=== PATIENT | male | born 1935 | race Caucasian/White ===

== ENCOUNTER 2017-02-17 09:50 | Outpatient (CLI) | payer MEDICARE, MEDICAID ==
[~2017-02-17 09:50] MED LIST: ARICEPT5 MG ORAL; CARDIZEM30 MG ORAL; DONEPEZIL HCL5 M2 ORAL; LEVEMIR100 UNIT/1 SUBQ; MULTI VITAMIN1 EACH ORAL; NOVOLOG100 UNIT/3 SUBQ; OMEPRAZOLE20 M2 ORAL; POTASSIUM CHLO20 ME2 ORAL; PROTEIN POWDER454 GM PO; TYLENOL100 MG/11 PO; VIT C BIOFLAVO PO
--- NOTE | 2017-02-17 10:39 | GI Progress Note ---
Assessment/Plan Problems: (1) GERD (gastroesophageal reflux disease) ICD Codes: K21.9 - GERD (gastroesophageal reflux disease) SNOMED: 765842826 (2) diverting colostomy (3) S/P colostomy ICD Codes: Z93.3 - Colostomy status SNOMED: 21418088, 083105176, 428991572 (4) Anemia ICD Codes: D64.9 - Anemia SNOMED: 144895927 (5) Abdominal pain ICD Codes: R10.9 - Unspecified abdominal pain SNOMED: 19715386 Status: stable Status Narrative Seen with Dr. Ochoa. Assessment/Plan DATE OF PROCEDURE: 12/16/2013 SURGEON: Abner Ochoa M.D. SUMMARY OF FINDINGS: 1. Gastritis status post biopsy. 2. Small hiatal hernia. 3. Incomplete colonoscopic examination taken up to food stuff, see above for detail. RECOMMENDATIONS: 1. Follow up biopsies and treat accordingly. 2. The patient will need a repeat colonoscopy, need a better prep if the evaluation is for screening colonoscopy. hx of megacolon with colostomy colostomy takedown not performed will schedule for colonoscopy - CLD & (Nulytely/Suprep/Movi-Prep) prep instructions to be given. - NPO @ [place] day prior procedure. The patient was seen and examined at bedside and all new and available data was reviewed in the patients chart. I agree with the above findings, impression and plan. (Patient seen earlier today. Signature stamp does not reflect patient encounter time.). - Kay Ochoa MD Subjective Subjective no symptoms hx of diverting colostomy Objective T 98.1 Bp 172/89 P 101 94 RA General Appearance: WD/WN, no apparent distress, alert Cardiovascular: normal rate Respiratory/Chest: normal breath sounds, no respiratory distress Abdominal Exam: non tender, soft, other - colostomy Extremities: non-tender - wheelchair bound Modesta Avilez N.PMarlene Feb 17, 2017 10:39 ABNER OCHOA Feb 24, 2017 12:18
[2017-02-17 13:32] VITALS: BP 172/89
== END 2017-02-17 10:22 | disposition home or self-care (01) ==
LOC: PAN 09:50
DX: K21.9 Gastro-esophageal reflux disease without esophagitis (principal); Z93.3 Colostomy status; D64.9 Anemia, unspecified; R10.9 Unspecified abdominal pain; K44.9 Diaphragmatic hernia without obstruction or gangrene; K29.70 Gastritis, unspecified, without bleeding
CPT/HCPCS: 99212

== ENCOUNTER 2017-03-04 07:49 | Day surgery (SDC) | payer MEDICARE, OTHER ==
[~2017-03-04] VITALS: Ht 167.6 cm; Wt 84.8 kg
[2017-03-04] VITALS (8 sets, daily range): BP systolic 159–188; BP diastolic 75–121
[2017-03-04] MEDS ORDERED: Lidocaine 1% MPF 10mg/ml 5ml ONE (07:50)
[2017-03-04] MEDS ORDERED: D5 1/2NS 1000ml IV ONE (07:50)
[2017-03-04] MEDS ORDERED: Propofol 200mg/20ml IV ONE (07:50)
--- NOTE | 2017-03-04 08:47 | Anethesia Preoperative Eval ---
Anesthesia Pre-op PMH/ROS General Date of Evaluation: Mar 04, 2017 Time of Evaluation: 08:43 Anesthesiologist: michael ASA Score: ASA 3 Mallampati Score Class I : Soft palate, uvula, fauces, pillars visible Class II: Soft palate, uvula, fauces visible Class III: Soft palate, base of uvula visible Class IV: Only hard plate visible Mallampati Classification: Class II Surgeon: daniela Diagnosis: colon screening Surgical Procedure: colonoscopy Anesthesia History: none Social History: smoking - nonsmoker Family History: no anesthesia problems Allergies: Coded Allergies: No Known Allergies (Verified Allergy, Unknown, 12/29/06) Medications: see eMAR Past Medical History Cardiovascular: Reports: HTN Gastrointestinal/Genitourinary: Reports: GERD, CRI, other - diverticulosis, diverting colostomy Neurologic/Psychiatric: Reports: CVA, other - right sided weakness Endocrine: Reports: DM Hematology/Immune: Reports: anemia Other: obesity Anesthesia Pre-op Phys. Exam Physician Exam Constitutional: NAD Neurologic: CN 2-12 intact Cardiovascular: RRR Respiratory: CTA Gastrointestinal: S/NT/ND Airway Exam Mallampati Score: Class II MO: full Neck: decreased rom to lateral rotation TMD: 2fb ROM: limited Teeth: missing Dentures: upper, lower Anesthesia Pre-op A/P Labs Labs Test 03/04/17 09:10 White Blood Count 12.7 K/UL (4.8-10.8) Red Blood Count 4.32 M/UL (4.70-6.10) Hemoglobin 12.0 G/DL (14.2-18.0) Hematocrit 39.1 % (42.0-52.0) Mean Corpuscular Volume 90 FL (80-99) Mean Corpuscular Hemoglobin 27.8 PG (27.0-31.0) Mean Corpuscular Hemoglobin Concent 30.8 G/DL (32.0-36.0) Red Cell Distribution Width 14.1 % (11.6-14.8) Platelet Count 384 K/UL (150-450) Mean Platelet Volume 6.8 FL (6.5-10.1) Neutrophils (%) (Auto) 74.7 % (45.0-75.0) Lymphocytes (%) (Auto) 14.4 % (20.0-45.0) Monocytes (%) (Auto) 7.8 % (1.0-10.0) Eosinophils (%) (Auto) 2.5 % (0.0-3.0) Basophils (%) (Auto) 0.6 % (0.0-2.0) Glucose Level 52 MG/DL (74-106) Accucheck unable to read - low 138 following D50 ivp Risk Assessment & Plan Assessment: asa3 Plan: mac Status Change Before Surgery: No Pre-Antibiotics Drug: DENNISE Cruz Mar 04, 2017 08:47
[2017-03-04] MEDS ORDERED: Midazolam 2mg/2ml Inj IVP PRN (09:00)
[2017-03-04] MEDS ORDERED: DiphenhydrAMINE 50mg/ml Inj IVP PRN (09:00)
[2017-03-04] MEDS ORDERED: fentaNYL 100 mcg/2 mL IV PRN (09:00)
[2017-03-04] MEDS ORDERED: Atropine Inj 1mg/10ml Syr IV PRN (09:00)
--- NOTE | 2017-03-04 09:15 | Short Stay Surgery H&P ---
History of Present Illness History of Present Illness Chief Complaint see recent clinic note HPI Rico Ovideo is a 81 year old male who was admitted on for Colon Screening Patient History Allergies: Coded Allergies: No Known Allergies (Verified Allergy, Unknown, 12/29/06) PAST MEDICAL HISTORY: Past Surgeries: Social History: Medication History Scheduled Acetaminophen (Tylenol), 650 MG PO Q4HR, (Reported) Diltiazem HCl (Diltiazem 12Hr ER), 30 MG ORAL Q8HR, (Reported) Donepezil Hcl* (Aricept*), 5 MG ORAL DAILY, (Reported) Insulin Aspart* (Novolog*), 4 SUBQ BID, (Reported) Insulin Detemir (Levemir), 55 SUBQ Q12HR, (Reported) Insulin Detemir (Levemir), 24 SUBQ Q5PM, (Reported) Multivitamin (Multi Vitamin Daily), 1 TAB ORAL DAILY, (Reported) Omeprazole (Omeprazole), 20 MG ORAL DAILY, (Reported) Potassium Chloride (Potassium Chloride), 20 MEQ ORAL DAILY, (Reported) Miscellaneous Medications Insulin Aspart* (Novolog*), 0 SUBQ, (Reported) Plan Attestation Are the patient's medical conditions optimized for surgery? ANDREA COOK Mar 04, 2017 09:15
--- NOTE | 2017-03-04 09:15 | Pre-Procedure Note/Attestation ---
Pre-Procedure Note/Attestation Complete Prior to Procedure Planned Procedure: not applicable Procedure Narrative: colonoscopy Indications for Procedure Pre-Operative Diagnosis: screening colon Attestation I attest that I discussed the nature of the procedure; its benefits; risks and complications; and alternatives (and the risks and benefits of such alternatives ), prior to the procedure, with the patient (or the patient's legal front desk representative). I attest that, if there was a reasonable possibility of needing a blood transfusion, the patient (or the patient's legal front desk representative) was given the [facility] standardized written summary, pursuant to the Bala Bhavani Blood Safety Act ([place] Health and Safety Code # 1645, as amended). I attest that I re-evaluated the patient just prior to the surgery and that there has been no change in the patient's H&P, except as documented below: ANDREA COOK Mar 04, 2017 09:15
[2017-03-04 09:32] LABS: BASOPHILS % (AUTO) 0.6 % (0.0-2.0); EOSINOPHILS % (AUTO) 2.5 % (0.0-3.0); HEMATOCRIT 39.1 % (42.0-52.0); LYMPHOCYTES % (AUTO) 14.4 % (20.0-45.0); MEAN CORPUSCULAR VOLUME 90 FL (80-99); MONOCYTES % (AUTO) 7.8 % (1.0-10.0); NEUTROPHILS % (AUTO) 74.7 % (45.0-75.0); PLATELET COUNT 384 K/UL (150-450); RED BLOOD COUNT 4.32 M/UL (4.70-6.10); RED CELL DISTRIBUTION WIDTH 14.1 % (11.6-14.8); WHITE BLOOD COUNT 12.7 K/UL (4.8-10.8)
--- NOTE | 2017-03-04 09:48 | Endoscopy Procedure Note ---
Endoscopy Procedure Note Indication for Procedure: screening Procedures Performed: colonoscopy Operative Findings/Diagnosis: diverticuli, poor prep Specimen: none Pt Tolerated Procedure Well: Yes Estimated Blood Loss: none Anesthesiologist: arsalan Anesthesia: MAC Implant(s) used?: No 50 yrs or older w/o bx or poly: No 10yrs. F/U not recommended: Yes If not recommended, why?: Above average risk 10 yrs. F/U needed: Yes 18 years or older w/prev. colo: Yes <3yrs. since last colonoscopy: No ANDREA COOK Mar 04, 2017 09:48
--- NOTE | 2017-03-04 11:41 | Immediate Post-Op Evaluation ---
Immediate Post-Op Evalulation Immediate Post-Op Evalulation Procedure: colonoscopy Date of Evaluation: Mar 04, 2017 Time of Evaluation: 10:07 IV Fluids: D5/0.45ns 75ml: 0.9ns 150ml Blood Products: none Estimated Blood Loss: negligible Blood Pressure Systolic: 187 Blood Pressure Diastolic: 75 Pulse Rate: 85 Respiratory Rate: 18 O2 Sat by Pulse Oximetry: 100 Temperature (Fahrenheit): 97.3 Pain Score (1-10): 0 Nausea: No Vomiting: No Complications none Patient Status: awake, reacts, patent Hydration Status: adequate Drug: DENNISE Cruz Mar 04, 2017 11:41
--- NOTE | 2017-03-04 11:43 | 48 Hour Post Anesthesia Eval ---
Post Anesthesia Evaluation Procedure: colonoscopy Date of Evaluation: Mar 04, 2017 Time of Evaluation: 10:09 Blood Pressure Systolic: 188 0: 85 Pulse Rate: 85 Respiratory Rate: 18 Temperature (Fahrenheit): 97.3 O2 Sat by Pulse Oximetry: 99 Airway: patent Nausea: No Vomiting: No Pain Intensity: 0 Hydration Status: adequate Cardiopulmonary Status: stable Mental Status/LOC: patient returned to baseline Post-Anesthesia Complications: none Follow-up care needed: N/A DENNISE COTTRELL Mar 04, 2017 11:43
--- NOTE | 2017-03-04 15:33 | Procedure Note ---
DATE OF PROCEDURE: 03/04/2017 SURGEON: Abner Ochoa M.D. PROCEDURE: Colonoscopy. ANESTHESIA: Per Dr. Jennifer Rao. INSTRUMENT: Olympus adult flexible colonoscope. INDICATION: Screening colonoscopy evaluation. The patient also is going for the colostomy takedown and he wanted the colonoscopy before that. REASON FOR PROCEDURE: The procedure, risks, benefits, and possible consequences, including hemorrhage, aspiration, perforation and infection, and alternative treatments, were explained to the patient/legal guardian by Dr. Abner Ochoa and the patient/legal guardian understood and accepted these risks. DESCRIPTION OF PROCEDURE: After informed consent was obtained and the patient was adequately sedated, the Olympus adult colonoscope was introduced through the colostomy and advanced to mid transverse colon where we encountered solid stool. We could not pass the scope because there was a solid stool in that area. There was only one diverticula seen right at the opening. The rest of the exam was grossly within normal limits. No obvious colitis, infection, nor any other pathology. SUMMARY OF FINDINGS: 1. Incomplete colonoscopy exam secondary to poor prep. 2. One single diverticula seen right at the opening. 3. Otherwise, no evidence of any colitis at this time. RECOMMENDATIONS: Apparently, the patient is to be evaluated for possible colostomy takedown. At this time, based on the amount of the colon that we saw, there was no obvious colitis, so I think the patient is okay to go for the surgery. I want to thank, Dr. Rene Sin, for this kind referral. Abner Ochoa M.D. DR: MONTRELL JOB#: [id number] CC: Rene Sin M.D.; Fax#: [phone]
--- NOTE | 2017-03-07 15:38 | Cardiology Report ---
APPROVED REPORT EKG Measurement Heart [id number] ME [id number] [id number] Sinus rhythm with occasional premature ventricular complexes Right bundle branch block Left anterior fascicular block Bifascicular block Abnormal ECG
== END 2017-03-04 12:10 | disposition home or self-care (01) ==
LOC: GAS 07:49
DX: Z12.11 Encounter for screening for malignant neoplasm of colon (principal); K57.90 Diverticulosis of intestine, part unspecified, without perforation or abscess without bleeding; I10 Essential (primary) hypertension; Z86.73 Personal history of transient ischemic attack (TIA), and cerebral infarction without residual deficits; E11.9 Type 2 diabetes mellitus without complications
CPT/HCPCS: 36415; 82947; 82962; 85025; 93005; 94003; 94150

== ENCOUNTER 2017-03-26 13:06 | Outpatient (CLI) | payer MEDICARE, OTHER ==
[2017-03-26 13:19] VITALS: BP 150/74
--- NOTE | 2017-03-26 14:22 | GI Progress Note ---
Assessment/Plan Problems: (1) diverting colostomy (2) Anemia ICD Codes: D64.9 - Anemia SNOMED: 826415926 (3) GERD (gastroesophageal reflux disease) ICD Codes: K21.9 - GERD (gastroesophageal reflux disease) SNOMED: 320776570 (4) S/P colostomy ICD Codes: Z93.3 - Colostomy status SNOMED: 83655426, 405284236, 534779284 Status: doing well, stable Status Narrative Seen with Dr. Cook. Assessment/Plan referred for surgical consult, Dr. Traylor for colostomy take down. RTC after procedure. The patient was seen and examined at bedside and all new and available data was reviewed in the patients chart. I agree with the above findings, impression and plan. (Patient seen earlier today. Signature stamp does not reflect patient encounter time.). - Kay Cook MD Subjective Gastrointestinal/Abdominal: Reports: no symptoms Objective Last 24 Hour Vital Signs Date Time Temp Pulse Resp B/P (MAP) Pulse Ox O2 Delivery O2 Flow Rate FiO2 03/26/17 13:19 98.1 82 18 150/74 92 General Appearance: WD/WN, no apparent distress, alert Cardiovascular: normal rate Respiratory/Chest: normal breath sounds, no respiratory distress Abdominal Exam: normal bowel sounds, non tender, soft, other - colostomy Extremities: non-tender Modesta Avilez N.P. Mar 26, 2017 14:22 ANDREA COOK Mar 26, 2017 15:20
== END 2017-03-26 13:40 | disposition home or self-care (01) ==
LOC: PAN 13:06
DX: K21.9 Gastro-esophageal reflux disease without esophagitis (principal); Z93.3 Colostomy status; D64.9 Anemia, unspecified
CPT/HCPCS: 99212

== ENCOUNTER 2017-04-09 09:52 | Outpatient (CLI) | payer MEDICARE, OTHER ==
--- NOTE | 2017-04-09 14:42 | Diagnostic Imaging Report ---
Indication: Preoperative assessment before a colostomy takedown Technique: Continuous helical transaxial imaging of the abdomen and pelvis was obtained from the lung bases to the pubic symphysis. No intravenous contrast was administered. Coronal 2-D reformats were also obtained. Automatic Exposure Control was utilized. Total Dose length Product (DLP): 963.[address] Dose Index Volume (CTDIvol): 18.6 mGy Comparison: 05/02/2014 CT abdomen and pelvis Findings: The patient reportedly had a Yuriy procedure. Currently, there is no rectal stump. The distal rectosigmoid region communicates with left lower quadrant colostomy which appears to be a double barrel type colostomy containing both the efferent rectosigmoid colon as well as the afferent proximal colon. This configuration is unchanged from 05/02/2014. The left lower quadrant colostomy is notable for fairly large parastomal hernia. The rectosigmoid colon is severely distended as was the case previously as well. Currently there is a moderate to severe degree of stool in the distended rectosigmoid colon. There is no evidence of small bowel or large bowel obstruction. There is no free air or free fluid. Arterial vascular calcifications are moderate in degree. The kidneys are somewhat atrophic. There is suggestion of bilateral renal cysts. There is a small right pleural effusion and right posterior basal atelectasis present. Trace pericardial fluid noted. Small hiatal hernia is present. Prostate calcification noted. The bladder is unremarkable. IMPRESSION: Double barrel left lower quadrant colostomy with large parastomal hernia containing fat and small bowel demonstrated. Marked distention of the rectosigmoid colon filled with stool. Similar findings noted previously. Atherosclerotic disease. Atrophic kidneys Bilateral renal cysts not well evaluated on this exam. Small right pleural effusion and atelectasis. Trace pericardial fluid. The CT scanner at [facility] is accredited by the [employer] and the scans are performed using dose optimization techniques as appropriate to a performed exam including Automatic Exposure control.
== END 2017-04-09 11:52 | disposition home or self-care (01) ==
LOC: CAT 09:52
DX: Z01.818 Encounter for other preprocedural examination (principal); K43.5 Parastomal hernia without obstruction or gangrene; I70.90 Unspecified atherosclerosis; N26.1 Atrophy of kidney (terminal); N28.1 Cyst of kidney, acquired; J90 Pleural effusion, not elsewhere classified
CPT/HCPCS: 74176

== ENCOUNTER 2017-07-01 08:18 | Inpatient (IN) | payer MEDICARE, OTHER ==
[~2017-07-01] VITALS: Ht 165.1 cm; Wt 97.2 kg
--- NOTE | 2017-07-01 08:10 | Emergency Room Report ---
History of Present Illness General Chief Complaint: Dyspnea/Respdistress Source: Patient Present Illness HPI Patient is an 81-year-old male brought in by EMS after increased difficulty breathing and desaturation. Patient was started on supplemental oxygen. Patient noted to have rhonchi by EMS. The patient had reportedly been drinking some fluid and subsequently a possibly aspirated. Patient had a history of CVA. Allergies: Coded Allergies: No Known Allergies (Verified Allergy, Unknown, 12/29/06) Patient History Past Medical History: old chart reviewed Reviewed Nursing Documentation: PMH: Agreed; PSxH: Agreed Nursing Documentation-PMH Hx Cardiac Problems: Yes Hx Hypertension: Yes Hx Gastrointestinal Problems: Yes - colostomy Hx Neurological Problems: Yes - dementia Hx Cerebrovascular Accident: Yes Review of Systems All Other Systems: limited - by acuity Physical Exam Vital Signs Date Time Temp Pulse Resp B/P (MAP) Pulse Ox O2 Delivery O2 Flow Rate FiO2 07/01/17 07:58 98.2 128 26 243/115 95 Non-Rebreather 15.0 98.2 Sp02 EP Interpretation: reviewed, normal General Appearance: normal inspection, alert, GCS 15, obese, Chronically Ill Head: atraumatic ENT: normal ENT inspection, hearing grossly normal, normal voice Neck: normal inspection, full range of motion, supple, no bony tend Respiratory: no retraction, respiratory distress, rhonchi Cardiovascular #1: regular rate, rhythm, no edema Gastrointestinal: normal inspection, normal bowel sounds, non tender, soft, no guarding, no hernia Genitourinary: no CVA tenderness Musculoskeletal: normal inspection, back normal Neurologic: normal inspection, alert, responsive, motor weakness Psychiatric: normal inspection, judgement/insight normal, mood/affect normal Skin: normal inspection, normal color, no rash Medical Decision Making Diagnostic Impression: Primary Impression: Sinus tachycardia Additional Impressions: Bifascicular bundle branch block Oxygen desaturation ER Course Patient presented for shortness of breath.Differential included but was not limited to anemia, pneumonia, pneumothorax, myocardial infarction, pericardial effusion, congestive heart failure, acidosis. Because of complexity of patient' s case laboratory testing and imaging studies were ordered. I EKG interpreted by me showed sinus tachycardia with a rate of [address] changes. Patient was noted to have a bifascicular block. Chest x-ray read by radiology showed the right-sided patchy infiltrate as well as small right pleural effusion. The patient was given IV antibiotics. The patient's lactic acid level was noted to be initially greater than 2 repeat lactic acid level was improved after BiPAP Labs Test 07/01/17 08:23 07/01/17 09:52 White Blood Count 13.5 K/UL (4.8-10.8) Red Blood Count 4.71 M/UL (4.70-6.10) Hemoglobin 12.6 G/DL (14.2-18.0) Hematocrit 40.8 % (42.0-52.0) Mean Corpuscular Volume 87 FL (80-99) Mean Corpuscular Hemoglobin 26.8 PG (27.0-31.0) Mean Corpuscular Hemoglobin Concent 31.0 G/DL (32.0-36.0) Red Cell Distribution Width 15.6 % (11.6-14.8) Platelet Count 320 K/UL (150-450) Mean Platelet Volume 6.5 FL (6.5-10.1) Neutrophils (%) (Auto) 50.4 % (45.0-75.0) Lymphocytes (%) (Auto) 36.8 % (20.0-45.0) Monocytes (%) (Auto) 5.4 % (1.0-10.0) Eosinophils (%) (Auto) 6.3 % (0.0-3.0) Basophils (%) (Auto) 1.2 % (0.0-2.0) Urine Color Pale yellow Urine Appearance Clear Urine pH 6 (4.5-8.0) Urine Specific Osborne 1.015 (1.005-1.035) Urine Protein 4+ (NEGATIVE) Urine Glucose (UA) 2+ (NEGATIVE) Urine Ketones Negative (NEGATIVE) Urine Occult Blood 2+ (NEGATIVE) Urine Nitrite Negative (NEGATIVE) Urine Bilirubin Negative (NEGATIVE) Urine Urobilinogen Normal MG/DL (0.0-1.0) Urine Leukocyte Esterase Negative (NEGATIVE) Urine RBC 2-4 /HPF (0 - 0) Urine WBC 0-2 /HPF (0 - 0) Urine Squamous Epithelial Cells Occasional /LPF Urine Amorphous Sediment Few /LPF (NONE) Urine Bacteria Occasional /HPF (NONE) Sodium Level 142 MMOL/L (136-145) Potassium Level 3.9 MMOL/L (3.5-5.1) Chloride Level 106 MMOL/L (98-107) Carbon Dioxide Level 28 MMOL/L (21-32) Anion Gap 9 mmol/L (5-15) Blood Urea Nitrogen 37 mg/dL (7-18) Creatinine 2.1 MG/DL (0.55-1.30) Estimat Glomerular Filtration Rate mL/min (>60) Glucose Level 198 MG/DL (74-106) Calcium Level 9.4 MG/DL (8.5-10.1) Total Bilirubin 0.3 MG/DL (0.2-1.0) Aspartate Amino Transf (AST/SGOT) 15 U/L (15-37) Alanine Aminotransferase (ALT/SGPT) 23 U/L (12-78) Alkaline Phosphatase 106 U/L (46-116) Total Creatine Kinase 39 U/L (26-308) Creatine Kinase MB 0.7 NG/ML (0.0-3.6) Creatine Kinase MB Relative Index 1.7 Troponin I 0.000 ng/mL (0.000-0.056) Pro-B-Type Natriuretic Peptide 1646 pg/mL (0-125) Total Protein 9.0 G/DL (6.4-8.2) Albumin 2.9 G/DL (3.4-5.0) Globulin 6.1 g/dL Albumin/Globulin Ratio 0.5 (1.0-2.7) Lipase 597 U/L (73-393) EKG Diagnostic Results Rate: tachycardiac Rhythm: NSR ST Segments: no acute changes Rhythm Strip Diag. Results EP Interpretation: yes Rhythm: NSR, no PVC's, no ectopy Chest X-Ray Diagnostic Results Chest X-Ray Diagnostic Results : Chest X-Ray Ordered: Yes # of Views/Limited/Complete: 1 View Indication: Shortness of Breath EP Interpretation: No Interpretation: no pneumothorax, other - patchy airspace disease, small right effusion Last Vital Signs Date Time Temp Pulse Resp B/P (MAP) Pulse Ox O2 Delivery O2 Flow Rate FiO2 07/01/17 07:58 98.2 128 26 243/115 95 Non-Rebreather 15.0 98.2 Status: unchanged Disposition: ADMITTED INPATIENT Condition: Serious Giancarlo Velasquez July 01, 2017 08:10
[2017-07-01 08:37] VITALS: BP 155/79
[2017-07-01 08:55] LABS: APPEARANCE,URINE CLEAR; BILIRUBIN, URINE NEGATIVE (NEGATIVE); COLOR,URINE PALE YELLOW; GLUCOSE, URINE (UA) 2+ (NEGATIVE); KETONES,URINE NEGATIVE (NEGATIVE); LEUKOCYTE ESTERASE ,URINE NEGATIVE (NEGATIVE); NITRITE,URINE NEGATIVE (NEGATIVE); PH,URINE 6 (4.5-8.0); PROTEIN,URINE 4+ (NEGATIVE); UROBILINOGEN,URINE NORMAL MG/DL (0.0-1.0)
[2017-07-01 09:10] LABS: ANION GAP 9 mmol/L (5-15); BLOOD UREA NITROGEN 37 mg/dL (7-18); CALCIUM 9.4 MG/DL (8.5-10.1); CARBON DIOXIDE 28 MMOL/L (21-32); CHLORIDE 106 MMOL/L (98-107); CREATININE 2.1 MG/DL (0.55-1.30); POTASSIUM 3.9 MMOL/L (3.5-5.1); SODIUM 142 MMOL/L (136-145)
--- NOTE | 2017-07-01 09:13 | Pulmonolgy Critical Care Note ---
Critical Care - Asmt/Plan Problems: (1) Hypertensive urgency (2) BiPAP (biphasic positive airway pressure) dependence (3) Acute hypoxemic respiratory failure (4) Oxygen desaturation (5) Bifascicular bundle branch block (6) HTN (hypertension) (7) CVA (cerebral infarction) (8) CRI (chronic renal insufficiency) (9) DM (diabetes mellitus) (10) GERD (gastroesophageal reflux disease) (11) diverting colostomy (12) Diverticulitis Respiratory: CXR, ABG, other - Continue BiPAP for now, will attempt to wean later, optimize pulmonary hygiene/mobilzie as tolerated, RTC and PRN HHN's, F/U D-dimer Cardiac: continue to monitor HR/BP, cardiac imaging - F/U TTE, other - PRN anti -hypertensive, cards eval Renal: F/U I&O, check electrolytes, other - Renal eval Infectious Disease: check cultures, add antibiotics - Vancomycin and Zosyn Gastrointestinal: hold feedings - until respiratory status stable, then will need a swallow eval Endocrine: monitor blood sugar, check TSH, check HgA1C, continue sliding scale insulin Hematologic: monitor H/H, other - F/U labs all pending Neurologic: keep patient comfortable Prophylaxis: Protonix, Heparin - SQ Disposition: transfer to - ICU Time Spent (Minutes): 60 Notes Reviewed: other - ER Discussed with: nurses Critical Care - Objective Last 24 Hour Vital Signs Date Time Temp Pulse Resp B/P (MAP) Pulse Ox O2 Delivery O2 Flow Rate FiO2 07/01/17 08:57 100 07/01/17 08:39 134 38 Non-Rebreather 15.0 07/01/17 08:37 98.2 134 38 155/79 100 Non-Rebreather 15.0 98.2 07/01/17 07:58 98.2 128 26 243/115 95 Non-Rebreather 15.0 98.2 Status: awake, other - on BiPAP Condition: critical HEENT: atraumatic, normocephalic Neck: full ROM Lungs: rales - BiB rales, rhonchi - scattered Heart: HR/BP unstable Abdomen: soft, non-tender, active bowel sounds, other - colostomy Extremities: no C/C/E Accucheck: 228 Critical Care - Subjective ROS Limited/Unobtainable: Yes ICU Day: 1 Intubation Day: N/A Interval Events: 81 M h/o prior CVA, PNA, colostomy, CKD, HTN, GERD BIB EMS from SNF with acute hypoxemia and SOB, no wheezing, no F/C, BP elevated in ER, initially on 15L NRBFM, then placed on BiPAP, labs pending. Per report may have aspirated while drinking. CXR with mild PVC and small R effusion, R base atx vs infiltrate, ECG with bifasicular block, remainder of labs pending. Condition: critical IV Access: peripheral EKG Rhythm: Sinus Rhythm FI02: 100 Sputum Amount: Scant Subjective: + SOB, + cough, no wheezing, no CP, no F/C, no NVDC, no abdominal pain or urinary complaints CXR: Mild PVC, small R effusion, R base atx/inf Labs: PENDING ASIF MOORE M.D. July 01, 2017 09:13
[2017-07-01 09:14] LABS: BASOPHILS % (AUTO) 1.2 % (0.0-2.0); EOSINOPHILS % (AUTO) 6.3 % (0.0-3.0); HEMATOCRIT 40.8 % (42.0-52.0); HEMOGLOBIN 12.6 G/DL (14.2-18.0); LYMPHOCYTES % (AUTO) 36.8 % (20.0-45.0); MEAN CORPUSCULAR VOLUME 87 FL (80-99); MONOCYTES % (AUTO) 5.4 % (1.0-10.0); NEUTROPHILS % (AUTO) 50.4 % (45.0-75.0); PLATELET COUNT 320 K/UL (150-450); RED BLOOD COUNT 4.71 M/UL (4.70-6.10); RED CELL DISTRIBUTION WIDTH 15.6 % (11.6-14.8); WHITE BLOOD COUNT 13.5 K/UL (4.8-10.8)
[2017-07-01 09:23] LABS: ALANINE AMINOTRANSFERASE 23 U/L (12-78); ALBUMIN 2.9 G/DL (3.4-5.0); ALBUMIN/GLOBULIN RATIO 0.5 (1.0-2.7); ALKALINE PHOSPHATASE 106 U/L (46-116); ASPARTATE AMINO TRANSFERASE 15 U/L (15-37); BILIRUBIN,TOTAL 0.3 MG/DL (0.2-1.0); CKMB 0.7 NG/ML (0.0-3.6); CREATINE KINASE 39 U/L (26-308)
[2017-07-01 09:50] VITALS: BP 136/72
[2017-07-01] MEDS ORDERED: Ampicillin/Sulbactam Sod 3 GM in NS 110 ML IVPB ONE (10:00)
--- NOTE | 2017-07-01 10:32 | Diagnostic Imaging Report ---
Indication: Shortness of breath Technique: XRAY Chest 1v Comparison: 02/19/2009 Findings: Heart size and mediastinal contours are stable compared to the prior exam allowing for differences in patient positioning. Atherosclerotic calcifications noted in the aorta. There patchy airspace opacities in the right lower lung with a small right pleural effusion. The size of most concerning for pneumonia. Clinical correlation and radiographic follow-up to resolution is recommended. There is no pneumothorax. No acute osseous abnormality is seen. IMPRESSION: Hazy right lower lung airspace opacities and a small right pleural effusion. Findings are most concerning for pneumonia. Clinical correlation and radiographic follow-up to resolution recommended.
[2017-07-01 12:00] VITALS: BP 160/94
[2017-07-01] MEDS ORDERED: Acetaminophen 500mg (ES) tab ORAL PRN ×2 (12:00)
--- NOTE | 2017-07-01 12:59 | GI Initial Consult Note ---
History of Present Illness General Date patient seen: July 01, 2017 Time patient seen: 12:57 Reason for Hospitalization: Dyspnea/Respdistress Referring physician: DONNIE PORTER Reason for Consultation: COLOSTOMY Present Illness HPI Patient is an 81-year-old male brought in by EMS after increased difficulty breathing and desaturation. Patient was started on supplemental oxygen. Patient noted to have rhonchi by EMS. The patient had reportedly been drinking some fluid and subsequently a possibly aspirated. H/o prior CVA, PNA, colostomy , CKD, HTN, GERD BIB EMS from SNF with acute hypoxemia and SOB. Patient was recently seen in our clinic, referred to surgery for possible colostomy take down. Pt seen, awake currently with SOB on Bibap. Labs reviewed presents with mild leukocytosis, renal insufficiency and elevated lipase levels. Had recent colonoscopy February 2017, with incomplete exam due to poor prep. Home Meds Reported Medications Insulin Aspart* (NOVOLOG*) 100 Unit/1 Ml Insuln.pen, 6 SUBQ 1200/5 PM , #1 EA 0 Refills 11/22/13 Donepezil Hcl* (ARICEPT*) 5 Mg Tablet, 5 MG ORAL DAILY, TAB 11/22/13 Acetaminophen (TYLENOL) 100 Mg/1 Ml Drops.susp, 650 MG PO Q4HR 10/12/12 Insulin Detemir (LEVEMIR) 100 Unit/1 Ml Vial, 30 UNIT SUBQ 9 PM , VIAL 10/12/12 Insulin Detemir (LEVEMIR) 100 Unit/1 Ml Vial, 75 SUBQ 9AM, VIAL 10/12/12 Potassium Chloride (POTASSIUM CHLORIDE) 20 Meq Packet, 20 MEQ ORAL DAILY, #30 PKT 0 Refills 10/12/12 Diltiazem HCl (Diltiazem 12Hr ER) 30 Mg Tab, 30 MG ORAL Q8HR, TAB 10/12/12 Multivitamin (MULTI VITAMIN DAILY) 1 Each Tablet, 1 TAB ORAL DAILY, #30 TAB 0 Refills 10/12/12 Med list reviewed/reconciled: Yes Allergies: Coded Allergies: No Known Allergies (Verified , 12/29/06) Patient History Limited by: medical condition History Provided By: Medical Record Past Medical History: other - see HPI Past Surgical History: other - colostomy placement Social History: Denies: smoking, alcohol use, drug use, other Review of Systems All Other Systems: negative except mentioned in HPI Physical Exam Vital Signs Date Time Temp Pulse Resp B/P (MAP) Pulse Ox O2 Delivery O2 Flow Rate FiO2 07/01/17 07:58 98.2 128 26 243/115 95 Non-Rebreather 15.0 98.2 07/01/17 08:57 100 Sp02 EP Interpretation: reviewed, normal Labs Laboratory Tests Test 07/01/17 08:23 07/01/17 09:52 07/01/17 10:40 White Blood Count 13.5 K/UL (4.8-10.8) H Red Blood Count 4.71 M/UL (4.70-6.10) Hemoglobin 12.6 G/DL (14.2-18.0) L Hematocrit 40.8 % (42.0-52.0) L Mean Corpuscular Volume 87 FL (80-99) Mean Corpuscular Hemoglobin 26.8 PG (27.0-31.0) L Mean Corpuscular Hemoglobin Concent 31.0 G/DL (32.0-36.0) L Red Cell Distribution Width 15.6 % (11.6-14.8) H Platelet Count 320 K/UL (150-450) Mean Platelet Volume 6.5 FL (6.5-10.1) Neutrophils (%) (Auto) 50.4 % (45.0-75.0) Lymphocytes (%) (Auto) 36.8 % (20.0-45.0) Monocytes (%) (Auto) 5.4 % (1.0-10.0) Eosinophils (%) (Auto) 6.3 % (0.0-3.0) H Basophils (%) (Auto) 1.2 % (0.0-2.0) Urine Color Pale yellow Urine Appearance Clear Urine pH 6 (4.5-8.0) Urine Specific [place] 1.015 (1.005-1.035) Urine Protein 4+ (NEGATIVE) H Urine Glucose (UA) 2+ (NEGATIVE) H Urine Ketones Negative (NEGATIVE) Urine Occult Blood 2+ (NEGATIVE) H Urine Nitrite Negative (NEGATIVE) Urine Bilirubin Negative (NEGATIVE) Urine Urobilinogen Normal MG/DL (0.0-1.0) Urine Leukocyte Esterase Negative (NEGATIVE) Urine RBC 2-4 /HPF (0 - 0) H Urine WBC 0-2 /HPF (0 - 0) Urine Squamous Epithelial Cells Occasional /LPF Urine Amorphous Sediment Few /LPF (NONE) H Urine Bacteria Occasional /HPF (NONE) Sodium Level 142 MMOL/L (136-145) Potassium Level 3.9 MMOL/L (3.5-5.1) Chloride Level 106 MMOL/L (98-107) Carbon Dioxide Level 28 MMOL/L (21-32) Anion Gap 9 mmol/L (5-15) Blood Urea Nitrogen 37 mg/dL (7-18) H Creatinine 2.1 MG/DL (0.55-1.30) H Estimat Glomerular Filtration Rate mL/min (>60) Glucose Level 198 MG/DL (74-106) H Lactic Acid Level 2.40 mmol/L (0.66-2.22) H 1.30 mmol/L (0.66-2.22) Calcium Level 9.4 MG/DL (8.5-10.1) Total Bilirubin 0.3 MG/DL (0.2-1.0) Aspartate Amino Transf (AST/SGOT) 15 U/L (15-37) Alanine Aminotransferase (ALT/SGPT) 23 U/L (12-78) Alkaline Phosphatase 106 U/L (46-116) Total Creatine Kinase 39 U/L (26-308) Creatine Kinase MB 0.7 NG/ML (0.0-3.6) Creatine Kinase MB Relative Index 1.7 Troponin I 0.000 ng/mL (0.000-0.056) Pro-B-Type Natriuretic Peptide 1646 pg/mL (0-125) H Total Protein 9.0 G/DL (6.4-8.2) H Albumin 2.9 G/DL (3.4-5.0) L Globulin 6.1 g/dL Albumin/Globulin Ratio 0.5 (1.0-2.7) L Lipase 597 U/L (73-393) H Arterial Blood pH 7.300 (7.350-7.450) Arterial Blood Partial Pressure CO2 49.9 mmHg (35.0-45.0) H Arterial Blood Partial Pressure O2 506.0 mmHg (75.0-100.0) H Arterial Blood HCO3 24.2 mmol/L (22.0-26.0) Arterial Blood Oxygen Saturation 99.3 % (92.0-98.0) H Arterial Blood Base Excess -2.4 Guero Test Positive General Appearance: well appearing, no apparent distress, alert Head: normocephalic EENT: PERRL/EOMI, normal ENT inspection Neck: supple Respiratory: normal breath sounds, no respiratory distress Cardiovascular: normal rate Gastrointestinal: normal inspection, non tender, soft, normal bowel sounds, non -distended Rectal: deferred Genitourinary: deferred Musculoskeletal: normal inspection, back normal Neurologic: normal inspection, alert, oriented x3, responsive Psychiatric: normal inspection, judgement/insight normal, memory normal Skin: normal inspection, normal color, no rash, warm/dry, palpation normal, well hydrated Lymphatic: normal inspection, no adenopathy Current Medications Current Medications Medications (Trade) Dose Ordered Sig/Jared Route PRN Reason Start Time Stop Time Status Last Admin Dose Admin Acetaminophen (Tylenol) 500 mg Q6HR PRN ORAL moderate pain (4-6) 07/01/17 12:00 07/31/17 11:59 Acetaminophen (Tylenol) 650 mg Q4H PRN ORAL Mild Pain/Temp > 100.5 07/01/17 12:00 07/31/17 11:59 Acetaminophen (Tylenol) 1,000 mg Q6HR PRN ORAL Severe Pain (Pain Scale 7-10) 07/01/17 12:00 07/31/17 11:59 Dextrose (Dextrose 50%) 25 ml STAT PRN IV Hypoglycemia 07/01/17 11:45 07/31/17 11:44 Dextrose (Dextrose 50%) 50 ml STAT PRN IV Hypoglycemia 07/01/17 11:45 07/31/17 11:44 Diltiazem HCl (Cardizem) 30 mg Q8HR ORAL 07/01/17 14:00 07/31/17 13:59 Donepezil HCl (Aricept) 5 mg DAILY ORAL 07/02/17 09:00 08/01/17 08:59 Multivitamins (Multivitamins) 1 tab DAILY ORAL 07/02/17 09:00 08/01/17 08:59 Potassium Chloride (K-Dur) 20 meq DAILY ORAL 07/02/17 09:00 08/01/17 08:59 GI: Plan Problems: (1) Oxygen desaturation (2) diverting colostomy (3) DM (diabetes mellitus) (4) GERD (gastroesophageal reflux disease) (5) Diverticulitis (6) Abdominal pain (7) CVA (cerebral infarction) Plan maintain NPO + IVFs until respiratory status stable will need swallow evaluation after prn transfusions ppi colostomy care abx per ID trend lipase fu labs, lipid panel Discussed with Dr. Ochoa. Thank you for this patient referral, we will follow. The patient was seen and examined at bedside and all new and available data was reviewed in the patients chart. I agree with the above findings, impression and plan. (Patient seen earlier today. Signature stamp does not reflect patient encounter time.). - MD Fatmata BlankenshipDign[facility] Michael Renee July 01, 2017 12:59
[2017-07-01] MEDS: dilTIAZem HCl 30mg tab ORAL SCH ×2 (14:00→21:27)
[2017-07-01 16:00] VITALS: BP 159/91
--- NOTE | 2017-07-01 16:07 | Cardiology Report ---
APPROVED REPORT EXAM: Two-dimensional and M-mode echocardiogram with Doppler and color Doppler. INDICATION Congestive Heart Failure M-Mode DIMENSIONS Left Atrium (MM)2.9 (1.6-4.0cm) Aortic Root3.5 (2.0-3.7cm) Aortic Cusp Exc.1.8 (1.5-2.0cm) Technically difficult study due to poor acoustical windows. M-mode measurements not obtainable due to cardiac structure. Normal left ventricular chamber size, systolic function and wall motion. Left ventricular ejection fraction estimated to be 55-60% to extend visualized. No evidence of left ventricular hypertrophy. No evidence of pericardial or pleural effusion. All other cardiac chamber sizes are within normal limits. Focal aortic valve sclerosis with adequate cusp excursion. Thickened mitral valve leaflets with normal excursion. Mild mitral annulus and aortic root calcification. Pulmonic valve not well visualized. Normal tricuspid valve structure. IVC is normal in size and collapsible with respiration. A color flow and spectral Doppler study was performed and revealed: No aortic regurgitation. Trace mitral regurgitation. Mitral inflow velocities indicates possible pseudo normalization pattern implying significant left ventricular diastolic dysfunction. Mild tricuspid regurgitation. Tricuspid systolic velocities suggests peak right ventricular systolic pressure of 44 mmHg Consistent with mild pulmonary hypertension. Pulmonic regurgitation present.
[2017-07-01] MEDS: Potassium Chloride 10 MEQ in D5 1/2NS 1,000 ML IV SCH (16:13)
[2017-07-01] MEDS ORDERED: NovoLOG Insulin Flexpen SUBQ SCH (16:30)
[2017-07-01] MEDS ORDERED: Albuterol/Ipratropium 3ml neb HHN PRN (18:15)
--- NOTE | 2017-07-01 18:45 | Consultation ---
DATE OF CONSULTATION: 07/01/2017 INFECTIOUS DISEASE CONSULTATION CONSULTING PHYSICIAN: Cheo Bhagat M.D. PRIMARY ATTENDING PHYSICIAN: Rene Sin M.D. REASON FOR CONSULT: Sepsis, pneumonia. HISTORY OF PRESENT ILLNESS: The patient is an 81-year-old white man who is a custodial resident admitted today because of decrease in O2 saturation and shortness of breath. The patient was drinking water and there was a concern of possible aspiration. The patient was tachycardic at the time of admission with a heart rate up to 134, was put on BiPAP, and had mild leukocytosis. PAST MEDICAL HISTORY: Significant for hypertension, diabetes mellitus type 2, dementia, history of CVA, and status post colostomy. MEDICATIONS: Getting Aricept, multivitamin, potassium chloride, insulin, Cardizem, and Tylenol. ALLERGIES: No known drug allergies. SOCIAL HISTORY: [facility] resident. No history of alcohol, drug abuse, or smoking. REVIEW OF SYSTEMS: Unobtainable. PHYSICAL EXAMINATION: VITAL SIGNS: Temperature 98.2 degrees, pulse 90, and blood pressure 130/97. GENERAL APPEARANCE: Seems to be well developed, obese. HEAD AND NECK: He is on BiPAP. [place] conjunctivae. HEART: Normal rate, regular. LUNGS: Clear. ABDOMEN: Soft. There is a scar of midline surgery. There is colostomy in the left lower quadrant. EXTREMITIES: He has no edema. NEUROLOGIC: Awake and alert, but seems to be confused. LABORATORY AND DIAGNOSTIC DATA: WBC 13.5, hemoglobin 12.6, hematocrit 40.8, and platelets 320. Sodium 142, potassium 3.9, chloride 106, bicarbonate 28, BUN 37 and creatinine 2.1. Lactic acid was elevated at 2.4, coming down to 1.3. IMPRESSION: Sepsis with tachycardia and leukocytosis. Chest x-ray showed right-sided infiltrate, likely the source of sepsis is pneumonia. The patient had lactic acidosis, renal failure, respiratory failure, currently on BiPAP, has diabetes mellitus, and advanced dementia. RECOMMENDATION: We will start on IV Zosyn. We will follow up the clinical course and labs. At the end of my exam, I thank Dr. Sin for involving me in the care of this patient. Cheo Bhagat M.D. DR: CHANI JOB#: [id number] CC:
[2017-07-01] MEDS: Albuterol/Ipratropium 3ml neb HHN SCH (19:16)
[2017-07-01 20:00] VITALS: BP 188/93
--- NOTE | 2017-07-01 20:47 | Cardiology Progress Note ---
Assessment/Plan Assessment/Plan The patient is seen and examined, full consult note will be dictated shortly. Objective Last 24 Hour Vital Signs Date Time Temp Pulse Resp B/P (MAP) Pulse Ox O2 Delivery O2 Flow Rate FiO2 07/01/17 19:19 90 18 100 Bi-pap 07/01/17 19:17 88 18 100 Full Face 30 07/01/17 19:16 86 18 99 Bi-pap 07/01/17 17:15 78 16 100 Full Face 30 07/01/17 16:00 96.8 78 19 159/91 100 Bi-pap 30 96.8 07/01/17 16:00 30 07/01/17 16:00 75 07/01/17 15:14 75 15 100 Full Face 30 07/01/17 12:43 80 16 100 Full Face 40 07/01/17 12:00 40 07/01/17 12:00 97.7 90 19 160/94 100 Bi-pap 40 97.7 07/01/17 12:00 88 07/01/17 11:28 90 19 130/97 100 Room Air 07/01/17 10:32 91 22 100 Facial 40 07/01/17 09:50 98.2 100 19 136/72 100 Bi-pap 98.2 07/01/17 08:58 101 28 100 Facial 100 07/01/17 08:57 100 07/01/17 08:39 134 38 Non-Rebreather 15.0 07/01/17 08:37 98.2 134 38 155/79 100 Non-Rebreather 15.0 98.2 07/01/17 07:58 98.2 128 26 243/115 95 Non-Rebreather 15.0 98.2 Laboratory Tests Test 07/01/17 08:23 07/01/17 09:52 07/01/17 10:40 07/01/17 19:10 White Blood Count 13.5 K/UL (4.8-10.8) H Red Blood Count 4.71 M/UL (4.70-6.10) Hemoglobin 12.6 G/DL (14.2-18.0) L Hematocrit 40.8 % (42.0-52.0) L Mean Corpuscular Volume 87 FL (80-99) Mean Corpuscular Hemoglobin 26.8 PG (27.0-31.0) L Mean Corpuscular Hemoglobin Concent 31.0 G/DL (32.0-36.0) L Red Cell Distribution Width 15.6 % (11.6-14.8) H Platelet Count 320 K/UL (150-450) Mean Platelet Volume 6.5 FL (6.5-10.1) Neutrophils (%) (Auto) 50.4 % (45.0-75.0) Lymphocytes (%) (Auto) 36.8 % (20.0-45.0) Monocytes (%) (Auto) 5.4 % (1.0-10.0) Eosinophils (%) (Auto) 6.3 % (0.0-3.0) H Basophils (%) (Auto) 1.2 % (0.0-2.0) Urine Color Pale yellow Urine Appearance Clear Urine pH 6 (4.5-8.0) Urine Specific [place] 1.015 (1.005-1.035) Urine Protein 4+ (NEGATIVE) H Urine Glucose (UA) 2+ (NEGATIVE) H Urine Ketones Negative (NEGATIVE) Urine Occult Blood 2+ (NEGATIVE) H Urine Nitrite Negative (NEGATIVE) Urine Bilirubin Negative (NEGATIVE) Urine Urobilinogen Normal MG/DL (0.0-1.0) Urine Leukocyte Esterase Negative (NEGATIVE) Urine RBC 2-4 /HPF (0 - 0) H Urine WBC 0-2 /HPF (0 - 0) Urine Squamous Epithelial Cells Occasional /LPF Urine Amorphous Sediment Few /LPF (NONE) H Urine Bacteria Occasional /HPF (NONE) Sodium Level 142 MMOL/L (136-145) Potassium Level 3.9 MMOL/L (3.5-5.1) Chloride Level 106 MMOL/L (98-107) Carbon Dioxide Level 28 MMOL/L (21-32) Anion Gap 9 mmol/L (5-15) Blood Urea Nitrogen 37 mg/dL (7-18) H Creatinine 2.1 MG/DL (0.55-1.30) H Estimat Glomerular Filtration Rate mL/min (>60) Glucose Level 198 MG/DL (74-106) H Lactic Acid Level 2.40 mmol/L (0.66-2.22) H 1.30 mmol/L (0.66-2.22) Calcium Level 9.4 MG/DL (8.5-10.1) Total Bilirubin 0.3 MG/DL (0.2-1.0) Aspartate Amino Transf (AST/SGOT) 15 U/L (15-37) Alanine Aminotransferase (ALT/SGPT) 23 U/L (12-78) Alkaline Phosphatase 106 U/L (46-116) Total Creatine Kinase 39 U/L (26-308) Creatine Kinase MB 0.7 NG/ML (0.0-3.6) Creatine Kinase MB Relative Index 1.7 Troponin I 0.000 ng/mL (0.000-0.056) 0.221 ng/mL (0.000-0.056) Pro-B-Type Natriuretic Peptide 1646 pg/mL (0-125) H Total Protein 9.0 G/DL (6.4-8.2) H Albumin 2.9 G/DL (3.4-5.0) L Globulin 6.1 g/dL Albumin/Globulin Ratio 0.5 (1.0-2.7) L Lipase 597 U/L (73-393) H Arterial Blood pH 7.300 (7.350-7.450) Arterial Blood Partial Pressure CO2 49.9 mmHg (35.0-45.0) H Arterial Blood Partial Pressure O2 506.0 mmHg (75.0-100.0) H Arterial Blood HCO3 24.2 mmol/L (22.0-26.0) Arterial Blood Oxygen Saturation 99.3 % (92.0-98.0) H Arterial Blood Base Excess -2.4 Guero Test Positive Microbiology Date/Time Source Procedure Growth Status 07/01/17 10:00 Nasal Nares Influenza Types A,B Antigen (NELA) - Final Complete JUAN F WILKINS July 01, 2017 20:47
[2017-07-01] MEDS: Piperacillin/Tazobactam 3.375 GM in D5W 110 ML IVPB SCH (21:26)
[2017-07-01] MEDS: Heparin 5000 units/ml inj SUBQ SCH (21:31)
[2017-07-02] VITALS: BP 166/88
[2017-07-02] MEDS: Albuterol/Ipratropium 3ml neb HHN SCH ×4 (00:35→20:25)
[2017-07-02 04:00] VITALS: BP 161/89
[2017-07-02 04:27] LABS: BASOPHILS % (AUTO) 1.1 % (0.0-2.0); HEMATOCRIT 39.3 % (42.0-52.0); HEMOGLOBIN 12.2 G/DL (14.2-18.0); LYMPHOCYTES % (AUTO) 15.7 % (20.0-45.0); MEAN CORPUSCULAR VOLUME 86 FL (80-99); MONOCYTES % (AUTO) 7.3 % (1.0-10.0); NEUTROPHILS % (AUTO) 72.9 % (45.0-75.0); PLATELET COUNT 267 K/UL (150-450); RED BLOOD COUNT 4.58 M/UL (4.70-6.10); RED CELL DISTRIBUTION WIDTH 15.4 % (11.6-14.8)
[2017-07-02 04:54] LABS: ANION GAP 9 mmol/L (5-15); BLOOD UREA NITROGEN 32 mg/dL (7-18); CALCIUM 8.9 MG/DL (8.5-10.1); CARBON DIOXIDE 25 MMOL/L (21-32); CHLORIDE 109 MMOL/L (98-107); CHOLESTEROL 148 MG/DL (< 200); CREATININE 1.9 MG/DL (0.55-1.30); HDL CHOLESTEROL 55 MG/DL (40-60); PHOSPHORUS 3.5 MG/DL (2.5-4.9); SODIUM 143 MMOL/L (136-145); TRIGLYCERIDES 84 MG/DL (30-150)
--- NOTE | 2017-07-02 05:45 | History and Physical Report ---
DATE OF ADMISSION: 07/01/2017 HISTORY OF PRESENT ILLNESS: The patient is transferred via 911 because of desaturation and as well as feeling nervous at the [place] [facility]. The patient is on BiPAP. He was initially put on 10 liters at the [place] [facility] and he has been put on BiPAP at [place] and is admitted to [facility]. The patient also was initially tachycardic. The patient has also had colostomy and also history of megacolon. The patient is a poor historian and cannot get a reliable history from him, which is his baseline. The patient is again admitted for sepsis and desaturation. PAST MEDICAL HISTORY: Organic brain syndrome, hypertension, NIDDM, history of megacolon, history of imbalance, history of CVA, history of bifascicular right bundle-branch block, history of diverticulosis, and anemia. PAST SURGICAL HISTORY: Repair of megacolon, diverting colostomy. MEDICATIONS: Diltiazem, benazepril, insulin, multivitamin, . FAMILY HISTORY: Noncontributory. SOCIAL HISTORY: Denies history of alcohol or illicit drugs. Lives in a [place] [facility]. REVIEW OF SYSTEMS: Unable to obtain. The patient is mostly aphasic and had previous strokes. PHYSICAL EXAMINATION: VITAL SIGNS: Temperature is 96.8, pulse is 78, and blood pressure 159/91. HEENT: PERRLA. NECK: Supple. CHEST: Clear to auscultation. CARDIOVASCULAR: Regular rate and rhythm. ABDOMEN: He has a colostomy bag. He has ventral hernia. However, abdomen is soft. Positive bowel sounds. EXTREMITIES: No edema. Bedbound. SKIN: Integrity is fairly poor. Refer to the nursing notes. NEUROLOGIC: Oriented to name. LABORATORY DATA: WBC of 13.5, hemoglobin 12.6, and platelets of 320. Sodium 142, potassium 3.9, BUN of 37, creatinine of 3.1, glucose of 198. Lactic acid 2.4. Troponin of 0.221. Lipase of 597. ASSESSMENT: Elevated troponin. PLAN: I have asked Dr. Sams to see the patient for that reason and also Dr. Mauricio for the hypoxia. Dr. Hoyos is going to see the patient for acute renal failure and Dr. Bhagat is going to see the patient for rule out pneumonia as well as sepsis and Dr. Ochoa for the management of the diet and the patient also has a history of repair of megacolon. At this point, nutrition as per Dr. Ochoa. We will monitor the patient closely. The patient is on BiPAP. Rene Sin M.D. DR: REBEKAH JOB#: [id number] CC:
[2017-07-02] MEDS: dilTIAZem HCl 30mg tab ORAL SCH ×3 (05:53→21:48)
[2017-07-02 08:00] VITALS: BP 165/86
[2017-07-02] MEDS: Pantoprazole Inj IVP SCH (08:25)
[2017-07-02] MEDS: Heparin 5000 units/ml inj SUBQ SCH ×2 (08:27→21:53)
[2017-07-02] MEDS ORDERED: Donepezil 5mg Tab ORAL SCH (09:00)
--- NOTE | 2017-07-02 10:32 | Pulmonolgy Critical Care Note ---
Critical Care - Asmt/Plan Problems: (1) Hypertensive urgency (2) BiPAP (biphasic positive airway pressure) dependence (3) Acute hypoxemic respiratory failure (4) Oxygen desaturation (5) Bifascicular bundle branch block (6) HTN (hypertension) (7) CVA (cerebral infarction) (8) CRI (chronic renal insufficiency) (9) DM (diabetes mellitus) (10) GERD (gastroesophageal reflux disease) (11) diverting colostomy (12) Diverticulitis Respiratory: adjust FIO2 - to keep SaO2 > 90%, other - RTC and PRN HHN's, PRN BiPAP Cardiac: continue to monitor HR/BP Renal: F/U I&O, keep IV fluid, check electrolytes, other - F/U renal recs Infectious Disease: check cultures, continue antibiotics - zosyn per ID Gastrointestinal: other - 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 and advance diet Endocrine: monitor blood sugar, continue sliding scale insulin Hematologic: monitor H/H Prophylaxis: Protonix, Heparin Time Spent (Minutes): 40 Notes 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, 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, renal, GI Discussed with: nurses, consultants Critical Care - Objective Last 24 Hour Vital Signs Date Time Temp Pulse Resp B/P (MAP) Pulse Ox O2 Delivery O2 Flow Rate FiO2 07/02/17 09:13 78 18 99 07/02/17 08:24 17 99 Nasal Cannula 2.0 07/02/17 08:00 97.6 84 17 165/86 100 Bi-pap 30 97.6 07/02/17 08:00 30 07/02/17 07:46 76 16 99 Nasal Cannula 2.0 28 07/02/17 07:46 72 07/02/17 07:37 76 18 98 Facial 30 07/02/17 07:37 76 18 98 Bi-pap 30 07/02/17 05:53 79 161/89 07/02/17 05:17 78 16 99 Facial 30 07/02/17 04:00 97.3 79 17 161/89 100 Bi-pap 30 97.3 07/02/17 04:00 30 07/02/17 03:35 80 07/02/17 03:24 83 21 98 Facial 30 07/02/17 00:42 66 15 100 Bi-pap 07/02/17 00:34 69 16 100 Bi-pap 30 07/02/17 00:33 69 16 100 Facial 30 07/02/17 00:00 97.0 74 17 166/88 100 Bi-pap 30 97.0 07/01/17 23:30 72 18 100 Facial 30 07/01/17 23:25 73 07/01/17 21:27 89 188/93 07/01/17 21:03 87 15 100 Facial 30 07/01/17 20:00 30 07/01/17 20:00 97.6 89 22 188/93 100 Bi-pap 30 97.6 07/01/17 19:25 86 07/01/17 19:19 90 18 100 Bi-pap 07/01/17 19:17 88 18 100 Full Face 30 07/01/17 19:16 86 18 99 Bi-pap 07/01/17 17:15 78 16 100 Full Face 30 07/01/17 16:00 96.8 78 19 159/91 100 Bi-pap 30 96.8 07/01/17 16:00 30 07/01/17 16:00 75 07/01/17 15:14 75 15 100 Full Face 30 07/01/17 12:43 80 16 100 Full Face 40 07/01/17 12:00 40 07/01/17 12:00 97.7 90 19 160/94 100 Bi-pap 40 97.7 07/01/17 12:00 88 07/01/17 11:28 90 19 130/97 100 Room Air 07/01/17 10:32 91 22 100 Facial 40 Status: awake, other - confused Condition: improving HEENT: atraumatic, normocephalic Lungs: rhonchi Heart: HR/BP stable Abdomen: soft, non-tender, active bowel sounds, other - ostomy CDI Extremities: no C/C/E Micro: Microbiology Date/Time Source Procedure Growth Status 07/01/17 10:00 Nasal Nares Influenza Types A,B Antigen (NELA) - Final Complete Accucheck: 125 Blood Sugars: BS controlled Critical Care - Subjective ROS Limited/Unobtainable: Yes ICU Day: 2 Intubation Day: Off BiPAP, now on 2L Condition: improving IV Access: peripheral EKG Rhythm: Sinus Rhythm FI02: 30 Sputum Amount: None I&O: Intake and Output 07/01/17 07/02/17 19:00 07:00 Intake Total 1100 ml 710.0 ml Balance 1100 ml 710.0 ml Intake IV Total 100 ml 710.0 ml Other 1000 ml # Voids 33 1 Subjective: + SOB, + cough, no wheezing, no CP, no F/C, no NVDC, no abdominal pain or urinary complaints CXR: RLL inf Labs: Intake and Output 07/01/17 07/02/17 19:00 07:00 Intake Total 1100 ml 710.0 ml Balance 1100 ml 710.0 ml Intake IV Total 100 ml 710.0 ml Other 1000 ml # Voids 33 1 ASIF MOORE M.D. July 02, 2017 10:32
[2017-07-02] MEDS: Piperacillin/Tazobactam 3.375 GM in D5W 110 ML IVPB SCH ×2 (11:05→21:47)
--- NOTE | 2017-07-02 11:21 | GI Progress Note ---
Assessment/Plan Problems: (1) Abdominal pain ICD Codes: R10.9 - Unspecified abdominal pain SNOMED: 79413789 (2) diverting colostomy (3) CVA (cerebral infarction) ICD Codes: I63.9 - CVA (cerebral infarction) SNOMED: 254650418 (4) GERD (gastroesophageal reflux disease) ICD Codes: K21.9 - GERD (gastroesophageal reflux disease) SNOMED: 818495407 (5) HTN (hypertension) ICD Codes: I10 - HTN (hypertension) SNOMED: 34907701 (6) Anemia ICD Codes: D64.9 - Anemia SNOMED: 655864708 Status: progressing Status Narrative Discussed with Dr. Ochoa. Assessment/Plan elevated lipase >> now normal fu ST evaluation >> adv diet per intelligence consultant prn transfusions OB stool r/o GI bleed ppi colostomy care abx per ID trend lipase fu labs, iron panel The patient was seen and examined at bedside and all new and available data was reviewed in the patients chart. I agree with the above findings, impression and plan. (Patient seen earlier today. Signature stamp does not reflect patient encounter time.). - Abner Ochoa MD Subjective Subjective limited Objective Last 24 Hour Vital Signs Date Time Temp Pulse Resp B/P (MAP) Pulse Ox O2 Delivery O2 Flow Rate FiO2 07/02/17 09:13 78 18 99 07/02/17 08:24 17 99 Nasal Cannula 2.0 07/02/17 08:00 97.6 84 17 165/86 100 Bi-pap 30 97.6 07/02/17 08:00 30 07/02/17 07:46 76 16 99 Nasal Cannula 2.0 28 07/02/17 07:46 72 07/02/17 07:37 76 18 98 Facial 30 07/02/17 07:37 76 18 98 Bi-pap 30 07/02/17 05:53 79 161/89 07/02/17 05:17 78 16 99 Facial 30 07/02/17 04:00 97.3 79 17 161/89 100 Bi-pap 30 97.3 07/02/17 04:00 30 07/02/17 03:35 80 07/02/17 03:24 83 21 98 Facial 30 07/02/17 00:42 66 15 100 Bi-pap 07/02/17 00:34 69 16 100 Bi-pap 30 07/02/17 00:33 69 16 100 Facial 30 07/02/17 00:00 97.0 74 17 166/88 100 Bi-pap 30 97.0 07/01/17 23:30 72 18 100 Facial 30 07/01/17 23:25 73 07/01/17 21:27 89 188/93 07/01/17 21:03 87 15 100 Facial 30 07/01/17 20:00 30 07/01/17 20:00 97.6 89 22 188/93 100 Bi-pap 30 97.6 07/01/17 19:25 86 07/01/17 19:19 90 18 100 Bi-pap 07/01/17 19:17 88 18 100 Full Face 30 07/01/17 19:16 86 18 99 Bi-pap 07/01/17 17:15 78 16 100 Full Face 30 07/01/17 16:00 96.8 78 19 159/91 100 Bi-pap 30 96.8 07/01/17 16:00 30 07/01/17 16:00 75 07/01/17 15:14 75 15 100 Full Face 30 07/01/17 12:43 80 16 100 Full Face 40 07/01/17 12:00 40 07/01/17 12:00 97.7 90 19 160/94 100 Bi-pap 40 97.7 07/01/17 12:00 88 07/01/17 11:28 90 19 130/97 100 Room Air Intake and Output 07/01/17 07/02/17 19:00 07:00 Intake Total 1100 ml 710.0 ml Balance 1100 ml 710.0 ml Intake IV Total 100 ml 710.0 ml Other 1000 ml # Voids 33 1 Laboratory Tests Test 07/01/17 19:10 07/02/17 03:40 Troponin I 0.221 ng/mL (0.000-0.056) White Blood Count 9.0 K/UL (4.8-10.8) Red Blood Count 4.58 M/UL (4.70-6.10) L Hemoglobin 12.2 G/DL (14.2-18.0) L Hematocrit 39.3 % (42.0-52.0) L Mean Corpuscular Volume 86 FL (80-99) Mean Corpuscular Hemoglobin 26.6 PG (27.0-31.0) L Mean Corpuscular Hemoglobin Concent 31.0 G/DL (32.0-36.0) L Red Cell Distribution Width 15.4 % (11.6-14.8) H Platelet Count 267 K/UL (150-450) Mean Platelet Volume 6.9 FL (6.5-10.1) Neutrophils (%) (Auto) 72.9 % (45.0-75.0) Lymphocytes (%) (Auto) 15.7 % (20.0-45.0) L Monocytes (%) (Auto) 7.3 % (1.0-10.0) Eosinophils (%) (Auto) 3.0 % (0.0-3.0) Basophils (%) (Auto) 1.1 % (0.0-2.0) Sodium Level 143 MMOL/L (136-145) Potassium Level 4.0 MMOL/L (3.5-5.1) Chloride Level 109 MMOL/L (98-107) H Carbon Dioxide Level 25 MMOL/L (21-32) Anion Gap 9 mmol/L (5-15) Blood Urea Nitrogen 32 mg/dL (7-18) H Creatinine 1.9 MG/DL (0.55-1.30) H Estimat Glomerular Filtration Rate mL/min (>60) Glucose Level 61 MG/DL (74-106) #L Calcium Level 8.9 MG/DL (8.5-10.1) Phosphorus Level 3.5 MG/DL (2.5-4.9) Magnesium Level 2.2 MG/DL (1.8-2.4) Triglycerides Level 84 MG/DL (30-150) Cholesterol Level 148 MG/DL (< 200) LDL Cholesterol 89 mg/dL (<100) HDL Cholesterol 55 MG/DL (40-60) Cholesterol/HDL Ratio 2.7 (3.3-4.4) L Lipase 119 U/L (73-393) Height (Feet): 5 Height (Inches): 7.00 Weight (Pounds): 180 General Appearance: WD/WN, no apparent distress, alert Cardiovascular: normal rate Respiratory/Chest: normal breath sounds, no respiratory distress Abdominal Exam: normal bowel sounds, non tender, soft, other - colostomy Extremities: normal range of motion, non-tender Meredith Avilez MARINE FITTER July 02, 2017 11:21
[2017-07-02 12:05] VITALS: BP 157/106
--- NOTE | 2017-07-02 12:39 | Infectious Diseases Prog Note ---
Assessment/Plan Assessment/Plan A: Sepsis improving Pneumonia Bacteremia Respiratory failure Renal failure Dementia P; Continue Zosyn, add IV Vancomycin will f/u cultures Subjective ROS Limited/Unobtainable: Yes Constitutional: Reports: no symptoms Respiratory: Reports: no symptoms Gastrointestinal/Abdominal: Reports: no symptoms Genitourinary: Reports: no symptoms Allergies: Coded Allergies: No Known Allergies (Verified , 12/29/06) Objective Vital Signs Last 24 Hour Vital Signs Date Time Temp Pulse Resp B/P (MAP) Pulse Ox O2 Delivery O2 Flow Rate FiO2 07/02/17 12:05 98.2 82 21 157/106 94 Nasal Cannula 2.0 98.2 07/02/17 11:24 76 18 98 07/02/17 09:13 78 18 99 07/02/17 08:24 17 99 Nasal Cannula 2.0 07/02/17 08:00 97.6 84 17 165/86 100 Bi-pap 30 97.6 07/02/17 08:00 30 07/02/17 07:46 76 16 99 Nasal Cannula 2.0 28 07/02/17 07:46 72 07/02/17 07:37 76 18 98 Facial 30 07/02/17 07:37 76 18 98 Bi-pap 30 07/02/17 05:53 79 161/89 07/02/17 05:17 78 16 99 Facial 30 07/02/17 04:00 97.3 79 17 161/89 100 Bi-pap 30 97.3 07/02/17 04:00 30 07/02/17 03:35 80 07/02/17 03:24 83 21 98 Facial 30 07/02/17 00:42 66 15 100 Bi-pap 07/02/17 00:34 69 16 100 Bi-pap 30 07/02/17 00:33 69 16 100 Facial 30 07/02/17 00:00 97.0 74 17 166/88 100 Bi-pap 30 97.0 07/01/17 23:30 72 18 100 Facial 30 07/01/17 23:25 73 07/01/17 21:27 89 188/93 07/01/17 21:03 87 15 100 Facial 30 07/01/17 20:00 30 07/01/17 20:00 97.6 89 22 188/93 100 Bi-pap 30 97.6 07/01/17 19:25 86 07/01/17 19:19 90 18 100 Bi-pap 07/01/17 19:17 88 18 100 Full Face 30 07/01/17 19:16 86 18 99 Bi-pap 07/01/17 17:15 78 16 100 Full Face 30 07/01/17 16:00 96.8 78 19 159/91 100 Bi-pap 30 96.8 07/01/17 16:00 30 07/01/17 16:00 75 07/01/17 15:14 75 15 100 Full Face 30 07/01/17 12:43 80 16 100 Full Face 40 Height (Feet): 5 Height (Inches): 7.00 Weight (Pounds): 180 General Appearance: no acute distress HEENT: mucous membranes moist, other - no teeth Respiratory/Chest: lungs clear, other - off BIPAP, O2 by cannula Cardiovascular: normal rate Abdomen: soft, non tender Extremities: no edema Neurologic/Psychiatric: alert, responsive Microbiology Date/Time Source Procedure Growth Status 07/01/17 08:23 Blood Blood Culture - Preliminary Resulted 07/01/17 10:00 Nasal Nares Influenza Types A,B Antigen (NELA) - Final Complete Laboratory Tests Test 07/01/17 19:10 07/02/17 03:40 Troponin I 0.221 ng/mL (0.000-0.056) White Blood Count 9.0 K/UL (4.8-10.8) Red Blood Count 4.58 M/UL (4.70-6.10) L Hemoglobin 12.2 G/DL (14.2-18.0) L Hematocrit 39.3 % (42.0-52.0) L Mean Corpuscular Volume 86 FL (80-99) Mean Corpuscular Hemoglobin 26.6 PG (27.0-31.0) L Mean Corpuscular Hemoglobin Concent 31.0 G/DL (32.0-36.0) L Red Cell Distribution Width 15.4 % (11.6-14.8) H Platelet Count 267 K/UL (150-450) Mean Platelet Volume 6.9 FL (6.5-10.1) Neutrophils (%) (Auto) 72.9 % (45.0-75.0) Lymphocytes (%) (Auto) 15.7 % (20.0-45.0) L Monocytes (%) (Auto) 7.3 % (1.0-10.0) Eosinophils (%) (Auto) 3.0 % (0.0-3.0) Basophils (%) (Auto) 1.1 % (0.0-2.0) Sodium Level 143 MMOL/L (136-145) Potassium Level 4.0 MMOL/L (3.5-5.1) Chloride Level 109 MMOL/L (98-107) H Carbon Dioxide Level 25 MMOL/L (21-32) Anion Gap 9 mmol/L (5-15) Blood Urea Nitrogen 32 mg/dL (7-18) H Creatinine 1.9 MG/DL (0.55-1.30) H Estimat Glomerular Filtration Rate mL/min (>60) Glucose Level 61 MG/DL (74-106) #L Calcium Level 8.9 MG/DL (8.5-10.1) Phosphorus Level 3.5 MG/DL (2.5-4.9) Magnesium Level 2.2 MG/DL (1.8-2.4) Triglycerides Level 84 MG/DL (30-150) Cholesterol Level 148 MG/DL (< 200) LDL Cholesterol 89 mg/dL (<100) HDL Cholesterol 55 MG/DL (40-60) Cholesterol/HDL Ratio 2.7 (3.3-4.4) L Lipase 119 U/L (73-393) Current Medications Medications (Trade) Dose Ordered Sig/Jared Route PRN Reason Start Time Stop Time Status Last Admin Dose Admin Acetaminophen (Tylenol) 500 mg Q6HR PRN ORAL moderate pain (4-6) 07/01/17 12:00 07/31/17 11:59 Acetaminophen (Tylenol) 650 mg Q4H PRN ORAL Mild Pain/Temp > 100.5 07/01/17 12:00 07/31/17 11:59 07/01/17 21:28 Acetaminophen (Tylenol) 1,000 mg Q6HR PRN ORAL Severe Pain (Pain Scale 7-10) 07/01/17 12:00 07/31/17 11:59 Albuterol/ Ipratropium (Albuterol/ Ipratropium) 3 ml Q4H PRN HHN Shortness of Breath 07/01/17 18:15 07/06/17 18:14 Albuterol/ Ipratropium (Albuterol/ Ipratropium) 3 ml Q6HRT HHN 07/01/17 19:00 07/06/17 18:59 07/02/17 08:06 Dextrose (Dextrose 50%) 25 ml STAT PRN IV Hypoglycemia 07/01/17 11:45 07/31/17 11:44 Dextrose (Dextrose 50%) 50 ml STAT PRN IV Hypoglycemia 07/01/17 11:45 07/31/17 11:44 Diltiazem HCl (Cardizem) 30 mg Q8HR ORAL 07/01/17 14:00 07/31/17 13:59 07/02/17 05:53 Donepezil HCl (Aricept) 5 mg DAILY ORAL 07/02/17 09:00 08/01/17 08:59 07/02/17 08:25 Heparin Sodium (Porcine) (Heparin 5000 units/ml) 5,000 units EVERY 12 HOURS SUBQ 07/01/17 21:00 07/31/17 20:59 07/02/17 08:27 Multivitamins (Multivitamins) 1 tab DAILY ORAL 07/02/17 09:00 08/01/17 08:59 07/02/17 08:25 Pantoprazole (Protonix) 40 mg DAILY IVP 07/02/17 09:00 08/01/17 08:59 07/02/17 08:25 Piperacillin Sod/ Tazobactam Sod 3.375 gm/Dextrose 110 ml @ 27.5 mls/hr EVERY 12 HOURS IVPB 07/01/17 21:00 07/06/17 20:59 07/02/17 11:05 Potassium Chloride 10 meq/ Dextrose/Sodium Chloride 1,005 ml @ 50 mls/hr Q20H6M IV 07/01/17 15:00 07/31/17 14:59 07/01/17 16:13 Potassium Chloride (K-Dur) 20 meq DAILY ORAL 07/02/17 09:00 08/01/17 08:59 07/02/17 08:25 HORTENSIA MALHOTRA July 02, 2017 12:39
[2017-07-02] MEDS ORDERED: Vancomycin 1250mg/D5W 250ml IVPB SCH ×2 (13:30→14:00)
[2017-07-02] MEDS: Potassium Chloride 10 MEQ in D5 1/2NS 1,000 ML IV SCH (13:55)
[2017-07-02] MEDS: D5 1/2NS w/KCL 10meq 1,000 ML IV SCH (14:02)
--- NOTE | 2017-07-02 15:31 | Consultation ---
Consult Note Consult Note asked to eval for renal failure Patient is an 81-year-old male brought in by EMS after increased difficulty breathing and desaturation. Patient was started on supplemental oxygen. Patient noted to have rhonchi by EMS. The patient had reportedly been drinking some fluid and subsequently a possibly aspirated. Patient had a history of CVA. Hx Cardiac Problems: Yes Hx Hypertension: Yes Hx Gastrointestinal Problems: Yes - colostomy Hx Neurological Problems: Yes - dementia Hx Cerebrovascular Accident: Yes not historian- examined- data reviewed admitted for respiratory distress and low Oxygenation . Assessment/Plan - Hypertensive urgency - DM and Nephropathy - CRI (chronic renal insufficiency) Cr 2.1....1.9 - BiPAP (biphasic positive airway pressure) dependence - Acute hypoxemic respiratory failure - Oxygen desaturation - Bifascicular bundle branch block - HTN (hypertension) - CVA (cerebral infarction) - GERD (gastroesophageal reflux disease) - diverting colostomy - Diverticulitis Plan: Antibiotics- monitor renal parameters- adjust bp meds- pulmonary support 2D Echo Avoid nephrotoxics per orders JAVAN RODRIGUEZ July 02, 2017 15:31
[2017-07-02 16:59] VITALS: BP 163/99
[2017-07-02] MEDS: HydrALAZINE 25mg tab ORAL SCH ×2 (17:06→23:58)
--- NOTE | 2017-07-02 18:14 | Cardiology Report ---
APPROVED REPORT EKG Measurement Heart [id number] Normal sinus rhythm Right bundle branch block Left anterior fascicular block Bifascicular block Septal infarct, age undetermined Abnormal ECG
--- NOTE | 2017-07-02 18:16 | Cardiology Report ---
APPROVED REPORT EKG Measurement Heart [id number] Sinus tachycardia Right bundle branch block Left anterior fascicular block Bifascicular block Septal infarct, age undetermined Abnormal ECG
--- NOTE | 2017-07-02 18:18 | Cardiology Report ---
APPROVED REPORT EKG Measurement Heart [id number] [id number] Sinus tachycardia with frequent premature ventricular complexes Right bundle branch block Left anterior fascicular block Bifascicular block Left ventricular hypertrophy with repolarization abnormality Abnormal ECG
[2017-07-02 20:00] VITALS: BP 153/90
--- NOTE | 2017-07-02 21:39 | General Progress Note ---
Assessment/Plan Problem List: (1) HTN (hypertension) ICD Codes: I10 - HTN (hypertension) SNOMED: 19707866 (2) Sinus tachycardia ICD Codes: R00.0 - Tachycardia, unspecified SNOMED: 99034909 (3) Oxygen desaturation ICD Codes: R09.02 - Hypoxemia SNOMED: 267365912 (4) Bifascicular bundle branch block ICD Codes: I45.2 - Bifascicular block SNOMED: 94358541 (5) DM (diabetes mellitus) ICD Codes: E11.9 - DM (diabetes mellitus) SNOMED: 36116697 (6) BiPAP (biphasic positive airway pressure) dependence ICD Codes: Z99.89 - Dependence on other enabling machines and devices SNOMED: 395477478 (7) diverting colostomy (8) Sepsis ICD Codes: A41.9 - Sepsis, unspecified organism SNOMED: 66032581 (9) Oxygen desaturation ICD Codes: R09.02 - Hypoxemia SNOMED: 783170376 Status: progressing Assessment/Plan afebrile vitals stable colostomy hypoxia improving off bipap ordered st for diet h/o peg h/o megacolon reviewed chart and labs Subjective ROS Limited/Unobtainable: Yes Allergies: Coded Allergies: No Known Allergies (Verified , 12/29/06) Objective Last 24 Hour Vital Signs Date Time Temp Pulse Resp B/P (MAP) Pulse Ox O2 Delivery O2 Flow Rate FiO2 07/02/17 20:30 74 18 100 Nasal Cannula 2.0 28 07/02/17 20:24 Nasal Cannula 2.0 28 07/02/17 20:24 98 Nasal Cannula 2.0 28 07/02/17 20:20 68 18 98 Nasal Cannula 2.0 28 07/02/17 20:00 78 07/02/17 20:00 97.0 80 22 153/90 100 Nasal Cannula 2.0 97.0 07/02/17 17:06 163/99 07/02/17 16:59 98.6 80 24 163/99 99 Nasal Cannula 2.0 98.6 07/02/17 16:50 74 18 99 07/02/17 15:50 75 18 99 07/02/17 15:29 73 07/02/17 14:16 64 157/106 07/02/17 12:54 64 18 99 Nasal Cannula 2.0 28 07/02/17 12:46 76 18 98 Nasal Cannula 2.0 28 07/02/17 12:45 76 18 98 07/02/17 12:05 98.2 82 21 157/106 94 Nasal Cannula 2.0 98.2 07/02/17 11:52 61 07/02/17 11:24 76 18 98 07/02/17 09:13 78 18 99 07/02/17 08:24 17 99 Nasal Cannula 2.0 07/02/17 08:00 97.6 84 17 165/86 100 Bi-pap 30 97.6 07/02/17 08:00 30 07/02/17 07:46 76 16 99 Nasal Cannula 2.0 28 07/02/17 07:46 72 07/02/17 07:37 76 18 98 Facial 30 07/02/17 07:37 76 18 98 Bi-pap 30 07/02/17 05:53 79 161/89 07/02/17 05:17 78 16 99 Facial 30 07/02/17 04:00 97.3 79 17 161/89 100 Bi-pap 30 97.3 07/02/17 04:00 30 07/02/17 03:35 80 07/02/17 03:24 83 21 98 Facial 30 07/02/17 00:42 66 15 100 Bi-pap 07/02/17 00:34 69 16 100 Bi-pap 30 07/02/17 00:33 69 16 100 Facial 30 07/02/17 00:00 97.0 74 17 166/88 100 Bi-pap 30 97.0 07/01/17 23:30 72 18 100 Facial 30 07/01/17 23:25 73 Intake and Output 07/01/17 07/02/17 19:00 07:00 Intake Total 1100 ml 710.0 ml Balance 1100 ml 710.0 ml Intake IV Total 100 ml 710.0 ml Other 1000 ml # Voids 33 1 Laboratory Tests 07/02/17 03:40: White Blood Count 9.0, Red Blood Count 4.58L, Hemoglobin 12.2L, Hematocrit 39.3L , Mean Corpuscular Volume 86, Mean Corpuscular Hemoglobin 26.6L, Mean Corpuscular Hemoglobin Concent 31.0L, Red Cell Distribution Width 15.4H, Platelet Count 267, Mean Platelet Volume 6.9, Neutrophils (%) (Auto) 72.9, Lymphocytes (%) (Auto) 15.7L, Monocytes (%) (Auto) 7.3, Eosinophils (%) (Auto) 3.0, Basophils (%) (Auto) 1.1, Sodium Level 143, Potassium Level 4.0, Chloride Level 109H, Carbon Dioxide Level 25, Anion Gap 9, Blood Urea Nitrogen 32H, Creatinine 1.9H, Estimat Glomerular Filtration Rate , Glucose Level 61#L, Calcium Level 8.9, Phosphorus Level 3.5, Magnesium Level 2.2, Triglycerides Level 84, Cholesterol Level 148, LDL Cholesterol 89, HDL Cholesterol 55, Cholesterol/HDL Ratio 2.7L, Lipase 119 Height (Feet): 5 Height (Inches): 7.00 Weight (Pounds): 180 Cardiovascular: normal rate Respiratory/Chest: lungs clear Rene Sin MD July 02, 2017 21:39
[2017-07-03] VITALS (10 sets, daily range): BP systolic 116–170; BP diastolic 67–92
[2017-07-03] MEDS: Albuterol/Ipratropium 3ml neb HHN SCH ×4 (01:45→19:00)
[2017-07-03 04:50] LABS: BASOPHILS % (AUTO) 1.2 % (0.0-2.0); EOSINOPHILS % (AUTO) 2.6 % (0.0-3.0); HEMATOCRIT 35.1 % (42.0-52.0); HEMOGLOBIN 10.8 G/DL (14.2-18.0); MEAN CORPUSCULAR VOLUME 87 FL (80-99); MONOCYTES % (AUTO) 7.8 % (1.0-10.0); NEUTROPHILS % (AUTO) 73.4 % (45.0-75.0); PLATELET COUNT 252 K/UL (150-450); RED BLOOD COUNT 4.03 M/UL (4.70-6.10); RED CELL DISTRIBUTION WIDTH 15.1 % (11.6-14.8); WHITE BLOOD COUNT 8.9 K/UL (4.8-10.8)
[2017-07-03 05:20] LABS: CREATINE KINASE 41 U/L (26-308); GAMMA GLUTAMYL TRANSPEPTIDASE 10 U/L (5-85); PHOSPHORUS 3.5 MG/DL (2.5-4.9)
[2017-07-03 05:29] LABS: ALANINE AMINOTRANSFERASE 18 U/L (12-78); ALBUMIN 2.6 G/DL (3.4-5.0); ALBUMIN/GLOBULIN RATIO 0.6 (1.0-2.7); ALKALINE PHOSPHATASE 85 U/L (46-116); ANION GAP 14 mmol/L (5-15); ASPARTATE AMINO TRANSFERASE 10 U/L (15-37); BILIRUBIN,TOTAL 0.4 MG/DL (0.2-1.0); BLOOD UREA NITROGEN 26 mg/dL (7-18); CALCIUM 8.6 MG/DL (8.5-10.1); CARBON DIOXIDE 23 MMOL/L (21-32); CHLORIDE 104 MMOL/L (98-107); CHOLESTEROL 152 MG/DL (< 200); HDL CHOLESTEROL 45 MG/DL (40-60); POTASSIUM 4.3 MMOL/L (3.5-5.1); SODIUM 141 MMOL/L (136-145); TRIGLYCERIDES 130 MG/DL (30-150)
[2017-07-03 06:03] LABS: % IRON SATURATION 16 % (15-50); IRON 37 ug/dL (50-175); TOTAL IRON BINDING CAPACITY 237 ug/dL (250-450)
[2017-07-03] MEDS: dilTIAZem HCl 30mg tab ORAL SCH ×3 (06:11→21:18)
[2017-07-03] MEDS: HydrALAZINE 25mg tab ORAL SCH ×3 (06:11→17:19)
[2017-07-03 06:25] LABS: FERRITIN 70 NG/ML (8-388)
[2017-07-03] MEDS ORDERED: Vancomycin 1gm/D5W 275ml IVPB ONE ×2 (08:00)
--- NOTE | 2017-07-03 08:46 | Pulmonology Progress Note ---
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 -Monitor volumes and renal function, mIVF per renal -F/U cards recs -DVT Px: Hep SQ -FC Subjective Allergies: Coded Allergies: No Known Allergies (Verified , 12/29/06) Subjective AFVSS, O2 needs stable No cough, no SOB, no F/C VSS noted, will likely need a PEG Objective Last 24 Hour Vital Signs Date Time Temp Pulse Resp B/P (MAP) Pulse Ox O2 Delivery O2 Flow Rate FiO2 07/03/17 07:39 80 18 100 Nasal Cannula 2.0 28 07/03/17 07:30 85 18 98 Nasal Cannula 2.0 28 07/03/17 07:30 Nasal Cannula 2.0 28 07/03/17 07:30 98 Nasal Cannula 2.0 28 07/03/17 06:11 128/88 07/03/17 06:11 94 128/88 07/03/17 04:00 97.7 98 22 128/88 96 Nasal Cannula 2.0 97.7 07/03/17 04:00 94 07/03/17 01:49 75 18 100 Nasal Cannula 2.0 28 07/03/17 01:46 80 18 100 Nasal Cannula 2.0 28 07/03/17 00:00 97.0 91 21 116/67 100 Nasal Cannula 2.0 97.0 07/03/17 00:00 88 07/02/17 23:58 116/67 07/02/17 21:48 74 153/90 07/02/17 20:30 74 18 100 Nasal Cannula 2.0 28 07/02/17 20:24 Nasal Cannula 2.0 28 07/02/17 20:24 98 Nasal Cannula 2.0 28 07/02/17 20:20 68 18 98 Nasal Cannula 2.0 28 07/02/17 20:00 78 07/02/17 20:00 97.0 80 22 153/90 100 Nasal Cannula 2.0 97.0 07/02/17 17:06 163/99 07/02/17 16:59 98.6 80 24 163/99 99 Nasal Cannula 2.0 98.6 07/02/17 16:50 74 18 99 07/02/17 15:50 75 18 99 07/02/17 15:29 73 07/02/17 14:16 64 157/106 07/02/17 12:54 64 18 99 Nasal Cannula 2.0 28 07/02/17 12:46 76 18 98 Nasal Cannula 2.0 28 07/02/17 12:45 76 18 98 07/02/17 12:05 98.2 82 21 157/106 94 Nasal Cannula 2.0 98.2 07/02/17 11:52 61 07/02/17 11:24 76 18 98 07/02/17 09:13 78 18 99 Intake and Output 07/02/17 07/03/17 19:00 07:00 Intake Total 771.70 ml Output Total 460 ml Balance 311.70 ml Intake IV Total 771.70 ml Output Urine Total 400 ml Stool Total 60 ml # Voids 2 2 General Appearance: no acute distress, cachetic HEENT: normocephalic, atraumatic Respiratory/Chest: chest wall non-tender, lungs clear, normal breath sounds, no respiratory distress Cardiovascular: normal peripheral pulses, normal rate, regular rhythm Abdomen: normal bowel sounds, soft, non tender, no organomegaly, non distended , other - colostomy Extremities: no cyanosis, no clubbing, no edema Microbiology Date/Time Source Procedure Growth Status 07/01/17 08:23 Blood Blood Culture - Preliminary Staphylococcus Sp Coag Neg Resulted 07/01/17 08:05 Blood Blood Culture - Preliminary Staphylococcus Sp Coag Neg Resulted 07/01/17 10:00 Nasal Nares Influenza Types A,B Antigen (NELA) - Final Complete 07/01/17 08:23 Rectum VRE Culture - Final NO VANCOMYCIN RESISTANT ENTEROCOCCUS ... Complete Laboratory Tests 07/03/17 04:00: White Blood Count 8.9, Red Blood Count 4.03L, Hemoglobin 10.8L, Hematocrit 35.1L , Mean Corpuscular Volume 87, Mean Corpuscular Hemoglobin 26.8L, Mean Corpuscular Hemoglobin Concent 30.8L, Red Cell Distribution Width 15.1H, Platelet Count 252, Mean Platelet Volume 7.4, Neutrophils (%) (Auto) 73.4, Lymphocytes (%) (Auto) 15.0L, Monocytes (%) (Auto) 7.8, Eosinophils (%) (Auto) 2.6, Basophils (%) (Auto) 1.2, Reticulocyte Count [Pending], Prothrombin Time 10.7, Prothromb Time International Ratio 1.0, Activated Partial Thromboplast Time 34H, Sodium Level 141, Potassium Level 4.3, Chloride Level 104, Carbon Dioxide Level 23, Anion Gap 14, Blood Urea Nitrogen 26H, Creatinine 2.0H, Estimat Glomerular Filtration Rate , Glucose Level 290#H, Hemoglobin A1c 7.5H, Lactic Acid Level 3.20H, Uric Acid 4.4, Calcium Level 8.6, Phosphorus Level 3.5 , Magnesium Level 1.8, Iron Level 37L, Total Iron Binding Capacity 237L, Percent Iron Saturation 16, Unsaturated Iron Binding 200, Ferritin 70, Total Bilirubin 0.4, Gamma Glutamyl Transpeptidase 10, Aspartate Amino Transf (AST/ SGOT) 10L, Alanine Aminotransferase (ALT/SGPT) 18, Alkaline Phosphatase 85, Total Creatine Kinase 41, Troponin I 0.035, C-Reactive Protein, Quantitative 10.9H, Pro-B-Type Natriuretic Peptide 2981H, Total Protein 6.9, Albumin 2.6L, Globulin 4.3, Albumin/Globulin Ratio 0.6L, Triglycerides Level 130, Cholesterol Level 152, LDL Cholesterol 89, HDL Cholesterol 45, Cholesterol/HDL Ratio 3.4, Vitamin B12 Level 1134H, Folate 18.9, Thyroid Stimulating Hormone (TSH) 1.409, Free Thyroxine 0.99, Random Vancomycin Level 13.8 07/03/17 05:00: Stool Occult Blood [Pending] Current Medications Medications (Trade) Dose Ordered Sig/Jared Route PRN Reason Start Time Stop Time Status Last Admin Dose Admin Acetaminophen (Tylenol) 500 mg Q6HR PRN ORAL moderate pain (4-6) 07/01/17 12:00 07/31/17 11:59 Acetaminophen (Tylenol) 650 mg Q4H PRN ORAL Mild Pain/Temp > 100.5 07/01/17 12:00 07/31/17 11:59 07/01/17 21:28 Albuterol/ Ipratropium (Albuterol/ Ipratropium) 3 ml Q4H PRN HHN Shortness of Breath 07/01/17 18:15 07/06/17 18:14 Albuterol/ Ipratropium (Albuterol/ Ipratropium) 3 ml Q6HRT HHN 07/01/17 19:00 07/06/17 18:59 07/03/17 07:32 Dextrose (Dextrose 50%) 25 ml STAT PRN IV Hypoglycemia 07/01/17 11:45 07/31/17 11:44 Dextrose (Dextrose 50%) 50 ml STAT PRN IV Hypoglycemia 07/01/17 11:45 07/31/17 11:44 Dextrose/ Electrolytes 1,000 ml @ 50 mls/hr Q20H IV 07/02/17 13:30 07/31/17 14:59 07/02/17 14:02 Diltiazem HCl (Cardizem) 30 mg Q8HR ORAL 07/01/17 14:00 07/31/17 13:59 07/03/17 06:11 Heparin Sodium (Porcine) (Heparin 5000 units/ml) 5,000 units EVERY 12 HOURS SUBQ 07/01/17 21:00 07/31/17 20:59 07/02/17 21:53 Hydralazine HCl (Apresoline) 25 mg Q6HR ORAL 07/02/17 18:00 08/01/17 17:59 07/03/17 06:11 Multivitamins (Multivitamins) 1 tab DAILY ORAL 07/02/17 09:00 08/01/17 08:59 07/02/17 08:25 Pantoprazole (Protonix) 40 mg DAILY IVP 07/02/17 09:00 08/01/17 08:59 07/02/17 08:25 Piperacillin Sod/ Tazobactam Sod 3.375 gm/Dextrose 110 ml @ 27.5 mls/hr EVERY 12 HOURS IVPB 07/01/17 21:00 07/06/17 20:59 07/02/17 21:47 Vancomycin HCl (Vanco rx to dose) 1 ea DAILY PRN MISC Per rx protocol 07/02/17 12:45 08/01/17 12:44 Vancomycin HCl 1 gm/Dextrose 275 ml @ 183.708 mls/hr NOW ONCE IVPB 07/03/17 08:00 07/03/17 09:29 Vancomycin HCl/ Dextrose 250 ml @ 166.667 mls/hr ONCE IVPB 07/02/17 13:30 07/07/17 13:29 07/02/17 14:16 ASIF MOORE M.D. July 03, 2017 08:46
[2017-07-03] MEDS: Pantoprazole Inj IVP SCH (08:48)
[2017-07-03] MEDS: Heparin 5000 units/ml inj SUBQ SCH ×3 (08:54→21:20)
[2017-07-03] MEDS: D5 1/2NS w/KCL 10meq 1,000 ML IV SCH (09:30)
--- NOTE | 2017-07-03 10:30 | Pre-Procedure Note/Attestation ---
Pre-Procedure Note/Attestation Complete Prior to Procedure Planned Procedure: not applicable Procedure Narrative: egd/peg Indications for Procedure Pre-Operative Diagnosis: dysphagia Attestation I attest that I discussed the nature of the procedure; its benefits; risks and complications; and alternatives (and the risks and benefits of such alternatives ), prior to the procedure, with the patient (or the patient's legal client relations representative). I attest that, if there was a reasonable possibility of needing a blood transfusion, the patient (or the patient's legal client relations representative) was given the [facility] standardized written summary, pursuant to the [employer] Blood Safety Act ([place] Health and Safety Code # 1645, as amended). I attest that I re-evaluated the patient just prior to the surgery and that there has been no change in the patient's H&P, except as documented below: Abner Ochoa MD July 03, 2017 10:30
[2017-07-03] MEDS ORDERED: NS 500ML IVPB ONE (10:42)
--- NOTE | 2017-07-03 10:54 | Endoscopy Procedure Note ---
Endoscopy Procedure Note General Indication for Procedure: dyspahgai Procedures Performed: EGD, PEG Operative Findings/Diagnosis: same Specimen: none Pt Tolerated Procedure Well: Yes Estimated Blood Loss: none Anesthesia Anesthesiologist: leah Anesthesia: MAC Inserted Devices Implant(s) used?: No GI Core Measures 50 yrs or older w/o bx or poly: Not Applicable 10yrs. F/U not recommended: Not Applicable Abner Ochoa MD July 03, 2017 10:54
[2017-07-03] MEDS ORDERED: LR 1000ml ONE (11:00)
--- NOTE | 2017-07-03 11:02 | Immediate Post-Op Evaluation ---
Immediate Post-Op Evalulation Immediate Post-Op Evalulation Procedure: peg Date of Evaluation: July 03, 2017 Nausea: No Vomiting: No Becka Stephen MD July 03, 2017 11:02
--- NOTE | 2017-07-03 11:15 | Anethesia Preoperative Eval ---
Anesthesia Pre-op PMH/ROS General Date of Evaluation: July 03, 2017 Time of Evaluation: 10:00 ASA Score: ASA 2 Mallampati Score Class I : Soft palate, uvula, fauces, pillars visible Class II: Soft palate, uvula, fauces visible Class III: Soft palate, base of uvula visible Class IV: Only hard plate visible Mallampati Classification: Class II Allergies: Coded Allergies: No Known Allergies (Verified , 12/29/06) Anesthesia Pre-op Phys. Exam Physician Exam Last Vital Signs Date Time Temp Pulse Resp B/P (MAP) Pulse Ox O2 Delivery O2 Flow Rate FiO2 07/03/17 08:00 88 07/03/17 08:00 98.2 18 144/70 98 Nasal Cannula 2.0 98.2 07/03/17 07:39 28 Airway Exam Mallampati Score: Class II Anesthesia Pre-op A/P Labs Hematology Test 07/03/17 04:00 White Blood Count 8.9 K/UL (4.8-10.8) Red Blood Count 4.03 M/UL (4.70-6.10) L Hemoglobin 10.8 G/DL (14.2-18.0) L Hematocrit 35.1 % (42.0-52.0) L Mean Corpuscular Volume 87 FL (80-99) Mean Corpuscular Hemoglobin 26.8 PG (27.0-31.0) L Mean Corpuscular Hemoglobin Concent 30.8 G/DL (32.0-36.0) L Red Cell Distribution Width 15.1 % (11.6-14.8) H Platelet Count 252 K/UL (150-450) Mean Platelet Volume 7.4 FL (6.5-10.1) Neutrophils (%) (Auto) 73.4 % (45.0-75.0) Lymphocytes (%) (Auto) 15.0 % (20.0-45.0) L Monocytes (%) (Auto) 7.8 % (1.0-10.0) Eosinophils (%) (Auto) 2.6 % (0.0-3.0) Basophils (%) (Auto) 1.2 % (0.0-2.0) Reticulocyte Count 0.5 % (0.0-2.0) Coagulation Test 07/03/17 04:00 Prothrombin Time 10.7 SEC (9.30-11.50) Prothromb Time International Ratio 1.0 (0.9-1.1) Activated Partial Thromboplast Time 34 SEC (23-33) H Chemistry Test 07/03/17 04:00 Sodium Level 141 MMOL/L (136-145) Potassium Level 4.3 MMOL/L (3.5-5.1) Chloride Level 104 MMOL/L (98-107) Carbon Dioxide Level 23 MMOL/L (21-32) Anion Gap 14 mmol/L (5-15) Blood Urea Nitrogen 26 mg/dL (7-18) H Creatinine 2.0 MG/DL (0.55-1.30) H Estimat Glomerular Filtration Rate mL/min (>60) Glucose Level 290 MG/DL (74-106) #H Hemoglobin A1c 7.5 % (4.3-6.0) H Lactic Acid Level 3.20 mmol/L (0.66-2.22) H Uric Acid 4.4 MG/DL (2.6-7.2) Calcium Level 8.6 MG/DL (8.5-10.1) Phosphorus Level 3.5 MG/DL (2.5-4.9) Magnesium Level 1.8 MG/DL (1.8-2.4) Iron Level 37 ug/dL (50-175) L Total Iron Binding Capacity 237 ug/dL (250-450) L Percent Iron Saturation 16 % (15-50) Unsaturated Iron Binding 200 ug/dL (112-346) Ferritin 70 NG/ML (8-388) Total Bilirubin 0.4 MG/DL (0.2-1.0) Gamma Glutamyl Transpeptidase 10 U/L (5-85) Aspartate Amino Transf (AST/SGOT) 10 U/L (15-37) L Alanine Aminotransferase (ALT/SGPT) 18 U/L (12-78) Alkaline Phosphatase 85 U/L (46-116) Total Creatine Kinase 41 U/L (26-308) Troponin I 0.035 ng/mL (0.000-0.056) C-Reactive Protein, Quantitative 10.9 mg/dL (0.00-0.90) H Pro-B-Type Natriuretic Peptide 2981 pg/mL (0-125) H Total Protein 6.9 G/DL (6.4-8.2) Albumin 2.6 G/DL (3.4-5.0) L Globulin 4.3 g/dL Albumin/Globulin Ratio 0.6 (1.0-2.7) L Triglycerides Level 130 MG/DL (30-150) Cholesterol Level 152 MG/DL (< 200) LDL Cholesterol 89 mg/dL (<100) HDL Cholesterol 45 MG/DL (40-60) Cholesterol/HDL Ratio 3.4 (3.3-4.4) Vitamin B12 Level 1134 PG/ML (193-986) H Folate 18.9 NG/ML (8.6-58.9) Thyroid Stimulating Hormone (TSH) 1.409 uiU/mL (0.358-3.740) Free Thyroxine 0.99 NG/DL (0.76-1.46) Becka Stephen MD July 03, 2017 11:15
--- NOTE | 2017-07-03 11:20 | Nephrology Progress Note ---
Assessment/Plan Problem List: (1) CRI (chronic renal insufficiency) (2) Hypertensive urgency (3) Acute hypoxemic respiratory failure (4) Anemia (5) Hypoalbuminemia Assessment - Hypertensive urgency on presentation - DM and Nephropathy - CRI (chronic renal insufficiency) Cr 2.1....1.9 - BiPAP (biphasic positive airway pressure) as needed - Acute hypoxemic respiratory failure - Oxygen desaturation - Bifascicular bundle branch block - HTN (hypertension) - CVA (cerebral infarction) - GERD (gastroesophageal reflux disease) - diverting colostomy - Diverticulitis Plan Plan: Antibiotics- monitor renal parameters- adjust bp meds- pulmonary support 2D Echo Normal left ventricular chamber size, systolic function and wall motion. Left ventricular ejection fraction estimated to be 55-60% to extend visualized. Avoid nephrotoxics per orders Subjective ROS Limited/Unobtainable: No Constitutional: Reports: malaise, other - more responsive Objective Objective Last 24 Hour Vital Signs Date Time Temp Pulse Resp B/P (MAP) Pulse Ox O2 Delivery O2 Flow Rate FiO2 07/03/17 08:00 88 07/03/17 08:00 98.2 99 18 144/70 98 Nasal Cannula 2.0 98.2 07/03/17 07:39 80 18 100 Nasal Cannula 2.0 28 07/03/17 07:30 85 18 98 Nasal Cannula 2.0 28 07/03/17 07:30 Nasal Cannula 2.0 28 07/03/17 07:30 98 Nasal Cannula 2.0 28 07/03/17 06:11 128/88 07/03/17 06:11 94 128/88 07/03/17 04:00 97.7 98 22 128/88 96 Nasal Cannula 2.0 97.7 07/03/17 04:00 94 07/03/17 01:49 75 18 100 Nasal Cannula 2.0 28 07/03/17 01:46 80 18 100 Nasal Cannula 2.0 28 07/03/17 00:00 97.0 91 21 116/67 100 Nasal Cannula 2.0 97.0 07/03/17 00:00 88 07/02/17 23:58 116/67 07/02/17 21:48 74 153/90 07/02/17 20:30 74 18 100 Nasal Cannula 2.0 28 07/02/17 20:24 Nasal Cannula 2.0 28 07/02/17 20:24 98 Nasal Cannula 2.0 28 07/02/17 20:20 68 18 98 Nasal Cannula 2.0 28 07/02/17 20:00 78 07/02/17 20:00 97.0 80 22 153/90 100 Nasal Cannula 2.0 97.0 07/02/17 17:06 163/99 07/02/17 16:59 98.6 80 24 163/99 99 Nasal Cannula 2.0 98.6 07/02/17 16:50 74 18 99 07/02/17 15:50 75 18 99 07/02/17 15:29 73 07/02/17 14:16 64 157/106 07/02/17 12:54 64 18 99 Nasal Cannula 2.0 28 07/02/17 12:46 76 18 98 Nasal Cannula 2.0 28 07/02/17 12:45 76 18 98 07/02/17 12:05 98.2 82 21 157/106 94 Nasal Cannula 2.0 98.2 07/02/17 11:52 61 07/02/17 11:24 76 18 98 Intake and Output 07/02/17 07/03/17 19:00 07:00 Intake Total 771.70 ml Output Total 460 ml Balance 311.70 ml Intake IV Total 771.70 ml Output Urine Total 400 ml Stool Total 60 ml # Voids 2 2 Laboratory Tests 07/03/17 04:00: White Blood Count 8.9, Red Blood Count 4.03L, Hemoglobin 10.8L, Hematocrit 35.1L , Mean Corpuscular Volume 87, Mean Corpuscular Hemoglobin 26.8L, Mean Corpuscular Hemoglobin Concent 30.8L, Red Cell Distribution Width 15.1H, Platelet Count 252, Mean Platelet Volume 7.4, Neutrophils (%) (Auto) 73.4, Lymphocytes (%) (Auto) 15.0L, Monocytes (%) (Auto) 7.8, Eosinophils (%) (Auto) 2.6, Basophils (%) (Auto) 1.2, Reticulocyte Count 0.5, Prothrombin Time 10.7, Prothromb Time International Ratio 1.0, Activated Partial Thromboplast Time 34H , Sodium Level 141, Potassium Level 4.3, Chloride Level 104, Carbon Dioxide Level 23, Anion Gap 14, Blood Urea Nitrogen 26H, Creatinine 2.0H, Estimat Glomerular Filtration Rate , Glucose Level 290#H, Hemoglobin A1c 7.5H, Lactic Acid Level 3.20H, Uric Acid 4.4, Calcium Level 8.6, Phosphorus Level 3.5, Magnesium Level 1.8, Iron Level 37L, Total Iron Binding Capacity 237L, Percent Iron Saturation 16, Unsaturated Iron Binding 200, Ferritin 70, Total Bilirubin 0.4, Gamma Glutamyl Transpeptidase 10, Aspartate Amino Transf (AST/SGOT) 10L, Alanine Aminotransferase (ALT/SGPT) 18, Alkaline Phosphatase 85, Total Creatine Kinase 41, Troponin I 0.035, C-Reactive Protein, Quantitative 10.9H, Pro-B-Type Natriuretic Peptide 2981H, Total Protein 6.9, Albumin 2.6L, Globulin 4.3, Albumin/Globulin Ratio 0.6L, Triglycerides Level 130, Cholesterol Level 152, LDL Cholesterol 89, HDL Cholesterol 45, Cholesterol/HDL Ratio 3.4, Vitamin B12 Level 1134H, Folate 18.9, Thyroid Stimulating Hormone (TSH) 1.409, Free Thyroxine 0.99, Random Vancomycin Level 13.8 07/03/17 05:00: Stool Occult Blood [Pending] Height (Feet): 5 Height (Inches): 5.00 Weight (Pounds): 187 General Appearance: no apparent distress Cardiovascular: tachycardia Respiratory/Chest: decreased breath sounds Abdomen: soft JAVAN RODRIGUEZ July 03, 2017 11:20
[2017-07-03] MEDS: Piperacillin/Tazobactam 3.375 GM in D5W 110 ML IVPB SCH ×2 (11:52→21:18)
--- NOTE | 2017-07-03 13:13 | Infectious Diseases Prog Note ---
Assessment/Plan Assessment/Plan A: Sepsis improving Pneumonia Bacteremia with CoANS contamination Respiratory failure Renal failure Dementia Dysphagia Gastrostomy status P; Continue Zosyn, IV Vancomycin was discontinued Subjective ROS Limited/Unobtainable: Yes Gastrointestinal/Abdominal: Reports: other - had EGD & PEG placement Allergies: Coded Allergies: No Known Allergies (Verified , 12/29/06) Objective Vital Signs Last 24 Hour Vital Signs Date Time Temp Pulse Resp B/P (MAP) Pulse Ox O2 Delivery O2 Flow Rate FiO2 07/03/17 12:00 90 07/03/17 12:00 97.7 87 18 165/92 100 Nasal Cannula 2.0 97.7 07/03/17 11:52 170/79 07/03/17 11:28 98.4 91 18 170/79 98 Nasal Cannula 2.0 98.4 07/03/17 11:20 90 18 168/88 98 Nasal Cannula 2.0 07/03/17 11:15 89 20 161/85 97 Nasal Cannula 2.0 07/03/17 11:10 98.6 91 16 157/92 97 Nasal Cannula 2.0 98.6 07/03/17 08:00 88 07/03/17 08:00 98.2 99 18 144/70 98 Nasal Cannula 2.0 98.2 07/03/17 07:39 80 18 100 Nasal Cannula 2.0 28 07/03/17 07:30 85 18 98 Nasal Cannula 2.0 28 07/03/17 07:30 Nasal Cannula 2.0 28 07/03/17 07:30 98 Nasal Cannula 2.0 28 07/03/17 06:11 128/88 07/03/17 06:11 94 128/88 07/03/17 04:00 97.7 98 22 128/88 96 Nasal Cannula 2.0 97.7 07/03/17 04:00 94 07/03/17 01:49 75 18 100 Nasal Cannula 2.0 28 07/03/17 01:46 80 18 100 Nasal Cannula 2.0 28 07/03/17 00:00 97.0 91 21 116/67 100 Nasal Cannula 2.0 97.0 07/03/17 00:00 88 07/02/17 23:58 116/67 07/02/17 21:48 74 153/90 07/02/17 20:30 74 18 100 Nasal Cannula 2.0 28 07/02/17 20:24 Nasal Cannula 2.0 28 07/02/17 20:24 98 Nasal Cannula 2.0 28 07/02/17 20:20 68 18 98 Nasal Cannula 2.0 28 07/02/17 20:00 78 07/02/17 20:00 97.0 80 22 153/90 100 Nasal Cannula 2.0 97.0 07/02/17 17:06 163/99 07/02/17 16:59 98.6 80 24 163/99 99 Nasal Cannula 2.0 98.6 07/02/17 16:50 74 18 99 07/02/17 15:50 75 18 99 07/02/17 15:29 73 07/02/17 14:16 64 157/106 Height (Feet): 5 Height (Inches): 5.00 Weight (Pounds): 187 General Appearance: no acute distress HEENT: mucous membranes moist Respiratory/Chest: lungs clear Cardiovascular: normal rate Abdomen: soft, non tender, other - GT in place Extremities: no edema Neurologic/Psychiatric: alert, responsive, disoriented Microbiology Date/Time Source Procedure Growth Status 07/01/17 08:23 Blood Blood Culture - Preliminary Staphylococcus Sp Coag Neg Resulted 07/01/17 08:05 Blood Blood Culture - Preliminary Staphylococcus Sp Coag Neg Resulted 07/01/17 10:00 Nasal Nares Influenza Types A,B Antigen (NELA) - Final Complete 07/01/17 08:23 Nasal Nares MRSA Culture - Final NO METHICILLIN RESISTANT STAPH AUREUS... Complete 07/01/17 08:23 Rectum VRE Culture - Final NO VANCOMYCIN RESISTANT ENTEROCOCCUS ... Complete Laboratory Tests Test 07/03/17 04:00 07/03/17 05:00 White Blood Count 8.9 K/UL (4.8-10.8) Red Blood Count 4.03 M/UL (4.70-6.10) L Hemoglobin 10.8 G/DL (14.2-18.0) L Hematocrit 35.1 % (42.0-52.0) L Mean Corpuscular Volume 87 FL (80-99) Mean Corpuscular Hemoglobin 26.8 PG (27.0-31.0) L Mean Corpuscular Hemoglobin Concent 30.8 G/DL (32.0-36.0) L Red Cell Distribution Width 15.1 % (11.6-14.8) H Platelet Count 252 K/UL (150-450) Mean Platelet Volume 7.4 FL (6.5-10.1) Neutrophils (%) (Auto) 73.4 % (45.0-75.0) Lymphocytes (%) (Auto) 15.0 % (20.0-45.0) L Monocytes (%) (Auto) 7.8 % (1.0-10.0) Eosinophils (%) (Auto) 2.6 % (0.0-3.0) Basophils (%) (Auto) 1.2 % (0.0-2.0) Reticulocyte Count 0.5 % (0.0-2.0) Prothrombin Time 10.7 SEC (9.30-11.50) Prothromb Time International Ratio 1.0 (0.9-1.1) Activated Partial Thromboplast Time 34 SEC (23-33) H Sodium Level 141 MMOL/L (136-145) Potassium Level 4.3 MMOL/L (3.5-5.1) Chloride Level 104 MMOL/L (98-107) Carbon Dioxide Level 23 MMOL/L (21-32) Anion Gap 14 mmol/L (5-15) Blood Urea Nitrogen 26 mg/dL (7-18) H Creatinine 2.0 MG/DL (0.55-1.30) H Estimat Glomerular Filtration Rate mL/min (>60) Glucose Level 290 MG/DL (74-106) #H Hemoglobin A1c 7.5 % (4.3-6.0) H Lactic Acid Level 3.20 mmol/L (0.66-2.22) H Uric Acid 4.4 MG/DL (2.6-7.2) Calcium Level 8.6 MG/DL (8.5-10.1) Phosphorus Level 3.5 MG/DL (2.5-4.9) Magnesium Level 1.8 MG/DL (1.8-2.4) Iron Level 37 ug/dL (50-175) L Total Iron Binding Capacity 237 ug/dL (250-450) L Percent Iron Saturation 16 % (15-50) Unsaturated Iron Binding 200 ug/dL (112-346) Ferritin 70 NG/ML (8-388) Total Bilirubin 0.4 MG/DL (0.2-1.0) Gamma Glutamyl Transpeptidase 10 U/L (5-85) Aspartate Amino Transf (AST/SGOT) 10 U/L (15-37) L Alanine Aminotransferase (ALT/SGPT) 18 U/L (12-78) Alkaline Phosphatase 85 U/L (46-116) Total Creatine Kinase 41 U/L (26-308) Troponin I 0.035 ng/mL (0.000-0.056) C-Reactive Protein, Quantitative 10.9 mg/dL (0.00-0.90) H Pro-B-Type Natriuretic Peptide 2981 pg/mL (0-125) H Total Protein 6.9 G/DL (6.4-8.2) Albumin 2.6 G/DL (3.4-5.0) L Globulin 4.3 g/dL Albumin/Globulin Ratio 0.6 (1.0-2.7) L Triglycerides Level 130 MG/DL (30-150) Cholesterol Level 152 MG/DL (< 200) LDL Cholesterol 89 mg/dL (<100) HDL Cholesterol 45 MG/DL (40-60) Cholesterol/HDL Ratio 3.4 (3.3-4.4) Vitamin B12 Level 1134 PG/ML (193-986) H Folate 18.9 NG/ML (8.6-58.9) Thyroid Stimulating Hormone (TSH) 1.409 uiU/mL (0.358-3.740) Free Thyroxine 0.99 NG/DL (0.76-1.46) Random Vancomycin Level 13.8 ug/mL Stool Occult Blood Negative (NEGATIVE) Current Medications Medications (Trade) Dose Ordered Sig/Jared Route PRN Reason Start Time Stop Time Status Last Admin Dose Admin Acetaminophen (Tylenol) 500 mg Q6HR PRN ORAL moderate pain (4-6) 07/01/17 12:00 07/31/17 11:59 Acetaminophen (Tylenol) 650 mg Q4H PRN ORAL Mild Pain/Temp > 100.5 07/01/17 12:00 07/31/17 11:59 07/01/17 21:28 Albuterol/ Ipratropium (Albuterol/ Ipratropium) 3 ml Q4H PRN HHN Shortness of Breath 07/01/17 18:15 07/06/17 18:14 Albuterol/ Ipratropium (Albuterol/ Ipratropium) 3 ml Q6HRT HHN 5/9/18 19:00 07/06/17 18:59 07/03/17 07:32 Dextrose (Dextrose 50%) 25 ml STAT PRN IV Hypoglycemia 07/01/17 11:45 07/31/17 11:44 Dextrose (Dextrose 50%) 50 ml STAT PRN IV Hypoglycemia 07/01/17 11:45 07/31/17 11:44 Dextrose/ Electrolytes 1,000 ml @ 50 mls/hr Q20H IV 07/02/17 13:30 07/31/17 14:59 07/02/17 14:02 Diltiazem HCl (Cardizem) 30 mg Q8HR ORAL 07/01/17 14:00 07/31/17 13:59 07/03/17 06:11 Heparin Sodium (Porcine) (Heparin 5000 units/ml) 5,000 units EVERY 12 HOURS SUBQ 07/01/17 21:00 07/31/17 20:59 07/02/17 21:53 Hydralazine HCl (Apresoline) 25 mg Q6HR ORAL 07/02/17 18:00 08/01/17 17:59 07/03/17 06:11 Multivitamins (Multivitamins) 1 tab DAILY ORAL 07/02/17 09:00 08/01/17 08:59 07/02/17 08:25 Pantoprazole (Protonix) 40 mg DAILY IVP 07/02/17 09:00 08/01/17 08:59 07/03/17 08:48 Piperacillin Sod/ Tazobactam Sod 3.375 gm/Dextrose 110 ml @ 27.5 mls/hr EVERY 12 HOURS IVPB 07/01/17 21:00 07/06/17 20:59 07/03/17 11:52 Quetiapine Fumarate (SEROquel) 25 mg BEDTIME ORAL 07/03/17 21:00 08/02/17 20:59 UNV Quetiapine Fumarate (SEROquel) 25 mg EVERY 6 HOURS PRN ORAL Agitation 07/03/17 13:15 08/02/17 13:14 UNV HORTENSIA MALHOTRA July 03, 2017 13:13
--- NOTE | 2017-07-03 13:28 | Consultation ---
History of Present Illness General Date patient seen: July 03, 2017 Chief Complaint: Dyspnea/Respdistress Referring physician: DONNIE PORTER Reason for Consultation: COLOSTOMY Present Illness HPI 81 yo male with mmp and hx of psychosis came in of medical stablization. the pt gets agitated easily and is not cooperative with the exam Allergies: Coded Allergies: No Known Allergies (Verified , 12/29/06) Medication History Scheduled Acetaminophen (Tylenol), 650 MG PO Q4HR, (Reported) Diltiazem HCl (Diltiazem 12Hr ER), 30 MG ORAL Q8HR, (Reported) Donepezil Hcl* (Aricept*), 5 MG ORAL DAILY, (Reported) Insulin Aspart* (Novolog*), 6 SUBQ 1200/5 PM , (Reported) Insulin Detemir (Levemir), 75 SUBQ 9AM, (Reported) Insulin Detemir (Levemir), 30 UNIT SUBQ 9 PM , (Reported) Multivitamin (Multi Vitamin Daily), 1 TAB ORAL DAILY, (Reported) Potassium Chloride (Potassium Chloride), 20 MEQ ORAL DAILY, (Reported) Patient History Limited by: medical condition History Provided By: Patient, Medical Record, PMD Healthcare decision maker Resuscitation status Full Code Advanced Directive on File No Past Medical/Surgical History Past Medical/Surgical History: (1) Sinus tachycardia (2) Oxygen desaturation (3) Bifascicular bundle branch block (4) Diverticulitis (5) GERD (gastroesophageal reflux disease) (6) HTN (hypertension) (7) CVA (cerebral infarction) (8) DM (diabetes mellitus) (9) CRI (chronic renal insufficiency) (10) BiPAP (biphasic positive airway pressure) dependence (11) Hypertensive urgency (12) Acute hypoxemic respiratory failure (13) diverting colostomy (14) Abdominal pain (15) Oxygen desaturation (16) Anemia (17) Sepsis (18) Hypoalbuminemia Review of Systems Psychiatric: Reports: prior hx, anxiety, depressed feelings, emotional problems , hallucinations Physical Exam General Appearance: WD/WN, no apparent distress, alert, agitated Last 24 Hour Vital Signs Date Time Temp Pulse Resp B/P (MAP) Pulse Ox O2 Delivery O2 Flow Rate FiO2 07/03/17 12:00 90 07/03/17 12:00 97.7 87 18 165/92 100 Nasal Cannula 2.0 97.7 07/03/17 11:52 170/79 07/03/17 11:28 98.4 91 18 170/79 98 Nasal Cannula 2.0 98.4 07/03/17 11:20 90 18 168/88 98 Nasal Cannula 2.0 07/03/17 11:15 89 20 161/85 97 Nasal Cannula 2.0 07/03/17 11:10 98.6 91 16 157/92 97 Nasal Cannula 2.0 98.6 07/03/17 08:00 88 07/03/17 08:00 98.2 99 18 144/70 98 Nasal Cannula 2.0 98.2 07/03/17 07:39 80 18 100 Nasal Cannula 2.0 28 07/03/17 07:30 85 18 98 Nasal Cannula 2.0 28 07/03/17 07:30 Nasal Cannula 2.0 28 07/03/17 07:30 98 Nasal Cannula 2.0 28 07/03/17 06:11 128/88 07/03/17 06:11 94 128/88 07/03/17 04:00 97.7 98 22 128/88 96 Nasal Cannula 2.0 97.7 07/03/17 04:00 94 07/03/17 01:49 75 18 100 Nasal Cannula 2.0 28 07/03/17 01:46 80 18 100 Nasal Cannula 2.0 28 07/03/17 00:00 97.0 91 21 116/67 100 Nasal Cannula 2.0 97.0 07/03/17 00:00 88 07/02/17 23:58 116/67 07/02/17 21:48 74 153/90 07/02/17 20:30 74 18 100 Nasal Cannula 2.0 28 07/02/17 20:24 Nasal Cannula 2.0 28 07/02/17 20:24 98 Nasal Cannula 2.0 28 07/02/17 20:20 68 18 98 Nasal Cannula 2.0 28 07/02/17 20:00 78 07/02/17 20:00 97.0 80 22 153/90 100 Nasal Cannula 2.0 97.0 07/02/17 17:06 163/99 07/02/17 16:59 98.6 80 24 163/99 99 Nasal Cannula 2.0 98.6 07/02/17 16:50 74 18 99 07/02/17 15:50 75 18 99 07/02/17 15:29 73 07/02/17 14:16 64 157/106 Intake and Output 07/02/17 07/03/17 19:00 07:00 Intake Total 771.70 ml Output Total 460 ml Balance 311.70 ml Intake IV Total 771.70 ml Output Urine Total 400 ml Stool Total 60 ml # Voids 2 2 Laboratory Tests Test 07/03/17 04:00 07/03/17 05:00 White Blood Count 8.9 K/UL (4.8-10.8) Red Blood Count 4.03 M/UL (4.70-6.10) L Hemoglobin 10.8 G/DL (14.2-18.0) L Hematocrit 35.1 % (42.0-52.0) L Mean Corpuscular Volume 87 FL (80-99) Mean Corpuscular Hemoglobin 26.8 PG (27.0-31.0) L Mean Corpuscular Hemoglobin Concent 30.8 G/DL (32.0-36.0) L Red Cell Distribution Width 15.1 % (11.6-14.8) H Platelet Count 252 K/UL (150-450) Mean Platelet Volume 7.4 FL (6.5-10.1) Neutrophils (%) (Auto) 73.4 % (45.0-75.0) Lymphocytes (%) (Auto) 15.0 % (20.0-45.0) L Monocytes (%) (Auto) 7.8 % (1.0-10.0) Eosinophils (%) (Auto) 2.6 % (0.0-3.0) Basophils (%) (Auto) 1.2 % (0.0-2.0) Reticulocyte Count 0.5 % (0.0-2.0) Prothrombin Time 10.7 SEC (9.30-11.50) Prothromb Time International Ratio 1.0 (0.9-1.1) Activated Partial Thromboplast Time 34 SEC (23-33) H Sodium Level 141 MMOL/L (136-145) Potassium Level 4.3 MMOL/L (3.5-5.1) Chloride Level 104 MMOL/L (98-107) Carbon Dioxide Level 23 MMOL/L (21-32) Anion Gap 14 mmol/L (5-15) Blood Urea Nitrogen 26 mg/dL (7-18) H Creatinine 2.0 MG/DL (0.55-1.30) H Estimat Glomerular Filtration Rate mL/min (>60) Glucose Level 290 MG/DL (74-106) #H Hemoglobin A1c 7.5 % (4.3-6.0) H Lactic Acid Level 3.20 mmol/L (0.66-2.22) H Uric Acid 4.4 MG/DL (2.6-7.2) Calcium Level 8.6 MG/DL (8.5-10.1) Phosphorus Level 3.5 MG/DL (2.5-4.9) Magnesium Level 1.8 MG/DL (1.8-2.4) Iron Level 37 ug/dL (50-175) L Total Iron Binding Capacity 237 ug/dL (250-450) L Percent Iron Saturation 16 % (15-50) Unsaturated Iron Binding 200 ug/dL (112-346) Ferritin 70 NG/ML (8-388) Total Bilirubin 0.4 MG/DL (0.2-1.0) Gamma Glutamyl Transpeptidase 10 U/L (5-85) Aspartate Amino Transf (AST/SGOT) 10 U/L (15-37) L Alanine Aminotransferase (ALT/SGPT) 18 U/L (12-78) Alkaline Phosphatase 85 U/L (46-116) Total Creatine Kinase 41 U/L (26-308) Troponin I 0.035 ng/mL (0.000-0.056) C-Reactive Protein, Quantitative 10.9 mg/dL (0.00-0.90) H Pro-B-Type Natriuretic Peptide 2981 pg/mL (0-125) H Total Protein 6.9 G/DL (6.4-8.2) Albumin 2.6 G/DL (3.4-5.0) L Globulin 4.3 g/dL Albumin/Globulin Ratio 0.6 (1.0-2.7) L Triglycerides Level 130 MG/DL (30-150) Cholesterol Level 152 MG/DL (< 200) LDL Cholesterol 89 mg/dL (<100) HDL Cholesterol 45 MG/DL (40-60) Cholesterol/HDL Ratio 3.4 (3.3-4.4) Vitamin B12 Level 1134 PG/ML (193-986) H Folate 18.9 NG/ML (8.6-58.9) Thyroid Stimulating Hormone (TSH) 1.409 uiU/mL (0.358-3.740) Free Thyroxine 0.99 NG/DL (0.76-1.46) Random Vancomycin Level 13.8 ug/mL Stool Occult Blood Negative (NEGATIVE) Height (Feet): 5 Height (Inches): 5.00 Weight (Pounds): 187 Medications Current Medications Medications (Trade) Dose Ordered Sig/Jared Route PRN Reason Start Time Stop Time Status Last Admin Dose Admin Acetaminophen (Tylenol) 500 mg Q6HR PRN ORAL moderate pain (4-6) 07/01/17 12:00 07/31/17 11:59 Acetaminophen (Tylenol) 650 mg Q4H PRN ORAL Mild Pain/Temp > 100.5 07/01/17 12:00 07/31/17 11:59 07/01/17 21:28 Albuterol/ Ipratropium (Albuterol/ Ipratropium) 3 ml Q4H PRN HHN Shortness of Breath 07/01/17 18:15 07/06/17 18:14 Albuterol/ Ipratropium (Albuterol/ Ipratropium) 3 ml Q6HRT HHN 07/01/17 19:00 07/06/17 18:59 07/03/17 07:32 Dextrose (Dextrose 50%) 25 ml STAT PRN IV Hypoglycemia 07/01/17 11:45 07/31/17 11:44 Dextrose (Dextrose 50%) 50 ml STAT PRN IV Hypoglycemia 07/01/17 11:45 07/31/17 11:44 Dextrose/ Electrolytes 1,000 ml @ 50 mls/hr Q20H IV 07/02/17 13:30 07/31/17 14:59 07/02/17 14:02 Diltiazem HCl (Cardizem) 30 mg Q8HR ORAL 07/01/17 14:00 07/31/17 13:59 07/03/17 06:11 Heparin Sodium (Porcine) (Heparin 5000 units/ml) 5,000 units EVERY 12 HOURS SUBQ 07/01/17 21:00 07/31/17 20:59 07/02/17 21:53 Hydralazine HCl (Apresoline) 25 mg Q6HR ORAL 07/02/17 18:00 08/01/17 17:59 07/03/17 06:11 Multivitamins (Multivitamins) 1 tab DAILY ORAL 07/02/17 09:00 08/01/17 08:59 07/02/17 08:25 Pantoprazole (Protonix) 40 mg DAILY IVP 07/02/17 09:00 08/01/17 08:59 07/03/17 08:48 Piperacillin Sod/ Tazobactam Sod 3.375 gm/Dextrose 110 ml @ 27.5 mls/hr EVERY 12 HOURS IVPB 07/01/17 21:00 07/06/17 20:59 07/03/17 11:52 Assessment/Plan Status: stable Assessment/Plan encephalopathy dementia with behavioral issues seroaval Ce Boogie M.D. July 03, 2017 13:28
[2017-07-03] MEDS ORDERED: Tubing IV Secondary IV ONE (14:04)
[2017-07-03] MEDS ORDERED: NS 500ML ONE (14:04)
--- NOTE | 2017-07-03 17:31 | Procedure Note ---
DATE OF PROCEDURE: 07/03/2017 SURGEON: Abner Ochoa M.D. ANESTHESIOLOGIST: Dr. Stephen. REFERRING PHYSICIAN: Rene Sin M.D. PROCEDURE: Upper endoscopy with PEG placement. ANESTHESIA: Per Dr. Stephen. INSTRUMENT: Olympus adult flexible upper endoscope. INDICATION: Dysphagia, failure to thrive. The procedure, risks, benefits, and possible consequences, including hemorrhage, aspiration, perforation and infection, and alternative treatments, were explained to the patient/legal guardian by Dr. Abner Ochoa and the patient/legal guardian understood and accepted these risks. DESCRIPTION OF PROCEDURE: After informed consent was obtained and the patient was adequately sedated, Olympus upper endoscope was advanced from the mouth to the second portion of the duodenum and retroflexion was performed in the stomach. Then, under endoscopic guidance, under sterile condition, a 20-[place] pull type of G-tube was placed in the epigastric area. The distance from the tip of the tube to the skin was about a little over 3 cm in size. The patient tolerated the procedure well without any complication. SUMMARY OF FINDINGS: Status post successful PEG placement. RECOMMENDATIONS: Abdominal binder. Elevate the head of the bed at all times. G-tube flush. G-tube care. Currently, the patient on antibiotics, we will continue. No need for adding any more antibiotics at this time. I want to thank Dr. Rene Sin for this kind referral. Abner Ochoa M.D. DR: Mason JOB#: [id number] CC:
[2017-07-03] MEDS ORDERED: Vancomycin 1250mg/D5W 250ml 250 ML IVPB SCH (20:00)
--- NOTE | 2017-07-03 20:50 | General Progress Note ---
Assessment/Plan Problem List: (1) HTN (hypertension) ICD Codes: I10 - HTN (hypertension) SNOMED: 23540082 (2) Sinus tachycardia ICD Codes: R00.0 - Tachycardia, unspecified SNOMED: 62553177 (3) Oxygen desaturation ICD Codes: R09.02 - Hypoxemia SNOMED: 149167794 (4) Bifascicular bundle branch block ICD Codes: I45.2 - Bifascicular block SNOMED: 70880650 (5) DM (diabetes mellitus) ICD Codes: E11.9 - DM (diabetes mellitus) SNOMED: 61102088 (6) BiPAP (biphasic positive airway pressure) dependence ICD Codes: Z99.89 - Dependence on other enabling machines and devices SNOMED: 171403456 (7) diverting colostomy (8) Sepsis ICD Codes: A41.9 - Sepsis, unspecified organism SNOMED: 18356351 (9) Oxygen desaturation ICD Codes: R09.02 - Hypoxemia SNOMED: 626192209 Status: stable Assessment/Plan sepsis is improving weak sugar improviing colostomy hypoxia improving h/o megacolon reviewed chart and labs Subjective ROS Limited/Unobtainable: Yes Allergies: Coded Allergies: No Known Allergies (Verified , 12/29/06) Objective Last 24 Hour Vital Signs Date Time Temp Pulse Resp B/P (MAP) Pulse Ox O2 Delivery O2 Flow Rate FiO2 07/03/17 19:08 79 18 99 Nasal Cannula 2.0 28 07/03/17 19:08 Nasal Cannula 2.0 28 07/03/17 19:05 Nasal Cannula 2.0 28 07/03/17 19:05 99 Nasal Cannula 2.0 28 07/03/17 17:19 165/87 07/03/17 16:00 92 07/03/17 16:00 97.8 87 20 165/87 95 Nasal Cannula 2.0 97.8 07/03/17 14:00 82 165/92 07/03/17 13:22 82 18 100 Nasal Cannula 2.0 28 07/03/17 13:12 83 18 100 Nasal Cannula 2.0 28 07/03/17 12:00 90 07/03/17 12:00 97.7 87 18 165/92 100 Nasal Cannula 2.0 97.7 07/03/17 11:52 170/79 07/03/17 11:28 98.4 91 18 170/79 98 Nasal Cannula 2.0 98.4 07/03/17 11:20 90 18 168/88 98 Nasal Cannula 2.0 07/03/17 11:15 89 20 161/85 97 Nasal Cannula 2.0 07/03/17 11:10 98.6 91 16 157/92 97 Nasal Cannula 2.0 98.6 07/03/17 08:00 88 07/03/17 08:00 98.2 99 18 144/70 98 Nasal Cannula 2.0 98.2 07/03/17 07:39 80 18 100 Nasal Cannula 2.0 28 07/03/17 07:30 85 18 98 Nasal Cannula 2.0 28 07/03/17 07:30 Nasal Cannula 2.0 28 07/03/17 07:30 98 Nasal Cannula 2.0 28 07/03/17 06:11 128/88 07/03/17 06:11 94 128/88 07/03/17 04:00 97.7 98 22 128/88 96 Nasal Cannula 2.0 97.7 07/03/17 04:00 94 07/03/17 01:49 75 18 100 Nasal Cannula 2.0 28 07/03/17 01:46 80 18 100 Nasal Cannula 2.0 28 07/03/17 00:00 97.0 91 21 116/67 100 Nasal Cannula 2.0 97.0 07/03/17 00:00 88 07/02/17 23:58 116/67 07/02/17 21:48 74 153/90 Intake and Output 07/02/17 07/03/17 19:00 07:00 Intake Total 771.70 ml Output Total 460 ml Balance 311.70 ml IV Total 771.70 ml Output Urine Total 400 ml Stool Total 60 ml # Voids 2 2 Laboratory Tests 07/03/17 04:00: White Blood Count 8.9, Red Blood Count 4.03L, Hemoglobin 10.8L, Hematocrit 35.1L , Mean Corpuscular Volume 87, Mean Corpuscular Hemoglobin 26.8L, Mean Corpuscular Hemoglobin Concent 30.8L, Red Cell Distribution Width 15.1H, Platelet Count 252, Mean Platelet Volume 7.4, Neutrophils (%) (Auto) 73.4, Lymphocytes (%) (Auto) 15.0L, Monocytes (%) (Auto) 7.8, Eosinophils (%) (Auto) 2.6, Basophils (%) (Auto) 1.2, Reticulocyte Count 0.5, Prothrombin Time 10.7, Prothromb Time International Ratio 1.0, Activated Partial Thromboplast Time 34H , Sodium Level 141, Potassium Level 4.3, Chloride Level 104, Carbon Dioxide Level 23, Anion Gap 14, Blood Urea Nitrogen 26H, Creatinine 2.0H, Estimat Glomerular Filtration Rate , Glucose Level 290#H, Hemoglobin A1c 7.5H, Lactic Acid Level 3.20H, Uric Acid 4.4, Calcium Level 8.6, Phosphorus Level 3.5, Magnesium Level 1.8, Iron Level 37L, Total Iron Binding Capacity 237L, Percent Iron Saturation 16, Unsaturated Iron Binding 200, Ferritin 70, Total Bilirubin 0.4, Gamma Glutamyl Transpeptidase 10, Aspartate Amino Transf (AST/SGOT) 10L, Alanine Aminotransferase (ALT/SGPT) 18, Alkaline Phosphatase 85, Total Creatine Kinase 41, Troponin I 0.035, C-Reactive Protein, Quantitative 10.9H, Pro-B-Type Natriuretic Peptide 2981H, Total Protein 6.9, Albumin 2.6L, Globulin 4.3, Albumin/Globulin Ratio 0.6L, Triglycerides Level 130, Cholesterol Level 152, LDL Cholesterol 89, HDL Cholesterol 45, Cholesterol/HDL Ratio 3.4, Vitamin B12 Level 1134H, Folate 18.9, Thyroid Stimulating Hormone (TSH) 1.409, Free Thyroxine 0.99, Random Vancomycin Level 13.8 07/03/17 05:00: Stool Occult Blood Negative Height (Feet): 5 Height (Inches): 5.00 Weight (Pounds): 187 Cardiovascular: normal rate Respiratory/Chest: lungs clear Abdomen: soft Rene Sin MD July 03, 2017 20:50
[2017-07-04] VITALS: BP 139/75
[2017-07-04] MEDS ORDERED: HydrALAZINE 25mg tab ORAL SCH ×2 (00:17→06:00)
[2017-07-04] MEDS: Albuterol/Ipratropium 3ml neb HHN SCH ×4 (00:59→19:00)
[2017-07-04 03:46] LABS: BASOPHILS % (AUTO) 0.8 % (0.0-2.0); HEMATOCRIT 36.7 % (42.0-52.0); HEMOGLOBIN 11.5 G/DL (14.2-18.0); LYMPHOCYTES % (AUTO) 12.4 % (20.0-45.0); MEAN CORPUSCULAR VOLUME 84 FL (80-99); NEUTROPHILS % (AUTO) 74.7 % (45.0-75.0); PLATELET COUNT 253 K/UL (150-450); RED BLOOD COUNT 4.35 M/UL (4.70-6.10); RED CELL DISTRIBUTION WIDTH 14.9 % (11.6-14.8); WHITE BLOOD COUNT 8.9 K/UL (4.8-10.8)
[2017-07-04 04:00] VITALS: BP 142/79
[2017-07-04 04:00] LABS: ANION GAP 9 mmol/L (5-15); BLOOD UREA NITROGEN 20 mg/dL (7-18); CALCIUM 9.4 MG/DL (8.5-10.1); CARBON DIOXIDE 27 MMOL/L (21-32); CHLORIDE 104 MMOL/L (98-107); PHOSPHORUS 2.2 MG/DL (2.5-4.9); POTASSIUM 3.6 MMOL/L (3.5-5.1); SODIUM 140 MMOL/L (136-145)
[2017-07-04] MEDS: D5 1/2NS w/KCL 10meq 1,000 ML IV SCH ×2 (04:47→20:17)
[2017-07-04] MEDS ORDERED: dilTIAZem HCl 30mg tab ORAL SCH (06:00)
[2017-07-04] MEDS: HydrALAZINE 25mg tab ORAL SCH ×3 (06:28→18:39)
[2017-07-04 08:00] VITALS: BP 142/67
[2017-07-04] MEDS: Pantoprazole Inj IVP SCH (08:34)
[2017-07-04] MEDS: Piperacillin/Tazobactam 3.375 GM in D5W 110 ML IVPB SCH ×2 (08:35→20:18)
[2017-07-04] MEDS: Heparin 5000 units/ml inj SUBQ SCH ×2 (10:33→20:19)
--- NOTE | 2017-07-04 10:59 | Nephrology Progress Note ---
Assessment/Plan Problem List: (1) CRI (chronic renal insufficiency) (2) Hypertensive urgency (3) Acute hypoxemic respiratory failure (4) Anemia (5) Hypoalbuminemia Assessment - Hypertensive urgency on presentation - DM and Nephropathy - CRI (chronic renal insufficiency) Cr 2.1....2.0 - BiPAP (biphasic positive airway pressure) as needed - Acute hypoxemic respiratory failure - Oxygen desaturation - Bifascicular bundle branch block - HTN (hypertension) - CVA (cerebral infarction) - GERD (gastroesophageal reflux disease) - diverting colostomy - Diverticulitis Plan Plan: Antibiotics- monitor renal parameters- adjust bp meds- pulmonary support Phos supp 2D Echo Normal left ventricular chamber size, systolic function and wall motion. Left ventricular ejection fraction estimated to be 55-60% to extend visualized. Avoid nephrotoxics per orders Subjective ROS Limited/Unobtainable: No Objective Objective Last 24 Hour Vital Signs Date Time Temp Pulse Resp B/P (MAP) Pulse Ox O2 Delivery O2 Flow Rate FiO2 07/04/17 08:00 93 07/04/17 08:00 97.7 97 17 142/67 97 Nasal Cannula 2.0 97.7 07/04/17 07:37 76 18 100 Nasal Cannula 2.0 28 07/04/17 07:28 73 18 98 Nasal Cannula 2.0 28 07/04/17 07:28 Nasal Cannula 2.0 28 07/04/17 07:28 98 Nasal Cannula 2.0 28 07/04/17 06:28 135/72 07/04/17 05:25 88 139/75 07/04/17 04:00 98.2 81 18 142/79 98 Nasal Cannula 2.0 98.2 07/04/17 04:00 90 07/04/17 01:12 148/88 07/04/17 01:00 83 16 98 Nasal Cannula 2.0 28 07/04/17 01:00 Nasal Cannula 2.0 28 07/04/17 00:00 90 07/04/17 00:00 97.5 89 20 139/75 98 Nasal Cannula 2.0 97.5 07/04/17 00:00 97 07/03/17 21:18 92 150/91 07/03/17 20:00 93 07/03/17 20:00 97.1 84 18 148/82 98 Nasal Cannula 2.0 97.1 07/03/17 19:08 79 18 99 Nasal Cannula 2.0 28 07/03/17 19:08 Nasal Cannula 2.0 28 07/03/17 19:05 Nasal Cannula 2.0 28 07/03/17 19:05 99 Nasal Cannula 2.0 28 07/03/17 17:19 165/87 07/03/17 16:00 92 07/03/17 16:00 97.8 87 20 165/87 95 Nasal Cannula 2.0 97.8 07/03/17 14:00 82 165/92 07/03/17 13:22 82 18 100 Nasal Cannula 2.0 28 07/03/17 13:12 83 18 100 Nasal Cannula 2.0 28 07/03/17 12:00 90 07/03/17 12:00 97.7 87 18 165/92 100 Nasal Cannula 2.0 97.7 07/03/17 11:52 170/79 07/03/17 11:28 98.4 91 18 170/79 98 Nasal Cannula 2.0 98.4 07/03/17 11:20 90 18 168/88 98 Nasal Cannula 2.0 07/03/17 11:15 89 20 161/85 97 Nasal Cannula 2.0 07/03/17 11:10 98.6 91 16 157/92 97 Nasal Cannula 2.0 98.6 Intake and Output 07/03/17 07/04/17 19:00 07:00 Intake Total 400 ml 1130.0 ml Output Total 3 ml 385 ml Balance 397 ml 745.0 ml Intake Free Water 60 ml 100 ml IV Total 300 ml 710.0 ml Tube Feeding 40 ml 320 ml Output Urine Total 2 ml 385 ml Stool Total 1 ml # Bowel Movements 1 Laboratory Tests 07/04/17 03:20: White Blood Count 8.9, Red Blood Count 4.35L, Hemoglobin 11.5L, Hematocrit 36.7L , Mean Corpuscular Volume 84, Mean Corpuscular Hemoglobin 26.3L, Mean Corpuscular Hemoglobin Concent 31.2L, Red Cell Distribution Width 14.9H, Platelet Count 253, Mean Platelet Volume 7.9, Neutrophils (%) (Auto) 74.7, Lymphocytes (%) (Auto) 12.4L, Monocytes (%) (Auto) 9.0, Eosinophils (%) (Auto) 3.0, Basophils (%) (Auto) 0.8, Sodium Level 140, Potassium Level 3.6, Chloride Level 104, Carbon Dioxide Level 27, Anion Gap 9, Blood Urea Nitrogen 20H, Creatinine 2.0H, Estimat Glomerular Filtration Rate , Glucose Level 222H, Calcium Level 9.4, Phosphorus Level 2.2L, Magnesium Level 1.8 Height (Feet): 5 Height (Inches): 5.00 Weight (Pounds): 187 General Appearance: no apparent distress, lethargic Cardiovascular: normal rate Respiratory/Chest: decreased breath sounds Abdomen: soft, other - GT JAVAN RODRIGUEZ July 04, 2017 10:59
--- NOTE | 2017-07-04 11:21 | Pulmonology Progress Note ---
Assessment/Plan Problems: (1) Acute hypoxemic respiratory failure (2) Hypertensive urgency (3) Sepsis (4) Anemia (5) CVA (cerebral infarction) (6) DM (diabetes mellitus) (7) HTN (hypertension) (8) GERD (gastroesophageal reflux disease) (9) diverting colostomy (10) Hypoalbuminemia Assessment/Plan -Optimize pulmonary hygiene/mobilize as tolerated -Titrate down FiO2 to keep SaO2 > 90% -RTC and PRN HHN's -Abx per ID, F/U repeat Cx's -F/U GI recs, monitor H/H, family deciding Re: PEG -Least restrictive diet per [employer], likely will need PEG -Monitor volumes and renal function, mIVF per renal -F/U cards recs -DVT Px: Hep SQ -FC Subjective Allergies: Coded Allergies: No Known Allergies (Verified , 12/29/06) Subjective AFVSS, O2 needs stable No cough, no SOB, no F/C Objective Last 24 Hour Vital Signs Date Time Temp Pulse Resp B/P (MAP) Pulse Ox O2 Delivery O2 Flow Rate FiO2 07/04/17 08:00 93 07/04/17 08:00 97.7 97 17 142/67 97 Nasal Cannula 2.0 97.7 07/04/17 07:37 76 18 100 Nasal Cannula 2.0 28 07/04/17 07:28 73 18 98 Nasal Cannula 2.0 28 07/04/17 07:28 Nasal Cannula 2.0 28 07/04/17 07:28 98 Nasal Cannula 2.0 28 07/04/17 06:28 135/72 07/04/17 05:25 88 139/75 07/04/17 04:00 98.2 81 18 142/79 98 Nasal Cannula 2.0 98.2 07/04/17 04:00 90 07/04/17 01:12 148/88 07/04/17 01:00 83 16 98 Nasal Cannula 2.0 28 07/04/17 01:00 Nasal Cannula 2.0 28 07/04/17 00:00 90 07/04/17 00:00 97.5 89 20 139/75 98 Nasal Cannula 2.0 97.5 07/04/17 00:00 97 07/03/17 21:18 92 150/91 07/03/17 20:00 93 07/03/17 20:00 97.1 84 18 148/82 98 Nasal Cannula 2.0 97.1 07/03/17 19:08 79 18 99 Nasal Cannula 2.0 28 07/03/17 19:08 Nasal Cannula 2.0 28 07/03/17 19:05 Nasal Cannula 2.0 28 07/03/17 19:05 99 Nasal Cannula 2.0 28 07/03/17 17:19 165/87 07/03/17 16:00 92 07/03/17 16:00 97.8 87 20 165/87 95 Nasal Cannula 2.0 97.8 07/03/17 14:00 82 165/92 07/03/17 13:22 82 18 100 Nasal Cannula 2.0 28 07/03/17 13:12 83 18 100 Nasal Cannula 2.0 28 07/03/17 12:00 90 07/03/17 12:00 97.7 87 18 165/92 100 Nasal Cannula 2.0 97.7 07/03/17 11:52 170/79 07/03/17 11:28 98.4 91 18 170/79 98 Nasal Cannula 2.0 98.4 Intake and Output 07/03/17 07/04/17 19:00 07:00 Intake Total 400 ml 1130.0 ml Output Total 3 ml 385 ml Balance 397 ml 745.0 ml Intake Free Water 60 ml 100 ml IV Total 300 ml 710.0 ml Tube Feeding 40 ml 320 ml Output Urine Total 2 ml 385 ml Stool Total 1 ml # Bowel Movements 1 General Appearance: cachetic, other - demented HEENT: normocephalic, atraumatic, anicteric, mucous membranes moist Respiratory/Chest: chest wall non-tender, lungs clear, normal breath sounds, no respiratory distress Cardiovascular: normal peripheral pulses, normal rate, regular rhythm Abdomen: normal bowel sounds, soft, non tender, no organomegaly, non distended , no mass Extremities: no cyanosis, no clubbing, no edema Laboratory Tests 07/04/17 03:20: White Blood Count 8.9, Red Blood Count 4.35L, Hemoglobin 11.5L, Hematocrit 36.7L , Mean Corpuscular Volume 84, Mean Corpuscular Hemoglobin 26.3L, Mean Corpuscular Hemoglobin Concent 31.2L, Red Cell Distribution Width 14.9H, Platelet Count 253, Mean Platelet Volume 7.9, Neutrophils (%) (Auto) 74.7, Lymphocytes (%) (Auto) 12.4L, Monocytes (%) (Auto) 9.0, Eosinophils (%) (Auto) 3.0, Basophils (%) (Auto) 0.8, Sodium Level 140, Potassium Level 3.6, Chloride Level 104, Carbon Dioxide Level 27, Anion Gap 9, Blood Urea Nitrogen 20H, Creatinine 2.0H, Estimat Glomerular Filtration Rate , Glucose Level 222H, Calcium Level 9.4, Phosphorus Level 2.2L, Magnesium Level 1.8 Current Medications Medications (Trade) Dose Ordered Sig/Jared Route PRN Reason Start Time Stop Time Status Last Admin Dose Admin Acetaminophen (Tylenol) 500 mg Q6HR PRN ORAL moderate pain (4-6) 07/01/17 12:00 07/31/17 11:59 Acetaminophen (Tylenol) 650 mg Q4H PRN ORAL Mild Pain/Temp > 100.5 07/01/17 12:00 07/31/17 11:59 07/01/17 21:28 Albuterol/ Ipratropium (Albuterol/ Ipratropium) 3 ml Q4H PRN HHN Shortness of Breath 07/01/17 18:15 07/06/17 18:14 Albuterol/ Ipratropium (Albuterol/ Ipratropium) 3 ml Q6HRT HHN 07/01/17 19:00 07/06/17 18:59 07/04/17 07:37 Dextrose (Dextrose 50%) 25 ml STAT PRN IV Hypoglycemia 07/01/17 11:45 07/31/17 11:44 Dextrose (Dextrose 50%) 50 ml STAT PRN IV Hypoglycemia 07/01/17 11:45 07/31/17 11:44 Dextrose/ Electrolytes 1,000 ml @ 50 mls/hr Q20H IV 07/02/17 13:30 07/31/17 14:59 07/02/17 14:02 Diltiazem HCl (Cardizem) 30 mg Q6HR GT 07/04/17 12:00 08/03/17 05:59 Heparin Sodium (Porcine) (Heparin 5000 units/ml) 5,000 units EVERY 12 HOURS SUBQ 07/01/17 21:00 07/31/17 20:59 07/04/17 10:33 Hydralazine HCl (Apresoline) 25 mg Q6HR ORAL 07/04/17 06:00 08/03/17 05:59 07/04/17 06:28 Multivitamins (Multivitamins) 1 tab DAILY ORAL 07/02/17 09:00 08/01/17 08:59 07/04/17 08:35 Pantoprazole (Protonix) 40 mg DAILY IVP 07/02/17 09:00 08/01/17 08:59 07/04/17 08:34 Piperacillin Sod/ Tazobactam Sod 3.375 gm/Dextrose 110 ml @ 27.5 mls/hr EVERY 12 HOURS IVPB 07/01/17 21:00 07/06/17 20:59 07/04/17 08:35 Potassium Phosphate 20 mm/ Sodium Chloride 281.6667 ml @ 46.944 m... ONCE ONCE IV 07/04/17 12:00 07/04/17 17:59 Quetiapine Fumarate (SEROquel) 25 mg BEDTIME ORAL 07/03/17 21:00 08/02/17 20:59 07/03/17 21:18 Quetiapine Fumarate (SEROquel) 25 mg EVERY 6 HOURS PRN ORAL Agitation 07/03/17 13:15 08/02/17 13:14 ASIF MOORE M.D. July 04, 2017 11:21
[2017-07-04 12:00] VITALS: BP 134/67
[2017-07-04] MEDS ORDERED: Potassium Phosphate 20 MM in NS 275 ML IV ONE (12:00)
[2017-07-04] MEDS: dilTIAZem HCl 30mg tab GT SCH ×3 (12:38→23:10)
[2017-07-04 16:00] VITALS: BP 134/50
--- NOTE | 2017-07-04 17:38 | General Progress Note ---
Assessment/Plan Assessment/Plan (1) Abdominal pain ICD Codes: R10.9 - Unspecified abdominal pain SNOMED: 33047759 (2) diverting colostomy (3) CVA (cerebral infarction) ICD Codes: I63.9 - CVA (cerebral infarction) SNOMED: 516018370 (4) GERD (gastroesophageal reflux disease) ICD Codes: K21.9 - GERD (gastroesophageal reflux disease) SNOMED: 597970098 (5) HTN (hypertension) ICD Codes: I10 - HTN (hypertension) SNOMED: 46692165 (6) Anemia ICD Codes: D64.9 - Anemia SNOMED: 194811347 (7) dysphagia, s/p PEG Assessment/Plan prn transfusions OB stool r/o GI bleed ppi colostomy care abx per ID trend lipase fu labs, iron panel continue TF GT care Subjective Allergies: Coded Allergies: No Known Allergies (Verified , 12/29/06) Subjective Above noted s/p PEG on TF NAD Objective Last 24 Hour Vital Signs Date Time Temp Pulse Resp B/P (MAP) Pulse Ox O2 Delivery O2 Flow Rate FiO2 07/04/17 16:00 98.2 93 18 134/50 99 Nasal Cannula 2.0 98.2 07/04/17 16:00 92 07/04/17 13:54 134/67 07/04/17 13:14 78 18 100 Nasal Cannula 2.0 28 07/04/17 13:03 84 18 97 Nasal Cannula 2.0 28 07/04/17 12:38 88 134/67 07/04/17 12:00 98.5 88 18 134/67 98 Nasal Cannula 2.0 98.5 07/04/17 12:00 81 07/04/17 08:00 93 07/04/17 08:00 97.7 97 17 142/67 97 Nasal Cannula 2.0 97.7 07/04/17 07:37 76 18 100 Nasal Cannula 2.0 28 07/04/17 07:28 73 18 98 Nasal Cannula 2.0 28 07/04/17 07:28 Nasal Cannula 2.0 28 07/04/17 07:28 98 Nasal Cannula 2.0 28 07/04/17 06:28 135/72 07/04/17 05:25 88 139/75 07/04/17 04:00 98.2 81 18 142/79 98 Nasal Cannula 2.0 98.2 07/04/17 04:00 90 07/04/17 01:12 148/88 07/04/17 01:00 83 16 98 Nasal Cannula 2.0 28 07/04/17 01:00 Nasal Cannula 2.0 28 07/04/17 00:00 90 07/04/17 00:00 97.5 89 20 139/75 98 Nasal Cannula 2.0 97.5 07/04/17 00:00 97 07/03/17 21:18 92 150/91 07/03/17 20:00 93 07/03/17 20:00 97.1 84 18 148/82 98 Nasal Cannula 2.0 97.1 07/03/17 19:08 79 18 99 Nasal Cannula 2.0 28 07/03/17 19:08 Nasal Cannula 2.0 28 07/03/17 19:05 Nasal Cannula 2.0 28 07/03/17 19:05 99 Nasal Cannula 2.0 28 Intake and Output 07/03/17 07/04/17 19:00 07:00 Intake Total 400 ml 1130.0 ml Output Total 3 ml 385 ml Balance 397 ml 745.0 ml Intake Free Water 60 ml 100 ml IV Total 300 ml 710.0 ml Tube Feeding 40 ml 320 ml Output Urine Total 2 ml 385 ml Stool Total 1 ml # Bowel Movements 1 Laboratory Tests 07/04/17 03:20: White Blood Count 8.9, Red Blood Count 4.35L, Hemoglobin 11.5L, Hematocrit 36.7L , Mean Corpuscular Volume 84, Mean Corpuscular Hemoglobin 26.3L, Mean Corpuscular Hemoglobin Concent 31.2L, Red Cell Distribution Width 14.9H, Platelet Count 253, Mean Platelet Volume 7.9, Neutrophils (%) (Auto) 74.7, Lymphocytes (%) (Auto) 12.4L, Monocytes (%) (Auto) 9.0, Eosinophils (%) (Auto) 3.0, Basophils (%) (Auto) 0.8, Sodium Level 140, Potassium Level 3.6, Chloride Level 104, Carbon Dioxide Level 27, Anion Gap 9, Blood Urea Nitrogen 20H, Creatinine 2.0H, Estimat Glomerular Filtration Rate , Glucose Level 222H, Calcium Level 9.4, Phosphorus Level 2.2L, Magnesium Level 1.8 Height (Feet): 5 Height (Inches): 5.00 Weight (Pounds): 187 Objective Debilitated WM NCAT supple CTA RRR Soft ND NT, (+) GT , (+) ostomy no edema Keyanna Avelar MD July 04, 2017 17:38
--- NOTE | 2017-07-04 18:15 | General Progress Note ---
Assessment/Plan Problem List: (1) HTN (hypertension) ICD Codes: I10 - HTN (hypertension) SNOMED: 61842381 (2) Sinus tachycardia ICD Codes: R00.0 - Tachycardia, unspecified SNOMED: 07725124 (3) Oxygen desaturation ICD Codes: R09.02 - Hypoxemia SNOMED: 027501665 (4) Bifascicular bundle branch block ICD Codes: I45.2 - Bifascicular block SNOMED: 19568692 (5) DM (diabetes mellitus) ICD Codes: E11.9 - DM (diabetes mellitus) SNOMED: 41971601 (6) BiPAP (biphasic positive airway pressure) dependence ICD Codes: Z99.89 - Dependence on other enabling machines and devices SNOMED: 264239742 (7) diverting colostomy (8) Sepsis ICD Codes: A41.9 - Sepsis, unspecified organism SNOMED: 47523835 (9) Oxygen desaturation ICD Codes: R09.02 - Hypoxemia SNOMED: 791660595 Status: progressing Assessment/Plan pna sepsis hypoxia improving h/o megacolon reviewed chart and labs dm and htn Subjective ROS Limited/Unobtainable: Yes Allergies: Coded Allergies: No Known Allergies (Verified , 12/29/06) Objective Last 24 Hour Vital Signs Date Time Temp Pulse Resp B/P (MAP) Pulse Ox O2 Delivery O2 Flow Rate FiO2 07/04/17 16:00 98.2 93 18 134/50 99 Nasal Cannula 2.0 98.2 07/04/17 16:00 92 07/04/17 13:54 134/67 07/04/17 13:14 78 18 100 Nasal Cannula 2.0 28 07/04/17 13:03 84 18 97 Nasal Cannula 2.0 28 07/04/17 12:38 88 134/67 07/04/17 12:00 98.5 88 18 134/67 98 Nasal Cannula 2.0 98.5 07/04/17 12:00 81 07/04/17 08:00 93 07/04/17 08:00 97.7 97 17 142/67 97 Nasal Cannula 2.0 97.7 07/04/17 07:37 76 18 100 Nasal Cannula 2.0 28 07/04/17 07:28 73 18 98 Nasal Cannula 2.0 28 07/04/17 07:28 Nasal Cannula 2.0 28 07/04/17 07:28 98 Nasal Cannula 2.0 28 07/04/17 06:28 135/72 07/04/17 05:25 88 139/75 07/04/17 04:00 98.2 81 18 142/79 98 Nasal Cannula 2.0 98.2 07/04/17 04:00 90 07/04/17 01:12 148/88 07/04/17 01:00 83 16 98 Nasal Cannula 2.0 28 07/04/17 01:00 Nasal Cannula 2.0 28 07/04/17 00:00 90 07/04/17 00:00 97.5 89 20 139/75 98 Nasal Cannula 2.0 97.5 07/04/17 00:00 97 07/03/17 21:18 92 150/91 07/03/17 20:00 93 07/03/17 20:00 97.1 84 18 148/82 98 Nasal Cannula 2.0 97.1 07/03/17 19:08 79 18 99 Nasal Cannula 2.0 28 07/03/17 19:08 Nasal Cannula 2.0 28 07/03/17 19:05 Nasal Cannula 2.0 28 07/03/17 19:05 99 Nasal Cannula 2.0 28 Intake and Output 07/03/17 07/04/17 19:00 07:00 Intake Total 400 ml 1130.0 ml Output Total 3 ml 385 ml Balance 397 ml 745.0 ml Intake Free Water 60 ml 100 ml IV Total 300 ml 710.0 ml Tube Feeding 40 ml 320 ml Output Urine Total 2 ml 385 ml Stool Total 1 ml # Bowel Movements 1 Laboratory Tests 07/04/17 03:20: White Blood Count 8.9, Red Blood Count 4.35L, Hemoglobin 11.5L, Hematocrit 36.7L , Mean Corpuscular Volume 84, Mean Corpuscular Hemoglobin 26.3L, Mean Corpuscular Hemoglobin Concent 31.2L, Red Cell Distribution Width 14.9H, Platelet Count 253, Mean Platelet Volume 7.9, Neutrophils (%) (Auto) 74.7, Lymphocytes (%) (Auto) 12.4L, Monocytes (%) (Auto) 9.0, Eosinophils (%) (Auto) 3.0, Basophils (%) (Auto) 0.8, Sodium Level 140, Potassium Level 3.6, Chloride Level 104, Carbon Dioxide Level 27, Anion Gap 9, Blood Urea Nitrogen 20H, Creatinine 2.0H, Estimat Glomerular Filtration Rate , Glucose Level 222H, Calcium Level 9.4, Phosphorus Level 2.2L, Magnesium Level 1.8 Height (Feet): 5 Height (Inches): 5.00 Weight (Pounds): 187 Cardiovascular: normal rate Respiratory/Chest: lungs clear Abdomen: soft Rene Sin MD July 04, 2017 18:15
[2017-07-04 20:00] VITALS: BP 138/76
[2017-07-05] VITALS: BP 134/74
[2017-07-05] MEDS: HydrALAZINE 25mg tab ORAL SCH ×4 (00:09→17:39)
[2017-07-05] MEDS: Albuterol/Ipratropium 3ml neb HHN SCH ×4 (01:00→20:41)
[2017-07-05 04:00] VITALS: BP 138/69
[2017-07-05] MEDS: dilTIAZem HCl 30mg tab GT SCH ×3 (05:40→17:39)
[2017-07-05 08:00] VITALS: BP 139/64
[2017-07-05] MEDS ORDERED: Pantoprazole Inj IVP SCH (09:00)
[2017-07-05] MEDS: Heparin 5000 units/ml inj SUBQ SCH ×2 (09:39→20:29)
[2017-07-05] MEDS: Piperacillin/Tazobactam 3.375 GM in D5W 110 ML IVPB SCH ×2 (09:40→20:39)
--- NOTE | 2017-07-05 11:15 | Infectious Diseases Prog Note ---
Assessment/Plan Assessment/Plan A: Sepsis improving Pneumonia Bacteremia with CoANS contamination Respiratory failure Renal failure Dementia Dysphagia Gastrostomy status s/p colostomy P; Continue Zosyn Subjective ROS Limited/Unobtainable: Yes Allergies: Coded Allergies: No Known Allergies (Verified , 12/29/06) Objective Vital Signs Last 24 Hour Vital Signs Date Time Temp Pulse Resp B/P (MAP) Pulse Ox O2 Delivery O2 Flow Rate FiO2 07/05/17 08:16 89 20 99 Nasal Cannula 2.0 28 07/05/17 08:06 Nasal Cannula 2.0 28 07/05/17 08:06 87 16 98 Nasal Cannula 2.0 28 07/05/17 08:06 98 Nasal Cannula 2.0 28 07/05/17 08:00 84 07/05/17 08:00 98.1 87 22 139/64 97 Nasal Cannula 2.0 98.1 07/05/17 06:08 140/72 07/05/17 05:40 87 138/69 07/05/17 04:00 87 07/05/17 04:00 98.2 89 22 138/69 99 Nasal Cannula 2.0 98.2 07/05/17 01:14 82 18 98 Nasal Cannula 2.0 28 07/05/17 01:14 Nasal Cannula 2.0 28 07/05/17 00:09 136/75 07/05/17 00:00 97.9 99 20 134/74 99 Nasal Cannula 2.0 97.9 07/05/17 00:00 79 07/04/17 23:10 84 142/88 07/04/17 20:00 85 07/04/17 20:00 98.4 99 18 138/76 98 Nasal Cannula 2.0 98.4 07/04/17 19:44 Nasal Cannula 2.0 28 07/04/17 19:43 98 Nasal Cannula 2.0 28 07/04/17 19:43 Nasal Cannula 2.0 28 07/04/17 19:43 77 18 98 Nasal Cannula 2.0 28 07/04/17 18:39 134/50 07/04/17 18:39 92 134/50 07/04/17 16:00 98.2 93 18 134/50 99 Nasal Cannula 2.0 98.2 07/04/17 16:00 92 07/04/17 13:54 134/67 5/12/18 13:14 78 18 100 Nasal Cannula 2.0 28 07/04/17 13:03 84 18 97 Nasal Cannula 2.0 28 07/04/17 12:38 88 134/67 07/04/17 12:00 98.5 88 18 134/67 98 Nasal Cannula 2.0 98.5 07/04/17 12:00 81 Height (Feet): 5 Height (Inches): 5.00 Weight (Pounds): 187 General Appearance: no acute distress HEENT: mucous membranes moist Respiratory/Chest: lungs clear Cardiovascular: normal rate Abdomen: soft, non tender, other - GT feding, s/p colostomy Extremities: no edema Neurologic/Psychiatric: alert, responsive, disoriented Current Medications Medications (Trade) Dose Ordered Sig/Jared Route PRN Reason Start Time Stop Time Status Last Admin Dose Admin Acetaminophen (Tylenol) 500 mg Q6HR PRN ORAL moderate pain (4-6) 07/01/17 12:00 07/31/17 11:59 Acetaminophen (Tylenol) 650 mg Q4H PRN ORAL Mild Pain/Temp > 100.5 07/01/17 12:00 07/31/17 11:59 07/01/17 21:28 Albuterol/ Ipratropium (Albuterol/ Ipratropium) 3 ml Q4H PRN HHN Shortness of Breath 07/01/17 18:15 07/06/17 18:14 Albuterol/ Ipratropium (Albuterol/ Ipratropium) 3 ml Q6HRT HHN 07/04/17 19:00 07/06/17 18:59 07/05/17 08:06 Dextrose (Dextrose 50%) 25 ml STAT PRN IV Hypoglycemia 07/01/17 11:45 07/31/17 11:44 Dextrose (Dextrose 50%) 50 ml STAT PRN IV Hypoglycemia 07/01/17 11:45 07/31/17 11:44 Dextrose/ Electrolytes 1,000 ml @ 50 mls/hr Q20H IV 07/02/17 13:30 07/31/17 14:59 07/04/17 20:17 Diltiazem HCl (Cardizem) 30 mg Q6HR GT 07/04/17 12:00 08/03/17 05:59 07/05/17 05:40 Heparin Sodium (Porcine) (Heparin 5000 units/ml) 5,000 units EVERY 12 HOURS SUBQ 07/04/17 21:00 07/31/17 20:59 07/05/17 09:39 Hydralazine HCl (Apresoline) 25 mg Q6HR ORAL 07/04/17 18:00 08/03/17 17:59 07/05/17 06:08 Multivitamins (Multivitamins) 1 tab DAILY ORAL 07/05/17 09:00 08/04/17 08:59 07/05/17 09:40 Pantoprazole (Protonix) 40 mg DAILY IVP 07/05/17 09:00 08/04/17 08:59 07/05/17 09:39 Piperacillin Sod/ Tazobactam Sod 3.375 gm/Dextrose 110 ml @ 27.5 mls/hr EVERY 12 HOURS IVPB 07/01/17 21:00 07/06/17 23:59 07/05/17 09:40 Quetiapine Fumarate (SEROquel) 25 mg BEDTIME ORAL 07/04/17 21:00 08/02/17 20:59 07/04/17 20:17 Quetiapine Fumarate (SEROquel) 25 mg EVERY 6 HOURS PRN ORAL Agitation 07/03/17 13:15 08/02/17 13:14 HORTENSIA MALHOTRA July 05, 2017 11:15
[2017-07-05 12:04] VITALS: BP 130/76
--- NOTE | 2017-07-05 12:27 | Pulmonology Progress Note ---
Assessment/Plan Problems: (1) Acute hypoxemic respiratory failure (2) Hypertensive urgency (3) Sepsis (4) Anemia (5) CVA (cerebral infarction) (6) DM (diabetes mellitus) (7) HTN (hypertension) (8) GERD (gastroesophageal reflux disease) (9) diverting colostomy (10) Hypoalbuminemia Assessment/Plan -Optimize pulmonary hygiene/mobilize as tolerated -Titrate down FiO2 to keep SaO2 > 90% -RTC and PRN HHN's -Abx per ID -F/U GI recs, monitor H/H, family deciding Re: PEG -Least restrictive diet per [facility], likely will need PEG -Monitor volumes and renal function, mIVF per renal -F/U cards recs -DVT Px: Hep SQ -FC Subjective Allergies: Coded Allergies: No Known Allergies (Verified , 12/29/06) Subjective AFVSS, O2 needs stable No cough, no SOB, no F/C Objective Last 24 Hour Vital Signs Date Time Temp Pulse Resp B/P (MAP) Pulse Ox O2 Delivery O2 Flow Rate FiO2 07/05/17 12:04 98.9 99 21 130/76 94 Nasal Cannula 2.0 98.9 07/05/17 12:00 97 07/05/17 08:16 89 20 99 Nasal Cannula 2.0 28 07/05/17 08:06 Nasal Cannula 2.0 28 07/05/17 08:06 87 16 98 Nasal Cannula 2.0 28 07/05/17 08:06 98 Nasal Cannula 2.0 28 07/05/17 08:00 84 07/05/17 08:00 98.1 87 22 139/64 97 Nasal Cannula 2.0 98.1 07/05/17 06:08 140/72 07/05/17 05:40 87 138/69 07/05/17 04:00 87 07/05/17 04:00 98.2 89 22 138/69 99 Nasal Cannula 2.0 98.2 07/05/17 01:14 82 18 98 Nasal Cannula 2.0 28 07/05/17 01:14 Nasal Cannula 2.0 28 07/05/17 00:09 136/75 07/05/17 00:00 97.9 99 20 134/74 99 Nasal Cannula 2.0 97.9 07/05/17 00:00 79 07/04/17 23:10 84 142/88 07/04/17 20:00 85 07/04/17 20:00 98.4 99 18 138/76 98 Nasal Cannula 2.0 98.4 07/04/17 19:44 Nasal Cannula 2.0 28 07/04/17 19:43 98 Nasal Cannula 2.0 28 07/04/17 19:43 Nasal Cannula 2.0 28 07/04/17 19:43 77 18 98 Nasal Cannula 2.0 28 07/04/17 18:39 134/50 07/04/17 18:39 92 134/50 07/04/17 16:00 98.2 93 18 134/50 99 Nasal Cannula 2.0 98.2 07/04/17 16:00 92 07/04/17 13:54 134/67 07/04/17 13:14 78 18 100 Nasal Cannula 2.0 28 07/04/17 13:03 84 18 97 Nasal Cannula 2.0 28 07/04/17 12:38 88 134/67 Intake and Output 07/04/17 07/05/17 19:00 07:00 Intake Total 1097.776 ml 1473.0 ml Output Total 150 ml 165 ml Balance 947.776 ml 1308.0 ml Intake Free Water 100 ml 100 ml IV Total 497.776 ml 593.0 ml Tube Feeding 500 ml 780 ml Output Urine Total 150 ml 165 ml # Bowel Movements 1 1 General Appearance: no acute distress, cachetic HEENT: normocephalic, atraumatic, anicteric Respiratory/Chest: chest wall non-tender, lungs clear, normal breath sounds, no respiratory distress Cardiovascular: normal peripheral pulses, normal rate, regular rhythm Abdomen: normal bowel sounds, soft, non tender, no organomegaly, non distended , other Extremities: no cyanosis, no clubbing, no edema Current Medications Medications (Trade) Dose Ordered Sig/Jared Route PRN Reason Start Time Stop Time Status Last Admin Dose Admin Acetaminophen (Tylenol) 500 mg Q6HR PRN ORAL moderate pain (4-6) 07/01/17 12:00 07/31/17 11:59 Acetaminophen (Tylenol) 650 mg Q4H PRN ORAL Mild Pain/Temp > 100.5 07/01/17 12:00 07/31/17 11:59 07/01/17 21:28 Albuterol/ Ipratropium (Albuterol/ Ipratropium) 3 ml Q4H PRN HHN Shortness of Breath 07/01/17 18:15 07/06/17 18:14 Albuterol/ Ipratropium (Albuterol/ Ipratropium) 3 ml Q6HRT HHN 07/04/17 19:00 07/06/17 18:59 07/05/17 08:06 Dextrose (Dextrose 50%) 25 ml STAT PRN IV Hypoglycemia 07/01/17 11:45 07/31/17 11:44 Dextrose (Dextrose 50%) 50 ml STAT PRN IV Hypoglycemia 07/01/17 11:45 07/31/17 11:44 Dextrose/ Electrolytes 1,000 ml @ 50 mls/hr Q20H IV 07/02/17 13:30 07/31/17 14:59 07/04/17 20:17 Diltiazem HCl (Cardizem) 30 mg Q6HR GT 07/04/17 12:00 08/03/17 05:59 07/05/17 05:40 Heparin Sodium (Porcine) (Heparin 5000 units/ml) 5,000 units EVERY 12 HOURS SUBQ 07/04/17 21:00 07/31/17 20:59 07/05/17 09:39 Hydralazine HCl (Apresoline) 25 mg Q6HR ORAL 07/04/17 18:00 08/03/17 17:59 07/05/17 06:08 Multivitamins (Multivitamins) 1 tab DAILY ORAL 07/05/17 09:00 08/04/17 08:59 07/05/17 09:40 Pantoprazole (Protonix) 40 mg DAILY IVP 07/05/17 09:00 08/04/17 08:59 07/05/17 09:39 Piperacillin Sod/ Tazobactam Sod 3.375 gm/Dextrose 110 ml @ 27.5 mls/hr EVERY 12 HOURS IVPB 07/01/17 21:00 07/06/17 23:59 07/05/17 09:40 Quetiapine Fumarate (SEROquel) 25 mg BEDTIME ORAL 07/04/17 21:00 08/02/17 20:59 07/04/17 20:17 Quetiapine Fumarate (SEROquel) 25 mg EVERY 6 HOURS PRN ORAL Agitation 07/03/17 13:15 08/02/17 13:14 ASIF MOORE M.D. July 05, 2017 12:27
--- NOTE | 2017-07-05 12:30 | Pulmonology Progress Note ---
Assessment/Plan Problems: (1) Acute hypoxemic respiratory failure (2) Hypertensive urgency (3) Sepsis (4) Anemia (5) CVA (cerebral infarction) (6) DM (diabetes mellitus) (7) HTN (hypertension) (8) GERD (gastroesophageal reflux disease) (9) diverting colostomy (10) Hypoalbuminemia (11) PEG (percutaneous endoscopic gastrostomy) status Assessment/Plan -Optimize pulmonary hygiene/mobilize as tolerated -Titrate down FiO2 to keep SaO2 > 90% -RTC and PRN HHN's -Abx per ID -F/U GI recs, monitor H/H -GTF's as tolerated -Monitor volumes and renal function, mIVF per renal -F/U cards recs -DVT Px: Hep SQ -FC Subjective Allergies: Coded Allergies: No Known Allergies (Verified , 12/29/06) Subjective AFVSS, O2 needs stable No cough, no SOB, no F/C S/p PEG Objective Last 24 Hour Vital Signs Date Time Temp Pulse Resp B/P (MAP) Pulse Ox O2 Delivery O2 Flow Rate FiO2 07/05/17 12:04 98.9 99 21 130/76 94 Nasal Cannula 2.0 98.9 07/05/17 12:00 97 07/05/17 08:16 89 20 99 Nasal Cannula 2.0 28 07/05/17 08:06 Nasal Cannula 2.0 28 07/05/17 08:06 87 16 98 Nasal Cannula 2.0 28 07/05/17 08:06 98 Nasal Cannula 2.0 28 07/05/17 08:00 84 07/05/17 08:00 98.1 87 22 139/64 97 Nasal Cannula 2.0 98.1 07/05/17 06:08 140/72 07/05/17 05:40 87 138/69 07/05/17 04:00 87 07/05/17 04:00 98.2 89 22 138/69 99 Nasal Cannula 2.0 98.2 07/05/17 01:14 82 18 98 Nasal Cannula 2.0 28 07/05/17 01:14 Nasal Cannula 2.0 28 07/05/17 00:09 136/75 07/05/17 00:00 97.9 99 20 134/74 99 Nasal Cannula 2.0 97.9 07/05/17 00:00 79 07/04/17 23:10 84 142/88 07/04/17 20:00 85 07/04/17 20:00 98.4 99 18 138/76 98 Nasal Cannula 2.0 98.4 07/04/17 19:44 Nasal Cannula 2.0 28 07/04/17 19:43 98 Nasal Cannula 2.0 28 07/04/17 19:43 Nasal Cannula 2.0 28 07/04/17 19:43 77 18 98 Nasal Cannula 2.0 28 07/04/17 18:39 134/50 07/04/17 18:39 92 134/50 07/04/17 16:00 98.2 93 18 134/50 99 Nasal Cannula 2.0 98.2 07/04/17 16:00 92 07/04/17 13:54 134/67 07/04/17 13:14 78 18 100 Nasal Cannula 2.0 28 07/04/17 13:03 84 18 97 Nasal Cannula 2.0 28 07/04/17 12:38 88 134/67 Intake and Output 07/04/17 07/05/17 19:00 07:00 Intake Total 1097.776 ml 1473.0 ml Output Total 150 ml 165 ml Balance 947.776 ml 1308.0 ml Intake Free Water 100 ml 100 ml IV Total 497.776 ml 593.0 ml Tube Feeding 500 ml 780 ml Output Urine Total 150 ml 165 ml # Bowel Movements 1 1 General Appearance: no acute distress, cachetic HEENT: normocephalic, atraumatic, anicteric Respiratory/Chest: chest wall non-tender, lungs clear, normal breath sounds, no respiratory distress Cardiovascular: normal peripheral pulses, normal rate, regular rhythm Abdomen: normal bowel sounds, soft, non tender, no organomegaly, non distended , other - GT Extremities: no cyanosis, no clubbing, no edema Current Medications Medications (Trade) Dose Ordered Sig/Jared Route PRN Reason Start Time Stop Time Status Last Admin Dose Admin Acetaminophen (Tylenol) 500 mg Q6HR PRN ORAL moderate pain (4-6) 07/01/17 12:00 07/31/17 11:59 Acetaminophen (Tylenol) 650 mg Q4H PRN ORAL Mild Pain/Temp > 100.5 07/01/17 12:00 07/31/17 11:59 07/01/17 21:28 Albuterol/ Ipratropium (Albuterol/ Ipratropium) 3 ml Q4H PRN HHN Shortness of Breath 07/01/17 18:15 07/06/17 18:14 Albuterol/ Ipratropium (Albuterol/ Ipratropium) 3 ml Q6HRT HHN 07/04/17 19:00 07/06/17 18:59 07/05/17 08:06 Dextrose (Dextrose 50%) 25 ml STAT PRN IV Hypoglycemia 07/01/17 11:45 07/31/17 11:44 Dextrose (Dextrose 50%) 50 ml STAT PRN IV Hypoglycemia 07/01/17 11:45 07/31/17 11:44 Dextrose/ Electrolytes 1,000 ml @ 50 mls/hr Q20H IV 07/02/17 13:30 07/31/17 14:59 07/04/17 20:17 Diltiazem HCl (Cardizem) 30 mg Q6HR GT 07/04/17 12:00 08/03/17 05:59 07/05/17 05:40 Heparin Sodium (Porcine) (Heparin 5000 units/ml) 5,000 units EVERY 12 HOURS SUBQ 07/04/17 21:00 07/31/17 20:59 07/05/17 09:39 Hydralazine HCl (Apresoline) 25 mg Q6HR ORAL 07/04/17 18:00 08/03/17 17:59 07/05/17 06:08 Multivitamins (Multivitamins) 1 tab DAILY ORAL 07/05/17 09:00 08/04/17 08:59 07/05/17 09:40 Pantoprazole (Protonix) 40 mg DAILY IVP 07/05/17 09:00 08/04/17 08:59 07/05/17 09:39 Piperacillin Sod/ Tazobactam Sod 3.375 gm/Dextrose 110 ml @ 27.5 mls/hr EVERY 12 HOURS IVPB 07/01/17 21:00 07/06/17 23:59 07/05/17 09:40 Quetiapine Fumarate (SEROquel) 25 mg BEDTIME ORAL 07/04/17 21:00 08/02/17 20:59 07/04/17 20:17 Quetiapine Fumarate (SEROquel) 25 mg EVERY 6 HOURS PRN ORAL Agitation 07/03/17 13:15 08/02/17 13:14 ASIF MOORE M.D. July 05, 2017 12:30
--- NOTE | 2017-07-05 13:38 | Nephrology Progress Note ---
Assessment/Plan Problem List: (1) CRI (chronic renal insufficiency) (2) Hypertensive urgency (3) Acute hypoxemic respiratory failure (4) Anemia (5) Hypoalbuminemia Assessment - Hypertensive urgency on presentation - DM and Nephropathy - CRI (chronic renal insufficiency) Cr 2.1....2.0 - BiPAP (biphasic positive airway pressure) as needed - Acute hypoxemic respiratory failure - Oxygen desaturation - Bifascicular bundle branch block - HTN (hypertension) - CVA (cerebral infarction) - GERD (gastroesophageal reflux disease) - diverting colostomy - Diverticulitis Plan Plan: no labs today Antibiotics- monitor renal parameters- adjust bp meds- pulmonary support Phos supp 2D Echo Normal left ventricular chamber size, systolic function and wall motion. Left ventricular ejection fraction estimated to be 55-60% to extend visualized. Avoid nephrotoxics per orders Subjective ROS Limited/Unobtainable: No Constitutional: Reports: malaise Objective Objective Last 24 Hour Vital Signs Date Time Temp Pulse Resp B/P (MAP) Pulse Ox O2 Delivery O2 Flow Rate FiO2 07/05/17 12:54 101 18 99 Nasal Cannula 2.0 28 07/05/17 12:44 99 18 96 Nasal Cannula 2.0 28 07/05/17 12:04 98.9 99 21 130/76 94 Nasal Cannula 2.0 98.9 07/05/17 12:00 97 07/05/17 08:16 89 20 99 Nasal Cannula 2.0 28 07/05/17 08:06 Nasal Cannula 2.0 28 07/05/17 08:06 87 16 98 Nasal Cannula 2.0 28 07/05/17 08:06 98 Nasal Cannula 2.0 28 07/05/17 08:00 84 07/05/17 08:00 98.1 87 22 139/64 97 Nasal Cannula 2.0 98.1 07/05/17 06:08 140/72 07/05/17 05:40 87 138/69 07/05/17 04:00 87 07/05/17 04:00 98.2 89 22 138/69 99 Nasal Cannula 2.0 98.2 07/05/17 01:14 82 18 98 Nasal Cannula 2.0 28 07/05/17 01:14 Nasal Cannula 2.0 28 07/05/17 00:09 136/75 07/05/17 00:00 97.9 99 20 134/74 99 Nasal Cannula 2.0 97.9 07/05/17 00:00 79 07/04/17 23:10 84 142/88 07/04/17 20:00 85 07/04/17 20:00 98.4 99 18 138/76 98 Nasal Cannula 2.0 98.4 07/04/17 19:44 Nasal Cannula 2.0 28 07/04/17 19:43 98 Nasal Cannula 2.0 28 07/04/17 19:43 Nasal Cannula 2.0 28 07/04/17 19:43 77 18 98 Nasal Cannula 2.0 28 07/04/17 18:39 134/50 07/04/17 18:39 92 134/50 07/04/17 16:00 98.2 93 18 134/50 99 Nasal Cannula 2.0 98.2 07/04/17 16:00 92 07/04/17 13:54 134/67 Intake and Output 07/04/17 07/05/17 19:00 07:00 Intake Total 1097.776 ml 1473.0 ml Output Total 150 ml 165 ml Balance 947.776 ml 1308.0 ml Intake Free Water 100 ml 100 ml IV Total 497.776 ml 593.0 ml Tube Feeding 500 ml 780 ml Output Urine Total 150 ml 165 ml # Bowel Movements 1 1 Height (Feet): 5 Height (Inches): 5.00 Weight (Pounds): 187 General Appearance: no apparent distress Cardiovascular: tachycardia Respiratory/Chest: decreased breath sounds Abdomen: soft JAVAN RODRIGUEZ July 05, 2017 13:38
--- NOTE | 2017-07-05 14:27 | General Progress Note ---
Assessment/Plan Assessment/Plan (1) Abdominal pain ICD Codes: R10.9 - Unspecified abdominal pain SNOMED: 81260428 (2) diverting colostomy (3) CVA (cerebral infarction) ICD Codes: I63.9 - CVA (cerebral infarction) SNOMED: 647740702 (4) GERD (gastroesophageal reflux disease) ICD Codes: K21.9 - GERD (gastroesophageal reflux disease) SNOMED: 331826053 (5) HTN (hypertension) ICD Codes: I10 - HTN (hypertension) SNOMED: 10535388 (6) Anemia ICD Codes: D64.9 - Anemia SNOMED: 393451856 (7) dysphagia, s/p PEG Assessment/Plan prn transfusions OB stool r/o GI bleed ppi colostomy care abx per ID trend lipase fu labs, iron panel continue TF GT care Subjective Allergies: Coded Allergies: No Known Allergies (Verified , 12/29/06) Subjective Above noted s/p PEG on TF No events Objective Last 24 Hour Vital Signs Date Time Temp Pulse Resp B/P (MAP) Pulse Ox O2 Delivery O2 Flow Rate FiO2 07/05/17 13:51 130/76 07/05/17 13:50 101 130/76 07/05/17 12:54 101 18 99 Nasal Cannula 2.0 28 07/05/17 12:44 99 18 96 Nasal Cannula 2.0 28 07/05/17 12:04 98.9 99 21 130/76 94 Nasal Cannula 2.0 98.9 07/05/17 12:00 97 07/05/17 08:16 89 20 99 Nasal Cannula 2.0 28 07/05/17 08:06 Nasal Cannula 2.0 28 07/05/17 08:06 87 16 98 Nasal Cannula 2.0 28 07/05/17 08:06 98 Nasal Cannula 2.0 28 07/05/17 08:00 84 07/05/17 08:00 98.1 87 22 139/64 97 Nasal Cannula 2.0 98.1 07/05/17 06:08 140/72 07/05/17 05:40 87 138/69 07/05/17 04:00 87 07/05/17 04:00 98.2 89 22 138/69 99 Nasal Cannula 2.0 98.2 07/05/17 01:14 82 18 98 Nasal Cannula 2.0 28 07/05/17 01:14 Nasal Cannula 2.0 28 07/05/17 00:09 136/75 07/05/17 00:00 97.9 99 20 134/74 99 Nasal Cannula 2.0 97.9 07/05/17 00:00 79 07/04/17 23:10 84 142/88 07/04/17 20:00 85 07/04/17 20:00 98.4 99 18 138/76 98 Nasal Cannula 2.0 98.4 07/04/17 19:44 Nasal Cannula 2.0 28 07/04/17 19:43 98 Nasal Cannula 2.0 28 07/04/17 19:43 Nasal Cannula 2.0 28 07/04/17 19:43 77 18 98 Nasal Cannula 2.0 28 07/04/17 18:39 134/50 07/04/17 18:39 92 134/50 07/04/17 16:00 98.2 93 18 134/50 99 Nasal Cannula 2.0 98.2 07/04/17 16:00 92 Intake and Output 07/04/17 07/05/17 19:00 07:00 Intake Total 1097.776 ml 1473.0 ml Output Total 150 ml 165 ml Balance 947.776 ml 1308.0 ml Intake Free Water 100 ml 100 ml IV Total 497.776 ml 593.0 ml Tube Feeding 500 ml 780 ml Output Urine Total 150 ml 165 ml # Bowel Movements 1 1 Laboratory Tests 07/05/17 03:20: C-Reactive Protein, Quantitative [Pending] Height (Feet): 5 Height (Inches): 5.00 Weight (Pounds): 187 Objective Debilitated WM NCAT supple CTA RRR Soft ND NT, (+) GT , (+) ostomy no edema Keyanna Avelar MD July 05, 2017 14:27
[2017-07-05 16:00] VITALS: BP 149/70
[2017-07-05] MEDS: D5 1/2NS w/KCL 10meq 1,000 ML IV SCH (16:07)
[2017-07-05] MEDS ORDERED: NS 275ml ONE (16:26)
[2017-07-05] MEDS ORDERED: Acetaminophen 500mg (ES) tab ORAL PRN (18:00)
[2017-07-05] MEDS ORDERED: Albuterol/Ipratropium 3ml neb HHN PRN (18:15)
[2017-07-05 20:00] VITALS: BP 127/78
--- NOTE | 2017-07-05 21:12 | General Progress Note ---
Assessment/Plan Problem List: (1) HTN (hypertension) ICD Codes: I10 - HTN (hypertension) SNOMED: 59106722 (2) Sinus tachycardia ICD Codes: R00.0 - Tachycardia, unspecified SNOMED: 77759445 (3) Oxygen desaturation ICD Codes: R09.02 - Hypoxemia SNOMED: 987374261 (4) Bifascicular bundle branch block ICD Codes: I45.2 - Bifascicular block SNOMED: 48459572 (5) DM (diabetes mellitus) ICD Codes: E11.9 - DM (diabetes mellitus) SNOMED: 43219945 (6) BiPAP (biphasic positive airway pressure) dependence ICD Codes: Z99.89 - Dependence on other enabling machines and devices SNOMED: 453595769 (7) diverting colostomy (8) Sepsis ICD Codes: A41.9 - Sepsis, unspecified organism SNOMED: 71676494 (9) Oxygen desaturation ICD Codes: R09.02 - Hypoxemia SNOMED: 831106231 Status: progressing Assessment/Plan off bipap hypoxia resolved clinically improving reviewed chart and labs dm and htn Subjective ROS Limited/Unobtainable: Yes Allergies: Coded Allergies: No Known Allergies (Verified , 12/29/06) Objective Last 24 Hour Vital Signs Date Time Temp Pulse Resp B/P (MAP) Pulse Ox O2 Delivery O2 Flow Rate FiO2 07/05/17 19:29 99 20 99 Nasal Cannula 2.0 28 07/05/17 19:24 99 Nasal Cannula 2.0 28 07/05/17 19:24 Nasal Cannula 2.0 28 07/05/17 19:24 96 18 97 Nasal Cannula 2.0 07/05/17 17:39 149/70 07/05/17 17:39 98 149/70 07/05/17 16:00 98 07/05/17 16:00 98.1 99 20 149/70 96 Nasal Cannula 2.0 98.1 07/05/17 13:51 130/76 07/05/17 13:50 101 130/76 07/05/17 12:54 101 18 99 Nasal Cannula 2.0 28 07/05/17 12:44 99 18 96 Nasal Cannula 2.0 28 07/05/17 12:04 98.9 99 21 130/76 94 Nasal Cannula 2.0 98.9 07/05/17 12:00 97 07/05/17 08:16 89 20 99 Nasal Cannula 2.0 28 07/05/17 08:06 Nasal Cannula 2.0 28 07/05/17 08:06 87 16 98 Nasal Cannula 2.0 28 07/05/17 08:06 98 Nasal Cannula 2.0 28 07/05/17 08:00 84 07/05/17 08:00 98.1 87 22 139/64 97 Nasal Cannula 2.0 98.1 07/05/17 06:08 140/72 07/05/17 05:40 87 138/69 07/05/17 04:00 87 07/05/17 04:00 98.2 89 22 138/69 99 Nasal Cannula 2.0 98.2 07/05/17 01:14 82 18 98 Nasal Cannula 2.0 28 07/05/17 01:14 Nasal Cannula 2.0 28 07/05/17 00:09 136/75 07/05/17 00:00 97.9 99 20 134/74 99 Nasal Cannula 2.0 97.9 07/05/17 00:00 79 07/04/17 23:10 84 142/88 Intake and Output 07/04/17 07/05/17 19:00 07:00 Intake Total 1097.776 ml 1473.0 ml Output Total 150 ml 165 ml Balance 947.776 ml 1308.0 ml Intake Free Water 100 ml 100 ml IV Total 497.776 ml 593.0 ml Tube Feeding 500 ml 780 ml Output Urine Total 150 ml 165 ml # Bowel Movements 1 1 Laboratory Tests 07/05/17 15:45: Lactic Acid Level 1.30, C-Reactive Protein, Quantitative 34.5H Height (Feet): 5 Height (Inches): 5.00 Weight (Pounds): 187 Cardiovascular: normal rate Abdomen: non tender Rene Sin MD July 05, 2017 21:12
[2017-07-06] VITALS: BP 117/71
[2017-07-06] MEDS: dilTIAZem HCl 30mg tab GT SCH ×3 (00:32→12:04)
[2017-07-06] MEDS: Albuterol/Ipratropium 3ml neb HHN SCH ×3 (01:26→12:48)
[2017-07-06 04:00] VITALS: BP 140/71
[2017-07-06] MEDS: HydrALAZINE 25mg tab ORAL SCH ×3 (05:22→12:05)
[2017-07-06 08:00] VITALS: BP 167/72
[2017-07-06] MEDS: Piperacillin/Tazobactam 3.375 GM in D5W 110 ML IVPB SCH (08:33)
[2017-07-06] MEDS: Heparin 5000 units/ml inj SUBQ SCH (08:34)
--- NOTE | 2017-07-06 08:44 | Pulmonology Progress Note ---
Assessment/Plan Problems: (1) Acute hypoxemic respiratory failure (2) Hypertensive urgency (3) Sepsis (4) Anemia (5) CVA (cerebral infarction) (6) DM (diabetes mellitus) (7) HTN (hypertension) (8) GERD (gastroesophageal reflux disease) (9) diverting colostomy (10) Hypoalbuminemia (11) PEG (percutaneous endoscopic gastrostomy) status Assessment/Plan -Optimize pulmonary hygiene/mobilize as tolerated -Titrate down FiO2 to keep SaO2 > 90% -RTC and PRN HHN's -Abx per ID -F/U GI recs, monitor H/H -GTF's as tolerated -Monitor volumes and renal function, mIVF per renal -F/U cards recs -DVT Px: Hep SQ -FC Subjective Allergies: Coded Allergies: No Known Allergies (Verified , 12/29/06) Subjective AFVSS, O2 needs stable No cough, no SOB, no F/C Darius TF's Objective Last 24 Hour Vital Signs Date Time Temp Pulse Resp B/P (MAP) Pulse Ox O2 Delivery O2 Flow Rate FiO2 07/06/17 07:58 78 18 100 Nasal Cannula 2.0 28 07/06/17 07:47 74 18 100 Nasal Cannula 2.0 28 07/06/17 07:46 100 Nasal Cannula 2.0 28 07/06/17 07:46 Nasal Cannula 2.0 28 07/06/17 05:22 140/71 07/06/17 05:21 90 140/71 07/06/17 04:00 97.7 90 20 140/71 96 Nasal Cannula 2.0 97.7 07/06/17 04:00 82 07/06/17 01:26 85 18 99 Nasal Cannula 2.0 28 07/06/17 01:14 98 18 96 Nasal Cannula 2.0 28 07/06/17 00:32 89 117/71 07/06/17 00:00 117/71 07/06/17 00:00 96.2 89 19 117/71 95 Nasal Cannula 2.0 96.2 07/06/17 00:00 87 07/05/17 20:00 90 07/05/17 20:00 96.9 94 20 127/78 96 Nasal Cannula 2.0 96.9 07/05/17 19:29 99 20 99 Nasal Cannula 2.0 28 07/05/17 19:24 99 Nasal Cannula 2.0 28 07/05/17 19:24 Nasal Cannula 2.0 28 07/05/17 19:24 96 18 97 Nasal Cannula 2.0 28 07/05/17 17:39 149/70 07/05/17 17:39 98 149/70 07/05/17 16:00 98 07/05/17 16:00 98.1 99 20 149/70 96 Nasal Cannula 2.0 98.1 07/05/17 13:51 130/76 07/05/17 13:50 101 130/76 07/05/17 12:54 101 18 99 Nasal Cannula 2.0 28 07/05/17 12:44 99 18 96 Nasal Cannula 2.0 28 07/05/17 12:04 98.9 99 21 130/76 94 Nasal Cannula 2.0 98.9 07/05/17 12:00 97 Intake and Output 07/05/17 07/06/17 19:00 07:00 Intake Total 510.0 ml 1110 ml Output Total 100 ml Balance 510.0 ml 1010 ml Intake Free Water 1000 ml IV Total 210.0 ml 50 ml Tube Feeding 300 ml 60 ml Stool Total 100 ml # Voids 4 # Bowel Movements 1 General Appearance: cachetic HEENT: normocephalic, atraumatic, anicteric, mucous membranes moist Respiratory/Chest: chest wall non-tender, lungs clear, normal breath sounds, no respiratory distress Cardiovascular: normal peripheral pulses, normal rate, regular rhythm Abdomen: normal bowel sounds, soft, non tender, no organomegaly, other - GT + colostomy Extremities: no cyanosis, no clubbing, no edema Laboratory Tests 07/05/17 15:45: Lactic Acid Level 1.30, C-Reactive Protein, Quantitative 34.5H Current Medications Medications (Trade) Dose Ordered Sig/Jared Route PRN Reason Start Time Stop Time Status Last Admin Dose Admin Acetaminophen (Tylenol) 500 mg Q6HR PRN ORAL moderate pain (4-6) 07/05/17 18:00 07/31/17 11:59 Acetaminophen (Tylenol) 650 mg Q4H PRN ORAL Mild Pain/Temp > 100.5 07/05/17 16:00 07/31/17 11:59 Albuterol/ Ipratropium (Albuterol/ Ipratropium) 3 ml Q4H PRN HHN Shortness of Breath 07/05/17 18:15 07/06/17 18:14 Albuterol/ Ipratropium (Albuterol/ Ipratropium) 3 ml Q6HRT HHN 07/05/17 19:00 07/06/17 18:59 07/06/17 08:12 Dextrose (Dextrose 50%) 25 ml STAT PRN IV Hypoglycemia 07/06/17 11:45 07/31/17 11:44 Dextrose (Dextrose 50%) 50 ml STAT PRN IV Hypoglycemia 07/06/17 11:45 07/31/17 11:44 Dextrose/ Electrolytes 1,000 ml @ 50 mls/hr Q20H IV 07/05/17 15:00 07/31/17 14:59 07/05/17 16:07 Diltiazem HCl (Cardizem) 30 mg Q6HR GT 07/05/17 18:00 08/03/17 05:59 07/06/17 05:21 Heparin Sodium (Porcine) (Heparin 5000 units/ml) 5,000 units EVERY 12 HOURS SUBQ 07/05/17 21:00 07/31/17 20:59 07/06/17 08:34 Hydralazine HCl (Apresoline) 25 mg Q6HR ORAL 07/05/17 18:00 08/03/17 17:59 07/06/17 05:22 Multivitamins (Multivitamins) 1 tab DAILY ORAL 07/06/17 09:00 08/04/17 08:59 07/06/17 08:33 Pantoprazole (Protonix) 40 mg DAILY IVP 07/06/17 09:00 08/04/17 08:59 07/06/17 08:32 Piperacillin Sod/ Tazobactam Sod 3.375 gm/Dextrose 110 ml @ 27.5 mls/hr EVERY 12 HOURS IVPB 07/05/17 21:00 07/06/17 23:59 07/06/17 08:33 Quetiapine Fumarate (SEROquel) 25 mg BEDTIME ORAL 07/05/17 21:00 08/02/17 20:59 07/05/17 20:28 Quetiapine Fumarate (SEROquel) 25 mg EVERY 6 HOURS PRN ORAL Agitation 07/05/17 18:00 08/02/17 13:14 ASIF MOORE M.D. July 06, 2017 08:44
[2017-07-06] MEDS ORDERED: Pantoprazole Inj IVP SCH (09:00)
[2017-07-06] MEDS ORDERED: LEVOFLOXAC250 MG/10 GT (09:22)
[2017-07-06 09:38] LABS: BASOPHILS % (AUTO) 0.8 % (0.0-2.0); EOSINOPHILS % (AUTO) 5.3 % (0.0-3.0); HEMATOCRIT 34.2 % (42.0-52.0); HEMOGLOBIN 10.4 G/DL (14.2-18.0); LYMPHOCYTES % (AUTO) 9.4 % (20.0-45.0); MEAN CORPUSCULAR VOLUME 86 FL (80-99); MONOCYTES % (AUTO) 7.4 % (1.0-10.0); NEUTROPHILS % (AUTO) 77.2 % (45.0-75.0); PLATELET COUNT 248 K/UL (150-450); RED BLOOD COUNT 3.96 M/UL (4.70-6.10); RED CELL DISTRIBUTION WIDTH 15.6 % (11.6-14.8); WHITE BLOOD COUNT 10.7 K/UL (4.8-10.8)
--- NOTE | 2017-07-06 10:17 | Nephrology Progress Note ---
Assessment/Plan Problem List: (1) CRI (chronic renal insufficiency) (2) Hypertensive urgency (3) Acute hypoxemic respiratory failure (4) Anemia (5) Hypoalbuminemia Assessment - Hypertensive urgency on presentation - DM and Nephropathy - CRI (chronic renal insufficiency) Cr 2.1....2.0 - BiPAP (biphasic positive airway pressure) as needed - Acute hypoxemic respiratory failure - Oxygen desaturation - Bifascicular bundle branch block - HTN (hypertension) - CVA (cerebral infarction) - GERD (gastroesophageal reflux disease) - diverting colostomy - Diverticulitis Plan Plan: no labs today yet Antibiotics- monitor renal parameters- adjust bp meds- pulmonary support Phos supp 2D Echo Normal left ventricular chamber size, systolic function and wall motion. Left ventricular ejection fraction estimated to be 55-60% to extend visualized. Avoid nephrotoxics per orders Subjective ROS Limited/Unobtainable: No Constitutional: Reports: malaise Objective Objective Last 24 Hour Vital Signs Date Time Temp Pulse Resp B/P (MAP) Pulse Ox O2 Delivery O2 Flow Rate FiO2 07/06/17 08:00 85 07/06/17 08:00 97.6 88 20 167/72 99 Nasal Cannula 2.0 97.6 07/06/17 07:58 78 18 100 Nasal Cannula 2.0 28 07/06/17 07:47 74 18 100 Nasal Cannula 2.0 28 07/06/17 07:46 100 Nasal Cannula 2.0 28 07/06/17 07:46 Nasal Cannula 2.0 28 07/06/17 05:22 140/71 07/06/17 05:21 90 140/71 07/06/17 04:00 97.7 90 20 140/71 96 Nasal Cannula 2.0 97.7 07/06/17 04:00 82 07/06/17 01:26 85 18 99 Nasal Cannula 2.0 28 07/06/17 01:14 98 18 96 Nasal Cannula 2.0 28 07/06/17 00:32 89 117/71 07/06/17 00:00 117/71 07/06/17 00:00 96.2 89 19 117/71 95 Nasal Cannula 2.0 96.2 07/06/17 00:00 87 07/05/17 20:00 90 07/05/17 20:00 96.9 94 20 127/78 96 Nasal Cannula 2.0 96.9 07/05/17 19:29 99 20 99 Nasal Cannula 2.0 28 07/05/17 19:24 99 Nasal Cannula 2.0 28 07/05/17 19:24 Nasal Cannula 2.0 28 07/05/17 19:24 96 18 97 Nasal Cannula 2.0 28 07/05/17 17:39 149/70 07/05/17 17:39 98 149/70 07/05/17 16:00 98 07/05/17 16:00 98.1 99 20 149/70 96 Nasal Cannula 2.0 98.1 07/05/17 13:51 130/76 07/05/17 13:50 101 130/76 07/05/17 12:54 101 18 99 Nasal Cannula 2.0 28 07/05/17 12:44 99 18 96 Nasal Cannula 2.0 28 07/05/17 12:04 98.9 99 21 130/76 94 Nasal Cannula 2.0 98.9 07/05/17 12:00 97 Intake and Output 07/05/17 07/06/17 19:00 07:00 Intake Total 510.0 ml 1160 ml Output Total 100 ml Balance 510.0 ml 1060 ml Intake Free Water 1000 ml IV Total 210.0 ml 100 ml Tube Feeding 300 ml 60 ml Stool Total 100 ml # Voids 4 # Bowel Movements 1 Laboratory Tests 07/05/17 15:45: Lactic Acid Level 1.30, C-Reactive Protein, Quantitative 34.5H 07/06/17 06:55: White Blood Count 10.7, Red Blood Count 3.96L, Hemoglobin 10.4L, Hematocrit 34.2L, Mean Corpuscular Volume 86, Mean Corpuscular Hemoglobin 26.2L, Mean Corpuscular Hemoglobin Concent 30.3L, Red Cell Distribution Width 15.6H, Platelet Count 248, Mean Platelet Volume 8.0, Neutrophils (%) (Auto) 77.2H, Lymphocytes (%) (Auto) 9.4L, Monocytes (%) (Auto) 7.4, Eosinophils (%) (Auto) 5.3H, Basophils (%) (Auto) 0.8, Sodium Level [Pending], Potassium Level [Pending ], Chloride Level [Pending], Carbon Dioxide Level [Pending], Blood Urea Nitrogen [Pending], Creatinine [Pending], Estimat Glomerular Filtration Rate [ Pending], Glucose Level [Pending], Uric Acid [Pending], Calcium Level [Pending] , Phosphorus Level [Pending], Magnesium Level [Pending], Total Bilirubin [ Pending], Aspartate Amino Transf (AST/SGOT) [Pending], Alanine Aminotransferase (ALT/SGPT) [Pending], Alkaline Phosphatase [Pending], Pro-B-Type Natriuretic Peptide [Pending], Total Protein [Pending], Albumin [Pending], Globulin [Pending ] Height (Feet): 5 Height (Inches): 5.00 Weight (Pounds): 214 General Appearance: no apparent distress, other - more responsive Respiratory/Chest: decreased breath sounds Objective no change JAVAN RODRIGUEZ July 06, 2017 10:17
[2017-07-06 10:19] LABS: ALANINE AMINOTRANSFERASE 22 U/L (12-78); ALBUMIN 2.5 G/DL (3.4-5.0); ALBUMIN/GLOBULIN RATIO 0.4 (1.0-2.7); ALKALINE PHOSPHATASE 129 U/L (46-116); ANION GAP 8 mmol/L (5-15); ASPARTATE AMINO TRANSFERASE 12 U/L (15-37); BILIRUBIN,TOTAL 0.3 MG/DL (0.2-1.0); BLOOD UREA NITROGEN 27 mg/dL (7-18); CALCIUM 9.3 MG/DL (8.5-10.1); CARBON DIOXIDE 28 MMOL/L (21-32); CHLORIDE 101 MMOL/L (98-107); CREATININE 2.2 MG/DL (0.55-1.30); PHOSPHORUS 2.6 MG/DL (2.5-4.9); SODIUM 137 MMOL/L (136-145)
--- NOTE | 2017-07-06 10:45 | GI Progress Note ---
Assessment/Plan Problems: (1) Abdominal pain ICD Codes: R10.9 - Unspecified abdominal pain SNOMED: 23128320 (2) diverting colostomy (3) CVA (cerebral infarction) ICD Codes: I63.9 - CVA (cerebral infarction) SNOMED: 607945236 (4) GERD (gastroesophageal reflux disease) ICD Codes: K21.9 - GERD (gastroesophageal reflux disease) SNOMED: 127594335 (5) HTN (hypertension) ICD Codes: I10 - HTN (hypertension) SNOMED: 65325611 (6) Anemia ICD Codes: D64.9 - Anemia SNOMED: 939510392 Status: stable Status Narrative Discussed with Dr. Ochoa. Assessment/Plan okay for DC per GI standpoint OB negative prn transfusions ppi colostomy care abx per ID trend lipase fu labs, iron panel continue TF GT care The patient was seen and examined at bedside and all new and available data was reviewed in the patients chart. I agree with the above findings, impression and plan. (Patient seen earlier today. Signature stamp does not reflect patient encounter time.). - Abner Ochoa MD Subjective Subjective limited Objective Last 24 Hour Vital Signs Date Time Temp Pulse Resp B/P (MAP) Pulse Ox O2 Delivery O2 Flow Rate FiO2 07/06/17 08:00 85 07/06/17 08:00 97.6 88 20 167/72 99 Nasal Cannula 2.0 97.6 07/06/17 07:58 78 18 100 Nasal Cannula 2.0 28 07/06/17 07:47 74 18 100 Nasal Cannula 2.0 28 07/06/17 07:46 100 Nasal Cannula 2.0 28 07/06/17 07:46 Nasal Cannula 2.0 28 07/06/17 05:22 140/71 07/06/17 05:21 90 140/71 07/06/17 04:00 97.7 90 20 140/71 96 Nasal Cannula 2.0 97.7 07/06/17 04:00 82 07/06/17 01:26 85 18 99 Nasal Cannula 2.0 28 07/06/17 01:14 98 18 96 Nasal Cannula 2.0 28 07/06/17 00:32 89 117/71 07/06/17 00:00 117/71 07/06/17 00:00 96.2 89 19 117/71 95 Nasal Cannula 2.0 96.2 07/06/17 00:00 87 07/05/17 20:00 90 07/05/17 20:00 96.9 94 20 127/78 96 Nasal Cannula 2.0 96.9 07/05/17 19:29 99 20 99 Nasal Cannula 2.0 28 07/05/17 19:24 99 Nasal Cannula 2.0 28 07/05/17 19:24 Nasal Cannula 2.0 28 07/05/17 19:24 96 18 97 Nasal Cannula 2.0 28 07/05/17 17:39 149/70 07/05/17 17:39 98 149/70 07/05/17 16:00 98 07/05/17 16:00 98.1 99 20 149/70 96 Nasal Cannula 2.0 98.1 07/05/17 13:51 130/76 07/05/17 13:50 101 130/76 07/05/17 12:54 101 18 99 Nasal Cannula 2.0 28 07/05/17 12:44 99 18 96 Nasal Cannula 2.0 28 07/05/17 12:04 98.9 99 21 130/76 94 Nasal Cannula 2.0 98.9 07/05/17 12:00 97 Intake and Output 07/05/17 07/06/17 19:00 07:00 Intake Total 510.0 ml 1160 ml Output Total 100 ml Balance 510.0 ml 1060 ml Intake Free Water 1000 ml IV Total 210.0 ml 100 ml Tube Feeding 300 ml 60 ml Stool Total 100 ml # Voids 4 # Bowel Movements 1 Laboratory Tests Test 07/05/17 15:45 07/06/17 06:55 Lactic Acid Level 1.30 mmol/L (0.66-2.22) C-Reactive Protein, Quantitative 34.5 mg/dL (0.00-0.90) H White Blood Count 10.7 K/UL (4.8-10.8) Red Blood Count 3.96 M/UL (4.70-6.10) L Hemoglobin 10.4 G/DL (14.2-18.0) L Hematocrit 34.2 % (42.0-52.0) L Mean Corpuscular Volume 86 FL (80-99) Mean Corpuscular Hemoglobin 26.2 PG (27.0-31.0) L Mean Corpuscular Hemoglobin Concent 30.3 G/DL (32.0-36.0) L Red Cell Distribution Width 15.6 % (11.6-14.8) H Platelet Count 248 K/UL (150-450) Mean Platelet Volume 8.0 FL (6.5-10.1) Neutrophils (%) (Auto) 77.2 % (45.0-75.0) H Lymphocytes (%) (Auto) 9.4 % (20.0-45.0) L Monocytes (%) (Auto) 7.4 % (1.0-10.0) Eosinophils (%) (Auto) 5.3 % (0.0-3.0) H Basophils (%) (Auto) 0.8 % (0.0-2.0) Sodium Level 137 MMOL/L (136-145) Potassium Level 4.0 MMOL/L (3.5-5.1) Chloride Level 101 MMOL/L (98-107) Carbon Dioxide Level 28 MMOL/L (21-32) Anion Gap 8 mmol/L (5-15) Blood Urea Nitrogen 27 mg/dL (7-18) H Creatinine 2.2 MG/DL (0.55-1.30) H Estimat Glomerular Filtration Rate mL/min (>60) Glucose Level 302 MG/DL (74-106) H Uric Acid 2.6 MG/DL (2.6-7.2) Calcium Level 9.3 MG/DL (8.5-10.1) Phosphorus Level 2.6 MG/DL (2.5-4.9) Magnesium Level 2.0 MG/DL (1.8-2.4) Total Bilirubin 0.3 MG/DL (0.2-1.0) Aspartate Amino Transf (AST/SGOT) 12 U/L (15-37) L Alanine Aminotransferase (ALT/SGPT) 22 U/L (12-78) Alkaline Phosphatase 129 U/L (46-116) H Pro-B-Type Natriuretic Peptide 3251 pg/mL (0-125) H Total Protein 8.1 G/DL (6.4-8.2) Albumin 2.5 G/DL (3.4-5.0) L Globulin 5.6 g/dL Albumin/Globulin Ratio 0.4 (1.0-2.7) L Height (Feet): 5 Height (Inches): 5.00 Weight (Pounds): 214 General Appearance: WD/WN, no apparent distress, alert Cardiovascular: normal rate Respiratory/Chest: normal breath sounds, no respiratory distress Abdominal Exam: normal bowel sounds, non tender, soft, GT site - c/d/i Extremities: non-tender Meredith Avilez NP July 06, 2017 10:45
[2017-07-06] MEDS: D5 1/2NS w/KCL 10meq 1,000 ML IV SCH (10:54)
--- NOTE | 2017-07-06 11:42 | General Progress Note ---
Assessment/Plan Status: stable, progressing Assessment/Plan encephalopathy dementia with behavioral issues seroquel prn Subjective Date patient seen: July 06, 2017 Neurologic/Psychiatric: Reports: anxiety, emotional problems Allergies: Coded Allergies: No Known Allergies (Verified , 12/29/06) Subjective the pt still confused and not able to participate Objective Last 24 Hour Vital Signs Date Time Temp Pulse Resp B/P (MAP) Pulse Ox O2 Delivery O2 Flow Rate FiO2 07/06/17 08:00 85 07/06/17 08:00 97.6 88 20 167/72 99 Nasal Cannula 2.0 97.6 07/06/17 07:58 78 18 100 Nasal Cannula 2.0 28 07/06/17 07:47 74 18 100 Nasal Cannula 2.0 28 07/06/17 07:46 100 Nasal Cannula 2.0 28 07/06/17 07:46 Nasal Cannula 2.0 28 07/06/17 05:22 140/71 07/06/17 05:21 90 140/71 07/06/17 04:00 97.7 90 20 140/71 96 Nasal Cannula 2.0 97.7 07/06/17 04:00 82 07/06/17 01:26 85 18 99 Nasal Cannula 2.0 28 07/06/17 01:14 98 18 96 Nasal Cannula 2.0 28 07/06/17 00:32 89 117/71 07/06/17 00:00 117/71 07/06/17 00:00 96.2 89 19 117/71 95 Nasal Cannula 2.0 96.2 07/06/17 00:00 87 07/05/17 20:00 90 07/05/17 20:00 96.9 94 20 127/78 96 Nasal Cannula 2.0 96.9 07/05/17 19:29 99 20 99 Nasal Cannula 2.0 28 07/05/17 19:24 99 Nasal Cannula 2.0 28 07/05/17 19:24 Nasal Cannula 2.0 28 07/05/17 19:24 96 18 97 Nasal Cannula 2.0 28 07/05/17 17:39 149/70 07/05/17 17:39 98 149/70 07/05/17 16:00 98 07/05/17 16:00 98.1 99 20 149/70 96 Nasal Cannula 2.0 98.1 07/05/17 13:51 130/76 07/05/17 13:50 101 130/76 07/05/17 12:54 101 18 99 Nasal Cannula 2.0 28 07/05/17 12:44 99 18 96 Nasal Cannula 2.0 28 07/05/17 12:04 98.9 99 21 130/76 94 Nasal Cannula 2.0 98.9 07/05/17 12:00 97 Intake and Output 07/05/17 07/06/17 19:00 07:00 Intake Total 510.0 ml 1160 ml Output Total 100 ml Balance 510.0 ml 1060 ml Intake Free Water 1000 ml IV Total 210.0 ml 100 ml Tube Feeding 300 ml 60 ml Stool Total 100 ml # Voids 4 # Bowel Movements 1 Laboratory Tests 07/05/17 15:45: Lactic Acid Level 1.30, C-Reactive Protein, Quantitative 34.5H 07/06/17 06:55: White Blood Count 10.7, Red Blood Count 3.96L, Hemoglobin 10.4L, Hematocrit 34.2L, Mean Corpuscular Volume 86, Mean Corpuscular Hemoglobin 26.2L, Mean Corpuscular Hemoglobin Concent 30.3L, Red Cell Distribution Width 15.6H, Platelet Count 248, Mean Platelet Volume 8.0, Neutrophils (%) (Auto) 77.2H, Lymphocytes (%) (Auto) 9.4L, Monocytes (%) (Auto) 7.4, Eosinophils (%) (Auto) 5.3H, Basophils (%) (Auto) 0.8, Sodium Level 137, Potassium Level 4.0, Chloride Level 101, Carbon Dioxide Level 28, Anion Gap 8, Blood Urea Nitrogen 27H, Creatinine 2.2H, Estimat Glomerular Filtration Rate , Glucose Level 302H, Uric Acid 2.6, Calcium Level 9.3, Phosphorus Level 2.6, Magnesium Level 2.0, Total Bilirubin 0.3, Aspartate Amino Transf (AST/SGOT) 12L, Alanine Aminotransferase ( ALT/SGPT) 22, Alkaline Phosphatase 129H, Pro-B-Type Natriuretic Peptide 3251H, Total Protein 8.1, Albumin 2.5L, Globulin 5.6, Albumin/Globulin Ratio 0.4L Height (Feet): 5 Height (Inches): 5.00 Weight (Pounds): 214 General Appearance: WD/WN, no apparent distress Ce Reid M.D. July 06, 2017 11:42
[2017-07-06 12:00] VITALS: BP 156/75
[2017-07-06 12:05] VITALS: BP 156/75
--- NOTE | 2017-07-06 14:11 | Infectious Diseases Prog Note ---
Assessment/Plan Assessment/Plan A: Sepsis improving Pneumonia Bacteremia with CoANS contamination Respiratory failure Renal failure Dementia Dysphagia Gastrostomy status s/p colostomy P; discontinue Zosyn Levaquin X 3 days Agree with discharge Subjective ROS Limited/Unobtainable: Yes Neurologic: Reports: confusion Musculoskeletal: Reports: no symptoms Allergies: Coded Allergies: No Known Allergies (Verified , 12/29/06) Objective Vital Signs Last 24 Hour Vital Signs Date Time Temp Pulse Resp B/P (MAP) Pulse Ox O2 Delivery O2 Flow Rate FiO2 07/06/17 12:49 84 18 100 Nasal Cannula 2.0 28 07/06/17 12:40 78 20 100 Nasal Cannula 2.0 28 07/06/17 12:05 156/75 07/06/17 12:04 87 156/75 07/06/17 12:00 97.2 87 20 156/75 100 Nasal Cannula 2.0 97.2 07/06/17 12:00 87 07/06/17 08:00 85 07/06/17 08:00 97.6 88 20 167/72 99 Nasal Cannula 2.0 97.6 07/06/17 07:58 78 18 100 Nasal Cannula 2.0 28 07/06/17 07:47 74 18 100 Nasal Cannula 2.0 28 07/06/17 07:46 100 Nasal Cannula 2.0 28 07/06/17 07:46 Nasal Cannula 2.0 28 07/06/17 05:22 140/71 07/06/17 05:21 90 140/71 07/06/17 04:00 97.7 90 20 140/71 96 Nasal Cannula 2.0 97.7 07/06/17 04:00 82 07/06/17 01:26 85 18 99 Nasal Cannula 2.0 28 07/06/17 01:14 98 18 96 Nasal Cannula 2.0 28 07/06/17 00:32 89 117/71 07/06/17 00:00 117/71 07/06/17 00:00 96.2 89 19 117/71 95 Nasal Cannula 2.0 96.2 07/06/17 00:00 87 07/05/17 20:00 90 07/05/17 20:00 96.9 94 20 127/78 96 Nasal Cannula 2.0 96.9 07/05/17 19:29 99 20 99 Nasal Cannula 2.0 28 07/05/17 19:24 99 Nasal Cannula 2.0 28 07/05/17 19:24 Nasal Cannula 2.0 28 07/05/17 19:24 96 18 97 Nasal Cannula 2.0 28 07/05/17 17:39 149/70 07/05/17 17:39 98 149/70 07/05/17 16:00 98 07/05/17 16:00 98.1 99 20 149/70 96 Nasal Cannula 2.0 98.1 Height (Feet): 5 Height (Inches): 5.00 Weight (Pounds): 214 General Appearance: no acute distress HEENT: mucous membranes moist Respiratory/Chest: lungs clear Cardiovascular: normal rate Abdomen: soft, non tender, other - GT feeding Extremities: no edema Neurologic/Psychiatric: disoriented, other - obeys simple commands Laboratory Tests Test 07/05/17 15:45 07/06/17 06:55 Lactic Acid Level 1.30 mmol/L (0.66-2.22) C-Reactive Protein, Quantitative 34.5 mg/dL (0.00-0.90) H White Blood Count 10.7 K/UL (4.8-10.8) Red Blood Count 3.96 M/UL (4.70-6.10) L Hemoglobin 10.4 G/DL (14.2-18.0) L Hematocrit 34.2 % (42.0-52.0) L Mean Corpuscular Volume 86 FL (80-99) Mean Corpuscular Hemoglobin 26.2 PG (27.0-31.0) L Mean Corpuscular Hemoglobin Concent 30.3 G/DL (32.0-36.0) L Red Cell Distribution Width 15.6 % (11.6-14.8) H Platelet Count 248 K/UL (150-450) Mean Platelet Volume 8.0 FL (6.5-10.1) Neutrophils (%) (Auto) 77.2 % (45.0-75.0) H Lymphocytes (%) (Auto) 9.4 % (20.0-45.0) L Monocytes (%) (Auto) 7.4 % (1.0-10.0) Eosinophils (%) (Auto) 5.3 % (0.0-3.0) H Basophils (%) (Auto) 0.8 % (0.0-2.0) Sodium Level 137 MMOL/L (136-145) Potassium Level 4.0 MMOL/L (3.5-5.1) Chloride Level 101 MMOL/L (98-107) Carbon Dioxide Level 28 MMOL/L (21-32) Anion Gap 8 mmol/L (5-15) Blood Urea Nitrogen 27 mg/dL (7-18) H Creatinine 2.2 MG/DL (0.55-1.30) H Estimat Glomerular Filtration Rate mL/min (>60) Glucose Level 302 MG/DL (74-106) H Uric Acid 2.6 MG/DL (2.6-7.2) Calcium Level 9.3 MG/DL (8.5-10.1) Phosphorus Level 2.6 MG/DL (2.5-4.9) Magnesium Level 2.0 MG/DL (1.8-2.4) Total Bilirubin 0.3 MG/DL (0.2-1.0) Aspartate Amino Transf (AST/SGOT) 12 U/L (15-37) L Alanine Aminotransferase (ALT/SGPT) 22 U/L (12-78) Alkaline Phosphatase 129 U/L (46-116) H Pro-B-Type Natriuretic Peptide 3251 pg/mL (0-125) H Total Protein 8.1 G/DL (6.4-8.2) Albumin 2.5 G/DL (3.4-5.0) L Globulin 5.6 g/dL Albumin/Globulin Ratio 0.4 (1.0-2.7) L Current Medications Medications (Trade) Dose Ordered Sig/Jared Route PRN Reason Start Time Stop Time Status Last Admin Dose Admin Acetaminophen (Tylenol) 500 mg Q6HR PRN ORAL moderate pain (4-6) 07/05/17 18:00 07/31/17 11:59 Acetaminophen (Tylenol) 650 mg Q4H PRN ORAL Mild Pain/Temp > 100.5 07/05/17 16:00 07/31/17 11:59 Albuterol/ Ipratropium (Albuterol/ Ipratropium) 3 ml Q4H PRN HHN Shortness of Breath 07/05/17 18:15 07/06/17 18:14 Albuterol/ Ipratropium (Albuterol/ Ipratropium) 3 ml Q6HRT HHN 07/05/17 19:00 07/06/17 18:59 07/06/17 12:48 Dextrose (Dextrose 50%) 25 ml STAT PRN IV Hypoglycemia 07/06/17 11:45 07/31/17 11:44 Dextrose (Dextrose 50%) 50 ml STAT PRN IV Hypoglycemia 07/06/17 11:45 07/31/17 11:44 Dextrose/ Electrolytes 1,000 ml @ 50 mls/hr Q20H IV 07/05/17 15:00 07/31/17 14:59 07/05/17 16:07 Diltiazem HCl (Cardizem) 30 mg Q6HR GT 07/05/17 18:00 08/03/17 05:59 07/06/17 12:04 Heparin Sodium (Porcine) (Heparin 5000 units/ml) 5,000 units EVERY 12 HOURS SUBQ 07/05/17 21:00 07/31/17 20:59 07/06/17 08:34 Hydralazine HCl (Apresoline) 25 mg Q6HR ORAL 07/05/17 18:00 08/03/17 17:59 07/06/17 12:05 Multivitamins (Multivitamins) 1 tab DAILY ORAL 07/06/17 09:00 08/04/17 08:59 07/06/17 08:33 Pantoprazole (Protonix) 40 mg DAILY IVP 07/06/17 09:00 08/04/17 08:59 07/06/17 08:32 Piperacillin Sod/ Tazobactam Sod 3.375 gm/Dextrose 110 ml @ 27.5 mls/hr EVERY 12 HOURS IVPB 07/05/17 21:00 07/11/17 20:59 07/06/17 08:33 Quetiapine Fumarate (SEROquel) 25 mg BEDTIME ORAL 07/05/17 21:00 08/02/17 20:59 07/05/17 20:28 Quetiapine Fumarate (SEROquel) 25 mg EVERY 6 HOURS PRN ORAL Agitation 07/05/17 18:00 08/02/17 13:14 HORTENSIA MALHOTRA July 06, 2017 14:11
--- NOTE | 2017-07-07 13:56 | Psych Consult Progress Note ---
Psych Consult Progress Note Consult 07/04/17 encephalopathy dementia with behavioral issues seroquel prn Problems: (1) Diverticulitis Status: Acute (2) GERD (gastroesophageal reflux disease) Status: Acute (3) HTN (hypertension) Status: Acute (4) CVA (cerebral infarction) Status: Chronic (5) DM (diabetes mellitus) Status: Acute (6) CRI (chronic renal insufficiency) Status: Acute (7) BiPAP (biphasic positive airway pressure) dependence (8) Hypertensive urgency (9) Acute hypoxemic respiratory failure (10) diverting colostomy Status: Acute (11) Abdominal pain Status: Acute (12) Oxygen desaturation (13) Anemia Status: Acute (14) Sepsis (15) Hypoalbuminemia Status: Acute Ce Reid M.D. July 07, 2017 13:56
--- NOTE | 2017-07-07 13:57 | Geriatric Progress Note ---
Assessment/Plan Assessment/Plan encephalopathy dementia with behavioral issues seroquel prn Subjective Interval Events 07/05/17 Mood/Memory: Reports: anxiety, depressed feelings, emotional problems Geriatric Geriatric Intake and Output 07/06/17 07/07/17 19:00 07:00 Intake Total 662.5 ml Balance 662.5 ml Intake Free Water 30 ml IV Total 332.5 ml Tube Feeding 300 ml Height (Feet): 5 Height (Inches): 5.00 Weight (Pounds): 214 General Appearance: well groomed, well nourished, no apparent distress Psychiatric Behavior: cooperative Orientation: person, place Affect: appropriate Insight: Ce Amato M.D. July 07, 2017 13:57
--- NOTE | 2017-07-08 11:11 | Discharge Summary ---
Discharge Summary Discharge Summary Discharge Summary DATE OF ADMISSION: 07/02/2017 DATE OF DISCHARGE: REASON FOR ADMISSION: 81years old male with past medical history significant for hypertension diabetes , CVA, dysphagia , diverging colostomy, was brought to emergency room from the [facility] for evaluation. Patient was found to be tachycardic ,hypoxemic, lactic acid was elevated. Chest x-ray revealed off right sided infiltrate. Blood pressure was severely elevated 243/115. WBC 13.5. Patient required placement on BiPAP. EKG revealed bifascicular bundle branch block with underlying sinus tachycardia. Troponin was negative. Patient was pancultured and started on empiric antibiotics. Patient was transferred to telemetry floor for further management with diagnosis of sepsis,, acute hypoxemic respiratory failure, hypertensive urgency, renal failure, pneumonia, dysphagia. CONSULTANTS: filtration plant mechanic Dr. Sams pulmonary Dr. Mauricio ID specialist Dr. Cheo Bhagat GI specialist , Don technology advisor Dr. Hoyos psychiatrist Dr. Reid [facility]: Patient admitted to telemetry floor. Patient initially was on the BiPAP . Dish Up Person closely followed. Pulmonary toilet was provided around the clock and on as needed basis. Supplemental oxygen titrated to keep pulse oximetry above 92%. As he clinically improved, patient subsequently was able to be weaned from BiPAP. Patient was on antibiotics as per ID recommendations. Strict aspiration precautions were maintained. G-tube feeding was continued. DVT prophylaxis provided. Pulse oximetry was stable on oxygen 2 L via nasal cannula prior to discharge Influenza screen test was negative. Blood culture showed Staphylococcus coagulase negative, likely contaminant as per ID. ID specialist directed antibiotic regimen. Sputum culture was unable to be collected since patient was dry. Prior to discharge, antibiotic changed to G tube route to complete the course of treatment as recommended by ID specialist. Senior Research Scientist closely followed. Renal parameters and electrolytes were closely monitored. Electrolytes were corrected as needed. Nephrotoxins were avoided. Patient had a history of chronic renal insufficiency likely due to diabetic nephropathy. Hemoglobin A1c- 7.5. Blood sugar was managed with a sliding scale of insulin. Initial troponin was negative, second troponin minimally elevated 0.221, and the last troponin was negative again. Echocardiogram revealed preserved ejection fraction of 55-60% and right ventricular systolic pressure of 44 consistent with mild pulmonary hypertension. No evidence of left ventricular hypertrophy. No evidence of pericardial effusion. Minimally elevated single episode of troponin likely related to chronic renal insufficiency , no cardiac complaints. Blood pressure was managed with the hydralazine and Cardizem and remained stable. DVT prophylaxis provided. Venous duplex bilateral lower extremities was negative. Considering multiply comorbidities, conservative treatment was recommended by filtration plant mechanic. GI specialist closely followed. Bedside swallow evaluation revealed severe dysphagia. Due to moderate to severe dysphagia and current pneumonia, patient was at high risk for silent aspiration. Speech therapist recommended video swallow evaluation along with keeping patient nothing by mouth until the evaluation completed.. Subsequently video swallow evaluation was done which revealed high risk for silent aspiration. Speech therapist recommended senior living non- oral feeding to meet nutritional and hydration needs. Due to dysphagia, high aspiration risk and failure to thrive, patient undergone under endoscopy with PEG placement on 07/03/2017 . Strict aspiration /reflux precautions were maintained. Abdominal binder applied. G-tube site care provided. Patient was able to tolerate tube feeding. Lipase was trending down, prior to discharge 119 from initial 597. Colostomy care provided. Stool for occult blood was negative. Hemoglobin and hematocrit remained at baseline, no need for transfusion. Patient was on PPI. Anemia workup was consistent with anemia of chronic disease. Psychiatrist closely followed Psychiatrist diagnosed patient with dementia with behavioral issues and encephalopathy. Patient started on Seroquel on as needed basis. Patient clinically improved and was cleared for discharge by all consultants. Patient subsequently was transferred to [facility] facility for continuation of care FINAL DIAGNOSES: Acute hypoxemic respiratory failure requiring BiPAP, resolved Hypertensive urgency, resolved Sepsis secondary to pneumonia Pneumonia Anemia Diabetes mellitus with the diabetic nephropathy Chronic renal insufficiency Bifascicular bundle branch block History of CVA GERD Dysphagia Status post PEG placement 07/03/2017 G-tube Encephalopathy Diverging colostomy Dementia with behavioral issues DISCHARGE MEDICATIONS: See Medication Reconciliation list. DISCHARGE INSTRUCTIONS: [Patient was discharged to [facility] facility. Follow up with medical doctor at the facility. I have been assigned to dictate discharge summary for this account. I was not involved in the patient's management. Aggie Spear NP July 08, 2017 11:11
--- NOTE | 2017-07-08 16:20 | Diagnostic Imaging Report ---
Indications: Dysphagia Technique: Patient ingested multiple substances under the supervision of speech pathology. Video fluoroscopic recording performed. Total fluoroscopy time 240 seconds. Total dose area product 0.71452 mGycm2 Comparison: none Findings: Multiple episodes of penetration of thin liquid barium are demonstrated, as well as audible aspiration of thin liquid barium with second swallow. There is delay in initiation of deglutition and early pooling of nectar thick liquid barium. There is some penetration any thick liquid barium and barium puree demonstrates residual pooling, no definite aspiration or penetration. Impression: Positive for penetration and possible aspiration of thin and nectar thick liquid barium. Please refer to speech pathology report for more detailed analysis
== END 2017-07-06 15:02 | DRG 871 ==
LOC: EDBD 08:18 → EMR 08:39 → EDBEDREQ 08:46 → INTOOBSV 09:05 → 2W 09:05 → EDBEDREQ 09:12 → 2W 10:50 → OBSVTOIN 07-02 09:42 → 2E 07-05 15:42
PROC: 0DH63UZ Insertion of Feeding Device into Stomach, Percutaneous Approach (ICD-10-PCS; principal; 2017-07-03 10:48)
DX: A41.9 Sepsis, unspecified organism (principal); J18.9 Pneumonia, unspecified organism; J96.01 Acute respiratory failure with hypoxia; G93.40 Encephalopathy, unspecified; E87.2 Acidosis; F09 Unspecified mental disorder due to known physiological condition; I12.9 Hypertensive chronic kidney disease with stage 1 through stage 4 chronic kidney disease, or unspecified chronic kidney disease; E11.22 Type 2 diabetes mellitus with diabetic chronic kidney disease; N18.9 Chronic kidney disease, unspecified; I16.0 Hypertensive urgency; Z86.73 Personal history of transient ischemic attack (TIA), and cerebral infarction without residual deficits; K43.9 Ventral hernia without obstruction or gangrene; Z93.3 Colostomy status; F03.90 Unspecified dementia, unspecified severity, without behavioral disturbance, psychotic disturbance, mood disturbance, and anxiety; K21.9 Gastro-esophageal reflux disease without esophagitis; R13.10 Dysphagia, unspecified; R62.7 Adult failure to thrive; E88.09 Other disorders of plasma-protein metabolism, not elsewhere classified
CPT/HCPCS: 36415; 36600; 71045; 74230; 80048; 80053; 80061; 80202; 81003; 82270; 82550; 82553; 82607; 82728; 82746; 82803; 82962; 82977; 83036; 83540; 83550; 83605; 83690; 83735; 83880; 84100; 84439; 84443; 84484; 84550; 85025; 85044; 85610; 85730; 86140; 86710; 87040; 87081; 87181; 93005; 93306; 93970; 94003; 94150; 94640; 94660; 94760; 99285; J1815; J7620; J8499

== ENCOUNTER 2018-07-17 12:54 | Inpatient (IN) | payer MEDICARE, OTHER ==
[~2018-07-17] VITALS: Ht 177.8 cm; Wt 87.1 kg
[~2018-07-17 12:54] MED LIST changes: +LEVOFLOXAC250 MG/10 GT
[2018-07-17 13:06] VITALS: BP 107/60
--- NOTE | 2018-07-17 13:06 | NUR ---
ED Nurse Note: Pt brought in by ambulance from [facility] due black tarry stool since this morning. Referrd by Dr gramajo. AAO x1, non ambulatory w/ no respiratory distress. Noted with G tube and colostomy bag.
[2018-07-17] MEDS ORDERED: Pantoprazole Inj IV ONE (13:15)
[2018-07-17] MEDS ORDERED: IPRATROPIU0.2 MG/1 M HHN (13:19)
--- NOTE | 2018-07-17 13:29 | NUR ---
HAND-OFF: Report given to Tabitha CARLSON.
--- NOTE | 2018-07-17 13:34 | Emergency Room Report ---
History of Present Illness General Chief Complaint: Gastrointestinal Bleed Source: Patient, EMS, PMD Present Illness HPI Patient is sent in for alleged black and tarry bowel movements. He denies vomiting at this time. He does have a cough. He denies chest pain or shortness of breath. He does feel dehydrated at this time. The patient is a poor historian. He is extremely hard of hearing. No further history is available. The patient has a colostomy. This is where the black stools appearing. He was admitted a year ago with these discharge diagnoses: Acute hypoxemic respiratory failure requiring BiPAP, resolved Hypertensive urgency, resolved Sepsis secondary to pneumonia Pneumonia Anemia Diabetes mellitus with the diabetic nephropathy Chronic renal insufficiency Bifascicular bundle branch block History of CVA GERD Dysphagia Status post PEG placement 07/03/2017 G-tube Encephalopathy Diverging colostomy Dementia with behavioral issues Allergies: Coded Allergies: No Known Allergies (Verified , 12/29/06) Patient History Limited by: medical condition Past Medical History: see triage record, old chart reviewed Past Surgical History: other - colostomy, G tube Social History: Denies: alcohol use Social History Narrative residential facility Reviewed Nursing Documentation: PMH: Agreed; PSxH: Agreed Nursing Documentation-PMH Hx Cardiac Problems: Yes Hx Hypertension: Yes Hx Diabetes: Yes Hx Cancer: No Hx Gastrointestinal Problems: Yes - colostomy Hx Neurological Problems: Yes - dementia Hx Cerebrovascular Accident: Yes Hx Dementia: Yes Review of Systems All Other Systems: limited Physical Exam Vital Signs Date Time Temp Pulse Resp B/P (MAP) Pulse Ox O2 Delivery O2 Flow Rate FiO2 07/17/18 12:55 97.3 104 24 96/67 (77) 94 07/17/18 13:06 Room Air Sp02 EP Interpretation: reviewed, normal General Appearance: no apparent distress, alert, thin, Chronically Ill Head: normocephalic Eyes: bilateral eye conjunctivae pale ENT: dry mucus membranes Neck: supple Respiratory: rhonchi Cardiovascular #1: regular rate, rhythm, no edema Cardiovascular #2: 2+ radial (R) Gastrointestinal: soft, no mass, non-distended, other - g tube, cholostomy with black stool Rectal: heme positive stool Genitourinary: normal inspection Musculoskeletal: back normal, normal range of motion Neurologic: alert, other - atrophy, oriented - X2 Psychiatric: mood/affect normal Skin: normal inspection, warm/dry Medical Decision Making Diagnostic Impression: Primary Impression: GI bleed Qualified Codes: K92.1 - Melena Additional Impressions: Renal failure Qualified Codes: N17.9 - Acute kidney failure, unspecified Right lower lobe consolidation ER Course Patient presents with alleged melena. Differential includes GI bleed, iron ingestion, is on exam pneumonia, exacerbation of COPD amongst others. Evaluation will be with EKG, chest x-ray, abdominal film and labs including blood cultures and lactate. The patient will be treated with IV hydration and Protonix. Consideration for antibiotics if there is evidence of lung infiltrates. Clinically the patient is dehydrated. EKG LAD and RBBB. CXR R lateral nodule and possible chronic effusion. NSBGP, no obstruction. Low H/H. Elevated BUN and creatinine. Initial lactic acid elevated. Active bleeding and low H/H. Ordered blood to start. Discussed risk and benefits with patient -unknown how much understanding but patient agreed to transfusion. RLL process (less than in February) leukocytosis - start antibiotics. Discussed with Dr. Sin. Blood infusing and tolerated well. Laboratory Tests Test 07/17/18 13:50 07/17/18 13:52 White Blood Count 13.1 K/UL (4.8-10.8) H Red Blood Count 3.16 M/UL (4.70-6.10) L Hemoglobin 8.4 G/DL (14.2-18.0) L Hematocrit 27.2 % (42.0-52.0) L Mean Corpuscular Volume 86 FL (80-99) Mean Corpuscular Hemoglobin 26.6 PG (27.0-31.0) L Mean Corpuscular Hemoglobin Concent 30.9 G/DL (32.0-36.0) L Red Cell Distribution Width 17.7 % (11.6-14.8) H Platelet Count 369 K/UL (150-450) Mean Platelet Volume 7.4 FL (6.5-10.1) Neutrophils (%) (Auto) 73.0 % (45.0-75.0) Lymphocytes (%) (Auto) 19.1 % (20.0-45.0) L Monocytes (%) (Auto) 5.6 % (1.0-10.0) Eosinophils (%) (Auto) 1.4 % (0.0-3.0) Basophils (%) (Auto) 0.8 % (0.0-2.0) Prothrombin Time 10.8 SEC (9.30-11.50) Prothrombin Time INR 1.0 (0.9-1.1) PTT 30 SEC (23-33) Sodium Level 146 MMOL/L (136-145) H Potassium Level 3.8 MMOL/L (3.5-5.1) Chloride Level 109 MMOL/L (98-107) H Carbon Dioxide Level 27 MMOL/L (21-32) Anion Gap 10 mmol/L (5-15) Blood Urea Nitrogen 61 mg/dL (7-18) H Creatinine 2.2 MG/DL (0.55-1.30) H Estimate Glomerular Filtration Rate mL/min (>60) Glucose Level 107 MG/DL (74-106) H Lactic Acid Level 2.30 mmol/L (0.4-2.0) H Calcium Level 8.9 MG/DL (8.5-10.1) Total Bilirubin 0.1 MG/DL (0.2-1.0) L Aspartate Amino Transferase (AST) 17 U/L (15-37) Alanine Aminotransferase (ALT) 21 U/L (12-78) Alkaline Phosphatase 81 U/L (46-116) Total Creatine Kinase 34 U/L (26-308) Troponin I 0.000 ng/mL (0.000-0.056) Total Protein 7.1 G/DL (6.4-8.2) Albumin 2.5 G/DL (3.4-5.0) L Globulin 4.6 g/dL Albumin/Globulin Ratio 0.5 (1.0-2.7) L Lipase 72 U/L (73-393) L Urine Color Pale yellow Urine Appearance Clear Urine pH 5 (4.5-8.0) Urine Specific [place] 1.015 (1.005-1.035) Urine Protein 2+ (NEGATIVE) H Urine Glucose (UA) Negative (NEGATIVE) Urine Ketones Negative (NEGATIVE) Urine Blood Negative (NEGATIVE) Urine Nitrite Negative (NEGATIVE) Urine Bilirubin Negative (NEGATIVE) Urine Urobilinogen Normal MG/DL (0.0-1.0) Urine Leukocyte Esterase 1+ (NEGATIVE) H Urine RBC 0 /HPF (0 - 0) Urine WBC 0-2 /HPF (0 - 0) Urine Squamous Epithelial Cells Occasional /LPF Urine Bacteria Occasional /HPF (NONE) EKG Diagnostic Results Rate: normal Rhythm: NSR ST Segments: no acute changes - bifascicular block Rhythm Strip Diag. Results EP Interpretation: yes Rhythm: NSR, no PVC's, no ectopy Chest X-Ray Diagnostic Results Chest X-Ray Diagnostic Results : Chest X-Ray Ordered: Yes EP Interpretation: Yes Interpretation: no pneumothorax, other - RLL nodule and possible infiltrate with small effusion Impression: Other Electronically Signed by: Electronically signed by Pranay York MD Other X-Ray Diagnostic Results Other X-Ray Diagnostic Results : X-Ray ordered: abd # of Views/Limited Vs Complete: 2 View Indication: Other EP Interpretation: Yes Interpretation: nonspecific bowel gas, no sbo, other - inc stool Impression: Other Electronically Signed by: Electronically signed by Pranay York MD Last Vital Signs Date Time Temp Pulse Resp B/P (MAP) Pulse Ox O2 Delivery O2 Flow Rate FiO2 07/17/18 18:25 97.4 89 19 106/67 100 Room Air Status: improved Disposition: ADMITTED INPATIENT Condition: Serious Pranay York MD July 17, 2018 13:34
--- NOTE | 2018-07-17 14:05 | Diagnostic Imaging Report ---
EXAM: XR Chest, 1 View CLINICAL HISTORY: ABD PAIN TECHNIQUE: Frontal view of the chest. COMPARISON: Chest x-ray dated 07/01/17 FINDINGS: Lungs: Interval improvement in right lower lung aeration, with mild residual reticular interstitial opacities the right lung base. Remainder of the lungs appear clear. Pleural space: Unremarkable. The costophrenic angles are sharp. No visible pneumothorax. Heart: Unremarkable. No cardiomegaly. Mediastinum: Unremarkable. Bones/joints: Unremarkable. Vasculature: Atherosclerotic calcifications are noted within the aortic arch. Tubes, lines and devices: EKG leads overlie the thorax. IMPRESSION: Interval improvement in right lower lung aeration, with mild residual reticular interstitial opacities the right lung base.
[2018-07-17 14:09] LABS: BASOPHILS % (AUTO) 0.8 % (0.0-2.0); EOSINOPHILS % (AUTO) 1.4 % (0.0-3.0); HEMATOCRIT 27.2 % (42.0-52.0); HEMOGLOBIN 8.4 G/DL (14.2-18.0); LYMPHOCYTES % (AUTO) 19.1 % (20.0-45.0); MEAN CORPUSCULAR VOLUME 86 FL (80-99); MONOCYTES % (AUTO) 5.6 % (1.0-10.0); PLATELET COUNT 369 K/UL (150-450); RED BLOOD COUNT 3.16 M/UL (4.70-6.10); RED CELL DISTRIBUTION WIDTH 17.7 % (11.6-14.8); WHITE BLOOD COUNT 13.1 K/UL (4.8-10.8)
[2018-07-17 14:13] LABS: APPEARANCE,URINE CLEAR; BILIRUBIN, URINE NEGATIVE (NEGATIVE); COLOR,URINE PALE YELLOW; GLUCOSE, URINE (UA) NEGATIVE (NEGATIVE); KETONES,URINE NEGATIVE (NEGATIVE); LEUKOCYTE ESTERASE ,URINE 1+ (NEGATIVE); NITRITE,URINE NEGATIVE (NEGATIVE); PH,URINE 5 (4.5-8.0); PROTEIN,URINE 2+ (NEGATIVE); UROBILINOGEN,URINE NORMAL MG/DL (0.0-1.0)
[2018-07-17 14:20] LABS: ANION GAP 10 mmol/L (5-15); BLOOD UREA NITROGEN 61 mg/dL (7-18); CALCIUM 8.9 MG/DL (8.5-10.1); CARBON DIOXIDE 27 MMOL/L (21-32); CHLORIDE 109 MMOL/L (98-107); CREATININE 2.2 MG/DL (0.55-1.30); POTASSIUM 3.8 MMOL/L (3.5-5.1); SODIUM 146 MMOL/L (136-145)
[2018-07-17 14:24] LABS: ALANINE AMINOTRANSFERASE 21 U/L (12-78); ALBUMIN 2.5 G/DL (3.4-5.0); ALBUMIN/GLOBULIN RATIO 0.5 (1.0-2.7); ALKALINE PHOSPHATASE 81 U/L (46-116); ASPARTATE AMINO TRANSFERASE 17 U/L (15-37); BILIRUBIN,TOTAL 0.1 MG/DL (0.2-1.0); CREATINE KINASE 34 U/L (26-308)
[2018-07-17 15:21] VITALS: BP 103/43
--- NOTE | 2018-07-17 15:21 | NUR ---
ED Nurse Note: No wound was found on patient. Vital signs stable, pt non-verbal, reacts to pain, opens eyes spontaneously. Will cont to monitor.
[2018-07-17] MEDS ORDERED: Piperacillin/Tazobactam 3.375 GM in NS 110 ML IVPB ONE (15:45)
[2018-07-17 15:55] VITALS: BP 105/58
--- NOTE | 2018-07-17 15:55 | NUR ---
ED Nurse Note: Red packed cell blood transfusion initiated at this time at 20G L forearm IV. Temp 97.3F HR 87 BP 105/58.
[2018-07-17 16:10] VITALS: BP 129/62
--- NOTE | 2018-07-17 16:10 | NUR ---
ED Nurse Note: 15 mins after the start of transfusion. No adverse reaction noted. Vital signs at this time: Temp 97.4F HR 88 BP 129/62.
--- NOTE | 2018-07-17 16:34 | Consultation ---
Consult Note Consult Note asked to eval for renal failure Patient is sent in for alleged black and tarry bowel movements. He denies vomiting at this time. He does have a cough. He denies chest pain or shortness of breath. He does feel dehydrated at this time. No Known Allergies (Verified , 12/29/06) Limited by: medical condition Past Medical History: see triage record Past Surgical History: other - colostomy, G tube Social History Narrative intermediate facility Reviewed Nursing Documentation: PMH: Agreed; PSxH: Agreed Hx Cardiac Problems: Yes Hx Hypertension: Yes Hx Diabetes: Yes Hx Cancer: No Hx Gastrointestinal Problems: Yes - colostomy Hx Neurological Problems: Yes - dementia Hx Cerebrovascular Accident: Yes Hx Dementia: Yes Assessment/Plan Renal failure- Appears pre renal ? underlying Renal Anemia DM Dementia Pneumonia Hydrate Anemia GI maricruzal Gregorio Hoyos MD July 17, 2018 16:34
[2018-07-17 17:50] VITALS: BP 106/67
--- NOTE | 2018-07-17 17:55 | NUR ---
ED Nurse Note: Report given to Daniel RN at ext [phone]. Pt to be transfered to room 206-1 on [facility] per protocol. Second bag of RPC endorsed to 2 Jonathan RN.
--- NOTE | 2018-07-17 18:19 | NUR ---
ED Nurse Note: patrick michaels at the bedside
--- NOTE | 2018-07-17 18:30 | NUR ---
NURSE NOTES: Received report from Heraclio. Patient arrived with blood tranfusion running @ 150ml/hr on right FA 20g. V/s - 138/67, 88, 97F and 95% on RA. RR- 18. Patient was put on monitoring manager. Patient is on room air breathing even and unlabored. patient is able to follow commands and is nonverbal.
--- NOTE | 2018-07-17 19:10 | NUR ---
HAND-OFF: Report given to ALDO Taveras.
--- NOTE | 2018-07-17 19:20 | NUR ---
NURSE NOTES: Received report from ALDO Sanchez. Patient is awake lying semi-reyez's; resting comfortably. No signs of acute distress noted; denies pain at this time. AOx1-2; able to make needs known to a degree. Able to follow commands. Checked IV sites, lines, and IV rate; patent and running. Patient receiving 1st unit of PRBCs. No erythema, bleeding, or infiltration noted. Skin assessment performed; no open wounds noted. Skin is intact except for hyperpigmentation on sacral/buttocks area and mild redness on left heel. Bed at lowest position, brakes on, siderails up x3. Call light within reach. Will continue to monitor. Addendum: 07/18/18 at 0557 by DASHAWN MOON RN RN Wound photos taken of stage I resurfaced old wound on sacral/buttocks area.
--- NOTE | 2018-07-17 19:30 | NUR ---
NURSE NOTES: 1st unit of PRBCs successfully transfused. No adverse reaction noted. Patient tolerated well.
[2018-07-17 20:00] VITALS: BP 136/70
[2018-07-17] MEDS ORDERED: TYLENOL325 M1 GT (20:00)
[2018-07-17] MEDS ORDERED: LEVEMIR FL100 UNIT/1 SUBQ (20:00)
[2018-07-17] MEDS ORDERED: COSOPT EYE DROP10 M1 BOTH EYES (20:00)
[2018-07-17] MEDS ORDERED: CARDIZEM30 M1 GT (20:00)
[2018-07-17] MEDS ORDERED: ROBITUSSIN NIG237 ML PO (20:00)
--- NOTE | 2018-07-17 20:04 | NUR ---
NURSE NOTES: Called Dr. Sin regarding admission orders and to clarify with him if he wants to continue the 2nd unit of PRBCs ordered by ER . Awaiting callback.
--- NOTE | 2018-07-17 20:14 | NUR ---
NURSE NOTES: Received admission orders from Dr. Sin including discontinuing home medications. Noted and carried out.
--- NOTE | 2018-07-17 20:18 | NUR ---
NURSE NOTES: Per Dr. Sin's request, called Dr. Reese to clarify with him if another unit of PRBCs will be ordered. Received order for 2nd unit of PRBCs. Noted and carried out.
--- NOTE | 2018-07-17 20:23 | NUR ---
NURSE NOTES: Called Dr. Avelar for diet orders per Dr. Sin's request. Received order from Dr. Avelar to keep patient NPO except for medications. Noted and carried out.
--- NOTE | 2018-07-17 20:52 | NUR ---
NURSE NOTES: Unable to administer 1901 scheduled order for D5 1/2 NS @ 75 mls/hr at this time since 2nd unit of PRBCs is ready to be transfused.
[2018-07-17] MEDS ORDERED: Morphine Sulfate 2mg/ml Inj(IV/IM USE ONLY) IVP PRN (21:00)
[2018-07-17] MEDS ORDERED: Pantoprazole Inj IVP SCH (21:00)
[2018-07-17] MEDS ORDERED: Mylanta II UD 30ml ORAL PRN (21:00)
[2018-07-17] MEDS ORDERED: LORazepam Inj 2mg/ml 1ml IV PRN (21:00)
--- NOTE | 2018-07-17 21:21 | General Progress Note ---
Assessment/Plan Assessment/Plan: GI CONSULT Dictated ATSP for GI Bleed Message left for next of kin to call back to discuss EGD Thank you Keyanna Avelar MD Subjective Allergies: Coded Allergies: No Known Allergies (Verified , 12/29/06) Objective Last 24 Hour Vital Signs Date Time Temp Pulse Resp B/P (MAP) Pulse Ox O2 Delivery O2 Flow Rate FiO2 07/17/18 18:25 97.4 89 19 106/67 100 Room Air 07/17/18 17:50 97.4 89 19 106/67 100 Room Air 07/17/18 16:10 97.4 88 20 129/62 100 Room Air 07/17/18 15:55 97.3 87 19 105/58 100 Room Air 07/17/18 15:21 97.3 91 20 103/43 100 Room Air 07/17/18 13:06 97.3 104 24 107/60 100 Room Air 07/17/18 13:06 104 24 Room Air 07/17/18 12:55 97.3 104 24 96/67 (77) 94 Laboratory Tests 07/17/18 13:50: White Blood Count 13.1H, Red Blood Count 3.16L, Hemoglobin 8.4L, Hematocrit 27.2L, Mean Corpuscular Volume 86, Mean Corpuscular Hemoglobin 26.6L, Mean Corpuscular Hemoglobin Concent 30.9L, Red Cell Distribution Width 17.7H, Platelet Count 369, Mean Platelet Volume 7.4, Neutrophils (%) (Auto) 73.0, Lymphocytes (%) (Auto) 19.1L, Monocytes (%) (Auto) 5.6, Eosinophils (%) (Auto) 1.4, Basophils (%) (Auto) 0.8, Prothrombin Time 10.8, Prothromb Time International Ratio 1.0, Activated Partial Thromboplast Time 30, Sodium Level 146H, Potassium Level 3.8, Chloride Level 109H, Carbon Dioxide Level 27, Anion Gap 10, Blood Urea Nitrogen 61H, Creatinine 2.2H, Estimat Glomerular Filtration Rate , Glucose Level 107H, Lactic Acid Level 2.30H, Calcium Level 8.9, Total Bilirubin 0.1L, Aspartate Amino Transf (AST/SGOT) 17, Alanine Aminotransferase ( ALT/SGPT) 21, Alkaline Phosphatase 81, Total Creatine Kinase 34, Troponin I 0.000, Total Protein 7.1, Albumin 2.5L, Globulin 4.6, Albumin/Globulin Ratio 0.5L, Lipase 72L 07/17/18 13:52: Urine Color Pale yellow, Urine Appearance Clear, Urine pH 5, Urine Specific [place] 1.015, Urine Protein 2+H, Urine Glucose (UA) Negative, Urine Ketones Negative, Urine Blood Negative, Urine Nitrite Negative, Urine Bilirubin Negative , Urine Urobilinogen Normal, Urine Leukocyte Esterase 1+H, Urine RBC 0, Urine WBC 0-2, Urine Squamous Epithelial Cells Occasional, Urine Bacteria Occasional 07/17/18 15:30: Lactic Acid Level 1.60 Height (Feet): 5 Height (Inches): 10.00 Weight (Pounds): 180 Keyanna Avelar MD July 17, 2018 21:21
[2018-07-17] MEDS: Pantoprazole Inj IVP SCH (21:59)
--- NOTE | 2018-07-17 22:50 | NUR ---
NURSE NOTES: Initiated transfusion of 2nd unit of PRBCs.
--- NOTE | 2018-07-17 23:45 | Consultation ---
DATE OF CONSULTATION: 07/17/2018 GASTROENTEROLOGY CONSULTATION CONSULTING PHYSICIAN: Keyanna Avelar M.D. CHIEF COMPLAINT: I was asked to see this patient by Dr. Rene Sin for evaluation of gastrointestinal bleeding. HISTORY OF PRESENT ILLNESS: The patient is an 82-year-old white man from a [place], who is minimally verbal, who comes into the hospital due to dark stools from his colostomy. The patient himself is unable to provide much history and most information is only available from the chart. Message was left to the family to discuss that there is no call back yet. The patient has a diverting colostomy and also the gastrostomy tube for long-term enteral access. The other medical problems as outlined below. There is a drop in his hematocrit from his previous measurement and he has received blood transfusion. PAST MEDICAL HISTORY: History of diverticulosis and diverticulitis, gastroesophageal reflux disease, hypertension, diabetes, chronic renal insufficiency with a creatinine of about 2.0, history of BiPAP use, anemia, sepsis, history of stroke, and history of gastrointestinal bleeding. FAMILY HISTORY: Noncontributory. SOCIAL HISTORY: The patient is from a [place] and he has had no recent history of smoking or drinking. He is fed by gastrostomy tube around the clock. REVIEW OF SYSTEMS: Unobtainable. PHYSICAL EXAMINATION: GENERAL: Debilitated elderly white man, seen in the emergency room, who is awake, but not very communicative. HEENT: Normocephalic and atraumatic. Dentition is poor. NECK: Supple. CHEST: Clear to auscultation. CARDIOVASCULAR: Revealed a regular rate. ABDOMEN: Soft. Good bowel sounds. There is left upper quadrant gastrostomy and the left lower quadrant diverting colostomy. EXTREMITIES: No edema. LABORATORY DATA: Noted. ASSESSMENT: This patient presents with melena. He has colostomy bag although at this time it appears to be no further melena in the bag, and therefore the bleeding may have stopped. The patient will be transfused and observed closely. I have left a message to the patient's family to call me to discuss an endoscopy. In the meantime, he is to be kept NPO and on proton pump inhibitors. RECOMMENDATIONS: Per above discussion and per orders written in the chart. Thank you for asking me to participate in the care of this patient. Keyanna Avelar M.D. DR: JANA JOB#: [id number] CC:
[2018-07-18] VITALS: BP 131/59
--- NOTE | 2018-07-18 02:05 | NUR ---
NURSE NOTES: 2nd unit of PRBCs successfully transfused. No adverse reaction noted. Patient tolerated well.
[2018-07-18] MEDS: D5 1/2NS 1,000 ML IV SCH ×3 (02:28→21:12)
--- NOTE | 2018-07-18 03:06 | NUR ---
NURSE NOTES: Patient is asleep lying semi-reyez's; resting comfortably. No signs of acute distress or pain noted at this time. G-tube flushed and patent.
[2018-07-18 04:00] VITALS: BP 129/57
[2018-07-18] MEDS: NovoLOG Insulin Flexpen SUBQ SCH ×4 (05:41→21:17)
[2018-07-18 07:19] LABS: BASOPHILS % (AUTO) 0.5 % (0.0-2.0); EOSINOPHILS % (AUTO) 1.9 % (0.0-3.0); HEMATOCRIT 31.3 % (42.0-52.0); HEMOGLOBIN 10.1 G/DL (14.2-18.0); LYMPHOCYTES % (AUTO) 17.4 % (20.0-45.0); MEAN CORPUSCULAR VOLUME 88 FL (80-99); MONOCYTES % (AUTO) 6.7 % (1.0-10.0); NEUTROPHILS % (AUTO) 73.5 % (45.0-75.0); PLATELET COUNT 263 K/UL (150-450); RED BLOOD COUNT 3.57 M/UL (4.70-6.10); RED CELL DISTRIBUTION WIDTH 16.2 % (11.6-14.8); WHITE BLOOD COUNT 10.1 K/UL (4.8-10.8)
--- NOTE | 2018-07-18 07:24 | NUR ---
HAND-OFF: Report given to ALDO Carmichael. Patient is asleep lying semi-reyez's; resting comfortably. In stable condition. Colostomy bag intact.
[2018-07-18 07:36] LABS: INR 1.1 (0.9-1.1)
[2018-07-18 07:43] LABS: ALANINE AMINOTRANSFERASE 16 U/L (12-78); ALBUMIN 2.2 G/DL (3.4-5.0); ALBUMIN/GLOBULIN RATIO 0.5 (1.0-2.7); ALKALINE PHOSPHATASE 71 U/L (46-116); ANION GAP 9 mmol/L (5-15); ASPARTATE AMINO TRANSFERASE 17 U/L (15-37); BILIRUBIN,TOTAL 0.3 MG/DL (0.2-1.0); BLOOD UREA NITROGEN 56 mg/dL (7-18); CALCIUM 8.5 MG/DL (8.5-10.1); CARBON DIOXIDE 24 MMOL/L (21-32); CHLORIDE 114 MMOL/L (98-107); CREATININE 2.1 MG/DL (0.55-1.30); POTASSIUM 3.9 MMOL/L (3.5-5.1); SODIUM 147 MMOL/L (136-145)
[2018-07-18 07:53] LABS: CHOLESTEROL 108 MG/DL (< 200); CREATINE KINASE 33 U/L (26-308); FERRITIN 42 NG/ML (8-388); GAMMA GLUTAMYL TRANSPEPTIDASE 9 U/L (5-85); HDL CHOLESTEROL 38 MG/DL (40-60); PHOSPHORUS 3.4 MG/DL (2.5-4.9); TRIGLYCERIDES 77 MG/DL (30-150)
[2018-07-18 08:00] VITALS: BP 138/84
[2018-07-18 08:03] LABS: % IRON SATURATION 51 % (15-50); IRON 108 ug/dL (50-175); TOTAL IRON BINDING CAPACITY 213 ug/dL (250-450)
[2018-07-18] MEDS ORDERED: Tubing Blood Filter IV ONE (08:06)
[2018-07-18] MEDS ORDERED: D5 1/2NS 1000ml IV ONE (08:06)
[2018-07-18] MEDS ORDERED: NS 275ml ONE (08:06)
--- NOTE | 2018-07-18 08:38 | NUR ---
NURSE NOTES: Pt in low position, bed alarm on, HOB in fowlers, call light at bedside, Pt Ox1 slightly verbal, denies pain, Pt NPO for EGD possibility ok to give meds, LABs WNL, pt needs to be turned Q2hrs, no s/s of distress or sob noted.
[2018-07-18] MEDS: Pantoprazole Inj IVP SCH ×2 (09:37→21:14)
--- NOTE | 2018-07-18 10:00 | General Progress Note ---
Assessment/Plan Assessment/Plan: Assessment - Reported GIB,but no melena in ostomy since admit - anemia - GT dependent Recommendations - keep NPO - IVF - PPI - follow CBC - await family callback re EGD Subjective Allergies: Coded Allergies: No Known Allergies (Verified , 12/29/06) Subjective patient awake non communicative no BM in ostomy bag since admit s/p transfusion H&H higher no call from family yet advised RN to try contacting family Objective Last 24 Hour Vital Signs Date Time Temp Pulse Resp B/P (MAP) Pulse Ox O2 Delivery O2 Flow Rate FiO2 07/18/18 09:13 Room Air 07/18/18 08:00 97.5 94 20 138/84 (102) 93 07/18/18 04:00 83 07/18/18 04:00 97.7 86 18 129/57 (81) 95 07/18/18 00:00 98.1 85 16 131/59 (83) 93 07/18/18 00:00 84 07/17/18 23:40 Room Air 07/17/18 20:00 88 07/17/18 20:00 97.3 89 16 136/70 (92) 94 07/17/18 18:25 97.4 89 19 106/67 100 Room Air 07/17/18 17:50 97.4 89 19 106/67 100 Room Air 07/17/18 16:10 97.4 88 20 129/62 100 Room Air 07/17/18 15:55 97.3 87 19 105/58 100 Room Air 07/17/18 15:21 97.3 91 20 103/43 100 Room Air 07/17/18 13:06 97.3 104 24 107/60 100 Room Air 07/17/18 13:06 104 24 Room Air 07/17/18 12:55 97.3 104 24 96/67 (77) 94 Intake and Output 07/17/18 07/18/18 19:00 07:00 Intake Total 560 ml 650 ml Balance 560 ml 650 ml Intake Free Water 60 ml IV Total 560 ml 340 ml Blood Product 250 ml # Voids 1 2 Laboratory Tests 07/17/18 13:50: White Blood Count 13.1H, Red Blood Count 3.16L, Hemoglobin 8.4L, Hematocrit 27.2L, Mean Corpuscular Volume 86, Mean Corpuscular Hemoglobin 26.6L, Mean Corpuscular Hemoglobin Concent 30.9L, Red Cell Distribution Width 17.7H, Platelet Count 369, Mean Platelet Volume 7.4, Neutrophils (%) (Auto) 73.0, Lymphocytes (%) (Auto) 19.1L, Monocytes (%) (Auto) 5.6, Eosinophils (%) (Auto) 1.4, Basophils (%) (Auto) 0.8, Prothrombin Time 10.8, Prothromb Time International Ratio 1.0, Activated Partial Thromboplast Time 30, Sodium Level 146H, Potassium Level 3.8, Chloride Level 109H, Carbon Dioxide Level 27, Anion Gap 10, Blood Urea Nitrogen 61H, Creatinine 2.2H, Estimat Glomerular Filtration Rate , Glucose Level 107H, Lactic Acid Level 2.30H, Calcium Level 8.9, Total Bilirubin 0.1L, Aspartate Amino Transf (AST/SGOT) 17, Alanine Aminotransferase ( ALT/SGPT) 21, Alkaline Phosphatase 81, Total Creatine Kinase 34, Troponin I 0.000, Total Protein 7.1, Albumin 2.5L, Globulin 4.6, Albumin/Globulin Ratio 0.5L, Lipase 72L 07/17/18 13:52: Urine Color Pale yellow, Urine Appearance Clear, Urine pH 5, Urine Specific [place] 1.015, Urine Protein 2+H, Urine Glucose (UA) Negative, Urine Ketones Negative, Urine Blood Negative, Urine Nitrite Negative, Urine Bilirubin Negative , Urine Urobilinogen Normal, Urine Leukocyte Esterase 1+H, Urine RBC 0, Urine WBC 0-2, Urine Squamous Epithelial Cells Occasional, Urine Bacteria Occasional 07/17/18 15:30: Lactic Acid Level 1.60 07/18/18 06:00: White Blood Count 10.1, Red Blood Count 3.57L, Hemoglobin 10.1L, Hematocrit 31.3L, Mean Corpuscular Volume 88, Mean Corpuscular Hemoglobin 28.3, Mean Corpuscular Hemoglobin Concent 32.2, Red Cell Distribution Width 16.2H, Platelet Count 263, Mean Platelet Volume 6.8, Neutrophils (%) (Auto) 73.5, Lymphocytes (%) (Auto) 17.4L, Monocytes (%) (Auto) 6.7, Eosinophils (%) (Auto) 1.9, Basophils (%) (Auto) 0.5, Prothrombin Time 11.6H, Prothromb Time International Ratio 1.1, Activated Partial Thromboplast Time 32, Sodium Level 147H, Potassium Level 3.9, Chloride Level 114H, Carbon Dioxide Level 24, Anion Gap 9, Blood Urea Nitrogen 56H, Creatinine 2.1H, Estimat Glomerular Filtration Rate , Glucose Level 89, Calcium Level 8.5, Total Bilirubin 0.3, Aspartate Amino Transf (AST/SGOT) 17, Alanine Aminotransferase (ALT/SGPT) 16, Alkaline Phosphatase 71, Total Creatine Kinase 33, Total Protein 6.5, Albumin 2.2L, Globulin 4.3, Albumin/Globulin Ratio 0.5L, Hemoglobin A1c 6.4H, Uric Acid 6.4, Phosphorus Level 3.4, Magnesium Level 2.0, Iron Level 108, Total Iron Binding Capacity 213L, Percent Iron Saturation 51H, Unsaturated Iron Binding 105L, Ferritin 42, Gamma Glutamyl Transpeptidase 9, C-Reactive Protein, Quantitative 3.3H, Pro-B-Type Natriuretic Peptide 1134H, Triglycerides Level 77, Cholesterol Level 108, LDL Cholesterol 59, HDL Cholesterol 38L, Cholesterol/HDL Ratio 2.8L, Vitamin B12 Level 681, Folate 9.9, Thyroid Stimulating Hormone (TSH) 3.208 Height (Feet): 5 Height (Inches): 10.00 Weight (Pounds): 180 Objective Elderly WM NCAT supple CTA RR abd soft, GT in good position, ostomy empty no edema Keyanna Avelar MD July 18, 2018 10:00
[2018-07-18 12:00] VITALS: BP 150/78
--- NOTE | 2018-07-18 13:33 | NUR ---
CASE MANAGEMENT: INITIAL REVIEW 82 YO M LUCIANA FROM [facility] CC: GI BLEED PMHx: HTN. DM. DEMENTIA. CVA. COLOSTOMY. SI:GI BLEED T 97.3 HR 104 RR 24 B/P 96/67 SATS 94% ON RA WBC 13.1 NA 146 CL 109 BUN 61 CR 2.2 GLU 107 TBILI 0.1 LIPASE 72 IS: ZOFRAN IV X1 PROTONIX IV X1 LEVAQUIN IV X1 NS BOLUS X1 PATIENT ADMITTED TO TELE 07/17/2018 @ 1325 DCP: PATIENT TO BE DISCHARGED TO SNF ONCE MEDICALLY CLEARED. PLAN OF CARE: - keep NPO - IVF - PPI - follow CBC - await family callback re EGD
--- NOTE | 2018-07-18 13:36 | NUR ---
CASE MANAGEMENT: [facility] 82Y[facility]: BLACK TARRY STOOL SI: GI BLEED . ANEMIA . PNA . RENAL FAILURE T 97.3 HR 104 RR 24 BP 96/67 SAT 94% ROOM AIR H/H 8.4/27.2 LACTIC ACID 2.30 NA 146 BUN 61 CR 2.2 IS: PROTONIX IV X1 ZOFRAN IV X1 NS IVF BOLUS X1 LEVOFLOXACIN IV X1 ZOSYN IV X1 NPO FOR EGD PRBC 1UNIT X1 PATIENT ADMITTED TO TELEMETRY UNIT 07/17/2018 DCP: PATIENT IS FROM [facility]
--- NOTE | 2018-07-18 14:20 | NUR ---
RD ASSESSMENT & RECOMMENDATIONS SEE CARE ACTIVITY FOR COMPLETE ASSESSMENT DAILY ESTIMATED NEEDS: Needs based on DM, cardiac, wound/ 78.8k 25-30 kcals/kg 3071-5713 total kcals 1.25-1.5 g protein/kg 99-118 g total protein 25-30 mL/kg 2236-9673 total fluid mLs NUTRITION DIAGNOSIS: *Swallowing difficulty R/T dysphagia, decreased cognitive fxn as evidenced by pt is GT dependent ENTERAL NUTRITION RECOMMENDATIONS: Glucerna 1.5 @ 55ml/hr x 24 hrs to provide 1320ml, 1980kcal, 109g prot, 1002ml free water * As medically able, Start Glucerna 1.5 @ 25ml/hr x 6 hrs, advance 10ml q 4-6 hrs as tolerated to goal rate. * HOB over 30 degrees/ water flush per MD. ----- ADDITIONAL RECOMMENDATIONS: * Re-calibrated bedscale wt for accurate CBW * Monitor lytes daily w/ TF, replete as needed * Wound care: add via GT Mahendra BID + Vit C 250mg daily * Suspected water deficits (elev na, elev BUN); rec to increased water flushes
--- NOTE | 2018-07-18 14:22 | Nephrology Progress Note ---
Assessment/Plan Problem List: (1) Renal failure (2) Anemia (3) HTN (hypertension) (4) Right lower lobe consolidation Assessment Renal failure- Appears pre renal ? underlying Renal Anemia DM Dementia Pneumonia Plan Hydrate Anemia kenyon GI eval antibiotics per orders Subjective ROS Limited/Unobtainable: No Constitutional: Reports: malaise Objective Objective Last 24 Hour Vital Signs Date Time Temp Pulse Resp B/P (MAP) Pulse Ox O2 Delivery O2 Flow Rate FiO2 07/18/18 12:00 97.0 90 22 150/78 (102) 92 07/18/18 11:52 90 07/18/18 09:13 Room Air 07/18/18 08:00 97.5 94 20 138/84 (102) 93 07/18/18 07:44 86 07/18/18 04:00 83 07/18/18 04:00 97.7 86 18 129/57 (81) 95 07/18/18 00:00 98.1 85 16 131/59 (83) 93 07/18/18 00:00 84 07/17/18 23:40 Room Air 07/17/18 20:00 88 07/17/18 20:00 97.3 89 16 136/70 (92) 94 07/17/18 18:25 97.4 89 19 106/67 100 Room Air 07/17/18 17:50 97.4 89 19 106/67 100 Room Air 07/17/18 16:10 97.4 88 20 129/62 100 Room Air 07/17/18 15:55 97.3 87 19 105/58 100 Room Air 07/17/18 15:21 97.3 91 20 103/43 100 Room Air Intake and Output 07/17/18 07/18/18 18:59 06:59 Intake Total 560 ml 575 ml Balance 560 ml 575 ml Intake Free Water 60 ml IV Total 560 ml 265 ml Blood Product 250 ml # Voids 1 2 Laboratory Tests 07/17/18 15:30: Lactic Acid Level 1.60 07/18/18 06:00: White Blood Count 10.1, Red Blood Count 3.57L, Hemoglobin 10.1L, Hematocrit 31.3L, Mean Corpuscular Volume 88, Mean Corpuscular Hemoglobin 28.3, Mean Corpuscular Hemoglobin Concent 32.2, Red Cell Distribution Width 16.2H, Platelet Count 263, Mean Platelet Volume 6.8, Neutrophils (%) (Auto) 73.5, Lymphocytes (%) (Auto) 17.4L, Monocytes (%) (Auto) 6.7, Eosinophils (%) (Auto) 1.9, Basophils (%) (Auto) 0.5, Prothrombin Time 11.6H, Prothromb Time International Ratio 1.1, Activated Partial Thromboplast Time 32, Sodium Level 147H, Potassium Level 3.9, Chloride Level 114H, Carbon Dioxide Level 24, Anion Gap 9, Blood Urea Nitrogen 56H, Creatinine 2.1H, Estimat Glomerular Filtration Rate , Glucose Level 89, Hemoglobin A1c 6.4H, Uric Acid 6.4, Calcium Level 8.5, Phosphorus Level 3.4, Magnesium Level 2.0, Iron Level 108, Total Iron Binding Capacity 213L, Percent Iron Saturation 51H, Unsaturated Iron Binding 105L, Ferritin 42, Total Bilirubin 0.3, Gamma Glutamyl Transpeptidase 9, Aspartate Amino Transf (AST/SGOT) 17, Alanine Aminotransferase (ALT/SGPT) 16, Alkaline Phosphatase 71, Total Creatine Kinase 33, C-Reactive Protein, Quantitative 3.3H , Pro-B-Type Natriuretic Peptide 1134H, Total Protein 6.5, Albumin 2.2L, Globulin 4.3, Albumin/Globulin Ratio 0.5L, Triglycerides Level 77, Cholesterol Level 108, LDL Cholesterol 59, HDL Cholesterol 38L, Cholesterol/HDL Ratio 2.8L, Vitamin B12 Level 681, Folate 9.9, Thyroid Stimulating Hormone (TSH) 3.208 Height (Feet): 5 Height (Inches): 10.00 Weight (Pounds): 180 General Appearance: no apparent distress Cardiovascular: tachycardia Respiratory/Chest: decreased breath sounds Abdomen: distended Gregorio Hoyos MD July 18, 2018 14:22
--- NOTE | 2018-07-18 15:10 | NUR ---
CONSENT FOR EDG NOTES: contacted daughter for patient and she agreed with performing and EDG, Charge nurse Mervin confirmed via telephone consent, Md Avelar notified of procedure.
--- NOTE | 2018-07-18 15:15 | NUR ---
NURSE NOTES: P200 mattress on
--- NOTE | 2018-07-18 15:37 | Consultation ---
History of Present Illness General Date patient seen: July 18, 2018 Chief Complaint: Gastrointestinal Bleed Reason for Consultation: gi bleed Present Illness HPI 82 year old male known to me from prior who was admitted for melena in colostomy bag. I initially evaluated patient for possible colostomy takedown last year where he was not verbal but communicative. Now he seems to have declined a fair amount and is mainly bedbound and minimally responsive. He was not a candidate for takedown at that time. Now presents with melena in ostomy. Labs noted. Surgery called to evaluate and assist with care. patient seen, chart reviewed, patient examined. Allergies: Coded Allergies: No Known Allergies (Verified , 12/29/06) Medication History Scheduled Diltiazem Hcl* (Cardizem*), 30 MG PO Q8HR, (Reported) Donepezil Hcl* (Aricept*), 5 MG ORAL DAILY, (Reported) Dorzolamide Hcl/Timolol Maleat (Cosopt Eye Drops), 10 ML OP BID, (Reported) Insulin Detemir (Levemir), 30 UNIT SUBQ 9 PM , (Reported) Insulin Detemir (Levemir Flexpen), 75 SUBQ DAILY, (Reported) Multivitamin (Multi Vitamin Daily), 1 TAB ORAL DAILY, (Reported) Potassium Chloride (Potassium Chloride), 20 MEQ ORAL DAILY, (Reported) Scheduled PRN Acetaminophen (Tylenol), 650 MG PO Q6HR PRN for Mild Pain/Temp > 100.5, ( Reported) Dextromethorphan Hb/Doxylamine (Robitussin Nighttime Cough Dm), 10 ML PO Q8HR PRN for For Cough, (Reported) Ipratropium [place] 0.5MG/2.5ML (Ipratropium [place] 0.5MG/2.5ML), 0.5 MG HHN Q6H PRN for Shortness of Breath, (Reported) Discontinued Medications Levofloxacin (Levofloxacin), 250 MG GT DAILY, (Reported) Discontinued Reason: Pt stopped taking med Patient History Limited by: medical condition History Provided By: Medical Record, PMD Healthcare decision maker Resuscitation status Full Code Advanced Directive on File Past Medical/Surgical History Past Medical/Surgical History: (1) Diverticulitis (2) GERD (gastroesophageal reflux disease) (3) DM (diabetes mellitus) (4) CRI (chronic renal insufficiency) (5) BiPAP (biphasic positive airway pressure) dependence (6) Hypertensive urgency (7) Acute hypoxemic respiratory failure (8) diverting colostomy (9) Abdominal pain (10) Oxygen desaturation (11) Sepsis (12) Hypoalbuminemia (13) CVA (cerebral infarction) (14) Right lower lobe consolidation (15) Renal failure (16) GI bleed (17) Anemia (18) HTN (hypertension) Review of Systems ROS Narrative cannot obtain given medical condition Physical Exam General Appearance: no apparent distress Lines, tubes and drains: peripheral HEENT: mucous membranes moist Neck: normal inspection Respiratory/Chest: no respiratory distress, no accessory muscle use Cardiovascular/Chest: normal rate Abdomen: soft, no organomegaly, no mass, other Extremities: normal inspection Skin Exam: warm/dry Last 24 Hour Vital Signs Date Time Temp Pulse Resp B/P (MAP) Pulse Ox O2 Delivery O2 Flow Rate FiO2 07/18/18 12:00 97.0 90 22 150/78 (102) 92 07/18/18 11:52 90 07/18/18 09:13 Room Air 07/18/18 08:00 97.5 94 20 138/84 (102) 93 07/18/18 07:44 86 07/18/18 04:00 83 07/18/18 04:00 97.7 86 18 129/57 (81) 95 07/18/18 00:00 98.1 85 16 131/59 (83) 93 07/18/18 00:00 84 07/17/18 23:40 Room Air 07/17/18 20:00 88 07/17/18 20:00 97.3 89 16 136/70 (92) 94 07/17/18 18:25 97.4 89 19 106/67 100 Room Air 07/17/18 17:50 97.4 89 19 106/67 100 Room Air 07/17/18 16:10 97.4 88 20 129/62 100 Room Air 07/17/18 15:55 97.3 87 19 105/58 100 Room Air Intake and Output 07/17/18 07/18/18 18:59 06:59 Intake Total 560 ml 575 ml Balance 560 ml 575 ml Intake Free Water 60 ml IV Total 560 ml 265 ml Blood Product 250 ml # Voids 1 2 Laboratory Tests Test 07/18/18 06:00 White Blood Count 10.1 K/UL (4.8-10.8) Red Blood Count 3.57 M/UL (4.70-6.10) L Hemoglobin 10.1 G/DL (14.2-18.0) L Hematocrit 31.3 % (42.0-52.0) L Mean Corpuscular Volume 88 FL (80-99) Mean Corpuscular Hemoglobin 28.3 PG (27.0-31.0) Mean Corpuscular Hemoglobin Concent 32.2 G/DL (32.0-36.0) Red Cell Distribution Width 16.2 % (11.6-14.8) H Platelet Count 263 K/UL (150-450) Mean Platelet Volume 6.8 FL (6.5-10.1) Neutrophils (%) (Auto) 73.5 % (45.0-75.0) Lymphocytes (%) (Auto) 17.4 % (20.0-45.0) L Monocytes (%) (Auto) 6.7 % (1.0-10.0) Eosinophils (%) (Auto) 1.9 % (0.0-3.0) Basophils (%) (Auto) 0.5 % (0.0-2.0) Prothrombin Time 11.6 SEC (9.30-11.50) H Prothromb Time International Ratio 1.1 (0.9-1.1) Activated Partial Thromboplast Time 32 SEC (23-33) Sodium Level 147 MMOL/L (136-145) H Potassium Level 3.9 MMOL/L (3.5-5.1) Chloride Level 114 MMOL/L (98-107) H Carbon Dioxide Level 24 MMOL/L (21-32) Anion Gap 9 mmol/L (5-15) Blood Urea Nitrogen 56 mg/dL (7-18) H Creatinine 2.1 MG/DL (0.55-1.30) H Estimat Glomerular Filtration Rate mL/min (>60) Glucose Level 89 MG/DL (74-106) Hemoglobin A1c 6.4 % (4.3-6.0) H Uric Acid 6.4 MG/DL (2.6-7.2) Calcium Level 8.5 MG/DL (8.5-10.1) Phosphorus Level 3.4 MG/DL (2.5-4.9) Magnesium Level 2.0 MG/DL (1.8-2.4) Iron Level 108 ug/dL (50-175) Total Iron Binding Capacity 213 ug/dL (250-450) L Percent Iron Saturation 51 % (15-50) H Unsaturated Iron Binding 105 ug/dL (112-346) L Ferritin 42 NG/ML (8-388) Total Bilirubin 0.3 MG/DL (0.2-1.0) Gamma Glutamyl Transpeptidase 9 U/L (5-85) Aspartate Amino Transf (AST/SGOT) 17 U/L (15-37) Alanine Aminotransferase (ALT/SGPT) 16 U/L (12-78) Alkaline Phosphatase 71 U/L (46-116) Total Creatine Kinase 33 U/L (26-308) C-Reactive Protein, Quantitative 3.3 mg/dL (0.00-0.90) H Pro-B-Type Natriuretic Peptide 1134 pg/mL (0-125) H Total Protein 6.5 G/DL (6.4-8.2) Albumin 2.2 G/DL (3.4-5.0) L Globulin 4.3 g/dL Albumin/Globulin Ratio 0.5 (1.0-2.7) L Triglycerides Level 77 MG/DL (30-150) Cholesterol Level 108 MG/DL (< 200) LDL Cholesterol 59 mg/dL (<100) HDL Cholesterol 38 MG/DL (40-60) L Cholesterol/HDL Ratio 2.8 (3.3-4.4) L Vitamin B12 Level 681 PG/ML (193-986) Folate 9.9 NG/ML (8.6-58.9) Thyroid Stimulating Hormone (TSH) 3.208 uiU/mL (0.358-3.740) Height (Feet): 5 Height (Inches): 10.00 Weight (Pounds): 180 Medications Current Medications Medications (Trade) Dose Ordered Sig/Jared Route PRN Reason Start Time Stop Time Status Last Admin Dose Admin Acetaminophen (Tylenol) 650 mg Q4H PRN ORAL T>100.5 07/17/18 21:00 08/16/18 20:59 Al Hydroxide/Mg Hydroxide (Mylanta II) 30 ml Q6H PRN ORAL dyspepsia 07/17/18 21:00 08/16/18 20:59 Dextrose (Dextrose 50%) 25 ml Q30M PRN IV Hypoglycemia 07/17/18 21:00 08/16/18 20:59 Dextrose (Dextrose 50%) 50 ml Q30M PRN IV Hypoglycemia 07/17/18 21:00 08/16/18 20:59 Dextrose/Sodium Chloride 1,000 ml @ 75 mls/hr [id number] IV 07/17/18 19:01 08/16/18 19:00 07/18/18 08:21 Diphenhydramine HCl (Benadryl) 25 mg Q6H PRN ORAL Itching/Pruritis 07/17/18 21:00 08/16/18 20:59 Insulin Aspart (NovoLOG) BEFORE MEALS AND HS SUBQ 07/18/18 06:30 08/17/18 06:29 Lorazepam (Ativan 2mg/ml 1ml) 0.5 mg Q4H PRN IV For Anxiety 07/17/18 21:00 07/24/18 20:59 Morphine Sulfate (Morphine Sulfate) 2 mg Q4H PRN IVP PAIN 4-10 07/17/18 21:00 07/24/18 20:59 Ondansetron HCl (Zofran) 4 mg Q6H PRN IVP Nausea & Vomiting 07/17/18 21:00 08/16/18 20:59 Pantoprazole (Protonix) 40 mg Q12HR IVP 07/17/18 22:00 08/16/18 21:59 07/18/18 09:37 Assessment/Plan Problem List: (1) GI bleed Assessment & Plan: 82 year old male with acute GI bleed. Initially with melena in ostomy bag which seems to have resolved. no n/v/f/c. labs noted. anemia. ostomy viable and with output. abd soft, nt/nd, bs+ NPO IV fluids PPI appreciate GI input trend labs no acute surgical intervention planned thank you ICD Codes: K92.2 - Gastrointestinal hemorrhage, unspecified SNOMED: [id number] Qualifiers: Qualified Codes: K92.1 - Melena (2) diverting colostomy Praveen Traylor July 18, 2018 15:37
[2018-07-18 16:00] VITALS: BP 148/90
--- NOTE | 2018-07-18 16:38 | Consultation ---
History of Present Illness General Chief Complaint: Gastrointestinal Bleed Reason for Consultation: gi bleed Present Illness Allergies: Coded Allergies: No Known Allergies (Verified , 12/29/06) Medication History Scheduled Diltiazem Hcl* (Cardizem*), 30 MG PO Q8HR, (Reported) Donepezil Hcl* (Aricept*), 5 MG ORAL DAILY, (Reported) Dorzolamide Hcl/Timolol Maleat (Cosopt Eye Drops), 10 ML OP BID, (Reported) Insulin Detemir (Levemir), 30 UNIT SUBQ 9 PM , (Reported) Insulin Detemir (Levemir Flexpen), 75 SUBQ DAILY, (Reported) Multivitamin (Multi Vitamin Daily), 1 TAB ORAL DAILY, (Reported) Potassium Chloride (Potassium Chloride), 20 MEQ ORAL DAILY, (Reported) Scheduled PRN Acetaminophen (Tylenol), 650 MG PO Q6HR PRN for Mild Pain/Temp > 100.5, ( Reported) Dextromethorphan Hb/Doxylamine (Robitussin Nighttime Cough Dm), 10 ML PO Q8HR PRN for For Cough, (Reported) Ipratropium [place] 0.5MG/2.5ML (Ipratropium [place] 0.5MG/2.5ML), 0.5 MG HHN Q6H PRN for Shortness of Breath, (Reported) Discontinued Medications Levofloxacin (Levofloxacin), 250 MG GT DAILY, (Reported) Discontinued Reason: Pt stopped taking med Patient History Healthcare decision maker Resuscitation status Full Code Advanced Directive on File Physical Exam Last 24 Hour Vital Signs Date Time Temp Pulse Resp B/P (MAP) Pulse Ox O2 Delivery O2 Flow Rate FiO2 07/18/18 12:00 97.0 90 22 150/78 (102) 92 07/18/18 11:52 90 07/18/18 09:13 Room Air 07/18/18 08:00 97.5 94 20 138/84 (102) 93 07/18/18 07:44 86 07/18/18 04:00 83 07/18/18 04:00 97.7 86 18 129/57 (81) 95 07/18/18 00:00 98.1 85 16 131/59 (83) 93 07/18/18 00:00 84 07/17/18 23:40 Room Air 5/25/19 20:00 88 07/17/18 20:00 97.3 89 16 136/70 (92) 94 07/17/18 18:25 97.4 89 19 106/67 100 Room Air 07/17/18 17:50 97.4 89 19 106/67 100 Room Air Intake and Output 07/17/18 07/18/18 18:59 06:59 Intake Total 560 ml 575 ml Balance 560 ml 575 ml Intake Free Water 60 ml IV Total 560 ml 265 ml Blood Product 250 ml # Voids 1 2 Laboratory Tests Test 07/18/18 06:00 White Blood Count 10.1 K/UL (4.8-10.8) Red Blood Count 3.57 M/UL (4.70-6.10) L Hemoglobin 10.1 G/DL (14.2-18.0) L Hematocrit 31.3 % (42.0-52.0) L Mean Corpuscular Volume 88 FL (80-99) Mean Corpuscular Hemoglobin 28.3 PG (27.0-31.0) Mean Corpuscular Hemoglobin Concent 32.2 G/DL (32.0-36.0) Red Cell Distribution Width 16.2 % (11.6-14.8) H Platelet Count 263 K/UL (150-450) Mean Platelet Volume 6.8 FL (6.5-10.1) Neutrophils (%) (Auto) 73.5 % (45.0-75.0) Lymphocytes (%) (Auto) 17.4 % (20.0-45.0) L Monocytes (%) (Auto) 6.7 % (1.0-10.0) Eosinophils (%) (Auto) 1.9 % (0.0-3.0) Basophils (%) (Auto) 0.5 % (0.0-2.0) Prothrombin Time 11.6 SEC (9.30-11.50) H Prothromb Time International Ratio 1.1 (0.9-1.1) Activated Partial Thromboplast Time 32 SEC (23-33) Sodium Level 147 MMOL/L (136-145) H Potassium Level 3.9 MMOL/L (3.5-5.1) Chloride Level 114 MMOL/L (98-107) H Carbon Dioxide Level 24 MMOL/L (21-32) Anion Gap 9 mmol/L (5-15) Blood Urea Nitrogen 56 mg/dL (7-18) H Creatinine 2.1 MG/DL (0.55-1.30) H Estimat Glomerular Filtration Rate mL/min (>60) Glucose Level 89 MG/DL (74-106) Hemoglobin A1c 6.4 % (4.3-6.0) H Uric Acid 6.4 MG/DL (2.6-7.2) Calcium Level 8.5 MG/DL (8.5-10.1) Phosphorus Level 3.4 MG/DL (2.5-4.9) Magnesium Level 2.0 MG/DL (1.8-2.4) Iron Level 108 ug/dL (50-175) Total Iron Binding Capacity 213 ug/dL (250-450) L Percent Iron Saturation 51 % (15-50) H Unsaturated Iron Binding 105 ug/dL (112-346) L Ferritin 42 NG/ML (8-388) Total Bilirubin 0.3 MG/DL (0.2-1.0) Gamma Glutamyl Transpeptidase 9 U/L (5-85) Aspartate Amino Transf (AST/SGOT) 17 U/L (15-37) Alanine Aminotransferase (ALT/SGPT) 16 U/L (12-78) Alkaline Phosphatase 71 U/L (46-116) Total Creatine Kinase 33 U/L (26-308) C-Reactive Protein, Quantitative 3.3 mg/dL (0.00-0.90) H Pro-B-Type Natriuretic Peptide 1134 pg/mL (0-125) H Total Protein 6.5 G/DL (6.4-8.2) Albumin 2.2 G/DL (3.4-5.0) L Globulin 4.3 g/dL Albumin/Globulin Ratio 0.5 (1.0-2.7) L Triglycerides Level 77 MG/DL (30-150) Cholesterol Level 108 MG/DL (< 200) LDL Cholesterol 59 mg/dL (<100) HDL Cholesterol 38 MG/DL (40-60) L Cholesterol/HDL Ratio 2.8 (3.3-4.4) L Vitamin B12 Level 681 PG/ML (193-986) Folate 9.9 NG/ML (8.6-58.9) Thyroid Stimulating Hormone (TSH) 3.208 uiU/mL (0.358-3.740) Height (Feet): 5 Height (Inches): 10.00 Weight (Pounds): 180 Medications Current Medications Medications (Trade) Dose Ordered Sig/Jared Route PRN Reason Start Time Stop Time Status Last Admin Dose Admin Acetaminophen (Tylenol) 650 mg Q4H PRN ORAL T>100.5 07/17/18 21:00 08/16/18 20:59 Al Hydroxide/Mg Hydroxide (Mylanta II) 30 ml Q6H PRN ORAL dyspepsia 07/17/18 21:00 08/16/18 20:59 Dextrose (Dextrose 50%) 25 ml Q30M PRN IV Hypoglycemia 07/17/18 21:00 08/16/18 20:59 Dextrose (Dextrose 50%) 50 ml Q30M PRN IV Hypoglycemia 07/17/18 21:00 08/16/18 20:59 Dextrose/Sodium Chloride 1,000 ml @ 75 mls/hr [id number] IV 07/17/18 19:01 08/16/18 19:00 07/18/18 08:21 Diphenhydramine HCl (Benadryl) 25 mg Q6H PRN ORAL Itching/Pruritis 07/17/18 21:00 08/16/18 20:59 Insulin Aspart (NovoLOG) BEFORE MEALS AND HS SUBQ 07/18/18 06:30 08/17/18 06:29 Iron Sucrose 100 mg/Sodium Chloride 60 ml @ 240 mls/hr BEDTIME IV 07/18/18 21:00 07/22/18 21:14 Lorazepam (Ativan 2mg/ml 1ml) 0.5 mg Q4H PRN IV For Anxiety 07/17/18 21:00 07/24/18 20:59 Morphine Sulfate (Morphine Sulfate) 2 mg Q4H PRN IVP PAIN 4-10 07/17/18 21:00 07/24/18 20:59 Ondansetron HCl (Zofran) 4 mg Q6H PRN IVP Nausea & Vomiting 07/17/18 21:00 08/16/18 20:59 Pantoprazole (Protonix) 40 mg Q12HR IVP 07/17/18 22:00 08/16/18 21:59 07/18/18 09:37 Assessment/Plan Assessment/Plan: Hematology Consultation Chief Complaint: Gastrointestinal Bleed DOS: 07/18/18 RFC: Anemia evaluation ID Patient is sent in for alleged black and tarry bowel movements. He denies vomiting at this time. He does have a cough. He denies chest pain or shortness of breath. He does feel dehydrated at this time. The patient is a poor historian. He is extremely hard of hearing. No further history is available. The patient has a colostomy. This is where the black stools appearing. He was admitted a year ago with these discharge diagnoses: Acute hypoxemic respiratory failure requiring BiPAP, resolved Hypertensive urgency, resolved Sepsis secondary to pneumonia Pneumonia Anemia Diabetes mellitus with the diabetic nephropathy Chronic renal insufficiency Bifascicular bundle branch block History of CVA GERD Dysphagia Status post PEG placement 07/03/2017 G-tube Encephalopathy Diverging colostomy Dementia with behavioral issues Allergies: No Known Allergies (Verified , 12/29/06) Limited by: medical condition Past Medical History: see triage record, old chart reviewed Past Surgical History: other - colostomy, G tube Social History: Denies: alcohol use Social History Narrative shelter facility Reviewed Nursing Documentation: PMH: Agreed; PSxH: Agreed Hx Cardiac Problems: Yes Hx Hypertension: Yes Hx Diabetes: Yes Hx Cancer: No Hx Gastrointestinal Problems: Yes - colostomy Hx Neurological Problems: Yes - dementia Hx Cerebrovascular Accident: Yes Hx Dementia: Yes Review of Systems: limited PE Vital Signs Date Time Temp Pulse Resp B/P (MAP) Pulse Ox O2 Delivery O2 Flow Rate FiO2 07/18/18 12:55 97.3 104 24 96/67 (77) 94 07/18/18 13:06 Room Air Vitals: reviewed, normal Gen: no apparent distress, alert, thin, Chronically Ill Head: normocephalic Eyes: bilateral eye conjunctivae pale ENT: dry mucus membranes Neck: supple Respiratory: rhonchi CV: regular rate, rhythm, no edema GI: soft, no mass, non-distended, other - g tube, cholostomy with black stool Gu: normal inspection Psychiatric: mood/affect normal Skin: normal inspection, warm/dry Laboratory Tests Test 07/17/18 13:50 07/17/18 13:52 White Blood Count 13.1 K/UL (4.8-10.8) H Red Blood Count 3.16 M/UL (4.70-6.10) L Hemoglobin 8.4 G/DL (14.2-18.0) L Hematocrit 27.2 % (42.0-52.0) L Mean Corpuscular Volume 86 FL (80-99) Mean Corpuscular Hemoglobin 26.6 PG (27.0-31.0) L Mean Corpuscular Hemoglobin Concent 30.9 G/DL (32.0-36.0) L Red Cell Distribution Width 17.7 % (11.6-14.8) H Platelet Count 369 K/UL (150-450) Mean Platelet Volume 7.4 FL (6.5-10.1) Neutrophils (%) (Auto) 73.0 % (45.0-75.0) Lymphocytes (%) (Auto) 19.1 % (20.0-45.0) L Monocytes (%) (Auto) 5.6 % (1.0-10.0) Eosinophils (%) (Auto) 1.4 % (0.0-3.0) Basophils (%) (Auto) 0.8 % (0.0-2.0) Prothrombin Time 10.8 SEC (9.30-11.50) Prothrombin Time INR 1.0 (0.9-1.1) PTT 30 SEC (23-33) Sodium Level 146 MMOL/L (136-145) H Potassium Level 3.8 MMOL/L (3.5-5.1) Chloride Level 109 MMOL/L (98-107) H Carbon Dioxide Level 27 MMOL/L (21-32) Anion Gap 10 mmol/L (5-15) Blood Urea Nitrogen 61 mg/dL (7-18) H Creatinine 2.2 MG/DL (0.55-1.30) H Estimate Glomerular Filtration Rate mL/min (>60) Glucose Level 107 MG/DL (74-106) H Lactic Acid Level 2.30 mmol/L (0.4-2.0) H Calcium Level 8.9 MG/DL (8.5-10.1) Total Bilirubin 0.1 MG/DL (0.2-1.0) L Aspartate Amino Transferase (AST) 17 U/L (15-37) Alanine Aminotransferase (ALT) 21 U/L (12-78) Alkaline Phosphatase 81 U/L (46-116) Total Creatine Kinase 34 U/L (26-308) Troponin I 0.000 ng/mL (0.000-0.056) Total Protein 7.1 G/DL (6.4-8.2) Albumin 2.5 G/DL (3.4-5.0) L Globulin 4.6 g/dL Albumin/Globulin Ratio 0.5 (1.0-2.7) L Lipase 72 U/L (73-393) L Urine Color Pale yellow Urine Appearance Clear Urine pH 5 (4.5-8.0) Urine Specific [place] 1.015 (1.005-1.035) Urine Protein 2+ (NEGATIVE) H Urine Glucose (UA) Negative (NEGATIVE) Urine Ketones Negative (NEGATIVE) Urine Blood Negative (NEGATIVE) Urine Nitrite Negative (NEGATIVE) Urine Bilirubin Negative (NEGATIVE) Urine Urobilinogen Normal MG/DL (0.0-1.0) Urine Leukocyte Esterase 1+ (NEGATIVE) H Urine RBC 0 /HPF (0 - 0) Urine WBC 0-2 /HPF (0 - 0) Urine Squamous Epithelial Cells Occasional /LPF Urine Bacteria Occasional /HPF (NONE) Assessment and Recs: # Anemia of iron deficiency due to gi bleed, in colostomy bag, to be seenby gi --> Anemia workup has been ordered, ferritin is low at 42 --> No evidence of hemolysis is noted, peripheral smear has been reviewed. --> Hgb goal >7. Transfuse prn. --> Iron x 5 days has been started --> Medications have been reviewed --> gi recs appreciated # Leukocytosis/elevated white blood cell count, unspecified likely related to underlying stress reaction versus underlying infection/pna/sepsis --> have reviewed peripheral smear and bandemia/neutrophilia noted --> continue antibiotics if they have been started by ID team --> monitor for resolution # R lateral nodule and possible chronic effusion. NSBGP, no obstruction. likely pna --> as er pulm eval # Elevated BUN and creatinine. Initial lactic acid elevated. --> nephro was consulted # Noncommunicative The timing of this note does not necessarily reflect the time of the patient was seen. Greatly appreciate consultation! Sohail Reese MD July 18, 2018 16:38
[2018-07-18] MEDS ORDERED: DUONEB 0.5-3(2.53 ML HHN (18:14)
[2018-07-18] MEDS ORDERED: DONEPEZIL HCL5 M2 GT (18:14)
[2018-07-18] MEDS ORDERED: MULTI-DELYN237 ML GT (18:14)
[2018-07-18] MEDS ORDERED: NOVOLOG100 UNITS1 SQ (18:14)
[2018-07-18] MEDS ORDERED: ROBITUSSIN COU237 M2 GT (18:14)
[2018-07-18] MEDS ORDERED: POTASSIUM20 MEQ/15 GT (18:14)
--- NOTE | 2018-07-18 19:12 | NUR ---
HAND-OFF: Report given to Darcy Neff.
--- NOTE | 2018-07-18 19:18 | NUR ---
NURSE NOTES: Received report from ALDO Carmichael. Patient is awake lying semi-reyez's watching TV; resting comfortably. No signs of acute distress noted; denies pain at this time. AOx1-2; able to make needs known to a degree. Able to follow commands. Checked IV sites, lines, and IV rate; patent and running. No erythema, bleeding, or infiltration noted. Condom catheter draining well to gravity. Patient on P200 mattress for appropriate wound management. Bed at lowest position, brakes on, siderails up x3. Call light within reach. Will continue to monitor.
[2018-07-18 20:00] VITALS: BP 133/93
[2018-07-18] MEDS: Iron Sucrose 100 MG in NS 55 ML IV SCH (21:12)
[2018-07-19] VITALS (11 sets, daily range): BP systolic 82–156; BP diastolic 43–98
--- NOTE | 2018-07-19 04:30 | History and Physical Report ---
DATE OF ADMISSION: 07/17/2018 HISTORY: The patient comes with melanotic stool according to the intermediate staff. The patient has a history of megacolon and status post , also admitted for azotemia and hemoglobin of 8.2 and the patient is also diabetic. The patient is a poor historian and has aphasia from previous stroke. The patient does also complain of cough and black and tarry stools. Denies shortness of breath. Denies nausea, vomiting, or diarrhea. Denies orthopnea. The patient also has hearing deficit. Could not get further history. PAST MEDICAL HISTORY: GERD, dementia, aphasia, multiple strokes, dysphagia, bifascicular bundle-branch block, chronic renal insufficiency, [id number] diabetes mellitus, anemia, hypertension, and history of electrolyte imbalance. PAST SURGICAL HISTORY: Colostomy, history of megacolon repair, history of laparotomy, history of PEG. MEDICATIONS: Diltiazem, benazepril, insulin Detemir, multivitamin, and potassium. ALLERGIES: No known allergies. SOCIAL HISTORY: Denies history of alcohol or illicit drugs. Comes from a intermediate. FAMILY HISTORY: Noncontributory. REVIEW OF SYSTEMS: Unable to obtain. However, denies pain in lower extremities. Denies shortness of breath. Denies cough. Denies fever or chills. Does have some mild abdominal pain. PHYSICAL EXAMINATION: VITAL SIGNS: Temperature 97.5, pulse is 94, and blood pressure 138/84. HEENT: PERRLA. NECK: Supple. No evidence of lymphadenopathy. CHEST: Clear to auscultation. CARDIOVASCULAR: Regular rate and rhythm. ABDOMEN: Distended. Colostomy and NG tube intact. Positive bowel sounds. Not in acute distress. EXTREMITY: A 1+ edema. Reflexes in both sides. The patient has an expressive aphasia, which is chronic. LABORATORY DATA: WBC of 13.1, hemoglobin 8.4, and platelets of 369,000. Sodium 147, potassium 3.9, BUN of 56, creatinine 2.1, and glucose of 89. ASSESSMENT AND PLAN: 1. Renal failure. 2. Melanotic stools. 3. Anemia. 4. History of megacolon. PLAN: I have asked Dr. Traylor, Dr. Hoyos, Dr. Ochoa, and Dr. Sohail Reese to see the patient to help with the management of the above-mentioned diagnoses as well as treatment. Rene Sin M.D. DR: REBEKAH JOB#: [id number] CC:
[2018-07-19] MEDS: NovoLOG Insulin Flexpen SUBQ SCH ×4 (05:38→20:50)
--- NOTE | 2018-07-19 07:30 | NUR ---
NURSE NOTES: Received report from Darcy/RN, Patient awake and alert x2, No acute distress/SOB noted at this time. Bed in low position and locked. Call light within reach. Will continue plan of care.
--- NOTE | 2018-07-19 07:37 | NUR ---
HAND-OFF: Report given to ALDO Zaragoza. Patient is awake lying semi-reyez's; resting comfortably. In stable condition.
[2018-07-19 08:04] LABS: BASOPHILS % (AUTO) 0.7 % (0.0-2.0); EOSINOPHILS % (AUTO) 4.1 % (0.0-3.0); HEMATOCRIT 34.7 % (42.0-52.0); HEMOGLOBIN 11.1 G/DL (14.2-18.0); LYMPHOCYTES % (AUTO) 12.7 % (20.0-45.0); MEAN CORPUSCULAR VOLUME 89 FL (80-99); MONOCYTES % (AUTO) 6.7 % (1.0-10.0); NEUTROPHILS % (AUTO) 75.8 % (45.0-75.0); PLATELET COUNT 251 K/UL (150-450); RED BLOOD COUNT 3.89 M/UL (4.70-6.10); RED CELL DISTRIBUTION WIDTH 16.3 % (11.6-14.8); WHITE BLOOD COUNT 9.1 K/UL (4.8-10.8)
[2018-07-19] MEDS ORDERED: Midazolam 2mg/2ml Inj ONE (08:56)
[2018-07-19] MEDS ORDERED: Lidocaine 1% MPF 10mg/ml 5ml ONE (09:00)
[2018-07-19] MEDS ORDERED: LR 1000ml ONE (09:00)
[2018-07-19] MEDS ORDERED: Propofol 200mg/20ml IV ONE (09:00)
--- NOTE | 2018-07-19 09:23 | Anethesia Preoperative Eval ---
Anesthesia Pre-op PMH/ROS General Date of Evaluation: July 19, 2018 Time of Evaluation: 09:01 Anesthesiologist: Natty ASA Score: ASA 4 - Emergency Mallampati Score Class I : Soft palate, uvula, fauces, pillars visible Class II: Soft palate, uvula, fauces visible Class III: Soft palate, base of uvula visible Class IV: Only hard plate visible Mallampati Classification: Class II Surgeon: Rosio Diagnosis: GI Bleed Surgical Procedure: EGD, G tube Placement Anesthesia History: none Family History: no anesthesia problems Allergies: Coded Allergies: No Known Allergies (Verified , 12/29/06) Medications: see eMAR Patient NPO?: Yes Past Medical History Cardiovascular: Reports: HTN, CAD, other - HL, CHF Gastrointestinal/Genitourinary: Reports: GERD, CRI, other - Gastric Ulcer Neurologic/Psychiatric: Reports: dementia, CVA, other - Schizophrenia Endocrine: Reports: DM Hematology/Immune: Reports: anemia PSxH Narrative: Colostomy Anesthesia Pre-op Phys. Exam Physician Exam Last Vital Signs Date Time Temp Pulse Resp B/P (MAP) Pulse Ox O2 Delivery O2 Flow Rate FiO2 07/19/18 08:00 98.1 80 20 146/76 (99) 94 07/18/18 21:00 Room Air Constitutional: NAD Neurologic: CN 2-12 intact Cardiovascular: RRR Respiratory: CTA Gastrointestinal: S/NT/ND Airway Exam Mallampati Score: Class II MO: limited ROM: limited Teeth: missing Anesthesia Pre-op A/P Labs Hematology Test 07/19/18 06:35 White Blood Count 9.1 K/UL (4.8-10.8) Red Blood Count 3.89 M/UL (4.70-6.10) L Hemoglobin 11.1 G/DL (14.2-18.0) L Hematocrit 34.7 % (42.0-52.0) L Mean Corpuscular Volume 89 FL (80-99) Mean Corpuscular Hemoglobin 28.4 PG (27.0-31.0) Mean Corpuscular Hemoglobin Concent 31.9 G/DL (32.0-36.0) L Red Cell Distribution Width 16.3 % (11.6-14.8) H Platelet Count 251 K/UL (150-450) Mean Platelet Volume 7.6 FL (6.5-10.1) Neutrophils (%) (Auto) 75.8 % (45.0-75.0) H Lymphocytes (%) (Auto) 12.7 % (20.0-45.0) L Monocytes (%) (Auto) 6.7 % (1.0-10.0) Eosinophils (%) (Auto) 4.1 % (0.0-3.0) H Basophils (%) (Auto) 0.7 % (0.0-2.0) Risk Assessment & Plan Assessment: ASA 4E Plan: GA Status Change Before Surgery: No Carlos Luz MD July 19, 2018 09:23
[2018-07-19] MEDS: Pantoprazole Inj IVP SCH ×2 (09:26→20:43)
[2018-07-19] MEDS ORDERED: NS 500ML IVPB ONE (09:30)
--- NOTE | 2018-07-19 09:32 | Pre-Procedure Note/Attestation ---
Pre-Procedure Note/Attestation Complete Prior to Procedure Planned Procedure: not applicable Procedure Narrative: egd Indications for Procedure Pre-Operative Diagnosis: gib Attestation I attest that I discussed the nature of the procedure; its benefits; risks and complications; and alternatives (and the risks and benefits of such alternatives ), prior to the procedure, with the patient (or the patient's legal sales donor recruitment representative). I attest that, if there was a reasonable possibility of needing a blood transfusion, the patient (or the patient's legal sales donor recruitment representative) was given the [facility] standardized written summary, pursuant to the Bala Bhavani Blood Safety Act ([place] Health and Safety Code # 1645, as amended). I attest that I re-evaluated the patient just prior to the surgery and that there has been no change in the patient's H&P, except as documented below: Keyanna Avelar MD July 19, 2018 09:32
--- NOTE | 2018-07-19 09:32 | General Progress Note ---
Assessment/Plan Assessment/Plan: Assessment - Reported GIB,but no melena in ostomy since admit - anemia - Dysphagia, GT dependent - lactic acidosis, resolved Recommendations - keep NPO - IVF - PPI - follow labs - EGD today Subjective Allergies: Coded Allergies: No Known Allergies (Verified , 12/29/06) Subjective patient awake non communicative NPO for EGD today Objective Last 24 Hour Vital Signs Date Time Temp Pulse Resp B/P (MAP) Pulse Ox O2 Delivery O2 Flow Rate FiO2 07/19/18 08:00 98.1 80 20 146/76 (99) 94 07/19/18 04:00 77 07/19/18 04:00 98.0 80 18 131/69 (89) 91 07/19/18 00:00 82 07/19/18 00:00 97.8 88 18 135/87 (103) 94 07/18/18 21:00 Room Air 07/18/18 20:00 97.6 93 16 133/93 (106) 93 07/18/18 20:00 88 07/18/18 16:00 97.2 88 21 148/90 (109) 92 07/18/18 15:52 85 07/18/18 12:00 97.0 90 22 150/78 (102) 92 07/18/18 11:52 90 Intake and Output 07/18/18 07/19/18 19:00 07:00 Intake Total 375 ml 1041 ml Output Total 800 ml Balance 375 ml 241 ml Intake Free Water 300 ml 100 ml IV Total 75 ml 941 ml Output Urine Total 800 ml # Voids 4 Laboratory Tests 07/19/18 06:35: White Blood Count 9.1, Red Blood Count 3.89L, Hemoglobin 11.1L, Hematocrit 34.7L , Mean Corpuscular Volume 89, Mean Corpuscular Hemoglobin 28.4, Mean Corpuscular Hemoglobin Concent 31.9L, Red Cell Distribution Width 16.3H, Platelet Count 251, Mean Platelet Volume 7.6, Neutrophils (%) (Auto) 75.8H, Lymphocytes (%) (Auto) 12.7L, Monocytes (%) (Auto) 6.7, Eosinophils (%) (Auto) 4.1H, Basophils (%) (Auto) 0.7 Height (Feet): 5 Height (Inches): 10.00 Weight (Pounds): 180 Objective Elderly WM NCAT supple CTA RR abd soft, GT in good position, ostomy empty no edema Keyanna Avelar MD July 19, 2018 09:32
--- NOTE | 2018-07-19 10:09 | Immediate Post-Op Evaluation ---
Immediate Post-Op Evalulation Immediate Post-Op Evalulation Procedure: EGD, G tube Placement Date of Evaluation: July 19, 2018 Time of Evaluation: 10:32 IV Fluids: 200 NS Blood Products: 0 Estimated Blood Loss: 10 Urinary Output: 0 Blood Pressure Systolic: 89 Blood Pressure Diastolic: 47 Pulse Rate: 62 Respiratory Rate: 18 O2 Sat by Pulse Oximetry: 100 Temperature (Fahrenheit): 97.6 Pain Score (1-10): 0 Nausea: No Vomiting: No Complications 0 Patient Status: awake, reacts, patent, none Hydration Status: adequate Carlos Luz MD July 19, 2018 10:09
--- NOTE | 2018-07-19 10:10 | 48 Hour Post Anesthesia Eval ---
Post Anesthesia Evaluation Procedure: EGD, G tube Placement Date of Evaluation: July 19, 2018 Time of Evaluation: 12:32 Blood Pressure Systolic: 157 0: 81 Pulse Rate: 78 Respiratory Rate: 18 Temperature (Fahrenheit): 97.6 O2 Sat by Pulse Oximetry: 96 Airway: patent Nausea: No Vomiting: No Pain Intensity: 0 Hydration Status: adequate Cardiopulmonary Status: Stable Mental Status/LOC: patient returned to baseline Follow-up Care/Observations: 0 Post-Anesthesia Complications: 0 Follow-up care needed: N/A Carlos Luz MD July 19, 2018 10:10
--- NOTE | 2018-07-19 11:26 | Endoscopy Procedure Note ---
Endoscopy Procedure Note General Indication for Procedure: GIB Procedures Performed: EGD Operative Findings/Diagnosis: GT FB, removed, Ulcer, bicap Specimen: none Pt Tolerated Procedure Well: Yes Estimated Blood Loss: none Anesthesia Anesthesiologist: Natty Anesthesia: MAC Medications Medication Given: see anesthesia record Inserted Devices Implant(s) used?: No GI Core Measures 50 yrs or older w/o bx or poly: Not Applicable 10yrs. F/U recommended: Not Applicable If not recommended, why?: Keyanna Avelar MD July 19, 2018 11:26
--- NOTE | 2018-07-19 11:27 | Brief Operative Note ---
Immediate Post Operative Note Operative Note Chief Complaint: GIB Pre-op Diagnosis: gib Procedure: EGD, FB removal , Bicap Post-op Diagnosis: , GT FB Surgeon: brando Anesthesiologist: Natty Anesthesia: MAC Specimen: none Complications: none Condition: stable Fluids: recorded Estimated Blood Loss: none Drains: none Implant(s) used?: No Keyanna Avelar MD July 19, 2018 11:27
[2018-07-19] MEDS: D5 1/2NS 1,000 ML IV SCH (11:46)
--- NOTE | 2018-07-19 12:10 | Nephrology Progress Note ---
Assessment/Plan Problem List: (1) Renal failure (2) Anemia (3) HTN (hypertension) (4) Right lower lobe consolidation Assessment Renal failure- Appears pre renal ? underlying Renal Anemia DM Dementia Pneumonia Plan no labs today Hydrate Anemia k[facility] GI eval antibiotics per orders Subjective ROS Limited/Unobtainable: No Constitutional: Reports: malaise Objective Objective Last 24 Hour Vital Signs Date Time Temp Pulse Resp B/P (MAP) Pulse Ox O2 Delivery O2 Flow Rate FiO2 07/19/18 10:30 64 16 119/61 97 Room Air 07/19/18 10:25 61 16 116/60 100 Simple Mask 2 07/19/18 10:10 63 16 92/52 100 Simple Mask 4 07/19/18 10:10 78 18 96 07/19/18 10:08 62 18 100 07/19/18 10:05 58 16 85/44 100 Simple Mask 8 07/19/18 10:00 97.0 60 16 82/43 100 Simple Mask 8 07/19/18 08:00 98.1 80 20 146/76 (99) 94 07/19/18 04:00 77 07/19/18 04:00 98.0 80 18 131/69 (89) 91 07/19/18 00:00 82 07/19/18 00:00 97.8 88 18 135/87 (103) 94 07/18/18 21:00 Room Air 07/18/18 20:00 97.6 93 16 133/93 (106) 93 07/18/18 20:00 88 07/18/18 16:00 97.2 88 21 148/90 (109) 92 07/18/18 15:52 85 Intake and Output 07/18/18 07/19/18 18:59 06:59 Intake Total 375 ml 1041 ml Output Total 800 ml Balance 375 ml 241 ml Intake Free Water 300 ml 100 ml IV Total 75 ml 941 ml Output Urine Total 800 ml # Voids 4 Current Medications Medications (Trade) Dose Ordered Sig/Jared Route PRN Reason Start Time Stop Time Status Last Admin Dose Admin Acetaminophen (Tylenol) 650 mg Q4H PRN ORAL T>100.5 07/17/18 21:00 08/16/18 20:59 Al Hydroxide/Mg Hydroxide (Mylanta II) 30 ml Q6H PRN ORAL dyspepsia 07/17/18 21:00 08/16/18 20:59 Dextrose (Dextrose 50%) 25 ml Q30M PRN IV Hypoglycemia 07/17/18 21:00 08/16/18 20:59 Dextrose (Dextrose 50%) 50 ml Q30M PRN IV Hypoglycemia 07/17/18 21:00 08/16/18 20:59 Dextrose/Sodium Chloride 1,000 ml @ 75 mls/hr [id number] IV 07/17/18 19:01 08/16/18 19:00 07/19/18 11:46 Diphenhydramine HCl (Benadryl) 25 mg Q6H PRN ORAL Itching/Pruritis 07/17/18 21:00 08/16/18 20:59 Insulin Aspart (NovoLOG) BEFORE MEALS AND HS SUBQ 07/18/18 06:30 08/17/18 06:29 07/19/18 11:50 Iron Sucrose 100 mg/Sodium Chloride 60 ml @ 240 mls/hr BEDTIME IV 07/18/18 21:00 07/22/18 21:14 07/18/18 21:12 Lorazepam (Ativan 2mg/ml 1ml) 0.5 mg Q4H PRN IV For Anxiety 07/17/18 21:00 07/24/18 20:59 Morphine Sulfate (Morphine Sulfate) 2 mg Q4H PRN IVP PAIN 4-10 07/17/18 21:00 07/24/18 20:59 Ondansetron HCl (Zofran) 4 mg Q6H PRN IVP Nausea & Vomiting 07/17/18 21:00 08/16/18 20:59 Pantoprazole (Protonix) 40 mg Q12HR IVP 07/17/18 22:00 08/16/18 21:59 07/19/18 09:26 Laboratory Tests 07/19/18 06:35: White Blood Count 9.1, Red Blood Count 3.89L, Hemoglobin 11.1L, Hematocrit 34.7L , Mean Corpuscular Volume 89, Mean Corpuscular Hemoglobin 28.4, Mean Corpuscular Hemoglobin Concent 31.9L, Red Cell Distribution Width 16.3H, Platelet Count 251, Mean Platelet Volume 7.6, Neutrophils (%) (Auto) 75.8H, Lymphocytes (%) (Auto) 12.7L, Monocytes (%) (Auto) 6.7, Eosinophils (%) (Auto) 4.1H, Basophils (%) (Auto) 0.7 Height (Feet): 5 Height (Inches): 10.00 Weight (Pounds): 180 General Appearance: no apparent distress Cardiovascular: normal rate, bradycardia Respiratory/Chest: decreased breath sounds Abdomen: distended Gregorio Hoyos MD July 19, 2018 12:10
--- NOTE | 2018-07-19 12:29 | Hematology/Onc Progress Note ---
Assessment/Plan Assessment/Plan Assessment and Recs: # Anemia of iron deficiency due to gi bleed, in colostomy bag, to be seenby gi --> Anemia workup has been ordered, ferritin is low at 42 --> No evidence of hemolysis is noted, peripheral smear has been reviewed. --> Hgb goal >7. Transfuse prn. --> Iron x 5 days has been started --> Medications have been reviewed --> gi recs appreciated, egd for 07/19 # Leukocytosis/elevated white blood cell count, unspecified likely related to underlying stress reaction versus underlying infection/pna/sepsis --> have reviewed peripheral smear and bandemia/neutrophilia noted --> continue antibiotics if they have been started by ID team --> monitor for resolution # R lateral nodule and possible chronic effusion. NSBGP, no obstruction. likely pna --> as er pulm eval # Elevated BUN and creatinine. Initial lactic acid elevated. --> nephro was consulted # Noncommunicative The timing of this note does not necessarily reflect the time of the patient was seen. Greatly appreciate consultation! Subjective Constitutional: Denies: no symptoms, chills, fever, malaise, weakness, other Cardiovascular: Denies: no symptoms, chest pain, edema, irregular heart rate, lightheadedness, palpitations, syncope, other Respiratory: Denies: no symptoms, cough, shortness of breath, SOB with excertion, SOB at rest, sputum, wheezing, other Gastrointestinal/Abdominal: Denies: no symptoms, abdomen distended, abdominal pain, black stools, tarry stools, blood in stool, constipated, diarrhea, difficulty swallowing, nausea, poor appetite, poor fluid intake, rectal bleeding , vomiting, other Genitourinary: Denies: no symptoms, burning, discharge, frequency, flank pain, hematuria, incontinence, pain, urgency, other Endocrine: Denies: no symptoms, excessive sweating, flushing, intolerance to cold, intolerance to heat, increased hunger, increased thirst, increased urine, unexplained weight gain, unexplained weight loss, other Hematologic/Lymphatic: Denies: no symptoms, anemia, easy bleeding, easy bruising, adenopathy, other Allergies: Coded Allergies: No Known Allergies (Verified , 12/29/06) Subjective 07/19: no events, to get egd today, no fevers, no chills, ulcer was noted Objective Objective Current Medications Medications (Trade) Dose Ordered Sig/Jared Route PRN Reason Start Time Stop Time Status Last Admin Dose Admin Acetaminophen (Tylenol) 650 mg Q4H PRN ORAL T>100.5 07/17/18 21:00 08/16/18 20:59 Dextrose (Dextrose 50%) 25 ml Q30M PRN IV Hypoglycemia 07/17/18 21:00 08/16/18 20:59 Dextrose (Dextrose 50%) 50 ml Q30M PRN IV Hypoglycemia 07/17/18 21:00 08/16/18 20:59 Dextrose/Sodium Chloride 1,000 ml @ 75 mls/hr [id number] IV 07/17/18 19:01 08/16/18 19:00 07/19/18 11:46 Diphenhydramine HCl (Benadryl) 25 mg Q6H PRN ORAL Itching/Pruritis 07/17/18 21:00 08/16/18 20:59 Insulin Aspart (NovoLOG) BEFORE MEALS AND HS SUBQ 07/18/18 06:30 08/17/18 06:29 07/19/18 11:50 Iron Sucrose 100 mg/Sodium Chloride 60 ml @ 240 mls/hr BEDTIME IV 07/18/18 21:00 07/22/18 21:14 07/18/18 21:12 Lorazepam (Ativan 2mg/ml 1ml) 0.5 mg Q4H PRN IV For Anxiety 07/17/18 21:00 07/24/18 20:59 Morphine Sulfate (Morphine Sulfate) 2 mg Q4H PRN IVP PAIN 4-10 07/17/18 21:00 07/24/18 20:59 Ondansetron HCl (Zofran) 4 mg Q6H PRN IVP Nausea & Vomiting 07/17/18 21:00 08/16/18 20:59 Pantoprazole (Protonix) 40 mg Q12HR IVP 07/17/18 22:00 08/16/18 21:59 07/19/18 09:26 Last 24 Hour Vital Signs Date Time Temp Pulse Resp B/P (MAP) Pulse Ox O2 Delivery O2 Flow Rate FiO2 07/19/18 10:30 64 16 119/61 97 Room Air 07/19/18 10:25 61 16 116/60 100 Simple Mask 2 07/19/18 10:10 63 16 92/52 100 Simple Mask 4 07/19/18 10:10 78 18 96 07/19/18 10:08 62 18 100 07/19/18 10:05 58 16 85/44 100 Simple Mask 8 07/19/18 10:00 97.0 60 16 82/43 100 Simple Mask 8 07/19/18 08:00 98.1 80 20 146/76 (99) 94 07/19/18 04:00 77 07/19/18 04:00 98.0 80 18 131/69 (89) 91 07/19/18 00:00 82 07/19/18 00:00 97.8 88 18 135/87 (103) 94 07/18/18 21:00 Room Air 07/18/18 20:00 97.6 93 16 133/93 (106) 93 07/18/18 20:00 88 07/18/18 16:00 97.2 88 21 148/90 (109) 92 07/18/18 15:52 85 07/18/18 12:00 97.0 90 22 150/78 (102) 92 07/18/18 11:52 90 07/18/18 09:13 Room Air 07/18/18 08:00 97.5 94 20 138/84 (102) 93 07/18/18 07:44 86 07/18/18 04:00 83 07/18/18 04:00 97.7 86 18 129/57 (81) 95 07/18/18 00:00 98.1 85 16 131/59 (83) 93 07/18/18 00:00 84 07/17/18 23:40 Room Air 07/17/18 20:00 88 07/17/18 20:00 97.3 89 16 136/70 (92) 94 07/17/18 18:25 97.4 89 19 106/67 100 Room Air 07/17/18 17:50 97.4 89 19 106/67 100 Room Air 07/17/18 16:10 97.4 88 20 129/62 100 Room Air 07/17/18 15:55 97.3 87 19 105/58 100 Room Air 07/17/18 15:21 97.3 91 20 103/43 100 Room Air 07/17/18 13:06 97.3 104 24 107/60 100 Room Air 07/17/18 13:06 104 24 Room Air 07/17/18 12:55 97.3 104 24 96/67 (77) 94 Intake and Output 07/18/18 07/19/18 19:00 07:00 Intake Total 375 ml 1041 ml Output Total 800 ml Balance 375 ml 241 ml Intake Free Water 300 ml 100 ml IV Total 75 ml 941 ml Output Urine Total 800 ml # Voids 4 Labs Test 07/17/18 13:50 07/17/18 13:52 07/17/18 15:30 07/18/18 06:00 White Blood Count 13.1 K/UL (4.8-10.8) 10.1 K/UL (4.8-10.8) Red Blood Count 3.16 M/UL (4.70-6.10) 3.57 M/UL (4.70-6.10) Hemoglobin 8.4 G/DL (14.2-18.0) 10.1 G/DL (14.2-18.0) Hematocrit 27.2 % (42.0-52.0) 31.3 % (42.0-52.0) Mean Corpuscular Volume 86 FL (80-99) 88 FL (80-99) Mean Corpuscular Hemoglobin 26.6 PG (27.0-31.0) 28.3 PG (27.0-31.0) Mean Corpuscular Hemoglobin Concent 30.9 G/DL (32.0-36.0) 32.2 G/DL (32.0-36.0) Red Cell Distribution Width 17.7 % (11.6-14.8) 16.2 % (11.6-14.8) Platelet Count 369 K/UL (150-450) 263 K/UL (150-450) Mean Platelet Volume 7.4 FL (6.5-10.1) 6.8 FL (6.5-10.1) Neutrophils (%) (Auto) 73.0 % (45.0-75.0) 73.5 % (45.0-75.0) Lymphocytes (%) (Auto) 19.1 % (20.0-45.0) 17.4 % (20.0-45.0) Monocytes (%) (Auto) 5.6 % (1.0-10.0) 6.7 % (1.0-10.0) Eosinophils (%) (Auto) 1.4 % (0.0-3.0) 1.9 % (0.0-3.0) Basophils (%) (Auto) 0.8 % (0.0-2.0) 0.5 % (0.0-2.0) Prothrombin Time 10.8 SEC (9.30-11.50) 11.6 SEC (9.30-11.50) Prothromb Time International Ratio 1.0 (0.9-1.1) 1.1 (0.9-1.1) Activated Partial Thromboplast Time 30 SEC (23-33) 32 SEC (23-33) Sodium Level 146 MMOL/L (136-145) 147 MMOL/L (136-145) Potassium Level 3.8 MMOL/L (3.5-5.1) 3.9 MMOL/L (3.5-5.1) Chloride Level 109 MMOL/L (98-107) 114 MMOL/L (98-107) Carbon Dioxide Level 27 MMOL/L (21-32) 24 MMOL/L (21-32) Anion Gap 10 mmol/L (5-15) 9 mmol/L (5-15) Blood Urea Nitrogen 61 mg/dL (7-18) 56 mg/dL (7-18) Creatinine 2.2 MG/DL (0.55-1.30) 2.1 MG/DL (0.55-1.30) Estimat Glomerular Filtration Rate mL/min (>60) mL/min (>60) Glucose Level 107 MG/DL (74-106) 89 MG/DL (74-106) Lactic Acid Level 2.30 mmol/L (0.4-2.0) 1.60 mmol/L (0.66-2.22) Calcium Level 8.9 MG/DL (8.5-10.1) 8.5 MG/DL (8.5-10.1) Total Bilirubin 0.1 MG/DL (0.2-1.0) 0.3 MG/DL (0.2-1.0) Aspartate Amino Transf (AST/SGOT) 17 U/L (15-37) 17 U/L (15-37) Alanine Aminotransferase (ALT/SGPT) 21 U/L (12-78) 16 U/L (12-78) Alkaline Phosphatase 81 U/L (46-116) 71 U/L (46-116) Total Creatine Kinase 34 U/L (26-308) 33 U/L (26-308) Troponin I 0.000 ng/mL (0.000-0.056) Total Protein 7.1 G/DL (6.4-8.2) 6.5 G/DL (6.4-8.2) Albumin 2.5 G/DL (3.4-5.0) 2.2 G/DL (3.4-5.0) Globulin 4.6 g/dL 4.3 g/dL Albumin/Globulin Ratio 0.5 (1.0-2.7) 0.5 (1.0-2.7) Lipase 72 U/L (73-393) Urine Color Pale yellow Urine Appearance Clear Urine pH 5 (4.5-8.0) Urine Specific [place] 1.015 (1.005-1.035) Urine Protein 2+ (NEGATIVE) Urine Glucose (UA) Negative (NEGATIVE) Urine Ketones Negative (NEGATIVE) Urine Blood Negative (NEGATIVE) Urine Nitrite Negative (NEGATIVE) Urine Bilirubin Negative (NEGATIVE) Urine Urobilinogen Normal MG/DL (0.0-1.0) Urine Leukocyte Esterase 1+ (NEGATIVE) Urine RBC 0 /HPF (0 - 0) Urine WBC 0-2 /HPF (0 - 0) Urine Squamous Epithelial Cells Occasional /LPF Urine Bacteria Occasional /HPF (NONE) Hemoglobin A1c 6.4 % (4.3-6.0) Uric Acid 6.4 MG/DL (2.6-7.2) Phosphorus Level 3.4 MG/DL (2.5-4.9) Magnesium Level 2.0 MG/DL (1.8-2.4) Iron Level 108 ug/dL (50-175) Total Iron Binding Capacity 213 ug/dL (250-450) Percent Iron Saturation 51 % (15-50) Unsaturated Iron Binding 105 ug/dL (112-346) Ferritin 42 NG/ML (8-388) Gamma Glutamyl Transpeptidase 9 U/L (5-85) C-Reactive Protein, Quantitative 3.3 mg/dL (0.00-0.90) Pro-B-Type Natriuretic Peptide 1134 pg/mL (0-125) Triglycerides Level 77 MG/DL (30-150) Cholesterol Level 108 MG/DL (< 200) LDL Cholesterol 59 mg/dL (<100) HDL Cholesterol 38 MG/DL (40-60) Cholesterol/HDL Ratio 2.8 (3.3-4.4) Vitamin B12 Level 681 PG/ML (193-986) Folate 9.9 NG/ML (8.6-58.9) Thyroid Stimulating Hormone (TSH) 3.208 uiU/mL (0.358-3.740) Test 07/19/18 06:35 White Blood Count 9.1 K/UL (4.8-10.8) Red Blood Count 3.89 M/UL (4.70-6.10) Hemoglobin 11.1 G/DL (14.2-18.0) Hematocrit 34.7 % (42.0-52.0) Mean Corpuscular Volume 89 FL (80-99) Mean Corpuscular Hemoglobin 28.4 PG (27.0-31.0) Mean Corpuscular Hemoglobin Concent 31.9 G/DL (32.0-36.0) Red Cell Distribution Width 16.3 % (11.6-14.8) Platelet Count 251 K/UL (150-450) Mean Platelet Volume 7.6 FL (6.5-10.1) Neutrophils (%) (Auto) 75.8 % (45.0-75.0) Lymphocytes (%) (Auto) 12.7 % (20.0-45.0) Monocytes (%) (Auto) 6.7 % (1.0-10.0) Eosinophils (%) (Auto) 4.1 % (0.0-3.0) Basophils (%) (Auto) 0.7 % (0.0-2.0) Height (Feet): 5 Height (Inches): 10.00 Weight (Pounds): 180 Lymphatic: normal posterior cervical (R) Objective Vitals: reviewed, normal Gen: no apparent distress, alert, thin, Chronically Ill Head: normocephalic Eyes: bilateral eye conjunctivae pale ENT: dry mucus membranes Neck: supple Respiratory: rhonchi CV: regular rate, rhythm, no edema GI: soft, no mass, non-distended, other - g tube, cholostomy with black stool Gu: normal inspection Psychiatric: mood/affect normal Skin: normal inspection, warm/dry Sohail Reese MD July 19, 2018 12:29
--- NOTE | 2018-07-19 14:52 | Cardiology Report ---
APPROVED REPORT EKG Measurement Heart [id number] 192P [id number] Sinus rhythm with occasional premature ventricular complexes Right bundle branch block Left anterior fascicular block Bifascicular block Abnormal ECG
--- NOTE | 2018-07-19 19:20 | NUR ---
HAND-OFF: Report given to Liu/RN, Patient in stable condition. Endorsed plan of care.
--- NOTE | 2018-07-19 19:25 | NUR ---
NURSE NOTES: Pt received from ALDO Zaragoza alert and oriented x1 to name only. IV site asymptomatic and patent on R fa 20g running to D51/2 NS at 75. Gtube feed tolerating - 5ml gastric residual currently running at 35 ml/hr. Advanced to 45 ml/hr will continue to monitor for increased gastric residual. Aspiration precautions implemented - HOB elevated, suction at bedside. Left abdominal stoma pink. Bed in lowest position, bed alarm on, call light and belongings within reach.
--- NOTE | 2018-07-19 19:29 | Surgery Progress Note ---
Surgery Progress Note Subjective Additional Comments no blood noted in ostomy bag since admission. EGD today with ulcer and GI FB which was removed. exam unchanged. Objective Last 24 Hour Vital Signs Date Time Temp Pulse Resp B/P (MAP) Pulse Ox O2 Delivery O2 Flow Rate FiO2 07/19/18 16:00 85 07/19/18 16:00 97.7 72 20 140/98 (112) 94 07/19/18 12:00 60 07/19/18 12:00 97.4 69 20 151/78 (102) 95 07/19/18 10:30 64 16 119/61 97 Room Air 07/19/18 10:25 61 16 116/60 100 Simple Mask 2 07/19/18 10:10 63 16 92/52 100 Simple Mask 4 07/19/18 10:10 78 18 96 07/19/18 10:08 62 18 100 07/19/18 10:05 58 16 85/44 100 Simple Mask 8 07/19/18 10:00 97.0 60 16 82/43 100 Simple Mask 8 07/19/18 09:00 Room Air 07/19/18 08:00 98.1 80 20 146/76 (99) 94 07/19/18 08:00 76 07/19/18 04:00 77 07/19/18 04:00 98.0 80 18 131/69 (89) 91 07/19/18 00:00 82 07/19/18 00:00 97.8 88 18 135/87 (103) 94 07/18/18 21:00 Room Air 07/18/18 20:00 97.6 93 16 133/93 (106) 93 07/18/18 20:00 88 I&O Intake and Output 07/18/18 07/19/18 18:59 06:59 Intake Total 375 ml 1041 ml Output Total 800 ml Balance 375 ml 241 ml Intake Free Water 300 ml 100 ml IV Total 75 ml 941 ml Output Urine Total 800 ml # Voids 4 Dressing: saturated Wound: other Drains: other Cardiovascular: RSR Respiratory: clear Abdomen: soft, distended, non-tender, other - ostomy viable Extremities: no tenderness, no cyanosis Laboratory Tests Test 07/19/18 06:35 White Blood Count 9.1 K/UL (4.8-10.8) Red Blood Count 3.89 M/UL (4.70-6.10) L Hemoglobin 11.1 G/DL (14.2-18.0) L Hematocrit 34.7 % (42.0-52.0) L Mean Corpuscular Volume 89 FL (80-99) Mean Corpuscular Hemoglobin 28.4 PG (27.0-31.0) Mean Corpuscular Hemoglobin Concent 31.9 G/DL (32.0-36.0) L Red Cell Distribution Width 16.3 % (11.6-14.8) H Platelet Count 251 K/UL (150-450) Mean Platelet Volume 7.6 FL (6.5-10.1) Neutrophils (%) (Auto) 75.8 % (45.0-75.0) H Lymphocytes (%) (Auto) 12.7 % (20.0-45.0) L Monocytes (%) (Auto) 6.7 % (1.0-10.0) Eosinophils (%) (Auto) 4.1 % (0.0-3.0) H Basophils (%) (Auto) 0.7 % (0.0-2.0) Plan Problems: (1) GI bleed Assessment & Plan: 82 year old male with acute GI bleed. Initially with melena in ostomy bag which seems to have resolved. no n/v/f/c. labs noted. anemia. ostomy viable and with output. abd soft, nt/nd, bs+ s/p EGD with FB removal and Ulcer NPO IV fluids PPI trend labs no acute surgical intervention planned thank you (2) diverting colostomy Praveen Traylor July 19, 2018 19:29
--- NOTE | 2018-07-19 19:45 | Operative Note - Dictated ---
DATE OF OPERATION: 07/19/2018 GASTROENTEROLOGY PROCEDURE REPORT PROCEDURE: Upper gastrointestinal endoscopy with foreign body removal, BICAP cautery, hemostasis. SURGEON: Kyeanna Avelar M.D. ANESTHESIA: Please see the separate anesthesiologist notes for details. PREOPERATIVE DIAGNOSIS: Gastrointestinal bleeding. POSTOPERATIVE DIAGNOSIS: Gastrostomy tube. COMPLICATIONS: 1. Status post gastrostomy tube exchange and foreign body removal. 2. A 1.5 cm gastric ulcer with a visible vessel at its base, status post BICAP cautery. DESCRIPTION OF PROCEDURE: The procedure, its risks, indications, alternatives, and possible complications were explained to the patient's daughter and informed consent was obtained. The patient was then sedated in the supine position. A diagnostic upper endoscope was introduced through the oropharynx and advanced to the duodenum. The endoscope was then gradually withdrawn. The mucosa examined carefully. Examination of the upper gastrointestinal mucosa revealed a gastrostomy tube replacement catheter, which apparently had been passed through the funnel tip of the previous gastrostomy tube, which was somewhat of an unusual finding. Across from this gastrostomy tube, a 1.5 cm ulcer was seen with a central visible vessel. There was no active bleeding. The gastrostomy tube was removed under direct vision, at which point, the funnel tip became loose. This funnel tip was grabbed with a snare and brought out through the mouth. Thereafter, a Gold probe was used to cauterize the vessel at the base of the ulcer. There were no complications. The patient was left to recovery in good condition. COMPLICATIONS: None. RECOMMENDATIONS: 1. Resume tube feeding. 2. Check and treat Helicobacter pylori if positive. 3. Repeat colonoscopy in one to two months to document healing of ulcer. Keyanna Avelar M.D. DR: DAKOTAH JOB#: [id number] CC: [id number]
--- NOTE | 2018-07-19 20:40 | General Progress Note ---
Assessment/Plan Problem List: (1) HTN (hypertension) ICD Codes: I10 - HTN (hypertension) SNOMED: 30309044 (2) Anemia ICD Codes: D64.9 - Anemia SNOMED: 772730167 (3) GI bleed ICD Codes: K92.2 - Gastrointestinal hemorrhage, unspecified SNOMED: 84851787 Qualifiers: Qualified Codes: K92.1 - Melena (4) DM (diabetes mellitus) ICD Codes: E11.9 - DM (diabetes mellitus) SNOMED: 30191250 Status: progressing Assessment/Plan: s/p endoscopy found bleeding pud and dr michaels cauthorized the bleeding vessel needs to be on ppi niddm htn colostomy s/p exchange of peg Subjective ROS Limited/Unobtainable: Yes Allergies: Coded Allergies: No Known Allergies (Verified , 12/29/06) Objective Last 24 Hour Vital Signs Date Time Temp Pulse Resp B/P (MAP) Pulse Ox O2 Delivery O2 Flow Rate FiO2 07/19/18 16:00 85 07/19/18 16:00 97.7 72 20 140/98 (112) 94 07/19/18 12:00 60 07/19/18 12:00 97.4 69 20 151/78 (102) 95 07/19/18 10:30 64 16 119/61 97 Room Air 07/19/18 10:25 61 16 116/60 100 Simple Mask 2 07/19/18 10:10 63 16 92/52 100 Simple Mask 4 07/19/18 10:10 78 18 96 07/19/18 10:08 62 18 100 07/19/18 10:05 58 16 85/44 100 Simple Mask 8 07/19/18 10:00 97.0 60 16 82/43 100 Simple Mask 8 07/19/18 09:00 Room Air 07/19/18 08:00 98.1 80 20 146/76 (99) 94 07/19/18 08:00 76 07/19/18 04:00 77 07/19/18 04:00 98.0 80 18 131/69 (89) 91 07/19/18 00:00 82 07/19/18 00:00 97.8 88 18 135/87 (103) 94 07/18/18 21:00 Room Air Intake and Output 07/18/18 07/19/18 18:59 06:59 Intake Total 375 ml 1041 ml Output Total 800 ml Balance 375 ml 241 ml Intake Free Water 300 ml 100 ml IV Total 75 ml 941 ml Output Urine Total 800 ml # Voids 4 Laboratory Tests 07/19/18 06:35: White Blood Count 9.1, Red Blood Count 3.89L, Hemoglobin 11.1L, Hematocrit 34.7L , Mean Corpuscular Volume 89, Mean Corpuscular Hemoglobin 28.4, Mean Corpuscular Hemoglobin Concent 31.9L, Red Cell Distribution Width 16.3H, Platelet Count 251, Mean Platelet Volume 7.6, Neutrophils (%) (Auto) 75.8H, Lymphocytes (%) (Auto) 12.7L, Monocytes (%) (Auto) 6.7, Eosinophils (%) (Auto) 4.1H, Basophils (%) (Auto) 0.7 Height (Feet): 5 Height (Inches): 10.00 Weight (Pounds): 180 Respiratory/Chest: lungs clear Abdomen: soft Rene Sin MD July 19, 2018 20:40
[2018-07-19] MEDS: Iron Sucrose 100 MG in NS 55 ML IV SCH (20:43)
[2018-07-20] VITALS (7 sets, daily range): BP systolic 117–189; BP diastolic 62–110
[2018-07-20] MEDS: D5 1/2NS 1,000 ML IV SCH ×2 (00:26→14:58)
--- NOTE | 2018-07-20 03:18 | NUR ---
NURSE NOTES: Pt currently resting in bed, asleep with no acute s/s of distress noted. Linens changed and bed bath provided. Changed colostomy bag - moderate amount of soft black, tarry stool noted
[2018-07-20] MEDS: NovoLOG Insulin Flexpen SUBQ SCH ×4 (05:26→21:53)
--- NOTE | 2018-07-20 06:20 | NUR ---
HAND-OFF: Report given to ALDO Cabral. No acute s/s of distress.
--- NOTE | 2018-07-20 07:16 | NUR ---
HAND-OFF: Report given to ALDO Atkins.
--- NOTE | 2018-07-20 07:19 | NUR ---
NURSE NOTES: Received report from ALDO Cabral. Patient resting in bed, non verbal. Respiration even and non labored on room air. No SOB noted. IV patent and intact, running at RX dose. Side rails up x2. Safety precaution observed. Colostomy bag intact.Bed in lowest position, alarm on and break engaged. Bed side table and bed alarm within reach. Will continue plan of care.
[2018-07-20 08:04] LABS: BASOPHILS % (AUTO) 0.6 % (0.0-2.0); EOSINOPHILS % (AUTO) 4.1 % (0.0-3.0); HEMATOCRIT 35.3 % (42.0-52.0); HEMOGLOBIN 11.4 G/DL (14.2-18.0); LYMPHOCYTES % (AUTO) 11.4 % (20.0-45.0); MEAN CORPUSCULAR VOLUME 88 FL (80-99); MONOCYTES % (AUTO) 6.4 % (1.0-10.0); NEUTROPHILS % (AUTO) 77.4 % (45.0-75.0); PLATELET COUNT 256 K/UL (150-450); RED CELL DISTRIBUTION WIDTH 16.5 % (11.6-14.8); WHITE BLOOD COUNT 11.1 K/UL (4.8-10.8)
[2018-07-20] MEDS: Pantoprazole Inj IVP SCH ×2 (08:27→21:51)
[2018-07-20 08:56] LABS: ALANINE AMINOTRANSFERASE 28 U/L (12-78); ALBUMIN 2.3 G/DL (3.4-5.0); ALBUMIN/GLOBULIN RATIO 0.5 (1.0-2.7); ALKALINE PHOSPHATASE 113 U/L (46-116); ANION GAP 10 mmol/L (5-15); ASPARTATE AMINO TRANSFERASE 20 U/L (15-37); BILIRUBIN,TOTAL 0.2 MG/DL (0.2-1.0); BLOOD UREA NITROGEN 34 mg/dL (7-18); CALCIUM 8.9 MG/DL (8.5-10.1); CARBON DIOXIDE 23 MMOL/L (21-32); CHLORIDE 111 MMOL/L (98-107); PHOSPHORUS 1.9 MG/DL (2.5-4.9); POTASSIUM 3.9 MMOL/L (3.5-5.1); SODIUM 144 MMOL/L (136-145)
[2018-07-20] MEDS ORDERED: Potassium Phosphate 20 MM in NS 275 ML IV ONE (10:30)
--- NOTE | 2018-07-20 10:37 | NUR ---
NURSE NOTES: Patient pulled out his IV and also he pulled out hos colostomy bag. Per Dr. Sin's order we put the patient on Bilateral soft wrist restraint.
--- NOTE | 2018-07-20 11:03 | GI Progress Note ---
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 Ochoa. Assessment/Plan s/p EGD summary of findings >> ulcer, GT placement follow up biopsies and treat accordingly monitor H&H, prn transfusions ppi + carafate GTFs per RD electrolyte correction venofer follow labs The patient was seen and examined at bedside and all new and available data was reviewed in the patients chart. I agree with the above findings, impression and plan. (Patient seen earlier today. Signature stamp does not reflect patient encounter time.). - Abner Ochoa MD Subjective Subjective limited Objective Last 24 Hour Vital Signs Date Time Temp Pulse Resp B/P (MAP) Pulse Ox O2 Delivery O2 Flow Rate FiO2 07/20/18 04:00 82 07/20/18 04:00 97.4 92 19 150/75 (100) 94 07/20/18 00:00 97.9 86 18 117/70 (86) 95 07/20/18 00:00 78 07/19/18 21:00 Room Air 07/19/18 20:00 97.5 82 18 156/78 (104) 95 07/19/18 20:00 78 07/19/18 16:00 85 07/19/18 16:00 97.7 72 20 140/98 (112) 94 07/19/18 12:00 60 07/19/18 12:00 97.4 69 20 151/78 (102) 95 Intake and Output 07/19/18 07/20/18 19:00 07:00 Intake Total 445 ml 1395 ml Output Total 210 ml Balance 235 ml 1395 ml Intake Free Water 100 ml 100 ml IV Total 300 ml 765 ml Tube Feeding 45 ml 530 ml Output Urine Total 200 ml Estimated Blood Loss 10 ml # Voids 2 4 Laboratory Tests Test 07/20/18 06:50 White Blood Count 11.1 K/UL (4.8-10.8) H Red Blood Count 4.00 M/UL (4.70-6.10) L Hemoglobin 11.4 G/DL (14.2-18.0) L Hematocrit 35.3 % (42.0-52.0) L Mean Corpuscular Volume 88 FL (80-99) Mean Corpuscular Hemoglobin 28.6 PG (27.0-31.0) Mean Corpuscular Hemoglobin Concent 32.3 G/DL (32.0-36.0) Red Cell Distribution Width 16.5 % (11.6-14.8) H Platelet Count 256 K/UL (150-450) Mean Platelet Volume 7.0 FL (6.5-10.1) Neutrophils (%) (Auto) 77.4 % (45.0-75.0) H Lymphocytes (%) (Auto) 11.4 % (20.0-45.0) L Monocytes (%) (Auto) 6.4 % (1.0-10.0) Eosinophils (%) (Auto) 4.1 % (0.0-3.0) H Basophils (%) (Auto) 0.6 % (0.0-2.0) Sodium Level 144 MMOL/L (136-145) Potassium Level 3.9 MMOL/L (3.5-5.1) Chloride Level 111 MMOL/L (98-107) H Carbon Dioxide Level 23 MMOL/L (21-32) Anion Gap 10 mmol/L (5-15) Blood Urea Nitrogen 34 mg/dL (7-18) H Creatinine 2.0 MG/DL (0.55-1.30) H Estimat Glomerular Filtration Rate mL/min (>60) Glucose Level 166 MG/DL (74-106) H Lactic Acid Level 1.90 mmol/L (0.4-2.0) Uric Acid 5.5 MG/DL (2.6-7.2) Calcium Level 8.9 MG/DL (8.5-10.1) Phosphorus Level 1.9 MG/DL (2.5-4.9) L Magnesium Level 1.9 MG/DL (1.8-2.4) Total Bilirubin 0.2 MG/DL (0.2-1.0) Aspartate Amino Transf (AST/SGOT) 20 U/L (15-37) Alanine Aminotransferase (ALT/SGPT) 28 U/L (12-78) Alkaline Phosphatase 113 U/L (46-116) C-Reactive Protein, Quantitative 6.1 mg/dL (0.00-0.90) H Pro-B-Type Natriuretic Peptide 27535 pg/mL (0-125) H Total Protein 6.8 G/DL (6.4-8.2) Albumin 2.3 G/DL (3.4-5.0) L Globulin 4.5 g/dL Albumin/Globulin Ratio 0.5 (1.0-2.7) L Height (Feet): 5 Height (Inches): 10.00 Weight (Pounds): 180 General Appearance: no apparent distress Cardiovascular: normal rate Respiratory/Chest: normal breath sounds, no respiratory distress Abdominal Exam: normal bowel sounds, non tender, soft Extremities: non-tender Meredith Avilez NP July 20, 2018 11:03
--- NOTE | 2018-07-20 12:16 | NUR ---
NURSE NOTES: Called Dr. Hoyos office and asked for BP medication.
[2018-07-20] MEDS: Sucralfate 1gm tab GT SCH ×3 (12:29→21:50)
--- NOTE | 2018-07-20 12:45 | Hematology/Onc Progress Note ---
Assessment/Plan Assessment/Plan Assessment and Recs: # Anemia of iron deficiency due to gi bleed, in colostomy bag, to be seenby gi --> Anemia workup has been ordered, ferritin is low at 42 --> No evidence of hemolysis is noted, peripheral smear has been reviewed. --> Hgb goal >7. Transfuse prn. --> Iron x 5 days has been started --> Medications have been reviewed --> gi recs appreciated, egd for 07/19 showed ulceration # Leukocytosis/elevated white blood cell count, unspecified likely related to underlying stress reaction versus underlying infection/pna/sepsis --> have reviewed peripheral smear and bandemia/neutrophilia noted --> continue antibiotics if they have been started by ID team --> monitor for resolution # R lateral nodule and possible chronic effusion. NSBGP, no obstruction. likely pna --> as er pulm eval # Elevated BUN and creatinine. Initial lactic acid elevated. --> nephro was consulted # Noncommunicative # Dysphagia s/p gtube # Colsotomy bag The timing of this note does not necessarily reflect the time of the patient was seen. Greatly appreciate consultation! Subjective Constitutional: Denies: no symptoms, chills, fever, malaise, weakness, other HEENT: Denies: no symptoms, eye pain, blurred vision, tearing, double vision, ear pain, ear discharge, nose pain, nose congestion, throat pain, throat swelling, mouth pain, mouth swelling, other Cardiovascular: Denies: no symptoms, chest pain, edema, irregular heart rate, lightheadedness, palpitations, syncope, other Respiratory: Denies: no symptoms, cough, shortness of breath, SOB with excertion, SOB at rest, sputum, wheezing, other Gastrointestinal/Abdominal: Denies: no symptoms, abdomen distended, abdominal pain, black stools, tarry stools, blood in stool, constipated, diarrhea, difficulty swallowing, nausea, poor appetite, poor fluid intake, rectal bleeding , vomiting, other Genitourinary: Denies: no symptoms, burning, discharge, frequency, flank pain, hematuria, incontinence, pain, urgency, other Neurologic/Psychiatric: Denies: no symptoms, anxiety, depressed, emotional problems, headache, numbness, paresthesia, pre-existing deficit, seizure, tingling, tremors, weakness, other Endocrine: Denies: no symptoms, excessive sweating, flushing, intolerance to cold, intolerance to heat, increased hunger, increased thirst, increased urine, unexplained weight gain, unexplained weight loss, other Allergies: Coded Allergies: No Known Allergies (Verified , 12/29/06) Subjective 07/19: no events, to get egd today, no fevers, no chills, ulcer was noted 07/20: ulcer was noted on egd, gi seen, on iv iron Objective Objective Current Medications Medications (Trade) Dose Ordered Sig/Jared Route PRN Reason Start Time Stop Time Status Last Admin Dose Admin Acetaminophen (Tylenol) 650 mg Q4H PRN ORAL T>100.5 07/17/18 21:00 08/16/18 20:59 Clonidine HCl (Catapres Tab) 0.1 mg ONCE ORAL 07/20/18 12:30 07/20/18 13:30 07/20/18 12:31 Dextrose (Dextrose 50%) 25 ml Q30M PRN IV Hypoglycemia 07/17/18 21:00 08/16/18 20:59 Dextrose (Dextrose 50%) 50 ml Q30M PRN IV Hypoglycemia 07/17/18 21:00 08/16/18 20:59 Dextrose/Sodium Chloride 1,000 ml @ 75 mls/hr [id number] IV 07/17/18 19:01 08/16/18 19:00 07/20/18 00:26 Diphenhydramine HCl (Benadryl) 25 mg Q6H PRN ORAL Itching/Pruritis 07/17/18 21:00 08/16/18 20:59 Insulin Aspart (NovoLOG) BEFORE MEALS AND HS SUBQ 07/18/18 06:30 08/17/18 06:29 07/20/18 12:25 Iron Sucrose 100 mg/Sodium Chloride 60 ml @ 240 mls/hr BEDTIME IV 07/18/18 21:00 07/22/18 21:14 07/19/18 20:43 Lorazepam (Ativan 2mg/ml 1ml) 0.5 mg Q4H PRN IV For Anxiety 07/17/18 21:00 07/24/18 20:59 Morphine Sulfate (Morphine Sulfate) 2 mg Q4H PRN IVP PAIN 4-10 07/17/18 21:00 6/1/19 20:59 Ondansetron HCl (Zofran) 4 mg Q6H PRN IVP Nausea & Vomiting 07/17/18 21:00 08/16/18 20:59 Pantoprazole (Protonix) 40 mg Q12HR IVP 07/17/18 22:00 08/16/18 21:59 07/20/18 08:27 Potassium Phosphate 20 mm/ Sodium Chloride 281.6667 ml @ 46.944 m... ONCE ONCE IV 07/20/18 10:30 07/20/18 16:29 07/20/18 11:07 Sucralfate (Carafate) 1 gm FOUR TIMES A DAY GT 07/20/18 13:00 08/19/18 12:59 07/20/18 12:29 Last 24 Hour Vital Signs Date Time Temp Pulse Resp B/P (MAP) Pulse Ox O2 Delivery O2 Flow Rate FiO2 07/20/18 12:31 189/79 07/20/18 12:00 97.7 88 20 189/79 (115) 94 07/20/18 08:00 97.2 88 20 157/64 (95) 94 07/20/18 04:00 82 07/20/18 04:00 97.4 92 19 150/75 (100) 94 07/20/18 00:00 97.9 86 18 117/70 (86) 95 07/20/18 00:00 78 07/19/18 21:00 Room Air 07/19/18 20:00 97.5 82 18 156/78 (104) 95 07/19/18 20:00 78 07/19/18 16:00 85 07/19/18 16:00 97.7 72 20 140/98 (112) 94 07/19/18 12:00 60 07/19/18 12:00 97.4 69 20 151/78 (102) 95 07/19/18 10:30 64 16 119/61 97 Room Air 07/19/18 10:25 61 16 116/60 100 Simple Mask 2 07/19/18 10:10 63 16 92/52 100 Simple Mask 4 07/19/18 10:10 78 18 96 07/19/18 10:08 62 18 100 07/19/18 10:05 58 16 85/44 100 Simple Mask 8 07/19/18 10:00 97.0 60 16 82/43 100 Simple Mask 8 07/19/18 09:00 Room Air 07/19/18 08:00 98.1 80 20 146/76 (99) 94 07/19/18 08:00 76 07/19/18 04:00 77 07/19/18 04:00 98.0 80 18 131/69 (89) 91 07/19/18 00:00 82 07/19/18 00:00 97.8 88 18 135/87 (103) 94 07/18/18 21:00 Room Air 07/18/18 20:00 97.6 93 16 133/93 (106) 93 07/18/18 20:00 88 07/18/18 16:00 97.2 88 21 148/90 (109) 92 07/18/18 15:52 85 Intake and Output 07/19/18 07/20/18 19:00 07:00 Intake Total 445 ml 1395 ml Output Total 210 ml Balance 235 ml 1395 ml Intake Free Water 100 ml 100 ml IV Total 300 ml 765 ml Tube Feeding 45 ml 530 ml Output Urine Total 200 ml Estimated Blood Loss 10 ml # Voids 2 4 Labs Test 07/17/18 13:50 07/17/18 13:52 07/17/18 15:30 07/18/18 06:00 White Blood Count 13.1 K/UL (4.8-10.8) 10.1 K/UL (4.8-10.8) Red Blood Count 3.16 M/UL (4.70-6.10) 3.57 M/UL (4.70-6.10) Hemoglobin 8.4 G/DL (14.2-18.0) 10.1 G/DL (14.2-18.0) Hematocrit 27.2 % (42.0-52.0) 31.3 % (42.0-52.0) Mean Corpuscular Volume 86 FL (80-99) 88 FL (80-99) Mean Corpuscular Hemoglobin 26.6 PG (27.0-31.0) 28.3 PG (27.0-31.0) Mean Corpuscular Hemoglobin Concent 30.9 G/DL (32.0-36.0) 32.2 G/DL (32.0-36.0) Red Cell Distribution Width 17.7 % (11.6-14.8) 16.2 % (11.6-14.8) Platelet Count 369 K/UL (150-450) 263 K/UL (150-450) Mean Platelet Volume 7.4 FL (6.5-10.1) 6.8 FL (6.5-10.1) Neutrophils (%) (Auto) 73.0 % (45.0-75.0) 73.5 % (45.0-75.0) Lymphocytes (%) (Auto) 19.1 % (20.0-45.0) 17.4 % (20.0-45.0) Monocytes (%) (Auto) 5.6 % (1.0-10.0) 6.7 % (1.0-10.0) Eosinophils (%) (Auto) 1.4 % (0.0-3.0) 1.9 % (0.0-3.0) Basophils (%) (Auto) 0.8 % (0.0-2.0) 0.5 % (0.0-2.0) Prothrombin Time 10.8 SEC (9.30-11.50) 11.6 SEC (9.30-11.50) Prothromb Time International Ratio 1.0 (0.9-1.1) 1.1 (0.9-1.1) Activated Partial Thromboplast Time 30 SEC (23-33) 32 SEC (23-33) Sodium Level 146 MMOL/L (136-145) 147 MMOL/L (136-145) Potassium Level 3.8 MMOL/L (3.5-5.1) 3.9 MMOL/L (3.5-5.1) Chloride Level 109 MMOL/L (98-107) 114 MMOL/L (98-107) Carbon Dioxide Level 27 MMOL/L (21-32) 24 MMOL/L (21-32) Anion Gap 10 mmol/L (5-15) 9 mmol/L (5-15) Blood Urea Nitrogen 61 mg/dL (7-18) 56 mg/dL (7-18) Creatinine 2.2 MG/DL (0.55-1.30) 2.1 MG/DL (0.55-1.30) Estimat Glomerular Filtration Rate mL/min (>60) mL/min (>60) Glucose Level 107 MG/DL (74-106) 89 MG/DL (74-106) Lactic Acid Level 2.30 mmol/L (0.4-2.0) 1.60 mmol/L (0.66-2.22) Calcium Level 8.9 MG/DL (8.5-10.1) 8.5 MG/DL (8.5-10.1) Total Bilirubin 0.1 MG/DL (0.2-1.0) 0.3 MG/DL (0.2-1.0) Aspartate Amino Transf (AST/SGOT) 17 U/L (15-37) 17 U/L (15-37) Alanine Aminotransferase (ALT/SGPT) 21 U/L (12-78) 16 U/L (12-78) Alkaline Phosphatase 81 U/L (46-116) 71 U/L (46-116) Total Creatine Kinase 34 U/L (26-308) 33 U/L (26-308) Troponin I 0.000 ng/mL (0.000-0.056) Total Protein 7.1 G/DL (6.4-8.2) 6.5 G/DL (6.4-8.2) Albumin 2.5 G/DL (3.4-5.0) 2.2 G/DL (3.4-5.0) Globulin 4.6 g/dL 4.3 g/dL Albumin/Globulin Ratio 0.5 (1.0-2.7) 0.5 (1.0-2.7) Lipase 72 U/L (73-393) Urine Color Pale yellow Urine Appearance Clear Urine pH 5 (4.5-8.0) Urine Specific [place] 1.015 (1.005-1.035) Urine Protein 2+ (NEGATIVE) Urine Glucose (UA) Negative (NEGATIVE) Urine Ketones Negative (NEGATIVE) Urine Blood Negative (NEGATIVE) Urine Nitrite Negative (NEGATIVE) Urine Bilirubin Negative (NEGATIVE) Urine Urobilinogen Normal MG/DL (0.0-1.0) Urine Leukocyte Esterase 1+ (NEGATIVE) Urine RBC 0 /HPF (0 - 0) Urine WBC 0-2 /HPF (0 - 0) Urine Squamous Epithelial Cells Occasional /LPF Urine Bacteria Occasional /HPF (NONE) Hemoglobin A1c 6.4 % (4.3-6.0) Uric Acid 6.4 MG/DL (2.6-7.2) Phosphorus Level 3.4 MG/DL (2.5-4.9) Magnesium Level 2.0 MG/DL (1.8-2.4) Iron Level 108 ug/dL (50-175) Total Iron Binding Capacity 213 ug/dL (250-450) Percent Iron Saturation 51 % (15-50) Unsaturated Iron Binding 105 ug/dL (112-346) Ferritin 42 NG/ML (8-388) Gamma Glutamyl Transpeptidase 9 U/L (5-85) C-Reactive Protein, Quantitative 3.3 mg/dL (0.00-0.90) Pro-B-Type Natriuretic Peptide 1134 pg/mL (0-125) Triglycerides Level 77 MG/DL (30-150) Cholesterol Level 108 MG/DL (< 200) LDL Cholesterol 59 mg/dL (<100) HDL Cholesterol 38 MG/DL (40-60) Cholesterol/HDL Ratio 2.8 (3.3-4.4) Vitamin B12 Level 681 PG/ML (193-986) Folate 9.9 NG/ML (8.6-58.9) Thyroid Stimulating Hormone (TSH) 3.208 uiU/mL (0.358-3.740) Test 07/19/18 06:35 07/20/18 06:50 White Blood Count 9.1 K/UL (4.8-10.8) 11.1 K/UL (4.8-10.8) Red Blood Count 3.89 M/UL (4.70-6.10) 4.00 M/UL (4.70-6.10) Hemoglobin 11.1 G/DL (14.2-18.0) 11.4 G/DL (14.2-18.0) Hematocrit 34.7 % (42.0-52.0) 35.3 % (42.0-52.0) Mean Corpuscular Volume 89 FL (80-99) 88 FL (80-99) Mean Corpuscular Hemoglobin 28.4 PG (27.0-31.0) 28.6 PG (27.0-31.0) Mean Corpuscular Hemoglobin Concent 31.9 G/DL (32.0-36.0) 32.3 G/DL (32.0-36.0) Red Cell Distribution Width 16.3 % (11.6-14.8) 16.5 % (11.6-14.8) Platelet Count 251 K/UL (150-450) 256 K/UL (150-450) Mean Platelet Volume 7.6 FL (6.5-10.1) 7.0 FL (6.5-10.1) Neutrophils (%) (Auto) 75.8 % (45.0-75.0) 77.4 % (45.0-75.0) Lymphocytes (%) (Auto) 12.7 % (20.0-45.0) 11.4 % (20.0-45.0) Monocytes (%) (Auto) 6.7 % (1.0-10.0) 6.4 % (1.0-10.0) Eosinophils (%) (Auto) 4.1 % (0.0-3.0) 4.1 % (0.0-3.0) Basophils (%) (Auto) 0.7 % (0.0-2.0) 0.6 % (0.0-2.0) Sodium Level 144 MMOL/L (136-145) Potassium Level 3.9 MMOL/L (3.5-5.1) Chloride Level 111 MMOL/L (98-107) Carbon Dioxide Level 23 MMOL/L (21-32) Anion Gap 10 mmol/L (5-15) Blood Urea Nitrogen 34 mg/dL (7-18) Creatinine 2.0 MG/DL (0.55-1.30) Estimat Glomerular Filtration Rate mL/min (>60) Glucose Level 166 MG/DL (74-106) Lactic Acid Level 1.90 mmol/L (0.4-2.0) Uric Acid 5.5 MG/DL (2.6-7.2) Calcium Level 8.9 MG/DL (8.5-10.1) Phosphorus Level 1.9 MG/DL (2.5-4.9) Magnesium Level 1.9 MG/DL (1.8-2.4) Total Bilirubin 0.2 MG/DL (0.2-1.0) Aspartate Amino Transf (AST/SGOT) 20 U/L (15-37) Alanine Aminotransferase (ALT/SGPT) 28 U/L (12-78) Alkaline Phosphatase 113 U/L (46-116) C-Reactive Protein, Quantitative 6.1 mg/dL (0.00-0.90) Pro-B-Type Natriuretic Peptide 63338 pg/mL (0-125) Total Protein 6.8 G/DL (6.4-8.2) Albumin 2.3 G/DL (3.4-5.0) Globulin 4.5 g/dL Albumin/Globulin Ratio 0.5 (1.0-2.7) Height (Feet): 5 Height (Inches): 10.00 Weight (Pounds): 180 Objective Vitals: reviewed, normal Gen: no apparent distress, alert, thin, Chronically Ill Head: normocephalic Eyes: bilateral eye conjunctivae pale ENT: dry mucus membranes Neck: supple Respiratory: rhonchi CV: regular rate, rhythm, no edema GI: soft, no mass, non-distended, other - g tube, colostomy with black stool Gu: normal inspection Psychiatric: mood/affect normal Skin: normal inspection, warm/dry Sohail Reese MD July 20, 2018 12:45
--- NOTE | 2018-07-20 13:13 | Diagnostic Imaging Report ---
EXAM: XR Abdomen, 2 Views CLINICAL HISTORY: ABD PAIN TECHNIQUE: Frontal view of the abdomen/pelvis with upright view of the abdomen. COMPARISON: Abdominal radiographs on 02/22/2009 FINDINGS: Hardware: G-tube projected over the left upper quadrant. Abdomen: Nonspecific but nonobstructive bowel gas pattern. No free air. Large amount of stool in the rectum may represent fecal impaction. Moderate to large amount of stool in the colon. Bones: Degenerative changes of the spine. Mild degenerative changes of the hips. Soft tissues: Presumed phleboliths in the pelvis. Vascular calcifications. Lower chest: Atelectasis versus scarring at the right lung base. IMPRESSION: 1. Nonspecific but nonobstructive bowel gas pattern. No free air. 2. Large amount of stool in the rectum may represent fecal impaction. Moderate to large amount of stool in the colon.
--- NOTE | 2018-07-20 13:30 | Nephrology Progress Note ---
Assessment/Plan Problem List: (1) Renal failure (2) Anemia (3) HTN (hypertension) (4) Right lower lobe consolidation Assessment Renal failure- Appears pre renal ? underlying Renal Anemia DM Dementia Pneumonia Plan add seroquel add prn clonidin add norvasc gor high BP Hydrate Anemia [facility] eval antibiotics per orders Subjective ROS Limited/Unobtainable: No Constitutional: Reports: malaise, weakness Objective Objective Last 24 Hour Vital Signs Date Time Temp Pulse Resp B/P (MAP) Pulse Ox O2 Delivery O2 Flow Rate FiO2 07/20/18 12:31 189/79 07/20/18 12:00 97.7 88 20 189/79 (115) 94 07/20/18 08:00 97.2 88 20 157/64 (95) 94 07/20/18 04:00 82 07/20/18 04:00 97.4 92 19 150/75 (100) 94 07/20/18 00:00 97.9 86 18 117/70 (86) 95 07/20/18 00:00 78 07/19/18 21:00 Room Air 07/19/18 20:00 97.5 82 18 156/78 (104) 95 07/19/18 20:00 78 07/19/18 16:00 85 07/19/18 16:00 97.7 72 20 140/98 (112) 94 Intake and Output 07/19/18 07/20/18 19:00 07:00 Intake Total 445 ml 1395 ml Output Total 210 ml Balance 235 ml 1395 ml Intake Free Water 100 ml 100 ml IV Total 300 ml 765 ml Tube Feeding 45 ml 530 ml Output Urine Total 200 ml Estimated Blood Loss 10 ml # Voids 2 4 Laboratory Tests 07/20/18 06:50: White Blood Count 11.1H, Red Blood Count 4.00L, Hemoglobin 11.4L, Hematocrit 35.3L, Mean Corpuscular Volume 88, Mean Corpuscular Hemoglobin 28.6, Mean Corpuscular Hemoglobin Concent 32.3, Red Cell Distribution Width 16.5H, Platelet Count 256, Mean Platelet Volume 7.0, Neutrophils (%) (Auto) 77.4H, Lymphocytes (%) (Auto) 11.4L, Monocytes (%) (Auto) 6.4, Eosinophils (%) (Auto) 4.1H, Basophils (%) (Auto) 0.6, Sodium Level 144, Potassium Level 3.9, Chloride Level 111H, Carbon Dioxide Level 23, Anion Gap 10, Blood Urea Nitrogen 34H, Creatinine 2.0H, Estimat Glomerular Filtration Rate , Glucose Level 166H, Lactic Acid Level 1.90, Uric Acid 5.5, Calcium Level 8.9, Phosphorus Level 1.9L , Magnesium Level 1.9, Total Bilirubin 0.2, Aspartate Amino Transf (AST/SGOT) 20 , Alanine Aminotransferase (ALT/SGPT) 28, Alkaline Phosphatase 113, C-Reactive Protein, Quantitative 6.1H, Pro-B-Type Natriuretic Peptide 23070C, Total Protein 6.8, Albumin 2.3L, Globulin 4.5, Albumin/Globulin Ratio 0.5L Height (Feet): 5 Height (Inches): 10.00 Weight (Pounds): 180 General Appearance: agitated - at times Cardiovascular: tachycardia Respiratory/Chest: decreased breath sounds Abdomen: distended, other - ostomy Gregorio Hoyos MD July 20, 2018 13:30
--- NOTE | 2018-07-20 14:28 | Surgery Progress Note ---
Surgery Progress Note Subjective Additional Comments no acute events. resting comfortable. labs noted. exam unchanged and stable. kub noted with fecal Objective Last 24 Hour Vital Signs Date Time Temp Pulse Resp B/P (MAP) Pulse Ox O2 Delivery O2 Flow Rate FiO2 07/20/18 13:40 138/110 (119) 07/20/18 12:31 189/79 07/20/18 12:00 97.7 88 20 189/79 (115) 94 07/20/18 08:00 97.2 88 20 157/64 (95) 94 07/20/18 04:00 82 07/20/18 04:00 97.4 92 19 150/75 (100) 94 07/20/18 00:00 97.9 86 18 117/70 (86) 95 07/20/18 00:00 78 07/19/18 21:00 Room Air 07/19/18 20:00 97.5 82 18 156/78 (104) 95 07/19/18 20:00 78 07/19/18 16:00 85 07/19/18 16:00 97.7 72 20 140/98 (112) 94 I&O Intake and Output 07/19/18 07/20/18 19:00 07:00 Intake Total 445 ml 1395 ml Output Total 210 ml Balance 235 ml 1395 ml Intake Free Water 100 ml 100 ml IV Total 300 ml 765 ml Tube Feeding 45 ml 530 ml Output Urine Total 200 ml Estimated Blood Loss 10 ml # Voids 2 4 Dressing: other Wound: other Drains: other Cardiovascular: RSR Respiratory: decreased breath sounds Abdomen: soft, distended, non-tender, present bowel sounds, other - ostomy viable Extremities: no tenderness, no cyanosis Laboratory Tests Test 07/20/18 06:50 White Blood Count 11.1 K/UL (4.8-10.8) H Red Blood Count 4.00 M/UL (4.70-6.10) L Hemoglobin 11.4 G/DL (14.2-18.0) L Hematocrit 35.3 % (42.0-52.0) L Mean Corpuscular Volume 88 FL (80-99) Mean Corpuscular Hemoglobin 28.6 PG (27.0-31.0) Mean Corpuscular Hemoglobin Concent 32.3 G/DL (32.0-36.0) Red Cell Distribution Width 16.5 % (11.6-14.8) H Platelet Count 256 K/UL (150-450) Mean Platelet Volume 7.0 FL (6.5-10.1) Neutrophils (%) (Auto) 77.4 % (45.0-75.0) H Lymphocytes (%) (Auto) 11.4 % (20.0-45.0) L Monocytes (%) (Auto) 6.4 % (1.0-10.0) Eosinophils (%) (Auto) 4.1 % (0.0-3.0) H Basophils (%) (Auto) 0.6 % (0.0-2.0) Sodium Level 144 MMOL/L (136-145) Potassium Level 3.9 MMOL/L (3.5-5.1) Chloride Level 111 MMOL/L (98-107) H Carbon Dioxide Level 23 MMOL/L (21-32) Anion Gap 10 mmol/L (5-15) Blood Urea Nitrogen 34 mg/dL (7-18) H Creatinine 2.0 MG/DL (0.55-1.30) H Estimat Glomerular Filtration Rate mL/min (>60) Glucose Level 166 MG/DL (74-106) H Lactic Acid Level 1.90 mmol/L (0.4-2.0) Uric Acid 5.5 MG/DL (2.6-7.2) Calcium Level 8.9 MG/DL (8.5-10.1) Phosphorus Level 1.9 MG/DL (2.5-4.9) L Magnesium Level 1.9 MG/DL (1.8-2.4) Total Bilirubin 0.2 MG/DL (0.2-1.0) Aspartate Amino Transf (AST/SGOT) 20 U/L (15-37) Alanine Aminotransferase (ALT/SGPT) 28 U/L (12-78) Alkaline Phosphatase 113 U/L (46-116) C-Reactive Protein, Quantitative 6.1 mg/dL (0.00-0.90) H Pro-B-Type Natriuretic Peptide 79084 pg/mL (0-125) H Total Protein 6.8 G/DL (6.4-8.2) Albumin 2.3 G/DL (3.4-5.0) L Globulin 4.5 g/dL Albumin/Globulin Ratio 0.5 (1.0-2.7) L Plan Problems: (1) GI bleed Assessment & Plan: 82 year old male with acute GI bleed. Initially with melena in ostomy bag which seems to have resolved. no n/v/f/c. labs noted. anemia. ostomy viable and with output. abd soft, nt/nd, bs+ s/p EGD with FB removal and Ulcer okay for diet as tolerated IV fluids PPI trend labs no acute surgical intervention planned thank you (2) diverting colostomy Praveen Traylor July 20, 2018 14:28
[2018-07-20] MEDS ORDERED: Tubing IV Secondary IV ONE (16:52)
[2018-07-20] MEDS ORDERED: NS 275ml ONE (16:52)
--- NOTE | 2018-07-20 16:59 | NUR ---
NURSE NOTES:WOUND CARE NOTES:Pt presented on admission with scarring with hyperpigmention from previous wound to sacrum. Both heels are boggy with non-blanchable erythema .Non-tender when palpated. No other skin concerns noted. Recommendations: Apply Moisture Barrier paste to sacrum,groin and scrotum. Cover sacrum with Optifoam drsg. Change every 3 days and prn. Apply Cavilon Skin Barrier to both heels. Cover each heel with Optifoam drsg. Change every 7 days and prn. Reposition at least every 2hours or as tolerated. Off-load heels with pillow.
--- NOTE | 2018-07-20 19:20 | NUR ---
NURSE NOTES: Received pt and report from ALDO Atkins. Observed pt resting in bed with both eyes open. property assessment monitor is in placed, IV site intact, asymptomatic, and patent. Pt is on bilateral soft wrist restraints; pulses and sensations are present. No swelling noted and skin color is normal. Pt is on G-tube feeding of Glucerna 1.5 @ 55cc/hr. Aspiration precaution noted; HOB is at 30 degrees. Bed is in the lowest position, locked, and alarmed. Call light within reach. No signs/symptoms of acute distress noted at this time. Will continue plan of care.
--- NOTE | 2018-07-20 19:29 | NUR ---
HAND-OFF: Report given to ALDO Rhoades.
[2018-07-20] MEDS: Iron Sucrose 100 MG in NS 55 ML IV SCH (21:50)
--- NOTE | 2018-07-20 22:08 | General Progress Note ---
Assessment/Plan Problem List: (1) HTN (hypertension) ICD Codes: I10 - HTN (hypertension) SNOMED: 44614225 (2) Anemia ICD Codes: D64.9 - Anemia SNOMED: 546922476 (3) GI bleed ICD Codes: K92.2 - Gastrointestinal hemorrhage, unspecified SNOMED: 05199644 Qualifiers: Qualified Codes: K92.1 - Melena (4) DM (diabetes mellitus) ICD Codes: E11.9 - DM (diabetes mellitus) SNOMED: 69827548 Status: stable Assessment/Plan: s/p endoscopy found bleeding pud and dr michaels cauthorized the bleeding vessel needs to be on ppi niddm moniter for further gi bleeding dc in am check h/h Subjective ROS Limited/Unobtainable: Yes Allergies: Coded Allergies: No Known Allergies (Verified , 12/29/06) Objective Last 24 Hour Vital Signs Date Time Temp Pulse Resp B/P (MAP) Pulse Ox O2 Delivery O2 Flow Rate FiO2 07/20/18 16:00 97.9 73 20 158/62 (94) 94 07/20/18 16:00 87 07/20/18 14:55 88 138/110 07/20/18 13:40 138/110 (119) 07/20/18 12:31 189/79 07/20/18 12:00 91 07/20/18 12:00 97.7 88 20 189/79 (115) 94 07/20/18 09:00 Room Air 07/20/18 08:00 87 07/20/18 08:00 97.2 88 20 157/64 (95) 94 07/20/18 04:00 82 07/20/18 04:00 97.4 92 19 150/75 (100) 94 07/20/18 00:00 97.9 86 18 117/70 (86) 95 07/20/18 00:00 78 Intake and Output 07/19/18 07/20/18 18:59 06:59 Intake Total 375 ml 1540 ml Output Total 210 ml Balance 165 ml 1540 ml Intake Free Water 200 ml IV Total 375 ml 765 ml Tube Feeding 575 ml Output Urine Total 200 ml Estimated Blood Loss 10 ml # Voids 2 4 Laboratory Tests 07/20/18 06:50: White Blood Count 11.1H, Red Blood Count 4.00L, Hemoglobin 11.4L, Hematocrit 35.3L, Mean Corpuscular Volume 88, Mean Corpuscular Hemoglobin 28.6, Mean Corpuscular Hemoglobin Concent 32.3, Red Cell Distribution Width 16.5H, Platelet Count 256, Mean Platelet Volume 7.0, Neutrophils (%) (Auto) 77.4H, Lymphocytes (%) (Auto) 11.4L, Monocytes (%) (Auto) 6.4, Eosinophils (%) (Auto) 4.1H, Basophils (%) (Auto) 0.6, Sodium Level 144, Potassium Level 3.9, Chloride Level 111H, Carbon Dioxide Level 23, Anion Gap 10, Blood Urea Nitrogen 34H, Creatinine 2.0H, Estimat Glomerular Filtration Rate , Glucose Level 166H, Lactic Acid Level 1.90, Uric Acid 5.5, Calcium Level 8.9, Phosphorus Level 1.9L , Magnesium Level 1.9, Total Bilirubin 0.2, Aspartate Amino Transf (AST/SGOT) 20 , Alanine Aminotransferase (ALT/SGPT) 28, Alkaline Phosphatase 113, C-Reactive Protein, Quantitative 6.1H, Pro-B-Type Natriuretic Peptide 19638Z, Total Protein 6.8, Albumin 2.3L, Globulin 4.5, Albumin/Globulin Ratio 0.5L Height (Feet): 5 Height (Inches): 10.00 Weight (Pounds): 180 Cardiovascular: normal rate Respiratory/Chest: lungs clear Abdomen: soft Rene Sin MD July 20, 2018 22:08
[2018-07-21] VITALS: BP 148/53
[2018-07-21] MEDS: D5 1/2NS 1,000 ML IV SCH (03:09)
[2018-07-21 04:00] VITALS: BP 139/68
[2018-07-21] MEDS: NovoLOG Insulin Flexpen SUBQ SCH ×2 (05:59→11:32)
--- NOTE | 2018-07-21 07:29 | NUR ---
NURSE NOTES: Received report from ALDO Rhoades. Patient asleep. No acute distress/SOB noted. Still on bilateral soft restraints. Skin intact and clean. Both hands are warm and capillary refill < 3sec. Will continue plan of care.
[2018-07-21 08:00] VITALS: BP 175/66
--- NOTE | 2018-07-21 08:08 | NUR ---
HAND-OFF: Report given to ALDO Gupta.
[2018-07-21 09:04] LABS: BASOPHILS % (AUTO) 1.4 % (0.0-2.0); EOSINOPHILS % (AUTO) 5.4 % (0.0-3.0); HEMATOCRIT 30.3 % (42.0-52.0); HEMOGLOBIN 9.8 G/DL (14.2-18.0); LYMPHOCYTES % (AUTO) 12.2 % (20.0-45.0); MEAN CORPUSCULAR VOLUME 87 FL (80-99); MONOCYTES % (AUTO) 11.5 % (1.0-10.0); NEUTROPHILS % (AUTO) 69.5 % (45.0-75.0); PLATELET COUNT 249 K/UL (150-450); RED BLOOD COUNT 3.47 M/UL (4.70-6.10); RED CELL DISTRIBUTION WIDTH 16.5 % (11.6-14.8); WHITE BLOOD COUNT 9.1 K/UL (4.8-10.8)
[2018-07-21 09:23] LABS: ANION GAP 6 mmol/L (5-15); BLOOD UREA NITROGEN 26 mg/dL (7-18); CALCIUM 8.4 MG/DL (8.5-10.1); CARBON DIOXIDE 24 MMOL/L (21-32); CHLORIDE 112 MMOL/L (98-107); CREATININE 1.9 MG/DL (0.55-1.30); SODIUM 142 MMOL/L (136-145)
[2018-07-21] MEDS: Sucralfate 1gm tab GT SCH ×2 (09:25→12:16)
[2018-07-21] MEDS: Pantoprazole Inj IVP SCH (09:26)
--- NOTE | 2018-07-21 10:28 | GI Progress Note ---
Assessment/Plan Problems: (1) GI bleed ICD Codes: K92.2 - Gastrointestinal hemorrhage, unspecified SNOMED: 25089094 Qualifiers: Qualified Codes: K92.1 - Melena (2) Abdominal pain ICD Codes: R10.9 - Unspecified abdominal pain SNOMED: 72483791 (3) BiPAP (biphasic positive airway pressure) dependence ICD Codes: Z99.89 - Dependence on other enabling machines and devices SNOMED: 514093346 (4) CRI (chronic renal insufficiency) ICD Codes: N18.9 - CRI (chronic renal insufficiency) SNOMED: 035833502 (5) GERD (gastroesophageal reflux disease) ICD Codes: K21.9 - GERD (gastroesophageal reflux disease) SNOMED: 134116703 (6) Diverticulitis ICD Codes: K57.92 - Diverticulitis SNOMED: 796662378 (7) Anemia ICD Codes: D64.9 - Anemia SNOMED: 327972492 (8) diverting colostomy Status: stable, unchanged Status Narrative Discussed with Dr. Ochoa Assessment/Plan s/p EGD summary of findings >> ulcer, GT placement Diverting colostomy Stable H&H KUB reviewed, fecal impaction follow up biopsies and treat accordingly monitor H&H, prn transfusions ppi + carafate GTFs per RD electrolyte correction venofer Bowel regimen follow labs The patient was seen and examined at bedside and all new and available data was reviewed in the patients chart. I agree with the above findings, impression and plan. (Patient seen earlier today. Signature stamp does not reflect patient encounter time.). - Abner Ochoa MD Subjective Subjective limited Objective Last 24 Hour Vital Signs Date Time Temp Pulse Resp B/P (MAP) Pulse Ox O2 Delivery O2 Flow Rate FiO2 07/21/18 09:26 78 175/66 07/21/18 09:00 Room Air 07/21/18 08:00 97.6 78 18 175/66 (102) 95 07/21/18 04:00 98.4 73 18 139/68 (91) 97 07/21/18 04:00 73 07/21/18 00:00 90 07/21/18 00:00 98.6 90 18 148/53 (84) 95 07/20/18 21:00 Room Air 07/20/18 20:00 97.5 92 18 144/84 (104) 95 07/20/18 20:00 90 07/20/18 16:00 97.9 73 20 158/62 (94) 94 07/20/18 16:00 87 07/20/18 14:55 88 138/110 07/20/18 13:40 138/110 (119) 07/20/18 12:31 189/79 07/20/18 12:00 91 07/20/18 12:00 97.7 88 20 189/79 (115) 94 Intake and Output 07/20/18 07/21/18 19:00 07:00 Intake Total 75 ml 825 ml Output Total 400 ml 300 ml Balance -325 ml 525 ml IV Total 75 ml 825 ml Output Urine Total 400 ml 300 ml Laboratory Tests Test 07/21/18 08:50 White Blood Count 9.1 K/UL (4.8-10.8) Red Blood Count 3.47 M/UL (4.70-6.10) L Hemoglobin 9.8 G/DL (14.2-18.0) L Hematocrit 30.3 % (42.0-52.0) L Mean Corpuscular Volume 87 FL (80-99) Mean Corpuscular Hemoglobin 28.3 PG (27.0-31.0) Mean Corpuscular Hemoglobin Concent 32.4 G/DL (32.0-36.0) Red Cell Distribution Width 16.5 % (11.6-14.8) H Platelet Count 249 K/UL (150-450) Mean Platelet Volume 7.9 FL (6.5-10.1) Neutrophils (%) (Auto) 69.5 % (45.0-75.0) Lymphocytes (%) (Auto) 12.2 % (20.0-45.0) L Monocytes (%) (Auto) 11.5 % (1.0-10.0) H Eosinophils (%) (Auto) 5.4 % (0.0-3.0) H Basophils (%) (Auto) 1.4 % (0.0-2.0) Sodium Level 142 MMOL/L (136-145) Potassium Level 4.0 MMOL/L (3.5-5.1) Chloride Level 112 MMOL/L (98-107) H Carbon Dioxide Level 24 MMOL/L (21-32) Anion Gap 6 mmol/L (5-15) Blood Urea Nitrogen 26 mg/dL (7-18) H Creatinine 1.9 MG/DL (0.55-1.30) H Estimat Glomerular Filtration Rate mL/min (>60) Glucose Level 146 MG/DL (74-106) H Calcium Level 8.4 MG/DL (8.5-10.1) L Height (Feet): 5 Height (Inches): 10.00 Weight (Pounds): 192 General Appearance: alert Cardiovascular: normal rate Abdominal Exam: other - Colostomy Meredith Avilez NP July 21, 2018 10:28
[2018-07-21] MEDS ORDERED: Mineral Oil 30ml ud GT SCH (10:32)
[2018-07-21 12:00] VITALS: BP 166/70
--- NOTE | 2018-07-21 12:08 | Hematology/Onc Progress Note ---
Assessment/Plan Assessment/Plan Assessment and Recs: # Anemia of iron deficiency due to gi bleed, in colostomy bag, to be seenby gi --> Anemia workup ordered, ferritin is low at 42 --> No evidence of hemolysis is noted, peripheral smear has been reviewed. --> Hgb goal >7. Transfuse prn. --> Iron x 5 days has been started --> Medications have been reviewed --> gi recs appreciated, egd for 07/19 showed ulceration # Leukocytosis/elevated white blood cell count, unspecified likely related to underlying stress reaction versus underlying infection/pna/sepsis --> have reviewed peripheral smear and bandemia/neutrophilia noted --> continue antibiotics if they have been started by ID team --> monitor for resolution # R lateral nodule and possible chronic effusion. NSBGP, no obstruction. likely pna --> as er pulm eval # Elevated BUN and creatinine. Initial lactic acid elevated --> nephro was consulted # Noncommunicative # Dysphagia s/p gtube # Colsotomy bag The timing of this note does not necessarily reflect the time of the patient was seen. Greatly appreciate consultation! Subjective HEENT: Denies: no symptoms, eye pain, blurred vision, tearing, double vision, ear pain, ear discharge, nose pain, nose congestion, throat pain, throat swelling, mouth pain, mouth swelling, other Cardiovascular: Denies: no symptoms, chest pain, edema, irregular heart rate, lightheadedness, palpitations, syncope, other Respiratory: Denies: no symptoms, cough, shortness of breath, SOB with excertion, SOB at rest, sputum, wheezing, other Endocrine: Denies: no symptoms, excessive sweating, flushing, intolerance to cold, intolerance to heat, increased hunger, increased thirst, increased urine, unexplained weight gain, unexplained weight loss, other Allergies: Coded Allergies: No Known Allergies (Verified , 12/29/06) Subjective 07/19: no events, to get egd today, no fevers, no chills, ulcer was noted 07/20: ulcer was noted on egd, gi seen, on iv iron 07/21: no events, s/p gtube feeds, no fevers or chills, tolerating ftube feeds Objective Objective Current Medications Medications (Trade) Dose Ordered Sig/Jared Route PRN Reason Start Time Stop Time Status Last Admin Dose Admin Acetaminophen (Tylenol) 650 mg Q4H PRN ORAL T>100.5 07/17/18 21:00 08/16/18 20:59 Amlodipine Besylate (Norvasc) 5 mg DAILY GT 07/20/18 13:30 08/19/18 13:29 07/21/18 09:26 Clonidine HCl (Catapres Tab) 0.1 mg Q4H PRN GT bp over 160 syst 07/20/18 13:30 08/19/18 13:29 Dextrose (Dextrose 50%) 25 ml Q30M PRN IV Hypoglycemia 07/17/18 21:00 08/16/18 20:59 Dextrose (Dextrose 50%) 50 ml Q30M PRN IV Hypoglycemia 07/17/18 21:00 08/16/18 20:59 Dextrose/Sodium Chloride 1,000 ml @ 75 mls/hr [id number] IV 07/17/18 19:01 08/16/18 19:00 07/21/18 03:09 Diphenhydramine HCl (Benadryl) 25 mg Q6H PRN ORAL Itching/Pruritis 07/17/18 21:00 08/16/18 20:59 Docusate Sodium (Colace) 100 mg THREE TIMES A DAY ORAL 07/21/18 13:00 08/20/18 12:59 Insulin Aspart (NovoLOG) BEFORE MEALS AND HS SUBQ 07/18/18 06:30 08/17/18 06:29 07/21/18 11:32 Iron Sucrose 100 mg/Sodium Chloride 60 ml @ 240 mls/hr BEDTIME IV 07/18/18 21:00 07/22/18 21:14 07/20/18 21:50 Lorazepam (Ativan 2mg/ml 1ml) 0.5 mg Q4H PRN IV For Anxiety 07/17/18 21:00 07/24/18 20:59 07/21/18 02:05 Morphine Sulfate (Morphine Sulfate) 2 mg Q4H PRN IVP PAIN 4-10 07/17/18 21:00 07/24/18 20:59 Ondansetron HCl (Zofran) 4 mg Q6H PRN IVP Nausea & Vomiting 07/17/18 21:00 08/16/18 20:59 Pantoprazole (Protonix) 40 mg Q12HR IVP 07/17/18 22:00 08/16/18 21:59 07/21/18 09:26 Polyethylene Glycol (Miralax) 17 gm BEDTIME GT 07/21/18 21:00 08/20/18 20:59 Quetiapine Fumarate (SEROquel) 25 mg Q12HR GT 07/20/18 13:30 08/19/18 13:29 07/21/18 09:26 Sucralfate (Carafate) 1 gm FOUR TIMES A DAY GT 07/20/18 13:00 08/19/18 12:59 07/21/18 09:25 Last 24 Hour Vital Signs Date Time Temp Pulse Resp B/P (MAP) Pulse Ox O2 Delivery O2 Flow Rate FiO2 07/21/18 12:00 98.0 81 18 166/70 (102) 97 07/21/18 09:26 78 175/66 07/21/18 09:00 Room Air 07/21/18 08:00 97.6 78 18 175/66 (102) 95 07/21/18 08:00 63 07/21/18 04:00 98.4 73 18 139/68 (91) 97 07/21/18 04:00 73 07/21/18 00:00 90 07/21/18 00:00 98.6 90 18 148/53 (84) 95 07/20/18 21:00 Room Air 07/20/18 20:00 97.5 92 18 144/84 (104) 95 07/20/18 20:00 90 07/20/18 16:00 97.9 73 20 158/62 (94) 94 07/20/18 16:00 87 07/20/18 14:55 88 138/110 07/20/18 13:40 138/110 (119) 07/20/18 12:31 189/79 07/20/18 12:00 91 07/20/18 12:00 97.7 88 20 189/79 (115) 94 07/20/18 09:00 Room Air 07/20/18 08:00 87 07/20/18 08:00 97.2 88 20 157/64 (95) 94 07/20/18 04:00 82 07/20/18 04:00 97.4 92 19 150/75 (100) 94 07/20/18 00:00 97.9 86 18 117/70 (86) 95 07/20/18 00:00 78 07/19/18 21:00 Room Air 07/19/18 20:00 97.5 82 18 156/78 (104) 95 07/19/18 20:00 78 07/19/18 16:00 85 07/19/18 16:00 97.7 72 20 140/98 (112) 94 Intake and Output 07/20/18 07/21/18 19:00 07:00 Intake Total 75 ml 825 ml Output Total 400 ml 300 ml Balance -325 ml 525 ml IV Total 75 ml 825 ml Output Urine Total 400 ml 300 ml Labs Test 07/19/18 06:35 07/20/18 06:50 07/21/18 08:50 White Blood Count 9.1 K/UL (4.8-10.8) 11.1 K/UL (4.8-10.8) 9.1 K/UL (4.8-10.8) Red Blood Count 3.89 M/UL (4.70-6.10) 4.00 M/UL (4.70-6.10) 3.47 M/UL (4.70-6.10) Hemoglobin 11.1 G/DL (14.2-18.0) 11.4 G/DL (14.2-18.0) 9.8 G/DL (14.2-18.0) Hematocrit 34.7 % (42.0-52.0) 35.3 % (42.0-52.0) 30.3 % (42.0-52.0) Mean Corpuscular Volume 89 FL (80-99) 88 FL (80-99) 87 FL (80-99) Mean Corpuscular Hemoglobin 28.4 PG (27.0-31.0) 28.6 PG (27.0-31.0) 28.3 PG (27.0-31.0) Mean Corpuscular Hemoglobin Concent 31.9 G/DL (32.0-36.0) 32.3 G/DL (32.0-36.0) 32.4 G/DL (32.0-36.0) Red Cell Distribution Width 16.3 % (11.6-14.8) 16.5 % (11.6-14.8) 16.5 % (11.6-14.8) Platelet Count 251 K/UL (150-450) 256 K/UL (150-450) 249 K/UL (150-450) Mean Platelet Volume 7.6 FL (6.5-10.1) 7.0 FL (6.5-10.1) 7.9 FL (6.5-10.1) Neutrophils (%) (Auto) 75.8 % (45.0-75.0) 77.4 % (45.0-75.0) 69.5 % (45.0-75.0) Lymphocytes (%) (Auto) 12.7 % (20.0-45.0) 11.4 % (20.0-45.0) 12.2 % (20.0-45.0) Monocytes (%) (Auto) 6.7 % (1.0-10.0) 6.4 % (1.0-10.0) 11.5 % (1.0-10.0) Eosinophils (%) (Auto) 4.1 % (0.0-3.0) 4.1 % (0.0-3.0) 5.4 % (0.0-3.0) Basophils (%) (Auto) 0.7 % (0.0-2.0) 0.6 % (0.0-2.0) 1.4 % (0.0-2.0) Sodium Level 144 MMOL/L (136-145) 142 MMOL/L (136-145) Potassium Level 3.9 MMOL/L (3.5-5.1) 4.0 MMOL/L (3.5-5.1) Chloride Level 111 MMOL/L (98-107) 112 MMOL/L (98-107) Carbon Dioxide Level 23 MMOL/L (21-32) 24 MMOL/L (21-32) Anion Gap 10 mmol/L (5-15) 6 mmol/L (5-15) Blood Urea Nitrogen 34 mg/dL (7-18) 26 mg/dL (7-18) Creatinine 2.0 MG/DL (0.55-1.30) 1.9 MG/DL (0.55-1.30) Estimat Glomerular Filtration Rate mL/min (>60) mL/min (>60) Glucose Level 166 MG/DL (74-106) 146 MG/DL (74-106) Lactic Acid Level 1.90 mmol/L (0.4-2.0) Uric Acid 5.5 MG/DL (2.6-7.2) Calcium Level 8.9 MG/DL (8.5-10.1) 8.4 MG/DL (8.5-10.1) Phosphorus Level 1.9 MG/DL (2.5-4.9) Magnesium Level 1.9 MG/DL (1.8-2.4) Total Bilirubin 0.2 MG/DL (0.2-1.0) Aspartate Amino Transf (AST/SGOT) 20 U/L (15-37) Alanine Aminotransferase (ALT/SGPT) 28 U/L (12-78) Alkaline Phosphatase 113 U/L (46-116) C-Reactive Protein, Quantitative 6.1 mg/dL (0.00-0.90) Pro-B-Type Natriuretic Peptide 89258 pg/mL (0-125) Total Protein 6.8 G/DL (6.4-8.2) Albumin 2.3 G/DL (3.4-5.0) Globulin 4.5 g/dL Albumin/Globulin Ratio 0.5 (1.0-2.7) Height (Feet): 5 Height (Inches): 10.00 Weight (Pounds): 192 Objective Vitals: reviewed, normal Gen: no apparent distress, alert, thin, Chronically Ill Head: normocephalic Eyes: bilateral eye conjunctivae pale ENT: dry mucus membranes Neck: supple Respiratory: rhonchi CV: regular rate, rhythm, no edema GI: soft, no mass, non-distended, other - g tube, colostomy with black stool Gu: normal inspection Psychiatric: mood/affect normal Skin: normal inspection, warm/dry Sohail Reese MD July 21, 2018 12:08
--- NOTE | 2018-07-21 12:38 | NUR ---
DISCHARGE PLANNED PATIENT WILL BE RETURNING TO [facility] RO[facility] [address] SKILLED T: [phone] FOR NURSE TO NURSE REPORT [facility] HAS BEEN ARRANGED FOR 1430 [employer] FORM SETTER CALLED PATIENT'S DAUGHTER, ISAC, LEFT [facility]
[2018-07-21] MEDS ORDERED: Docusate 100mg cap ORAL SCH (13:00)
--- NOTE | 2018-07-21 13:10 | NUR ---
NURSE NOTES: Discharge report given to ALDO Blackman @ [facility]. .
[2018-07-21 13:55] VITALS: BP 114/54
--- NOTE | 2018-07-21 14:49 | NUR ---
NURSE NOTES: Emptied colostomy bag. Removed environmental monitoring technician and IV line. IV site skin clean, no bleeding noted. Removed condom catheter. Denture and glasses given to voting machine repairer.
--- NOTE | 2018-07-21 15:03 | NUR ---
NURSE NOTES: Patient is discharged with stable condition via gurney by [facility].
--- NOTE | 2018-07-21 15:15 | Nephrology Progress Note ---
Assessment/Plan Problem List: (1) Renal failure (2) Anemia (3) HTN (hypertension) (4) Right lower lobe consolidation Assessment Renal failure- Appears pre renal ? underlying Renal Anemia DM Dementia Pneumonia Plan add seroquel add prn clonidin add norvasc gor high BP Hydrate Anemia kenyon GI eval antibiotics per orders Ok to DC ? Subjective ROS Limited/Unobtainable: No Interval Events/Complaints seen at 10.45 am- late note entery Objective Objective Last 24 Hour Vital Signs Date Time Temp Pulse Resp B/P (MAP) Pulse Ox O2 Delivery O2 Flow Rate FiO2 07/21/18 13:55 98.0 61 18 114/54 (74) 97 07/21/18 12:17 166/70 07/21/18 12:00 67 07/21/18 12:00 98.0 81 18 166/70 (102) 97 07/21/18 09:26 78 175/66 07/21/18 09:00 Room Air 07/21/18 08:00 97.6 78 18 175/66 (102) 95 07/21/18 08:00 63 07/21/18 04:00 98.4 73 18 139/68 (91) 97 07/21/18 04:00 73 07/21/18 00:00 90 07/21/18 00:00 98.6 90 18 148/53 (84) 95 07/20/18 21:00 Room Air 07/20/18 20:00 97.5 92 18 144/84 (104) 95 07/20/18 20:00 90 07/20/18 16:00 97.9 73 20 158/62 (94) 94 07/20/18 16:00 87 Intake and Output 07/20/18 07/21/18 19:00 07:00 Intake Total 75 ml 825 ml Output Total 400 ml 300 ml Balance -325 ml 525 ml IV Total 75 ml 825 ml Output Urine Total 400 ml 300 ml Laboratory Tests 07/21/18 08:50: White Blood Count 9.1, Red Blood Count 3.47L, Hemoglobin 9.8L, Hematocrit 30.3L , Mean Corpuscular Volume 87, Mean Corpuscular Hemoglobin 28.3, Mean Corpuscular Hemoglobin Concent 32.4, Red Cell Distribution Width 16.5H, Platelet Count 249, Mean Platelet Volume 7.9, Neutrophils (%) (Auto) 69.5, Lymphocytes (%) (Auto) 12.2L, Monocytes (%) (Auto) 11.5H, Eosinophils (%) (Auto ) 5.4H, Basophils (%) (Auto) 1.4, Sodium Level 142, Potassium Level 4.0, Chloride Level 112H, Carbon Dioxide Level 24, Anion Gap 6, Blood Urea Nitrogen 26H, Creatinine 1.9H, Estimat Glomerular Filtration Rate , Glucose Level 146H, Calcium Level 8.4L Height (Feet): 5 Height (Inches): 10.00 Weight (Pounds): 192 General Appearance: no apparent distress Abdomen: soft, other - ostomy + Objective no change Gregorio Hoyos MD July 21, 2018 15:15
--- NOTE | 2018-07-21 15:49 | Surgery Progress Note ---
Surgery Progress Note Subjective Additional Comments no acute events. comfortable. labs stable. ready for d/c today. ostomy viable and stable. no blood noted Objective Last 24 Hour Vital Signs Date Time Temp Pulse Resp B/P (MAP) Pulse Ox O2 Delivery O2 Flow Rate FiO2 07/21/18 13:55 98.0 61 18 114/54 (74) 97 07/21/18 12:17 166/70 07/21/18 12:00 67 07/21/18 12:00 98.0 81 18 166/70 (102) 97 07/21/18 09:26 78 175/66 07/21/18 09:00 Room Air 07/21/18 08:00 97.6 78 18 175/66 (102) 95 07/21/18 08:00 63 07/21/18 04:00 98.4 73 18 139/68 (91) 97 07/21/18 04:00 73 07/21/18 00:00 90 07/21/18 00:00 98.6 90 18 148/53 (84) 95 07/20/18 21:00 Room Air 07/20/18 20:00 97.5 92 18 144/84 (104) 95 07/20/18 20:00 90 07/20/18 16:00 97.9 73 20 158/62 (94) 94 07/20/18 16:00 87 I&O Intake and Output 07/20/18 07/21/18 19:00 07:00 Intake Total 75 ml 825 ml Output Total 400 ml 300 ml Balance -325 ml 525 ml IV Total 75 ml 825 ml Output Urine Total 400 ml 300 ml Dressing: other Wound: other Drains: other Cardiovascular: RSR Respiratory: clear Abdomen: soft, non-tender, present bowel sounds, non-distended Extremities: no tenderness, no cyanosis Laboratory Tests Test 07/21/18 08:50 White Blood Count 9.1 K/UL (4.8-10.8) Red Blood Count 3.47 M/UL (4.70-6.10) L Hemoglobin 9.8 G/DL (14.2-18.0) L Hematocrit 30.3 % (42.0-52.0) L Mean Corpuscular Volume 87 FL (80-99) Mean Corpuscular Hemoglobin 28.3 PG (27.0-31.0) Mean Corpuscular Hemoglobin Concent 32.4 G/DL (32.0-36.0) Red Cell Distribution Width 16.5 % (11.6-14.8) H Platelet Count 249 K/UL (150-450) Mean Platelet Volume 7.9 FL (6.5-10.1) Neutrophils (%) (Auto) 69.5 % (45.0-75.0) Lymphocytes (%) (Auto) 12.2 % (20.0-45.0) L Monocytes (%) (Auto) 11.5 % (1.0-10.0) H Eosinophils (%) (Auto) 5.4 % (0.0-3.0) H Basophils (%) (Auto) 1.4 % (0.0-2.0) Sodium Level 142 MMOL/L (136-145) Potassium Level 4.0 MMOL/L (3.5-5.1) Chloride Level 112 MMOL/L (98-107) H Carbon Dioxide Level 24 MMOL/L (21-32) Anion Gap 6 mmol/L (5-15) Blood Urea Nitrogen 26 mg/dL (7-18) H Creatinine 1.9 MG/DL (0.55-1.30) H Estimat Glomerular Filtration Rate mL/min (>60) Glucose Level 146 MG/DL (74-106) H Calcium Level 8.4 MG/DL (8.5-10.1) L Plan Problems: (1) GI bleed Assessment & Plan: 82 year old male with acute GI bleed. Initially with melena in ostomy bag which seems to have resolved. no n/v/f/c. labs noted. anemia. ostomy viable and with output. abd soft, nt/nd, bs+ s/p EGD with FB removal and Ulcer okay for diet as tolerated IV fluids PPI trend labs no acute surgical intervention planned okay to d/c from surgical standpoint time seen was approximately 200pm thank you (2) diverting colostomy Praveen Traylor July 21, 2018 15:49
[2018-07-21] MEDS ORDERED: Miralax 17gm pkt GT SCH (21:00)
--- NOTE | 2018-07-22 08:24 | Discharge Summary ---
Discharge Summary Discharge Summary _ DATE OF ADMISSION: 07/17/2018 DATE OF DISCHARGE: 07/21/2018 DISCHARGED BY: Dr Sin REASON FOR ADMISSION: 82 years old male with past medical history of CVA, dementia, dysphagia, G tube , hypertension, diabetes mellitus, schizophrenia, anemia, congestive heart failure, colostomy, presented from the intermediate facility for reported black and tarry bowel movements. No vomiting. No chest pain or shortness of breath. Patient by himself was a poor historian and extremely hard of hearing. Upon evaluation vital signs revealed mild tachycardia, tachypnea , and low blood pressure. Laboratory work-up revealed leukocytosis WBC 13.1, hemoglobin 8.4 , hematocrit 27.2. INR 1.0. Sodium 146. BUN 61, creatinine 2.2. Lactic acid 2.3. Glucose 107. Troponin negative. Stable LFT. Albumin 2.5. Urinalysis revealed +1 leukocyte esterase, no pyuria and occasional bacteria. EKG revealed bifascicular block with underlying normal sinus rhythm. Chest x-ray demonstrated mild residual reticular interstitial opacity at the right lung base . Patient subsequently was admitted for further management. CONSULTANTS: GI specialist Dr. Avelar consumer affairs manager Dr. Hoyos casting supervisor/oncologist Dr. Reese [facility] COURSE: Patient admitted to telemetry floor . Manager Group followed. Patient started on IV hydration. Renal parameters and electrolytes were closely monitored. Electrolytes corrected as needed , and nephrotoxins were avoided. Prior to discharge BUN from 61 down to 26 and creatinine from 2.2 down to 1.9. Per consumer affairs manager , acute renal failure appeared to be prerenal with underlying chronic renal disease. Blood pressure was closely monitored and managed as per consumer affairs manager recommendation. Calcium channel blanca was added to improve blood pressure control along with clonidine on as-needed basis. GI specialist followed. Abdominal x-ray revealed no free air , nonobstructive bowel gas pattern. Large amount of stool in the rectum , possibly representing fecal impaction. Moderate to large amount of stool in the colon. Patient subsequently undergone on EGD with gastrostomy tube exchange. During the procedure found 1.5 cm gastric ulcer , which was cauterized. GI doctor recommended to repeat GI procedure in 1 to 2 months to document healing of the ulcer. Biopsy at the time of this dictation still pending. Follow-up with the biopsy results and treat accordingly if needed. Bowel regimen instituted. Patient was on PPI and Carafate. Tube feeding started as per channel business manager recommendations in terms of tube formula and recommended goal rate. Colostomy care provided. General surgeon seen and evaluated patient due to GI bleeding. Patient initially presented with melena in ostomy bag , which resolved. No nausea, no vomiting, no fever, no chills. Ostomy appeared to be viable with good output. Abdominal soft, nontender, nondistended with positive bowel sounds. Patient was able to tolerate tube feeding. No acute surgical intervention was required at this time as per surgery. Belly Dancer followed. Hemoglobin and hematocrit were closely monitored with goal to keep hemoglobin above 7. Patient undergone transfusion of 2 units of packed red blood cells while in the hospital. According to casting supervisor, anemia was of iron deficiency due to GI bleeding. Ferritin 42. No evidence of hemolysis. Peripheral had smear had been reviewed. Patient started on IV iron supplement while in the hospital. Prior to discharge hemoglobin 9.8, hematocrit 20.3. B12 and folate levels were within normal limits. Blood sugar was managed with sliding scale of insulin. Initial leukocytosis resolved. Per casting supervisor, was nonspecific, likely related to underlying stress reaction. No fevers, no evidence of infection. Supportive care provided. Patient clinically stabilized and was ready for transfer back to intermediate facility for continuation of care. FINAL DIAGNOSES: Acute renal failure on chronic renal insufficiency Dehydration GI bleeding Status post EGD with G-tube replacement Gastric ulcer, status post cauterization Diverting colostomy GERD Anemia of iron deficiency Diabetes mellitus Dementia Hypertension DISCHARGE MEDICATIONS: See Medication Reconciliation list. DISCHARGE INSTRUCTIONS: Patient was discharged to the intermediate facility. Follow up with medical doctor at the facility. I have been assigned to dictate discharge summary for this account. I was not involved in the patient's management. Aggie Spear NP July 22, 2018 08:24
== END 2018-07-21 15:04 | DRG 378 ==
LOC: EDBD 12:54 → EDUNIT# 12:54 → EMR 16:21 → 2E 17:49 → EDBEDREQ 18:03 → EMR 18:25 → 2E 07-18 03:36
DX: K25.4 Chronic or unspecified gastric ulcer with hemorrhage (principal); E87.2 Acidosis; I45.2 Bifascicular block; Z43.1 Encounter for attention to gastrostomy; N17.9 Acute kidney failure, unspecified; K21.9 Gastro-esophageal reflux disease without esophagitis; F03.90 Unspecified dementia, unspecified severity, without behavioral disturbance, psychotic disturbance, mood disturbance, and anxiety; I69.320 Aphasia following cerebral infarction; Z79.4 Long term (current) use of insulin; R13.10 Dysphagia, unspecified; E11.22 Type 2 diabetes mellitus with diabetic chronic kidney disease; I12.9 Hypertensive chronic kidney disease with stage 1 through stage 4 chronic kidney disease, or unspecified chronic kidney disease; N18.9 Chronic kidney disease, unspecified; D50.0 Iron deficiency anemia secondary to blood loss (chronic); E86.0 Dehydration; K57.90 Diverticulosis of intestine, part unspecified, without perforation or abscess without bleeding; Z43.3 Encounter for attention to colostomy
CPT/HCPCS: 36415; 71045; 74018; 80048; 80053; 80061; 81003; 82550; 82607; 82728; 82746; 82962; 82977; 83036; 83540; 83550; 83605; 83690; 83735; 83880; 84100; 84443; 84484; 84550; 85025; 85610; 85730; 86140; 86850; 86900; 86901; 86920; 87040; 87081; 93005; 94003; 94150; 96365; 96368; 96375; 99285; J1815; J2250; J2405

== ENCOUNTER 2018-09-05 18:28 | Inpatient (IN) | payer MEDICARE, OTHER ==
[~2018-09-05] VITALS: Ht 182.9 cm; Wt 71.7 kg
[~2018-09-05 18:28] MED LIST changes: +CARDIZEM30 M1 GT; +COSOPT EYE DROP10 M1 BOTH EYES; +DONEPEZIL HCL5 M2 GT; +DUONEB 0.5-3(2.53 ML HHN; +IPRATROPIU0.2 MG/1 M HHN; +LEVEMIR FL100 UNIT/1 SUBQ; +MULTI-DELYN237 ML GT; +NOVOLOG100 UNITS1 SQ; +POTASSIUM20 MEQ/15 GT; +ROBITUSSIN COU237 M2 GT; +ROBITUSSIN NIG237 ML PO; +TYLENOL325 M1 GT
[2018-09-05] MEDS ORDERED: Albuterol ud Inhalation HHN ONE (18:45)
[2018-09-05] MEDS ORDERED: Ipratropium 0.02% Inh Soln 2.5ml UD HHN ONE (18:45)
--- NOTE | 2018-09-05 18:47 | Emergency Room Report ---
History of Present Illness General Chief Complaint: Dyspnea/Respdistress Source: Medical Record, EMS Present Illness HPI Patient presents with respiratory distress. His oxygen saturation was low. Is transported by EMS and they started him on oxygen. His oxygen is improved. The patient denies any pain at this time. He is unable to answer whether he has diarrhea or dysuria. The patient was admitted earlier in the month for pneumonia. Discharge dx: Acute renal failure on chronic renal insufficiency Dehydration GI bleeding Status post EGD with G-tube replacement Gastric ulcer, status post cauterization Diverting colostomy GERD Anemia of iron deficiency Diabetes mellitus Dementia Hypertension Allergies: Coded Allergies: No Known Allergies (Verified , 12/29/06) Patient History Limited by: medical condition Past Medical History: see triage record, old chart reviewed Past Surgical History: other - G tube Social History: Denies: smoking Social History Narrative SNF Reviewed Nursing Documentation: PMH: Agreed; PSxH: Agreed Nursing Documentation-PM Past Medical History: No History, Except For Hx Cardiac Problems: Yes - Tachycardia Hx Hypertension: Yes Hx Diabetes: Yes Hx Cancer: No Hx Gastrointestinal Problems: Yes - colostomy Hx Neurological Problems: Yes Hx Cerebrovascular Accident: Yes Hx Dementia: Yes Hx Dysphasia: Yes Review of Systems All Other Systems: limited Physical Exam Vital Signs Date Time Temp Pulse Resp B/P (MAP) Pulse Ox O2 Delivery O2 Flow Rate FiO2 09/05/18 18:28 98.8 103 23 128/94 (105) 99 Non-Rebreather 15.0 Sp02 EP Interpretation: reviewed, abnormal - Interpreted as low by me General Appearance: alert, mild distress, Chronically Ill Head: normocephalic Eyes: bilateral eye normal inspection ENT: dry mucus membranes Neck: supple, no meningismus Respiratory: decreased breath sounds, rhonchi Cardiovascular #1: tachycardia Cardiovascular #2: 2+ radial (R) Gastrointestinal: no guarding, no rebound, other - Gastrostomy tube Genitourinary: no CVA tenderness Musculoskeletal: other - Contractures Neurologic: responsive, other - Expressive aphasia Psychiatric: mood/affect normal Skin: warm/dry Medical Decision Making Diagnostic Impression: Primary Impression: Pneumonia Qualified Codes: J18.9 - Pneumonia, unspecified organism Additional Impressions: Renal failure Qualified Codes: N17.9 - Acute kidney failure, unspecified; N18.3 - Chronic kidney disease, stage 3 (moderate) Hypernatremia Elevated lactic acid level Sepsis Qualified Codes: A41.9 - Sepsis, unspecified organism ER Course Antibiotics begun for right-sided pneumonia. Patient presents with respiratory distress. Differential includes pneumonia, aspiration, bronchitis, COPD, acute myocardial infarction amongst others. Also consideration for possible sepsis. Evaluation will be with EKG, chest x-ray and labs. The patient will be treated with IV hydration and breathing treatments. There will be a low threshold for starting antibiotics. EKG without injury. Chest x-ray with right infiltrate. Minimally elevated white count. Initial lactic acid elevated. Elevated sodium. Renal failure. No pyuria. Elevated BNP. Antibiotics begun for right-sided pneumonia. Continue IV hydration. Repeat lactic acid improved. Mentation unchanged. Capillary refill unchanged. Antibiotics infusing. Sepsis reevaluation. Poor pulse oximetry tracing however majority of time on 3 L the patient is satting at 93% and in no distress. BiPAP and intubation not indicated at this time. Admitted to telemetry Dr. Sin. Laboratory Tests Test 09/05/18 18:45 09/05/18 18:57 09/05/18 20:15 White Blood Count 11.7 K/UL (4.8-10.8) H Red Blood Count 3.64 M/UL (4.70-6.10) L Hemoglobin 9.9 G/DL (14.2-18.0) L Hematocrit 32.9 % (42.0-52.0) L Mean Corpuscular Volume 90 FL (80-99) Mean Corpuscular Hemoglobin 27.3 PG (27.0-31.0) Mean Corpuscular Hemoglobin Concent 30.2 G/DL (32.0-36.0) L Red Cell Distribution Width 16.1 % (11.6-14.8) H Platelet Count 319 K/UL (150-450) Mean Platelet Volume 6.9 FL (6.5-10.1) Neutrophils (%) (Auto) 78.2 % (45.0-75.0) H Lymphocytes (%) (Auto) 15.0 % (20.0-45.0) L Monocytes (%) (Auto) 4.2 % (1.0-10.0) Eosinophils (%) (Auto) 1.8 % (0.0-3.0) Basophils (%) (Auto) 0.7 % (0.0-2.0) Prothrombin Time 10.3 SEC (9.30-11.50) Prothrombin Time INR 1.0 (0.9-1.1) PTT 28 SEC (23-33) Sodium Level 151 MMOL/L (136-145) H Potassium Level 4.4 MMOL/L (3.5-5.1) Chloride Level 114 MMOL/L (98-107) H Carbon Dioxide Level 24 MMOL/L (21-32) Anion Gap 13 mmol/L (5-15) Blood Urea Nitrogen 61 mg/dL (7-18) H Creatinine 2.5 MG/DL (0.55-1.30) H Estimate Glomerular Filtration Rate mL/min (>60) Glucose Level 154 MG/DL (74-106) H Lactic Acid Level 2.90 mmol/L (0.4-2.0) H 1.50 mmol/L (0.66-2.22) Calcium Level 9.4 MG/DL (8.5-10.1) Total Bilirubin 0.1 MG/DL (0.2-1.0) L Aspartate Amino Transferase (AST) 23 U/L (15-37) Alanine Aminotransferase (ALT) 20 U/L (12-78) Alkaline Phosphatase 113 U/L (46-116) Total Creatine Kinase 41 U/L (26-308) Troponin I 0.000 ng/mL (0.000-0.056) Pro-B-Type Natriuretic Peptide 2457 pg/mL (0-125) H Total Protein 7.8 G/DL (6.4-8.2) Albumin 2.6 G/DL (3.4-5.0) L Globulin 5.2 g/dL Albumin/Globulin Ratio 0.5 (1.0-2.7) L Lipase 113 U/L (73-393) Urine Color Pale yellow Urine Appearance Slightly cloudy Urine pH 5 (4.5-8.0) Urine Specific [place] 1.015 (1.005-1.035) Urine Protein 3+ (NEGATIVE) H Urine Glucose (UA) Negative (NEGATIVE) Urine Ketones Negative (NEGATIVE) Urine Blood 3+ (NEGATIVE) H Urine Nitrite Negative (NEGATIVE) Urine Bilirubin Negative (NEGATIVE) Urine Urobilinogen Normal MG/DL (0.0-1.0) Urine Leukocyte Esterase Negative (NEGATIVE) Urine RBC 10-15 /HPF (0 - 0) H Urine WBC 0-2 /HPF (0 - 0) Urine Squamous Epithelial Cells Occasional /LPF Urine Amorphous Sediment Many /LPF (NONE) H Urine Bacteria Moderate /HPF (NONE) H EKG Diagnostic Results Rate: tachycardiac Rhythm: NSR ST Segments: no acute changes - RBBB LAD Rhythm Strip Diag. Results EP Interpretation: yes Rhythm: no PVC's, no ectopy, other - st Chest X-Ray Diagnostic Results Chest X-Ray Diagnostic Results : Chest X-Ray Ordered: Yes # of Views/Limited/Complete: 1 View Indication: Shortness of Breath EP Interpretation: Yes Interpretation: no effusion, no pneumothorax, other - Right infiltrate Impression: Other Last Vital Signs Date Time Temp Pulse Resp B/P (MAP) Pulse Ox O2 Delivery O2 Flow Rate FiO2 09/06/18 00:37 4.0 09/06/18 00:36 Nasal Cannula 09/06/18 00:00 98.1 130 30 140/81 (100) 95 09/05/18 23:47 100 Status: improved Disposition: ADMITTED INPATIENT Condition: Serious Pranay York MD Sep 05, 2018 18:47
[2018-09-05 18:58] VITALS: BP 123/76
--- NOTE | 2018-09-05 19:02 | NUR ---
ED Nurse Note: Pt BIBA from [facility] due to Respiratory Distress, pt desatted to 60s% at facility, suspected by staffs to be aspirated. Pt on NRB 15L upon arrival, SAT >95%. Pt AOx2 (name/purpose), could not assess accurately based on mask application. Pt came in with G-tube and Colostomy bag. HR >100, ERMD aware. Will cont to monitor.
[2018-09-05 19:05] LABS: BASOPHILS % (AUTO) 0.7 % (0.0-2.0); EOSINOPHILS % (AUTO) 1.8 % (0.0-3.0); HEMATOCRIT 32.9 % (42.0-52.0); HEMOGLOBIN 9.9 G/DL (14.2-18.0); MEAN CORPUSCULAR VOLUME 90 FL (80-99); MONOCYTES % (AUTO) 4.2 % (1.0-10.0); NEUTROPHILS % (AUTO) 78.2 % (45.0-75.0); PLATELET COUNT 319 K/UL (150-450); RED BLOOD COUNT 3.64 M/UL (4.70-6.10); RED CELL DISTRIBUTION WIDTH 16.1 % (11.6-14.8); WHITE BLOOD COUNT 11.7 K/UL (4.8-10.8)
--- NOTE | 2018-09-05 19:17 | NUR ---
HAND-OFF: Report given to ALDO Torres.
[2018-09-05 19:18] LABS: APPEARANCE,URINE SLIGHTLY CLOUDY; BILIRUBIN, URINE NEGATIVE (NEGATIVE); COLOR,URINE PALE YELLOW; GLUCOSE, URINE (UA) NEGATIVE (NEGATIVE); KETONES,URINE NEGATIVE (NEGATIVE); LEUKOCYTE ESTERASE ,URINE NEGATIVE (NEGATIVE); NITRITE,URINE NEGATIVE (NEGATIVE); PH,URINE 5 (4.5-8.0); PROTEIN,URINE 3+ (NEGATIVE); UROBILINOGEN,URINE NORMAL MG/DL (0.0-1.0)
[2018-09-05 19:20] LABS: ANION GAP 13 mmol/L (5-15); BLOOD UREA NITROGEN 61 mg/dL (7-18); CALCIUM 9.4 MG/DL (8.5-10.1); CARBON DIOXIDE 24 MMOL/L (21-32); CHLORIDE 114 MMOL/L (98-107); CREATININE 2.5 MG/DL (0.55-1.30); POTASSIUM 4.4 MMOL/L (3.5-5.1); SODIUM 151 MMOL/L (136-145)
[2018-09-05 19:29] LABS: ALANINE AMINOTRANSFERASE 20 U/L (12-78); ALBUMIN 2.6 G/DL (3.4-5.0); ALBUMIN/GLOBULIN RATIO 0.5 (1.0-2.7); ALKALINE PHOSPHATASE 113 U/L (46-116); ASPARTATE AMINO TRANSFERASE 23 U/L (15-37); BILIRUBIN,TOTAL 0.1 MG/DL (0.2-1.0); CREATINE KINASE 41 U/L (26-308)
--- NOTE | 2018-09-05 20:15 | NUR ---
ED Nurse Note: LACTIC REFLEX DRAWN; SENT DOWN TO LAB.
--- NOTE | 2018-09-05 22:56 | NUR ---
ED Nurse Note: Called to give report to Irena CARLSON. Nurse refused to receive patient due to o2 sat. Dr. York informed and communcated to receiving nurse that he did not trust the waive form. However the charge nurse insisted that something be done before.
--- NOTE | 2018-09-05 23:27 | NUR ---
ED Nurse Note: RT called to assess the patient, patient is satting at 94% on 4L NC when site for connection was changed.
--- NOTE | 2018-09-05 23:35 | NUR ---
ED Nurse Note: Patient was taken to floor by manufacturing test technician and RN without incident.
--- NOTE | 2018-09-05 23:40 | NUR ---
NURSE NOTES: Patient arrived via gurney accompanied by RN and gastrointestinal technician. Report received from LADO Torres. Belonging list signed ( no belongings) Routine admission care provided. patient is on oxygen via NC 4L/min with sp02 at 95%. patient is alert, responsive, able to make easy needs known. patient mumbles. IV site is to left FA 20 g and is intact. Patient is GT and colostomy to left lower ABD area. Both site is intact. bed is put to lowest position. Call light is within easy reach while in bed. will continue to monitor. Addendum: 09/06/18 at 0037 by Cortney Nieto RN NURSE NOTES: Patient arrived via gurney accompanied by RN and gastrointestinal technician. Report received from ALDO Torres. Belonging list signed ( no belongings) Routine admission care provided. patient is on oxygen via NC 4L/min with sp02 at 95%. patient is alert, responsive, able to make easy needs known. patient mumbles. IV site is to left FA 18 g and is intact. Patient is GT and colostomy to left lower ABD area. Both site is intact. bed is put to lowest position. Call light is within easy reach while in bed. will continue to monitor.
[2018-09-06] VITALS: BP 140/81
--- NOTE | 2018-09-06 | NUR ---
NURSE NOTES: Received call from Dr Sin with admission orders. orders noted and carried out. Currently patient is in bed in high reyez position resting. Will continue to monitor.
[2018-09-06 04:00] VITALS: BP 136/77
[2018-09-06] MEDS: NovoLOG Insulin Flexpen SUBQ SCH ×4 (05:57→20:56)
[2018-09-06 07:19] LABS: HEMATOCRIT 33.7 % (42.0-52.0); MEAN CORPUSCULAR VOLUME 91 FL (80-99); PLATELET COUNT 289 K/UL (150-450); RED CELL DISTRIBUTION WIDTH 16.7 % (11.6-14.8)
[2018-09-06 07:24] LABS: ALANINE AMINOTRANSFERASE 15 U/L (12-78); ALBUMIN 2.2 G/DL (3.4-5.0); ALBUMIN/GLOBULIN RATIO 0.4 (1.0-2.7); ALKALINE PHOSPHATASE 100 U/L (46-116); ANION GAP 14 mmol/L (5-15); ASPARTATE AMINO TRANSFERASE 17 U/L (15-37); BILIRUBIN,TOTAL 0.2 MG/DL (0.2-1.0); BLOOD UREA NITROGEN 55 mg/dL (7-18); CALCIUM 9.6 MG/DL (8.5-10.1); CARBON DIOXIDE 21 MMOL/L (21-32); CHLORIDE 122 MMOL/L (98-107); CREATININE 2.6 MG/DL (0.55-1.30); POTASSIUM 5.4 MMOL/L (3.5-5.1); SODIUM 157 MMOL/L (136-145)
[2018-09-06 07:25] LABS: WHITE BLOOD COUNT 26.6 K/UL (4.8-10.8)
--- NOTE | 2018-09-06 07:25 | NUR ---
NURSE NOTES: Received report form ALDO Osborn. Patient is alert x 1, patient is confused. Patient words are garbled. Patient is on oxygen via NC 4L/min and noted breathing through his mouth. Patient is on cardiac nurse practitioner. IV site is to left FA 18 g and is intact. Patient is on GT running Glucerna 1.2 @ 30ml/hr. Noted colostomy to left lower ABD area. Both sites are intact. Patient is on fall precaution: bed in lowest position, patient semi-fowlers >30degree, bed locked, side rails x3 up, call light within easy reach, and bed alarm on. Will continue to monitor.
--- NOTE | 2018-09-06 07:30 | NUR ---
NURSE NOTES: 07:28- Received call from lab for 26.6 WBC elevated. 07:30- Called Dr. Freitas . Left message about elevated WBC. Awaiting callback.
--- NOTE | 2018-09-06 07:32 | NUR ---
NURSE NOTES: Noted a Ms. Santana, daughter of patient, stating she is the POA called for Luis A Young. Will follow up with home health care social worker.
--- NOTE | 2018-09-06 07:37 | NUR ---
NURSE NOTES: Report given to ALDO Lugo
[2018-09-06 08:00] VITALS: BP 137/70
--- NOTE | 2018-09-06 08:58 | Consultation ---
Consult Note Consult Note asked to eval for renal failure- known to me from his previous admission HPI Patient presents with respiratory distress. His oxygen saturation was low. Is transported by EMS and they start him on oxygen. His oxygen is improved on 2. The patient denies any pain at this time. He is unable to answer whether he has diarrhea or dysuria. Limited by: medical condition Past Surgical History: other - colostomy, G tube Social History Narrative nursing home facility Hx Cardiac Problems: Yes Hx Hypertension: Yes Hx Diabetes: Yes Hx Gastrointestinal Problems: Yes - colostomy Hx Neurological Problems: Yes - dementia Hx Cerebrovascular Accident: Yes Hx Dementia: Yes examined data reviewed . Assessment/Plan (1) Renal failure- acute on chronic- (2) Anemia (3) HTN (hypertension) (4) Pneumoia / Sepsis (5) DM / Proteinuria (6) Dementia (7) HyperNatremia: Dehydration, free water deficit Hydrate- D5w Anemia kenyon Kayexelate as needed monitor renal parameters avoid nephrotoxics Gregorio Hoyos MD Sep 06, 2018 08:58
--- NOTE | 2018-09-06 10:43 | GI Initial Consult Note ---
History of Present Illness General Date patient seen: Sep 06, 2018 Time patient seen: 10:38 Reason for Hospitalization: Dyspnea/Respdistress Referring physician: GERMAN Reason for Consultation: ANEMIA Present Illness HPI Patient presents with respiratory distress. His oxygen saturation was low. Is transported by EMS and they start him on oxygen. His oxygen is improved on 2. The patient denies any pain at this time. He is unable to answer whether he has diarrhea or dysuria. GI consulted for anemia, G-tube management. ROS limited, patient unable to provide any significant history. All information obtained from medical record. Patient seen, awake alert no apparent distress with no active signs symptoms of nausea or vomiting. Noted the patient has diverting colostomy. The patient is status post EGD with G-tube placement back in June 2018 in which an ulcer was also noted. Home Meds Reported Medications Insulin Aspart (Novolog Flexpen) 100 Unit/1 Ml Insuln.pen, 6 UNITS SQ BIDAC 07/18/18 Guaifenesin/Dextromethorphan (Robitussin Cough-Chest Dm Liq) 237 Ml Liquid, 10 ML GT Q8HR PRN for For Cough, ML 07/18/18 Ipratropium/Albuterol Sulfate (DuoNeb 0.5-3(2.5)mg/3ml) 3 Ml Ampul.neb, 3 ML HHN Q6HR PRN for Shortness of Breath, EA 07/18/18 Donepezil Hcl* (DONEPEZIL HCL*) 5 Mg Tab.rapdis, 5 MG GT DAILY, TAB 07/18/18 Potassium Chloride (Potassium Chloride) 20 Meq/15 Ml Liquid, 20 MEQ GT DAILY, ML 07/18/18 Multivitamin Liquid* (MULTI-DELYN*) 237 Ml Liquid, 5 ML GT DAILY, ML 07/18/18 Acetaminophen (Tylenol) 325 Mg Capsule, 650 MG GT Q6HR PRN for Mild Pain/Temp > 100.5 MDD 3000 MG, CAP 07/17/18 Insulin Detemir (LEVEMIR FLEXPEN) 100 Unit/1 Ml Insuln.pen, 75 UNITS SUBQ DAILY , UNITS 07/17/18 Diltiazem Hcl* (CARDIZEM*) 30 Mg Tablet, 30 MG GT Q8HR, TAB 07/17/18 Dorzolamide Hcl/Timolol Maleat (COSOPT EYE DROPS) 10 Ml Drops, 1 DROP BOTH EYES BID for GLAUCOMA, ML 07/17/18 Insulin Detemir (LEVEMIR) 100 Unit/1 Ml Vial, 30 UNITS SUBQ QHS, VIAL 10/12/12 Med list reviewed/reconciled: Yes Allergies: Coded Allergies: No Known Allergies (Verified , 12/29/06) Patient History Limited by: medical condition History Provided By: Medical Record PMH Narrative Constipation Acute renal failure on chronic renal insufficiency Dehydration GI bleeding Status post EGD with G-tube replacement Gastric ulcer, status post cauterization Diverting colostomy GERD Anemia of iron deficiency Diabetes mellitus Dementia Hypertension Limited by: medical condition Past Medical History: see triage record, old chart reviewed Past Surgical History: other - G tube Social History Narrative SNF Reviewed Nursing Documentation: PMH: Agreed; PSxH: Agreed Nursing Documentation-PMH Past Medical History: No History, Except For Hx Cardiac Problems: Yes - Tachycardia Hx Hypertension: Yes Hx Diabetes: Yes Hx Cancer: No Hx Gastrointestinal Problems: Yes - colostomy Hx Neurological Problems: Yes Hx Cerebrovascular Accident: Yes Social History: Denies: smoking, alcohol use, drug use, other Review of Systems All Other Systems: negative except mentioned in HPI Physical Exam Vital Signs Date Time Temp Pulse Resp B/P (MAP) Pulse Ox O2 Delivery O2 Flow Rate FiO2 09/05/18 18:28 98.8 103 23 128/94 (105) 99 Non-Rebreather 15.0 09/05/18 18:58 100 Sp02 EP Interpretation: reviewed, normal Labs Laboratory Tests Test 09/05/18 18:45 09/05/18 18:57 09/05/18 20:15 09/06/18 06:20 White Blood Count 11.7 K/UL (4.8-10.8) H 26.6 K/UL (4.8-10.8) #*H Red Blood Count 3.64 M/UL (4.70-6.10) L 3.70 M/UL (4.70-6.10) L Hemoglobin 9.9 G/DL (14.2-18.0) L 10.0 G/DL (14.2-18.0) L Hematocrit 32.9 % (42.0-52.0) L 33.7 % (42.0-52.0) L Mean Corpuscular Volume 90 FL (80-99) 91 FL (80-99) Mean Corpuscular Hemoglobin 27.3 PG (27.0-31.0) 27.1 PG (27.0-31.0) Mean Corpuscular Hemoglobin Concent 30.2 G/DL (32.0-36.0) L 29.8 G/DL (32.0-36.0) L Red Cell Distribution Width 16.1 % (11.6-14.8) H 16.7 % (11.6-14.8) H Platelet Count 319 K/UL (150-450) 289 K/UL (150-450) Mean Platelet Volume 6.9 FL (6.5-10.1) 7.2 FL (6.5-10.1) Neutrophils (%) (Auto) 78.2 % (45.0-75.0) H % (45.0-75.0) Lymphocytes (%) (Auto) 15.0 % (20.0-45.0) L % (20.0-45.0) Monocytes (%) (Auto) 4.2 % (1.0-10.0) % (1.0-10.0) Eosinophils (%) (Auto) 1.8 % (0.0-3.0) % (0.0-3.0) Basophils (%) (Auto) 0.7 % (0.0-2.0) % (0.0-2.0) Prothrombin Time 10.3 SEC (9.30-11.50) Prothromb Time International Ratio 1.0 (0.9-1.1) Activated Partial Thromboplast Time 28 SEC (23-33) Sodium Level 151 MMOL/L (136-145) H 157 MMOL/L (136-145) H Potassium Level 4.4 MMOL/L (3.5-5.1) 5.4 MMOL/L (3.5-5.1) H Chloride Level 114 MMOL/L (98-107) H 122 MMOL/L (98-107) H Carbon Dioxide Level 24 MMOL/L (21-32) 21 MMOL/L (21-32) Anion Gap 13 mmol/L (5-15) 14 mmol/L (5-15) Blood Urea Nitrogen 61 mg/dL (7-18) H 55 mg/dL (7-18) H Creatinine 2.5 MG/DL (0.55-1.30) H 2.6 MG/DL (0.55-1.30) H Estimat Glomerular Filtration Rate mL/min (>60) mL/min (>60) Glucose Level 154 MG/DL (74-106) H 133 MG/DL (74-106) H Lactic Acid Level 2.90 mmol/L (0.4-2.0) H 1.50 mmol/L (0.66-2.22) Calcium Level 9.4 MG/DL (8.5-10.1) 9.6 MG/DL (8.5-10.1) Total Bilirubin 0.1 MG/DL (0.2-1.0) L 0.2 MG/DL (0.2-1.0) Aspartate Amino Transf (AST/SGOT) 23 U/L (15-37) 17 U/L (15-37) Alanine Aminotransferase (ALT/SGPT) 20 U/L (12-78) 15 U/L (12-78) Alkaline Phosphatase 113 U/L (46-116) 100 U/L (46-116) Total Creatine Kinase 41 U/L (26-308) Troponin I 0.000 ng/mL (0.000-0.056) Pro-B-Type Natriuretic Peptide 2457 pg/mL (0-125) H Total Protein 7.8 G/DL (6.4-8.2) 7.5 G/DL (6.4-8.2) Albumin 2.6 G/DL (3.4-5.0) L 2.2 G/DL (3.4-5.0) L Globulin 5.2 g/dL 5.3 g/dL Albumin/Globulin Ratio 0.5 (1.0-2.7) L 0.4 (1.0-2.7) L Lipase 113 U/L (73-393) Urine Color Pale yellow Urine Appearance Slightly cloudy Urine pH 5 (4.5-8.0) Urine Specific [place] 1.015 (1.005-1.035) Urine Protein 3+ (NEGATIVE) H Urine Glucose (UA) Negative (NEGATIVE) Urine Ketones Negative (NEGATIVE) Urine Blood 3+ (NEGATIVE) H Urine Nitrite Negative (NEGATIVE) Urine Bilirubin Negative (NEGATIVE) Urine Urobilinogen Normal MG/DL (0.0-1.0) Urine Leukocyte Esterase Negative (NEGATIVE) Urine RBC 10-15 /HPF (0 - 0) H Urine WBC 0-2 /HPF (0 - 0) Urine Squamous Epithelial Cells Occasional /LPF Urine Amorphous Sediment Many /LPF (NONE) H Urine Bacteria Moderate /HPF (NONE) H Neutrophils % (Manual) Pending Lymphocytes % (Manual) Pending Platelet Estimate Pending Platelet Morphology Pending General Appearance: well appearing, no apparent distress, alert Head: normocephalic EENT: PERRL/EOMI, normal ENT inspection Neck: supple Respiratory: normal breath sounds, no respiratory distress Cardiovascular: normal rate Gastrointestinal: normal inspection, non tender, soft, normal bowel sounds, non -distended, other - Diverting colostomy, G-tube Rectal: deferred Genitourinary: deferred Neurologic: alert, responsive Skin: normal inspection, normal color, no rash, warm/dry, palpation normal, well hydrated Lymphatic: normal inspection, no adenopathy Current Medications Current Medications Medications (Trade) Dose Ordered Sig/Jared Route PRN Reason Start Time Stop Time Status Last Admin Dose Admin Dextrose 1,000 ml @ 100 mls/hr Q10H IV 09/06/18 09:00 10/06/18 08:59 09/06/18 09:20 Dextrose (Dextrose 50%) 25 ml Q30M PRN IV Hypoglycemia 09/06/18 00:00 10/06/18 00:00 Dextrose (Dextrose 50%) 50 ml Q30M PRN IV Hypoglycemia 09/06/18 00:00 10/06/18 00:00 Diltiazem HCl (Cardizem) 30 mg Q8HR GT 09/06/18 14:00 10/06/18 13:59 Insulin Aspart (NovoLOG) BEFORE MEALS AND HS SUBQ 09/06/18 06:30 10/06/18 06:29 09/06/18 05:57 GI: Plan Problems: (1) S/P colostomy (2) PEG (percutaneous endoscopic gastrostomy) status (3) diverting colostomy (4) GERD (gastroesophageal reflux disease) (5) Diverticulitis (6) Anemia Plan Supportive care at this time, GI procedures only if emergent Follow-up video swallow for oral gratification anemia work up OB stool r/o GI bleed monitor H&H, prn transfusions bowel regimen ppi fu labs Discussed with Dr. Ochoa. Thank you for this patient referral, we will follow. The patient was seen and examined at bedside and all new and available data was reviewed in the patients chart. I agree with the above findings, impression and plan. (Patient seen earlier today. Signature stamp does not reflect patient encounter time.). - MD Fatmata BlankenshipSoutheast Arizona Medical CenterHeavenly VIRK Sep 06, 2018 10:43
--- NOTE | 2018-09-06 11:59 | NUR ---
SWALLOW/SPEECH THERAPY NOTE: REFERRED BY DR. PORTER FOR SWALLOW EVAL, SEE FULL REPORT TO FOLLOW IN ST CARE ACTIVITY SECTION. 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 AT THAT TIME HE HAD A HIGH RISK FOR ASPIRATION AND PENETRATION WITH ALL CONSISTENCIES DUE TO SENSORIMOTOR DEFICITS AND NONORAL FEEDINGS WERE RECOMMENDED AND GT PLACED. FOR QUALITY OF LIFE, LIQUIFIED PUREED LIKE NECTAR THICK SOUP TSP ONLY RECOMMENDED BUT NOT INITIATED AT [facility]. AT [facility] ON A FORTIFIED PUREED DIET AND NECTAR THICK LIQUIDS AND [facility] FOR SKILLED SWALLOW TX AND MANAGEMENT. PATIENT ALSO STILL HAS GT. NO PO NOW AND ONLY RECEIVING CONTINUOUS FEEDS OF NEPRO PER RN. ALERT BUT VERY DYSARTHRIC, ABLE TO COMPREHEND SOME SIMPLE SENTENCES AND AGREES THAT HE WANTS TO EAT. PATIENT HAS UPPER DENTURES IN NO LOWER TEETH. ON ROOM AIR. RR 22 - 26 AT TIMES ON 4 LITERS 02 NC. INITIAL IMPRESSIONS HIGH RISK FOR PERSISTENT OR WORSENED ORAL PREP AND OROPHARYNGEAL DYSPHAGIA AND SILENT ASPIRATION (DUE TO NEURO DEFICITS MULTIPLE CVAS AND DEMENTIA DIAGNOSES) POOR ABILITY TO FOLLOW ORAL COMMANDS LIMITED TONGUE SPEED AND ROM (DID NOT COMPLETE ELEVATION/DEPRESSION AND LATERALIZATION EVEN WITH VISUAL CUES ? ORAL APRAXIA) VOICE IS SOFT AND SO IS VOLITIONAL COUGH NO NEED FOR ORAL SUCTION RECOMMENDATIONS: COMPLETE MOD BARIUM SWALLOW STUDY (LAST ONE 2 MONTHS AGO) TO FURTHER ASSESS SWALLOW, DETERMINE SILENT ASPIRATION RISK/ETIOLOGY WILL HOLD PO TRIALS FOR MOD BARIUM SWALLOW STUDY DUE TO HIGH SILENT ASPIRATION RISK CONTINUE WITH PEG FEEDINGS AND ORAL CARE SUCTION PRN RN REMOVED UPPER DENTURES (LOWERS NOT PRESENT BUT HAD LAST ADMIT) D/W JOHNIE GARG AND ALDO GARCÍA LEFT MESSAGE WITH PHYSICIAN WHO APPROVED MBSS
[2018-09-06 12:00] VITALS: BP 143/70
--- NOTE | 2018-09-06 12:07 | NUR ---
RD ASSESSMENT & RECOMMENDATIONS SEE CARE ACTIVITY FOR COMPLETE ASSESSMENT DAILY ESTIMATED NEEDS: Needs based on DM, renal, cardiac 78.8kg 25-30 kcals/kg 7105-1445 total kcals 1-1.5 g protein/kg 79-118 g total protein 25-30 mL/kg 4763-6236 total fluid mLs NUTRITION DIAGNOSIS: *Swallowing difficulty R/T dysphagia, decreased cognitive fxn as evidenced by spt is GT dependent (CURRENT TF: Nepro @30 ml) ENTERAL NUTRITION RECOMMENDATIONS--->>> Nepro @46ml/hr x 24 hrs to provide 1104ml, 1987 kcal, 89g pro, 803ml free H2O * As medically able, increase Nepro by 5ml q4-6 hrs to goal of 46ml/hr x24 hrs to better meet est needs. * HOB over 30 degrees/ water flush per MD. ADDITIONAL RECOMMENDATIONS: * RECALIBRATE bedscale wt for accurate CBW * Monitor lytes daily w/ TF, replete as needed * F/up post VSS for possible oral grat -> as able, rec liberalized regular diet for oral grat -
[2018-09-06] MEDS: Piperacillin/Tazobactam 3.375 GM in NS 110 ML IVPB SCH ×2 (12:21→20:57)
--- NOTE | 2018-09-06 12:35 | NUR ---
SWALLOW/SPEECH THERAPY NOTE: MODIFIED BARIUM SWALLOW STUDY COMPLETED (LIMITED PT REFUSED AFTER 3 BOLUS TRIALS BY MAKING A FIST EVEN THOUGH HE INITIALLY WANTED TO EAT/DRINK). SEE FULL REPORT IN [facility] CARE ACTIVITY SECTION OR CALL [phone]. ALERT AND UPPER DENTURES OUT NEEDED SOME DENTURE GEL REMOVED FROM RIGHT SIDE OF MOUTH AND SALIVA VERY STICKY. GOOD VITALS ON 4 LITERS OF 02 NC. INITIAL IMPRESSIONS MODERATE TO MODERATELY SEVERE ORAL PREP AND OROPHARYNGEAL DYSPHAGIA (ON THE DYSPHAGIA OUTCOME SEVERITY SCALE OR KRYSTAL) WITH SIGNIFICANT INCREASE IN ORAL PREP AND OROPHARYNGEAL TRANSIT TIMES DUE TO SENSORIMOTOR DEFICITS AND COMPOUNDED BY PSYCH AND BEHAVIORAL ISSUES. VERY INEFFICIENT SWALLOW. APPEARED TO HAVE TRACE PENETRATION (W/O COUGH) AFTER THE SWALLOW AND ABOVE VOCAL FOLDS DUE TO REDUCED HYOLARYNGEAL EXCURSION (PYRIFORM SINUS RESIDUE) REQUIRED MIN OROPHARYNGEAL RESIDUE AFTER THE STUDY (AND LAST CUP THIN LIQUID TRIAL) DUE TO OROPHARYNGEAL DYSMOTILITY AND RESULTANT RESIDUE BACK OF THROAT AND ORAL CAVITY (BOTH LATERAL AND ANTERIOR SULCI). RISK FOR CHRONIC TRACE ASPIRATION/PENETRATION NO ASPIRATION BUT HAS SIGNIFICANT RISK OF ASPIRATION AND PENETRATION WITH ALL CONSISTENCIES DUE TO THE FOLLOWING DEFICITS: ORAL PREP IMPAIRMENT ORAL APRAXIA LIPS/TONGUE ORAL SENSORY AWARENESS Oral Impairment Lip Closure Tongue Control Bolus prep/mastication Bolus french/lingual motion Oral residue Init. pharyngeal swallow Pharyngeal Impairment Laryngeal elevation (LE) Ant. hyoid excursion Late mostly Laryngeal vestibule closure Pharyngeal stripping wave Pharyngoesophageal segment Opening Tongue base retraction Pharyngeal residue Decreased pharyngeal sensation GROSSLY FUNCTIONAL ESOPHAGEAL PHASE (LIMITED LATERAL VIEW AND DUE TO SHOULDER OBSTRUCTION REFUSED AFTER THIN LIQ CUP SIP DIFFICULTY FOLLOWING COMMANDS SO LIMITED USE OF STRATEGIES DIFFICULTY SWALLOWING EXTRA TIME EVEN WITH MAX CUES (OR VERY DELAYED) SPONTANEOUS WILL LIP CHIN TO MOVE BOLUS ANTERIOR-POSTERIOR POOR ABILITY TO CLOSE LIPS TO COMMAND FOR LIP CLOSURE WITH TSP/CUP (POURED IN BOLUS) RECOMMENDATIONS: CONTINUE WITH NONORAL FEEDINGS AND ORAL CARE/SUCTION NO PO FOR NOW EXCEPT WITH [facility] AT [facility] FOR TRIAL THERAPY (HE MAY NOT COOPERATE OR BE ABLE TO PARTICIPATE) SKILLED DYSPHAGIA MANAGEMENT AND TX AT [facility] WITH [facility] EDUCATED/TRAINED RN (RAQUEL) AND FINAL FINISHER FORGING DIES (BRITANY) IN ORAL CARE/SUCTION NEEDS D/W DR PORTER WHO AGREES WITH RECOMMENDATIONS
[2018-09-06] MEDS: dilTIAZem HCl 30mg tab GT SCH ×2 (12:36→18:56)
[2018-09-06] MEDS ORDERED: Sodium Polystyrene Sulfonate 15gm Powder GT SCH (12:45)
--- NOTE | 2018-09-06 12:55 | Diagnostic Imaging Report ---
Indication: Shortness of breath Technique: One view of the chest Comparison: 07/17/2018 Findings: Patient is rotated to the right. Interstitial opacities are seen throughout the right lung. Interstitial opacities are also seen in the left lung base. This is much more extensive than on the prior study. The heart is borderline enlarged. The pleural spaces are grossly clear Impression: Diffuse right lung and left basilar interstitial disease. This may represent infiltrates versus edema. Correlate with clinical findings
[2018-09-06] MEDS ORDERED: Sodium Polystyrene Sulfon/Sorb 15gm/60ml Susp GT SCH (13:00)
--- NOTE | 2018-09-06 13:17 | NUR ---
CASE MANAGEMENT: INITIAL REVIEW 82 YO M LUCIANA FROM [facility] CC: DYSPNEA PMHx: ARF. PEG. DM. DEMENTIA. HTN. SI:PNA. T 98.8 HR 103 RR 23 B/P 128/94 SATS 99% ON 15L/NRB WBC 11.7 NA 151 CL 114 BUN 61 CR 2.5 GLU 154 TBILI 0.1 LACTIC ACID 2.9 BNP 2457 IS: DUO NEB HHN X1 NS BOLUS X2 PATIENT ADMITTED TO TELE 09/05/2018 @ 1924 DCP: PATIENT TO BE DISCHARGED TO SNF ONCE MEDICALLY CLEARED. PLAN OF CARE: PULMO CONSULT Addendum: 09/06/18 at 1326 by Doreen Mata CM INTERQUAL MET
[2018-09-06] MEDS ORDERED: dilTIAZem HCl 30mg tab GT SCH (14:00)
[2018-09-06 16:00] VITALS: BP 144/74
--- NOTE | 2018-09-06 16:45 | Consultation ---
DATE OF CONSULTATION: 09/06/2018 INFECTIOUS DISEASES CONSULTATION CONSULTING PHYSICIAN: Eric Marina M.D. REFERRING PHYSICIAN: Rene Sin M.D. REASON FOR CONSULTATION: Leukocytosis. HISTORY OF PRESENTING ILLNESS: This is an 82-year-old gentleman with history of renal failure, gastrointestinal bleeding, status post G-tube placement, gastric ulcer, diabetes, hypertension, and dementia, who comes in with respiratory distress. He was found to have a leukocytosis and an Infectious Diseases consultation has been obtained for antibiotics. PAST MEDICAL HISTORY: 1. History of renal failure. 2. GI bleeding. 3. Status post G-tube placement. 4. Gastric ulcer. 5. History of colostomy. 6. History of GERD. 7. History of anemia. 8. Diabetes. 9. Hypertension. 10. Dementia. 11. CVA. SOCIAL HISTORY: Unknown. FAMILY HISTORY: Unknown. REVIEW OF SYSTEMS: Unable to obtain currently. MEDICATIONS: As an inpatient, the patient is on diltiazem and insulin. ALLERGIES: No known drug allergies. PHYSICAL EXAMINATION: VITAL SIGNS: Temperature of 99.7, T-max of 99.7, pulse of 108, respiratory of 22, blood pressure 133/70, and O2 saturation of 96%. HEENT: Pupils equally reactive to light and accommodation. Mouth appears clean without thrush. NECK: Supple. No adenopathy. No JVD. CARDIOVASCULAR: Regular rate and rhythm. No murmurs. LUNGS: Clear to auscultation bilaterally. No crackles. No wheezes. ABDOMEN: Soft and nontender. G-tube site appears clean. Ostomy noted. EXTREMITIES: No cyanosis, no clubbing, no edema. LABORATORY AND DIAGNOSTIC DATA: White count 26.6, hemoglobin 10, hematocrit 33.7, MCV 91, and platelet count of 289,000. Sodium 157, potassium 5.4, chloride 122, bicarb 21, BUN 55, creatinine 2.6, and glucose 133. Calcium 9.6. Total bilirubin 0.2. AST 17, ALT 15, and alkaline phosphatase 100. Total protein 7.5. Albumin 2.2. Lipase of 113. UA is showing 0 to 2 white cells. Urine cultures are negative. Chest x-ray is showing a right-sided infiltrate. ASSESSMENT: This an 82-year-old gentleman with history of dementia, hypertension, and renal failure, who comes in with shortness of breath and is found to have: 1. Right-sided pneumonia, would be concerned regarding aspiration pneumonia. 2. Leukocytosis. 3. He does not have any sign of a urinary tract infection currently. 4. Renal failure. 5. Diabetes. PLAN: 1. We will start the patient on Zosyn. 2. We will order a sputum for Gram stain and culture. 3. We will follow up cultures and adjust antibiotics accordingly. I would like to thank, Dr. Sin, for this consultation. Eric Marina M.D. DR: GLENDA JOB#: [id number] CC: Rene Sin M.D.; Fax#: [phone]
--- NOTE | 2018-09-06 19:40 | NUR ---
HAND-OFF: Report given to ALDO Mejia. patient is resting in bed.
--- NOTE | 2018-09-06 19:45 | NUR ---
NURSE NOTES: patient received. patient in no acute distress at this time. patient complains of no pain at this time. patient sleeping at this time. patient alert x1-2. confused. patient IV intact patient and asymptomatic. bed alarm on. Gtube patient and running. patient has no residual. condom cath is secure and draining. Patient colostomy bag intact and stoma is pink. patient skin intact. nasal canula intact and Patient currently has it on. patient bed bound. bed alarm on. patient aspiration precaution. bed sitting up position. patient NPO. will continue to monitor.
[2018-09-06 20:00] VITALS: BP 128/78
[2018-09-06] MEDS: Pantoprazole Inj IVP SCH (20:57)
[2018-09-07] VITALS: BP 143/74
[2018-09-07] MEDS: dilTIAZem HCl 30mg tab GT SCH ×4 (00:35→17:38)
--- NOTE | 2018-09-07 03:45 | History and Physical Report ---
DATE OF ADMISSION: 09/05/2018 HISTORY OF PRESENT ILLNESS: The patient is admitted for pneumonia. The patient had shortness of breath, respiratory insufficiency at the facility. This happened while he was eating, apparently choked as well and aspirated pneumonia. The patient is a poor historian. He has aphasia and cannot get reliable history from the patient. Admitted for pneumonia. The patient is also diabetic. PAST MEDICAL HISTORY: History of aphasia, hypertension, chronic renal insufficiency, NIDDM, history of diverticulitis, history of GERD, history of electrolyte imbalance, and history of megacolon. PAST SURGICAL HISTORY: Colostomy, repair of megacolon, PEG. ALLERGIES: No known allergies. MEDICATIONS: Cosopt eye drops, diltiazem, insulin, multivitamin, potassium, and Levemir. FAMILY HISTORY: Unable to obtain. SOCIAL HISTORY: Unable to obtain. He comes from a [facility]. REVIEW OF SYSTEMS: Unable to obtain; however, the patient does complain of shortness of breath and coughing. Denies chest pain.GASTROINTESTINAL: Denies nausea, vomiting, or diarrhea. No fever or chills. RESPIRATORY: shortness of breath. Denies cough. EXTREMITIES: Denies pain in the lower extremities. NEUROLOGIC: The patient is a poor historian, aphasic. PHYSICAL EXAMINATION: VITAL SIGNS: Temperature 98.4, pulse is 101, blood pressure 143/70. HEENT: PERRLA. NECK: Supple. CHEST: Bibasilar rales. CARDIOVASCULAR: Regular rate and rhythm. GASTROINTESTINAL: Soft, distended. G-tube site and colostomy intact. EXTREMITIES: +1 edema and lower extremity weakness, which is chronic for him. LABORATORY DATA: WBC of 11.7, hemoglobin of 9.9, and platelets 319,000. Sodium 151, potassium 4.4, glucose of 154, BUN of 61, and creatinine 2.5. ASSESSMENT AND PLAN: Acute renal failure on top of chronic renal failure, leukocytosis, pneumonia. insufficiency. I have asked Dr. Hoyos, Dr. Ochoa, and Dr. Marina to see the patient for the above-mentioned diagnoses and treatment. We need to monitor the patient very closely. Rene Sin M.D. DR: EYAL JOB#: [id number] CC:
[2018-09-07 04:00] VITALS: BP 135/66
[2018-09-07] MEDS: NovoLOG Insulin Flexpen SUBQ SCH ×4 (06:01→21:46)
[2018-09-07 06:42] LABS: INR 1.1 (0.9-1.1)
[2018-09-07 07:03] LABS: HEMATOCRIT 27.6 % (42.0-52.0); HEMOGLOBIN 8.5 G/DL (14.2-18.0); MEAN CORPUSCULAR VOLUME 90 FL (80-99); PLATELET COUNT 242 K/UL (150-450); RED BLOOD COUNT 3.07 M/UL (4.70-6.10); RED CELL DISTRIBUTION WIDTH 16.4 % (11.6-14.8); WHITE BLOOD COUNT 18.4 K/UL (4.8-10.8)
--- NOTE | 2018-09-07 07:25 | NUR ---
HAND-OFF: Report given to scarlett barrientos.
[2018-09-07 07:34] LABS: % IRON SATURATION 7 % (15-50); IRON 9 ug/dL (50-175); TOTAL IRON BINDING CAPACITY 132 ug/dL (250-450)
[2018-09-07 07:36] LABS: ALANINE AMINOTRANSFERASE 13 U/L (12-78); ALBUMIN 1.9 G/DL (3.4-5.0); ALBUMIN/GLOBULIN RATIO 0.4 (1.0-2.7); ALKALINE PHOSPHATASE 100 U/L (46-116); ANION GAP 11 mmol/L (5-15); ASPARTATE AMINO TRANSFERASE 15 U/L (15-37); BILIRUBIN,TOTAL 0.2 MG/DL (0.2-1.0); BLOOD UREA NITROGEN 47 mg/dL (7-18); CARBON DIOXIDE 25 MMOL/L (21-32); CHLORIDE 110 MMOL/L (98-107); CHOLESTEROL 70 MG/DL (< 200); FERRITIN 156 NG/ML (8-388); GAMMA GLUTAMYL TRANSPEPTIDASE 9 U/L (5-85); HDL CHOLESTEROL 26 MG/DL (40-60); POTASSIUM 3.9 MMOL/L (3.5-5.1); SODIUM 146 MMOL/L (136-145); TRIGLYCERIDES 81 MG/DL (30-150)
--- NOTE | 2018-09-07 07:41 | NUR ---
NURSE NOTES: Patient is asleep. HOB is elevated. Tube feeding is running at desired goal 30ml/hr. No s/s of distress. Side rails are upx3, bed is locked and in lowest position. Will continue to monitor.
[2018-09-07 08:00] VITALS: BP 140/74
[2018-09-07 08:00] LABS: CREATININE 2.5 MG/DL (0.55-1.30)
--- NOTE | 2018-09-07 08:31 | Consultation ---
History of Present Illness General Chief Complaint: Dyspnea/Respdistress Referring physician: GERMAN Reason for Consultation: ANEMIA Present Illness Allergies: Coded Allergies: No Known Allergies (Verified , 12/29/06) Medication History Scheduled Diltiazem Hcl* (Cardizem*), 30 MG GT Q8HR, (Reported) Donepezil Hcl* (Donepezil Hcl*), 5 MG GT DAILY, (Reported) Dorzolamide Hcl/Timolol Maleat (Cosopt Eye Drops), 1 DROP BOTH EYES BID, ( Reported) Insulin Aspart (Novolog Flexpen), 6 UNITS SQ BIDAC, (Reported) Insulin Detemir (Levemir), 30 UNITS SUBQ QHS, (Reported) Insulin Detemir (Levemir Flexpen), 75 UNITS SUBQ DAILY, (Reported) Multivitamin Liquid* (Multi-Delyn*), 5 ML GT DAILY, (Reported) Potassium Chloride (Potassium Chloride), 20 MEQ GT DAILY, (Reported) Scheduled PRN Acetaminophen (Tylenol), 650 MG GT Q6HR PRN for Mild Pain/Temp > 100.5, ( Reported) Guaifenesin/Dextromethorphan (Robitussin Cough-Chest Dm Liq), 10 ML GT Q8HR PRN for For Cough, (Reported) Ipratropium/Albuterol Sulfate (DuoNeb 0.5-3(2.5)mg/3ml), 3 ML HHN Q6HR PRN for Shortness of Breath, (Reported) Patient History Healthcare decision maker Resuscitation status Full Code Advanced Directive on File Yes Physical Exam Last 24 Hour Vital Signs Date Time Temp Pulse Resp B/P (MAP) Pulse Ox O2 Delivery O2 Flow Rate FiO2 09/07/18 05:59 96 135/66 09/07/18 04:00 98.6 100 18 135/66 (89) 95 09/07/18 04:00 96 09/07/18 00:37 4.0 09/07/18 00:35 100 143/74 09/07/18 00:00 87 09/07/18 00:00 98.6 100 18 143/74 (97) 96 09/06/18 21:00 Nasal Cannula 4.0 09/06/18 20:00 96 09/06/18 20:00 98.7 100 16 128/78 (95) 96 09/06/18 18:56 82 144/74 09/06/18 16:00 98.6 100 20 144/74 (97) 96 09/06/18 15:40 98 09/06/18 12:36 105 135/70 09/06/18 12:00 98.4 101 18 143/70 (94) 96 09/06/18 11:48 96 09/06/18 09:00 Nasal Cannula 4.0 Intake and Output 09/06/18 09/07/18 19:00 07:00 Intake Total 30 ml Output Total 400 ml Balance -400 ml 30 ml Tube Feeding 30 ml Output Urine Total 400 ml # Voids 4 2 # Bowel Movements 1 1 Laboratory Tests Test 09/07/18 05:50 White Blood Count 18.4 K/UL (4.8-10.8) H Red Blood Count 3.07 M/UL (4.70-6.10) L Hemoglobin 8.5 G/DL (14.2-18.0) L Hematocrit 27.6 % (42.0-52.0) L Mean Corpuscular Volume 90 FL (80-99) Mean Corpuscular Hemoglobin 27.7 PG (27.0-31.0) Mean Corpuscular Hemoglobin Concent 30.9 G/DL (32.0-36.0) L Red Cell Distribution Width 16.4 % (11.6-14.8) H Platelet Count 242 K/UL (150-450) Mean Platelet Volume 7.2 FL (6.5-10.1) Neutrophils (%) (Auto) % (45.0-75.0) Lymphocytes (%) (Auto) % (20.0-45.0) Monocytes (%) (Auto) % (1.0-10.0) Eosinophils (%) (Auto) % (0.0-3.0) Basophils (%) (Auto) % (0.0-2.0) Differential Total Cells Counted 100 Neutrophils % (Manual) 86 % (45-75) H Lymphocytes % (Manual) 10 % (20-45) L Monocytes % (Manual) 4 % (1-10) Eosinophils % (Manual) 0 % (0-3) Basophils % (Manual) 0 % (0-2) Band Neutrophils 0 % (0-8) Platelet Estimate Adequate Platelet Morphology Normal Anisocytosis 1+ Reticulocyte Count Pending Prothrombin Time 11.6 SEC (9.30-11.50) H Prothromb Time International Ratio 1.1 (0.9-1.1) Activated Partial Thromboplast Time 32 SEC (23-33) Sodium Level 146 MMOL/L (136-145) #H Potassium Level 3.9 MMOL/L (3.5-5.1) Chloride Level 110 MMOL/L (98-107) H Carbon Dioxide Level 25 MMOL/L (21-32) Anion Gap 11 mmol/L (5-15) Blood Urea Nitrogen 47 mg/dL (7-18) H Creatinine 2.5 MG/DL (0.55-1.30) H Estimat Glomerular Filtration Rate mL/min (>60) Glucose Level 319 MG/DL (74-106) #H Hemoglobin A1c 6.0 % (4.3-6.0) Uric Acid 4.9 MG/DL (2.6-7.2) Calcium Level 9.0 MG/DL (8.5-10.1) Phosphorus Level 3.0 MG/DL (2.5-4.9) Magnesium Level 2.1 MG/DL (1.8-2.4) Iron Level 9 ug/dL (50-175) L Total Iron Binding Capacity 132 ug/dL (250-450) L Percent Iron Saturation 7 % (15-50) L Unsaturated Iron Binding 123 ug/dL (112-346) Ferritin 156 NG/ML (8-388) Total Bilirubin 0.2 MG/DL (0.2-1.0) Gamma Glutamyl Transpeptidase 9 U/L (5-85) Aspartate Amino Transf (AST/SGOT) 15 U/L (15-37) Alanine Aminotransferase (ALT/SGPT) 13 U/L (12-78) Alkaline Phosphatase 100 U/L (46-116) Troponin I 0.326 ng/mL (0.000-0.056) C-Reactive Protein, Quantitative 40.4 mg/dL (0.00-0.90) H Pro-B-Type Natriuretic Peptide 6996 pg/mL (0-125) H Total Protein 6.7 G/DL (6.4-8.2) Albumin 1.9 G/DL (3.4-5.0) L Globulin 4.8 g/dL Albumin/Globulin Ratio 0.4 (1.0-2.7) L Triglycerides Level 81 MG/DL (30-150) Cholesterol Level 70 MG/DL (< 200) LDL Cholesterol 33 mg/dL (<100) HDL Cholesterol 26 MG/DL (40-60) L Cholesterol/HDL Ratio 2.7 (3.3-4.4) L Vitamin B12 Level 617 PG/ML (193-986) Folate 13.8 NG/ML (8.6-58.9) Thyroid Stimulating Hormone (TSH) 0.585 uiU/mL (0.358-3.740) Free Thyroxine 1.10 NG/DL (0.76-1.46) Height (Feet): 6 Height (Inches): 0.00 Weight (Pounds): 190 Medications Current Medications Medications (Trade) Dose Ordered Sig/Jared Route PRN Reason Start Time Stop Time Status Last Admin Dose Admin Clonidine HCl (Catapres Tab) 0.1 mg Q4H PRN GT bp over 165 syst 09/06/18 12:00 10/06/18 11:59 Dextrose 1,000 ml @ 100 mls/hr Q10H IV 09/06/18 09:00 10/06/18 08:59 09/07/18 04:52 Dextrose (Dextrose 50%) 25 ml Q30M PRN IV Hypoglycemia 09/06/18 00:00 10/06/18 00:00 Dextrose (Dextrose 50%) 50 ml Q30M PRN IV Hypoglycemia 09/06/18 00:00 10/06/18 00:00 Diltiazem HCl (Cardizem) 30 mg Q6HR GT 09/06/18 12:00 10/06/18 13:59 09/07/18 05:59 Insulin Aspart (NovoLOG) BEFORE MEALS AND HS SUBQ 09/06/18 06:30 10/06/18 06:29 09/07/18 06:01 Pantoprazole (Protonix) 40 mg EVERY 12 HOURS IVP 09/06/18 21:00 10/06/18 20:59 09/06/18 20:57 Piperacillin Sod/ Tazobactam Sod 3.375 gm/Sodium Chloride 110 ml @ 27.5 mls/hr EVERY 12 HOURS IVPB 09/06/18 11:30 09/11/18 11:29 09/06/18 20:57 Assessment/Plan Assessment/Plan: Hematology Consultation Chief Complaint: Gastrointestinal Bleed DOS: 09/07/18 RFC: Anemia evaluation, recurrent, likely iron deficiency REQ : Rene Sin ID 82y old male, well known to me, sent in for pna, has been started on abx as per id, has evaluated the patient, also now with anemia that is worse. He denies vomiting at this time. He does have a cough. He denies chest pain or shortness of breath. He does feel dehydrated at this time. The patient is a poor historian. He is extremely hard of hearing. No further history is available. The patient has a colostomy, hx of peg. Seen by gi. Past medical history Acute hypoxemic respiratory failure requiring BiPAP, resolved Hypertensive urgency, resolved Sepsis secondary to pneumonia Pneumonia Anemia DM2 with the diabetic nephropathy Chronic renal insufficiency Bifascicular bundle branch block History of CVA GERD Dysphagia Status post PEG placement 07/03/2017 G-tube Encephalopathy Diverging colostomy Dementia with behavioral issues Allergies: No Known Allergies (Verified , 12/29/06) Limited by: medical condition Past Medical History: see triage record, old chart reviewed Past Surgical History: other - colostomy, G tube Social History: Denies: alcohol use Social History Narrative halfway facility Reviewed Nursing Documentation: PMH: Agreed; PSxH: Agreed Hx Cardiac Problems: Yes Hx Hypertension: Yes Hx Diabetes: Yes Hx Cancer: No Hx Gastrointestinal Problems: Yes - colostomy Hx Neurological Problems: Yes - dementia Hx Cerebrovascular Accident: Yes Hx Dementia: Yes Review of Systems: limited PE Vital Signs reviewed Vitals: reviewed, normal Gen: no apparent distress, alert, thin, Chronically Ill Neck: supple Respiratory: rhonchi CV: regular rate, rhythm, no edema GI: soft, no mass, non-distended, other - g tube/colostomy Gu: normal inspection Skin: normal inspection, warm/dry Labs: reviewed Imaging:noted Assessment and Recs: # Anemia of iron deficiency due to gi bleed, in the past ferritin was low 42, has required iron therapy, iv on prior admission --> Anemia workup has been ordered, ferritin is low at 42-->132, appears at this time to be repleted with iron --> No evidence of hemolysis is noted, peripheral smear has been reviewed. --> Hgb goal >7. Transfuse prn. --> Medications have been reviewed --> gi recs appreciated --> trend hgb 10-->8.5 # Leukocytosis/elevated white blood cell count, unspecified likely related to underlying stress reaction versus underlying infection/pna/sepsis --> have reviewed peripheral smear and bandemia/neutrophilia noted --> continue antibiotics if they have been started by ID team --> monitor for resolution --> trend 26k--.18k # R lateral nodule and possible chronic effusion. NSBGP, no obstruction. likely pna --> as er pulm eval # Elevated BUN and creatinine. --> nephro recs # Noncommunicative # Colostomy bag The timing of this note does not necessarily reflect the time of the patient was seen. Greatly appreciate consultation! Sohail Reese MD Sep 07, 2018 08:31
[2018-09-07] MEDS: Pantoprazole Inj IVP SCH ×2 (08:44→21:44)
--- NOTE | 2018-09-07 08:56 | GI Progress Note ---
Assessment/Plan Problems: (1) PEG (percutaneous endoscopic gastrostomy) status ICD Codes: Z93.1 - Gastrostomy status SNOMED: 554864466, 414646423 (2) S/P colostomy ICD Codes: Z93.3 - Colostomy status SNOMED: 13971475, 004593489, 656018730 (3) Sepsis ICD Codes: A41.9 - Sepsis, unspecified organism SNOMED: 95426859 Qualifiers: Qualified Codes: A41.9 - Sepsis, unspecified organism (4) GERD (gastroesophageal reflux disease) ICD Codes: K21.9 - GERD (gastroesophageal reflux disease) SNOMED: 422528686 (5) Anemia ICD Codes: D64.9 - Anemia SNOMED: 883255895 (6) Hypoalbuminemia ICD Codes: E88.09 - Other disorders of plasma-protein metabolism, not elsewhere classified SNOMED: 628362428 Status: unchanged Status Narrative Discussed with Dr. Ochoa Assessment/Plan Supportive care at this time, GI procedures only if emergent Follow-up video swallow for oral gratification >> recommendation to maintain patient n.p.o. with nonoral feedings anemia work up OB stool r/o GI bleed monitor H&H, prn transfusions bowel regimen ppi fu labs The patient was seen and examined at bedside and all new and available data was reviewed in the patients chart. I agree with the above findings, impression and plan. (Patient seen earlier today. Signature stamp does not reflect patient encounter time.). - Abner Ochoa MD Subjective Subjective Limited Objective Last 24 Hour Vital Signs Date Time Temp Pulse Resp B/P (MAP) Pulse Ox O2 Delivery O2 Flow Rate FiO2 09/07/18 05:59 96 135/66 09/07/18 04:00 98.6 100 18 135/66 (89) 95 09/07/18 04:00 96 09/07/18 00:37 4.0 09/07/18 00:35 100 143/74 09/07/18 00:00 87 09/07/18 00:00 98.6 100 18 143/74 (97) 96 09/06/18 21:00 Nasal Cannula 4.0 09/06/18 20:00 96 09/06/18 20:00 98.7 100 16 128/78 (95) 96 7/15/19 18:56 82 144/74 09/06/18 16:00 98.6 100 20 144/74 (97) 96 09/06/18 15:40 98 09/06/18 12:36 105 135/70 09/06/18 12:00 98.4 101 18 143/70 (94) 96 09/06/18 11:48 96 09/06/18 09:00 Nasal Cannula 4.0 Intake and Output 09/06/18 09/07/18 19:00 07:00 Intake Total 30 ml Output Total 400 ml Balance -400 ml 30 ml Tube Feeding 30 ml Output Urine Total 400 ml # Voids 4 2 # Bowel Movements 1 1 Laboratory Tests Test 09/07/18 05:50 White Blood Count 18.4 K/UL (4.8-10.8) H Red Blood Count 3.07 M/UL (4.70-6.10) L Hemoglobin 8.5 G/DL (14.2-18.0) L Hematocrit 27.6 % (42.0-52.0) L Mean Corpuscular Volume 90 FL (80-99) Mean Corpuscular Hemoglobin 27.7 PG (27.0-31.0) Mean Corpuscular Hemoglobin Concent 30.9 G/DL (32.0-36.0) L Red Cell Distribution Width 16.4 % (11.6-14.8) H Platelet Count 242 K/UL (150-450) Mean Platelet Volume 7.2 FL (6.5-10.1) Neutrophils (%) (Auto) % (45.0-75.0) Lymphocytes (%) (Auto) % (20.0-45.0) Monocytes (%) (Auto) % (1.0-10.0) Eosinophils (%) (Auto) % (0.0-3.0) Basophils (%) (Auto) % (0.0-2.0) Differential Total Cells Counted 100 Neutrophils % (Manual) 86 % (45-75) H Lymphocytes % (Manual) 10 % (20-45) L Monocytes % (Manual) 4 % (1-10) Eosinophils % (Manual) 0 % (0-3) Basophils % (Manual) 0 % (0-2) Band Neutrophils 0 % (0-8) Platelet Estimate Adequate Platelet Morphology Normal Anisocytosis 1+ Reticulocyte Count Pending Prothrombin Time 11.6 SEC (9.30-11.50) H Prothromb Time International Ratio 1.1 (0.9-1.1) Activated Partial Thromboplast Time 32 SEC (23-33) Sodium Level 146 MMOL/L (136-145) #H Potassium Level 3.9 MMOL/L (3.5-5.1) Chloride Level 110 MMOL/L (98-107) H Carbon Dioxide Level 25 MMOL/L (21-32) Anion Gap 11 mmol/L (5-15) Blood Urea Nitrogen 47 mg/dL (7-18) H Creatinine 2.5 MG/DL (0.55-1.30) H Estimat Glomerular Filtration Rate mL/min (>60) Glucose Level 319 MG/DL (74-106) #H Hemoglobin A1c 6.0 % (4.3-6.0) Uric Acid 4.9 MG/DL (2.6-7.2) Calcium Level 9.0 MG/DL (8.5-10.1) Phosphorus Level 3.0 MG/DL (2.5-4.9) Magnesium Level 2.1 MG/DL (1.8-2.4) Iron Level 9 ug/dL (50-175) L Total Iron Binding Capacity 132 ug/dL (250-450) L Percent Iron Saturation 7 % (15-50) L Unsaturated Iron Binding 123 ug/dL (112-346) Ferritin 156 NG/ML (8-388) Total Bilirubin 0.2 MG/DL (0.2-1.0) Gamma Glutamyl Transpeptidase 9 U/L (5-85) Aspartate Amino Transf (AST/SGOT) 15 U/L (15-37) Alanine Aminotransferase (ALT/SGPT) 13 U/L (12-78) Alkaline Phosphatase 100 U/L (46-116) Troponin I 0.326 ng/mL (0.000-0.056) C-Reactive Protein, Quantitative 40.4 mg/dL (0.00-0.90) H Pro-B-Type Natriuretic Peptide 6996 pg/mL (0-125) H Total Protein 6.7 G/DL (6.4-8.2) Albumin 1.9 G/DL (3.4-5.0) L Globulin 4.8 g/dL Albumin/Globulin Ratio 0.4 (1.0-2.7) L Triglycerides Level 81 MG/DL (30-150) Cholesterol Level 70 MG/DL (< 200) LDL Cholesterol 33 mg/dL (<100) HDL Cholesterol 26 MG/DL (40-60) L Cholesterol/HDL Ratio 2.7 (3.3-4.4) L Vitamin B12 Level 617 PG/ML (193-986) Folate 13.8 NG/ML (8.6-58.9) Thyroid Stimulating Hormone (TSH) 0.585 uiU/mL (0.358-3.740) Free Thyroxine 1.10 NG/DL (0.76-1.46) Height (Feet): 6 Height (Inches): 0.00 Weight (Pounds): 190 General Appearance: WD/WN, no apparent distress, alert Cardiovascular: normal rate Respiratory/Chest: normal breath sounds, no respiratory distress Abdominal Exam: normal bowel sounds, non tender, soft, GT site - Clean dry and intact Extremities: non-tender Meredith Avilez NP Sep 07, 2018 08:55
[2018-09-07] MEDS: Piperacillin/Tazobactam 3.375 GM in NS 110 ML IVPB SCH ×2 (09:50→21:44)
--- NOTE | 2018-09-07 10:36 | Nephrology Progress Note ---
Assessment/Plan Problem List: (1) Renal failure (ARF), acute on chronic (2) HTN (hypertension) (3) DM (diabetes mellitus) (4) Pneumonia (5) Hypoalbuminemia (6) Hypernatremia (7) S/P colostomy (8) PEG (percutaneous endoscopic gastrostomy) status Assessment (1) Renal failure- acute on chronic- (2) Anemia (3) HTN (hypertension) (4) Pneumoia / Sepsis (5) DM / Proteinuria (6) Dementia (7) HyperNatremia: Dehydration, free water deficit (8) Colostomy and PEG status Plan Hydrate- D5w Anemia kenyon Kayexelate as needed monitor renal parameters avoid nephrotoxics Subjective ROS Limited/Unobtainable: No Constitutional: Reports: malaise Objective Objective Last 24 Hour Vital Signs Date Time Temp Pulse Resp B/P (MAP) Pulse Ox O2 Delivery O2 Flow Rate FiO2 09/07/18 08:30 Nasal Cannula 4.0 09/07/18 08:00 75 09/07/18 08:00 98.9 84 18 140/74 (96) 98 09/07/18 05:59 96 135/66 09/07/18 04:00 98.6 100 18 135/66 (89) 95 09/07/18 04:00 96 09/07/18 00:37 4.0 09/07/18 00:35 100 143/74 09/07/18 00:00 87 09/07/18 00:00 98.6 100 18 143/74 (97) 96 09/06/18 21:00 Nasal Cannula 4.0 09/06/18 20:00 96 09/06/18 20:00 98.7 100 16 128/78 (95) 96 09/06/18 18:56 82 144/74 09/06/18 16:00 98.6 100 20 144/74 (97) 96 09/06/18 15:40 98 09/06/18 12:36 105 135/70 09/06/18 12:00 98.4 101 18 143/70 (94) 96 09/06/18 11:48 96 Intake and Output 09/06/18 09/07/18 19:00 07:00 Intake Total 30 ml Output Total 400 ml Balance -400 ml 30 ml Tube Feeding 30 ml Output Urine Total 400 ml # Voids 4 2 # Bowel Movements 1 1 Laboratory Tests 09/07/18 05:50: White Blood Count 18.4H, Red Blood Count 3.07L, Hemoglobin 8.5L, Hematocrit 27.6L, Mean Corpuscular Volume 90, Mean Corpuscular Hemoglobin 27.7, Mean Corpuscular Hemoglobin Concent 30.9L, Red Cell Distribution Width 16.4H, Platelet Count 242, Mean Platelet Volume 7.2, Neutrophils (%) (Auto) , Lymphocytes (%) (Auto) , Monocytes (%) (Auto) , Eosinophils (%) (Auto) , Basophils (%) (Auto) , Differential Total Cells Counted 100, Neutrophils % ( Manual) 86H, Lymphocytes % (Manual) 10L, Monocytes % (Manual) 4, Eosinophils % ( Manual) 0, Basophils % (Manual) 0, Band Neutrophils 0, Platelet Estimate Adequate, Platelet Morphology Normal, Anisocytosis 1+, Reticulocyte Count 0.4L, Prothrombin Time 11.6H, Prothromb Time International Ratio 1.1, Activated Partial Thromboplast Time 32, Sodium Level 146#H, Potassium Level 3.9, Chloride Level 110H, Carbon Dioxide Level 25, Anion Gap 11, Blood Urea Nitrogen 47H, Creatinine 2.5H, Estimat Glomerular Filtration Rate , Glucose Level 319#H, Hemoglobin A1c 6.0, Uric Acid 4.9, Calcium Level 9.0, Phosphorus Level 3.0, Magnesium Level 2.1, Iron Level 9L, Total Iron Binding Capacity 132L, Percent Iron Saturation 7L, Unsaturated Iron Binding 123, Ferritin 156, Total Bilirubin 0.2, Gamma Glutamyl Transpeptidase 9, Aspartate Amino Transf (AST/SGOT) 15, Alanine Aminotransferase (ALT/SGPT) 13, Alkaline Phosphatase 100, Troponin I 0.326H, C-Reactive Protein, Quantitative 40.4H, Pro-B-Type Natriuretic Peptide 6996H, Total Protein 6.7, Albumin 1.9L, Globulin 4.8, Albumin/Globulin Ratio 0.4L, Triglycerides Level 81, Cholesterol Level 70, LDL Cholesterol 33, HDL Cholesterol 26L, Cholesterol/HDL Ratio 2.7L, Vitamin B12 Level 617, Folate 13.8 , Thyroid Stimulating Hormone (TSH) 0.585, Free Thyroxine 1.10 Height (Feet): 6 Height (Inches): 0.00 Weight (Pounds): 190 General Appearance: no apparent distress, lethargic Cardiovascular: tachycardia Respiratory/Chest: decreased breath sounds Abdomen: distended, other - PEG and COLOSTOMY Gregorio Hoyos MD Sep 07, 2018 10:36
[2018-09-07] MEDS: Tamsulosin 0.4mg cap ORAL SCH ×2 (10:58→17:33)
[2018-09-07 12:00] VITALS: BP 118/64
--- NOTE | 2018-09-07 14:54 | Diagnostic Imaging Report ---
Indication: Acute renal failure Technique: Grayscale and duplex images of the kidneys, retroperitoneum, and bladder were obtained. Comparison: none Findings: Right kidney measures 10.7 cm in length. Left kidney measures 9.2 cm in length. Both kidneys demonstrate slightly increased echogenicity. No hydronephrosis. There are cysts demonstrated bilaterally. Normal inferior vena cava. Bladder is normal. Calcifications are seen in the prostate Impression: Mildly increased renal echogenicity, could indicate medical renal disease Negative for hydronephrosis.
--- NOTE | 2018-09-07 15:14 | Diagnostic Imaging Report ---
Indications: Dysphagia Technique: Patient ingested multiple substances under the supervision of speech pathology. Video fluoroscopic recording performed under the supervision of the radiologist. Total fluoroscopy time 135.5 seconds. Total dose area product 0.67778 mGycm2 Total number of images-5 Comparison: none Findings: Ingestion of thin liquid barium results in early pooling in the posterior oropharynx/upper hypopharynx. There is delayed initiation of deglutition. Trace penetration of thin liquid barium is noted. Impression: Positive for trace penetration of thin liquid barium Please refer to speech pathology report for more detailed analysis
[2018-09-07 16:00] VITALS: BP 147/68
--- NOTE | 2018-09-07 19:52 | NUR ---
NURSE NOTES: Lab called this AM to report elevated troponin. Dr. Sams contacted. Physician spoke to supervisor of guidance and testing and reported that he would come in to see patient. No new orders received.
--- NOTE | 2018-09-07 19:55 | NUR ---
HAND-OFF: Report given to ALDO Mejia.
[2018-09-07 20:00] VITALS: BP 154/69
--- NOTE | 2018-09-07 20:00 | NUR ---
NURSE NOTES: patient received. patient in no acute distress at this time. patient complains of no pain at this time. patient awake and oriented x2. patient IV intact patent and asymptomatic. patient condom cath intact. Gtube intact and running Nephro at 30ml. no residual. Patient colostomy bag intact and draining. stoma is pink. patient NPO and sign above bed. aspiration precaution. head of bed is elevated. bed in lowest position and locked. call light within reach. will continue to monitor.
[2018-09-07] MEDS: Iron Sucrose 100 MG in NS 55 ML IV SCH (21:45)
--- NOTE | 2018-09-07 22:25 | General Progress Note ---
Assessment/Plan Problem List: (1) CRI (chronic renal insufficiency) ICD Codes: N18.9 - CRI (chronic renal insufficiency) SNOMED: 731846528 (2) diverting colostomy (3) Anemia ICD Codes: D64.9 - Anemia SNOMED: 525249419 (4) Renal failure ICD Codes: N19 - Unspecified kidney failure SNOMED: 83204826 Qualifiers: Qualified Codes: N17.9 - Acute kidney failure, unspecified; N18.3 - Chronic kidney disease, stage 3 (moderate) (5) Sepsis ICD Codes: A41.9 - Sepsis, unspecified organism SNOMED: 92622446 Qualifiers: Qualified Codes: A41.9 - Sepsis, unspecified organism (6) Pneumonia ICD Codes: J18.9 - Pneumonia, unspecified organism SNOMED: 735047948 Qualifiers: Qualified Codes: J18.9 - Pneumonia, unspecified organism (7) Hypoalbuminemia ICD Codes: E88.09 - Other disorders of plasma-protein metabolism, not elsewhere classified SNOMED: 906832934 (8) HTN (hypertension) ICD Codes: I10 - HTN (hypertension) SNOMED: 90787360 (9) Renal failure (ARF), acute on chronic ICD Codes: N17.9 - Acute kidney failure, unspecified; N18.9 - Chronic kidney disease, unspecified SNOMED: 816260854 Status: progressing, unchanged Assessment/Plan: npo pna is improving abx per id afebrile reviewd chrart and labs and meds Subjective ROS Limited/Unobtainable: Yes Allergies: Coded Allergies: No Known Allergies (Verified , 12/29/06) Objective Last 24 Hour Vital Signs Date Time Temp Pulse Resp B/P (MAP) Pulse Ox O2 Delivery O2 Flow Rate FiO2 09/07/18 17:38 90 130/62 09/07/18 16:00 98.9 85 19 147/68 (94) 95 09/07/18 16:00 86 09/07/18 12:08 83 118/64 09/07/18 12:00 82 09/07/18 12:00 97.5 83 17 118/64 (82) 95 09/07/18 08:30 Nasal Cannula 4.0 09/07/18 08:00 75 09/07/18 08:00 98.9 84 18 140/74 (96) 98 09/07/18 05:59 96 135/66 09/07/18 04:00 98.6 100 18 135/66 (89) 95 09/07/18 04:00 96 09/07/18 00:37 4.0 09/07/18 00:35 100 143/74 09/07/18 00:00 87 09/07/18 00:00 98.6 100 18 143/74 (97) 96 Intake and Output 09/06/18 09/07/18 18:59 06:59 Intake Total 30 ml Output Total 400 ml Balance -400 ml 30 ml Tube Feeding 30 ml Output Urine Total 400 ml # Voids 4 2 # Bowel Movements 1 1 Laboratory Tests 09/07/18 05:50: White Blood Count 18.4H, Red Blood Count 3.07L, Hemoglobin 8.5L, Hematocrit 27.6L, Mean Corpuscular Volume 90, Mean Corpuscular Hemoglobin 27.7, Mean Corpuscular Hemoglobin Concent 30.9L, Red Cell Distribution Width 16.4H, Platelet Count 242, Mean Platelet Volume 7.2, Neutrophils (%) (Auto) , Lymphocytes (%) (Auto) , Monocytes (%) (Auto) , Eosinophils (%) (Auto) , Basophils (%) (Auto) , Differential Total Cells Counted 100, Neutrophils % ( Manual) 86H, Lymphocytes % (Manual) 10L, Monocytes % (Manual) 4, Eosinophils % ( Manual) 0, Basophils % (Manual) 0, Band Neutrophils 0, Platelet Estimate Adequate, Platelet Morphology Normal, Anisocytosis 1+, Reticulocyte Count 0.4L, Prothrombin Time 11.6H, Prothromb Time International Ratio 1.1, Activated Partial Thromboplast Time 32, Sodium Level 146#H, Potassium Level 3.9, Chloride Level 110H, Carbon Dioxide Level 25, Anion Gap 11, Blood Urea Nitrogen 47H, Creatinine 2.5H, Estimat Glomerular Filtration Rate , Glucose Level 319#H, Hemoglobin A1c 6.0, Uric Acid 4.9, Calcium Level 9.0, Phosphorus Level 3.0, Magnesium Level 2.1, Iron Level 9L, Total Iron Binding Capacity 132L, Percent Iron Saturation 7L, Unsaturated Iron Binding 123, Ferritin 156, Total Bilirubin 0.2, Gamma Glutamyl Transpeptidase 9, Aspartate Amino Transf (AST/SGOT) 15, Alanine Aminotransferase (ALT/SGPT) 13, Alkaline Phosphatase 100, Troponin I 0.326H, C-Reactive Protein, Quantitative 40.4H, Pro-B-Type Natriuretic Peptide 6996H, Total Protein 6.7, Albumin 1.9L, Globulin 4.8, Albumin/Globulin Ratio 0.4L, Triglycerides Level 81, Cholesterol Level 70, LDL Cholesterol 33, HDL Cholesterol 26L, Cholesterol/HDL Ratio 2.7L, Vitamin B12 Level 617, Folate 13.8 , Thyroid Stimulating Hormone (TSH) 0.585, Free Thyroxine 1.10 Height (Feet): 6 Height (Inches): 0.00 Weight (Pounds): 190 Neck: supple Cardiovascular: normal rate Respiratory/Chest: lungs clear Rene Sin MD Sep 07, 2018 22:25
[2018-09-08] VITALS: BP 128/58
[2018-09-08] MEDS: dilTIAZem HCl 30mg tab GT SCH ×4 (00:25→17:32)
[2018-09-08 04:00] VITALS: BP 128/58
[2018-09-08] MEDS: NovoLOG Insulin Flexpen SUBQ SCH ×4 (06:20→23:34)
--- NOTE | 2018-09-08 07:15 | NUR ---
NURSE NOTES: patient received from ALDO Mejia. Patient denies pain at this time. patient awake and oriented x2. patient IV intact patent and asymptomatic. patient condom cath intact. Gtube intact and running Nephro at 30ml. no residual. Patient colostomy bag intact and draining. stoma is pink. patient NPO and sign above bed. aspiration precaution. head of bed is elevated. bed in lowest position and locked. call light within reach. will continue to monitor.
[2018-09-08 07:19] LABS: HEMATOCRIT 27.8 % (42.0-52.0); HEMOGLOBIN 8.3 G/DL (14.2-18.0); MEAN CORPUSCULAR VOLUME 89 FL (80-99); PLATELET COUNT 212 K/UL (150-450); RED BLOOD COUNT 3.12 M/UL (4.70-6.10); RED CELL DISTRIBUTION WIDTH 16.7 % (11.6-14.8); WHITE BLOOD COUNT 14.1 K/UL (4.8-10.8)
[2018-09-08 07:47] LABS: ALANINE AMINOTRANSFERASE 16 U/L (12-78); ALBUMIN 1.7 G/DL (3.4-5.0); ALBUMIN/GLOBULIN RATIO 0.3 (1.0-2.7); ALKALINE PHOSPHATASE 100 U/L (46-116); ANION GAP 9 mmol/L (5-15); ASPARTATE AMINO TRANSFERASE 16 U/L (15-37); BILIRUBIN,TOTAL 0.2 MG/DL (0.2-1.0); BLOOD UREA NITROGEN 37 mg/dL (7-18); CALCIUM 9.1 MG/DL (8.5-10.1); CARBON DIOXIDE 26 MMOL/L (21-32); CHLORIDE 109 MMOL/L (98-107); CREATININE 2.4 MG/DL (0.55-1.30); PHOSPHORUS 2.9 MG/DL (2.5-4.9); POTASSIUM 3.4 MMOL/L (3.5-5.1); SODIUM 144 MMOL/L (136-145)
[2018-09-08 08:00] VITALS: BP 128/49
[2018-09-08] MEDS: Piperacillin/Tazobactam 3.375 GM in NS 110 ML IVPB SCH ×2 (09:54→23:35)
[2018-09-08] MEDS: Tamsulosin 0.4mg cap ORAL SCH ×2 (09:55→17:32)
[2018-09-08] MEDS: Pantoprazole Inj IVP SCH ×2 (09:55→23:34)
--- NOTE | 2018-09-08 10:36 | GI Progress Note ---
Assessment/Plan Problems: (1) PEG (percutaneous endoscopic gastrostomy) status ICD Codes: Z93.1 - Gastrostomy status SNOMED: 200009987, 346125636 (2) S/P colostomy ICD Codes: Z93.3 - Colostomy status SNOMED: 34106413, 341145047, 033846326 (3) Sepsis ICD Codes: A41.9 - Sepsis, unspecified organism SNOMED: 30758475 Qualifiers: Qualified Codes: A41.9 - Sepsis, unspecified organism (4) GERD (gastroesophageal reflux disease) ICD Codes: K21.9 - GERD (gastroesophageal reflux disease) SNOMED: 621567878 (5) Anemia ICD Codes: D64.9 - Anemia SNOMED: 068878278 (6) Hypoalbuminemia ICD Codes: E88.09 - Other disorders of plasma-protein metabolism, not elsewhere classified SNOMED: 641263824 Status: stable Status Narrative Discussed with Dr. Ochoa Assessment/Plan Failed video swallow Supportive care at this time, GI procedures only if emergent GTFs per RD OB stool r/o GI bleed monitor H&H, prn transfusions bowel regimen ppi fu labs The patient was seen and examined at bedside and all new and available data was reviewed in the patients chart. I agree with the above findings, impression and plan. (Patient seen earlier today. Signature stamp does not reflect patient encounter time.). - Abner Ochoa MD Subjective Subjective Limited Objective Last 24 Hour Vital Signs Date Time Temp Pulse Resp B/P (MAP) Pulse Ox O2 Delivery O2 Flow Rate FiO2 09/08/18 08:00 100.0 76 20 128/49 (75) 95 09/08/18 07:30 69 09/08/18 06:19 81 128/58 09/08/18 04:00 79 09/08/18 04:00 98.1 81 18 128/58 (81) 96 09/08/18 00:25 84 154/69 09/08/18 00:00 98.3 88 18 128/58 (81) 96 09/08/18 00:00 78 09/07/18 21:00 4.0 09/07/18 21:00 Nasal Cannula 4.0 09/07/18 20:00 98.5 84 18 154/69 (97) 96 09/07/18 20:00 91 09/07/18 17:38 90 130/62 09/07/18 16:00 98.9 85 19 147/68 (94) 95 09/07/18 16:00 86 09/07/18 12:08 83 118/64 09/07/18 12:00 82 09/07/18 12:00 97.5 83 17 118/64 (82) 95 Intake and Output 09/07/18 09/08/18 19:00 07:00 Intake Total 440 ml Balance 440 ml Intake Free Water 200 ml Tube Feeding 240 ml # Voids 4 # Bowel Movements 1 1 Laboratory Tests Test 09/08/18 07:03 White Blood Count 14.1 K/UL (4.8-10.8) H Red Blood Count 3.12 M/UL (4.70-6.10) L Hemoglobin 8.3 G/DL (14.2-18.0) L Hematocrit 27.8 % (42.0-52.0) L Mean Corpuscular Volume 89 FL (80-99) Mean Corpuscular Hemoglobin 26.6 PG (27.0-31.0) L Mean Corpuscular Hemoglobin Concent 29.9 G/DL (32.0-36.0) L Red Cell Distribution Width 16.7 % (11.6-14.8) H Platelet Count 212 K/UL (150-450) Mean Platelet Volume 6.9 FL (6.5-10.1) Neutrophils (%) (Auto) % (45.0-75.0) Lymphocytes (%) (Auto) % (20.0-45.0) Monocytes (%) (Auto) % (1.0-10.0) Eosinophils (%) (Auto) % (0.0-3.0) Basophils (%) (Auto) % (0.0-2.0) Differential Total Cells Counted 100 Neutrophils % (Manual) 82 % (45-75) H Lymphocytes % (Manual) 10 % (20-45) L Monocytes % (Manual) 6 % (1-10) Eosinophils % (Manual) 2 % (0-3) Basophils % (Manual) 0 % (0-2) Band Neutrophils 0 % (0-8) Platelet Estimate Adequate Platelet Morphology Normal Hypochromasia 1+ Anisocytosis 1+ Sodium Level 144 MMOL/L (136-145) Potassium Level 3.4 MMOL/L (3.5-5.1) L Chloride Level 109 MMOL/L (98-107) H Carbon Dioxide Level 26 MMOL/L (21-32) Anion Gap 9 mmol/L (5-15) Blood Urea Nitrogen 37 mg/dL (7-18) H Creatinine 2.4 MG/DL (0.55-1.30) H Estimat Glomerular Filtration Rate mL/min (>60) Glucose Level 297 MG/DL (74-106) H Calcium Level 9.1 MG/DL (8.5-10.1) Phosphorus Level 2.9 MG/DL (2.5-4.9) Magnesium Level 2.0 MG/DL (1.8-2.4) Total Bilirubin 0.2 MG/DL (0.2-1.0) Aspartate Amino Transf (AST/SGOT) 16 U/L (15-37) Alanine Aminotransferase (ALT/SGPT) 16 U/L (12-78) Alkaline Phosphatase 100 U/L (46-116) Total Protein 6.7 G/DL (6.4-8.2) Albumin 1.7 G/DL (3.4-5.0) L Globulin 5.0 g/dL Albumin/Globulin Ratio 0.3 (1.0-2.7) L Height (Feet): 6 Height (Inches): 0.00 Weight (Pounds): 158 General Appearance: WD/WN, no apparent distress, alert Cardiovascular: normal rate Respiratory/Chest: normal breath sounds, no respiratory distress Abdominal Exam: normal bowel sounds, non tender, soft, GT site - Clean dry and intact Extremities: non-tender Meredith Avilez NP Sep 08, 2018 10:36
--- NOTE | 2018-09-08 11:17 | Infectious Diseases Prog Note ---
Assessment/Plan Assessment/Plan antibiotics : zosyn A 1. pneumonia 2. leucocytosis improving 3. renal failure improving 4. hypertension 5. dementia P 1. continue zosyn 2. will follow up cultures Subjective ROS Limited/Unobtainable: Yes Allergies: Coded Allergies: No Known Allergies (Verified , 12/29/06) Objective Vital Signs Last 24 Hour Vital Signs Date Time Temp Pulse Resp B/P (MAP) Pulse Ox O2 Delivery O2 Flow Rate FiO2 09/08/18 09:00 Nasal Cannula 4.0 09/08/18 08:00 100.0 76 20 128/49 (75) 95 09/08/18 07:30 69 09/08/18 06:19 81 128/58 09/08/18 04:00 79 09/08/18 04:00 98.1 81 18 128/58 (81) 96 09/08/18 00:25 84 154/69 09/08/18 00:00 98.3 88 18 128/58 (81) 96 09/08/18 00:00 78 09/07/18 21:00 4.0 09/07/18 21:00 Nasal Cannula 4.0 09/07/18 20:00 98.5 84 18 154/69 (97) 96 09/07/18 20:00 91 09/07/18 17:38 90 130/62 09/07/18 16:00 98.9 85 19 147/68 (94) 95 09/07/18 16:00 86 09/07/18 12:08 83 118/64 09/07/18 12:00 82 09/07/18 12:00 97.5 83 17 118/64 (82) 95 Height (Feet): 6 Height (Inches): 0.00 Weight (Pounds): 158 Respiratory/Chest: lungs clear Cardiovascular: normal rate, regular rhythm, no gallop/murmur Abdomen: soft, non tender, other - GT Extremities: no edema Microbiology Date/Time Source Procedure Growth Status 09/05/18 19:00 Blood Blood Culture - Preliminary NO GROWTH AFTER 48 HOURS Resulted 09/05/18 18:45 Blood Blood Culture - Preliminary NO GROWTH AFTER 48 HOURS Resulted 09/05/18 22:34 Nasal Nares MRSA Culture - Final NO METHICILLIN RESISTANT STAPH AUREUS... Complete 09/05/18 18:57 Urine,Clean Catch Urine Culture - Final NO GROWTH AFTER 48 HOURS Complete 09/05/18 23:34 Rectum - Final NO CARBAPENEM-RESISTANT ENTEROBACTERI... Complete 09/05/18 22:34 Rectum VRE Culture - Final Enterococcus Faecalis - Vre Complete Laboratory Tests Test 09/08/18 07:03 White Blood Count 14.1 K/UL (4.8-10.8) H Red Blood Count 3.12 M/UL (4.70-6.10) L Hemoglobin 8.3 G/DL (14.2-18.0) L Hematocrit 27.8 % (42.0-52.0) L Mean Corpuscular Volume 89 FL (80-99) Mean Corpuscular Hemoglobin 26.6 PG (27.0-31.0) L Mean Corpuscular Hemoglobin Concent 29.9 G/DL (32.0-36.0) L Red Cell Distribution Width 16.7 % (11.6-14.8) H Platelet Count 212 K/UL (150-450) Mean Platelet Volume 6.9 FL (6.5-10.1) Neutrophils (%) (Auto) % (45.0-75.0) Lymphocytes (%) (Auto) % (20.0-45.0) Monocytes (%) (Auto) % (1.0-10.0) Eosinophils (%) (Auto) % (0.0-3.0) Basophils (%) (Auto) % (0.0-2.0) Differential Total Cells Counted 100 Neutrophils % (Manual) 82 % (45-75) H Lymphocytes % (Manual) 10 % (20-45) L Monocytes % (Manual) 6 % (1-10) Eosinophils % (Manual) 2 % (0-3) Basophils % (Manual) 0 % (0-2) Band Neutrophils 0 % (0-8) Platelet Estimate Adequate Platelet Morphology Normal Hypochromasia 1+ Anisocytosis 1+ Sodium Level 144 MMOL/L (136-145) Potassium Level 3.4 MMOL/L (3.5-5.1) L Chloride Level 109 MMOL/L (98-107) H Carbon Dioxide Level 26 MMOL/L (21-32) Anion Gap 9 mmol/L (5-15) Blood Urea Nitrogen 37 mg/dL (7-18) H Creatinine 2.4 MG/DL (0.55-1.30) H Estimat Glomerular Filtration Rate mL/min (>60) Glucose Level 297 MG/DL (74-106) H Calcium Level 9.1 MG/DL (8.5-10.1) Phosphorus Level 2.9 MG/DL (2.5-4.9) Magnesium Level 2.0 MG/DL (1.8-2.4) Total Bilirubin 0.2 MG/DL (0.2-1.0) Aspartate Amino Transf (AST/SGOT) 16 U/L (15-37) Alanine Aminotransferase (ALT/SGPT) 16 U/L (12-78) Alkaline Phosphatase 100 U/L (46-116) Total Protein 6.7 G/DL (6.4-8.2) Albumin 1.7 G/DL (3.4-5.0) L Globulin 5.0 g/dL Albumin/Globulin Ratio 0.3 (1.0-2.7) L Current Medications Medications (Trade) Dose Ordered Sig/Jared Route PRN Reason Start Time Stop Time Status Last Admin Dose Admin Clonidine HCl (Catapres Tab) 0.1 mg Q4H PRN GT bp over 165 syst 09/06/18 12:00 10/06/18 11:59 Dextrose (Dextrose 50%) 25 ml Q30M PRN IV Hypoglycemia 09/06/18 00:00 10/06/18 00:00 Dextrose (Dextrose 50%) 50 ml Q30M PRN IV Hypoglycemia 09/06/18 00:00 10/06/18 00:00 Diltiazem HCl (Cardizem) 30 mg Q6HR GT 09/06/18 12:00 10/06/18 13:59 09/08/18 06:19 Insulin Aspart (NovoLOG) BEFORE MEALS AND HS SUBQ 09/06/18 06:30 10/06/18 06:29 09/08/18 06:20 Iron Sucrose 100 mg/Sodium Chloride 60 ml @ 240 mls/hr BEDTIME IV 09/07/18 21:00 09/09/18 21:14 09/07/18 21:45 Pantoprazole (Protonix) 40 mg EVERY 12 HOURS IVP 09/06/18 21:00 10/06/18 20:59 09/08/18 09:55 Piperacillin Sod/ Tazobactam Sod 3.375 gm/Sodium Chloride 110 ml @ 27.5 mls/hr EVERY 12 HOURS IVPB 09/06/18 11:30 09/11/18 11:29 09/08/18 09:54 Potassium Chloride 100 ml @ 100 mls/hr Q1HR IVPB 09/08/18 11:00 09/08/18 12:59 09/08/18 10:58 Sodium Chloride 1,000 ml @ 75 mls/hr [id number] IV 09/08/18 10:22 10/08/18 10:21 09/08/18 10:57 Tamsulosin HCl (Flomax) 0.4 mg BID ORAL 09/07/18 10:45 10/07/18 10:44 09/08/18 09:55 Eric Marina MD Sep 08, 2018 11:17
[2018-09-08 12:00] VITALS: BP 129/57
--- NOTE | 2018-09-08 12:55 | Hematology/Onc Progress Note ---
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 --> Hgb goal >7. Transfuse prn. --> Medications have been reviewed --> gi recs appreciated --> trend hgb 10-->8.5->8.3 # Leukocytosis/elevated white blood cell count, unspecified likely related to underlying stress reaction versus underlying infection/pna/sepsis --> have reviewed peripheral smear and bandemia/neutrophilia noted --> continue antibiotics if they have been started by ID team --> monitor for resolution --> trend 26k-->18k-->14.1 # R lateral nodule and possible chronic effusion. NSBGP, no obstruction. likely pna --> as er pulm eval # Elevated BUN and creatinine. --> nephro recs # Noncommunicative # Colostomy bag, gtube The timing of this note does not necessarily reflect the time of the patient was seen. Greatly appreciate consultation! Subjective Constitutional: Denies: no symptoms, chills, fever, malaise, weakness, other HEENT: Denies: no symptoms, eye pain, blurred vision, tearing, double vision, ear pain, ear discharge, nose pain, nose congestion, throat pain, throat swelling, mouth pain, mouth swelling, other Cardiovascular: Denies: no symptoms, chest pain, edema, irregular heart rate, lightheadedness, palpitations, syncope, other Respiratory: Denies: no symptoms, cough, shortness of breath, SOB with excertion, SOB at rest, sputum, wheezing, other Gastrointestinal/Abdominal: Denies: no symptoms, abdomen distended, abdominal pain, black stools, tarry stools, blood in stool, constipated, diarrhea, difficulty swallowing, nausea, poor appetite, poor fluid intake, rectal bleeding , vomiting, other Genitourinary: Denies: no symptoms, burning, discharge, frequency, flank pain, hematuria, incontinence, pain, urgency, other Neurologic/Psychiatric: Denies: no symptoms, anxiety, depressed, emotional problems, headache, numbness, paresthesia, pre-existing deficit, seizure, tingling, tremors, weakness, other Endocrine: Denies: no symptoms, excessive sweating, flushing, intolerance to cold, intolerance to heat, increased hunger, increased thirst, increased urine, unexplained weight gain, unexplained weight loss, other Hematologic/Lymphatic: Denies: no symptoms, anemia, easy bleeding, easy bruising, adenopathy, other Allergies: Coded Allergies: No Known Allergies (Verified , 12/29/06) Subjective 09/08: no events, no bleeding reported, no fevers, no chills Objective Objective Current Medications Medications (Trade) Dose Ordered Sig/Jared Route PRN Reason Start Time Stop Time Status Last Admin Dose Admin Clonidine HCl (Catapres Tab) 0.1 mg Q4H PRN GT bp over 165 syst 09/06/18 12:00 10/06/18 11:59 Dextrose (Dextrose 50%) 25 ml Q30M PRN IV Hypoglycemia 09/06/18 00:00 10/06/18 00:00 Dextrose (Dextrose 50%) 50 ml Q30M PRN IV Hypoglycemia 09/06/18 00:00 10/06/18 00:00 Diltiazem HCl (Cardizem) 30 mg Q6HR GT 09/06/18 12:00 10/06/18 13:59 09/08/18 11:59 Insulin Aspart (NovoLOG) BEFORE MEALS AND HS SUBQ 09/06/18 06:30 10/06/18 06:29 09/08/18 11:44 Iron Sucrose 100 mg/Sodium Chloride 60 ml @ 240 mls/hr BEDTIME IV 09/07/18 21:00 09/09/18 21:14 09/07/18 21:45 Pantoprazole (Protonix) 40 mg EVERY 12 HOURS IVP 09/06/18 21:00 10/06/18 20:59 09/08/18 09:55 Piperacillin Sod/ Tazobactam Sod 3.375 gm/Sodium Chloride 110 ml @ 27.5 mls/hr EVERY 12 HOURS IVPB 09/06/18 11:30 09/11/18 11:29 09/08/18 09:54 Potassium Chloride 100 ml @ 100 mls/hr Q1HR IVPB 09/08/18 11:00 09/08/18 12:59 09/08/18 11:59 Sodium Chloride 1,000 ml @ 75 mls/hr [id number] IV 09/08/18 10:22 10/08/18 10:21 09/08/18 10:57 Tamsulosin HCl (Flomax) 0.4 mg BID ORAL 09/07/18 10:45 10/07/18 10:44 09/08/18 09:55 Last 24 Hour Vital Signs Date Time Temp Pulse Resp B/P (MAP) Pulse Ox O2 Delivery O2 Flow Rate FiO2 09/08/18 12:00 98.5 79 18 129/57 (81) 96 09/08/18 11:59 76 128/49 09/08/18 09:00 Nasal Cannula 4.0 09/08/18 08:00 100.0 76 20 128/49 (75) 95 09/08/18 07:30 69 09/08/18 06:19 81 128/58 09/08/18 04:00 79 09/08/18 04:00 98.1 81 18 128/58 (81) 96 09/08/18 00:25 84 154/69 09/08/18 00:00 98.3 88 18 128/58 (81) 96 09/08/18 00:00 78 09/07/18 21:00 4.0 09/07/18 21:00 Nasal Cannula 4.0 09/07/18 20:00 98.5 84 18 154/69 (97) 96 09/07/18 20:00 91 09/07/18 17:38 90 130/62 09/07/18 16:00 98.9 85 19 147/68 (94) 95 09/07/18 16:00 86 09/07/18 12:08 83 118/64 09/07/18 12:00 82 09/07/18 12:00 97.5 83 17 118/64 (82) 95 09/07/18 08:30 Nasal Cannula 4.0 09/07/18 08:00 75 09/07/18 08:00 98.9 84 18 140/74 (96) 98 09/07/18 05:59 96 135/66 09/07/18 04:00 98.6 100 18 135/66 (89) 95 09/07/18 04:00 96 09/07/18 00:37 4.0 09/07/18 00:35 100 143/74 09/07/18 00:00 87 09/07/18 00:00 98.6 100 18 143/74 (97) 96 09/06/18 21:00 Nasal Cannula 4.0 09/06/18 20:00 96 09/06/18 20:00 98.7 100 16 128/78 (95) 96 09/06/18 18:56 82 144/74 09/06/18 16:00 98.6 100 20 144/74 (97) 96 09/06/18 15:40 98 Intake and Output 09/07/18 09/08/18 19:00 07:00 Intake Total 440 ml Balance 440 ml Intake Free Water 200 ml Tube Feeding 240 ml # Voids 4 # Bowel Movements 1 1 Labs Test 09/05/18 18:45 09/05/18 18:57 09/05/18 20:15 09/06/18 06:20 White Blood Count 11.7 K/UL (4.8-10.8) 26.6 K/UL (4.8-10.8) Red Blood Count 3.64 M/UL (4.70-6.10) 3.70 M/UL (4.70-6.10) Hemoglobin 9.9 G/DL (14.2-18.0) 10.0 G/DL (14.2-18.0) Hematocrit 32.9 % (42.0-52.0) 33.7 % (42.0-52.0) Mean Corpuscular Volume 90 FL (80-99) 91 FL (80-99) Mean Corpuscular Hemoglobin 27.3 PG (27.0-31.0) 27.1 PG (27.0-31.0) Mean Corpuscular Hemoglobin Concent 30.2 G/DL (32.0-36.0) 29.8 G/DL (32.0-36.0) Red Cell Distribution Width 16.1 % (11.6-14.8) 16.7 % (11.6-14.8) Platelet Count 319 K/UL (150-450) 289 K/UL (150-450) Mean Platelet Volume 6.9 FL (6.5-10.1) 7.2 FL (6.5-10.1) Neutrophils (%) (Auto) 78.2 % (45.0-75.0) % (45.0-75.0) Lymphocytes (%) (Auto) 15.0 % (20.0-45.0) % (20.0-45.0) Monocytes (%) (Auto) 4.2 % (1.0-10.0) % (1.0-10.0) Eosinophils (%) (Auto) 1.8 % (0.0-3.0) % (0.0-3.0) Basophils (%) (Auto) 0.7 % (0.0-2.0) % (0.0-2.0) Prothrombin Time 10.3 SEC (9.30-11.50) Prothromb Time International Ratio 1.0 (0.9-1.1) Activated Partial Thromboplast Time 28 SEC (23-33) Sodium Level 151 MMOL/L (136-145) 157 MMOL/L (136-145) Potassium Level 4.4 MMOL/L (3.5-5.1) 5.4 MMOL/L (3.5-5.1) Chloride Level 114 MMOL/L (98-107) 122 MMOL/L (98-107) Carbon Dioxide Level 24 MMOL/L (21-32) 21 MMOL/L (21-32) Anion Gap 13 mmol/L (5-15) 14 mmol/L (5-15) Blood Urea Nitrogen 61 mg/dL (7-18) 55 mg/dL (7-18) Creatinine 2.5 MG/DL (0.55-1.30) 2.6 MG/DL (0.55-1.30) Estimat Glomerular Filtration Rate mL/min (>60) mL/min (>60) Glucose Level 154 MG/DL (74-106) 133 MG/DL (74-106) Lactic Acid Level 2.90 mmol/L (0.4-2.0) 1.50 mmol/L (0.66-2.22) Calcium Level 9.4 MG/DL (8.5-10.1) 9.6 MG/DL (8.5-10.1) Total Bilirubin 0.1 MG/DL (0.2-1.0) 0.2 MG/DL (0.2-1.0) Aspartate Amino Transf (AST/SGOT) 23 U/L (15-37) 17 U/L (15-37) Alanine Aminotransferase (ALT/SGPT) 20 U/L (12-78) 15 U/L (12-78) Alkaline Phosphatase 113 U/L (46-116) 100 U/L (46-116) Total Creatine Kinase 41 U/L (26-308) Troponin I 0.000 ng/mL (0.000-0.056) Pro-B-Type Natriuretic Peptide 2457 pg/mL (0-125) Total Protein 7.8 G/DL (6.4-8.2) 7.5 G/DL (6.4-8.2) Albumin 2.6 G/DL (3.4-5.0) 2.2 G/DL (3.4-5.0) Globulin 5.2 g/dL 5.3 g/dL Albumin/Globulin Ratio 0.5 (1.0-2.7) 0.4 (1.0-2.7) Lipase 113 U/L (73-393) Urine Color Pale yellow Urine Appearance Slightly cloudy Urine pH 5 (4.5-8.0) Urine Specific [place] 1.015 (1.005-1.035) Urine Protein 3+ (NEGATIVE) Urine Glucose (UA) Negative (NEGATIVE) Urine Ketones Negative (NEGATIVE) Urine Blood 3+ (NEGATIVE) Urine Nitrite Negative (NEGATIVE) Urine Bilirubin Negative (NEGATIVE) Urine Urobilinogen Normal MG/DL (0.0-1.0) Urine Leukocyte Esterase Negative (NEGATIVE) Urine RBC 10-15 /HPF (0 - 0) Urine WBC 0-2 /HPF (0 - 0) Urine Squamous Epithelial Cells Occasional /LPF Urine Amorphous Sediment Many /LPF (NONE) Urine Bacteria Moderate /HPF (NONE) Differential Total Cells Counted 100 Neutrophils % (Manual) 95 % (45-75) Lymphocytes % (Manual) 3 % (20-45) Monocytes % (Manual) 2 % (1-10) Eosinophils % (Manual) 0 % (0-3) Basophils % (Manual) 0 % (0-2) Band Neutrophils 0 % (0-8) Other Cell Type Pathologist review Platelet Estimate Adequate Platelet Morphology Normal Hypochromasia 1+ Anisocytosis 1+ Test 09/07/18 05:50 09/08/18 07:03 White Blood Count 18.4 K/UL (4.8-10.8) 14.1 K/UL (4.8-10.8) Red Blood Count 3.07 M/UL (4.70-6.10) 3.12 M/UL (4.70-6.10) Hemoglobin 8.5 G/DL (14.2-18.0) 8.3 G/DL (14.2-18.0) Hematocrit 27.6 % (42.0-52.0) 27.8 % (42.0-52.0) Mean Corpuscular Volume 90 FL (80-99) 89 FL (80-99) Mean Corpuscular Hemoglobin 27.7 PG (27.0-31.0) 26.6 PG (27.0-31.0) Mean Corpuscular Hemoglobin Concent 30.9 G/DL (32.0-36.0) 29.9 G/DL (32.0-36.0) Red Cell Distribution Width 16.4 % (11.6-14.8) 16.7 % (11.6-14.8) Platelet Count 242 K/UL (150-450) 212 K/UL (150-450) Mean Platelet Volume 7.2 FL (6.5-10.1) 6.9 FL (6.5-10.1) Neutrophils (%) (Auto) % (45.0-75.0) % (45.0-75.0) Lymphocytes (%) (Auto) % (20.0-45.0) % (20.0-45.0) Monocytes (%) (Auto) % (1.0-10.0) % (1.0-10.0) Eosinophils (%) (Auto) % (0.0-3.0) % (0.0-3.0) Basophils (%) (Auto) % (0.0-2.0) % (0.0-2.0) Differential Total Cells Counted 100 100 Neutrophils % (Manual) 86 % (45-75) 82 % (45-75) Lymphocytes % (Manual) 10 % (20-45) 10 % (20-45) Monocytes % (Manual) 4 % (1-10) 6 % (1-10) Eosinophils % (Manual) 0 % (0-3) 2 % (0-3) Basophils % (Manual) 0 % (0-2) 0 % (0-2) Band Neutrophils 0 % (0-8) 0 % (0-8) Platelet Estimate Adequate Adequate Platelet Morphology Normal Normal Anisocytosis 1+ 1+ Reticulocyte Count 0.4 % (0.5-2.0) Prothrombin Time 11.6 SEC (9.30-11.50) Prothromb Time International Ratio 1.1 (0.9-1.1) Activated Partial Thromboplast Time 32 SEC (23-33) Sodium Level 146 MMOL/L (136-145) 144 MMOL/L (136-145) Potassium Level 3.9 MMOL/L (3.5-5.1) 3.4 MMOL/L (3.5-5.1) Chloride Level 110 MMOL/L (98-107) 109 MMOL/L (98-107) Carbon Dioxide Level 25 MMOL/L (21-32) 26 MMOL/L (21-32) Anion Gap 11 mmol/L (5-15) 9 mmol/L (5-15) Blood Urea Nitrogen 47 mg/dL (7-18) 37 mg/dL (7-18) Creatinine 2.5 MG/DL (0.55-1.30) 2.4 MG/DL (0.55-1.30) Estimat Glomerular Filtration Rate mL/min (>60) mL/min (>60) Glucose Level 319 MG/DL (74-106) 297 MG/DL (74-106) Hemoglobin A1c 6.0 % (4.3-6.0) Uric Acid 4.9 MG/DL (2.6-7.2) Calcium Level 9.0 MG/DL (8.5-10.1) 9.1 MG/DL (8.5-10.1) Phosphorus Level 3.0 MG/DL (2.5-4.9) 2.9 MG/DL (2.5-4.9) Magnesium Level 2.1 MG/DL (1.8-2.4) 2.0 MG/DL (1.8-2.4) Iron Level 9 ug/dL (50-175) Total Iron Binding Capacity 132 ug/dL (250-450) Percent Iron Saturation 7 % (15-50) Unsaturated Iron Binding 123 ug/dL (112-346) Ferritin 156 NG/ML (8-388) Total Bilirubin 0.2 MG/DL (0.2-1.0) 0.2 MG/DL (0.2-1.0) Gamma Glutamyl Transpeptidase 9 U/L (5-85) Aspartate Amino Transf (AST/SGOT) 15 U/L (15-37) 16 U/L (15-37) Alanine Aminotransferase (ALT/SGPT) 13 U/L (12-78) 16 U/L (12-78) Alkaline Phosphatase 100 U/L (46-116) 100 U/L (46-116) Troponin I 0.326 ng/mL (0.000-0.056) C-Reactive Protein, Quantitative 40.4 mg/dL (0.00-0.90) Pro-B-Type Natriuretic Peptide 6996 pg/mL (0-125) Total Protein 6.7 G/DL (6.4-8.2) 6.7 G/DL (6.4-8.2) Albumin 1.9 G/DL (3.4-5.0) 1.7 G/DL (3.4-5.0) Globulin 4.8 g/dL 5.0 g/dL Albumin/Globulin Ratio 0.4 (1.0-2.7) 0.3 (1.0-2.7) Triglycerides Level 81 MG/DL (30-150) Cholesterol Level 70 MG/DL (< 200) LDL Cholesterol 33 mg/dL (<100) HDL Cholesterol 26 MG/DL (40-60) Cholesterol/HDL Ratio 2.7 (3.3-4.4) Vitamin B12 Level 617 PG/ML (193-986) Folate 13.8 NG/ML (8.6-58.9) Thyroid Stimulating Hormone (TSH) 0.585 uiU/mL (0.358-3.740) Free Thyroxine 1.10 NG/DL (0.76-1.46) Hypochromasia 1+ Height (Feet): 6 Height (Inches): 0.00 Weight (Pounds): 158 Objective PE Vitals: reviewed, normal Gen: no apparent distress, alert, thin, Chronically Ill Neck: supple Respiratory: rhonchi CV: regular rate, rhythm, no edema GI: soft, no mass, non-distended, other - g tube/colostomy Gu: normal inspection Skin: normal inspection, warm/dry KleynbergSohail Lavonne MD Sep 08, 2018 12:55
--- NOTE | 2018-09-08 15:26 | Nephrology Progress Note ---
Assessment/Plan Problem List: (1) Renal failure (ARF), acute on chronic (2) HTN (hypertension) (3) DM (diabetes mellitus) (4) Pneumonia (5) Hypoalbuminemia (6) Hypernatremia (7) S/P colostomy (8) PEG (percutaneous endoscopic gastrostomy) status Assessment (1) Renal failure- acute on chronic- (2) Anemia (3) HTN (hypertension) (4) Pneumoia / Sepsis (5) DM / Proteinuria (6) Dementia (7) HyperNatremia: Dehydration, free water deficit (8) Colostomy and PEG status Plan Hydrate- D5w Anemia kenyon Kayexelate as needed monitor renal parameters avoid nephrotoxics Subjective ROS Limited/Unobtainable: Yes Objective Objective Last 24 Hour Vital Signs Date Time Temp Pulse Resp B/P (MAP) Pulse Ox O2 Delivery O2 Flow Rate FiO2 09/08/18 12:00 98.5 79 18 129/57 (81) 96 09/08/18 11:59 76 128/49 09/08/18 11:38 72 09/08/18 09:00 Nasal Cannula 4.0 09/08/18 08:00 100.0 76 20 128/49 (75) 95 09/08/18 07:30 69 09/08/18 06:19 81 128/58 09/08/18 04:00 79 09/08/18 04:00 98.1 81 18 128/58 (81) 96 09/08/18 00:25 84 154/69 09/08/18 00:00 98.3 88 18 128/58 (81) 96 09/08/18 00:00 78 09/07/18 21:00 4.0 09/07/18 21:00 Nasal Cannula 4.0 09/07/18 20:00 98.5 84 18 154/69 (97) 96 09/07/18 20:00 91 09/07/18 17:38 90 130/62 09/07/18 16:00 98.9 85 19 147/68 (94) 95 09/07/18 16:00 86 Intake and Output 09/07/18 09/08/18 19:00 07:00 Intake Total 440 ml Balance 440 ml Intake Free Water 200 ml Tube Feeding 240 ml # Voids 4 # Bowel Movements 1 1 Laboratory Tests 09/08/18 07:03: White Blood Count 14.1H, Red Blood Count 3.12L, Hemoglobin 8.3L, Hematocrit 27.8L, Mean Corpuscular Volume 89, Mean Corpuscular Hemoglobin 26.6L, Mean Corpuscular Hemoglobin Concent 29.9L, Red Cell Distribution Width 16.7H, Platelet Count 212, Mean Platelet Volume 6.9, Neutrophils (%) (Auto) , Lymphocytes (%) (Auto) , Monocytes (%) (Auto) , Eosinophils (%) (Auto) , Basophils (%) (Auto) , Differential Total Cells Counted 100, Neutrophils % ( Manual) 82H, Lymphocytes % (Manual) 10L, Monocytes % (Manual) 6, Eosinophils % ( Manual) 2, Basophils % (Manual) 0, Band Neutrophils 0, Platelet Estimate Adequate, Platelet Morphology Normal, Hypochromasia 1+, Anisocytosis 1+, Sodium Level 144, Potassium Level 3.4L, Chloride Level 109H, Carbon Dioxide Level 26, Anion Gap 9, Blood Urea Nitrogen 37H, Creatinine 2.4H, Estimat Glomerular Filtration Rate , Glucose Level 297H, Calcium Level 9.1, Phosphorus Level 2.9, Magnesium Level 2.0, Total Bilirubin 0.2, Aspartate Amino Transf (AST/SGOT) 16, Alanine Aminotransferase (ALT/SGPT) 16, Alkaline Phosphatase 100, Total Protein 6.7, Albumin 1.7L, Globulin 5.0, Albumin/Globulin Ratio 0.3L Height (Feet): 6 Height (Inches): 0.00 Weight (Pounds): 158 General Appearance: no apparent distress Neck: limited range of motion Cardiovascular: normal rate Respiratory/Chest: decreased breath sounds Abdomen: soft Gregorio Hoyos MD Sep 08, 2018 15:26
[2018-09-08] MEDS ORDERED: 1/2 NS 1000ml IV ONE (15:29)
[2018-09-08] MEDS ORDERED: Tubing IV Secondary IV ONE (15:29)
--- NOTE | 2018-09-08 15:45 | NUR ---
NURSE NOTES: At hourly round, found patient with both hands on gtube. The made attempt to remove it. Reorientate the patient. In two minutes patient removed his gown, monitor, and had both hands on the gtube for removal. Contacted Dr. Roe and orders were entered.
[2018-09-08 16:00] VITALS: BP 134/57
--- NOTE | 2018-09-08 17:15 | NUR ---
NURSE NOTES: @1645: Contacted SULLY Avilez about patient attempts to remove g-tube. Noted bleeding around g-tube site, redness around g-tube site, and LLQ swelling. Received order to stop feeding and order for abd x-ray for placement of g-tube. @17:15: unable to completed xray-abd. G-tube is unable to flush or aspirate. Awaiting call back from SULLY Rodriguez.
--- NOTE | 2018-09-08 18:15 | NUR ---
NURSE NOTES: Unclogged G-tube. Had test KUB XRAY for peg placement completed. Awaiting results from radiology. SULLY Avilez was made aware.
--- NOTE | 2018-09-08 18:41 | Diagnostic Imaging Report ---
APPROVED REPORT CPT Code: 90506 Present Symptoms Comments: BILATERAL LEGS PAIN. BILATERAL: Imaging reveals a patent deep venous system bilaterally. There is no evidence of thrombus within the femoral, popliteal or tibial segments. The greater saphenous veins are also within normal limits. Doppler indicates normal spontaneous flow within these segments.
--- NOTE | 2018-09-08 19:45 | NUR ---
HAND-OFF: Report given to ALDO Perdomo. Patient is on bilateral restraints. REmoved condom catheter and NC. Repositioned patient. Feeding on hold til KUB results. IV on right arm intact and patent. Still noted bleeding around g-tube. Endorsed to follow up with KUB results for peg placement and to notify SULLY Avilez of the results.
[2018-09-08 20:00] VITALS: BP 134/79
--- NOTE | 2018-09-08 20:00 | NUR ---
NURSE NOTES: Received report from ALDO Sanchez. Patient in bed restrained, but still managed to remove condom cath. Verbal response is incomprehensible, but pt able to follow simple commands. No signs of pain or distress at this time. Noted on NC at 4l. Heart rate 103 on monitor. Will continue to monitor.
--- NOTE | 2018-09-08 21:00 | NUR ---
NURSE NOTES: Awaiting for x-ray to confirm tube placement, so feeding can resume. Will continue to monitor.
--- NOTE | 2018-09-08 22:14 | General Progress Note ---
Assessment/Plan Problem List: (1) CRI (chronic renal insufficiency) ICD Codes: N18.9 - CRI (chronic renal insufficiency) SNOMED: 981410995 (2) diverting colostomy (3) Anemia ICD Codes: D64.9 - Anemia SNOMED: 977093699 (4) Renal failure ICD Codes: N19 - Unspecified kidney failure SNOMED: 85122741 Qualifiers: Qualified Codes: N17.9 - Acute kidney failure, unspecified; N18.3 - Chronic kidney disease, stage 3 (moderate) (5) Sepsis ICD Codes: A41.9 - Sepsis, unspecified organism SNOMED: 80477967 Qualifiers: Qualified Codes: A41.9 - Sepsis, unspecified organism (6) Pneumonia ICD Codes: J18.9 - Pneumonia, unspecified organism SNOMED: 907100604 Qualifiers: Qualified Codes: J18.9 - Pneumonia, unspecified organism (7) Hypoalbuminemia ICD Codes: E88.09 - Other disorders of plasma-protein metabolism, not elsewhere classified SNOMED: 621091414 (8) HTN (hypertension) ICD Codes: I10 - HTN (hypertension) SNOMED: 10010155 (9) Renal failure (ARF), acute on chronic ICD Codes: N17.9 - Acute kidney failure, unspecified; N18.9 - Chronic kidney disease, unspecified SNOMED: 854981391 Status: stable Assessment/Plan: pna improving dc planning afebrile peg no wheezing cri niddm elevated sugar Subjective ROS Limited/Unobtainable: Yes Allergies: Coded Allergies: No Known Allergies (Verified , 12/29/06) Objective Last 24 Hour Vital Signs Date Time Temp Pulse Resp B/P (MAP) Pulse Ox O2 Delivery O2 Flow Rate FiO2 09/08/18 16:00 98.9 83 20 134/57 (82) 95 09/08/18 15:10 97 09/08/18 12:00 98.5 79 18 129/57 (81) 96 09/08/18 11:59 76 128/49 09/08/18 11:38 72 09/08/18 09:00 Nasal Cannula 4.0 09/08/18 08:00 100.0 76 20 128/49 (75) 95 09/08/18 07:30 69 09/08/18 06:19 81 128/58 09/08/18 04:00 79 09/08/18 04:00 98.1 81 18 128/58 (81) 96 09/08/18 00:25 84 154/69 09/08/18 00:00 98.3 88 18 128/58 (81) 96 09/08/18 00:00 78 Intake and Output 09/07/18 09/08/18 18:59 06:59 Intake Total 470 ml Balance 470 ml Intake Free Water 200 ml Tube Feeding 270 ml # Voids 4 # Bowel Movements 1 1 Laboratory Tests 09/08/18 07:03: White Blood Count 14.1H, Red Blood Count 3.12L, Hemoglobin 8.3L, Hematocrit 27.8L, Mean Corpuscular Volume 89, Mean Corpuscular Hemoglobin 26.6L, Mean Corpuscular Hemoglobin Concent 29.9L, Red Cell Distribution Width 16.7H, Platelet Count 212, Mean Platelet Volume 6.9, Neutrophils (%) (Auto) , Lymphocytes (%) (Auto) , Monocytes (%) (Auto) , Eosinophils (%) (Auto) , Basophils (%) (Auto) , Differential Total Cells Counted 100, Neutrophils % ( Manual) 82H, Lymphocytes % (Manual) 10L, Monocytes % (Manual) 6, Eosinophils % ( Manual) 2, Basophils % (Manual) 0, Band Neutrophils 0, Platelet Estimate Adequate, Platelet Morphology Normal, Hypochromasia 1+, Anisocytosis 1+, Sodium Level 144, Potassium Level 3.4L, Chloride Level 109H, Carbon Dioxide Level 26, Anion Gap 9, Blood Urea Nitrogen 37H, Creatinine 2.4H, Estimat Glomerular Filtration Rate , Glucose Level 297H, Calcium Level 9.1, Phosphorus Level 2.9, Magnesium Level 2.0, Total Bilirubin 0.2, Aspartate Amino Transf (AST/SGOT) 16, Alanine Aminotransferase (ALT/SGPT) 16, Alkaline Phosphatase 100, Total Protein 6.7, Albumin 1.7L, Globulin 5.0, Albumin/Globulin Ratio 0.3L Height (Feet): 6 Height (Inches): 0.00 Weight (Pounds): 158 Cardiovascular: normal rate Respiratory/Chest: lungs clear Abdomen: soft Rene Sin MD Sep 08, 2018 22:14
[2018-09-08] MEDS: Iron Sucrose 100 MG in NS 55 ML IV SCH (23:35)
[2018-09-09] VITALS: BP 121/76
--- NOTE | 2018-09-09 01:15 | Consultation ---
DATE OF CONSULTATION: 09/08/2018 CONSULTING PHYSICIAN: Ce Reid M.D. HISTORY OF PRESENT ILLNESS: The patient is an 82-year-old male with a history of gastric ulcer, colostomy, GERD, anemia, diabetes, renal failure who has been admitted to the hospital for leukocytosis. The patient became severely agitated and attempted to pull out his G-tube. The patient is not redirectable, confused, and is a poor historian. Presents with disorganized speech and behavior. PAST PSYCHIATRIC HISTORY: Significant for dementia. PAST MEDICAL HISTORY: 1. Renal failure. 2. CVA. 3. Hypertension. 4. Diabetes. 5. Anemia. 6. GERD. 7. Colostomy. 8. Gastric ulcer. 9. Failure to thrive, status post G-tube placement. 10. GI bleeding. ALLERGIES: No known drug allergies. SUBSTANCE ABUSE HISTORY: No history of illicit drug use or alcohol. MENTAL STATUS EXAMINATION: The patient is alert, confused, disoriented. Mood is agitated. Affect is flat. Thought process, there is a paucity of thought content. Thought content, no suicidal or homicidal ideation. Memory, concentration, and attention is impaired. Insight and judgment non-existent. ASSESSMENT: [place] I Dementia with behavior disturbance. [place] II Deferred. [place] III As above. [place] IV Low. [place] V 10. PLAN: 1. The patient was placed on bilateral soft restraints. 2. The patient was started on Seroquel p.r.n. 3. We will continue to readjust the medications. The patient was seen with ALDO Sanchez present in the room. Ce Reid M.D. DR: ANETTE JOB#: [id number] CC:
[2018-09-09 04:00] VITALS: BP 129/56
[2018-09-09] MEDS: NovoLOG Insulin Flexpen SUBQ SCH ×2 (06:01→11:35)
[2018-09-09] MEDS: dilTIAZem HCl 30mg tab GT SCH ×3 (06:01→11:37)
[2018-09-09 07:18] LABS: BASOPHILS % (AUTO) 0.8 % (0.0-2.0); EOSINOPHILS % (AUTO) 2.6 % (0.0-3.0); HEMATOCRIT 29.2 % (42.0-52.0); HEMOGLOBIN 8.9 G/DL (14.2-18.0); LYMPHOCYTES % (AUTO) 7.4 % (20.0-45.0); MEAN CORPUSCULAR VOLUME 88 FL (80-99); NEUTROPHILS % (AUTO) 82.2 % (45.0-75.0); PLATELET COUNT 234 K/UL (150-450); RED BLOOD COUNT 3.31 M/UL (4.70-6.10); RED CELL DISTRIBUTION WIDTH 16.5 % (11.6-14.8); WHITE BLOOD COUNT 11.9 K/UL (4.8-10.8)
--- NOTE | 2018-09-09 07:23 | NUR ---
HAND-OFF: Report given to ALDO Mukherjee. Patient in bed sleeping, GT tube feeding restarted. Patient stable at hand-off.
[2018-09-09 07:46] LABS: ANION GAP 12 mmol/L (5-15); BLOOD UREA NITROGEN 33 mg/dL (7-18); CALCIUM 9.3 MG/DL (8.5-10.1); CARBON DIOXIDE 24 MMOL/L (21-32); CHLORIDE 108 MMOL/L (98-107); CREATININE 2.4 MG/DL (0.55-1.30); POTASSIUM 3.4 MMOL/L (3.5-5.1); SODIUM 144 MMOL/L (136-145)
--- NOTE | 2018-09-09 07:54 | NUR ---
NURSE NOTES: Received report from ALDO Perdomo. pt in bed asleep, no apparent distress noted, bed in lowest position, call light within reach, G-tube feeds restarted by ALDO Perdomo according to order. Bilateral soft wrist restraints checked, pulses 2+ bilaterally, skin warm to touch, cap refill <3 sec.
[2018-09-09 07:58] LABS: ALANINE AMINOTRANSFERASE 24 U/L (12-78); ALBUMIN 1.9 G/DL (3.4-5.0); ALKALINE PHOSPHATASE 113 U/L (46-116); ASPARTATE AMINO TRANSFERASE 29 U/L (15-37); BILIRUBIN,DIRECT 0.1 MG/DL (0.0-0.3); BILIRUBIN,TOTAL 0.3 MG/DL (0.2-1.0); PHOSPHORUS 2.6 MG/DL (2.5-4.9)
[2018-09-09 08:00] VITALS: BP 116/61
[2018-09-09] MEDS: Pantoprazole Inj IVP SCH (09:13)
[2018-09-09] MEDS: Piperacillin/Tazobactam 3.375 GM in NS 110 ML IVPB SCH (09:13)
[2018-09-09] MEDS: Tamsulosin 0.4mg cap ORAL SCH (09:13)
--- NOTE | 2018-09-09 09:31 | Hematology/Onc Progress Note ---
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 Transfuse prn. --> Medications have been reviewed --> gi recs appreciated --> trend hgb 10-->8.5->8.3 # Leukocytosis/elevated white blood cell count, unspecified likely related to underlying stress reaction versus underlying infection/pna/sepsis --> have reviewed peripheral smear and bandemia/neutrophilia noted --> continue antibiotics if they have been started by ID team --> monitor for resolution --> trend 26k-->18k-->14.1 # R lateral nodule and possible chronic effusion. NSBGP, no obstruction. likely pna --> as er pulm eval # Elevated BUN and creatinine --> nephro recs --> cr better # Noncommunicative # Colostomy bag, gtube # Agitation on soft wrist restraints The timing of this note does not necessarily reflect the time of the patient was seen. Greatly appreciate consultation! Subjective Constitutional: Denies: no symptoms, chills, fever, malaise, weakness, other HEENT: Denies: no symptoms, eye pain, blurred vision, tearing, double vision, ear pain, ear discharge, nose pain, nose congestion, throat pain, throat swelling, mouth pain, mouth swelling, other Cardiovascular: Denies: no symptoms, chest pain, edema, irregular heart rate, lightheadedness, palpitations, syncope, other Respiratory: Denies: no symptoms, cough, shortness of breath, SOB with excertion, SOB at rest, sputum, wheezing, other Gastrointestinal/Abdominal: Denies: no symptoms, abdomen distended, abdominal pain, black stools, tarry stools, blood in stool, constipated, diarrhea, difficulty swallowing, nausea, poor appetite, poor fluid intake, rectal bleeding , vomiting, other Genitourinary: Denies: no symptoms, burning, discharge, frequency, flank pain, hematuria, incontinence, pain, urgency, other Neurologic/Psychiatric: Denies: no symptoms, anxiety, depressed, emotional problems, headache, numbness, paresthesia, pre-existing deficit, seizure, tingling, tremors, weakness, other Endocrine: Denies: no symptoms, excessive sweating, flushing, intolerance to cold, intolerance to heat, increased hunger, increased thirst, increased urine, unexplained weight gain, unexplained weight loss, other Hematologic/Lymphatic: Denies: no symptoms, anemia, easy bleeding, easy bruising, adenopathy, other Allergies: Coded Allergies: No Known Allergies (Verified , 12/29/06) Subjective 09/08: no events, no bleeding reported, no fevers, no chills 09/09: no events, no f/c, no bleeding, soft wrist restraints Objective Objective Current Medications Medications (Trade) Dose Ordered Sig/Jared Route PRN Reason Start Time Stop Time Status Last Admin Dose Admin Clonidine HCl (Catapres Tab) 0.1 mg Q4H PRN GT bp over 165 syst 09/06/18 12:00 10/06/18 11:59 Dextrose (Dextrose 50%) 25 ml Q30M PRN IV Hypoglycemia 09/06/18 00:00 10/06/18 00:00 Dextrose (Dextrose 50%) 50 ml Q30M PRN IV Hypoglycemia 09/06/18 00:00 10/06/18 00:00 Diltiazem HCl (Cardizem) 30 mg Q6HR GT 09/06/18 12:00 10/06/18 13:59 09/09/18 06:01 Insulin Aspart (NovoLOG) BEFORE MEALS AND HS SUBQ 09/06/18 06:30 10/06/18 06:29 09/09/18 06:01 Iron Sucrose 100 mg/Sodium Chloride 60 ml @ 240 mls/hr BEDTIME IV 09/07/18 21:00 09/09/18 21:14 09/08/18 23:35 Pantoprazole (Protonix) 40 mg EVERY 12 HOURS IVP 09/06/18 21:00 10/06/18 20:59 09/09/18 09:13 Piperacillin Sod/ Tazobactam Sod 3.375 gm/Sodium Chloride 110 ml @ 27.5 mls/hr EVERY 12 HOURS IVPB 09/06/18 11:30 09/11/18 11:29 09/09/18 09:13 Potassium Chloride 100 ml @ 100 mls/hr Q1HR IVPB 09/09/18 09:00 09/09/18 10:59 09/09/18 09:13 Quetiapine Fumarate (SEROquel) 25 mg TID ORAL 09/08/18 16:00 10/08/18 15:59 09/09/18 09:13 Quetiapine Fumarate (SEROquel) 50 mg Q12H PRN ORAL agitation 09/08/18 16:00 10/08/18 15:59 Sodium Chloride 1,000 ml @ 75 mls/hr [id number] IV 09/08/18 10:22 10/08/18 10:21 09/08/18 23:42 Tamsulosin HCl (Flomax) 0.4 mg BID ORAL 09/07/18 10:45 10/07/18 10:44 09/09/18 09:13 Last 24 Hour Vital Signs Date Time Temp Pulse Resp B/P (MAP) Pulse Ox O2 Delivery O2 Flow Rate FiO2 09/09/18 08:00 97.3 76 20 116/61 (79) 95 09/09/18 06:01 91 129/56 09/09/18 04:00 97.6 87 24 129/56 (80) 93 09/09/18 04:00 91 09/09/18 00:00 98.6 103 24 121/76 (91) 94 09/09/18 00:00 96 09/09/18 00:00 96 121/76 09/08/18 21:54 95 18 96 Nasal Cannula 4.0 36 09/08/18 21:54 96 Nasal Cannula 4.0 36 09/08/18 21:00 Nasal Cannula 4.0 09/08/18 20:00 99.1 96 24 134/79 (97) 96 09/08/18 20:00 94 09/08/18 16:00 98.9 83 20 134/57 (82) 95 09/08/18 15:10 97 09/08/18 12:00 98.5 79 18 129/57 (81) 96 09/08/18 11:59 76 128/49 09/08/18 11:38 72 09/08/18 09:00 Nasal Cannula 4.0 09/08/18 08:00 100.0 76 20 128/49 (75) 95 09/08/18 07:30 69 09/08/18 06:19 81 128/58 09/08/18 04:00 79 09/08/18 04:00 98.1 81 18 128/58 (81) 96 09/08/18 00:25 84 154/69 09/08/18 00:00 98.3 88 18 128/58 (81) 96 09/08/18 00:00 78 09/07/18 21:00 4.0 09/07/18 21:00 Nasal Cannula 4.0 09/07/18 20:00 98.5 84 18 154/69 (97) 96 09/07/18 20:00 91 09/07/18 17:38 90 130/62 09/07/18 16:00 98.9 85 19 147/68 (94) 95 09/07/18 16:00 86 09/07/18 12:08 83 118/64 09/07/18 12:00 82 09/07/18 12:00 97.5 83 17 118/64 (82) 95 Intake and Output 09/08/18 09/09/18 19:00 07:00 Intake Total 725.0 ml Output Total 500 ml Balance 225.0 ml IV Total 695.0 ml Tube Feeding 30 ml Output Urine Total 500 ml # Voids 3 # Bowel Movements 1 1 Labs Test 09/07/18 05:50 09/08/18 07:03 09/09/18 06:52 White Blood Count 18.4 K/UL (4.8-10.8) 14.1 K/UL (4.8-10.8) 11.9 K/UL (4.8-10.8) Red Blood Count 3.07 M/UL (4.70-6.10) 3.12 M/UL (4.70-6.10) 3.31 M/UL (4.70-6.10) Hemoglobin 8.5 G/DL (14.2-18.0) 8.3 G/DL (14.2-18.0) 8.9 G/DL (14.2-18.0) Hematocrit 27.6 % (42.0-52.0) 27.8 % (42.0-52.0) 29.2 % (42.0-52.0) Mean Corpuscular Volume 90 FL (80-99) 89 FL (80-99) 88 FL (80-99) Mean Corpuscular Hemoglobin 27.7 PG (27.0-31.0) 26.6 PG (27.0-31.0) 26.8 PG (27.0-31.0) Mean Corpuscular Hemoglobin Concent 30.9 G/DL (32.0-36.0) 29.9 G/DL (32.0-36.0) 30.3 G/DL (32.0-36.0) Red Cell Distribution Width 16.4 % (11.6-14.8) 16.7 % (11.6-14.8) 16.5 % (11.6-14.8) Platelet Count 242 K/UL (150-450) 212 K/UL (150-450) 234 K/UL (150-450) Mean Platelet Volume 7.2 FL (6.5-10.1) 6.9 FL (6.5-10.1) 6.9 FL (6.5-10.1) Neutrophils (%) (Auto) % (45.0-75.0) % (45.0-75.0) 82.2 % (45.0-75.0) Lymphocytes (%) (Auto) % (20.0-45.0) % (20.0-45.0) 7.4 % (20.0-45.0) Monocytes (%) (Auto) % (1.0-10.0) % (1.0-10.0) 7.0 % (1.0-10.0) Eosinophils (%) (Auto) % (0.0-3.0) % (0.0-3.0) 2.6 % (0.0-3.0) Basophils (%) (Auto) % (0.0-2.0) % (0.0-2.0) 0.8 % (0.0-2.0) Differential Total Cells Counted 100 100 Neutrophils % (Manual) 86 % (45-75) 82 % (45-75) Lymphocytes % (Manual) 10 % (20-45) 10 % (20-45) Monocytes % (Manual) 4 % (1-10) 6 % (1-10) Eosinophils % (Manual) 0 % (0-3) 2 % (0-3) Basophils % (Manual) 0 % (0-2) 0 % (0-2) Band Neutrophils 0 % (0-8) 0 % (0-8) Platelet Estimate Adequate Adequate Platelet Morphology Normal Normal Anisocytosis 1+ 1+ Reticulocyte Count 0.4 % (0.5-2.0) Prothrombin Time 11.6 SEC (9.30-11.50) Prothromb Time International Ratio 1.1 (0.9-1.1) Activated Partial Thromboplast Time 32 SEC (23-33) Sodium Level 146 MMOL/L (136-145) 144 MMOL/L (136-145) 144 MMOL/L (136-145) Potassium Level 3.9 MMOL/L (3.5-5.1) 3.4 MMOL/L (3.5-5.1) 3.4 MMOL/L (3.5-5.1) Chloride Level 110 MMOL/L (98-107) 109 MMOL/L (98-107) 108 MMOL/L (98-107) Carbon Dioxide Level 25 MMOL/L (21-32) 26 MMOL/L (21-32) 24 MMOL/L (21-32) Anion Gap 11 mmol/L (5-15) 9 mmol/L (5-15) 12 mmol/L (5-15) Blood Urea Nitrogen 47 mg/dL (7-18) 37 mg/dL (7-18) 33 mg/dL (7-18) Creatinine 2.5 MG/DL (0.55-1.30) 2.4 MG/DL (0.55-1.30) 2.4 MG/DL (0.55-1.30) Estimat Glomerular Filtration Rate mL/min (>60) mL/min (>60) mL/min (>60) Glucose Level 319 MG/DL (74-106) 297 MG/DL (74-106) 154 MG/DL (74-106) Hemoglobin A1c 6.0 % (4.3-6.0) Uric Acid 4.9 MG/DL (2.6-7.2) Calcium Level 9.0 MG/DL (8.5-10.1) 9.1 MG/DL (8.5-10.1) 9.3 MG/DL (8.5-10.1) Phosphorus Level 3.0 MG/DL (2.5-4.9) 2.9 MG/DL (2.5-4.9) 2.6 MG/DL (2.5-4.9) Magnesium Level 2.1 MG/DL (1.8-2.4) 2.0 MG/DL (1.8-2.4) 1.9 MG/DL (1.8-2.4) Iron Level 9 ug/dL (50-175) Total Iron Binding Capacity 132 ug/dL (250-450) Percent Iron Saturation 7 % (15-50) Unsaturated Iron Binding 123 ug/dL (112-346) Ferritin 156 NG/ML (8-388) Total Bilirubin 0.2 MG/DL (0.2-1.0) 0.2 MG/DL (0.2-1.0) 0.3 MG/DL (0.2-1.0) Gamma Glutamyl Transpeptidase 9 U/L (5-85) Aspartate Amino Transf (AST/SGOT) 15 U/L (15-37) 16 U/L (15-37) 29 U/L (15-37) Alanine Aminotransferase (ALT/SGPT) 13 U/L (12-78) 16 U/L (12-78) 24 U/L (12-78) Alkaline Phosphatase 100 U/L (46-116) 100 U/L (46-116) 113 U/L (46-116) Troponin I 0.326 ng/mL (0.000-0.056) C-Reactive Protein, Quantitative 40.4 mg/dL (0.00-0.90) Pro-B-Type Natriuretic Peptide 6996 pg/mL (0-125) Total Protein 6.7 G/DL (6.4-8.2) 6.7 G/DL (6.4-8.2) 6.1 G/DL (6.4-8.2) Albumin 1.9 G/DL (3.4-5.0) 1.7 G/DL (3.4-5.0) 1.9 G/DL (3.4-5.0) Globulin 4.8 g/dL 5.0 g/dL Albumin/Globulin Ratio 0.4 (1.0-2.7) 0.3 (1.0-2.7) Triglycerides Level 81 MG/DL (30-150) Cholesterol Level 70 MG/DL (< 200) LDL Cholesterol 33 mg/dL (<100) HDL Cholesterol 26 MG/DL (40-60) Cholesterol/HDL Ratio 2.7 (3.3-4.4) Vitamin B12 Level 617 PG/ML (193-986) Folate 13.8 NG/ML (8.6-58.9) Thyroid Stimulating Hormone (TSH) 0.585 uiU/mL (0.358-3.740) Free Thyroxine 1.10 NG/DL (0.76-1.46) Hypochromasia 1+ Direct Bilirubin 0.1 MG/DL (0.0-0.3) Height (Feet): 6 Height (Inches): 0.00 Weight (Pounds): 158 Objective PE Vitals: reviewed, normal Gen: no apparent distress, alert, thin, Chronically Ill Neck: supple Respiratory: rhonchi CV: regular rate, rhythm, no edema GI: soft, no mass, non-distended, other - g tube/colostomy Gu: normal inspection Skin: normal inspection, warm/dry Sohail Reese MD Sep 09, 2018 09:31
--- NOTE | 2018-09-09 09:49 | NUR ---
DISCHARGE PLANNING DISCHARGE ORDER NOTED FAXED CLINICALS TO [facility] RO[facility] NUMBER
--- NOTE | 2018-09-09 10:25 | Infectious Diseases Prog Note ---
Assessment/Plan Assessment/Plan A 1. pneumonia 2. leucocytosis improving 3. renal failure improving 4. hypertension 5. 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 Anemia P 1. discontinue Zosyn 2. Levaquin 250 mg by GT daily X 3 dose Subjective ROS Limited/Unobtainable: Yes Neurologic: Reports: confusion, other - on restraint Allergies: Coded Allergies: No Known Allergies (Verified , 12/29/06) Objective Vital Signs Last 24 Hour Vital Signs Date Time Temp Pulse Resp B/P (MAP) Pulse Ox O2 Delivery O2 Flow Rate FiO2 09/09/18 08:00 97.3 76 20 116/61 (79) 95 09/09/18 06:01 91 129/56 09/09/18 04:00 97.6 87 24 129/56 (80) 93 09/09/18 04:00 91 09/09/18 00:00 98.6 103 24 121/76 (91) 94 09/09/18 00:00 96 09/09/18 00:00 96 121/76 09/08/18 21:54 95 18 96 Nasal Cannula 4.0 36 09/08/18 21:54 96 Nasal Cannula 4.0 36 09/08/18 21:00 Nasal Cannula 4.0 09/08/18 20:00 99.1 96 24 134/79 (97) 96 09/08/18 20:00 94 09/08/18 16:00 98.9 83 20 134/57 (82) 95 09/08/18 15:10 97 09/08/18 12:00 98.5 79 18 129/57 (81) 96 09/08/18 11:59 76 128/49 09/08/18 11:38 72 Height (Feet): 6 Height (Inches): 0.00 Weight (Pounds): 158 HEENT: mucous membranes moist Respiratory/Chest: lungs clear Cardiovascular: normal rate Abdomen: soft, non tender, other - GT feeding, left side colostomy Genitourinary: other - condom catheter Extremities: no edema Neurologic/Psychiatric: aphasia Laboratory Tests Test 09/09/18 06:52 White Blood Count 11.9 K/UL (4.8-10.8) H Red Blood Count 3.31 M/UL (4.70-6.10) L Hemoglobin 8.9 G/DL (14.2-18.0) L Hematocrit 29.2 % (42.0-52.0) L Mean Corpuscular Volume 88 FL (80-99) Mean Corpuscular Hemoglobin 26.8 PG (27.0-31.0) L Mean Corpuscular Hemoglobin Concent 30.3 G/DL (32.0-36.0) L Red Cell Distribution Width 16.5 % (11.6-14.8) H Platelet Count 234 K/UL (150-450) Mean Platelet Volume 6.9 FL (6.5-10.1) Neutrophils (%) (Auto) 82.2 % (45.0-75.0) H Lymphocytes (%) (Auto) 7.4 % (20.0-45.0) L Monocytes (%) (Auto) 7.0 % (1.0-10.0) Eosinophils (%) (Auto) 2.6 % (0.0-3.0) Basophils (%) (Auto) 0.8 % (0.0-2.0) Sodium Level 144 MMOL/L (136-145) Potassium Level 3.4 MMOL/L (3.5-5.1) L Chloride Level 108 MMOL/L (98-107) H Carbon Dioxide Level 24 MMOL/L (21-32) Anion Gap 12 mmol/L (5-15) Blood Urea Nitrogen 33 mg/dL (7-18) H Creatinine 2.4 MG/DL (0.55-1.30) H Estimat Glomerular Filtration Rate mL/min (>60) Glucose Level 154 MG/DL (74-106) #H Calcium Level 9.3 MG/DL (8.5-10.1) Phosphorus Level 2.6 MG/DL (2.5-4.9) Magnesium Level 1.9 MG/DL (1.8-2.4) Total Bilirubin 0.3 MG/DL (0.2-1.0) Direct Bilirubin 0.1 MG/DL (0.0-0.3) Aspartate Amino Transf (AST/SGOT) 29 U/L (15-37) Alanine Aminotransferase (ALT/SGPT) 24 U/L (12-78) Alkaline Phosphatase 113 U/L (46-116) Total Protein 6.1 G/DL (6.4-8.2) L Albumin 1.9 G/DL (3.4-5.0) L Current Medications Medications (Trade) Dose Ordered Sig/Jared Route PRN Reason Start Time Stop Time Status Last Admin Dose Admin Clonidine HCl (Catapres Tab) 0.1 mg Q4H PRN GT bp over 165 syst 09/06/18 12:00 10/06/18 11:59 Dextrose (Dextrose 50%) 25 ml Q30M PRN IV Hypoglycemia 09/06/18 00:00 10/06/18 00:00 Dextrose (Dextrose 50%) 50 ml Q30M PRN IV Hypoglycemia 09/06/18 00:00 10/06/18 00:00 Diltiazem HCl (Cardizem) 30 mg Q6HR GT 09/06/18 12:00 10/06/18 13:59 09/09/18 06:01 Insulin Aspart (NovoLOG) BEFORE MEALS AND HS SUBQ 09/06/18 06:30 10/06/18 06:29 09/09/18 06:01 Iron Sucrose 100 mg/Sodium Chloride 60 ml @ 240 mls/hr BEDTIME IV 09/07/18 21:00 09/09/18 21:14 09/08/18 23:35 Pantoprazole (Protonix) 40 mg EVERY 12 HOURS IVP 09/06/18 21:00 10/06/18 20:59 09/09/18 09:13 Piperacillin Sod/ Tazobactam Sod 3.375 gm/Sodium Chloride 110 ml @ 27.5 mls/hr EVERY 12 HOURS IVPB 09/06/18 11:30 09/11/18 11:29 09/09/18 09:13 Potassium Chloride 100 ml @ 100 mls/hr Q1HR IVPB 09/09/18 09:00 09/09/18 10:59 09/09/18 09:13 Quetiapine Fumarate (SEROquel) 25 mg TID ORAL 09/08/18 16:00 10/08/18 15:59 09/09/18 09:13 Quetiapine Fumarate (SEROquel) 50 mg Q12H PRN ORAL agitation 09/08/18 16:00 10/08/18 15:59 Sodium Chloride 1,000 ml @ 75 mls/hr [id number] IV 09/08/18 10:22 10/08/18 10:21 09/08/18 23:42 Tamsulosin HCl (Flomax) 0.4 mg BID ORAL 09/07/18 10:45 10/07/18 10:44 09/09/18 09:13 Cheo Bhagat MD Sep 09, 2018 10:25
--- NOTE | 2018-09-09 10:32 | NUR ---
DISCHARGE PLANNED PATIENT IS RETURNING TO [facility] ROOM [address] SKILLED T: [phone] FOR NURSE TO NURSE REPORT [facility] HAS BEEN ARRANGED FOR 1230 [employer] TRANSFER FORM COMPLETED
[2018-09-09] MEDS ORDERED: LEVAQUIN500 MG GT (10:49)
--- NOTE | 2018-09-09 11:07 | NUR ---
NURSE NOTES: Called report to ALDO Soto at [facility]. Notified of G-tube Abx to be continued at SNF. Notified Dr. Sin as well
--- NOTE | 2018-09-09 11:46 | GI Progress Note ---
Assessment/Plan Problems: (1) PEG (percutaneous endoscopic gastrostomy) status ICD Codes: Z93.1 - Gastrostomy status SNOMED: 812376298, 768579298 (2) S/P colostomy ICD Codes: Z93.3 - Colostomy status SNOMED: 70326724, 274365530, 490552751 (3) Sepsis ICD Codes: A41.9 - Sepsis, unspecified organism SNOMED: 47752071 Qualifiers: Qualified Codes: A41.9 - Sepsis, unspecified organism (4) GERD (gastroesophageal reflux disease) ICD Codes: K21.9 - GERD (gastroesophageal reflux disease) SNOMED: 298136498 (5) Anemia ICD Codes: D64.9 - Anemia SNOMED: 395338793 (6) Hypoalbuminemia ICD Codes: E88.09 - Other disorders of plasma-protein metabolism, not elsewhere classified SNOMED: 188871860 Status: stable Status Narrative Discussed with Dr. Ochoa Assessment/Plan Failed video swallow Supportive care at this time, GI procedures only if emergent GTFs per RD OB stool r/o GI bleed monitor H&H, prn transfusions bowel regimen ppi fu labs DC planning The patient was seen and examined at bedside and all new and available data was reviewed in the patients chart. I agree with the above findings, impression and plan. (Patient seen earlier today. Signature stamp does not reflect patient encounter time.). - Abner Ochoa MD Subjective Subjective Limited Objective Last 24 Hour Vital Signs Date Time Temp Pulse Resp B/P (MAP) Pulse Ox O2 Delivery O2 Flow Rate FiO2 09/09/18 11:37 78 126/80 09/09/18 09:00 Nasal Cannula 4.0 09/09/18 08:00 80 09/09/18 08:00 97.3 76 20 116/61 (79) 95 09/09/18 06:01 91 129/56 09/09/18 04:00 97.6 87 24 129/56 (80) 93 09/09/18 04:00 91 09/09/18 00:00 98.6 103 24 121/76 (91) 94 09/09/18 00:00 96 09/09/18 00:00 96 121/76 09/08/18 21:54 95 18 96 Nasal Cannula 4.0 36 09/08/18 21:54 96 Nasal Cannula 4.0 36 09/08/18 21:00 Nasal Cannula 4.0 09/08/18 20:00 99.1 96 24 134/79 (97) 96 09/08/18 20:00 94 09/08/18 16:00 98.9 83 20 134/57 (82) 95 09/08/18 15:10 97 09/08/18 12:00 98.5 79 18 129/57 (81) 96 09/08/18 11:59 76 128/49 Intake and Output 09/08/18 09/09/18 19:00 07:00 Intake Total 725.0 ml Output Total 500 ml Balance 225.0 ml IV Total 695.0 ml Tube Feeding 30 ml Output Urine Total 500 ml # Voids 3 # Bowel Movements 1 1 Laboratory Tests Test 09/09/18 06:52 White Blood Count 11.9 K/UL (4.8-10.8) H Red Blood Count 3.31 M/UL (4.70-6.10) L Hemoglobin 8.9 G/DL (14.2-18.0) L Hematocrit 29.2 % (42.0-52.0) L Mean Corpuscular Volume 88 FL (80-99) Mean Corpuscular Hemoglobin 26.8 PG (27.0-31.0) L Mean Corpuscular Hemoglobin Concent 30.3 G/DL (32.0-36.0) L Red Cell Distribution Width 16.5 % (11.6-14.8) H Platelet Count 234 K/UL (150-450) Mean Platelet Volume 6.9 FL (6.5-10.1) Neutrophils (%) (Auto) 82.2 % (45.0-75.0) H Lymphocytes (%) (Auto) 7.4 % (20.0-45.0) L Monocytes (%) (Auto) 7.0 % (1.0-10.0) Eosinophils (%) (Auto) 2.6 % (0.0-3.0) Basophils (%) (Auto) 0.8 % (0.0-2.0) Sodium Level 144 MMOL/L (136-145) Potassium Level 3.4 MMOL/L (3.5-5.1) L Chloride Level 108 MMOL/L (98-107) H Carbon Dioxide Level 24 MMOL/L (21-32) Anion Gap 12 mmol/L (5-15) Blood Urea Nitrogen 33 mg/dL (7-18) H Creatinine 2.4 MG/DL (0.55-1.30) H Estimat Glomerular Filtration Rate mL/min (>60) Glucose Level 154 MG/DL (74-106) #H Calcium Level 9.3 MG/DL (8.5-10.1) Phosphorus Level 2.6 MG/DL (2.5-4.9) Magnesium Level 1.9 MG/DL (1.8-2.4) Total Bilirubin 0.3 MG/DL (0.2-1.0) Direct Bilirubin 0.1 MG/DL (0.0-0.3) Aspartate Amino Transf (AST/SGOT) 29 U/L (15-37) Alanine Aminotransferase (ALT/SGPT) 24 U/L (12-78) Alkaline Phosphatase 113 U/L (46-116) Total Protein 6.1 G/DL (6.4-8.2) L Albumin 1.9 G/DL (3.4-5.0) L Height (Feet): 6 Height (Inches): 0.00 Weight (Pounds): 158 General Appearance: WD/WN, no apparent distress, alert Cardiovascular: normal rate Respiratory/Chest: normal breath sounds, no respiratory distress Abdominal Exam: normal bowel sounds, non tender, soft, GT site - G-tube placement confirmed by x-ray Extremities: normal range of motion, non-tender Meredith Avilez NP Sep 09, 2018 11:46
[2018-09-09 11:56] VITALS: BP 126/80
--- NOTE | 2018-09-09 12:36 | NUR ---
NURSE NOTES: Photo of sacral area uploaded to system
--- NOTE | 2018-09-09 13:07 | NUR ---
NURSE NOTES: Pt discharged back to [facility]. Dentures were only belonging brought to hospital and were given to EMS personnel for transport back to SNF. Pt stable for discharge. IV removed, ID band removed, Tele box returned to Melissa, cafeteria monitor.
--- NOTE | 2018-09-09 13:14 | Diagnostic Imaging Report ---
Indication: Gastrostomy check Comparison: 07/17/2018 Single view of the abdomen obtained Findings: Contrast instilled into indwelling gastrostomy showing the balloon in the body of the stomach. There is contrast in the stomach and duodenal bulb. There is no leak identified. Moderate degree of fecal retention noted within the rectum which is distended. IMPRESSION: Unremarkable gastrostomy check. Rectal fecal impaction incidentally noted
--- NOTE | 2018-09-09 17:30 | Progress Note ---
DATE: 09/09/2018 SUBJECTIVE: The patient is confused and disoriented. Presents with waxing and waning consciousness. The patient is having episodes of agitation and is confused. Attempted to pull out his G-tube yesterday. MENTAL STATUS EXAMINATION: The patient is alert, confused. Mood is agitated. Affect is flat. Thought process, there is a paucity of thought content. Thought content, no suicidal or homicidal ideation. ASSESSMENT: Dementia with behavior disturbance. PLAN: 1. We will continue the low-dose of antipsychotics. 2. Continue the restraints. 3. The patient lacks capacity to make decision. Ce Reid M.D. DR: ANETTE JOB#: [id number] CC:
--- NOTE | 2018-09-10 12:59 | Discharge Summary ---
Discharge Summary Discharge Summary _ DATE OF ADMISSION: 09/05/2018 DATE OF DISCHARGE: 09/09/2018 DISCHARGED BY: Dr. Rene Potter CONSULTANTS: Dr. Ce Hoyos BRIEF HOSPITAL COURSE: Patient is an 82-year-old male who presented to ED via EMS due to respiratory distress. His oxygenation was noted to be low at the nursing facility. He was started on O2 by EMS. He has medical history significant for CVA, dementia, dysphagia on G-tube, hypertension, diabetes mellitus, schizophrenia, anemia, congestive heart failure, status post colostomy. On evaluation at the ED, blood work showed WBC 11 7. Hemoglobin 9.9, hematocrit sodium was elevated to 151. Potassium 4.4. BUN was 61 and creatinine was elevated to 2.5. Lactic acid was elevated to 2.9. Troponin was negative. proBNP was 2457. Urinalysis with 10-15 urine RBC, 0-2 urine WBC, negative leukocyte esterase, +3 protein. EKG did not show any acute changes. Chest x-ray showed diffuse right lung and left basilar interstitial disease. He was given IV hydration, he was started on antibiotics. He was then admitted for evaluation of pneumonia and renal failure. He was continued on IV hydration. Patient was noted to have hypernatremia. Internal Combustion Engine Assembler was consulted. He was given D5 water. ID was consulted for leukocytosis. WBC went up to 26.6. Patient was afebrile. There was consideration for aspiration pneumonia. Patient was started on Zosyn. Anemia work-up from prior admission showed ferritin was low at 42. Anemia work- up showed repleted iron. There was no evidence of hemolysis. He was given proton pump inhibitors. Video swallow showed trace penetration of thin liquid barium. He was continued on tube feeding with non-oral feeding. Venous duplex was negative for acute DVT. Kidney ultrasound showed increased renal echogenicity. Negative for hydronephrosis. Patient was confused, not redirectable and had disorganized speech and behavior. Psychiatrist was consulted. He was placed on bilateral soft wrist restraints. He was started on Seroquel. Blood culture did not isolate any growth. Urine culture with no growth. Zosyn was discontinued and was changed to Levaquin 250 via GT. KUB done for gastrostomy check was unremarkable. Leukocytosis was resolving. Patient was afebrile. He was eventually discharged [facility]. . FINAL DIAGNOSES: Pneumonia Acute on chronic renal failure Hypernatremia Hypertension Dementia with behavioral disturbance Dysphagia with PEG Colostomy Anemia GERD Hypoalbuminemia Agitation DISPOSITION: DC to [facility]. DISCHARGE MEDICATIONS: Refer to Discharge Medication List. I have been assigned to complete a discharge summary on this account, I was not involved with the patient's management.--SULLY Crabtree Jacqueline Robles NP Sep 10, 2018 12:59
--- NOTE | 2018-09-13 20:53 | Cardiology Report ---
APPROVED REPORT EKG Measurement Heart [id number] Sinus tachycardia Right bundle branch block Left anterior fascicular block Bifascicular block Septal infarct, age undetermined Abnormal ECG
== END 2018-09-09 13:07 | DRG 194 ==
LOC: EDBD 18:28 → EDBEDREQ 19:00 → EMR 19:19 → 2E 19:24 → EDBEDREQ 19:33
DX: J18.9 Pneumonia, unspecified organism (principal); N17.9 Acute kidney failure, unspecified; E87.0 Hyperosmolality and hypernatremia; F03.91 Unspecified dementia, unspecified severity, with behavioral disturbance; Z43.1 Encounter for attention to gastrostomy; R47.01 Aphasia; I12.9 Hypertensive chronic kidney disease with stage 1 through stage 4 chronic kidney disease, or unspecified chronic kidney disease; N18.9 Chronic kidney disease, unspecified; R13.10 Dysphagia, unspecified; Z43.3 Encounter for attention to colostomy; K21.9 Gastro-esophageal reflux disease without esophagitis; E88.09 Other disorders of plasma-protein metabolism, not elsewhere classified; R45.1 Restlessness and agitation; E11.22 Type 2 diabetes mellitus with diabetic chronic kidney disease; F20.9 Schizophrenia, unspecified; D50.9 Iron deficiency anemia, unspecified
CPT/HCPCS: 36415; 71045; 74018; 74230; 76770; 80048; 80053; 80061; 80076; 81003; 82550; 82607; 82728; 82746; 82962; 82977; 83036; 83540; 83550; 83605; 83690; 83735; 83880; 84100; 84439; 84443; 84484; 84550; 85007; 85025; 85044; 85060; 85610; 85730; 86140; 87040; 87081; 87086; 93005; 93970; 94640; 94664; 96360; 99285; J1815

== ENCOUNTER 2018-10-20 11:26 | Inpatient (IN) | payer MEDICARE, OTHER ==
[~2018-10-20] VITALS: Ht 167.6 cm; Wt 69.3 kg
[~2018-10-20 11:26] MED LIST changes: +LEVAQUIN500 MG GT
--- NOTE | 2018-10-20 11:58 | Emergency Room Report ---
History of Present Illness General Chief Complaint: Malfunctioning Gastric Tube Source: Medical Record, EMS Present Illness HPI Disclaimer: Please note that this report is being documented using DRAGON technology. This can lead to erroneous entry secondary to incorrect interpretation by the dictating instrument. HPI: 82-year-old male with history of chronic renal failure, hypertension, dementia, dysphagia status post PEG tube, diverting ostomy, anemia, GERD presents for evaluation of dislodged G-tube, inability to feed for several days and possibly worsening renal function as well as hypoglycemia. Unclear when the patient's PEG tube was dislodged however the nursing facility was able to place a 16 [place] Noble to maintain a patent ostomy. They have been unable to feed him and concerned about his renal function given his limited intake. He also was found to be hypoglycemic with blood sugar of 60 this morning on rounds. He was given glucagon and EMS had a blood sugar reading in the 160s approximately 10 AM. The patient is nonverbal though can nod and appears to understand. He is denying any pain at this time. There is no mention of infection, fevers or abnormal vital signs otherwise. PMH: Chronic kidney disease, hypertension, dementia, dysphasia, anemia, GERD PSH: Colostomy, PEG tube Allergies: None listed Social Hx: Unable to obtain Allergies: Coded Allergies: No Known Allergies (Verified , 12/29/06) Nursing Documentation-PMH Hx Cardiac Problems: Yes Hx Hypertension: Yes Hx Diabetes: Yes Hx Cancer: No Hx Gastrointestinal Problems: Yes - G TUBE/ COLOSTOMY Hx Neurological Problems: Yes Hx Cerebrovascular Accident: Yes Hx Dementia: Yes Hx Dysphasia: Yes Review of Systems All Other Systems: limited - Unable to obtain as the patient is nonverbal Physical Exam Vital Signs Date Time Temp Pulse Resp B/P (MAP) Pulse Ox O2 Delivery O2 Flow Rate FiO2 10/20/18 11:30 97.0 90 18 110/64 (79) 96 Room Air General: Awake, nonverbal HEENT: NC/AT. EOMI. edentulous Cardiovascular: RRR. S1 and S2 normal. No murmur appreciated Resp: Normal work of breathing. No cough, wheezing or crackles appreciated Abdomen: Abdomen is soft, nondistended. Nontender. There is a Noble catheter, 16 [place], placed in the ostomy of his PEG tube. No surrounding erythema, edema , skin breakdown or discharge. Colostomy appears in place without leakage. Skin: Intact. No abrasions, laceration or rash over the exposed skin MSK: Normal tone and bulk. Moving all extremities. No obvious deformity. Neuro: Awake. Responds to questions by nodding yes and no. Appears to understand. Medical Decision Making Diagnostic Impression: Primary Impression: Malfunction of percutaneous endoscopic gastrostomy (PEG) tube Additional Impressions: Anemia CKD (chronic kidney disease) ER Course 82-year-old male presents for evaluation of hypoglycemia, displaced PEG tube. Can attempt to replace the PEG have ordered a metabolic and infectious work-up for the patient. Will attempt to replace PEG and discuss with PMD regarding disposition based on workup. Laboratory Tests Test 10/20/18 12:00 White Blood Count 18.8 K/UL (4.8-10.8) H Red Blood Count 4.28 M/UL (4.70-6.10) L Hemoglobin 11.4 G/DL (14.2-18.0) L Hematocrit 38.0 % (42.0-52.0) L Mean Corpuscular Volume 89 FL (80-99) Mean Corpuscular Hemoglobin 26.6 PG (27.0-31.0) L Mean Corpuscular Hemoglobin Concent 29.9 G/DL (32.0-36.0) L Red Cell Distribution Width 19.3 % (11.6-14.8) H Platelet Count 225 K/UL (150-450) Mean Platelet Volume 7.8 FL (6.5-10.1) Neutrophils (%) (Auto) % (45.0-75.0) Lymphocytes (%) (Auto) % (20.0-45.0) Monocytes (%) (Auto) % (1.0-10.0) Eosinophils (%) (Auto) % (0.0-3.0) Basophils (%) (Auto) % (0.0-2.0) Differential Total Cells Counted 100 Neutrophils % (Manual) 86 % (45-75) H Lymphocytes % (Manual) 10 % (20-45) L Monocytes % (Manual) 4 % (1-10) Eosinophils % (Manual) 0 % (0-3) Basophils % (Manual) 0 % (0-2) Band Neutrophils 0 % (0-8) Platelet Estimate Adequate Platelet Morphology Normal Anisocytosis 1+ Urine Color Pale yellow Urine Appearance Clear Urine pH 5 (4.5-8.0) Urine Specific [place] 1.015 (1.005-1.035) Urine Protein 3+ (NEGATIVE) H Urine Glucose (UA) Negative (NEGATIVE) Urine Ketones Negative (NEGATIVE) Urine Blood 3+ (NEGATIVE) H Urine Nitrite Negative (NEGATIVE) Urine Bilirubin Negative (NEGATIVE) Urine Urobilinogen Normal MG/DL (0.0-1.0) Urine Leukocyte Esterase Negative (NEGATIVE) Urine RBC 2-4 /HPF (0 - 0) H Urine WBC 0-2 /HPF (0 - 0) Urine Squamous Epithelial Cells Occasional /LPF Urine Amorphous Sediment Few /LPF (NONE) H Urine Bacteria Few /HPF (NONE) Urine Mucus Few /LPF (NONE/OCC) H Sodium Level 154 MMOL/L (136-145) H Potassium Level 4.4 MMOL/L (3.5-5.1) Chloride Level 117 MMOL/L (98-107) H Carbon Dioxide Level 27 MMOL/L (21-32) Anion Gap 10 mmol/L (5-15) Blood Urea Nitrogen 71 mg/dL (7-18) H Creatinine 2.2 MG/DL (0.55-1.30) H Estimate Glomerular Filtration Rate mL/min (>60) Glucose Level 102 MG/DL (74-106) Lactic Acid Level 1.10 mmol/L (0.4-2.0) Calcium Level 9.6 MG/DL (8.5-10.1) Phosphorus Level 4.1 MG/DL (2.5-4.9) Magnesium Level 2.5 MG/DL (1.8-2.4) H Total Bilirubin 0.4 MG/DL (0.2-1.0) Aspartate Amino Transferase (AST) 63 U/L (15-37) H Alanine Aminotransferase (ALT) 102 U/L (12-78) H Alkaline Phosphatase 164 U/L (46-116) H Total Creatine Kinase 978 U/L (26-308) H Troponin I 0.000 ng/mL (0.000-0.056) Total Protein 8.6 G/DL (6.4-8.2) H Albumin 2.5 G/DL (3.4-5.0) L Globulin 6.1 g/dL Albumin/Globulin Ratio 0.4 (1.0-2.7) L Reevaluation Time: 14:03 Last Vital Signs Date Time Temp Pulse Resp B/P (MAP) Pulse Ox O2 Delivery O2 Flow Rate FiO2 10/20/18 11:30 97.0 90 18 110/64 (79) 96 Room Air Status: unchanged Reevaluation Impression Lab work shows a stable creatinine at 2.2 which is the patient's baseline. Baseline anemia, no obvious evidence of acute urinary tract infection. Patient has some hypernatremia, elevated liver enzymes and will require inpatient admission for PEG replacement. He will be admitted to the floor. Disposition: ADMITTED INPATIENT Condition: Serious Sam Randle MD Oct 20, 2018 11:58
[2018-10-20 12:16] VITALS: BP 121/79
[2018-10-20 12:16] LABS: APPEARANCE,URINE CLEAR; BILIRUBIN, URINE NEGATIVE (NEGATIVE); COLOR,URINE PALE YELLOW; GLUCOSE, URINE (UA) NEGATIVE (NEGATIVE); HEMOGLOBIN 11.4 G/DL (14.2-18.0); KETONES,URINE NEGATIVE (NEGATIVE); LEUKOCYTE ESTERASE ,URINE NEGATIVE (NEGATIVE); MEAN CORPUSCULAR VOLUME 89 FL (80-99); NITRITE,URINE NEGATIVE (NEGATIVE); PH,URINE 5 (4.5-8.0); PLATELET COUNT 225 K/UL (150-450); PROTEIN,URINE 3+ (NEGATIVE); RED BLOOD COUNT 4.28 M/UL (4.70-6.10); RED CELL DISTRIBUTION WIDTH 19.3 % (11.6-14.8); UROBILINOGEN,URINE NORMAL MG/DL (0.0-1.0); WHITE BLOOD COUNT 18.8 K/UL (4.8-10.8)
[2018-10-20 12:31] LABS: ANION GAP 10 mmol/L (5-15); BLOOD UREA NITROGEN 71 mg/dL (7-18); CALCIUM 9.6 MG/DL (8.5-10.1); CARBON DIOXIDE 27 MMOL/L (21-32); CHLORIDE 117 MMOL/L (98-107); CREATININE 2.2 MG/DL (0.55-1.30); POTASSIUM 4.4 MMOL/L (3.5-5.1); SODIUM 154 MMOL/L (136-145)
[2018-10-20 12:37] LABS: ALANINE AMINOTRANSFERASE 102 U/L (12-78); ALBUMIN 2.5 G/DL (3.4-5.0); ALBUMIN/GLOBULIN RATIO 0.4 (1.0-2.7); ALKALINE PHOSPHATASE 164 U/L (46-116); ASPARTATE AMINO TRANSFERASE 63 U/L (15-37); BILIRUBIN,TOTAL 0.4 MG/DL (0.2-1.0); CREATINE KINASE 978 U/L (26-308); PHOSPHORUS 4.1 MG/DL (2.5-4.9)
--- NOTE | 2018-10-20 14:33 | Consultation ---
Consult Note Consult Note Asked to eval for high BUN and Na HPI: 82-year-old male with history of chronic renal failure, hypertension, dementia, dysphagia status post PEG tube, diverting ostomy, anemia, GERD presents for evaluation of dislodged G-tube, inability to feed for several days and possibly worsening renal function as well as hypoglycemia. Unclear when the patient's PEG tube was dislodged however the nursing facility was able to place a 16 [place] Noble to maintain a patent ostomy. They have been unable to feed him and concerned about his renal function given his limited intake. He also was found to be hypoglycemic with blood sugar of 60 this morning on rounds. He was given glucagon and EMS had a blood sugar reading in the 160s approximately 10 AM. The patient is nonverbal though can nod and appears to understand. He is denying any pain at this time. There is no mention of infection, fevers or abnormal vital signs otherwise. PMH: Chronic kidney disease, hypertension, dementia, dysphasia, anemia, GERD PSH: Colostomy, PEG tube Allergies: None listed Social Hx: Unable to obtain Hx Cardiac Problems: Yes Hx Hypertension: Yes Hx Diabetes: Yes Hx Gastrointestinal Problems: Yes - G TUBE/ COLOSTOMY Hx Neurological Problems: Yes Hx Cerebrovascular Accident: Yes Hx Dementia: Yes Hx Dysphasia: Yes Assessment/Plan (1) Renal failure (ARF), acute on chronic (2) h/o HTN (hypertension) (3) h/o DM (diabetes mellitus) (4) h/o Pneumonia (5) Hypoalbuminemia (6) Hypernatremia (7) S/P colostomy (8) PEG (percutaneous endoscopic gastrostomy) status Free water in form of D5W Cultures monitor renal parameters per orders per consultants Gregorio Hoyos MD Oct 20, 2018 14:33
[2018-10-20 16:00] VITALS: BP 152/88
--- NOTE | 2018-10-20 17:14 | GI Initial Consult Note ---
History of Present Illness General Date patient seen: Oct 20, 2018 Time patient seen: 17:09 Reason for Hospitalization: Malfunctioning Gastric Tube Referring physician: DONNIE PORTER Reason for Consultation: GT REPLACEMENT Present Illness HPI 82-year-old male with history of chronic renal failure, hypertension, dementia, dysphagia status post PEG tube, diverting ostomy, anemia, GERD presents for evaluation of dislodged G-tube, inability to feed for several days and possibly worsening renal function as well as hypoglycemia. Unclear when the patient's PEG tube was dislodged however the nursing facility was able to place a 16 [place] Noble to maintain a patent ostomy. They have been unable to feed him and concerned about his renal function given his limited intake. He also was found to be hypoglycemic with blood sugar of 60 this morning on rounds. He was given glucagon and EMS had a blood sugar reading in the 160s approximately 10 AM. The patient is nonverbal though can nod and appears to understand. He is denying any pain at this time. There is no mention of infection, fevers or abnormal vital signs otherwise. GI consulted for G-tube replacement. ROS limited, patient is nonverbal unable to provide any medical history. Patient seen, awake alert no apparent distress with no active signs of nausea vomiting. No reported diarrhea. GT site assessed; no erythema no drainage around the site. GT site stoma is currently opened by a Noble catheter. All labs reviewed. Home Meds Reported Medications Levofloxacin* (LEVAQUIN*) 500 Mg Tablet, 250 MG GT DAILY for 3 Days, TAB 09/09/18 Insulin Aspart (Novolog Flexpen) 100 Unit/1 Ml Insuln.pen, 6 UNITS SQ BIDAC 07/18/18 Guaifenesin/Dextromethorphan (Robitussin Cough-Chest Dm Liq) 237 Ml Liquid, 10 ML GT Q8HR PRN for For Cough, ML 07/18/18 Ipratropium/Albuterol Sulfate (DuoNeb 0.5-3(2.5)mg/3ml) 3 Ml Ampul.neb, 3 ML HHN Q6HR PRN for Shortness of Breath, EA 07/18/18 Donepezil Hcl* (DONEPEZIL HCL*) 5 Mg Tab.rapdis, 5 MG GT DAILY, TAB 07/18/18 Potassium Chloride (Potassium Chloride) 20 Meq/15 Ml Liquid, 20 MEQ GT DAILY, ML 07/18/18 Multivitamin Liquid* (MULTI-DELYN*) 237 Ml Liquid, 5 ML GT DAILY, ML 07/18/18 Acetaminophen (Tylenol) 325 Mg Capsule, 650 MG GT Q6HR PRN for Mild Pain/Temp > 100.5 MDD 3000 MG, CAP 07/17/18 Insulin Detemir (LEVEMIR FLEXPEN) 100 Unit/1 Ml Insuln.pen, 75 UNITS SUBQ DAILY , UNITS 07/17/18 Diltiazem Hcl* (CARDIZEM*) 30 Mg Tablet, 30 MG GT Q8HR, TAB 07/17/18 Dorzolamide Hcl/Timolol Maleat (COSOPT EYE DROPS) 10 Ml Drops, 1 DROP BOTH EYES BID for GLAUCOMA, ML 07/17/18 Insulin Detemir (LEVEMIR) 100 Unit/1 Ml Vial, 30 UNITS SUBQ QHS, VIAL 10/12/12 Med list reviewed/reconciled: Yes Allergies: Coded Allergies: No Known Allergies (Verified , 12/29/06) Patient History Limited by: medical condition History Provided By: Medical Record PMH Narrative PMH: Chronic kidney disease, hypertension, dementia, dysphasia, anemia, GERD PSH: Colostomy, PEG tube Allergies: None listed Social Hx: Unable to obtain Allergies: Coded Allergies: No Known Allergies (Verified , 12/29/06) Nursing Documentation-PMH Hx Cardiac Problems: Yes Hx Hypertension: Yes Hx Diabetes: Yes Hx Cancer: No Hx Gastrointestinal Problems: Yes - G TUBE/ COLOSTOMY Hx Neurological Problems: Yes Hx Cerebrovascular Accident: Yes Hx Dementia: Yes Hx Dysphasia: Yes Review of Systems All Other Systems: limited Physical Exam Vital Signs Date Time Temp Pulse Resp B/P (MAP) Pulse Ox O2 Delivery O2 Flow Rate FiO2 10/20/18 11:30 97.0 90 18 110/64 (79) 96 Room Air Labs Laboratory Tests Test 10/20/18 12:00 White Blood Count 18.8 K/UL (4.8-10.8) H Red Blood Count 4.28 M/UL (4.70-6.10) L Hemoglobin 11.4 G/DL (14.2-18.0) L Hematocrit 38.0 % (42.0-52.0) L Mean Corpuscular Volume 89 FL (80-99) Mean Corpuscular Hemoglobin 26.6 PG (27.0-31.0) L Mean Corpuscular Hemoglobin Concent 29.9 G/DL (32.0-36.0) L Red Cell Distribution Width 19.3 % (11.6-14.8) H Platelet Count 225 K/UL (150-450) Mean Platelet Volume 7.8 FL (6.5-10.1) Neutrophils (%) (Auto) % (45.0-75.0) Lymphocytes (%) (Auto) % (20.0-45.0) Monocytes (%) (Auto) % (1.0-10.0) Eosinophils (%) (Auto) % (0.0-3.0) Basophils (%) (Auto) % (0.0-2.0) Differential Total Cells Counted 100 Neutrophils % (Manual) 86 % (45-75) H Lymphocytes % (Manual) 10 % (20-45) L Monocytes % (Manual) 4 % (1-10) Eosinophils % (Manual) 0 % (0-3) Basophils % (Manual) 0 % (0-2) Band Neutrophils 0 % (0-8) Platelet Estimate Adequate Platelet Morphology Normal Anisocytosis 1+ Urine Color Pale yellow Urine Appearance Clear Urine pH 5 (4.5-8.0) Urine Specific [place] 1.015 (1.005-1.035) Urine Protein 3+ (NEGATIVE) H Urine Glucose (UA) Negative (NEGATIVE) Urine Ketones Negative (NEGATIVE) Urine Blood 3+ (NEGATIVE) H Urine Nitrite Negative (NEGATIVE) Urine Bilirubin Negative (NEGATIVE) Urine Urobilinogen Normal MG/DL (0.0-1.0) Urine Leukocyte Esterase Negative (NEGATIVE) Urine RBC 2-4 /HPF (0 - 0) H Urine WBC 0-2 /HPF (0 - 0) Urine Squamous Epithelial Cells Occasional /LPF Urine Amorphous Sediment Few /LPF (NONE) H Urine Bacteria Few /HPF (NONE) Urine Mucus Few /LPF (NONE/OCC) H Sodium Level 154 MMOL/L (136-145) H Potassium Level 4.4 MMOL/L (3.5-5.1) Chloride Level 117 MMOL/L (98-107) H Carbon Dioxide Level 27 MMOL/L (21-32) Anion Gap 10 mmol/L (5-15) Blood Urea Nitrogen 71 mg/dL (7-18) H Creatinine 2.2 MG/DL (0.55-1.30) H Estimat Glomerular Filtration Rate mL/min (>60) Glucose Level 102 MG/DL (74-106) Hemoglobin A1c 7.6 % (4.3-6.0) H Lactic Acid Level 1.10 mmol/L (0.4-2.0) Calcium Level 9.6 MG/DL (8.5-10.1) Phosphorus Level 4.1 MG/DL (2.5-4.9) Magnesium Level 2.5 MG/DL (1.8-2.4) H Total Bilirubin 0.4 MG/DL (0.2-1.0) Aspartate Amino Transf (AST/SGOT) 63 U/L (15-37) H Alanine Aminotransferase (ALT/SGPT) 102 U/L (12-78) H Alkaline Phosphatase 164 U/L (46-116) H Total Creatine Kinase 978 U/L (26-308) H Troponin I 0.000 ng/mL (0.000-0.056) Total Protein 8.6 G/DL (6.4-8.2) H Albumin 2.5 G/DL (3.4-5.0) L Globulin 6.1 g/dL Albumin/Globulin Ratio 0.4 (1.0-2.7) L General Appearance: no apparent distress Head: normocephalic Neck: supple Respiratory: normal breath sounds Cardiovascular: normal rate, regular rhythm Gastrointestinal: soft Rectal: deferred Current Medications Current Medications Medications (Trade) Dose Ordered Sig/Jared Route PRN Reason Start Time Stop Time Status Last Admin Dose Admin Dextrose 1,000 ml @ 100 mls/hr Q10H IV 10/20/18 16:00 11/19/18 15:59 10/20/18 16:32 Dextrose (Dextrose 50%) 25 ml Q30M PRN IV Hypoglycemia 10/20/18 16:30 11/19/18 16:29 Dextrose (Dextrose 50%) 50 ml Q30M PRN IV Hypoglycemia 10/20/18 16:30 11/19/18 16:29 GI: Plan Problems: (1) Malfunction of percutaneous endoscopic gastrostomy (PEG) tube (2) GERD (gastroesophageal reflux disease) (3) diverting colostomy Plan Plan to replace NGT by bedside, central supply to deliver GT. We will order imaging confirmation for placement Okay to start feedings after imaging confirmation per registered dietitian PRN transfusions PPI We will follow with additional recommendations Discussed with Dr. Ochoa. Thank you for this patient referral, we will follow. The patient was seen and examined at bedside and all new and available data was reviewed in the patients chart. I agree with the above findings, impression and plan. (Patient seen earlier today. Signature stamp does not reflect patient encounter time.). - MD Fatmata Blankenship,[facility] HospitalMichael [employer] Oct 20, 2018 17:14
[2018-10-20 20:00] VITALS: BP 136/71
--- NOTE | 2018-10-20 23:45 | History and Physical Report ---
DATE OF ADMISSION: 10/20/2018 HISTORY OF PRESENT ILLNESS: The patient is aphasic, which is from previous strokes. Cannot get reliable history from the patient. The patient is admitted for multiple reasons namely electrolyte imbalance, hypernatremia, dehydration, acute renal failure on top of chronic renal failure, elevated LFTs. The patient has G-tube, also has a temporary Noble for time being. The patient cannot be fixed due to previous aspirations. Admitted also to rule out sepsis. 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 PAST SURGICAL HISTORY: Megacolon surgery, history of colostomy, history of PEG. ALLERGIES: No known allergies. MEDICATIONS: Diltiazem, benazepril, , insulin, multivitamin, potassium. ALLERGIES: No known allergies. FAMILY HISTORY: No history of alcohol or illicit drugs. Comes from a correction. REVIEW OF SYSTEMS: The patient is a poor historian. Possible expressive aphasia. Very hard to get any history from the patient. PHYSICAL EXAMINATION: VITAL SIGNS: Temperature 97, pulse is 90, blood pressure is 110/64. HEENT: PERRLA. NECK: Supple. No lymphadenopathy. CHEST: Clear to auscultation. CARDIOVASCULAR: Regular rate and rhythm. ABDOMEN: Does have temporary Noble and G-tube. Noble intact. Has colostomy intact. Abdomen is distended. EXTREMITIES: 1+ edema. Reflexes equal on both sides. Has lower extremity weakness, which is chronic. NEUROLOGIC: Oriented to name. LABORATORY DATA: WBC of 18.8, hemoglobin 11.4, platelets 325. Sodium 154, potassium 4.4, BUN of 27, creatinine 3.2, glucose 191. AST of 62, ALT of 102. ASSESSMENT AND PLAN: Elevated LFTs, acute renal failure on top of chronic renal failure, sepsis, electrolyte imbalance, dehydration. I have asked basically Dr. Hoyos, Dr. Ochoa, Dr. Cheo Bhagat to help with management of the above-mentioned diagnoses. Rene Sin M.D. DR: EMILE JOB#: [id number] CC:
[2018-10-21] VITALS: BP 147/89
[2018-10-21 05:10] VITALS: BP 147/86
[2018-10-21 07:11] LABS: EOSINOPHILS % (AUTO) 2.9 % (0.0-3.0); HEMATOCRIT 37.6 % (42.0-52.0); HEMOGLOBIN 11.4 G/DL (14.2-18.0); MEAN CORPUSCULAR VOLUME 89 FL (80-99); MONOCYTES % (AUTO) 5.8 % (1.0-10.0); NEUTROPHILS % (AUTO) 74.3 % (45.0-75.0); PLATELET COUNT 207 K/UL (150-450); RED BLOOD COUNT 4.24 M/UL (4.70-6.10); RED CELL DISTRIBUTION WIDTH 19.8 % (11.6-14.8); WHITE BLOOD COUNT 9.8 K/UL (4.8-10.8)
[2018-10-21 07:27] LABS: ALANINE AMINOTRANSFERASE 80 U/L (12-78); ALBUMIN 2.5 G/DL (3.4-5.0); ALBUMIN/GLOBULIN RATIO 0.4 (1.0-2.7); ALKALINE PHOSPHATASE 147 U/L (46-116); ANION GAP 8 mmol/L (5-15); ASPARTATE AMINO TRANSFERASE 48 U/L (15-37); BILIRUBIN,TOTAL 0.5 MG/DL (0.2-1.0); BLOOD UREA NITROGEN 64 mg/dL (7-18); CALCIUM 8.9 MG/DL (8.5-10.1); CARBON DIOXIDE 25 MMOL/L (21-32); CHLORIDE 115 MMOL/L (98-107); CREATININE 2.1 MG/DL (0.55-1.30); PHOSPHORUS 2.8 MG/DL (2.5-4.9); POTASSIUM 3.9 MMOL/L (3.5-5.1); SODIUM 148 MMOL/L (136-145)
[2018-10-21] MEDS: cefTRIAXone 1 GM in D5W 55 ML IVPB SCH (08:13)
[2018-10-21 12:00] VITALS: BP 121/68
--- NOTE | 2018-10-21 12:37 | GI Progress Note ---
Assessment/Plan Problems: (1) PEG (percutaneous endoscopic gastrostomy) status ICD Codes: Z93.1 - Gastrostomy status SNOMED: 972825841, 467187707 (2) GERD (gastroesophageal reflux disease) ICD Codes: K21.9 - GERD (gastroesophageal reflux disease) SNOMED: 841808164 (3) Anemia ICD Codes: D64.9 - Anemia SNOMED: 052566340 (4) diverting colostomy (5) Malfunction of percutaneous endoscopic gastrostomy (PEG) tube ICD Codes: K94.23 - Gastrostomy malfunction SNOMED: 354004534 Status: progressing Status Narrative Discussed with Dr. Ochoa. Assessment/Plan GT 18french replaced at bedside, cxr for placement confirmation okay for TF once imaging confirmation noted TF's per RD prn transfusions ppi electrolyte correction follow labs The patient was seen and examined at bedside and all new and available data was reviewed in the patients chart. I agree with the above findings, impression and plan. (Patient seen earlier today. Signature stamp does not reflect patient encounter time.). - Abner Ochoa MD Subjective Subjective limited Objective Last 24 Hour Vital Signs Date Time Temp Pulse Resp B/P (MAP) Pulse Ox O2 Delivery O2 Flow Rate FiO2 10/21/18 12:00 98.0 90 20 121/68 (85) 94 10/21/18 09:00 Room Air 10/21/18 05:10 96.9 89 20 147/86 (106) 95 10/21/18 00:00 98.1 92 19 147/89 (108) 95 10/20/18 21:00 Room Air 10/20/18 20:00 97.3 78 20 136/71 (92) 97 10/20/18 18:28 Room Air 10/20/18 16:00 97.4 90 18 152/88 (109) 98 10/20/18 14:55 97.0 93 14 121/79 99 Room Air Intake and Output 10/20/18 10/21/18 19:00 07:00 Intake Total 700 ml 1200 ml Output Total 100 ml Balance 700 ml 1100 ml Intake IV Total 700 ml 1200 ml Output Stool Total 100 ml Laboratory Tests Test 10/21/18 06:34 White Blood Count 9.8 K/UL (4.8-10.8) Red Blood Count 4.24 M/UL (4.70-6.10) L Hemoglobin 11.4 G/DL (14.2-18.0) L Hematocrit 37.6 % (42.0-52.0) L Mean Corpuscular Volume 89 FL (80-99) Mean Corpuscular Hemoglobin 26.8 PG (27.0-31.0) L Mean Corpuscular Hemoglobin Concent 30.2 G/DL (32.0-36.0) L Red Cell Distribution Width 19.8 % (11.6-14.8) H Platelet Count 207 K/UL (150-450) Mean Platelet Volume 7.4 FL (6.5-10.1) Neutrophils (%) (Auto) 74.3 % (45.0-75.0) Lymphocytes (%) (Auto) 16.0 % (20.0-45.0) L Monocytes (%) (Auto) 5.8 % (1.0-10.0) Eosinophils (%) (Auto) 2.9 % (0.0-3.0) Basophils (%) (Auto) 1.0 % (0.0-2.0) Sodium Level 148 MMOL/L (136-145) H Potassium Level 3.9 MMOL/L (3.5-5.1) Chloride Level 115 MMOL/L (98-107) H Carbon Dioxide Level 25 MMOL/L (21-32) Anion Gap 8 mmol/L (5-15) Blood Urea Nitrogen 64 mg/dL (7-18) H Creatinine 2.1 MG/DL (0.55-1.30) H Estimat Glomerular Filtration Rate mL/min (>60) Glucose Level 200 MG/DL (74-106) H Uric Acid 7.5 MG/DL (2.6-7.2) H Calcium Level 8.9 MG/DL (8.5-10.1) Phosphorus Level 2.8 MG/DL (2.5-4.9) Magnesium Level 2.4 MG/DL (1.8-2.4) Total Bilirubin 0.5 MG/DL (0.2-1.0) Aspartate Amino Transf (AST/SGOT) 48 U/L (15-37) H Alanine Aminotransferase (ALT/SGPT) 80 U/L (12-78) H Alkaline Phosphatase 147 U/L (46-116) H C-Reactive Protein, Quantitative 10.5 mg/dL (0.00-0.90) H Pro-B-Type Natriuretic Peptide 1614 pg/mL (0-125) H Total Protein 8.2 G/DL (6.4-8.2) Albumin 2.5 G/DL (3.4-5.0) L Globulin 5.7 g/dL Albumin/Globulin Ratio 0.4 (1.0-2.7) L Thyroid Stimulating Hormone (TSH) 2.319 uiU/mL (0.358-3.740) Height (Feet): 5 Height (Inches): 6.00 Weight (Pounds): 152 Ligia Avilezh-Michael VIRK Oct 21, 2018 12:37
[2018-10-21] MEDS ORDERED: Gastrograffin 30ml ORAL ONE (12:45)
--- NOTE | 2018-10-21 12:48 | Nephrology Progress Note ---
Assessment/Plan Problem List: (1) CRI (chronic renal insufficiency) (2) Hypernatremia (3) Hypoalbuminemia (4) S/P colostomy (5) PEG (percutaneous endoscopic gastrostomy) status Assessment WBC lower, now WNL Na lowering on D5w LFTs lowering Cr 2.1 stable (1) Renal failure (ARF), acute on chronic (2) h/o HTN (hypertension) (3) h/o DM (diabetes mellitus) (4) h/o Pneumonia (5) Hypoalbuminemia (6) Hypernatremia (7) S/P colostomy (8) PEG (percutaneous endoscopic gastrostomy) status Plan continue D5w cont per GI monitor lytes and renal parameters Subjective ROS Limited/Unobtainable: No Objective Objective Last 24 Hour Vital Signs Date Time Temp Pulse Resp B/P (MAP) Pulse Ox O2 Delivery O2 Flow Rate FiO2 10/21/18 12:00 98.0 90 20 121/68 (85) 94 10/21/18 09:00 Room Air 10/21/18 05:10 96.9 89 20 147/86 (106) 95 10/21/18 00:00 98.1 92 19 147/89 (108) 95 10/20/18 21:00 Room Air 10/20/18 20:00 97.3 78 20 136/71 (92) 97 10/20/18 18:28 Room Air 10/20/18 16:00 97.4 90 18 152/88 (109) 98 10/20/18 14:55 97.0 93 14 121/79 99 Room Air Intake and Output 10/20/18 10/21/18 19:00 07:00 Intake Total 700 ml 1200 ml Output Total 100 ml Balance 700 ml 1100 ml Intake IV Total 700 ml 1200 ml Output Stool Total 100 ml Laboratory Tests 10/21/18 06:34: White Blood Count 9.8, Red Blood Count 4.24L, Hemoglobin 11.4L, Hematocrit 37.6L , Mean Corpuscular Volume 89, Mean Corpuscular Hemoglobin 26.8L, Mean Corpuscular Hemoglobin Concent 30.2L, Red Cell Distribution Width 19.8H, Platelet Count 207, Mean Platelet Volume 7.4, Neutrophils (%) (Auto) 74.3, Lymphocytes (%) (Auto) 16.0L, Monocytes (%) (Auto) 5.8, Eosinophils (%) (Auto) 2.9, Basophils (%) (Auto) 1.0, Sodium Level 148H, Potassium Level 3.9, Chloride Level 115H, Carbon Dioxide Level 25, Anion Gap 8, Blood Urea Nitrogen 64H, Creatinine 2.1H, Estimat Glomerular Filtration Rate , Glucose Level 200H, Uric Acid 7.5H, Calcium Level 8.9, Phosphorus Level 2.8, Magnesium Level 2.4, Total Bilirubin 0.5, Aspartate Amino Transf (AST/SGOT) 48H, Alanine Aminotransferase ( ALT/SGPT) 80H, Alkaline Phosphatase 147H, C-Reactive Protein, Quantitative 10.5H , Pro-B-Type Natriuretic Peptide 1614H, Total Protein 8.2, Albumin 2.5L, Globulin 5.7, Albumin/Globulin Ratio 0.4L, Thyroid Stimulating Hormone (TSH) 2.319 Height (Feet): 5 Height (Inches): 6.00 Weight (Pounds): 152 General Appearance: no apparent distress, confused Cardiovascular: normal rate Respiratory/Chest: decreased breath sounds Abdomen: soft, other - colostomy Gregorio Hoyos MD Oct 21, 2018 12:47
--- NOTE | 2018-10-21 12:56 | Consultation ---
History of Present Illness General Date patient seen: Oct 21, 2018 Reason for Hospitalization: Malfunctioning Gastric Tube Present Illness HPI 82-year-old male with history of chronic renal failure, hypertension, dementia, dysphagia status post PEG tube, diverting ostomy, anemia, GERD presents for evaluation of dislodged G-tube, inability to feed for several days and possibly worsening renal function as well as hypoglycemia. Unclear when the patient's PEG tube was dislodged however the nursing facility was able to place a 16 Swazi Noble to maintain a patent ostomy. They have been unable to feed him and concerned about his renal function given his limited intake. The patient is nonverbal though can nod and appears to understand. Patient is well known to me from prior admissions and residential visits where I have cared for his colostomy. Prior we have considered takedown but his condition has deteriorated over time and have not been able to proceed. He now also has decubitus wounds on admission currently requiring further care and management. Surgery called to evaluate and assist with care. PMH: Chronic kidney disease, hypertension, dementia, dysphasia, anemia, GERD PSH: Colostomy, PEG tube Allergies: None listed Social Hx: Unable to obtain Allergies: Coded Allergies: No Known Allergies (Verified , 12/29/06) Medication History Scheduled Diltiazem Hcl* (Cardizem*), 30 MG GT Q8HR, (Reported) Donepezil Hcl* (Donepezil Hcl*), 5 MG GT DAILY, (Reported) Dorzolamide Hcl/Timolol Maleat (Cosopt Eye Drops), 1 DROP BOTH EYES BID, ( Reported) Insulin Aspart (Novolog Flexpen), 6 UNITS SQ BIDAC, (Reported) Insulin Detemir (Levemir), 30 UNITS SUBQ QHS, (Reported) Insulin Detemir (Levemir Flexpen), 75 UNITS SUBQ DAILY, (Reported) Multivitamin Liquid* (Multi-Delyn*), 5 ML GT DAILY, (Reported) Potassium Chloride (Potassium Chloride), 20 MEQ GT DAILY, (Reported) Discontinued Medications Acetaminophen (Tylenol), 650 MG GT Q6HR PRN for Mild Pain/Temp > 100.5, ( Reported) Discontinued Reason: Pt stopped taking med Guaifenesin/Dextromethorphan (Robitussin Cough-Chest Dm Liq), 10 ML GT Q8HR PRN for For Cough, (Reported) Discontinued Reason: Pt stopped taking med Ipratropium/Albuterol Sulfate (DuoNeb 0.5-3(2.5)mg/3ml), 3 ML HHN Q6HR PRN for Shortness of Breath, (Reported) Discontinued Reason: Pt stopped taking med Levofloxacin* (Levaquin*), 250 MG GT DAILY, (Reported) Discontinued Reason: Pt stopped taking med Patient History Limited by: medical condition History Provided By: Patient, Medical Record, PMD Healthcare decision maker Resuscitation status Full Code Advanced Directive on File Past Medical/Surgical History Past Medical/Surgical History: (1) BiPAP (biphasic positive airway pressure) dependence (2) Abdominal pain (3) CVA (cerebral infarction) (4) Oxygen desaturation (5) Hypertensive urgency (6) Acute hypoxemic respiratory failure (7) Diverticulitis (8) Sepsis (9) Hypoalbuminemia (10) Renal failure (ARF), acute on chronic (11) HTN (hypertension) (12) DM (diabetes mellitus) (13) Hypernatremia (14) CRI (chronic renal insufficiency) (15) CKD (chronic kidney disease) (16) Malfunction of percutaneous endoscopic gastrostomy (PEG) tube (17) Anemia (18) GERD (gastroesophageal reflux disease) (19) diverting colostomy Review of Systems Review of Symptoms General ROS: no weight loss or fever Psychological ROS: no depression or mood changes, no memory loss Ophthalmic ROS: no visual changes or eye irritation ENT ROS: no nasal congestion, hearing loss, dizziness Allergy and Immunology ROS: no allergic symptoms or urticaria Hematological and Lymphatic ROS: no swollen glands, unusual bleeding or bruising Endocrine ROS: no polyuria, polydipsia, weight changes, temperature intolerance Respiratory ROS: no cough, shortness of breath, or wheezing Cardiovascular ROS: no chest pain or dyspnea on exertion Gastrointestinal ROS: denies abdominal pain, no bright red blood in stool. Musculoskeletal ROS: no myalgias or arthralgias Neurological ROS: no TIA or stroke symptoms Dermatological ROS: no new or changing skin lesions, rashes or pruritis Physical Exam Physical Exam General appearance: alert, cooperative, no distress, appears stated age Head: Normocephalic, without obvious abnormality, atraumatic Eyes: conjunctivae/corneas clear. PERRL, EOM's intact. Fundi benign Throat: Lips, mucosa, and tongue normal. Teeth and gums normal Neck: supple, symmetrical, trachea midline, no adenopathy, thyroid: not enlarged, symmetric, no tenderness/mass/nodules, no carotid bruit and no JVD Lungs: clear to auscultation bilaterally Heart: regular rate and rhythm, S1, S2 normal, no murmur, click, rub or gallop Abdomen: soft, non-tender. Bowel sounds normal. No masses, no organomegaly, colostomy, peg tube Extremities: extremities normal, atraumatic, no cyanosis or edema Pulses: 2+ and symmetric Skin: Skin color, texture, turgor normal. No rashes or lesions Neurologic: Grossly normal Last 24 Hour Vital Signs Date Time Temp Pulse Resp B/P (MAP) Pulse Ox O2 Delivery O2 Flow Rate FiO2 10/21/18 12:00 98.0 90 20 121/68 (85) 94 10/21/18 09:00 Room Air 10/21/18 05:10 96.9 89 20 147/86 (106) 95 10/21/18 00:00 98.1 92 19 147/89 (108) 95 10/20/18 21:00 Room Air 10/20/18 20:00 97.3 78 20 136/71 (92) 97 10/20/18 18:28 Room Air 10/20/18 16:00 97.4 90 18 152/88 (109) 98 10/20/18 14:55 97.0 93 14 121/79 99 Room Air Intake and Output 10/20/18 10/21/18 19:00 07:00 Intake Total 700 ml 1200 ml Output Total 100 ml Balance 700 ml 1100 ml Intake IV Total 700 ml 1200 ml Output Stool Total 100 ml Laboratory Tests Test 10/21/18 06:34 White Blood Count 9.8 K/UL (4.8-10.8) Red Blood Count 4.24 M/UL (4.70-6.10) L Hemoglobin 11.4 G/DL (14.2-18.0) L Hematocrit 37.6 % (42.0-52.0) L Mean Corpuscular Volume 89 FL (80-99) Mean Corpuscular Hemoglobin 26.8 PG (27.0-31.0) L Mean Corpuscular Hemoglobin Concent 30.2 G/DL (32.0-36.0) L Red Cell Distribution Width 19.8 % (11.6-14.8) H Platelet Count 207 K/UL (150-450) Mean Platelet Volume 7.4 FL (6.5-10.1) Neutrophils (%) (Auto) 74.3 % (45.0-75.0) Lymphocytes (%) (Auto) 16.0 % (20.0-45.0) L Monocytes (%) (Auto) 5.8 % (1.0-10.0) Eosinophils (%) (Auto) 2.9 % (0.0-3.0) Basophils (%) (Auto) 1.0 % (0.0-2.0) Sodium Level 148 MMOL/L (136-145) H Potassium Level 3.9 MMOL/L (3.5-5.1) Chloride Level 115 MMOL/L (98-107) H Carbon Dioxide Level 25 MMOL/L (21-32) Anion Gap 8 mmol/L (5-15) Blood Urea Nitrogen 64 mg/dL (7-18) H Creatinine 2.1 MG/DL (0.55-1.30) H Estimat Glomerular Filtration Rate mL/min (>60) Glucose Level 200 MG/DL (74-106) H Uric Acid 7.5 MG/DL (2.6-7.2) H Calcium Level 8.9 MG/DL (8.5-10.1) Phosphorus Level 2.8 MG/DL (2.5-4.9) Magnesium Level 2.4 MG/DL (1.8-2.4) Total Bilirubin 0.5 MG/DL (0.2-1.0) Aspartate Amino Transf (AST/SGOT) 48 U/L (15-37) H Alanine Aminotransferase (ALT/SGPT) 80 U/L (12-78) H Alkaline Phosphatase 147 U/L (46-116) H C-Reactive Protein, Quantitative 10.5 mg/dL (0.00-0.90) H Pro-B-Type Natriuretic Peptide 1614 pg/mL (0-125) H Total Protein 8.2 G/DL (6.4-8.2) Albumin 2.5 G/DL (3.4-5.0) L Globulin 5.7 g/dL Albumin/Globulin Ratio 0.4 (1.0-2.7) L Thyroid Stimulating Hormone (TSH) 2.319 uiU/mL (0.358-3.740) Height (Feet): 5 Height (Inches): 6.00 Weight (Pounds): 152 Medications Current Medications Medications (Trade) Dose Ordered Sig/Jared Route PRN Reason Start Time Stop Time Status Last Admin Dose Admin Ceftriaxone Sodium 1 gm/ Dextrose 55 ml @ 110 mls/hr Q24H IVPB 10/21/18 08:00 10/28/18 07:59 10/21/18 08:13 Dextrose 1,000 ml @ 100 mls/hr Q10H IV 10/20/18 16:00 11/19/18 15:59 10/21/18 02:34 Dextrose (Dextrose 50%) 25 ml Q30M PRN IV Hypoglycemia 10/20/18 16:30 11/19/18 16:29 Dextrose (Dextrose 50%) 50 ml Q30M PRN IV Hypoglycemia 10/20/18 16:30 11/19/18 16:29 Diatrizoate Meglum/ Diatrizoate Sod (Gastrografin) 30 ml ONCE ONCE ORAL 10/21/18 12:45 10/21/18 12:46 Assessment/Plan Problem List: (1) diverting colostomy Assessment & Plan: Hx of diverting colostomy. has considered takedown int he past but unfortunately patient has deteriorated and unable to proceed ostomy with hernia but stable ostomy viable with output will cont to monitor (2) Abdominal pain Assessment & Plan: okay for diet via feeding tube as per GI nutritional support as needs it DAILY ESTIMATED NEEDS: Needs based on DM, renal dysfunction, wound/ 64kg abw 25-30 kcals/kg 2328-9924 total kcals 1-1.5 g protein/kg 64-96 g total protein 25-30 mL/kg 3042-8929 total fluid mLs NUTRITION DIAGNOSIS: * Swallowing difficulty R/T dysphagia, decreased cognitive fxn as evidenced by pt is GT dependent * Altered nutrition related lab values R/T renal dysfunction, diabetes, dehydration as evidenced by elev creat (2.1), elev BGs (200, 102), A1C of 7.6, elev Na (148). * Increased kcal/prot/micronutrients needs R/T wound healing as evidenced by pt admitted w/ sacral wound, stage 1 per RN. 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 * HOB over 30 degrees/ water flush per MD. ADDITIONAL RECOMMENDATIONS: * Per SNF, ht=5'5" [id number] (09/23/18) -> bedscale wt on 10/21=69.3kg (152.4 lbs) * Monitor lytes dailly, replete as needed * Rec to continue SINGLE WIRE SAW OPERATOR TF of Nepro to maintain electrolytes wnl. * Monitor BGs, need for long acting insulin (pt on Levemir SINGLE WIRE SAW OPERATOR) * Wound healing: add MVI x1, Vit C 250mg QD : add Mahendra 1pkt BID ICD Codes: R10.9 - Unspecified abdominal pain SNOMED: 61700972 (3) Malfunction of percutaneous endoscopic gastrostomy (PEG) tube ICD Codes: K94.23 - Gastrostomy malfunction SNOMED: 046194061 (4) Parastomal hernia Assessment & Plan: has been present for some time and stable unfortunately cannot repair or takedown now will monitor ICD Codes: K43.5 - Parastomal hernia without obstruction or gangrene SNOMED: 726086287 Praveen Traylor Oct 21, 2018 12:56
--- NOTE | 2018-10-21 13:46 | CDS Physician Query ---
Clarification is required for compliance, coding accuracy, and to reflect severity of illness for this patient Dear Gregorio Crowley MD Date: 10/21/2018 Master Glazier/CDS Name: Vincent Dukes Please select the most appropriate option: Progress Notes documented: Hypoalbuminemia Labs: Alb: 2.5 [] Protein/Calorie Malnutrition [] Mild [] Moderate [] Severe [] Hypoalbuminemia [] Cachexia [] Underweight [] Intestinal malabsorption [] Other [] Unable to determine [] Not Applicable Present on Admission: [] Yes [] No [] Clinically Undetermined Physician signature Date Please also document in your Progress Notes and/or Discharge Summary and indicate if the condition was present on admission. MTDD
--- NOTE | 2018-10-21 14:16 | Diagnostic Imaging Report ---
Indication: Reason For Exam: TUBE PLCMT Technique: One view of the chest Comparison: 09/05/2018 Findings: Reticulonodular interstitial opacities are again demonstrated in the right mid and upper lung. There is suggestion of increased atelectasis and possibly patchy airspace opacities at the right lung base. Interim development of patchy airspace opacities in the left perihilar region as well. The pleural spaces are clear. The heart is upper limits normal in size Impression: Left perihilar patchy infiltrates, right basilar infiltrates and/or atelectasis, new since prior study 09/05/2018 Right upper lobe interstitial opacities, suspect chronic given similarity to the previous exam.
[2018-10-21 16:00] VITALS: BP 122/69
--- NOTE | 2018-10-21 16:49 | Diagnostic Imaging Report ---
Indication: Status post gastrostomy replacement Technique: Supine view of the abdomen after injection of water-soluble contrast into gastrostomy Comparison: 09/08/2018 Findings: Contrast opacifies the stomach. No contrast extravasation is demonstrated. The bowel gas pattern is unremarkable. Again demonstrated is evidence of possible rectal fecal impaction, possibly somewhat improved Impression: Satisfactory position of gastrostomy tube
--- NOTE | 2018-10-21 17:00 | Consultation ---
DATE OF CONSULTATION: 10/21/2018 INFECTIOUS DISEASE CONSULTATION CONSULTING PHYSICIAN: Cheo Bhagat M.D. PRIMARY ATTENDING PHYSICIAN: Rene Sin M.D. REASON FOR CONSULT: Leukocytosis. HISTORY OF PRESENT ILLNESS: The patient is an 82-year-old white male admitted yesterday from a nursing facility because of G-tube malfunctioning. The patient's G-tube was dislodged and nursing facility put a 16-Divehi Noble catheter to maintain the patient's osteotomy. They were unable to feed him and concerned about decreased intake. At the time of admission, he had leukocytosis of 18,000. Prior to admission, he had a hypoglycemic episode. Today, the patient's G-tube was changed at the bedside. The patient is not a source of history. PAST MEDICAL HISTORY: Significant for diabetes mellitus, hypertension, anemia, dementia, CHF, status post G-tube placement, and status post colostomy. The patient also has chronic kidney disease. ALLERGIES: No known drug allergies. MEDICATIONS: He is getting ceftriaxone. SOCIAL HISTORY: detention resident. No history of alcohol, drug abuse, or smoking. REVIEW OF SYSTEMS: Unobtainable. PHYSICAL EXAMINATION: VITAL SIGNS: Temperature 98, pulse 90, and blood pressure 121/68. GENERAL APPEARANCE: No acute distress. HEAD AND NECK: Dry mouth. HEART: Normal rate. LUNGS: Clear. ABDOMEN: G-tube in place. Has a colostomy and scar of midline surgery. EXTREMITIES: He has no edema. LABORATORY AND DIAGNOSTIC DATA: WBC today is 9.8 coming down from 18.8, hemoglobin 11.4, hematocrit 37.6, and platelets 207,000. Sodium 148 and at the time of admission was 154, potassium 3.9, BUN 64, and creatinine 3.1. Glucose 200. Hemoglobin A1c 7.6. Elevated transaminase, AST 48, ALT 80, and alkaline phosphatase 147. CK at the time of admission was 978. Albumin is 2.5. IMPRESSION: Leukocytosis, resolved. The patient had malfunctioning G-tube that was changed, diabetes mellitus, hypertension, dementia, hypernatremia, and rhabdomyolysis. RECOMMENDATION: Continue Rocephin. If the patient remained stable and has good functional G-tube, may stop antibiotic soon. At the end of my exam, I thank Dr. Sin for involving me in the care of this patient. Cheo Bhagat M.D. DR: KATJA JOB#: [id number] CC:
--- NOTE | 2018-10-21 20:22 | General Progress Note ---
Assessment/Plan Problem List: (1) CVA (cerebral infarction) ICD Codes: I63.9 - CVA (cerebral infarction) SNOMED: 472481927 (2) HTN (hypertension) ICD Codes: I10 - HTN (hypertension) SNOMED: 24460557 (3) Hypernatremia ICD Codes: E87.0 - Hyperosmolality and hypernatremia SNOMED: 213442161 (4) diverting colostomy (5) Malfunction of percutaneous endoscopic gastrostomy (PEG) tube ICD Codes: K94.23 - Gastrostomy malfunction SNOMED: 656177801 (6) CKD (chronic kidney disease) ICD Codes: N18.9 - Chronic kidney disease, unspecified SNOMED: 370995850 (7) DM (diabetes mellitus) ICD Codes: E11.9 - DM (diabetes mellitus) SNOMED: 92766338 (8) Renal failure (ARF), acute on chronic ICD Codes: N17.9 - Acute kidney failure, unspecified; N18.9 - Chronic kidney disease, unspecified SNOMED: 418826923 Status: progressing Assessment/Plan: s/p exchange of peg sepsis leukocytosis afebrile niddm arf on top of cri Subjective ROS Limited/Unobtainable: Yes Allergies: Coded Allergies: No Known Allergies (Verified , 12/29/06) Objective Last 24 Hour Vital Signs Date Time Temp Pulse Resp B/P (MAP) Pulse Ox O2 Delivery O2 Flow Rate FiO2 10/21/18 16:00 97.7 84 20 122/69 (86) 95 10/21/18 12:00 98.0 90 20 121/68 (85) 94 10/21/18 09:00 Room Air 10/21/18 05:10 96.9 89 20 147/86 (106) 95 10/21/18 00:00 98.1 92 19 147/89 (108) 95 10/20/18 21:00 Room Air Intake and Output 10/20/18 10/21/18 19:00 07:00 Intake Total 700 ml 1200 ml Output Total 100 ml Balance 700 ml 1100 ml IV Total 700 ml 1200 ml Stool Total 100 ml Laboratory Tests 10/21/18 06:34: White Blood Count 9.8, Red Blood Count 4.24L, Hemoglobin 11.4L, Hematocrit 37.6L , Mean Corpuscular Volume 89, Mean Corpuscular Hemoglobin 26.8L, Mean Corpuscular Hemoglobin Concent 30.2L, Red Cell Distribution Width 19.8H, Platelet Count 207, Mean Platelet Volume 7.4, Neutrophils (%) (Auto) 74.3, Lymphocytes (%) (Auto) 16.0L, Monocytes (%) (Auto) 5.8, Eosinophils (%) (Auto) 2.9, Basophils (%) (Auto) 1.0, Sodium Level 148H, Potassium Level 3.9, Chloride Level 115H, Carbon Dioxide Level 25, Anion Gap 8, Blood Urea Nitrogen 64H, Creatinine 2.1H, Estimat Glomerular Filtration Rate , Glucose Level 200H, Uric Acid 7.5H, Calcium Level 8.9, Phosphorus Level 2.8, Magnesium Level 2.4, Total Bilirubin 0.5, Aspartate Amino Transf (AST/SGOT) 48H, Alanine Aminotransferase ( ALT/SGPT) 80H, Alkaline Phosphatase 147H, C-Reactive Protein, Quantitative 10.5H , Pro-B-Type Natriuretic Peptide 1614H, Total Protein 8.2, Albumin 2.5L, Globulin 5.7, Albumin/Globulin Ratio 0.4L, Thyroid Stimulating Hormone (TSH) 2.319 10/21/18 13:00: Urine Random Sodium 34 Height (Feet): 5 Height (Inches): 6.00 Weight (Pounds): 152 Cardiovascular: normal rate Respiratory/Chest: lungs clear Rene Sin MD Oct 21, 2018 20:22
[2018-10-21 20:36] VITALS: BP 124/69
[2018-10-21] MEDS: Pantoprazole Inj IVP SCH (20:57)
[2018-10-21] MEDS: NovoLOG Insulin Flexpen SUBQ SCH (21:05)
[2018-10-22] VITALS: BP 126/78
[2018-10-22 06:09] LABS: BASOPHILS % (AUTO) 0.9 % (0.0-2.0); EOSINOPHILS % (AUTO) 4.5 % (0.0-3.0); HEMATOCRIT 32.9 % (42.0-52.0); HEMOGLOBIN 9.8 G/DL (14.2-18.0); LYMPHOCYTES % (AUTO) 15.7 % (20.0-45.0); MEAN CORPUSCULAR VOLUME 89 FL (80-99); MONOCYTES % (AUTO) 8.4 % (1.0-10.0); NEUTROPHILS % (AUTO) 70.5 % (45.0-75.0); PLATELET COUNT 199 K/UL (150-450); RED BLOOD COUNT 3.71 M/UL (4.70-6.10); RED CELL DISTRIBUTION WIDTH 18.9 % (11.6-14.8); WHITE BLOOD COUNT 10.7 K/UL (4.8-10.8)
[2018-10-22 06:28] LABS: ALANINE AMINOTRANSFERASE 60 U/L (12-78); ALBUMIN 2.3 G/DL (3.4-5.0); ALBUMIN/GLOBULIN RATIO 0.5 (1.0-2.7); ALKALINE PHOSPHATASE 132 U/L (46-116); ANION GAP 10 mmol/L (5-15); ASPARTATE AMINO TRANSFERASE 41 U/L (15-37); BILIRUBIN,TOTAL 0.3 MG/DL (0.2-1.0); BLOOD UREA NITROGEN 56 mg/dL (7-18); CALCIUM 8.1 MG/DL (8.5-10.1); CARBON DIOXIDE 23 MMOL/L (21-32); CHLORIDE 114 MMOL/L (98-107); CREATININE 2.1 MG/DL (0.55-1.30); PHOSPHORUS 2.1 MG/DL (2.5-4.9); POTASSIUM 3.4 MMOL/L (3.5-5.1); SODIUM 147 MMOL/L (136-145)
[2018-10-22] MEDS: NovoLOG Insulin Flexpen SUBQ SCH ×4 (06:30→22:35)
[2018-10-22 08:00] VITALS: BP 120/79
[2018-10-22] MEDS: cefTRIAXone 1 GM in D5W 55 ML IVPB SCH (08:08)
[2018-10-22] MEDS: Pantoprazole Inj IVP SCH (08:39)
--- NOTE | 2018-10-22 10:03 | Surgery Progress Note ---
Surgery Progress Note Subjective Additional Comments no acute events resting comfortable no n/v/f/c labs noted exam unchanged. Objective Last 24 Hour Vital Signs Date Time Temp Pulse Resp B/P (MAP) Pulse Ox O2 Delivery O2 Flow Rate FiO2 10/22/18 08:00 97.2 93 19 120/79 (93) 96 10/22/18 00:00 97.2 94 18 126/78 (94) 95 10/21/18 21:00 Room Air 10/21/18 20:36 97.3 91 18 124/69 (87) 100 10/21/18 16:00 97.7 84 20 122/69 (86) 95 10/21/18 12:00 98.0 90 20 121/68 (85) 94 I&O Intake and Output 10/21/18 10/22/18 18:59 06:59 Intake Total 1095 ml 600 ml Output Total 550 ml 350 ml Balance 545 ml 250 ml Intake Free Water 100 ml 200 ml IV Total 955 ml Tube Feeding 40 ml 400 ml Output Urine Total 400 ml Stool Total 150 ml 350 ml # Voids 2 Dressing: dry Wound: clean Abdomen: soft, non-tender, present bowel sounds, other Extremities: no cyanosis, other Laboratory Tests Test 10/21/18 13:00 10/22/18 05:15 Urine Random Sodium 34 mmol/L (20-110) White Blood Count 10.7 K/UL (4.8-10.8) Red Blood Count 3.71 M/UL (4.70-6.10) L Hemoglobin 9.8 G/DL (14.2-18.0) L Hematocrit 32.9 % (42.0-52.0) L Mean Corpuscular Volume 89 FL (80-99) Mean Corpuscular Hemoglobin 26.5 PG (27.0-31.0) L Mean Corpuscular Hemoglobin Concent 29.9 G/DL (32.0-36.0) L Red Cell Distribution Width 18.9 % (11.6-14.8) H Platelet Count 199 K/UL (150-450) Mean Platelet Volume 7.4 FL (6.5-10.1) Neutrophils (%) (Auto) 70.5 % (45.0-75.0) Lymphocytes (%) (Auto) 15.7 % (20.0-45.0) L Monocytes (%) (Auto) 8.4 % (1.0-10.0) Eosinophils (%) (Auto) 4.5 % (0.0-3.0) H Basophils (%) (Auto) 0.9 % (0.0-2.0) Sodium Level 147 MMOL/L (136-145) H Potassium Level 3.4 MMOL/L (3.5-5.1) L Chloride Level 114 MMOL/L (98-107) H Carbon Dioxide Level 23 MMOL/L (21-32) Anion Gap 10 mmol/L (5-15) Blood Urea Nitrogen 56 mg/dL (7-18) H Creatinine 2.1 MG/DL (0.55-1.30) H Estimat Glomerular Filtration Rate mL/min (>60) Glucose Level 189 MG/DL (74-106) H Uric Acid 6.8 MG/DL (2.6-7.2) Calcium Level 8.1 MG/DL (8.5-10.1) L Phosphorus Level 2.1 MG/DL (2.5-4.9) L Magnesium Level 2.1 MG/DL (1.8-2.4) Total Bilirubin 0.3 MG/DL (0.2-1.0) Aspartate Amino Transf (AST/SGOT) 41 U/L (15-37) H Alanine Aminotransferase (ALT/SGPT) 60 U/L (12-78) Alkaline Phosphatase 132 U/L (46-116) H Total Protein 7.3 G/DL (6.4-8.2) Albumin 2.3 G/DL (3.4-5.0) L Globulin 5.0 g/dL Albumin/Globulin Ratio 0.5 (1.0-2.7) L Plan Problems: (1) diverting colostomy Assessment & Plan: Hx of diverting colostomy. has considered takedown int he past but unfortunately patient has deteriorated and unable to proceed ostomy with hernia but stable ostomy viable with output will cont to monitor (2) Abdominal pain Assessment & Plan: okay for diet via feeding tube as per GI nutritional support as needs it DAILY ESTIMATED NEEDS: Needs based on DM, renal dysfunction, wound/ 64kg abw 25-30 kcals/kg 0174-5308 total kcals 1-1.5 g protein/kg 64-96 g total protein 25-30 mL/kg 4250-8919 total fluid mLs NUTRITION DIAGNOSIS: * Swallowing difficulty R/T dysphagia, decreased cognitive fxn as evidenced by pt is GT dependent * Altered nutrition related lab values R/T renal dysfunction, diabetes, dehydration as evidenced by elev creat (2.1), elev BGs (200, 102), A1C of 7.6, elev Na (148). * Increased kcal/prot/micronutrients needs R/T wound healing as evidenced by pt admitted w/ sacral wound, stage 1 per RN. 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 * HOB over 30 degrees/ water flush per MD. ADDITIONAL RECOMMENDATIONS: * Per SNF, ht=5'5" ai=933rij (09/23/18) -> bedscale wt on 10/21=69.3kg (152.4 lbs) * Monitor lytes dailly, replete as needed * Rec to continue PAYROLL ACCOUNTING CLERK TF of Nepro to maintain electrolytes wnl. 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
--- NOTE | 2018-10-22 10:03 | General Progress Note ---
Assessment/Plan Status: progressing Assessment/Plan: (1) PEG (percutaneous endoscopic gastrostomy) status ICD Codes: Z93.1 - Gastrostomy status SNOMED: 606066428, 943107529 (2) GERD (gastroesophageal reflux disease) ICD Codes: K21.9 - GERD (gastroesophageal reflux disease) SNOMED: 395889860 (3) Anemia ICD Codes: D64.9 - Anemia SNOMED: 685864594 (4) diverting colostomy (5) Malfunction of percutaneous endoscopic gastrostomy (PEG) tube ICD Codes: K94.23 - Gastrostomy malfunction SNOMED: 868644817 Status: progressing Status Narrative Assessment/Plan GT 18french replaced at bedside, cxr for placement confirmation okay for TF once imaging confirmation noted TF's per RD prn transfusions ppi electrolyte correction follow labs Subjective ROS Limited/Unobtainable: No Allergies: Coded Allergies: No Known Allergies (Verified , 12/29/06) Objective Last 24 Hour Vital Signs Date Time Temp Pulse Resp B/P (MAP) Pulse Ox O2 Delivery O2 Flow Rate FiO2 10/22/18 08:00 97.2 93 19 120/79 (93) 96 10/22/18 00:00 97.2 94 18 126/78 (94) 95 10/21/18 21:00 Room Air 10/21/18 20:36 97.3 91 18 124/69 (87) 100 10/21/18 16:00 97.7 84 20 122/69 (86) 95 10/21/18 12:00 98.0 90 20 121/68 (85) 94 Intake and Output 10/21/18 10/22/18 18:59 06:59 Intake Total 1095 ml 600 ml Output Total 550 ml 350 ml Balance 545 ml 250 ml Intake Free Water 100 ml 200 ml IV Total 955 ml Tube Feeding 40 ml 400 ml Output Urine Total 400 ml Stool Total 150 ml 350 ml # Voids 2 Laboratory Tests 10/21/18 13:00: Urine Random Sodium 34 10/22/18 05:15: White Blood Count 10.7, Red Blood Count 3.71L, Hemoglobin 9.8L, Hematocrit 32.9L , Mean Corpuscular Volume 89, Mean Corpuscular Hemoglobin 26.5L, Mean Corpuscular Hemoglobin Concent 29.9L, Red Cell Distribution Width 18.9H, Platelet Count 199, Mean Platelet Volume 7.4, Neutrophils (%) (Auto) 70.5, Lymphocytes (%) (Auto) 15.7L, Monocytes (%) (Auto) 8.4, Eosinophils (%) (Auto) 4.5H, Basophils (%) (Auto) 0.9, Sodium Level 147H, Potassium Level 3.4L, Chloride Level 114H, Carbon Dioxide Level 23, Anion Gap 10, Blood Urea Nitrogen 56H, Creatinine 2.1H, Estimat Glomerular Filtration Rate , Glucose Level 189H, Uric Acid 6.8, Calcium Level 8.1L, Phosphorus Level 2.1L, Magnesium Level 2.1, Total Bilirubin 0.3, Aspartate Amino Transf (AST/SGOT) 41H, Alanine Aminotransferase (ALT/SGPT) 60, Alkaline Phosphatase 132H, Total Protein 7.3, Albumin 2.3L, Globulin 5.0, Albumin/Globulin Ratio 0.5L Height (Feet): 5 Height (Inches): 6.00 Weight (Pounds): 152 General Appearance: no apparent distress EENT: normal ENT inspection Neck: supple Cardiovascular: normal rate Respiratory/Chest: decreased breath sounds Abdomen: normal bowel sounds, non tender, soft Extremities: non-tender Abner Ochoa MD Oct 22, 2018 10:03
[2018-10-22] MEDS ORDERED: Sodium Chloride for KCL Premix x 2hrs IV SCH (10:15)
--- NOTE | 2018-10-22 11:13 | Diagnostic Imaging Report ---
APPROVED REPORT CPT Code: 86952 Present Symptoms Comments: EDEMA BILATERAL: Imaging reveals a patent deep venous system bilaterally. There is no evidence of thrombus within the femoral, popliteal or tibial segments. The greater saphenous veins are also within normal limits. Doppler indicates normal spontaneous flow within these segments.
--- NOTE | 2018-10-22 11:35 | Infectious Diseases Prog Note ---
Assessment/Plan Assessment/Plan IMPRESSION: New pneumonia Leukocytosis, resolved. Malfunctioning G-tube was changed, diabetes mellitus, hypertension, dementia, hypernatremia, rhabdomyolysis. RECOMMENDATION: Continue Rocephin. repeat CXR in am Subjective ROS Limited/Unobtainable: Yes Gastrointestinal/Abdominal: Reports: other - restarted on tube feeding Allergies: Coded Allergies: No Known Allergies (Verified , 12/29/06) Objective Vital Signs Last 24 Hour Vital Signs Date Time Temp Pulse Resp B/P (MAP) Pulse Ox O2 Delivery O2 Flow Rate FiO2 10/22/18 09:00 Room Air 10/22/18 08:00 97.2 93 19 120/79 (93) 96 10/22/18 00:00 97.2 94 18 126/78 (94) 95 10/21/18 21:00 Room Air 10/21/18 20:36 97.3 91 18 124/69 (87) 100 10/21/18 16:00 97.7 84 20 122/69 (86) 95 10/21/18 12:00 98.0 90 20 121/68 (85) 94 Height (Feet): 5 Height (Inches): 6.00 Weight (Pounds): 152 General Appearance: no acute distress HEENT: mucous membranes moist Respiratory/Chest: lungs clear Cardiovascular: normal rate Abdomen: soft, non tender, other - GT feeding Extremities: no edema Neurologic/Psychiatric: alert, aphasia Microbiology Date/Time Source Procedure Growth Status 10/20/18 12:00 Nasal Nares MRSA Culture - Final Staphylococcus Aureus - Mrsa Complete 10/20/18 12:00 Rectum VRE Culture - Final Enterococcus Faecalis - Vre Complete 10/20/18 12:00 Rectum - Final NO CARBAPENEM-RESISTANT ENTEROBACTERI... Complete Laboratory Tests Test 10/21/18 13:00 10/22/18 05:15 10/22/18 11:15 Urine Random Sodium 34 mmol/L (20-110) White Blood Count 10.7 K/UL (4.8-10.8) Red Blood Count 3.71 M/UL (4.70-6.10) L Hemoglobin 9.8 G/DL (14.2-18.0) L Hematocrit 32.9 % (42.0-52.0) L Mean Corpuscular Volume 89 FL (80-99) Mean Corpuscular Hemoglobin 26.5 PG (27.0-31.0) L Mean Corpuscular Hemoglobin Concent 29.9 G/DL (32.0-36.0) L Red Cell Distribution Width 18.9 % (11.6-14.8) H Platelet Count 199 K/UL (150-450) Mean Platelet Volume 7.4 FL (6.5-10.1) Neutrophils (%) (Auto) 70.5 % (45.0-75.0) Lymphocytes (%) (Auto) 15.7 % (20.0-45.0) L Monocytes (%) (Auto) 8.4 % (1.0-10.0) Eosinophils (%) (Auto) 4.5 % (0.0-3.0) H Basophils (%) (Auto) 0.9 % (0.0-2.0) Sodium Level 147 MMOL/L (136-145) H Potassium Level 3.4 MMOL/L (3.5-5.1) L Chloride Level 114 MMOL/L (98-107) H Carbon Dioxide Level 23 MMOL/L (21-32) Anion Gap 10 mmol/L (5-15) Blood Urea Nitrogen 56 mg/dL (7-18) H Creatinine 2.1 MG/DL (0.55-1.30) H Estimat Glomerular Filtration Rate mL/min (>60) Glucose Level 189 MG/DL (74-106) H Uric Acid 6.8 MG/DL (2.6-7.2) Calcium Level 8.1 MG/DL (8.5-10.1) L Phosphorus Level 2.1 MG/DL (2.5-4.9) L Magnesium Level 2.1 MG/DL (1.8-2.4) Total Bilirubin 0.3 MG/DL (0.2-1.0) Aspartate Amino Transf (AST/SGOT) 41 U/L (15-37) H Alanine Aminotransferase (ALT/SGPT) 60 U/L (12-78) Alkaline Phosphatase 132 U/L (46-116) H Total Protein 7.3 G/DL (6.4-8.2) Albumin 2.3 G/DL (3.4-5.0) L Globulin 5.0 g/dL Albumin/Globulin Ratio 0.5 (1.0-2.7) L Stool Occult Blood Pending Current Medications Medications (Trade) Dose Ordered Sig/Jared Route PRN Reason Start Time Stop Time Status Last Admin Dose Admin Ceftriaxone Sodium 1 gm/ Dextrose 55 ml @ 110 mls/hr Q24H IVPB 10/21/18 08:00 10/28/18 07:59 10/22/18 08:08 Dextrose (Dextrose 50%) 25 ml Q30M PRN IV Hypoglycemia 10/21/18 18:00 11/20/18 17:59 Dextrose (Dextrose 50%) 50 ml Q30M PRN IV Hypoglycemia 10/21/18 18:00 11/20/18 17:59 Insulin Aspart (NovoLOG) BEFORE MEALS AND HS SUBQ 10/21/18 21:00 11/20/18 20:59 10/22/18 06:30 Pantoprazole (Protonix) 40 mg EVERY 12 HOURS IVP 10/21/18 21:00 11/20/18 20:59 10/22/18 08:39 Potassium Chloride 100 ml @ 100 mls/hr Q1HR IVPB 10/22/18 11:00 10/22/18 12:59 10/22/18 10:27 Sodium Chloride 200 ml @ 100 mls/hr Q2H IV 10/22/18 10:15 10/22/18 12:14 Cheo Bhagat MD Oct 22, 2018 11:35
[2018-10-22 12:00] VITALS: BP 127/84
--- NOTE | 2018-10-22 12:17 | Nephrology Progress Note ---
Assessment/Plan Problem List: (1) CRI (chronic renal insufficiency) Assessment: Cr stable (2) Hypernatremia (3) Hypoalbuminemia (4) S/P colostomy (5) PEG (percutaneous endoscopic gastrostomy) status Assessment WBC lower, now WNL Na lowering on D5w LFTs lowering Cr 2.1 stable (1) Renal failure (ARF), acute on chronic (2) h/o HTN (hypertension) (3) h/o DM (diabetes mellitus) (4) h/o Pneumonia (5) Hypoalbuminemia (6) Hypernatremia (7) S/P colostomy (8) PEG (percutaneous endoscopic gastrostomy) status Plan now on feeding Cr stable cont per GI monitor lytes and renal parameters Subjective ROS Limited/Unobtainable: No Constitutional: Reports: malaise, weakness Objective Objective Last 24 Hour Vital Signs Date Time Temp Pulse Resp B/P (MAP) Pulse Ox O2 Delivery O2 Flow Rate FiO2 10/22/18 09:00 Room Air 10/22/18 08:00 97.2 93 19 120/79 (93) 96 10/22/18 00:00 97.2 94 18 126/78 (94) 95 10/21/18 21:00 Room Air 10/21/18 20:36 97.3 91 18 124/69 (87) 100 10/21/18 16:00 97.7 84 20 122/69 (86) 95 Intake and Output 10/21/18 10/22/18 19:00 07:00 Intake Total 1095 ml 600 ml Output Total 550 ml 350 ml Balance 545 ml 250 ml Intake Free Water 100 ml 200 ml IV Total 955 ml Tube Feeding 40 ml 400 ml Output Urine Total 400 ml Stool Total 150 ml 350 ml # Voids 2 Laboratory Tests 10/21/18 13:00: Urine Random Sodium 34 10/22/18 05:15: White Blood Count 10.7, Red Blood Count 3.71L, Hemoglobin 9.8L, Hematocrit 32.9L , Mean Corpuscular Volume 89, Mean Corpuscular Hemoglobin 26.5L, Mean Corpuscular Hemoglobin Concent 29.9L, Red Cell Distribution Width 18.9H, Platelet Count 199, Mean Platelet Volume 7.4, Neutrophils (%) (Auto) 70.5, Lymphocytes (%) (Auto) 15.7L, Monocytes (%) (Auto) 8.4, Eosinophils (%) (Auto) 4.5H, Basophils (%) (Auto) 0.9, Sodium Level 147H, Potassium Level 3.4L, Chloride Level 114H, Carbon Dioxide Level 23, Anion Gap 10, Blood Urea Nitrogen 56H, Creatinine 2.1H, Estimat Glomerular Filtration Rate , Glucose Level 189H, Uric Acid 6.8, Calcium Level 8.1L, Phosphorus Level 2.1L, Magnesium Level 2.1, Total Bilirubin 0.3, Aspartate Amino Transf (AST/SGOT) 41H, Alanine Aminotransferase (ALT/SGPT) 60, Alkaline Phosphatase 132H, Total Protein 7.3, Albumin 2.3L, Globulin 5.0, Albumin/Globulin Ratio 0.5L 10/22/18 11:15: Stool Occult Blood [Pending] Height (Feet): 5 Height (Inches): 6.00 Weight (Pounds): 152 General Appearance: no apparent distress, confused Respiratory/Chest: decreased breath sounds Abdomen: distended, other - GT now functional Gregorio Hoyos MD Oct 22, 2018 12:17
[2018-10-22 16:00] VITALS: BP 130/81
--- NOTE | 2018-10-22 18:30 | Consultation ---
DATE OF CONSULTATION: 10/22/2018 ENDOCRINOLOGY CONSULTATION CONSULTING PHYSICIAN: Juan Carlos Lu M.D. REFERRING PHYSICIAN: Rene Sin M.D. REASON FOR CONSULTATION: Diabetes management. HISTORY OF PRESENT ILLNESS: Reported to note that history is obtained from review of the chart and medical records since the patient is aphasic. The patient has a history of stroke, made him aphasic. Admitted due to multiple reasons, electrolyte imbalance, hypernatremia, dehydration, acute renal failure, and elevated LFTs. The patient has a G-tube, nonverbal, and glucose is elevated. Endocrinology was consulted in order to assist in the management of diabetes. PAST MEDICAL HISTORY: 1. CVA with residual expressive aphasia. 2. Hypertension. 3. Diverticulosis of megacolon. 4. Chronic kidney disease. 5. Hypertension. 6. GERD. 7. Anemia. 8. Diabetes. 9. Organic brain syndrome. 10. Glaucoma. PAST SURGICAL HISTORY: 1. G-tube placement. 2. Megacolon surgery. 3. Colostomy. ALLERGIES TO MEDICATIONS: None. MEDICATIONS: Reviewed and reconciled. FAMILY HISTORY: Noncontributory. SOCIAL HISTORY: From long term. REVIEW OF SYSTEMS: Unobtainable. PHYSICAL EXAMINATION: GENERAL: The patient is aphasic. VITAL SIGNS: Blood pressure is 110/64, heart rate 60, pulse rate of 80, temperature of 98. HEENT: Pupils reactive to light. Sclerae anicteric. NECK: No JVD. HEART: Regular. LUNGS: Decreased breath sounds. ABDOMEN: G-tube noted. LABORATORY DATA: WBC 10.7, hemoglobin 9.8, hematocrit 32.9, platelets of 199. Sodium 147, potassium 3.4, chloride 114, bicarb 23, BUN 56, creatinine 2.1. DIAGNOSES: 1. Electrolyte disturbances. 2. Sepsis. 3. Dysphagia. 4. Diabetes out of control. PLAN: 1. Start blood glucose monitoring every 6 hours. 2. NovoLog sliding scale for coverage. 3. Basal insulin will be added according to the blood glucose values. I will follow the patient closely during hospital stay. Thank you, Dr. Sin, for the courtesy of this consultation. Juan Carlos Lu M.D. DR: JANNA JOB#: [id number] CC:
[2018-10-22 20:00] VITALS: BP 125/60
--- NOTE | 2018-10-22 21:09 | General Progress Note ---
Assessment/Plan Problem List: (1) CVA (cerebral infarction) ICD Codes: I63.9 - CVA (cerebral infarction) SNOMED: 399191936 (2) HTN (hypertension) ICD Codes: I10 - HTN (hypertension) SNOMED: 63795150 (3) Hypernatremia ICD Codes: E87.0 - Hyperosmolality and hypernatremia SNOMED: 179904424 (4) diverting colostomy (5) Malfunction of percutaneous endoscopic gastrostomy (PEG) tube ICD Codes: K94.23 - Gastrostomy malfunction SNOMED: 857188113 (6) CKD (chronic kidney disease) ICD Codes: N18.9 - Chronic kidney disease, unspecified SNOMED: 615696829 (7) DM (diabetes mellitus) ICD Codes: E11.9 - DM (diabetes mellitus) SNOMED: 69601751 (8) Renal failure (ARF), acute on chronic ICD Codes: N17.9 - Acute kidney failure, unspecified; N18.9 - Chronic kidney disease, unspecified SNOMED: 237206199 Status: progressing Assessment/Plan: s/p exchange of peg sepsis leukocytosis afebrile niddm arf on top of cri colostomy labs are normalized aphasic Subjective ROS Limited/Unobtainable: Yes Allergies: Coded Allergies: No Known Allergies (Verified , 12/29/06) Objective Last 24 Hour Vital Signs Date Time Temp Pulse Resp B/P (MAP) Pulse Ox O2 Delivery O2 Flow Rate FiO2 10/22/18 16:00 98.0 99 19 130/81 (97) 98 10/22/18 12:00 98.0 95 20 127/84 (98) 97 10/22/18 09:00 Room Air 10/22/18 08:00 97.2 93 19 120/79 (93) 96 10/22/18 00:00 97.2 94 18 126/78 (94) 95 Intake and Output 10/21/18 10/22/18 19:00 07:00 Intake Total 1095 ml 600 ml Output Total 550 ml 350 ml Balance 545 ml 250 ml Intake Free Water 100 ml 200 ml IV Total 955 ml Tube Feeding 40 ml 400 ml Output Urine Total 400 ml Stool Total 150 ml 350 ml # Voids 2 Laboratory Tests 10/22/18 05:15: White Blood Count 10.7, Red Blood Count 3.71L, Hemoglobin 9.8L, Hematocrit 32.9L , Mean Corpuscular Volume 89, Mean Corpuscular Hemoglobin 26.5L, Mean Corpuscular Hemoglobin Concent 29.9L, Red Cell Distribution Width 18.9H, Platelet Count 199, Mean Platelet Volume 7.4, Neutrophils (%) (Auto) 70.5, Lymphocytes (%) (Auto) 15.7L, Monocytes (%) (Auto) 8.4, Eosinophils (%) (Auto) 4.5H, Basophils (%) (Auto) 0.9, Sodium Level 147H, Potassium Level 3.4L, Chloride Level 114H, Carbon Dioxide Level 23, Anion Gap 10, Blood Urea Nitrogen 56H, Creatinine 2.1H, Estimat Glomerular Filtration Rate , Glucose Level 189H, Uric Acid 6.8, Calcium Level 8.1L, Phosphorus Level 2.1L, Magnesium Level 2.1, Total Bilirubin 0.3, Aspartate Amino Transf (AST/SGOT) 41H, Alanine Aminotransferase (ALT/SGPT) 60, Alkaline Phosphatase 132H, Total Protein 7.3, Albumin 2.3L, Globulin 5.0, Albumin/Globulin Ratio 0.5L 10/22/18 11:15: Stool Occult Blood [Pending] Height (Feet): 5 Height (Inches): 6.00 Weight (Pounds): 152 Cardiovascular: regular rhythm Respiratory/Chest: lungs clear Abdomen: soft Rene Sin MD Oct 22, 2018 21:09
[2018-10-23] VITALS: BP 130/85
[2018-10-23] MEDS: NovoLOG Insulin Flexpen SUBQ SCH ×4 (06:42→21:08)
--- NOTE | 2018-10-23 07:02 | General Progress Note ---
Assessment/Plan Status: progressing Assessment/Plan: (1) PEG (percutaneous endoscopic gastrostomy) status ICD Codes: Z93.1 - Gastrostomy status SNOMED: 568459745, 640796841 (2) GERD (gastroesophageal reflux disease) ICD Codes: K21.9 - GERD (gastroesophageal reflux disease) SNOMED: 684803351 (3) Anemia ICD Codes: D64.9 - Anemia SNOMED: 356894952 (4) diverting colostomy (5) Malfunction of percutaneous endoscopic gastrostomy (PEG) tube ICD Codes: K94.23 - Gastrostomy malfunction SNOMED: 120897700 Status: progressing Status Narrative Assessment/Plan GT 18french replaced at bedside TF's per RD prn transfusions ppi electrolyte correction follow labs fu stool ob Subjective ROS Limited/Unobtainable: Yes Allergies: Coded Allergies: No Known Allergies (Verified , 12/29/06) Objective Last 24 Hour Vital Signs Date Time Temp Pulse Resp B/P (MAP) Pulse Ox O2 Delivery O2 Flow Rate FiO2 10/23/18 00:00 97.6 81 20 130/85 (100) 96 10/23/18 00:00 97.6 81 20 130/85 (100) 96 10/22/18 21:00 Room Air 10/22/18 20:00 97.7 77 18 125/60 (81) 98 10/22/18 16:00 98.0 99 19 130/81 (97) 98 10/22/18 12:00 98.0 95 20 127/84 (98) 97 10/22/18 09:00 Room Air 10/22/18 08:00 97.2 93 19 120/79 (93) 96 Intake and Output 10/22/18 10/23/18 18:59 06:59 Intake Total 140 ml Output Total 350 ml Balance -210 ml Intake Free Water 100 ml Tube Feeding 40 ml Stool Total 350 ml # Voids 4 Laboratory Tests 10/22/18 11:15: Stool Occult Blood [Pending] 10/23/18 05:50: White Blood Count [Pending], Red Blood Count [Pending], Hemoglobin [Pending], Hematocrit [Pending], Mean Corpuscular Volume [Pending], Mean Corpuscular Hemoglobin [Pending], Mean Corpuscular Hemoglobin Concent [Pending], Red Cell Distribution Width [Pending], Platelet Count [Pending], Mean Platelet Volume [ Pending], Neutrophils (%) (Auto) [Pending], Lymphocytes (%) (Auto) [Pending], Monocytes (%) (Auto) [Pending], Eosinophils (%) (Auto) [Pending], Basophils (%) (Auto) [Pending], Sodium Level [Pending], Potassium Level [Pending], Chloride Level [Pending], Carbon Dioxide Level [Pending], Blood Urea Nitrogen [Pending], Creatinine [Pending], Estimat Glomerular Filtration Rate [Pending], Glucose Level [Pending], Calcium Level [Pending], Total Bilirubin [Pending], Aspartate Amino Transf (AST/SGOT) [Pending], Alanine Aminotransferase (ALT/SGPT) [Pending] , Alkaline Phosphatase [Pending], Total Protein [Pending], Albumin [Pending], Globulin [Pending] Height (Feet): 5 Height (Inches): 6.00 Weight (Pounds): 152 General Appearance: alert EENT: normal ENT inspection Neck: supple Cardiovascular: normal rate Respiratory/Chest: decreased breath sounds Abdomen: normal bowel sounds, non tender, soft Extremities: non-tender Abner Ochoa MD Oct 23, 2018 07:02
[2018-10-23 07:31] LABS: ALANINE AMINOTRANSFERASE 52 U/L (12-78); ALBUMIN 2.2 G/DL (3.4-5.0); ALBUMIN/GLOBULIN RATIO 0.4 (1.0-2.7); ALKALINE PHOSPHATASE 152 U/L (46-116); ANION GAP 9 mmol/L (5-15); ASPARTATE AMINO TRANSFERASE 30 U/L (15-37); BILIRUBIN,TOTAL 0.2 MG/DL (0.2-1.0); BLOOD UREA NITROGEN 51 mg/dL (7-18); CALCIUM 8.5 MG/DL (8.5-10.1); CARBON DIOXIDE 24 MMOL/L (21-32); CHLORIDE 115 MMOL/L (98-107); CREATININE 2.1 MG/DL (0.55-1.30); POTASSIUM 3.6 MMOL/L (3.5-5.1); SODIUM 148 MMOL/L (136-145)
[2018-10-23 07:32] LABS: BASOPHILS % (AUTO) 0.9 % (0.0-2.0); EOSINOPHILS % (AUTO) 9.1 % (0.0-3.0); HEMATOCRIT 28.7 % (42.0-52.0); HEMOGLOBIN 8.8 G/DL (14.2-18.0); LYMPHOCYTES % (AUTO) 16.5 % (20.0-45.0); MEAN CORPUSCULAR VOLUME 88 FL (80-99); MONOCYTES % (AUTO) 7.1 % (1.0-10.0); NEUTROPHILS % (AUTO) 66.4 % (45.0-75.0); PLATELET COUNT 203 K/UL (150-450); RED BLOOD COUNT 3.27 M/UL (4.70-6.10); RED CELL DISTRIBUTION WIDTH 18.8 % (11.6-14.8); WHITE BLOOD COUNT 9.9 K/UL (4.8-10.8)
[2018-10-23 08:00] VITALS: BP 148/73
--- NOTE | 2018-10-23 08:21 | Diagnostic Imaging Report ---
EXAM: XR Chest, 1 View CLINICAL HISTORY: INFECT TECHNIQUE: Frontal view of the chest. COMPARISON: Chest x-ray dated 10/21/18 FINDINGS: Lungs: No significant change in the reticular interstitial opacities in bilateral lungs and subsegmental atelectasis in the right lung base. Pleural space: Unremarkable. The costophrenic angles are sharp. No visible pneumothorax. Heart: Unremarkable. No cardiomegaly. Mediastinum: Unremarkable. Bones/joints: Unremarkable. Vasculature: Atherosclerotic calcifications are noted within the aortic arch. IMPRESSION: No significant interval change compared to the prior chest x-ray. Persistent reticular interstitial opacities in bilateral lungs and subsegmental atelectasis in the right lung base.
[2018-10-23] MEDS: cefTRIAXone 1 GM in D5W 55 ML IVPB SCH (08:44)
--- NOTE | 2018-10-23 09:34 | Nephrology Progress Note ---
Assessment/Plan Problem List: (1) CRI (chronic renal insufficiency) Assessment: Cr stable (2) Hypernatremia (3) Hypoalbuminemia (4) S/P colostomy (5) PEG (percutaneous endoscopic gastrostomy) status Assessment WBC lower, now WNL Na lowering on D5w LFTs lowering Cr 2.1 stable (1) Renal failure (ARF), acute on chronic (2) h/o HTN (hypertension) (3) h/o DM (diabetes mellitus) (4) h/o Pneumonia (5) Hypoalbuminemia (6) Hypernatremia (7) S/P colostomy (8) PEG (percutaneous endoscopic gastrostomy) status Plan now on feeding Cr stable cont per GI monitor lytes and renal parameters Subjective ROS Limited/Unobtainable: No Constitutional: Reports: malaise Objective Objective Last 24 Hour Vital Signs Date Time Temp Pulse Resp B/P (MAP) Pulse Ox O2 Delivery O2 Flow Rate FiO2 10/23/18 08:00 98.2 88 20 148/73 (98) 98 10/23/18 00:00 97.6 81 20 130/85 (100) 96 10/23/18 00:00 97.6 81 20 130/85 (100) 96 10/22/18 21:00 Room Air 10/22/18 20:00 97.7 77 18 125/60 (81) 98 10/22/18 16:00 98.0 99 19 130/81 (97) 98 10/22/18 12:00 98.0 95 20 127/84 (98) 97 Intake and Output 10/22/18 10/23/18 18:59 06:59 Intake Total 140 ml Output Total 350 ml Balance -210 ml Intake Free Water 100 ml Tube Feeding 40 ml Stool Total 350 ml # Voids 4 Laboratory Tests 10/22/18 11:15: Stool Occult Blood [Pending] 10/23/18 05:50: White Blood Count 9.9, Red Blood Count 3.27L, Hemoglobin 8.8L, Hematocrit 28.7L , Mean Corpuscular Volume 88, Mean Corpuscular Hemoglobin 26.9L, Mean Corpuscular Hemoglobin Concent 30.7L, Red Cell Distribution Width 18.8H, Platelet Count 203, Mean Platelet Volume 7.0, Neutrophils (%) (Auto) 66.4, Lymphocytes (%) (Auto) 16.5L, Monocytes (%) (Auto) 7.1, Eosinophils (%) (Auto) 9.1H, Basophils (%) (Auto) 0.9, Sodium Level 148H, Potassium Level 3.6, Chloride Level 115H, Carbon Dioxide Level 24, Anion Gap 9, Blood Urea Nitrogen 51H, Creatinine 2.1H, Estimat Glomerular Filtration Rate , Glucose Level 195H, Calcium Level 8.5, Total Bilirubin 0.2, Aspartate Amino Transf (AST/SGOT) 30, Alanine Aminotransferase (ALT/SGPT) 52, Alkaline Phosphatase 152H, Total Protein 7.6, Albumin 2.2L, Globulin 5.4, Albumin/Globulin Ratio 0.4L Height (Feet): 5 Height (Inches): 6.00 Weight (Pounds): 152 General Appearance: no apparent distress Objective no change Gregorio Hoyos MD Oct 23, 2018 09:34
--- NOTE | 2018-10-23 10:42 | General Progress Note ---
Assessment/Plan Problem List: (1) CKD (chronic kidney disease) ICD Codes: N18.9 - Chronic kidney disease, unspecified SNOMED: 292865073 (2) HTN (hypertension) ICD Codes: I10 - HTN (hypertension) SNOMED: 75990988 (3) CVA (cerebral infarction) ICD Codes: I63.9 - CVA (cerebral infarction) SNOMED: 753611926 (4) DM (diabetes mellitus) ICD Codes: E11.9 - DM (diabetes mellitus) SNOMED: 35989347 (5) CRI (chronic renal insufficiency) ICD Codes: N18.9 - CRI (chronic renal insufficiency) SNOMED: 477157496 Status: progressing Assessment/Plan: no need for basal insulin for now continue NISS Subjective Allergies: Coded Allergies: No Known Allergies (Verified , 12/29/06) Subjective events noted fair glucose value Item Value Date Time Bedside Blood Glucose 198 mg/dl H 10/23/18 0642 Bedside Blood Glucose 168 mg/dl H 10/22/18 2235 Bedside Blood Glucose 195 mg/dl H 10/22/18 1626 Bedside Blood Glucose 103 mg/dl 10/22/18 1130 Bedside Blood Glucose 182 mg/dl H 10/22/18 0630 Objective Last 24 Hour Vital Signs Date Time Temp Pulse Resp B/P (MAP) Pulse Ox O2 Delivery O2 Flow Rate FiO2 10/23/18 08:00 98.2 88 20 148/73 (98) 98 10/23/18 00:00 97.6 81 20 130/85 (100) 96 10/23/18 00:00 97.6 81 20 130/85 (100) 96 10/22/18 21:00 Room Air 10/22/18 20:00 97.7 77 18 125/60 (81) 98 10/22/18 16:00 98.0 99 19 130/81 (97) 98 10/22/18 12:00 98.0 95 20 127/84 (98) 97 Intake and Output 10/22/18 10/23/18 18:59 06:59 Intake Total 140 ml Output Total 350 ml Balance -210 ml Intake Free Water 100 ml Tube Feeding 40 ml Stool Total 350 ml # Voids 4 Laboratory Tests 10/22/18 11:15: Stool Occult Blood [Pending] 10/23/18 05:50: White Blood Count 9.9, Red Blood Count 3.27L, Hemoglobin 8.8L, Hematocrit 28.7L , Mean Corpuscular Volume 88, Mean Corpuscular Hemoglobin 26.9L, Mean Corpuscular Hemoglobin Concent 30.7L, Red Cell Distribution Width 18.8H, Platelet Count 203, Mean Platelet Volume 7.0, Neutrophils (%) (Auto) 66.4, Lymphocytes (%) (Auto) 16.5L, Monocytes (%) (Auto) 7.1, Eosinophils (%) (Auto) 9.1H, Basophils (%) (Auto) 0.9, Sodium Level 148H, Potassium Level 3.6, Chloride Level 115H, Carbon Dioxide Level 24, Anion Gap 9, Blood Urea Nitrogen 51H, Creatinine 2.1H, Estimat Glomerular Filtration Rate , Glucose Level 195H, Calcium Level 8.5, Total Bilirubin 0.2, Aspartate Amino Transf (AST/SGOT) 30, Alanine Aminotransferase (ALT/SGPT) 52, Alkaline Phosphatase 152H, Total Protein 7.6, Albumin 2.2L, Globulin 5.4, Albumin/Globulin Ratio 0.4L Height (Feet): 5 Height (Inches): 6.00 Weight (Pounds): 152 General Appearance: no apparent distress Neck: normal alignment Cardiovascular: normal rate Respiratory/Chest: decreased breath sounds Abdomen: normal bowel sounds Objective Current Medications Medications (Trade) Dose Ordered Sig/Jared Route PRN Reason Start Time Stop Time Status Last Admin Dose Admin Ceftriaxone Sodium 1 gm/ Dextrose 55 ml @ 110 mls/hr Q24H IVPB 10/21/18 08:00 10/28/18 07:59 10/23/18 08:44 Dextrose (Dextrose 50%) 25 ml Q30M PRN IV Hypoglycemia 10/21/18 18:00 11/20/18 17:59 Dextrose (Dextrose 50%) 50 ml Q30M PRN IV Hypoglycemia 10/21/18 18:00 11/20/18 17:59 Insulin Aspart (NovoLOG) BEFORE MEALS AND HS SUBQ 10/21/18 21:00 11/20/18 20:59 10/23/18 06:42 Lansoprazole (Prevacid) 30 mg BID GT 10/22/18 18:00 11/21/18 17:59 10/23/18 08:44 Juan Carlos Lu MD Oct 23, 2018 10:41
--- NOTE | 2018-10-23 18:29 | Surgery Progress Note ---
Surgery Progress Note Subjective Additional Comments no acute events exam unchanged comfortable in bed bryson in place urine clear labs improved Objective Last 24 Hour Vital Signs Date Time Temp Pulse Resp B/P (MAP) Pulse Ox O2 Delivery O2 Flow Rate FiO2 10/23/18 09:00 Room Air 10/23/18 08:00 98.2 88 20 148/73 (98) 98 10/23/18 00:00 97.6 81 20 130/85 (100) 96 10/23/18 00:00 97.6 81 20 130/85 (100) 96 10/22/18 21:00 Room Air 10/22/18 20:00 97.7 77 18 125/60 (81) 98 I&O Intake and Output 10/22/18 10/23/18 19:00 07:00 Intake Total 140 ml Output Total 350 ml Balance -210 ml Intake Free Water 100 ml Tube Feeding 40 ml Stool Total 350 ml # Voids 4 Dressing: saturated Wound: other Drains: other Cardiovascular: RSR, other Respiratory: clear Abdomen: soft, present bowel sounds, other Extremities: no cyanosis Laboratory Tests Test 10/23/18 05:50 White Blood Count 9.9 K/UL (4.8-10.8) Red Blood Count 3.27 M/UL (4.70-6.10) L Hemoglobin 8.8 G/DL (14.2-18.0) L Hematocrit 28.7 % (42.0-52.0) L Mean Corpuscular Volume 88 FL (80-99) Mean Corpuscular Hemoglobin 26.9 PG (27.0-31.0) L Mean Corpuscular Hemoglobin Concent 30.7 G/DL (32.0-36.0) L Red Cell Distribution Width 18.8 % (11.6-14.8) H Platelet Count 203 K/UL (150-450) Mean Platelet Volume 7.0 FL (6.5-10.1) Neutrophils (%) (Auto) 66.4 % (45.0-75.0) Lymphocytes (%) (Auto) 16.5 % (20.0-45.0) L Monocytes (%) (Auto) 7.1 % (1.0-10.0) Eosinophils (%) (Auto) 9.1 % (0.0-3.0) H Basophils (%) (Auto) 0.9 % (0.0-2.0) Sodium Level 148 MMOL/L (136-145) H Potassium Level 3.6 MMOL/L (3.5-5.1) Chloride Level 115 MMOL/L (98-107) H Carbon Dioxide Level 24 MMOL/L (21-32) Anion Gap 9 mmol/L (5-15) Blood Urea Nitrogen 51 mg/dL (7-18) H Creatinine 2.1 MG/DL (0.55-1.30) H Estimat Glomerular Filtration Rate mL/min (>60) Glucose Level 195 MG/DL (74-106) H Calcium Level 8.5 MG/DL (8.5-10.1) Total Bilirubin 0.2 MG/DL (0.2-1.0) Aspartate Amino Transf (AST/SGOT) 30 U/L (15-37) Alanine Aminotransferase (ALT/SGPT) 52 U/L (12-78) Alkaline Phosphatase 152 U/L (46-116) H Total Protein 7.6 G/DL (6.4-8.2) Albumin 2.2 G/DL (3.4-5.0) L Globulin 5.4 g/dL Albumin/Globulin Ratio 0.4 (1.0-2.7) L Plan Problems: (1) diverting colostomy Assessment & Plan: Hx of diverting colostomy. has considered takedown int he past but unfortunately patient has deteriorated and unable to proceed ostomy with hernia but stable ostomy viable with output will cont to monitor (2) Abdominal pain Assessment & Plan: okay for diet via feeding tube as per GI nutritional support as needs it DAILY ESTIMATED NEEDS: Needs based on DM, renal dysfunction, wound/ 64kg abw 25-30 kcals/kg 0334-2922 total kcals 1-1.5 g protein/kg 64-96 g total protein 25-30 mL/kg 3409-2992 total fluid mLs NUTRITION DIAGNOSIS: * Swallowing difficulty R/T dysphagia, decreased cognitive fxn as evidenced by pt is GT dependent * Altered nutrition related lab values R/T renal dysfunction, diabetes, dehydration as evidenced by elev creat (2.1), elev BGs (200, 102), A1C of 7.6, elev Na (148). * Increased kcal/prot/micronutrients needs R/T wound healing as evidenced by pt admitted w/ sacral wound, stage 1 per RN. CURRENT TF:NPO ENTERAL NUTRITION RECOMMENDATIONS: Nepro @ 40ml/hr x 24 hrs to provide 960ml, 1728kcal, 77g prot, 698ml free water * Pt on Nepro [employer], rec to maintain Nepro to keep electrolytes wnl * S/p GT replacement, initiate Nepro @ 20ml/hr x 6 hrs, advance 10ml q 4-6 hrs as tolerated to goal rate. * HOB over 30 degrees/ water flush per MD. ADDITIONAL RECOMMENDATIONS: * Per SNF, ht=5'5" zp=961scs (09/23/18) -> bedscale wt on 10/21=69.3kg (152.4 lbs) * Monitor lytes dailly, replete as needed * Rec to continue [employer] TF of Nepro to maintain electrolytes wnl. * Monitor BGs, need for long acting insulin (pt on Levemir [employer]) * Wound healing: add MVI x1, Vit C 250mg QD : add Mahendra 1pkt BID (3) Malfunction of percutaneous endoscopic gastrostomy (PEG) tube (4) Parastomal hernia Assessment & Plan: has been present for some time and stable unfortunately cannot repair or takedown now will monitor Praveen Traylor Oct 23, 2018 18:29
[2018-10-23 20:00] VITALS: BP 147/75
--- NOTE | 2018-10-23 22:08 | General Progress Note ---
Assessment/Plan Problem List: (1) CVA (cerebral infarction) ICD Codes: I63.9 - CVA (cerebral infarction) SNOMED: 294679902 (2) HTN (hypertension) ICD Codes: I10 - HTN (hypertension) SNOMED: 00081499 (3) Hypernatremia ICD Codes: E87.0 - Hyperosmolality and hypernatremia SNOMED: 591470482 (4) diverting colostomy (5) Malfunction of percutaneous endoscopic gastrostomy (PEG) tube ICD Codes: K94.23 - Gastrostomy malfunction SNOMED: 586065212 (6) CKD (chronic kidney disease) ICD Codes: N18.9 - Chronic kidney disease, unspecified SNOMED: 847379082 (7) DM (diabetes mellitus) ICD Codes: E11.9 - DM (diabetes mellitus) SNOMED: 30663009 (8) Renal failure (ARF), acute on chronic ICD Codes: N17.9 - Acute kidney failure, unspecified; N18.9 - Chronic kidney disease, unspecified SNOMED: 931388607 Status: progressing Assessment/Plan: sepsis is improving s/p exchange of peg afebrile niddm arf on top of cri is improving colostomy labs are normalized aphasic Subjective ROS Limited/Unobtainable: Yes Allergies: Coded Allergies: No Known Allergies (Verified , 12/29/06) Objective Last 24 Hour Vital Signs Date Time Temp Pulse Resp B/P (MAP) Pulse Ox O2 Delivery O2 Flow Rate FiO2 10/23/18 09:00 Room Air 10/23/18 08:00 98.2 88 20 148/73 (98) 98 10/23/18 00:00 97.6 81 20 130/85 (100) 96 10/23/18 00:00 97.6 81 20 130/85 (100) 96 Intake and Output 10/22/18 10/23/18 19:00 07:00 Intake Total 140 ml 40 ml Output Total 350 ml Balance -210 ml 40 ml Intake Free Water 100 ml Tube Feeding 40 ml 40 ml Stool Total 350 ml # Voids 4 Laboratory Tests 10/23/18 05:50: White Blood Count 9.9, Red Blood Count 3.27L, Hemoglobin 8.8L, Hematocrit 28.7L , Mean Corpuscular Volume 88, Mean Corpuscular Hemoglobin 26.9L, Mean Corpuscular Hemoglobin Concent 30.7L, Red Cell Distribution Width 18.8H, Platelet Count 203, Mean Platelet Volume 7.0, Neutrophils (%) (Auto) 66.4, Lymphocytes (%) (Auto) 16.5L, Monocytes (%) (Auto) 7.1, Eosinophils (%) (Auto) 9.1H, Basophils (%) (Auto) 0.9, Sodium Level 148H, Potassium Level 3.6, Chloride Level 115H, Carbon Dioxide Level 24, Anion Gap 9, Blood Urea Nitrogen 51H, Creatinine 2.1H, Estimat Glomerular Filtration Rate , Glucose Level 195H, Calcium Level 8.5, Total Bilirubin 0.2, Aspartate Amino Transf (AST/SGOT) 30, Alanine Aminotransferase (ALT/SGPT) 52, Alkaline Phosphatase 152H, Total Protein 7.6, Albumin 2.2L, Globulin 5.4, Albumin/Globulin Ratio 0.4L Height (Feet): 5 Height (Inches): 6.00 Weight (Pounds): 152 Cardiovascular: regular rhythm Respiratory/Chest: lungs clear Abdomen: soft Rene Sin MD Oct 23, 2018 22:08
[2018-10-24 04:17] VITALS: BP 122/62
[2018-10-24] MEDS: NovoLOG Insulin Flexpen SUBQ SCH ×4 (06:41→21:39)
--- NOTE | 2018-10-24 06:48 | General Progress Note ---
Assessment/Plan Status: progressing Assessment/Plan: (1) PEG (percutaneous endoscopic gastrostomy) status ICD Codes: Z93.1 - Gastrostomy status SNOMED: 497986079, 300352689 (2) GERD (gastroesophageal reflux disease) ICD Codes: K21.9 - GERD (gastroesophageal reflux disease) SNOMED: 233880065 (3) Anemia ICD Codes: D64.9 - Anemia SNOMED: 690615028 (4) diverting colostomy (5) Malfunction of percutaneous endoscopic gastrostomy (PEG) tube ICD Codes: K94.23 - Gastrostomy malfunction SNOMED: 381543120 Status: progressing Status Narrative Assessment/Plan GT 18french replaced at bedside TF's per RD prn transfusions ppi electrolyte correction follow labs fu stool ob Subjective ROS Limited/Unobtainable: Yes Allergies: Coded Allergies: No Known Allergies (Verified , 12/29/06) Objective Last 24 Hour Vital Signs Date Time Temp Pulse Resp B/P (MAP) Pulse Ox O2 Delivery O2 Flow Rate FiO2 10/24/18 04:17 96.8 84 18 122/62 (82) 96 10/23/18 21:00 Room Air 10/23/18 20:00 98.8 83 17 147/75 (99) 94 10/23/18 09:00 Room Air 10/23/18 08:00 98.2 88 20 148/73 (98) 98 Intake and Output 10/23/18 10/24/18 19:00 07:00 Intake Total 680 ml Output Total 550 ml Balance 130 ml Intake Free Water 200 ml Tube Feeding 480 ml Output Urine Total 550 ml # Voids 2 Height (Feet): 5 Height (Inches): 6.00 Weight (Pounds): 152 General Appearance: no apparent distress EENT: normal ENT inspection Neck: supple Cardiovascular: normal rate Respiratory/Chest: decreased breath sounds Abdomen: normal bowel sounds, non tender, soft Extremities: non-tender Abner Ochoa MD Oct 24, 2018 06:48
[2018-10-24 08:00] VITALS: BP 121/66
[2018-10-24] MEDS: cefTRIAXone 1 GM in D5W 55 ML IVPB SCH (08:41)
[2018-10-24 09:07] LABS: BASOPHILS % (AUTO) 0.6 % (0.0-2.0); EOSINOPHILS % (AUTO) 9.3 % (0.0-3.0); HEMATOCRIT 34.2 % (42.0-52.0); HEMOGLOBIN 10.2 G/DL (14.2-18.0); LYMPHOCYTES % (AUTO) 16.7 % (20.0-45.0); MEAN CORPUSCULAR VOLUME 90 FL (80-99); MONOCYTES % (AUTO) 6.3 % (1.0-10.0); NEUTROPHILS % (AUTO) 67.1 % (45.0-75.0); PLATELET COUNT 222 K/UL (150-450); RED BLOOD COUNT 3.81 M/UL (4.70-6.10); RED CELL DISTRIBUTION WIDTH 19.8 % (11.6-14.8); WHITE BLOOD COUNT 10.5 K/UL (4.8-10.8)
--- NOTE | 2018-10-24 09:20 | Nephrology Progress Note ---
Assessment/Plan Problem List: (1) CRI (chronic renal insufficiency) Assessment: Cr stable (2) Hypernatremia (3) Hypoalbuminemia (4) S/P colostomy (5) PEG (percutaneous endoscopic gastrostomy) status Assessment WBC lower, now WNL Na lowering on D5w LFTs lowering Cr 2.1 stable (1) Renal failure (ARF), acute on chronic (2) h/o HTN (hypertension) (3) h/o DM (diabetes mellitus) (4) h/o Pneumonia (5) Hypoalbuminemia (6) Hypernatremia (7) S/P colostomy (8) PEG (percutaneous endoscopic gastrostomy) status Plan todays labs pending now on feeding Cr stable cont per GI monitor lytes and renal parameters Subjective ROS Limited/Unobtainable: No Constitutional: Reports: malaise Objective Objective Last 24 Hour Vital Signs Date Time Temp Pulse Resp B/P (MAP) Pulse Ox O2 Delivery O2 Flow Rate FiO2 10/24/18 08:00 97.5 79 17 121/66 (84) 97 10/24/18 04:17 96.8 84 18 122/62 (82) 96 10/23/18 21:00 Room Air 10/23/18 20:00 98.8 83 17 147/75 (99) 94 Intake and Output 10/23/18 10/24/18 19:00 07:00 Intake Total 680 ml 640 ml Output Total 550 ml 600 ml Balance 130 ml 40 ml Intake Free Water 200 ml 200 ml Tube Feeding 480 ml 440 ml Output Urine Total 550 ml 350 ml Stool Total 250 ml # Voids 2 2 Laboratory Tests 10/24/18 05:16: White Blood Count 10.5, Red Blood Count 3.81L, Hemoglobin 10.2L, Hematocrit 34.2L, Mean Corpuscular Volume 90, Mean Corpuscular Hemoglobin 26.7L, Mean Corpuscular Hemoglobin Concent 29.7L, Red Cell Distribution Width 19.8H, Platelet Count 222, Mean Platelet Volume 7.0, Neutrophils (%) (Auto) 67.1, Lymphocytes (%) (Auto) 16.7L, Monocytes (%) (Auto) 6.3, Eosinophils (%) (Auto) 9.3H, Basophils (%) (Auto) 0.6, Sodium Level [Pending], Potassium Level [Pending ], Chloride Level [Pending], Carbon Dioxide Level [Pending], Blood Urea Nitrogen [Pending], Creatinine [Pending], Estimat Glomerular Filtration Rate [ Pending], Glucose Level [Pending], Calcium Level [Pending] Height (Feet): 5 Height (Inches): 6.00 Weight (Pounds): 152 General Appearance: no apparent distress Respiratory/Chest: decreased breath sounds Abdomen: soft Objective no change Gregorio Hoyos MD Oct 24, 2018 09:20
--- NOTE | 2018-10-24 10:03 | General Progress Note ---
Assessment/Plan Problem List: (1) CKD (chronic kidney disease) ICD Codes: N18.9 - Chronic kidney disease, unspecified SNOMED: 425574417 (2) HTN (hypertension) ICD Codes: I10 - HTN (hypertension) SNOMED: 91480951 (3) CVA (cerebral infarction) ICD Codes: I63.9 - CVA (cerebral infarction) SNOMED: 245286249 (4) DM (diabetes mellitus) ICD Codes: E11.9 - DM (diabetes mellitus) SNOMED: 44205851 (5) CRI (chronic renal insufficiency) ICD Codes: N18.9 - CRI (chronic renal insufficiency) SNOMED: 326997796 Status: progressing Assessment/Plan: add Levemir 8 units daily continue NISS Subjective ROS Limited/Unobtainable: Yes Allergies: Coded Allergies: No Known Allergies (Verified , 12/29/06) Subjective events noted glucose values on higher side Item Value Date Time Bedside Blood Glucose 221 mg/dl H 10/24/18 0641 Bedside Blood Glucose 190 mg/dl H 10/23/18 2108 Bedside Blood Glucose 117 mg/dl 10/23/18 1630 Bedside Blood Glucose 203 mg/dl H 10/23/18 1204 Bedside Blood Glucose 198 mg/dl H 10/23/18 0642 Objective Last 24 Hour Vital Signs Date Time Temp Pulse Resp B/P (MAP) Pulse Ox O2 Delivery O2 Flow Rate FiO2 10/24/18 08:00 97.5 79 17 121/66 (84) 97 10/24/18 04:17 96.8 84 18 122/62 (82) 96 10/23/18 21:00 Room Air 10/23/18 20:00 98.8 83 17 147/75 (99) 94 Intake and Output 10/23/18 10/24/18 19:00 07:00 Intake Total 680 ml 640 ml Output Total 550 ml 600 ml Balance 130 ml 40 ml Intake Free Water 200 ml 200 ml Tube Feeding 480 ml 440 ml Output Urine Total 550 ml 350 ml Stool Total 250 ml # Voids 2 2 Laboratory Tests 10/24/18 05:16: White Blood Count 10.5, Red Blood Count 3.81L, Hemoglobin 10.2L, Hematocrit 34.2L, Mean Corpuscular Volume 90, Mean Corpuscular Hemoglobin 26.7L, Mean Corpuscular Hemoglobin Concent 29.7L, Red Cell Distribution Width 19.8H, Platelet Count 222, Mean Platelet Volume 7.0, Neutrophils (%) (Auto) 67.1, Lymphocytes (%) (Auto) 16.7L, Monocytes (%) (Auto) 6.3, Eosinophils (%) (Auto) 9.3H, Basophils (%) (Auto) 0.6, Sodium Level [Pending], Potassium Level [Pending ], Chloride Level [Pending], Carbon Dioxide Level [Pending], Blood Urea Nitrogen [Pending], Creatinine [Pending], Estimat Glomerular Filtration Rate [ Pending], Glucose Level [Pending], Calcium Level [Pending] Height (Feet): 5 Height (Inches): 6.00 Weight (Pounds): 152 General Appearance: no apparent distress Neck: normal alignment Cardiovascular: normal rate Respiratory/Chest: decreased breath sounds Abdomen: normal bowel sounds Pelvis: normal external exam Objective Current Medications Medications (Trade) Dose Ordered Sig/Jared Route PRN Reason Start Time Stop Time Status Last Admin Dose Admin Ceftriaxone Sodium 1 gm/ Dextrose 55 ml @ 110 mls/hr Q24H IVPB 10/21/18 08:00 10/28/18 07:59 10/24/18 08:41 Dextrose (Dextrose 50%) 25 ml Q30M PRN IV Hypoglycemia 10/21/18 18:00 11/20/18 17:59 Dextrose (Dextrose 50%) 50 ml Q30M PRN IV Hypoglycemia 10/21/18 18:00 11/20/18 17:59 Insulin Aspart (NovoLOG) BEFORE MEALS AND HS SUBQ 10/21/18 21:00 11/20/18 20:59 10/24/18 06:41 Lansoprazole (Prevacid) 30 mg BID GT 10/22/18 18:00 11/21/18 17:59 10/24/18 08:40 Juan Carlos Lu MD Oct 24, 2018 10:03
[2018-10-24 10:16] LABS: ANION GAP 13 mmol/L (5-15); BLOOD UREA NITROGEN 50 mg/dL (7-18); CALCIUM 8.9 MG/DL (8.5-10.1); CARBON DIOXIDE 22 MMOL/L (21-32); CHLORIDE 117 MMOL/L (98-107); CREATININE 2.2 MG/DL (0.55-1.30); POTASSIUM 3.4 MMOL/L (3.5-5.1); SODIUM 152 MMOL/L (136-145)
--- NOTE | 2018-10-24 11:26 | Surgery Progress Note ---
Surgery Progress Note Subjective Additional Comments Patient seen and examined at bedside. More awake and alert. Responsive. Puts thumbs up when asked how he is doing. Labs noted. Exam stable. Objective Last 24 Hour Vital Signs Date Time Temp Pulse Resp B/P (MAP) Pulse Ox O2 Delivery O2 Flow Rate FiO2 10/24/18 09:00 Room Air 10/24/18 08:00 97.5 79 17 121/66 (84) 97 10/24/18 04:17 96.8 84 18 122/62 (82) 96 10/23/18 21:00 Room Air 10/23/18 20:00 98.8 83 17 147/75 (99) 94 I&O Intake and Output 10/23/18 10/24/18 18:59 06:59 Intake Total 680 ml 680 ml Output Total 550 ml 600 ml Balance 130 ml 80 ml Intake Free Water 200 ml 200 ml Tube Feeding 480 ml 480 ml Output Urine Total 550 ml 350 ml Stool Total 250 ml # Voids 2 2 Dressing: saturated Wound: other Drains: other Cardiovascular: RSR Respiratory: decreased breath sounds Abdomen: soft, non-tender, present bowel sounds, other Extremities: no cyanosis Laboratory Tests Test 10/24/18 05:16 White Blood Count 10.5 K/UL (4.8-10.8) Red Blood Count 3.81 M/UL (4.70-6.10) L Hemoglobin 10.2 G/DL (14.2-18.0) L Hematocrit 34.2 % (42.0-52.0) L Mean Corpuscular Volume 90 FL (80-99) Mean Corpuscular Hemoglobin 26.7 PG (27.0-31.0) L Mean Corpuscular Hemoglobin Concent 29.7 G/DL (32.0-36.0) L Red Cell Distribution Width 19.8 % (11.6-14.8) H Platelet Count 222 K/UL (150-450) Mean Platelet Volume 7.0 FL (6.5-10.1) Neutrophils (%) (Auto) 67.1 % (45.0-75.0) Lymphocytes (%) (Auto) 16.7 % (20.0-45.0) L Monocytes (%) (Auto) 6.3 % (1.0-10.0) Eosinophils (%) (Auto) 9.3 % (0.0-3.0) H Basophils (%) (Auto) 0.6 % (0.0-2.0) Sodium Level 152 MMOL/L (136-145) H Potassium Level 3.4 MMOL/L (3.5-5.1) L Chloride Level 117 MMOL/L (98-107) H Carbon Dioxide Level 22 MMOL/L (21-32) Anion Gap 13 mmol/L (5-15) Blood Urea Nitrogen 50 mg/dL (7-18) H Creatinine 2.2 MG/DL (0.55-1.30) H Estimat Glomerular Filtration Rate mL/min (>60) Glucose Level 195 MG/DL (74-106) H Calcium Level 8.9 MG/DL (8.5-10.1) Plan Problems: (1) diverting colostomy Assessment & Plan: Hx of diverting colostomy. has considered takedown int he past but unfortunately patient has deteriorated and unable to proceed ostomy with hernia but stable ostomy viable with output will cont to monitor (2) Abdominal pain Assessment & Plan: okay for diet via feeding tube as per GI nutritional support as needs it DAILY ESTIMATED NEEDS: Needs based on DM, renal dysfunction, wound/ 64kg abw 25-30 kcals/kg 6441-0032 total kcals 1-1.5 g protein/kg 64-96 g total protein 25-30 mL/kg 8014-3517 total fluid mLs NUTRITION DIAGNOSIS: * Swallowing difficulty R/T dysphagia, decreased cognitive fxn as evidenced by pt is GT dependent * Altered nutrition related lab values R/T renal dysfunction, diabetes, dehydration as evidenced by elev creat (2.1), elev BGs (200, 102), A1C of 7.6, elev Na (148). * Increased kcal/prot/micronutrients needs R/T wound healing as evidenced by pt admitted w/ sacral wound, stage 1 per RN. CURRENT TF:NPO ENTERAL NUTRITION RECOMMENDATIONS: Nepro @ 40ml/hr x 24 hrs to provide 960ml, 1728kcal, 77g prot, 698ml free water * Pt on Nepro [employer], rec to maintain Nepro to keep electrolytes wnl * S/p GT replacement, initiate Nepro @ 20ml/hr x 6 hrs, advance 10ml q 4-6 hrs as tolerated to goal rate. * HOB over 30 degrees/ water flush per MD. ADDITIONAL RECOMMENDATIONS: * Per SNF, ht=5'5" vr=073nui (09/23/18) -> bedscale wt on 10/21=69.3kg (152.4 lbs) * Monitor lytes dailly, replete as needed * Rec to continue ENTER[employer] TF of Nepro to maintain electrolytes wnl. * Monitor BGs, need for long acting insulin (pt on Levemir [employer]) * Wound healing: add MVI x1, Vit C 250mg QD : add Mahendra 1pkt BID (3) Malfunction of percutaneous endoscopic gastrostomy (PEG) tube (4) Parastomal hernia Assessment & Plan: has been present for some time and stable unfortunately cannot repair or takedown now will monitor Praveen Traylor Oct 24, 2018 11:26
[2018-10-24] MEDS: Levemir Flexpen SUBQ SCH (11:37)
[2018-10-24 12:00] VITALS: BP 142/72
--- NOTE | 2018-10-24 13:50 | Infectious Diseases Prog Note ---
Assessment/Plan Assessment/Plan IMPRESSION: Chronic lung infiltrates Leukocytosis, resolved. Malfunctioning G-tube was changed, diabetes mellitus, hypertension, dementia, hypernatremia, rhabdomyolysis. RECOMMENDATION: Discontinue Rocephin. Subjective ROS Limited/Unobtainable: Yes Constitutional: Denies: fever Allergies: Coded Allergies: No Known Allergies (Verified , 12/29/06) Objective Vital Signs Last 24 Hour Vital Signs Date Time Temp Pulse Resp B/P (MAP) Pulse Ox O2 Delivery O2 Flow Rate FiO2 10/24/18 12:00 96.8 78 20 142/72 (95) 96 10/24/18 09:00 Room Air 10/24/18 08:00 97.5 79 17 121/66 (84) 97 10/24/18 04:17 96.8 84 18 122/62 (82) 96 10/23/18 21:00 Room Air 10/23/18 20:00 98.8 83 17 147/75 (99) 94 Height (Feet): 5 Height (Inches): 6.00 Weight (Pounds): 152 General Appearance: no acute distress HEENT: mucous membranes moist Respiratory/Chest: lungs clear Cardiovascular: normal rate Abdomen: soft, non tender, other - GT feeding Extremities: no edema Neurologic/Psychiatric: other - opens eyes Laboratory Tests Test 10/24/18 05:16 White Blood Count 10.5 K/UL (4.8-10.8) Red Blood Count 3.81 M/UL (4.70-6.10) L Hemoglobin 10.2 G/DL (14.2-18.0) L Hematocrit 34.2 % (42.0-52.0) L Mean Corpuscular Volume 90 FL (80-99) Mean Corpuscular Hemoglobin 26.7 PG (27.0-31.0) L Mean Corpuscular Hemoglobin Concent 29.7 G/DL (32.0-36.0) L Red Cell Distribution Width 19.8 % (11.6-14.8) H Platelet Count 222 K/UL (150-450) Mean Platelet Volume 7.0 FL (6.5-10.1) Neutrophils (%) (Auto) 67.1 % (45.0-75.0) Lymphocytes (%) (Auto) 16.7 % (20.0-45.0) L Monocytes (%) (Auto) 6.3 % (1.0-10.0) Eosinophils (%) (Auto) 9.3 % (0.0-3.0) H Basophils (%) (Auto) 0.6 % (0.0-2.0) Sodium Level 152 MMOL/L (136-145) H Potassium Level 3.4 MMOL/L (3.5-5.1) L Chloride Level 117 MMOL/L (98-107) H Carbon Dioxide Level 22 MMOL/L (21-32) Anion Gap 13 mmol/L (5-15) Blood Urea Nitrogen 50 mg/dL (7-18) H Creatinine 2.2 MG/DL (0.55-1.30) H Estimat Glomerular Filtration Rate mL/min (>60) Glucose Level 195 MG/DL (74-106) H Calcium Level 8.9 MG/DL (8.5-10.1) Current Medications Medications (Trade) Dose Ordered Sig/Jared Route PRN Reason Start Time Stop Time Status Last Admin Dose Admin Ceftriaxone Sodium 1 gm/ Dextrose 55 ml @ 110 mls/hr Q24H IVPB 10/21/18 08:00 10/28/18 07:59 10/24/18 08:41 Dextrose (Dextrose 50%) 25 ml Q30M PRN IV Hypoglycemia 10/21/18 18:00 11/20/18 17:59 Dextrose (Dextrose 50%) 50 ml Q30M PRN IV Hypoglycemia 10/21/18 18:00 11/20/18 17:59 Insulin Aspart (NovoLOG) BEFORE MEALS AND HS SUBQ 10/21/18 21:00 11/20/18 20:59 10/24/18 11:36 Insulin Detemir (Levemir) 8 units DAILY SUBQ 10/24/18 10:15 11/23/18 10:14 10/24/18 11:37 Lansoprazole (Prevacid) 30 mg BID GT 10/22/18 18:00 11/21/18 17:59 10/24/18 08:40 Cheo Bhagat MD Oct 24, 2018 13:50
[2018-10-24] MEDS ORDERED: NS 275ml ONE (15:08)
[2018-10-24 16:00] VITALS: BP 122/63
[2018-10-24 20:00] VITALS: BP 128/65
--- NOTE | 2018-10-24 20:23 | General Progress Note ---
Assessment/Plan Problem List: (1) CVA (cerebral infarction) ICD Codes: I63.9 - CVA (cerebral infarction) SNOMED: 742399435 (2) HTN (hypertension) ICD Codes: I10 - HTN (hypertension) SNOMED: 43057389 (3) Hypernatremia ICD Codes: E87.0 - Hyperosmolality and hypernatremia SNOMED: 168528050 (4) diverting colostomy (5) Malfunction of percutaneous endoscopic gastrostomy (PEG) tube ICD Codes: K94.23 - Gastrostomy malfunction SNOMED: 054623451 (6) CKD (chronic kidney disease) ICD Codes: N18.9 - Chronic kidney disease, unspecified SNOMED: 490051791 (7) DM (diabetes mellitus) ICD Codes: E11.9 - DM (diabetes mellitus) SNOMED: 41031892 (8) Renal failure (ARF), acute on chronic ICD Codes: N17.9 - Acute kidney failure, unspecified; N18.9 - Chronic kidney disease, unspecified SNOMED: 786841007 Status: progressing Assessment/Plan: sepsis is improving s/p exchange of peg afebrile niddm arf on top of cri is improving leukocytosis is improving dc planning Subjective ROS Limited/Unobtainable: Yes Allergies: Coded Allergies: No Known Allergies (Verified , 12/29/06) Objective Last 24 Hour Vital Signs Date Time Temp Pulse Resp B/P (MAP) Pulse Ox O2 Delivery O2 Flow Rate FiO2 10/24/18 16:00 97.0 78 18 122/63 (82) 96 10/24/18 12:00 96.8 78 20 142/72 (95) 96 10/24/18 09:00 Room Air 10/24/18 08:00 97.5 79 17 121/66 (84) 97 10/24/18 04:17 96.8 84 18 122/62 (82) 96 10/23/18 21:00 Room Air Intake and Output 10/23/18 10/24/18 19:00 07:00 Intake Total 680 ml 680 ml Output Total 550 ml 600 ml Balance 130 ml 80 ml Intake Free Water 200 ml 200 ml Tube Feeding 480 ml 480 ml Output Urine Total 550 ml 350 ml Stool Total 250 ml # Voids 2 2 Laboratory Tests 10/24/18 05:16: White Blood Count 10.5, Red Blood Count 3.81L, Hemoglobin 10.2L, Hematocrit 34.2L, Mean Corpuscular Volume 90, Mean Corpuscular Hemoglobin 26.7L, Mean Corpuscular Hemoglobin Concent 29.7L, Red Cell Distribution Width 19.8H, Platelet Count 222, Mean Platelet Volume 7.0, Neutrophils (%) (Auto) 67.1, Lymphocytes (%) (Auto) 16.7L, Monocytes (%) (Auto) 6.3, Eosinophils (%) (Auto) 9.3H, Basophils (%) (Auto) 0.6, Sodium Level 152H, Potassium Level 3.4L, Chloride Level 117H, Carbon Dioxide Level 22, Anion Gap 13, Blood Urea Nitrogen 50H, Creatinine 2.2H, Estimat Glomerular Filtration Rate , Glucose Level 195H, Calcium Level 8.9 Height (Feet): 5 Height (Inches): 6.00 Weight (Pounds): 152 Cardiovascular: normal rate Respiratory/Chest: lungs clear Abdomen: soft Rene Sin MD Oct 24, 2018 20:23
[2018-10-25 04:00] VITALS: BP 147/84
[2018-10-25] MEDS: NovoLOG Insulin Flexpen SUBQ SCH ×4 (05:43→21:02)
[2018-10-25 07:47] LABS: BASOPHILS % (AUTO) 0.6 % (0.0-2.0); EOSINOPHILS % (AUTO) 7.2 % (0.0-3.0); HEMATOCRIT 32.4 % (42.0-52.0); HEMOGLOBIN 10.4 G/DL (14.2-18.0); LYMPHOCYTES % (AUTO) 14.7 % (20.0-45.0); MEAN CORPUSCULAR VOLUME 86 FL (80-99); MONOCYTES % (AUTO) 5.3 % (1.0-10.0); NEUTROPHILS % (AUTO) 72.2 % (45.0-75.0); PLATELET COUNT 219 K/UL (150-450); RED BLOOD COUNT 3.79 M/UL (4.70-6.10); RED CELL DISTRIBUTION WIDTH 18.6 % (11.6-14.8); WHITE BLOOD COUNT 11.6 K/UL (4.8-10.8)
[2018-10-25 08:00] VITALS: BP 168/85
[2018-10-25 08:19] LABS: ANION GAP 12 mmol/L (5-15); BLOOD UREA NITROGEN 49 mg/dL (7-18); CALCIUM 9.3 MG/DL (8.5-10.1); CARBON DIOXIDE 25 MMOL/L (21-32); CHLORIDE 117 MMOL/L (98-107); CREATININE 2.2 MG/DL (0.55-1.30); POTASSIUM 3.6 MMOL/L (3.5-5.1); SODIUM 154 MMOL/L (136-145)
[2018-10-25] MEDS: Levemir Flexpen SUBQ SCH (08:45)
--- NOTE | 2018-10-25 10:03 | Nephrology Progress Note ---
Assessment/Plan Problem List: (1) CRI (chronic renal insufficiency) Assessment: Cr stable (2) Hypernatremia (3) Hypoalbuminemia (4) S/P colostomy (5) PEG (percutaneous endoscopic gastrostomy) status Assessment WBC lower, now WNL Na lowering on D5w LFTs lowering Cr 2.1 stable (1) Renal failure (ARF), acute on chronic (2) h/o HTN (hypertension) (3) h/o DM (diabetes mellitus) (4) h/o Pneumonia (5) Hypoalbuminemia (6) Hypernatremia (7) S/P colostomy (8) PEG (percutaneous endoscopic gastrostomy) status Plan D5W for high Na now on feeding Cr stable cont per GI monitor lytes and renal parameters Subjective ROS Limited/Unobtainable: No Constitutional: Reports: malaise Objective Objective Last 24 Hour Vital Signs Date Time Temp Pulse Resp B/P (MAP) Pulse Ox O2 Delivery O2 Flow Rate FiO2 10/25/18 09:00 Room Air 10/25/18 08:00 97.5 96 20 168/85 (112) 97 10/25/18 04:00 96.9 88 20 147/84 (105) 96 10/24/18 20:39 Room Air 10/24/18 20:00 97.1 84 20 128/65 (86) 95 10/24/18 16:00 97.0 78 18 122/63 (82) 96 10/24/18 12:00 96.8 78 20 142/72 (95) 96 Intake and Output 10/24/18 10/25/18 19:00 07:00 Intake Total 635 ml 680 ml Output Total 400 ml 1000 ml Balance 235 ml -320 ml Intake Free Water 100 ml 200 ml IV Total 55 ml Tube Feeding 480 ml 480 ml Output Urine Total 200 ml 600 ml Stool Total 200 ml 400 ml Laboratory Tests 10/25/18 06:40: White Blood Count 11.6H, Red Blood Count 3.79L, Hemoglobin 10.4L, Hematocrit 32.4L, Mean Corpuscular Volume 86, Mean Corpuscular Hemoglobin 27.3, Mean Corpuscular Hemoglobin Concent 32.0, Red Cell Distribution Width 18.6H, Platelet Count 219, Mean Platelet Volume 6.3L, Neutrophils (%) (Auto) 72.2, Lymphocytes (%) (Auto) 14.7L, Monocytes (%) (Auto) 5.3, Eosinophils (%) (Auto) 7.2H, Basophils (%) (Auto) 0.6, Sodium Level 154H, Potassium Level 3.6, Chloride Level 117H, Carbon Dioxide Level 25, Anion Gap 12, Blood Urea Nitrogen 49H, Creatinine 2.2H, Estimat Glomerular Filtration Rate , Glucose Level 214H, Calcium Level 9.3 Height (Feet): 5 Height (Inches): 6.00 Weight (Pounds): 152 General Appearance: no apparent distress Respiratory/Chest: decreased breath sounds Abdomen: soft, distended Objective no change Gregorio Hoyos MD Oct 25, 2018 10:03
--- NOTE | 2018-10-25 10:54 | GI Progress Note ---
Assessment/Plan Problems: (1) PEG (percutaneous endoscopic gastrostomy) status ICD Codes: Z93.1 - Gastrostomy status SNOMED: 628574108, 298702391 (2) GERD (gastroesophageal reflux disease) ICD Codes: K21.9 - GERD (gastroesophageal reflux disease) SNOMED: 140672244 (3) Anemia ICD Codes: D64.9 - Anemia SNOMED: 314248769 (4) diverting colostomy (5) Malfunction of percutaneous endoscopic gastrostomy (PEG) tube ICD Codes: K94.23 - Gastrostomy malfunction SNOMED: 832361136 Status: unchanged Status Narrative Discussed with Dr. Ochoa. Assessment/Plan GT 18french replaced at bedside TF's per RD prn transfusions ppi electrolyte correction follow labs fu stool ob The patient was seen and examined at bedside and all new and available data was reviewed in the patients chart. I agree with the above findings, impression and plan. (Patient seen earlier today. Signature stamp does not reflect patient encounter time.). - Abner Ochoa MD Subjective Subjective limited Objective Last 24 Hour Vital Signs Date Time Temp Pulse Resp B/P (MAP) Pulse Ox O2 Delivery O2 Flow Rate FiO2 10/25/18 09:00 Room Air 10/25/18 08:00 97.5 96 20 168/85 (112) 97 10/25/18 04:00 96.9 88 20 147/84 (105) 96 10/24/18 20:39 Room Air 10/24/18 20:00 97.1 84 20 128/65 (86) 95 10/24/18 16:00 97.0 78 18 122/63 (82) 96 10/24/18 12:00 96.8 78 20 142/72 (95) 96 Intake and Output 10/24/18 10/25/18 19:00 07:00 Intake Total 635 ml 680 ml Output Total 400 ml 1000 ml Balance 235 ml -320 ml Intake Free Water 100 ml 200 ml IV Total 55 ml Tube Feeding 480 ml 480 ml Output Urine Total 200 ml 600 ml Stool Total 200 ml 400 ml Laboratory Tests Test 10/25/18 06:40 White Blood Count 11.6 K/UL (4.8-10.8) H Red Blood Count 3.79 M/UL (4.70-6.10) L Hemoglobin 10.4 G/DL (14.2-18.0) L Hematocrit 32.4 % (42.0-52.0) L Mean Corpuscular Volume 86 FL (80-99) Mean Corpuscular Hemoglobin 27.3 PG (27.0-31.0) Mean Corpuscular Hemoglobin Concent 32.0 G/DL (32.0-36.0) Red Cell Distribution Width 18.6 % (11.6-14.8) H Platelet Count 219 K/UL (150-450) Mean Platelet Volume 6.3 FL (6.5-10.1) L Neutrophils (%) (Auto) 72.2 % (45.0-75.0) Lymphocytes (%) (Auto) 14.7 % (20.0-45.0) L Monocytes (%) (Auto) 5.3 % (1.0-10.0) Eosinophils (%) (Auto) 7.2 % (0.0-3.0) H Basophils (%) (Auto) 0.6 % (0.0-2.0) Sodium Level 154 MMOL/L (136-145) H Potassium Level 3.6 MMOL/L (3.5-5.1) Chloride Level 117 MMOL/L (98-107) H Carbon Dioxide Level 25 MMOL/L (21-32) Anion Gap 12 mmol/L (5-15) Blood Urea Nitrogen 49 mg/dL (7-18) H Creatinine 2.2 MG/DL (0.55-1.30) H Estimat Glomerular Filtration Rate mL/min (>60) Glucose Level 214 MG/DL (74-106) H Calcium Level 9.3 MG/DL (8.5-10.1) Height (Feet): 5 Height (Inches): 6.00 Weight (Pounds): 152 General Appearance: alert Cardiovascular: normal rate Abdominal Exam: soft, GT site - c/d/i Meredith Avilez NP Oct 25, 2018 10:54
--- NOTE | 2018-10-25 11:17 | Infectious Diseases Prog Note ---
Assessment/Plan Assessment/Plan IMPRESSION: Chronic lung infiltrates Leukocytosis, Malfunctioning G-tube was changed, diabetes mellitus, hypertension, dementia, hypernatremia, rhabdomyolysis. 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 RECOMMENDATION: Observe off antibiotic Subjective ROS Limited/Unobtainable: Yes Allergies: Coded Allergies: No Known Allergies (Verified , 12/29/06) Objective Vital Signs Last 24 Hour Vital Signs Date Time Temp Pulse Resp B/P (MAP) Pulse Ox O2 Delivery O2 Flow Rate FiO2 10/25/18 09:00 Room Air 10/25/18 08:00 97.5 96 20 168/85 (112) 97 10/25/18 04:00 96.9 88 20 147/84 (105) 96 10/24/18 20:39 Room Air 10/24/18 20:00 97.1 84 20 128/65 (86) 95 10/24/18 16:00 97.0 78 18 122/63 (82) 96 10/24/18 12:00 96.8 78 20 142/72 (95) 96 Height (Feet): 5 Height (Inches): 6.00 Weight (Pounds): 152 General Appearance: no acute distress HEENT: mucous membranes moist Respiratory/Chest: lungs clear Cardiovascular: normal rate Abdomen: soft, non tender, other - Gt feeding Extremities: no edema Neurologic/Psychiatric: alert, responsive, disoriented Laboratory Tests Test 10/25/18 06:40 White Blood Count 11.6 K/UL (4.8-10.8) H Red Blood Count 3.79 M/UL (4.70-6.10) L Hemoglobin 10.4 G/DL (14.2-18.0) L Hematocrit 32.4 % (42.0-52.0) L Mean Corpuscular Volume 86 FL (80-99) Mean Corpuscular Hemoglobin 27.3 PG (27.0-31.0) Mean Corpuscular Hemoglobin Concent 32.0 G/DL (32.0-36.0) Red Cell Distribution Width 18.6 % (11.6-14.8) H Platelet Count 219 K/UL (150-450) Mean Platelet Volume 6.3 FL (6.5-10.1) L Neutrophils (%) (Auto) 72.2 % (45.0-75.0) Lymphocytes (%) (Auto) 14.7 % (20.0-45.0) L Monocytes (%) (Auto) 5.3 % (1.0-10.0) Eosinophils (%) (Auto) 7.2 % (0.0-3.0) H Basophils (%) (Auto) 0.6 % (0.0-2.0) Sodium Level 154 MMOL/L (136-145) H Potassium Level 3.6 MMOL/L (3.5-5.1) Chloride Level 117 MMOL/L (98-107) H Carbon Dioxide Level 25 MMOL/L (21-32) Anion Gap 12 mmol/L (5-15) Blood Urea Nitrogen 49 mg/dL (7-18) H Creatinine 2.2 MG/DL (0.55-1.30) H Estimat Glomerular Filtration Rate mL/min (>60) Glucose Level 214 MG/DL (74-106) H Calcium Level 9.3 MG/DL (8.5-10.1) Current Medications Medications (Trade) Dose Ordered Sig/Jared Route PRN Reason Start Time Stop Time Status Last Admin Dose Admin Dextrose 1,000 ml @ 100 mls/hr Q10H IV 10/25/18 09:00 11/24/18 08:59 Dextrose (Dextrose 50%) 25 ml Q30M PRN IV Hypoglycemia 10/21/18 18:00 11/20/18 17:59 Dextrose (Dextrose 50%) 50 ml Q30M PRN IV Hypoglycemia 10/21/18 18:00 11/20/18 17:59 Insulin Aspart (NovoLOG) BEFORE MEALS AND HS SUBQ 10/21/18 21:00 11/20/18 20:59 10/25/18 05:43 Insulin Detemir (Levemir) 8 units DAILY SUBQ 10/24/18 10:15 11/23/18 10:14 10/25/18 08:45 Lansoprazole (Prevacid) 30 mg BID GT 10/22/18 18:00 11/21/18 17:59 10/25/18 08:46 Cheo Bhagat MD Oct 25, 2018 11:17
[2018-10-25 12:00] VITALS: BP 131/75
--- NOTE | 2018-10-25 13:26 | Surgery Progress Note ---
Surgery Progress Note Subjective Additional Comments leukocytosis worsening electrolytes exam unchanged tolerating feeds bryson in place Objective Last 24 Hour Vital Signs Date Time Temp Pulse Resp B/P (MAP) Pulse Ox O2 Delivery O2 Flow Rate FiO2 10/25/18 12:00 98.0 89 20 131/75 (93) 96 10/25/18 09:00 Room Air 10/25/18 08:00 97.5 96 20 168/85 (112) 97 10/25/18 04:00 96.9 88 20 147/84 (105) 96 10/24/18 20:39 Room Air 10/24/18 20:00 97.1 84 20 128/65 (86) 95 10/24/18 16:00 97.0 78 18 122/63 (82) 96 I&O Intake and Output 10/24/18 10/25/18 19:00 07:00 Intake Total 635 ml 680 ml Output Total 400 ml 1000 ml Balance 235 ml -320 ml Intake Free Water 100 ml 200 ml IV Total 55 ml Tube Feeding 480 ml 480 ml Output Urine Total 200 ml 600 ml Stool Total 200 ml 400 ml Dressing: other Wound: other Drains: other Cardiovascular: RSR Respiratory: decreased breath sounds Abdomen: soft, present bowel sounds, other, non-distended Extremities: no cyanosis, other Laboratory Tests Test 10/25/18 06:40 White Blood Count 11.6 K/UL (4.8-10.8) H Red Blood Count 3.79 M/UL (4.70-6.10) L Hemoglobin 10.4 G/DL (14.2-18.0) L Hematocrit 32.4 % (42.0-52.0) L Mean Corpuscular Volume 86 FL (80-99) Mean Corpuscular Hemoglobin 27.3 PG (27.0-31.0) Mean Corpuscular Hemoglobin Concent 32.0 G/DL (32.0-36.0) Red Cell Distribution Width 18.6 % (11.6-14.8) H Platelet Count 219 K/UL (150-450) Mean Platelet Volume 6.3 FL (6.5-10.1) L Neutrophils (%) (Auto) 72.2 % (45.0-75.0) Lymphocytes (%) (Auto) 14.7 % (20.0-45.0) L Monocytes (%) (Auto) 5.3 % (1.0-10.0) Eosinophils (%) (Auto) 7.2 % (0.0-3.0) H Basophils (%) (Auto) 0.6 % (0.0-2.0) Sodium Level 154 MMOL/L (136-145) H Potassium Level 3.6 MMOL/L (3.5-5.1) Chloride Level 117 MMOL/L (98-107) H Carbon Dioxide Level 25 MMOL/L (21-32) Anion Gap 12 mmol/L (5-15) Blood Urea Nitrogen 49 mg/dL (7-18) H Creatinine 2.2 MG/DL (0.55-1.30) H Estimat Glomerular Filtration Rate mL/min (>60) Glucose Level 214 MG/DL (74-106) H Calcium Level 9.3 MG/DL (8.5-10.1) Plan Problems: (1) diverting colostomy Assessment & Plan: Hx of diverting colostomy. has considered takedown int he past but unfortunately patient has deteriorated and unable to proceed ostomy with hernia but stable ostomy viable with output will cont to monitor (2) Abdominal pain Assessment & Plan: okay for diet via feeding tube as per GI nutritional support as needs it DAILY ESTIMATED NEEDS: Needs based on DM, renal dysfunction, wound/ 64kg abw 25-30 kcals/kg 4460-0731 total kcals 1-1.5 g protein/kg 64-96 g total protein 25-30 mL/kg 0345-7083 total fluid mLs NUTRITION DIAGNOSIS: * Swallowing difficulty R/T dysphagia, decreased cognitive fxn as evidenced by pt is GT dependent * Altered nutrition related lab values R/T renal dysfunction, diabetes, dehydration as evidenced by elev creat (2.1), elev BGs (200, 102), A1C of 7.6, elev Na (148). * Increased kcal/prot/micronutrients needs R/T wound healing as evidenced by pt admitted w/ sacral wound, stage 1 per RN. CURRENT TF:NPO ENTERAL NUTRITION RECOMMENDATIONS: Nepro @ 40ml/hr x 24 hrs to provide 960ml, 1728kcal, 77g prot, 698ml free water * Pt on Nepro LEATHER ETCHER, rec to maintain Nepro to keep electrolytes wnl * S/p GT replacement, initiate Nepro @ 20ml/hr x 6 hrs, advance 10ml q 4-6 hrs as tolerated to goal rate. * HOB over 30 degrees/ water flush per MD. ADDITIONAL RECOMMENDATIONS: * Per SNF, ht=5'5" hi=243hlq (09/23/18) -> bedscale wt on 10/21=69.3kg (152.4 lbs) * Monitor lytes dailly, replete as needed * Rec to continue LEATHER ETCHER TF of Nepro to maintain electrolytes wnl. * Monitor BGs, need for long acting insulin (pt on Levemir LEATHER ETCHER) * Wound healing: add MVI x1, Vit C 250mg QD : add Mahendra 1pkt BID (3) Malfunction of percutaneous endoscopic gastrostomy (PEG) tube (4) Parastomal hernia Assessment & Plan: has been present for some time and stable unfortunately cannot repair or takedown now will monitor Praveen Traylor Oct 25, 2018 13:26
[2018-10-25 16:00] VITALS: BP 138/82
--- NOTE | 2018-10-25 19:37 | General Progress Note ---
Assessment/Plan Problem List: (1) CKD (chronic kidney disease) ICD Codes: N18.9 - Chronic kidney disease, unspecified SNOMED: 889133136 (2) HTN (hypertension) ICD Codes: I10 - HTN (hypertension) SNOMED: 65668924 (3) CVA (cerebral infarction) ICD Codes: I63.9 - CVA (cerebral infarction) SNOMED: 748524126 (4) DM (diabetes mellitus) ICD Codes: E11.9 - DM (diabetes mellitus) SNOMED: 20415399 (5) CRI (chronic renal insufficiency) ICD Codes: N18.9 - CRI (chronic renal insufficiency) SNOMED: 351457705 Status: unchanged Assessment/Plan: increase Levemir to 8 units bid continue NISS Subjective Allergies: Coded Allergies: No Known Allergies (Verified , 12/29/06) All Systems: reviewed and negative except above Subjective events noted glucose values on higher side Item Value Date Time Bedside Blood Glucose 227 mg/dl H 10/25/18 1640 Bedside Blood Glucose 227 mg/dl H 10/25/18 1132 Bedside Blood Glucose 210 mg/dl H 10/25/18 0845 Objective Last 24 Hour Vital Signs Date Time Temp Pulse Resp B/P (MAP) Pulse Ox O2 Delivery O2 Flow Rate FiO2 10/25/18 16:00 97.7 89 20 138/82 (100) 94 10/25/18 12:00 98.0 89 20 131/75 (93) 96 10/25/18 09:00 Room Air 10/25/18 08:00 97.5 96 20 168/85 (112) 97 10/25/18 04:00 96.9 88 20 147/84 (105) 96 10/24/18 20:39 Room Air 10/24/18 20:00 97.1 84 20 128/65 (86) 95 Intake and Output 10/24/18 10/25/18 19:00 07:00 Intake Total 635 ml 720 ml Output Total 400 ml 1000 ml Balance 235 ml -280 ml Intake Free Water 100 ml 200 ml IV Total 55 ml Tube Feeding 480 ml 520 ml Output Urine Total 200 ml 600 ml Stool Total 200 ml 400 ml Laboratory Tests 10/25/18 06:40: White Blood Count 11.6H, Red Blood Count 3.79L, Hemoglobin 10.4L, Hematocrit 32.4L, Mean Corpuscular Volume 86, Mean Corpuscular Hemoglobin 27.3, Mean Corpuscular Hemoglobin Concent 32.0, Red Cell Distribution Width 18.6H, Platelet Count 219, Mean Platelet Volume 6.3L, Neutrophils (%) (Auto) 72.2, Lymphocytes (%) (Auto) 14.7L, Monocytes (%) (Auto) 5.3, Eosinophils (%) (Auto) 7.2H, Basophils (%) (Auto) 0.6, Sodium Level 154H, Potassium Level 3.6, Chloride Level 117H, Carbon Dioxide Level 25, Anion Gap 12, Blood Urea Nitrogen 49H, Creatinine 2.2H, Estimat Glomerular Filtration Rate , Glucose Level 214H, Calcium Level 9.3 Height (Feet): 5 Height (Inches): 6.00 Weight (Pounds): 152 General Appearance: no apparent distress Neck: normal alignment Cardiovascular: normal rate Respiratory/Chest: lungs clear Abdomen: normal bowel sounds Objective Current Medications Medications (Trade) Dose Ordered Sig/Jared Route PRN Reason Start Time Stop Time Status Last Admin Dose Admin Dextrose 1,000 ml @ 100 mls/hr Q10H IV 10/25/18 09:00 11/24/18 08:59 10/25/18 11:35 Dextrose (Dextrose 50%) 25 ml Q30M PRN IV Hypoglycemia 10/21/18 18:00 11/20/18 17:59 Dextrose (Dextrose 50%) 50 ml Q30M PRN IV Hypoglycemia 10/21/18 18:00 11/20/18 17:59 Insulin Aspart (NovoLOG) BEFORE MEALS AND HS SUBQ 10/21/18 21:00 11/20/18 20:59 10/25/18 16:40 Insulin Detemir (Levemir) 8 units DAILY SUBQ 10/24/18 10:15 11/23/18 10:14 10/25/18 08:45 Lansoprazole (Prevacid) 30 mg BID GT 10/22/18 18:00 11/21/18 17:59 10/25/18 17:56 Juan Carlos Lu MD Oct 25, 2018 19:37
[2018-10-25 20:00] VITALS: BP 146/74
--- NOTE | 2018-10-25 21:28 | Consultation ---
Consult Note Consult Note Patient: GERARD BOTELLO Date of CONSULTATION: 10/24/18 JANEL MD: Dr. Sin REASON FOR REFERRAL: Anemia Evaluation HISTORY OF PRESENT ILLNESS: This is a 82 year old male patient who is aphasic, history of strokes. Is a poor historian, most of the hpi was obtained from his chart and from emr. 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 Upon work up he was found to be slighglty mildly anemic wbc 10.5, hgb 10.2, and plt count 222. We were consulted for anemia evaluation. 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 PAST SURGICAL HISTORY: Megacolon surgery, history of colostomy, history of PEG. ALLERGIES: No known allergies. FAMILY HISTORY: Unknown REVIEW OF SYSTEMS: Difficult to assess PHYSICAL EXAMINATION: VITAL SIGNS: reviewed HEENT: PERRLA. NECK: Supple. No lymphadenopathy. CHEST: Clear to auscultation. CARDIOVASCULAR: Regular rate and rhythm. ABDOMEN: Does have temporary Noble and G-tube. Noble intact. Has colostomy intact. Abdomen is distended. EXTREMITIES: 1+ edema. Reflexes equal on both sides. Has lower extremity weakness, which is chronic. LABORATORY DATA: WBC of 18.8, hemoglobin 11.4, platelets 325. Sodium 154, potassium 4.4, BUN of 27, creatinine 3.2, glucose 191. AST of 62, ALT of 102. ASSESSMENT AND RECC'S: #. Anemia of chronic disease, multifactorial. --> Anemia work up has been ordered --> no hemolysis noted, transfuse as needed, hgb goal > 7. #. Elevated LFTs --> continue to trend and GI is following appreciate rec's. #. Acute renal failure #. Sepsis #. Electrolyte imbalance --> monitor BMP #. Dehydration --> IVF The time the note was entered does not correspond to the time the patient was seen. Greatly appreciate consultation. Saida Zuleta NP Oct 25, 2018 21:28
--- NOTE | 2018-10-25 21:42 | General Progress Note ---
Assessment/Plan Problem List: (1) CVA (cerebral infarction) ICD Codes: I63.9 - CVA (cerebral infarction) SNOMED: 158577508 (2) HTN (hypertension) ICD Codes: I10 - HTN (hypertension) SNOMED: 35004250 (3) Hypernatremia ICD Codes: E87.0 - Hyperosmolality and hypernatremia SNOMED: 542615992 (4) diverting colostomy (5) Malfunction of percutaneous endoscopic gastrostomy (PEG) tube ICD Codes: K94.23 - Gastrostomy malfunction SNOMED: 001763277 (6) CKD (chronic kidney disease) ICD Codes: N18.9 - Chronic kidney disease, unspecified SNOMED: 449272497 (7) DM (diabetes mellitus) ICD Codes: E11.9 - DM (diabetes mellitus) SNOMED: 18322907 (8) Renal failure (ARF), acute on chronic ICD Codes: N17.9 - Acute kidney failure, unspecified; N18.9 - Chronic kidney disease, unspecified SNOMED: 335915721 Status: progressing, unchanged Assessment/Plan: sepsis is improving s/p exchange of peg check sugar htn gerd afebrile niddm arf on top of cri is improving leukocytosis is improving dc planning Subjective ROS Limited/Unobtainable: Yes Allergies: Coded Allergies: No Known Allergies (Verified , 12/29/06) Objective Last 24 Hour Vital Signs Date Time Temp Pulse Resp B/P (MAP) Pulse Ox O2 Delivery O2 Flow Rate FiO2 10/25/18 20:00 97.7 95 20 146/74 (98) 95 10/25/18 16:00 97.7 89 20 138/82 (100) 94 10/25/18 12:00 98.0 89 20 131/75 (93) 96 10/25/18 09:00 Room Air 10/25/18 08:00 97.5 96 20 168/85 (112) 97 10/25/18 04:00 96.9 88 20 147/84 (105) 96 Intake and Output 10/24/18 10/25/18 19:00 07:00 Intake Total 635 ml 720 ml Output Total 400 ml 1000 ml Balance 235 ml -280 ml Intake Free Water 100 ml 200 ml IV Total 55 ml Tube Feeding 480 ml 520 ml Output Urine Total 200 ml 600 ml Stool Total 200 ml 400 ml Laboratory Tests 10/25/18 06:40: White Blood Count 11.6H, Red Blood Count 3.79L, Hemoglobin 10.4L, Hematocrit 32.4L, Mean Corpuscular Volume 86, Mean Corpuscular Hemoglobin 27.3, Mean Corpuscular Hemoglobin Concent 32.0, Red Cell Distribution Width 18.6H, Platelet Count 219, Mean Platelet Volume 6.3L, Neutrophils (%) (Auto) 72.2, Lymphocytes (%) (Auto) 14.7L, Monocytes (%) (Auto) 5.3, Eosinophils (%) (Auto) 7.2H, Basophils (%) (Auto) 0.6, Sodium Level 154H, Potassium Level 3.6, Chloride Level 117H, Carbon Dioxide Level 25, Anion Gap 12, Blood Urea Nitrogen 49H, Creatinine 2.2H, Estimat Glomerular Filtration Rate , Glucose Level 214H, Calcium Level 9.3 Height (Feet): 5 Height (Inches): 6.00 Weight (Pounds): 152 Cardiovascular: normal rate Respiratory/Chest: lungs clear Rene Sin MD Oct 25, 2018 21:42
[2018-10-25 23:48] VITALS: BP 138/64
[2018-10-26 04:00] VITALS: BP 136/68
[2018-10-26] MEDS: NovoLOG Insulin Flexpen SUBQ SCH ×2 (05:18→13:08)
--- NOTE | 2018-10-26 06:34 | General Progress Note ---
Assessment/Plan Problem List: (1) CKD (chronic kidney disease) ICD Codes: N18.9 - Chronic kidney disease, unspecified SNOMED: 109829898 (2) HTN (hypertension) ICD Codes: I10 - HTN (hypertension) SNOMED: 32885038 (3) CVA (cerebral infarction) ICD Codes: I63.9 - CVA (cerebral infarction) SNOMED: 065406026 (4) DM (diabetes mellitus) ICD Codes: E11.9 - DM (diabetes mellitus) SNOMED: 41446441 (5) CRI (chronic renal insufficiency) ICD Codes: N18.9 - CRI (chronic renal insufficiency) SNOMED: 854708544 Status: progressing, unchanged Assessment/Plan: increase Levemir to 10 units bid continue NISS Subjective Allergies: Coded Allergies: No Known Allergies (Verified , 12/29/06) Subjective events noted glucose values on higher side Item Value Date Time Bedside Blood Glucose 274 mg/dl H 10/26/18 0536 Bedside Blood Glucose 268 mg/dl H 10/25/18 2102 Bedside Blood Glucose 227 mg/dl H 10/25/18 1640 Bedside Blood Glucose 227 mg/dl H 10/25/18 1132 Bedside Blood Glucose 210 mg/dl H 10/25/18 0845 Objective Last 24 Hour Vital Signs Date Time Temp Pulse Resp B/P (MAP) Pulse Ox O2 Delivery O2 Flow Rate FiO2 10/26/18 04:00 97.5 83 18 136/68 (90) 95 10/25/18 23:48 97.3 84 20 138/64 (88) 100 10/25/18 21:00 Room Air 10/25/18 20:00 97.7 95 20 146/74 (98) 95 10/25/18 16:00 97.7 89 20 138/82 (100) 94 10/25/18 12:00 98.0 89 20 131/75 (93) 96 10/25/18 09:00 Room Air 10/25/18 08:00 97.5 96 20 168/85 (112) 97 Intake and Output 10/25/18 10/26/18 19:00 07:00 Intake Total 1340 ml 1700 ml Output Total 300 ml Balance 1340 ml 1400 ml Intake Free Water 200 ml 200 ml IV Total 700 ml 1100 ml Tube Feeding 440 ml 400 ml Stool Total 300 ml # Voids 1 Laboratory Tests 10/25/18 06:40: White Blood Count 11.6H, Red Blood Count 3.79L, Hemoglobin 10.4L, Hematocrit 32.4L, Mean Corpuscular Volume 86, Mean Corpuscular Hemoglobin 27.3, Mean Corpuscular Hemoglobin Concent 32.0, Red Cell Distribution Width 18.6H, Platelet Count 219, Mean Platelet Volume 6.3L, Neutrophils (%) (Auto) 72.2, Lymphocytes (%) (Auto) 14.7L, Monocytes (%) (Auto) 5.3, Eosinophils (%) (Auto) 7.2H, Basophils (%) (Auto) 0.6, Sodium Level 154H, Potassium Level 3.6, Chloride Level 117H, Carbon Dioxide Level 25, Anion Gap 12, Blood Urea Nitrogen 49H, Creatinine 2.2H, Estimat Glomerular Filtration Rate , Glucose Level 214H, Calcium Level 9.3 Height (Feet): 5 Height (Inches): 6.00 Weight (Pounds): 152 General Appearance: no apparent distress Neck: normal alignment Cardiovascular: normal rate Respiratory/Chest: decreased breath sounds Abdomen: normal bowel sounds Objective Current Medications Medications (Trade) Dose Ordered Sig/Jared Route PRN Reason Start Time Stop Time Status Last Admin Dose Admin Dextrose 1,000 ml @ 100 mls/hr Q10H IV 10/25/18 09:00 11/24/18 08:59 10/26/18 05:09 Dextrose (Dextrose 50%) 25 ml Q30M PRN IV Hypoglycemia 10/21/18 18:00 11/20/18 17:59 Dextrose (Dextrose 50%) 50 ml Q30M PRN IV Hypoglycemia 10/21/18 18:00 11/20/18 17:59 Insulin Aspart (NovoLOG) BEFORE MEALS AND HS SUBQ 10/21/18 21:00 11/20/18 20:59 10/26/18 05:18 Insulin Detemir (Levemir) 8 units BID SUBQ 10/26/18 09:00 11/23/18 10:14 Lansoprazole (Prevacid) 30 mg BID GT 10/22/18 18:00 11/21/18 17:59 10/25/18 17:56 Juan Carlos Lu MD Oct 26, 2018 06:34
[2018-10-26 07:09] LABS: BASOPHILS % (AUTO) 0.5 % (0.0-2.0); EOSINOPHILS % (AUTO) 6.1 % (0.0-3.0); HEMATOCRIT 33.7 % (42.0-52.0); HEMOGLOBIN 10.2 G/DL (14.2-18.0); LYMPHOCYTES % (AUTO) 16.7 % (20.0-45.0); MEAN CORPUSCULAR VOLUME 89 FL (80-99); MONOCYTES % (AUTO) 4.9 % (1.0-10.0); NEUTROPHILS % (AUTO) 71.7 % (45.0-75.0); PLATELET COUNT 228 K/UL (150-450); RED CELL DISTRIBUTION WIDTH 19.4 % (11.6-14.8); WHITE BLOOD COUNT 11.2 K/UL (4.8-10.8)
[2018-10-26 07:15] LABS: ANION GAP 12 mmol/L (5-15); BLOOD UREA NITROGEN 48 mg/dL (7-18); CALCIUM 9.1 MG/DL (8.5-10.1); CARBON DIOXIDE 24 MMOL/L (21-32); CHLORIDE 113 MMOL/L (98-107); CREATININE 2.1 MG/DL (0.55-1.30); PHOSPHORUS 2.8 MG/DL (2.5-4.9); POTASSIUM 3.3 MMOL/L (3.5-5.1); SODIUM 148 MMOL/L (136-145)
[2018-10-26 08:00] VITALS: BP 138/63
[2018-10-26] MEDS ORDERED: Levemir Flexpen SUBQ SCH ×2 (09:00)
[2018-10-26 12:00] VITALS: BP 123/63
--- NOTE | 2018-10-26 12:26 | Infectious Diseases Prog Note ---
Assessment/Plan Assessment/Plan IMPRESSION: Chronic lung infiltrates Leukocytosis, Malfunctioning G-tube was changed, diabetes mellitus, hypertension, dementia, hypernatremia, rhabdomyolysis. 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 RECOMMENDATION: Observe off antibiotic Agree with discharge Subjective ROS Limited/Unobtainable: Yes Constitutional: Denies: fever Allergies: Coded Allergies: No Known Allergies (Verified , 12/29/06) Objective Vital Signs Last 24 Hour Vital Signs Date Time Temp Pulse Resp B/P (MAP) Pulse Ox O2 Delivery O2 Flow Rate FiO2 10/26/18 09:00 Room Air 10/26/18 08:00 98.0 84 19 138/63 (88) 98 10/26/18 04:00 97.5 83 18 136/68 (90) 95 10/25/18 23:48 97.3 84 20 138/64 (88) 100 10/25/18 21:00 Room Air 10/25/18 20:00 97.7 95 20 146/74 (98) 95 10/25/18 16:00 97.7 89 20 138/82 (100) 94 Height (Feet): 5 Height (Inches): 6.00 Weight (Pounds): 152 General Appearance: no acute distress HEENT: mucous membranes moist Respiratory/Chest: lungs clear Cardiovascular: normal rate Abdomen: soft, non tender, other - GT feeding Extremities: no edema Neurologic/Psychiatric: alert, responsive Laboratory Tests Test 10/26/18 05:45 White Blood Count 11.2 K/UL (4.8-10.8) H Red Blood Count 3.80 M/UL (4.70-6.10) L Hemoglobin 10.2 G/DL (14.2-18.0) L Hematocrit 33.7 % (42.0-52.0) L Mean Corpuscular Volume 89 FL (80-99) Mean Corpuscular Hemoglobin 26.8 PG (27.0-31.0) L Mean Corpuscular Hemoglobin Concent 30.2 G/DL (32.0-36.0) L Red Cell Distribution Width 19.4 % (11.6-14.8) H Platelet Count 228 K/UL (150-450) Mean Platelet Volume 6.5 FL (6.5-10.1) Neutrophils (%) (Auto) 71.7 % (45.0-75.0) Lymphocytes (%) (Auto) 16.7 % (20.0-45.0) L Monocytes (%) (Auto) 4.9 % (1.0-10.0) Eosinophils (%) (Auto) 6.1 % (0.0-3.0) H Basophils (%) (Auto) 0.5 % (0.0-2.0) Sodium Level 148 MMOL/L (136-145) H Potassium Level 3.3 MMOL/L (3.5-5.1) L Chloride Level 113 MMOL/L (98-107) H Carbon Dioxide Level 24 MMOL/L (21-32) Anion Gap 12 mmol/L (5-15) Blood Urea Nitrogen 48 mg/dL (7-18) H Creatinine 2.1 MG/DL (0.55-1.30) H Estimat Glomerular Filtration Rate mL/min (>60) Glucose Level 271 MG/DL (74-106) H Calcium Level 9.1 MG/DL (8.5-10.1) Phosphorus Level 2.8 MG/DL (2.5-4.9) Magnesium Level 2.4 MG/DL (1.8-2.4) Current Medications Medications (Trade) Dose Ordered Sig/Jared Route PRN Reason Start Time Stop Time Status Last Admin Dose Admin Dextrose 1,000 ml @ 100 mls/hr Q10H IV 10/25/18 09:00 11/24/18 08:59 10/26/18 05:09 Dextrose (Dextrose 50%) 25 ml Q30M PRN IV Hypoglycemia 10/21/18 18:00 11/20/18 17:59 Dextrose (Dextrose 50%) 50 ml Q30M PRN IV Hypoglycemia 10/21/18 18:00 11/20/18 17:59 Insulin Aspart (NovoLOG) BEFORE MEALS AND HS SUBQ 10/21/18 21:00 11/20/18 20:59 10/26/18 05:18 Insulin Detemir (Levemir) 10 units BID SUBQ 10/26/18 09:00 11/23/18 10:14 10/26/18 09:34 Lansoprazole (Prevacid) 30 mg BID GT 10/22/18 18:00 11/21/18 17:59 10/26/18 09:33 Potassium Chloride (K-Dur) 20 meq DAILY GT 10/26/18 09:00 11/25/18 08:59 10/26/18 09:33 Cheo Bhagat MD Oct 26, 2018 12:26
[2018-10-26] MEDS ORDERED: LEVEMIR FL100 UNIT/1 SUBQ (12:43)
--- NOTE | 2018-10-26 13:16 | GI Progress Note ---
Assessment/Plan Problems: (1) PEG (percutaneous endoscopic gastrostomy) status ICD Codes: Z93.1 - Gastrostomy status SNOMED: 275384419, 078842459 (2) GERD (gastroesophageal reflux disease) ICD Codes: K21.9 - GERD (gastroesophageal reflux disease) SNOMED: 920665916 (3) Anemia ICD Codes: D64.9 - Anemia SNOMED: 391701858 (4) diverting colostomy (5) Malfunction of percutaneous endoscopic gastrostomy (PEG) tube ICD Codes: K94.23 - Gastrostomy malfunction SNOMED: 833444867 Status: stable Status Narrative Discussed with Dr. Ochoa. Assessment/Plan GT 18french replaced at bedside TF's per RD prn transfusions ppi electrolyte correction follow labs fu stool ob The patient was seen and examined at bedside and all new and available data was reviewed in the patients chart. I agree with the above findings, impression and plan. (Patient seen earlier today. Signature stamp does not reflect patient encounter time.). - Abner Ochoa MD Subjective Subjective limited Objective Last 24 Hour Vital Signs Date Time Temp Pulse Resp B/P (MAP) Pulse Ox O2 Delivery O2 Flow Rate FiO2 10/26/18 12:00 97.1 84 18 123/63 (83) 98 10/26/18 09:00 Room Air 10/26/18 08:00 98.0 84 19 138/63 (88) 98 10/26/18 04:00 97.5 83 18 136/68 (90) 95 10/25/18 23:48 97.3 84 20 138/64 (88) 100 10/25/18 21:00 Room Air 10/25/18 20:00 97.7 95 20 146/74 (98) 95 10/25/18 16:00 97.7 89 20 138/82 (100) 94 Intake and Output 10/25/18 10/26/18 19:00 07:00 Intake Total 1340 ml 1700 ml Output Total 300 ml Balance 1340 ml 1400 ml Intake Free Water 200 ml 200 ml IV Total 700 ml 1100 ml Tube Feeding 440 ml 400 ml Stool Total 300 ml # Voids 1 Laboratory Tests Test 10/26/18 05:45 White Blood Count 11.2 K/UL (4.8-10.8) H Red Blood Count 3.80 M/UL (4.70-6.10) L Hemoglobin 10.2 G/DL (14.2-18.0) L Hematocrit 33.7 % (42.0-52.0) L Mean Corpuscular Volume 89 FL (80-99) Mean Corpuscular Hemoglobin 26.8 PG (27.0-31.0) L Mean Corpuscular Hemoglobin Concent 30.2 G/DL (32.0-36.0) L Red Cell Distribution Width 19.4 % (11.6-14.8) H Platelet Count 228 K/UL (150-450) Mean Platelet Volume 6.5 FL (6.5-10.1) Neutrophils (%) (Auto) 71.7 % (45.0-75.0) Lymphocytes (%) (Auto) 16.7 % (20.0-45.0) L Monocytes (%) (Auto) 4.9 % (1.0-10.0) Eosinophils (%) (Auto) 6.1 % (0.0-3.0) H Basophils (%) (Auto) 0.5 % (0.0-2.0) Sodium Level 148 MMOL/L (136-145) H Potassium Level 3.3 MMOL/L (3.5-5.1) L Chloride Level 113 MMOL/L (98-107) H Carbon Dioxide Level 24 MMOL/L (21-32) Anion Gap 12 mmol/L (5-15) Blood Urea Nitrogen 48 mg/dL (7-18) H Creatinine 2.1 MG/DL (0.55-1.30) H Estimat Glomerular Filtration Rate mL/min (>60) Glucose Level 271 MG/DL (74-106) H Calcium Level 9.1 MG/DL (8.5-10.1) Phosphorus Level 2.8 MG/DL (2.5-4.9) Magnesium Level 2.4 MG/DL (1.8-2.4) Height (Feet): 5 Height (Inches): 6.00 Weight (Pounds): 152 General Appearance: no apparent distress Cardiovascular: normal rate Respiratory/Chest: normal breath sounds, no respiratory distress Abdominal Exam: normal bowel sounds, non tender, soft, GT site - c/d/i Extremities: non-tender Meredith Avilez KENO WRITER/RUNNER Oct 26, 2018 13:16
--- NOTE | 2018-10-26 13:31 | Nephrology Progress Note ---
Assessment/Plan Problem List: (1) CRI (chronic renal insufficiency) Assessment: Cr stable (2) Hypernatremia (3) Hypoalbuminemia (4) S/P colostomy (5) PEG (percutaneous endoscopic gastrostomy) status Assessment WBC lower, now WNL Na lowering on D5w LFTs lowering Cr 2.1 stable (1) Renal failure (ARF), acute on chronic (2) h/o HTN (hypertension) (3) h/o DM (diabetes mellitus) (4) h/o Pneumonia (5) Hypoalbuminemia (6) Hypernatremia (7) S/P colostomy (8) PEG (percutaneous endoscopic gastrostomy) status Plan K supplement D5W for high Na now on feeding Cr stable cont per GI monitor lytes and renal parameters Subjective ROS Limited/Unobtainable: Yes Objective Objective Last 24 Hour Vital Signs Date Time Temp Pulse Resp B/P (MAP) Pulse Ox O2 Delivery O2 Flow Rate FiO2 10/26/18 12:00 97.1 84 18 123/63 (83) 98 10/26/18 09:00 Room Air 10/26/18 08:00 98.0 84 19 138/63 (88) 98 10/26/18 04:00 97.5 83 18 136/68 (90) 95 10/25/18 23:48 97.3 84 20 138/64 (88) 100 10/25/18 21:00 Room Air 10/25/18 20:00 97.7 95 20 146/74 (98) 95 10/25/18 16:00 97.7 89 20 138/82 (100) 94 Intake and Output 10/25/18 10/26/18 19:00 07:00 Intake Total 1340 ml 1700 ml Output Total 300 ml Balance 1340 ml 1400 ml Intake Free Water 200 ml 200 ml IV Total 700 ml 1100 ml Tube Feeding 440 ml 400 ml Stool Total 300 ml # Voids 1 Laboratory Tests 10/26/18 05:45: White Blood Count 11.2H, Red Blood Count 3.80L, Hemoglobin 10.2L, Hematocrit 33.7L, Mean Corpuscular Volume 89, Mean Corpuscular Hemoglobin 26.8L, Mean Corpuscular Hemoglobin Concent 30.2L, Red Cell Distribution Width 19.4H, Platelet Count 228, Mean Platelet Volume 6.5, Neutrophils (%) (Auto) 71.7, Lymphocytes (%) (Auto) 16.7L, Monocytes (%) (Auto) 4.9, Eosinophils (%) (Auto) 6.1H, Basophils (%) (Auto) 0.5, Sodium Level 148H, Potassium Level 3.3L, Chloride Level 113H, Carbon Dioxide Level 24, Anion Gap 12, Blood Urea Nitrogen 48H, Creatinine 2.1H, Estimat Glomerular Filtration Rate , Glucose Level 271H, Calcium Level 9.1, Phosphorus Level 2.8, Magnesium Level 2.4 Height (Feet): 5 Height (Inches): 6.00 Weight (Pounds): 152 General Appearance: no apparent distress, lethargic Objective no change Gregorio Hoyos MD Oct 26, 2018 13:31
--- NOTE | 2018-10-26 13:47 | Hematology/Onc Progress Note ---
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 Transfuse prn. --> Medications have been reviewed --> gi recs appreciated --> trend hgb 10-->8.5->8.3-->10.4-->10.2 # Leukocytosis/elevated white blood cell count, unspecified likely related to underlying stress reaction versus underlying infection/pna/sepsis --> have reviewed peripheral smear and bandemia/neutrophilia noted --> now off abx as per id --> monitor for resolution --> trend 26k-->18k-->14.1 # R lateral nodule and possible chronic effusion. NSBGP, no obstruction. likely pna --> as er pulm eval # Elevated BUN and creatinine --> nephro recs --> cr better # Noncommunicative # Colostomy bag, gtube # Agitation on soft wrist restraints The timing of this note does not necessarily reflect the time of the patient was seen. Greatly appreciate consultation! Subjective HEENT: Denies: no symptoms, eye pain, blurred vision, tearing, double vision, ear pain, ear discharge, nose pain, nose congestion, throat pain, throat swelling, mouth pain, mouth swelling, other Cardiovascular: Denies: no symptoms, chest pain, edema, irregular heart rate, lightheadedness, palpitations, syncope, other Respiratory: Denies: no symptoms, cough, shortness of breath, SOB with excertion, SOB at rest, sputum, wheezing, other Gastrointestinal/Abdominal: Denies: no symptoms, abdomen distended, abdominal pain, black stools, tarry stools, blood in stool, constipated, diarrhea, difficulty swallowing, nausea, poor appetite, poor fluid intake, rectal bleeding , vomiting, other Neurologic/Psychiatric: Denies: no symptoms, anxiety, depressed, emotional problems, headache, numbness, paresthesia, pre-existing deficit, seizure, tingling, tremors, weakness, other Endocrine: Denies: no symptoms, excessive sweating, flushing, intolerance to cold, intolerance to heat, increased hunger, increased thirst, increased urine, unexplained weight gain, unexplained weight loss, other Hematologic/Lymphatic: Denies: no symptoms, anemia, easy bleeding, easy bruising, adenopathy, other Allergies: Coded Allergies: No Known Allergies (Verified , 12/29/06) Subjective 10/26: still somewhat confused, per baseline, for potential dc, wbc better Objective Objective Current Medications Medications (Trade) Dose Ordered Sig/Jared Route PRN Reason Start Time Stop Time Status Last Admin Dose Admin Dextrose 1,000 ml @ 50 mls/hr Q20H IV 10/26/18 14:00 11/25/18 13:59 Dextrose (Dextrose 50%) 25 ml Q30M PRN IV Hypoglycemia 10/21/18 18:00 11/20/18 17:59 Dextrose (Dextrose 50%) 50 ml Q30M PRN IV Hypoglycemia 10/21/18 18:00 11/20/18 17:59 Insulin Aspart (NovoLOG) BEFORE MEALS AND HS SUBQ 10/21/18 21:00 11/20/18 20:59 10/26/18 13:08 Insulin Detemir (Levemir) 10 units BID SUBQ 10/26/18 09:00 11/23/18 10:14 10/26/18 09:34 Lansoprazole (Prevacid) 30 mg BID GT 10/22/18 18:00 11/21/18 17:59 10/26/18 09:33 Potassium Chloride (K-Dur) 20 meq DAILY GT 10/26/18 09:00 11/25/18 08:59 10/26/18 09:33 Last 24 Hour Vital Signs Date Time Temp Pulse Resp B/P (MAP) Pulse Ox O2 Delivery O2 Flow Rate FiO2 10/26/18 12:00 97.1 84 18 123/63 (83) 98 10/26/18 09:00 Room Air 10/26/18 08:00 98.0 84 19 138/63 (88) 98 10/26/18 04:00 97.5 83 18 136/68 (90) 95 10/25/18 23:48 97.3 84 20 138/64 (88) 100 10/25/18 21:00 Room Air 10/25/18 20:00 97.7 95 20 146/74 (98) 95 10/25/18 16:00 97.7 89 20 138/82 (100) 94 10/25/18 12:00 98.0 89 20 131/75 (93) 96 10/25/18 09:00 Room Air 10/25/18 08:00 97.5 96 20 168/85 (112) 97 10/25/18 04:00 96.9 88 20 147/84 (105) 96 10/24/18 20:39 Room Air 10/24/18 20:00 97.1 84 20 128/65 (86) 95 10/24/18 16:00 97.0 78 18 122/63 (82) 96 Intake and Output 10/25/18 10/26/18 19:00 07:00 Intake Total 1340 ml 1700 ml Output Total 300 ml Balance 1340 ml 1400 ml Intake Free Water 200 ml 200 ml IV Total 700 ml 1100 ml Tube Feeding 440 ml 400 ml Stool Total 300 ml # Voids 1 Labs Test 10/24/18 05:16 10/25/18 06:40 10/26/18 05:45 White Blood Count 10.5 K/UL (4.8-10.8) 11.6 K/UL (4.8-10.8) 11.2 K/UL (4.8-10.8) Red Blood Count 3.81 M/UL (4.70-6.10) 3.79 M/UL (4.70-6.10) 3.80 M/UL (4.70-6.10) Hemoglobin 10.2 G/DL (14.2-18.0) 10.4 G/DL (14.2-18.0) 10.2 G/DL (14.2-18.0) Hematocrit 34.2 % (42.0-52.0) 32.4 % (42.0-52.0) 33.7 % (42.0-52.0) Mean Corpuscular Volume 90 FL (80-99) 86 FL (80-99) 89 FL (80-99) Mean Corpuscular Hemoglobin 26.7 PG (27.0-31.0) 27.3 PG (27.0-31.0) 26.8 PG (27.0-31.0) Mean Corpuscular Hemoglobin Concent 29.7 G/DL (32.0-36.0) 32.0 G/DL (32.0-36.0) 30.2 G/DL (32.0-36.0) Red Cell Distribution Width 19.8 % (11.6-14.8) 18.6 % (11.6-14.8) 19.4 % (11.6-14.8) Platelet Count 222 K/UL (150-450) 219 K/UL (150-450) 228 K/UL (150-450) Mean Platelet Volume 7.0 FL (6.5-10.1) 6.3 FL (6.5-10.1) 6.5 FL (6.5-10.1) Neutrophils (%) (Auto) 67.1 % (45.0-75.0) 72.2 % (45.0-75.0) 71.7 % (45.0-75.0) Lymphocytes (%) (Auto) 16.7 % (20.0-45.0) 14.7 % (20.0-45.0) 16.7 % (20.0-45.0) Monocytes (%) (Auto) 6.3 % (1.0-10.0) 5.3 % (1.0-10.0) 4.9 % (1.0-10.0) Eosinophils (%) (Auto) 9.3 % (0.0-3.0) 7.2 % (0.0-3.0) 6.1 % (0.0-3.0) Basophils (%) (Auto) 0.6 % (0.0-2.0) 0.6 % (0.0-2.0) 0.5 % (0.0-2.0) Sodium Level 152 MMOL/L (136-145) 154 MMOL/L (136-145) 148 MMOL/L (136-145) Potassium Level 3.4 MMOL/L (3.5-5.1) 3.6 MMOL/L (3.5-5.1) 3.3 MMOL/L (3.5-5.1) Chloride Level 117 MMOL/L (98-107) 117 MMOL/L (98-107) 113 MMOL/L (98-107) Carbon Dioxide Level 22 MMOL/L (21-32) 25 MMOL/L (21-32) 24 MMOL/L (21-32) Anion Gap 13 mmol/L (5-15) 12 mmol/L (5-15) 12 mmol/L (5-15) Blood Urea Nitrogen 50 mg/dL (7-18) 49 mg/dL (7-18) 48 mg/dL (7-18) Creatinine 2.2 MG/DL (0.55-1.30) 2.2 MG/DL (0.55-1.30) 2.1 MG/DL (0.55-1.30) Estimat Glomerular Filtration Rate mL/min (>60) mL/min (>60) mL/min (>60) Glucose Level 195 MG/DL (74-106) 214 MG/DL (74-106) 271 MG/DL (74-106) Calcium Level 8.9 MG/DL (8.5-10.1) 9.3 MG/DL (8.5-10.1) 9.1 MG/DL (8.5-10.1) Phosphorus Level 2.8 MG/DL (2.5-4.9) Magnesium Level 2.4 MG/DL (1.8-2.4) Height (Feet): 5 Height (Inches): 6.00 Weight (Pounds): 152 Objective Physical Exam: Vitals: reviewed General Appearance: NAD HEENT: normocephalic, atraumatic Neck: non-tender, normal alignment Respiratory/Chest: normal breath sounds bilaterally Cardiovascular/Chest: normal peripheral pulses, normal rate Abdomen: normal bowel sounds, soft, nontender + gtube Extremities: normal range of motion Sohail Reese MD Oct 26, 2018 13:47
--- NOTE | 2018-10-26 18:46 | Surgery Progress Note ---
Surgery Progress Note Subjective Additional Comments stable d/c planning for today eaxm stable Objective Last 24 Hour Vital Signs Date Time Temp Pulse Resp B/P (MAP) Pulse Ox O2 Delivery O2 Flow Rate FiO2 10/26/18 12:00 97.1 84 18 123/63 (83) 98 10/26/18 09:00 Room Air 10/26/18 08:00 98.0 84 19 138/63 (88) 98 10/26/18 04:00 97.5 83 18 136/68 (90) 95 10/25/18 23:48 97.3 84 20 138/64 (88) 100 10/25/18 21:00 Room Air 10/25/18 20:00 97.7 95 20 146/74 (98) 95 I&O Intake and Output 10/25/18 10/26/18 19:00 07:00 Intake Total 1340 ml 1700 ml Output Total 300 ml Balance 1340 ml 1400 ml Intake Free Water 200 ml 200 ml IV Total 700 ml 1100 ml Tube Feeding 440 ml 400 ml Stool Total 300 ml # Voids 1 Dressing: dry Wound: clean Cardiovascular: RSR Respiratory: clear Abdomen: soft, flat, distended, non-tender, other Extremities: no cyanosis, other Laboratory Tests Test 10/26/18 05:45 White Blood Count 11.2 K/UL (4.8-10.8) H Red Blood Count 3.80 M/UL (4.70-6.10) L Hemoglobin 10.2 G/DL (14.2-18.0) L Hematocrit 33.7 % (42.0-52.0) L Mean Corpuscular Volume 89 FL (80-99) Mean Corpuscular Hemoglobin 26.8 PG (27.0-31.0) L Mean Corpuscular Hemoglobin Concent 30.2 G/DL (32.0-36.0) L Red Cell Distribution Width 19.4 % (11.6-14.8) H Platelet Count 228 K/UL (150-450) Mean Platelet Volume 6.5 FL (6.5-10.1) Neutrophils (%) (Auto) 71.7 % (45.0-75.0) Lymphocytes (%) (Auto) 16.7 % (20.0-45.0) L Monocytes (%) (Auto) 4.9 % (1.0-10.0) Eosinophils (%) (Auto) 6.1 % (0.0-3.0) H Basophils (%) (Auto) 0.5 % (0.0-2.0) Sodium Level 148 MMOL/L (136-145) H Potassium Level 3.3 MMOL/L (3.5-5.1) L Chloride Level 113 MMOL/L (98-107) H Carbon Dioxide Level 24 MMOL/L (21-32) Anion Gap 12 mmol/L (5-15) Blood Urea Nitrogen 48 mg/dL (7-18) H Creatinine 2.1 MG/DL (0.55-1.30) H Estimat Glomerular Filtration Rate mL/min (>60) Glucose Level 271 MG/DL (74-106) H Calcium Level 9.1 MG/DL (8.5-10.1) Phosphorus Level 2.8 MG/DL (2.5-4.9) Magnesium Level 2.4 MG/DL (1.8-2.4) Plan Problems: (1) diverting colostomy Assessment & Plan: Hx of diverting colostomy. has considered takedown int he past but unfortunately patient has deteriorated and unable to proceed ostomy with hernia but stable ostomy viable with output will cont to monitor (2) Abdominal pain Assessment & Plan: okay for diet via feeding tube as per GI nutritional support as needs it DAILY ESTIMATED NEEDS: Needs based on DM, renal dysfunction, wound/ 64kg abw 25-30 kcals/kg 8913-1353 total kcals 1-1.5 g protein/kg 64-96 g total protein 25-30 mL/kg 2009-1710 total fluid mLs NUTRITION DIAGNOSIS: * Swallowing difficulty R/T dysphagia, decreased cognitive fxn as evidenced by pt is GT dependent * Altered nutrition related lab values R/T renal dysfunction, diabetes, dehydration as evidenced by elev creat (2.1), elev BGs (200, 102), A1C of 7.6, elev Na (148). * Increased kcal/prot/micronutrients needs R/T wound healing as evidenced by pt admitted w/ sacral wound, stage 1 per RN. CURRENT TF:NPO ENTERAL NUTRITION RECOMMENDATIONS: Nepro @ 40ml/hr x 24 hrs to provide 960ml, 1728kcal, 77g prot, 698ml free water * Pt on Nepro CREDIT REVIEW ANALYST, rec to maintain Nepro to keep electrolytes wnl * S/p GT replacement, initiate Nepro @ 20ml/hr x 6 hrs, advance 10ml q 4-6 hrs as tolerated to goal rate. * HOB over 30 degrees/ water flush per MD. ADDITIONAL RECOMMENDATIONS: * Per SNF, ht=5'5" aw=[id number] (09/23/18) -> bedscale wt on 10/21=69.3kg (152.4 lbs) * Monitor lytes dailly, replete as needed * Rec to continue CREDIT REVIEW ANALYST TF of Nepro to maintain electrolytes wnl. * Monitor BGs, need for long acting insulin (pt on Levemir CREDIT REVIEW ANALYST) * Wound healing: add MVI x1, Vit C 250mg QD : add Mahendra 1pkt BID (3) Malfunction of percutaneous endoscopic gastrostomy (PEG) tube (4) Parastomal hernia Assessment & Plan: has been present for some time and stable unfortunately cannot repair or takedown now will monitor Additional Comments d/c planning for today dressings as above ostomy care f/u prn thank you time of note does not reflect when patient seen Praveen Traylor Oct 26, 2018 18:46
--- NOTE | 2018-10-27 09:12 | Discharge Summary ---
Discharge Summary Discharge Summary _ DATE OF ADMISSION: 10/20/2018 DATE OF DISCHARGE: 10/26/2018 DISCHARGED BY: Dr. Sin REASON FOR ADMISSION: 82 years old male with past medical history of chronic renal failure, hypertension, dysphagia, G-tube feeding, diverting colostomy, and dementia, anemia, GERD, presented for evaluation due to dislodged G-tube along with worsening renal failure and hypoglycemia. Nursing staff at the facility was able to place 16 [place] to maintain the patient ostomy. Patient was hypoglycemic with blood sugar of 60 at the facility. Patient received glucagon , and per EMS blood sugar reading was in 160s. Patient by himself nonverbal and was unable to provide any history. Upon evaluation vital signs were stable. Laboratory work-up revealed leukocytosis WBC 18.8, hemoglobin 11.4, hematocrit 38. Platelet count 225. Urinalysis revealed +3 protein , +3 blood, but no evidence of UTI. Sodium 154 . BUN 71 , creatinine 2.2 . Lactic acid 1.1. Glucose 102. AST 63 , ALT 102. CK 978. Albumin 2.5. Troponin negative . Patient admitted for malfunctioning percutaneous endoscopic gastrostomy tube , hypernatremia, abnormal liver enzymes CONSULTANTS: ID specialist Dr. Orantes GI specialist Dr. Ochoa slabbing machine operator Dr. Hoyos intensive care ambulance paramedic/oncologist Dr. Reese surgery Dr. Traylor best worker Dr. Lu [facility]SE: Patient admitted to medical surgical floor. GI specialist followed. G-tube 18 Lithuanian gauge was replaced at the bedside. Chest x-ray confirmed placement. Tube feeding started as per acute dialysis registered nurse recommendations in regard to tube formula and goal rate . Strict aspiration precautions maintained. G-tube site care provided. Patient started on the GI prophylaxis with PPI. Venous Doppler of bilateral lower extremity revealed no evidence of acute DVT. Chest x-ray demonstrated left ventricular patchy infiltrate, right basilar infiltrate and/ or atelectasis -new since prior study in August 2018. Right upper lobe interstitial opacity suspected to be chronic , given similarity on the previous exam. Supplemental oxygen was on board as needed to keep pulse oximetry above 92%. Pulse oximetry was stable on room air. Infectious disease specialist followed. Patient initially was on antibiotics for suspected pneumonia. Follow-up chest x-ray demonstrated no significant interval change to the prior chest x-ray. Persistent reticular interstitial opacities in bilateral lungs and subsegmental atelectasis in the right lung base. Leukocytosis resolved. No fevers. Antibiotics were stopped as per ID specialist recommendations. Per ID specialist, likely chronic infiltrates,. Ortho Tech closely followed. Renal parameters and electrolytes were closely monitored. Patient received IV fluids with D5 water. Sodium trended down from initial 154 down to 148. Electrolytes further corrected as needed , and nephrotoxins were avoided. LFT trended down : AST from initial 63 down to 30 and ALT from 102 down to 52. Hemoglobin and hematocrit were closely monitored with goal to keep hemoglobin above 7. Stool for occult blood was negative. Prior to discharge hemoglobin 10.2, hematocrit 23.7. Soccer Ball Assembler followed. Blood sugar was managed with long-acting insulin and sliding scale of insulin as needed. Hemoglobin A1c 7.6. Surgeon seen the patient for diverting colostomy. Patient was considered takedown in the past, but unfortunately patient deteriorated and was unable to proceed with the plan. Ostomy noted to be with hernia, but remained stable. Ostomy viable with good output. Pain management was addressed as needed. Supportive care provided. Ostomy care continued. Patient clinically stabilized and was ready for transfer back to snf facility for continuation of care. FINAL DIAGNOSES: Malfunction of percutaneous endoscopic gastrostomy tube, status post change Dysphagia, G tube feeding History of CVA with expressive aphasia Hypernatremia Dehydration Acute on chronic renal failure Electrolyte abnormalities GERD Diverting colostomy Parastomal hernia Leukocytosis -resolved Diabetes mellitus with initial episode of hypoglycemia Chronic lung infiltrates Anemia of chronic disease, multifactorial Hypertension Rhabdomyolysis Dementia Hypoalbuminemia Elevated LFT- resolved DISCHARGE MEDICATIONS: See Medication Reconciliation list. DISCHARGE INSTRUCTIONS: Patient was discharged to the snf facility. Follow up with medical doctor at the facility. I have been assigned to dictate discharge summary for this account. I was not involved in the patient's management. Aggie Spear NP Oct 27, 2018 09:12
== END 2018-10-26 14:02 | DRG 871 ==
LOC: EDUNIT# 11:26 → EDBD 11:26 → EMR 12:20 → 4E 13:29 → EDBEDREQ 14:35 → 4E 10-22 18:38
PROC: 0D20XUZ Change Feeding Device in Upper Intestinal Tract, External Approach (ICD-10-PCS; principal; 2018-10-21)
DX: A41.9 Sepsis, unspecified organism (principal); E43 Unspecified severe protein-calorie malnutrition; N17.9 Acute kidney failure, unspecified; K94.23 Gastrostomy malfunction; E87.0 Hyperosmolality and hypernatremia; M62.82 Rhabdomyolysis; I12.9 Hypertensive chronic kidney disease with stage 1 through stage 4 chronic kidney disease, or unspecified chronic kidney disease; N18.9 Chronic kidney disease, unspecified; E86.0 Dehydration; D63.1 Anemia in chronic kidney disease; F03.90 Unspecified dementia, unspecified severity, without behavioral disturbance, psychotic disturbance, mood disturbance, and anxiety; K43.5 Parastomal hernia without obstruction or gangrene; I69.320 Aphasia following cerebral infarction; R13.10 Dysphagia, unspecified; Y83.3 Surgical operation with formation of external stoma as the cause of abnormal reaction of the patient, or of later complication, without mention of misadventure at the time of the procedure; K21.9 Gastro-esophageal reflux disease without esophagitis; Z93.3 Colostomy status; L89.151 Pressure ulcer of sacral region, stage 1; E11.65 Type 2 diabetes mellitus with hyperglycemia; F09 Unspecified mental disorder due to known physiological condition; H40.9 Unspecified glaucoma; E87.8 Other disorders of electrolyte and fluid balance, not elsewhere classified; E11.22 Type 2 diabetes mellitus with diabetic chronic kidney disease; Z22.322 Carrier or suspected carrier of Methicillin resistant Staphylococcus aureus; Z68.25 Body mass index [BMI] 25.0-25.9, adult
CPT/HCPCS: 36415; 71045; 74018; 80048; 80053; 81003; 82270; 82550; 82962; 83036; 83605; 83735; 83880; 84100; 84300; 84443; 84484; 84550; 85007; 85025; 86140; 87081; 93970; 99285; J1815; J8499; S5561

== ENCOUNTER 2019-01-31 10:42 | Inpatient (IN) | payer MEDICARE, OTHER ==
[~2019-01-31] VITALS: Ht 185.4 cm; Wt 85.8 kg
[2019-01-31 10:45] VITALS: BP 139/58
[2019-01-31] MEDS ORDERED: Albuterol ud Inhalation HHN ONE (10:45)
[2019-01-31] MEDS ORDERED: Solu-MEDROL 125mg Inj IVP ONE (10:45)
[2019-01-31] MEDS ORDERED: Ipratropium 0.02% Inh Soln 2.5ml UD HHN ONE (10:45)
--- NOTE | 2019-01-31 10:45 | NUR ---
ED Nurse Note: Patient arrived by ambulance from rehab facility. Per EMS, staff called d/t patient being less responsive than normal. Per EMS, rehab staff stated patient normally makes sounds, grunts, or moves arms, but today patient is non responsive. Patient VSS, breathing spontaneously with good O2 sat on RA. Blood sugar checked by staff and by EMS, which were 136 and 128. Patient currenly non-verbal, responsive to pain. Blood drawn and sent to lab.
[2019-01-31] MEDS ORDERED: Albuterol ud Inhalation ONE ×2 (11:17→11:18)
[2019-01-31] MEDS ORDERED: Ipratropium 0.02% Inh Soln 2.5ml UD ONE (11:17)
[2019-01-31 11:23] LABS: BASOPHILS % (AUTO) 0.8 % (0.0-2.0); EOSINOPHILS % (AUTO) 9.6 % (0.0-3.0); HEMATOCRIT 29.4 % (42.0-52.0); HEMOGLOBIN 8.9 G/DL (14.2-18.0); LYMPHOCYTES % (AUTO) 13.9 % (20.0-45.0); MEAN CORPUSCULAR VOLUME 88 FL (80-99); NEUTROPHILS % (AUTO) 66.6 % (45.0-75.0); PLATELET COUNT 266 K/UL (150-450); RED BLOOD COUNT 3.35 M/UL (4.70-6.10); RED CELL DISTRIBUTION WIDTH 18.2 % (11.6-14.8); WHITE BLOOD COUNT 9.3 K/UL (4.8-10.8)
[2019-01-31 11:31] LABS: ANION GAP 8 mmol/L (5-15); BLOOD UREA NITROGEN 37 mg/dL (7-18); CALCIUM 9.5 MG/DL (8.5-10.1); CARBON DIOXIDE 26 MMOL/L (21-32); CHLORIDE 107 MMOL/L (98-107); POTASSIUM 4.8 MMOL/L (3.5-5.1); SODIUM 141 MMOL/L (136-145)
--- NOTE | 2019-01-31 11:36 | Emergency Room Report ---
History of Present Illness General Chief Complaint: Altered Level of Consciousness Source: Medical Record, EMS Present Illness HPI Patient presents with altered level of consciousness. In addition to that there is allegedly been a cough. Patient usually moans with stimulation but now is unresponsive. Paramedics performed Accu-Chek which was 137. A 12-lead was performed which was without injury but PVCs were present. Initial oxygen saturation was 76%. This improved with oxygen administered by paramedics. The patient is unable to provide a history. Patient admitted October this year - d/c Dx: Malfunction of percutaneous endoscopic gastrostomy tube, status post change Dysphagia, G tube feeding History of CVA with expressive aphasia Hypernatremia Dehydration Acute on chronic renal failure Electrolyte abnormalities GERD Diverting colostomy Parastomal hernia Leukocytosis -resolved Diabetes mellitus with initial episode of hypoglycemia Chronic lung infiltrates Anemia of chronic disease, multifactorial Hypertension Rhabdomyolysis Dementia Hypoalbuminemia Elevated LFT- resolved Before - admitted for pneumonia in July. Allergies: Coded Allergies: No Known Allergies (Verified , 12/29/06) Patient History Limited by: medical condition Past Medical History: see triage record, old chart reviewed Social History: Denies: smoking, alcohol use, drug use Social History Narrative full code Reviewed Nursing Documentation: PMH: Agreed; PSxH: Agreed Nursing Documentation-PMH Hx Cardiac Problems: Yes Hx Hypertension: Yes Hx Diabetes: Yes Hx Cancer: No Hx Gastrointestinal Problems: Yes - G TUBE/ COLOSTOMY Hx Neurological Problems: Yes Hx Cerebrovascular Accident: Yes Hx Dementia: Yes Hx Dysphasia: Yes Review of Systems All Other Systems: limited Physical Exam Vital Signs Date Time Temp Pulse Resp B/P (MAP) Pulse Ox O2 Delivery O2 Flow Rate FiO2 01/31/19 10:35 84 22 139/58 (85) 95 Non-Rebreather 15.0 01/31/19 11:15 21 Sp02 EP Interpretation: reviewed, abnormal - interpreted as low by me General Appearance: lethargic, Chronically Ill Head: normocephalic, atraumatic Eyes: bilateral eye PERRL ENT: moist mucus membranes Neck: supple, no bony tend Respiratory: rales - R ant lungs, rhonchi Cardiovascular #1: regular rate, rhythm, edema - trace - + LE Cardiovascular #2: 2+ radial (L) Gastrointestinal: other - G tube, decreased bowel sounds Genitourinary: no CVA tenderness Musculoskeletal: other - some contractures Neurologic: sensory intact, motor weakness - all extremities, responsive - minimally to pain Psychiatric: other - lethargic Skin: Decubitus/Ulcer Medical Decision Making Diagnostic Impression: Primary Impression: Right lower lobe pneumonia Qualified Codes: J18.9 - Pneumonia, unspecified organism Additional Impressions: Chronic renal failure Qualified Codes: N18.9 - Chronic kidney disease, unspecified COPD exacerbation ER Course Patient presents with altered level of consciousness, hypoxia and history of cough. Differential includes pneumonia, acute myocardial infarction, bronchitis , exacerbation of COPD, electrolyte imbalance, dehydration, stroke amongst others. Evaluation with EKG, chest x-ray and labs. Treatment with Solu-Medrol , breathing treatments and oxygen and IV hydration. Patient is placed on a property assessment monitor. Patient is a complicated patient which requires extensive work -up and diligent treatment. EKG with normal sinus rhythm and frequent PVCs no injury. Chest x-ray with right lower lobe infiltrate which is new from the previous x-ray on admission. Labs significant for normal white count. CMP remarkable for chronic renal failure. These values are slightly improved from last hospitalization. Troponin and lactate are normal. Urinalysis urinalysis no evidence of infection. Antibiotics begun for right lower lobe infiltrate. (At one point the lab suggested that the patient had a positive influenza swab. There later stated this was reported in error.) Improved mentation with breathing treatments and hydration. Looks at person calling his name but unable to communicate. Occasionally moaning and responding to external stimuli. Admit tele, Dr. Butler. Laboratory Tests Test 01/31/19 11:00 01/31/19 13:40 White Blood Count 9.3 K/UL (4.8-10.8) Red Blood Count 3.35 M/UL (4.70-6.10) L Hemoglobin 8.9 G/DL (14.2-18.0) L Hematocrit 29.4 % (42.0-52.0) L Mean Corpuscular Volume 88 FL (80-99) Mean Corpuscular Hemoglobin 26.6 PG (27.0-31.0) L Mean Corpuscular Hemoglobin Concent 30.4 G/DL (32.0-36.0) L Red Cell Distribution Width 18.2 % (11.6-14.8) H Platelet Count 266 K/UL (150-450) Mean Platelet Volume 6.2 FL (6.5-10.1) L Neutrophils (%) (Auto) 66.6 % (45.0-75.0) Lymphocytes (%) (Auto) 13.9 % (20.0-45.0) L Monocytes (%) (Auto) 9.0 % (1.0-10.0) Eosinophils (%) (Auto) 9.6 % (0.0-3.0) H Basophils (%) (Auto) 0.8 % (0.0-2.0) Prothrombin Time 10.4 SEC (9.30-11.50) Prothrombin Time INR 1.0 (0.9-1.1) PTT 28 SEC (23-33) Sodium Level 141 MMOL/L (136-145) Potassium Level 4.8 MMOL/L (3.5-5.1) Chloride Level 107 MMOL/L (98-107) Carbon Dioxide Level 26 MMOL/L (21-32) Anion Gap 8 mmol/L (5-15) Blood Urea Nitrogen 37 mg/dL (7-18) H Creatinine 2.0 MG/DL (0.55-1.30) H Estimate Glomerular Filtration Rate mL/min (>60) Glucose Level 97 MG/DL (74-106) Lactic Acid Level 0.80 mmol/L (0.4-2.0) Calcium Level 9.5 MG/DL (8.5-10.1) Total Bilirubin 0.2 MG/DL (0.2-1.0) Aspartate Amino Transferase (AST) 30 U/L (15-37) Alanine Aminotransferase (ALT) 43 U/L (12-78) Alkaline Phosphatase 167 U/L (46-116) H Total Creatine Kinase 48 U/L (26-308) Troponin I 0.000 ng/mL (0.000-0.056) Pro-B-Type Natriuretic Peptide 2920 pg/mL (0-125) H Total Protein 8.2 G/DL (6.4-8.2) Albumin 2.2 G/DL (3.4-5.0) L Globulin 6.0 g/dL Albumin/Globulin Ratio 0.4 (1.0-2.7) L Urine Color Yellow Urine Appearance Clear Urine pH 6.5 (4.5-8.0) Urine Specific [place] 1.010 (1.005-1.035) Urine Protein Negative (NEGATIVE) Urine Glucose (UA) Negative (NEGATIVE) Urine Ketones 1+ (NEGATIVE) H Urine Blood Negative (NEGATIVE) Urine Nitrite Negative (NEGATIVE) Urine Bilirubin Negative (NEGATIVE) Urine Urobilinogen Normal MG/DL (0.0-1.0) Urine Leukocyte Esterase 1+ (NEGATIVE) H Urine RBC Pending Urine WBC Pending Urine Squamous Epithelial Cells Pending Urine Bacteria Pending EKG Diagnostic Results Rate: normal Rhythm: NSR ST Segments: no acute changes - Right bundle branch block with left anterior fascicular block Rhythm Strip Diag. Results EP Interpretation: yes Rhythm: NSR, other - PVCs rate 75 Chest X-Ray Diagnostic Results Chest X-Ray Diagnostic Results : Chest X-Ray Ordered: Yes # of Views/Limited/Complete: 1 View Indication: Shortness of Breath EP Interpretation: Yes Interpretation: no effusion, no pneumothorax, other - new RLL infiltrate Impression: Other Electronically Signed by: Electronically signed by Pranay York MD Last Vital Signs Date Time Temp Pulse Resp B/P (MAP) Pulse Ox O2 Delivery O2 Flow Rate FiO2 01/31/19 19:52 88 18 100 Room Air 21 85 20 95 01/31/19 16:15 95.5 137/69 (91) 01/31/19 10:35 15.0 Status: improved Disposition: ADMITTED INPATIENT Condition: Serious Pranay York MD Jan 31, 2019 11:36
[2019-01-31 11:41] LABS: ALANINE AMINOTRANSFERASE 43 U/L (12-78); ALBUMIN 2.2 G/DL (3.4-5.0); ALBUMIN/GLOBULIN RATIO 0.4 (1.0-2.7); ALKALINE PHOSPHATASE 167 U/L (46-116); ASPARTATE AMINO TRANSFERASE 30 U/L (15-37); BILIRUBIN,TOTAL 0.2 MG/DL (0.2-1.0); CREATINE KINASE 48 U/L (26-308)
--- NOTE | 2019-01-31 11:44 | Diagnostic Imaging Report ---
Indication: Chest pain, shortness of breath Technique: One view of the chest Comparison: 10/23/2018 Findings: Patient is rotated to the right. Band of atelectasis or scarring is demonstrated right lung base, increased from previous exam. Previously demonstrated left perihilar opacities are no longer clearly evident. No infiltrates otherwise. There is equivocal slight blunting of the right costophrenic sulcus, could indicate a small pleural effusion. Impression: Right basilar atelectasis and/or scarring Possible small right pleural effusion
[2019-01-31] MEDS ORDERED: Oseltamivir 75mg cap ORAL STA (11:49)
[2019-01-31] MEDS ORDERED: Vancomycin 1 GM in NS 275 ML IVPB ONE (12:00)
[2019-01-31] MEDS ORDERED: Piperacillin/Tazobactam 3.375 GM in NS 110 ML IVPB ONE (12:00)
[2019-01-31 12:15] VITALS: BP 128/71
--- NOTE | 2019-01-31 12:15 | NUR ---
ED Nurse Note: Blood glucose recheck 80. Dr. York notified.
[2019-01-31 14:05] VITALS: BP 130/68
[2019-01-31 14:09] LABS: APPEARANCE,URINE CLEAR; BILIRUBIN, URINE NEGATIVE (NEGATIVE); GLUCOSE, URINE (UA) NEGATIVE (NEGATIVE); KETONES,URINE 1+ (NEGATIVE); LEUKOCYTE ESTERASE ,URINE 1+ (NEGATIVE); NITRITE,URINE NEGATIVE (NEGATIVE); PH,URINE 6.5 (4.5-8.0); PROTEIN,URINE NEGATIVE (NEGATIVE); UROBILINOGEN,URINE NORMAL MG/DL (0.0-1.0)
[2019-01-31 14:10] LABS: COLOR,URINE YELLOW
--- NOTE | 2019-01-31 14:10 | NUR ---
ED Nurse Note: Patient resting in bed, no acute distress. VSS.
[2019-01-31 15:40] VITALS: BP 125/79
--- NOTE | 2019-01-31 15:44 | NUR ---
ED Nurse Note: Report given to Mojgan RN
--- NOTE | 2019-01-31 16:00 | NUR ---
NURSE NOTES: Patient alert and oriented x0, nonverbal but groans to shaking. IV site asymptomatic and patent to R ac 20g, saline lock. No belongings with patient upon admission. Pt has R heel redness, blanchable noted, and L heel noted with dry reddened blister. Sacrum reddened but blanchable. R knee redness noted. Wound care protocol initiated and communicated to Dr. Nelson. Gtube in place, colostomy intact and in place. Pt is bedbound, contracted on bilateral lower extremities. Bed alarm on, call light and belongings within reach.
[2019-01-31 16:15] VITALS: BP 137/69
[2019-01-31] MEDS ORDERED: D5 1/2NS 1,000 ML IV SCH (16:15)
--- NOTE | 2019-01-31 16:17 | Consultation ---
Consult Note Consult Note asked to evaluate at the request of dr howard Patient seen in the afternoon of 01/31/19 non verbal examined has colostomy and PEG has no bryson ER: Patient presents with altered level of consciousness. In addition to that there is allegedly been a cough. Patient usually moans with stimulation but now is unresponsive. Paramedics performed Accu-Chek which was 137. A 12-lead was performed which was without injury but PVCs were present. Initial oxygen saturation was 76%. This improved with oxygen administered by paramedics. The patient is unable to provide a history. Hx Cardiac Problems: Yes Hx Hypertension: Yes Hx Diabetes: Yes Hx Gastrointestinal Problems: Yes - G TUBE/ COLOSTOMY Hx Neurological Problems: Yes Hx Cerebrovascular Accident: Yes Hx Dementia: Yes Hx Dysphasia: Yes Assessment/Plan - CRI (chronic renal insufficiency)- elevated K - COPD / Pneumonia - Hypoalbuminemia - S/P colostomy - PEG (percutaneous endoscopic gastrostomy) status - DM DC IV Kayexelate as needed avoid Nephrotoxics adjust meds for renal failure per orders Kid[facility] Gregorio [place] MD Jan 31, 2019 16:16
[2019-01-31] MEDS: Pantoprazole Inj IVP SCH (17:22)
[2019-01-31] MEDS: NovoLOG Insulin Flexpen SUBQ SCH (18:00)
[2019-01-31] MEDS: Albuterol/Ipratropium 3ml neb HHN SCH ×2 (19:52→23:18)
[2019-01-31 20:00] VITALS: BP 134/70
[2019-01-31] MEDS: Cosopt Opth Soln 10 mL Btl BOTH EYES SCH (20:40)
[2019-01-31] MEDS ORDERED: NovoLOG Insulin Flexpen SUBQ SCH (21:00)
--- NOTE | 2019-01-31 21:14 | Pulmonology Progress Note ---
Assessment/Plan Assessment/Plan Pulmonary Consultation HPI: Patient is an 83 year old retirement resident with Past Medical History of Dementia, CVA, Chronic Obstructive Pulmonary Disease, Hypertension, Diabetes , Anemia, CKD, GERD, Previous Diverting Colostomy, PEG for Dysphagia. Admitted with fever, shortness of breath, noted to have right sided infiltrates on CXR Allergies: No Known Allergies Past Medical History: Dementia, CVA, Chronic Obstructive Pulmonary Disease, Hypertension, Diabetes, Anemia, CKD, GERD, Previous Diverting Colostomy, PEG for Dysphagia Physical Exam Vital Signs Noted Date Time Temp Pulse Resp B/P (MAP) Pulse Ox O2 Delivery O2 Flow Rate FiO2 01/31/19 10:35 84 22 139/58 (85) 95 Non-Rebreather 15.0 01/31/19 11:15 21 Chronically ill appearing, pale HEENT: NCAT, moist mm Chest: Occasional Rhonchi Heart: HS1, HS2, RRR Abdomen: SNTND, G tube, Colostomy Extrem: Well perfused, no edema [employer]: Non verbal, no seizures, moving all limbs Impression: Right lower lobe pneumonia Chronic renal failure Chronic Obstructive Pulmonary Disease Dementia Previous CVA, Chronic Obstructive Pulmonary Disease Hypertension Diabetes Anemia GERD Previous Diverting Colostomy PEG for Dysphagia Plan: IV Antibiotics O2 PRN Aspiration Precautions HHN CPT PTAMedications PPX ISS G tube feeds Monitor Labs Laboratory Tests Noted Test 01/31/19 11:00 01/31/19 13:40 White Blood Count 9.3 K/UL (4.8-10.8) Red Blood Count 3.35 M/UL (4.70-6.10) L Hemoglobin 8.9 G/DL (14.2-18.0) L Hematocrit 29.4 % (42.0-52.0) L Mean Corpuscular Volume 88 FL (80-99) Mean Corpuscular Hemoglobin 26.6 PG (27.0-31.0) L Mean Corpuscular Hemoglobin Concent 30.4 G/DL (32.0-36.0) L Red Cell Distribution Width 18.2 % (11.6-14.8) H Platelet Count 266 K/UL (150-450) Mean Platelet Volume 6.2 FL (6.5-10.1) L Neutrophils (%) (Auto) 66.6 % (45.0-75.0) Lymphocytes (%) (Auto) 13.9 % (20.0-45.0) L Monocytes (%) (Auto) 9.0 % (1.0-10.0) Eosinophils (%) (Auto) 9.6 % (0.0-3.0) H Basophils (%) (Auto) 0.8 % (0.0-2.0) Prothrombin Time 10.4 SEC (9.30-11.50) Prothrombin Time INR 1.0 (0.9-1.1) PTT 28 SEC (23-33) Sodium Level 141 MMOL/L (136-145) Potassium Level 4.8 MMOL/L (3.5-5.1) Chloride Level 107 MMOL/L (98-107) Carbon Dioxide Level 26 MMOL/L (21-32) Anion Gap 8 mmol/L (5-15) Blood Urea Nitrogen 37 mg/dL (7-18) H Creatinine 2.0 MG/DL (0.55-1.30) H Estimate Glomerular Filtration Rate mL/min (>60) Glucose Level 97 MG/DL (74-106) Lactic Acid Level 0.80 mmol/L (0.4-2.0) Calcium Level 9.5 MG/DL (8.5-10.1) Total Bilirubin 0.2 MG/DL (0.2-1.0) Aspartate Amino Transferase (AST) 30 U/L (15-37) Alanine Aminotransferase (ALT) 43 U/L (12-78) Alkaline Phosphatase 167 U/L (46-116) H Total Creatine Kinase 48 U/L (26-308) Troponin I 0.000 ng/mL (0.000-0.056) Pro-B-Type Natriuretic Peptide 2920 pg/mL (0-125) H Total Protein 8.2 G/DL (6.4-8.2) Albumin 2.2 G/DL (3.4-5.0) L Globulin 6.0 g/dL Albumin/Globulin Ratio 0.4 (1.0-2.7) L Urine Color Yellow Urine Appearance Clear Urine pH 6.5 (4.5-8.0) Urine Specific [place] 1.010 (1.005-1.035) Urine Protein Negative (NEGATIVE) Urine Glucose (UA) Negative (NEGATIVE) Urine Ketones 1+ (NEGATIVE) H Urine Blood Negative (NEGATIVE) Urine Nitrite Negative (NEGATIVE) Urine Bilirubin Negative (NEGATIVE) Urine Urobilinogen Normal MG/DL (0.0-1.0) Urine Leukocyte Esterase 1+ (NEGATIVE) H Urine RBC Pending Urine WBC Pending Urine Squamous Epithelial Cells Pending Urine Bacteria Pending EKG: Rate: normal Rhythm: NSR ST Segments: no acute changes - Right bundle branch block with left anterior fascicular block CXR: Right basal atelectasis/infiltrate Subjective ROS Limited/Unobtainable: No Allergies: Coded Allergies: No Known Allergies (Verified , 12/29/06) Objective Last 24 Hour Vital Signs Date Time Temp Pulse Resp B/P (MAP) Pulse Ox O2 Delivery O2 Flow Rate FiO2 01/31/19 19:52 88 18 100 Room Air 21 85 20 95 01/31/19 16:44 Room Air 01/31/19 16:20 90 01/31/19 16:15 95.5 91 18 137/69 (91) 91 01/31/19 15:50 98.3 78 18 128/74 99 Room Air 01/31/19 11:15 68 20 96 Room Air 21 01/31/19 11:15 62 18 100 Room Air 21 68 20 96 01/31/19 10:45 84 22 Room Air 01/31/19 10:45 98.4 22 139/58 95 Non-Rebreather 01/31/19 10:35 84 22 139/58 (85) 95 Non-Rebreather 15.0 Microbiology Date/Time Source Procedure Growth Status 01/31/19 11:30 Rectum Received Laboratory Tests 01/31/19 11:00: White Blood Count 9.3, Red Blood Count 3.35L, Hemoglobin 8.9L, Hematocrit 29.4L , Mean Corpuscular Volume 88, Mean Corpuscular Hemoglobin 26.6L, Mean Corpuscular Hemoglobin Concent 30.4L, Red Cell Distribution Width 18.2H, Platelet Count 266, Mean Platelet Volume 6.2L, Neutrophils (%) (Auto) 66.6, Lymphocytes (%) (Auto) 13.9L, Monocytes (%) (Auto) 9.0, Eosinophils (%) (Auto) 9.6H, Basophils (%) (Auto) 0.8, Prothrombin Time 10.4, Prothromb Time International Ratio 1.0, Activated Partial Thromboplast Time 28, Sodium Level 141, Potassium Level 4.8, Chloride Level 107, Carbon Dioxide Level 26, Anion Gap 8, Blood Urea Nitrogen 37H, Creatinine 2.0H, Estimat Glomerular Filtration Rate , Glucose Level 97, Lactic Acid Level 0.80, Calcium Level 9.5, Total Bilirubin 0.2, Aspartate Amino Transf (AST/SGOT) 30, Alanine Aminotransferase ( ALT/SGPT) 43, Alkaline Phosphatase 167H, Total Creatine Kinase 48, Troponin I 0.000, Pro-B-Type Natriuretic Peptide 2920H, Total Protein 8.2, Albumin 2.2L, Globulin 6.0, Albumin/Globulin Ratio 0.4L 01/31/19 13:40: Urine Color Yellow, Urine Appearance Clear, Urine pH 6.5, Urine Specific [place] 1.010, Urine Protein Negative, Urine Glucose (UA) Negative, Urine Ketones 1+H, Urine Blood Negative, Urine Nitrite Negative, Urine Bilirubin Negative, Urine Urobilinogen Normal, Urine Leukocyte Esterase 1+H, Urine RBC 0, Urine WBC 0-2, Urine Squamous Epithelial Cells None, Urine Bacteria Occasional, Urine Mucus FewH Current Medications Medications (Trade) Dose Ordered Sig/Jared Route PRN Reason Start Time Stop Time Status Last Admin Dose Admin Albuterol/ Ipratropium (Albuterol/ Ipratropium) 3 ml Q4HRT HHN 01/31/19 19:00 02/05/19 18:59 01/31/19 19:52 Dextrose (Dextrose 50%) 25 ml Q30M PRN IV Hypoglycemia 01/31/19 17:00 03/02/19 16:59 Dextrose (Dextrose 50%) 50 ml Q30M PRN IV Hypoglycemia 01/31/19 17:00 03/02/19 16:59 Dextrose/Sodium Chloride 1,000 ml @ 50 mls/hr Q20H IV 01/31/19 16:15 03/02/19 16:14 01/31/19 17:22 Diltiazem HCl (Cardizem) 30 mg Q8HR GT 01/31/19 22:00 03/02/19 21:59 Donepezil HCl (Aricept) 5 mg DAILY GT 02/01/19 09:00 03/03/19 08:59 Dorzolamide/ Timolol (Cosopt) 1 drop BID BOTH EYES 01/31/19 18:00 03/02/19 17:59 01/31/19 20:40 Furosemide (Lasix) 20 mg DAILY IV 02/01/19 09:00 03/03/19 08:59 Heparin Sodium (Porcine) (Heparin 5000 units/ml) 5,000 units EVERY 12 HOURS SUBQ 01/31/19 21:00 03/02/19 20:59 Insulin Aspart (NovoLOG) EVERY 6 HOURS SUBQ 01/31/19 18:00 03/02/19 20:59 Insulin Detemir (Levemir) 30 units BEDTIME SUBQ 01/31/19 21:00 03/02/19 20:59 Pantoprazole (Protonix) 40 mg DAILY IVP 01/31/19 16:15 03/02/19 16:14 01/31/19 17:22 Piperacillin Sod/ Tazobactam Sod 3.375 gm/Sodium Chloride 110 ml @ 27.5 mls/hr Q8HR IVPB 01/31/19 22:00 02/07/19 21:59 Vancomycin HCl (Vanco rx to dose) 1 ea DAILY PRN MISC Per rx protocol 01/31/19 17:00 03/02/19 16:59 Pranay Nelson MD Jan 31, 2019 21:14
[2019-01-31] MEDS: Piperacillin/Tazobactam 3.375 GM in NS 110 ML IVPB SCH (21:20)
[2019-01-31] MEDS: dilTIAZem HCl 30mg tab GT SCH (21:20)
[2019-01-31] MEDS: Levemir Flexpen SUBQ SCH (21:22)
[2019-01-31] MEDS: Heparin 5000 units/ml inj SUBQ SCH (21:23)
[2019-02-01] VITALS: BP 126/74
[2019-02-01] MEDS: NovoLOG Insulin Flexpen SUBQ SCH ×4 (00:12→17:26)
[2019-02-01] MEDS: Albuterol/Ipratropium 3ml neb HHN SCH ×6 (03:44→23:38)
[2019-02-01 04:20] VITALS: BP 138/68
--- NOTE | 2019-02-01 06:10 | Consultation ---
History of Present Illness General Chief Complaint: Altered Level of Consciousness Present Illness Allergies: Coded Allergies: No Known Allergies (Verified , 12/29/06) Medication History Scheduled Diltiazem Hcl* (Cardizem*), 30 MG GT Q8HR, (Reported) Donepezil Hcl* (Donepezil Hcl*), 5 MG GT DAILY, (Reported) Dorzolamide Hcl/Timolol Maleat (Cosopt Eye Drops), 1 DROP BOTH EYES BID, ( Reported) Insulin Aspart (Novolog Flexpen), 6 UNITS SQ BIDAC, (Reported) Insulin Detemir (Levemir), 30 UNITS SUBQ QHS, (Reported) Insulin Detemir (Levemir Flexpen), 75 UNITS SUBQ DAILY, (Reported) Insulin Detemir (Levemir Flexpen), 10 SUBQ BID, (Reported) Multivitamin Liquid* (Multi-Delyn*), 5 ML GT DAILY, (Reported) Potassium Chloride (Potassium Chloride), 20 MEQ GT DAILY, (Reported) Patient History Healthcare decision maker Resuscitation status Full Code Advanced Directive on File Yes Physical Exam Last 24 Hour Vital Signs Date Time Temp Pulse Resp B/P (MAP) Pulse Ox O2 Delivery O2 Flow Rate FiO2 02/01/19 04:20 97.5 94 18 138/68 (91) 96 02/01/19 04:00 89 02/01/19 00:00 84 02/01/19 00:00 97.0 87 18 126/74 (91) 100 01/31/19 23:18 82 20 100 Room Air 21 78 20 95 01/31/19 21:20 83 141/71 01/31/19 21:00 Room Air 01/31/19 20:00 84 01/31/19 20:00 96.8 85 18 134/70 (91) 96 01/31/19 19:52 88 18 100 Room Air 21 85 20 95 01/31/19 16:44 Room Air 01/31/19 16:20 90 01/31/19 16:15 95.5 91 18 137/69 (91) 91 01/31/19 15:50 98.3 78 18 128/74 99 Room Air 01/31/19 11:15 68 20 96 Room Air 21 01/31/19 11:15 62 18 100 Room Air 21 68 20 96 01/31/19 10:45 84 22 Room Air 01/31/19 10:45 98.4 22 139/58 95 Non-Rebreather 01/31/19 10:35 84 22 139/58 (85) 95 Non-Rebreather 15.0 Intake and Output 01/31/19 02/01/19 18:59 06:59 Intake Total 180 ml 890.0 ml Balance 180 ml 890.0 ml Intake Oral 0 ml Free Water 100 ml 100 ml IV Total 50 ml 560.0 ml Tube Feeding 30 ml 230 ml # Voids 1 Laboratory Tests Test 01/31/19 11:00 01/31/19 13:40 White Blood Count 9.3 K/UL (4.8-10.8) Red Blood Count 3.35 M/UL (4.70-6.10) L Hemoglobin 8.9 G/DL (14.2-18.0) L Hematocrit 29.4 % (42.0-52.0) L Mean Corpuscular Volume 88 FL (80-99) Mean Corpuscular Hemoglobin 26.6 PG (27.0-31.0) L Mean Corpuscular Hemoglobin Concent 30.4 G/DL (32.0-36.0) L Red Cell Distribution Width 18.2 % (11.6-14.8) H Platelet Count 266 K/UL (150-450) Mean Platelet Volume 6.2 FL (6.5-10.1) L Neutrophils (%) (Auto) 66.6 % (45.0-75.0) Lymphocytes (%) (Auto) 13.9 % (20.0-45.0) L Monocytes (%) (Auto) 9.0 % (1.0-10.0) Eosinophils (%) (Auto) 9.6 % (0.0-3.0) H Basophils (%) (Auto) 0.8 % (0.0-2.0) Prothrombin Time 10.4 SEC (9.30-11.50) Prothromb Time International Ratio 1.0 (0.9-1.1) Activated Partial Thromboplast Time 28 SEC (23-33) Sodium Level 141 MMOL/L (136-145) Potassium Level 4.8 MMOL/L (3.5-5.1) Chloride Level 107 MMOL/L (98-107) Carbon Dioxide Level 26 MMOL/L (21-32) Anion Gap 8 mmol/L (5-15) Blood Urea Nitrogen 37 mg/dL (7-18) H Creatinine 2.0 MG/DL (0.55-1.30) H Estimat Glomerular Filtration Rate mL/min (>60) Glucose Level 97 MG/DL (74-106) Lactic Acid Level 0.80 mmol/L (0.4-2.0) Calcium Level 9.5 MG/DL (8.5-10.1) Total Bilirubin 0.2 MG/DL (0.2-1.0) Aspartate Amino Transf (AST/SGOT) 30 U/L (15-37) Alanine Aminotransferase (ALT/SGPT) 43 U/L (12-78) Alkaline Phosphatase 167 U/L (46-116) H Total Creatine Kinase 48 U/L (26-308) Troponin I 0.000 ng/mL (0.000-0.056) Pro-B-Type Natriuretic Peptide 2920 pg/mL (0-125) H Total Protein 8.2 G/DL (6.4-8.2) Albumin 2.2 G/DL (3.4-5.0) L Globulin 6.0 g/dL Albumin/Globulin Ratio 0.4 (1.0-2.7) L Urine Color Yellow Urine Appearance Clear Urine pH 6.5 (4.5-8.0) Urine Specific [place] 1.010 (1.005-1.035) Urine Protein Negative (NEGATIVE) Urine Glucose (UA) Negative (NEGATIVE) Urine Ketones 1+ (NEGATIVE) H Urine Blood Negative (NEGATIVE) Urine Nitrite Negative (NEGATIVE) Urine Bilirubin Negative (NEGATIVE) Urine Urobilinogen Normal MG/DL (0.0-1.0) Urine Leukocyte Esterase 1+ (NEGATIVE) H Urine RBC 0 /HPF (0 - 0) Urine WBC 0-2 /HPF (0 - 0) Urine Squamous Epithelial Cells None /LPF (NONE/OCC) Urine Bacteria Occasional /HPF (NONE) Urine Mucus Few /LPF (NONE/OCC) H Microbiology Date/Time Source Procedure Growth Status 01/31/19 11:30 Rectum Received Height (Feet): 6 Height (Inches): 1.00 Weight (Pounds): 190 Medications Current Medications Medications (Trade) Dose Ordered Sig/Jared Route PRN Reason Start Time Stop Time Status Last Admin Dose Admin Albuterol/ Ipratropium (Albuterol/ Ipratropium) 3 ml Q4HRT HHN 01/31/19 19:00 02/05/19 18:59 02/01/19 03:44 Dextrose (Dextrose 50%) 25 ml Q30M PRN IV Hypoglycemia 01/31/19 17:00 03/02/19 16:59 Dextrose (Dextrose 50%) 50 ml Q30M PRN IV Hypoglycemia 01/31/19 17:00 03/02/19 16:59 Dextrose/Sodium Chloride 1,000 ml @ 50 mls/hr Q20H IV 01/31/19 16:15 03/02/19 16:14 01/31/19 17:22 Diltiazem HCl (Cardizem) 30 mg Q8HR GT 01/31/19 22:00 03/02/19 21:59 01/31/19 21:20 Donepezil HCl (Aricept) 5 mg DAILY GT 02/01/19 09:00 03/03/19 08:59 Dorzolamide/ Timolol (Cosopt) 1 drop BID BOTH EYES 01/31/19 18:00 03/02/19 17:59 01/31/19 20:40 Furosemide (Lasix) 20 mg DAILY IV 02/01/19 09:00 03/03/19 08:59 Heparin Sodium (Porcine) (Heparin 5000 units/ml) 5,000 units EVERY 12 HOURS SUBQ 01/31/19 21:00 03/02/19 20:59 01/31/19 21:23 Insulin Aspart (NovoLOG) EVERY 6 HOURS SUBQ 01/31/19 18:00 03/02/19 20:59 02/01/19 00:12 Insulin Detemir (Levemir) 30 units BEDTIME SUBQ 01/31/19 21:00 03/02/19 20:59 01/31/19 21:22 Pantoprazole (Protonix) 40 mg DAILY IVP 01/31/19 16:15 03/02/19 16:14 01/31/19 17:22 Piperacillin Sod/ Tazobactam Sod 3.375 gm/Sodium Chloride 110 ml @ 27.5 mls/hr Q8HR IVPB 01/31/19 22:00 02/07/19 21:59 01/31/19 21:20 Vancomycin HCl (Vanco rx to dose) 1 ea DAILY PRN MISC Per rx protocol 01/31/19 17:00 03/02/19 16:59 Assessment/Plan Assessment/Plan: Hematology Consultation Chief Complaint: AMS and fevers with pna DOS: 02/01/19 RFC: Anemia evaluation, recurrent, likely iron deficiency REQ MD: Rene Nieves ID [id number] old male, well known to me, sent in for pna, has been started on abx, has evaluated the patient, also now with anemia that is worse over past several months. He denies vomiting at this time. He does have a cough. He denies chest pain or shortness of breath. He does feel dehydrated at this time. The patient is a poor historian. He is extremely hard of hearing. No further history is available. The patient has a colostomy, hx of peg. Initially on presentation he was altered but now his mental status has improved, have [facility] RN, Liu. Past medical history Acute hypoxemic respiratory failure requiring BiPAP, resolved Hypertensive urgency, resolved Sepsis secondary to pneumonia Pneumonia Anemia DM2 with the diabetic nephropathy Chronic renal insufficiency Bifascicular bundle branch block History of CVA GERD Dysphagia Status post PEG placement 07/03/2017 G-tube Encephalopathy Diverging colostomy Dementia with behavioral issues Allergies: No Known Allergies (Verified , 12/29/06) Limited by: medical condition Past Medical History: see triage record, old chart reviewed Past Surgical History: other - colostomy, G tube Social History: Denies: alcohol use Social History Narrative long-term facility Reviewed Nursing Documentation: PMH: Agreed; PSxH: Agreed Hx Cardiac Problems: Yes Hx Hypertension: Yes Hx Diabetes: Yes Hx Cancer: No Hx Gastrointestinal Problems: Yes - colostomy Hx Neurological Problems: Yes - dementia Hx Cerebrovascular Accident: Yes Hx Dementia: Yes Review of Systems: limited PE Vital Signs reviewed Gen: no apparent distress, alert, thin, Chronically Ill Neck: supple Respiratory: rhonchi CV: regular rate, rhythm, no edema GI: soft, no mass, non-distended, other - g tube/colostomy Gu: normal inspection Skin: normal inspection, warm/dry Labs: reviewed Imaging:noted Assessment and Recs: # Anemia of iron deficiency due to gi bleed, in the past ferritin was low 42, has required iron therapy, iv on prior admission --> PRIOR w/u has been reviewed --> Anemia workup, ferritin is low at 42-->132, appears at this time to be repleted with iron --> No evidence of hemolysis is noted, peripheral smear has been reviewed. --> Hgb goal >7. Transfuse prn. --> Medications have been reviewed --> gi recs appreciated prn --> trend hgb 9.2 # R lateral nodule and possible chronic effusion. NSBGP, no obstruction. likely pna --> as er pulm eval --> is on abx # Elevated BUN and creatinine. --> per nephro recs # Noncommunicative # Dysphagia s/p peg --> Colostomy bag # Dvt heparin sq The timing of this note does not necessarily reflect the time of the patient was seen. Sohail Reese MD Feb 01, 2019 06:10
[2019-02-01] MEDS: dilTIAZem HCl 30mg tab GT SCH ×3 (06:30→21:14)
[2019-02-01] MEDS: Piperacillin/Tazobactam 3.375 GM in NS 110 ML IVPB SCH ×3 (06:32→21:14)
--- NOTE | 2019-02-01 07:05 | NUR ---
HAND-OFF: Report given to ALDO Duffy.
--- NOTE | 2019-02-01 07:15 | NUR ---
NURSE NOTES: I received the patient resting in bed. Patient is non-verbal. Bed in the lowest position, bed locked, and call light within reach. Patient does not display any signs of distress. Patient's g-tube infusing. I will continue to monitor the patient and implement care.
[2019-02-01 07:33] LABS: HEMATOCRIT 31.8 % (42.0-52.0); HEMOGLOBIN 9.8 G/DL (14.2-18.0); MEAN CORPUSCULAR VOLUME 87 FL (80-99); PLATELET COUNT 295 K/UL (150-450); RED BLOOD COUNT 3.64 M/UL (4.70-6.10); RED CELL DISTRIBUTION WIDTH 18.6 % (11.6-14.8); WHITE BLOOD COUNT 8.5 K/UL (4.8-10.8)
[2019-02-01 07:54] LABS: ALANINE AMINOTRANSFERASE 41 U/L (12-78); ALBUMIN 2.2 G/DL (3.4-5.0); ALBUMIN/GLOBULIN RATIO 0.4 (1.0-2.7); ALKALINE PHOSPHATASE 139 U/L (46-116); ANION GAP 10 mmol/L (5-15); ASPARTATE AMINO TRANSFERASE 19 U/L (15-37); BILIRUBIN,TOTAL 0.2 MG/DL (0.2-1.0); BLOOD UREA NITROGEN 42 mg/dL (7-18); CALCIUM 9.2 MG/DL (8.5-10.1); CARBON DIOXIDE 23 MMOL/L (21-32); CHLORIDE 109 MMOL/L (98-107); FERRITIN 307 NG/ML (8-388); GAMMA GLUTAMYL TRANSPEPTIDASE 4 U/L (5-85); PHOSPHORUS 3.4 MG/DL (2.5-4.9); POTASSIUM 5.3 MMOL/L (3.5-5.1); SODIUM 142 MMOL/L (136-145)
[2019-02-01 08:00] VITALS: BP_SYST 138; BP_SYST 73; BP_DIAS 68; BP_DIAS 73
[2019-02-01 08:12] LABS: % IRON SATURATION 23 % (15-50); IRON 49 ug/dL (50-175); TOTAL IRON BINDING CAPACITY 212 ug/dL (250-450)
[2019-02-01] MEDS: Donepezil 5mg Tab GT SCH (09:19)
[2019-02-01] MEDS: Heparin 5000 units/ml inj SUBQ SCH ×2 (09:20→21:21)
--- NOTE | 2019-02-01 09:37 | NUR ---
RD ASSESSMENT & RECOMMENDATIONS SEE CARE ACTIVITY FOR COMPLETE ASSESSMENT DAILY ESTIMATED NEEDS: Needs based on DM, renal dysfunction, wound/ 64.5kg abw 25-30 kcals/kg 9641-5510 total kcals 1.25-1.5 g protein/kg 81-97 g total protein 25-30 mL/kg 7582-4570 total fluid mLs NUTRITION DIAGNOSIS: * Swallowing difficulty R/T dysphagia, decreased cognitive fxn as evidenced by pt is GT dependent * Altered nutrition related lab values R/T renal dysfunction, diabetes, dehydration as evidenced by elev creat (2.0), elev BGs (174), elev K 5.3 (CURRENT TF: Nepro @40ml) ENTERAL NUTRITION RECOMMENDATIONS: Nepro @ 40ml/hr x 24 hrs + Prosource x1 daily to provide 960ml, 1728kcal, 78g + 11g prot, 698ml free water * Initiate Nepro @ 20ml/hr x 6 hrs, advance 10ml q 4-6 hrs as tolerated to goal rate. * Add prosource 1 pack daily to better meet est pro needs * HOB over 30 degrees/ water flush per MD. ADDITIONAL RECOMMENDATIONS: * Maintain calibrated bed scale wt * F/up w/ WC eval-> rec to add ISAAK BID via PEG * On lasix, monitor lytes daily
[2019-02-01] MEDS ORDERED: Vancomycin 1.5gm/NS Premix q24h IVPB SCH (10:00)
[2019-02-01] MEDS: Pantoprazole Inj IVP SCH (10:32)
[2019-02-01] MEDS: Cosopt Opth Soln 10 mL Btl BOTH EYES SCH ×2 (10:32→17:14)
--- NOTE | 2019-02-01 10:32 | NUR ---
NURSE NOTES: Patient's IV medications administered late due to patient removing IV access. IV access was obtained and medications will be administered off schedule.
[2019-02-01] MEDS ORDERED: Sodium Polystyrene Sulfonate 15gm Powder GT SCH (11:00)
--- NOTE | 2019-02-01 11:00 | Cardiac Electrophysiology PN ---
Subjective Subjective [id number] Frequent PVCs, Bifascicular block, HTN,DM,PEG, Colostomy, Dementia, PNA Objective Last 24 Hour Vital Signs Date Time Temp Pulse Resp B/P (MAP) Pulse Ox O2 Delivery O2 Flow Rate FiO2 02/01/19 09:00 Room Air 02/01/19 08:05 94 20 96 Room Air 21 02/01/19 08:03 95 20 99 Room Air 21 94 20 97 02/01/19 08:00 97.3 92 20 138/73 (94) 96 02/01/19 07:53 90 02/01/19 06:30 94 137/63 02/01/19 04:20 97.5 94 18 138/68 (91) 96 02/01/19 04:00 89 02/01/19 00:00 84 02/01/19 00:00 97.0 87 18 126/74 (91) 100 01/31/19 23:18 82 20 100 Room Air 21 78 20 95 01/31/19 21:20 83 141/71 01/31/19 21:00 Room Air 01/31/19 20:00 84 01/31/19 20:00 96.8 85 18 134/70 (91) 96 01/31/19 19:52 88 18 100 Room Air 21 85 20 95 01/31/19 16:44 Room Air 01/31/19 16:20 90 01/31/19 16:15 95.5 91 18 137/69 (91) 91 01/31/19 15:50 98.3 78 18 128/74 99 Room Air 01/31/19 15:40 98.0 79 18 125/79 99 Room Air 01/31/19 14:05 82 20 130/68 98 Room Air 01/31/19 12:15 98.2 78 19 128/71 99 Room Air 01/31/19 11:15 68 20 96 Room Air 21 01/31/19 11:15 62 18 100 Room Air 21 68 20 96 Intake and Output 01/31/19 02/01/19 18:59 06:59 Intake Total 180 ml 890.0 ml Balance 180 ml 890.0 ml Intake Oral 0 ml Free Water 100 ml 100 ml IV Total 50 ml 560.0 ml Tube Feeding 30 ml 230 ml # Voids 1 Laboratory Tests Test 01/31/19 11:00 01/31/19 13:40 02/01/19 05:58 White Blood Count 9.3 K/UL (4.8-10.8) 8.5 K/UL (4.8-10.8) Red Blood Count 3.35 M/UL (4.70-6.10) L 3.64 M/UL (4.70-6.10) L Hemoglobin 8.9 G/DL (14.2-18.0) L 9.8 G/DL (14.2-18.0) L Hematocrit 29.4 % (42.0-52.0) L 31.8 % (42.0-52.0) L Mean Corpuscular Volume 88 FL (80-99) 87 FL (80-99) Mean Corpuscular Hemoglobin 26.6 PG (27.0-31.0) L 27.0 PG (27.0-31.0) Mean Corpuscular Hemoglobin Concent 30.4 G/DL (32.0-36.0) L 30.9 G/DL (32.0-36.0) L Red Cell Distribution Width 18.2 % (11.6-14.8) H 18.6 % (11.6-14.8) H Platelet Count 266 K/UL (150-450) 295 K/UL (150-450) Mean Platelet Volume 6.2 FL (6.5-10.1) L 6.3 FL (6.5-10.1) L Neutrophils (%) (Auto) 66.6 % (45.0-75.0) % (45.0-75.0) Lymphocytes (%) (Auto) 13.9 % (20.0-45.0) L % (20.0-45.0) Monocytes (%) (Auto) 9.0 % (1.0-10.0) % (1.0-10.0) Eosinophils (%) (Auto) 9.6 % (0.0-3.0) H % (0.0-3.0) Basophils (%) (Auto) 0.8 % (0.0-2.0) % (0.0-2.0) Prothrombin Time 10.4 SEC (9.30-11.50) Prothromb Time International Ratio 1.0 (0.9-1.1) Activated Partial Thromboplast Time 28 SEC (23-33) Sodium Level 141 MMOL/L (136-145) 142 MMOL/L (136-145) Potassium Level 4.8 MMOL/L (3.5-5.1) 5.3 MMOL/L (3.5-5.1) H Chloride Level 107 MMOL/L (98-107) 109 MMOL/L (98-107) H Carbon Dioxide Level 26 MMOL/L (21-32) 23 MMOL/L (21-32) Anion Gap 8 mmol/L (5-15) 10 mmol/L (5-15) Blood Urea Nitrogen 37 mg/dL (7-18) H 42 mg/dL (7-18) H Creatinine 2.0 MG/DL (0.55-1.30) H 2.0 MG/DL (0.55-1.30) H Estimat Glomerular Filtration Rate mL/min (>60) mL/min (>60) Glucose Level 97 MG/DL (74-106) 174 MG/DL (74-106) H Lactic Acid Level 0.80 mmol/L (0.4-2.0) Calcium Level 9.5 MG/DL (8.5-10.1) 9.2 MG/DL (8.5-10.1) Total Bilirubin 0.2 MG/DL (0.2-1.0) 0.2 MG/DL (0.2-1.0) Aspartate Amino Transf (AST/SGOT) 30 U/L (15-37) 19 U/L (15-37) Alanine Aminotransferase (ALT/SGPT) 43 U/L (12-78) 41 U/L (12-78) Alkaline Phosphatase 167 U/L (46-116) H 139 U/L (46-116) H Total Creatine Kinase 48 U/L (26-308) Troponin I 0.000 ng/mL (0.000-0.056) Pro-B-Type Natriuretic Peptide 2920 pg/mL (0-125) H 4594 pg/mL (0-125) H Total Protein 8.2 G/DL (6.4-8.2) 8.3 G/DL (6.4-8.2) H Albumin 2.2 G/DL (3.4-5.0) L 2.2 G/DL (3.4-5.0) L Globulin 6.0 g/dL 6.1 g/dL Albumin/Globulin Ratio 0.4 (1.0-2.7) L 0.4 (1.0-2.7) L Urine Color Yellow Urine Appearance Clear Urine pH 6.5 (4.5-8.0) Urine Specific [place] 1.010 (1.005-1.035) Urine Protein Negative (NEGATIVE) Urine Glucose (UA) Negative (NEGATIVE) Urine Ketones 1+ (NEGATIVE) H Urine Blood Negative (NEGATIVE) Urine Nitrite Negative (NEGATIVE) Urine Bilirubin Negative (NEGATIVE) Urine Urobilinogen Normal MG/DL (0.0-1.0) Urine Leukocyte Esterase 1+ (NEGATIVE) H Urine RBC 0 /HPF (0 - 0) Urine WBC 0-2 /HPF (0 - 0) Urine Squamous Epithelial Cells None /LPF (NONE/OCC) Urine Bacteria Occasional /HPF (NONE) Urine Mucus Few /LPF (NONE/OCC) H Neutrophils % (Manual) Pending Lymphocytes % (Manual) Pending Platelet Estimate Pending Platelet Morphology Pending Uric Acid 6.4 MG/DL (2.6-7.2) Phosphorus Level 3.4 MG/DL (2.5-4.9) Magnesium Level 2.5 MG/DL (1.8-2.4) H Iron Level 49 ug/dL (50-175) L Total Iron Binding Capacity 212 ug/dL (250-450) L Percent Iron Saturation 23 % (15-50) Unsaturated Iron Binding 163 ug/dL (112-346) Ferritin 307 NG/ML (8-388) Gamma Glutamyl Transpeptidase 4 U/L (5-85) L C-Reactive Protein, Quantitative 17.7 mg/dL (0.00-0.90) H Vitamin B12 Level 1541 PG/ML (193-986) H Folate 57.2 NG/ML (8.6-58.9) Thyroid Stimulating Hormone (TSH) 1.460 uiU/mL (0.358-3.740) Random Vancomycin Level 9.1 ug/mL Microbiology Date/Time Source Procedure Growth Status 01/31/19 11:30 Rectum Received Panchito Hardy MD Feb 01, 2019 11:00
[2019-02-01 12:00] VITALS: BP 123/66
--- NOTE | 2019-02-01 15:00 | NUR ---
CASE MANAGEMENT: INITIAL REVIEW 83YR OLD MALE [facility] CC: ALTERED MENTAL STATUS; FOUND UNRESPONSIVE SI: RIGHT LOWER LOBE PNA . COPD EXACERBATION . CHORIONIC RENAL FAILURE . ANEMIA 98.4 84 22 139/58 95% NON-REBREATHER 15L H/H 8.9/29.4 BUN 37 CREAT 2.0 BNP 2920 IS: IVF NS BOLUS X1 IV ZOSYN X1 IV VANCOMYCIN X1 TAMIFLU PO X1 IV SOLUMEDROL X1 PROVENTIL HHN X1 ATROVENT HHN X1 CXRAY \: 2E TELE UNIT DCP: RETURN TO [facility] WHEN MEDICALLY CLEARED CASE MANAGEMENT:REVIEW 02/01/19 SI: RIGHT LOWER LOBE PNA . COPD EXACERBATION . CHORIONIC RENAL FAILURE . ANEMIA 97.3 92 20 138/73 96% ON RA BUN 42 CREAT 2.0 BG 174 MG 2.5 H/H 9.8/31.8 BNP 4594 IS: IV ZOSYN PO Q8HR IV LASIX QD CARDIZEM GT Q8HR DONEPEZIL GT QD ALBUTEROL HHN Q4HR NOVOLOG SQ Q6HR LEVEMIR SQ QHS \: 2E TELE UNIT DCP: RETURN TO [facility] WHEN MEDICALLY CLEARED
[2019-02-01 16:00] VITALS: BP 105/61
--- NOTE | 2019-02-01 16:15 | Consultation ---
DATE OF CONSULTATION: 02/01/2019 CARDIOLOGY CONSULTATION CONSULTING PHYSICIAN: Panchito Hardy M.D. REFERRING PHYSICIAN: Rene Sin M.D. REASON FOR CONSULTATION: Management of hypertension and frequent PVCs. HISTORY OF PRESENT ILLNESS: The patient is an 83-year-old [facility] resident with history of hypertension, COPD, CVA, diabetes, and dementia as well as history of previous diverting colostomy, has history of PEG for dysphagia. The patient was admitted with shortness of breath and fever and was found to have a right-sided infiltrate on chest x-ray. On the EKG, the patient has frequent trigeminal PVCs as well as bifascicular block, right bundle-branch block, and left anterior fascicular block. Cardiac electrophysiology consultation was obtained for further evaluation. At the time of my evaluation, the patient is comfortable and is essentially nonverbal and is unable to provide any information. REVIEW OF SYSTEMS: Cannot be obtained. PAST MEDICAL HISTORY: As mentioned above. FAMILY HISTORY: Noncontributory. SOCIAL HISTORY: He is a [facility] resident. Does not smoke or drink alcohol. PHYSICAL EXAMINATION: VITAL SIGNS: Blood pressure is 138/73, pulse is 95, respirations 18, temperature 97.3. HEAD AND NECK: Showed no JVD. LUNGS: Clear. CARDIOVASCULAR: Shows regular S1 and S2 with no gallop. ABDOMEN: Soft, status post colostomy and G-tube. EXTREMITIES: Nonpitting edema. LABORATORY AND DIAGNOSTIC DATA: His EKG shows sinus rhythm with frequent PVCs, right bundle-branch block, and left anterior fascicular block. Labs show white count of 8.5, hematocrit of 9.8, hematocrit of 31.8, and platelet count of 295. Sodium 142, potassium is 5.3, BUN of 42, creatinine of 2.0, and glucose of 174. First troponin is negative. BNP is 4594. ASSESSMENT AND PLAN: 1. Frequent PVCs. The patient's BNP is also more than 4500. We will get an echocardiogram to evaluate for ejection fraction and wall motion abnormality and completely rule out MA protocol. 2. Hypertension. Continue Cardizem 30 mg every 8 hours and Lasix 20 mg IV daily. 3. Pneumonia, on IV antibiotic. 4. Status post colostomy. 5. Dysphagia, status post PEG placement. 6. Dementia. 7. Diabetes. Thank you very much for allowing me to participate in the care of this patient. Please do not hesitate to contact me for any questions regarding my evaluation. Sincerely, Panchito Hardy M.D. DR: THUAN JOB#: [id number] CC:
--- NOTE | 2019-02-01 17:00 | Consultation ---
DATE OF CONSULTATION: 02/01/2019 INFECTIOUS DISEASE CONSULTATION CONSULTING PHYSICIAN: Cheo Bhagat M.D. PRIMARY ATTENDING: Rene Sin M.D. REASON FOR CONSULT: Pneumonia, bacteremia. HISTORY OF PRESENT ILLNESS: This is an 83-year-old white male who is a senior living resident admitted yesterday with altered mental status. He was also coughing, decrease in O2 saturation. He was found to have abnormal x-ray. He has positive blood culture with gram-positive cocci. He is not a source of history. PAST MEDICAL HISTORY: Significant for CVA with expressive aphasia, chronic kidney disease, status post colostomy, status post G-tube feeding, anemia, hypertension, dementia, diabetes mellitus, COPD. SOCIAL HISTORY: long-term resident. No history of alcohol, drug abuse, or smoking. The patient is single. ALLERGIES: No known drug allergies. MEDICATIONS: Getting Prevacid, Kayexalate 1 dose, vancomycin, Lasix, Aricept, Zosyn, diltiazem, heparin, Levemir insulin, albuterol/ipratropium inhaler, Cosopt eye drops. REVIEW OF SYSTEMS: Unobtainable. The patient is communicating with gesturing. PHYSICAL EXAMINATION: VITAL SIGNS: Temperature is 97.3, pulse 94, blood pressure is 138/73. GENERAL APPEARANCE: No acute distress. Seems to have normal weight. HEAD AND NECK: No oral lesion. Has no teeth. HEART: Normal rate. LUNGS: Clear. ABDOMEN: Soft. There is a big scar of midline surgery. Status post colostomy. Status post G-tube placement. EXTREMITIES: He has no edema. NEUROLOGIC: He is awake, alert, responsive. Seems disoriented. LABORATORY AND DIAGNOSTIC DATA: WBC 8.5, hemoglobin 9.8, platelets 295. Sodium 142, potassium 5.3, chloride 109, bicarb 23, BUN 42, creatinine 2, glucose is 174. Lactic acid is within normal limits. Alkaline phosphatase is slightly elevated at 139. Albumin is 2.2. Chest x-ray showed right basilar atelectasis and scarring. UA showed wbc of 0 to 2, nitrite and leukocyte esterase negative. Blood culture x2 gram-positive cocci in cluster. IMPRESSION: Bacteremia, abnormal chest x-ray, likely pneumonia. Has diabetes mellitus, COPD, CVA with aphasia, chronic kidney disease, hypertension, dementia, hyperkalemia, anemia. RECOMMENDATION: Continue Zosyn and vancomycin. We will follow up the cultures. At the end of my exam, I thank Dr. Sin for involving me in the care of this patient. Cheo Bhagat M.D. DR: ADILENE JOB#: [id number] CC: NAUN
--- NOTE | 2019-02-01 17:44 | Diagnostic Imaging Report ---
Indication: Acute renal failure, abnormal renal function tests, urinary bladder retention Technique: Grayscale and duplex images of the kidneys, retroperitoneum, and bladder were obtained. Comparison: 09/07/2018 Findings: Right kidney measures 10.4 cm in length. Left kidney measures 10.8 cm in length. Right kidney demonstrates normal echogenicity. Left kidney demonstrates increased echogenicity. No hydronephrosis. Multiple cysts are seen in both kidneys. Normal inferior vena cava. Bladder demonstrate a volume of 175 mL. Patient unable to void at the time of exam.. Impression: Slightly increased left renal echogenicity, could indicate medical renal disease. Note that both kidneys appeared echogenic on the prior exam. Negative for hydronephrosis. Incidental finding bilateral renal cysts
--- NOTE | 2019-02-01 19:18 | NUR ---
HAND-OFF: Report given to Valerie Miranda RN.
--- NOTE | 2019-02-01 19:20 | NUR ---
NURSE NOTES: Pt received from ALDO Duffy alert and oriented x1 to name only, groans in response. IV site asymptomatic and patent. Gtube feed tolerated at 40 ml/hr - no abd distention noted, 10 ml gastric residual. Will continue to monitor. Bed in lowest position, call light and belongings within reach.
[2019-02-01 20:00] VITALS: BP 136/67
[2019-02-01] MEDS: Levemir Flexpen SUBQ SCH (21:00)
--- NOTE | 2019-02-01 21:30 | Pulmonology Progress Note ---
Assessment/Plan Assessment/Plan Pulmonary Progress Note HPI: Patient is an 83 [facility] old [facility] resident with Past Medical History of Dementia, CVA, Chronic Obstructive Pulmonary Disease, Hypertension, Diabetes , Anemia, CKD, GERD, Previous Diverting Colostomy, PEG for Dysphagia. Admitted with fever, shortness of breath, noted to have right sided infiltrates on CXR More interactive, tolerating G tube feeds Allergies: No Known Allergies Past Medical History: Dementia, CVA, Chronic Obstructive Pulmonary Disease, Hypertension, Diabetes, Anemia, CKD, GERD, Previous Diverting Colostomy, PEG for Dysphagia Physical Exam Vital Signs Noted Chronically ill appearing HEENT: NCAT, moist mm Chest: CTAB Heart: HS1, HS2, RRR Abdomen: SNTND, G tube, Colostomy Extrem: Well perfused, no edema QUAHOGGER: Non verbal, no seizures, moving all limbs Impression: Right lower lobe pneumonia Chronic renal failure, Cr 2, no hydronephrosis on US Chronic Obstructive Pulmonary Disease Dementia Previous CVA, Chronic Obstructive Pulmonary Disease Hypertension Diabetes Anemia GERD Previous Diverting Colostomy PEG for Dysphagia Plan: IV Antibiotics O2 PRN Aspiration Precautions HHN CPT NIGHT GUARD Medications PPX ISS G tube feeds Monitor Labs Laboratory Tests Noted Test 01/31/19 11:00 01/31/19 13:40 White Blood Count 9.3 K/UL (4.8-10.8) Red Blood Count 3.35 M/UL (4.70-6.10) L Hemoglobin 8.9 G/DL (14.2-18.0) L Hematocrit 29.4 % (42.0-52.0) L Mean Corpuscular Volume 88 FL (80-99) Mean Corpuscular Hemoglobin 26.6 PG (27.0-31.0) L Mean Corpuscular Hemoglobin Concent 30.4 G/DL (32.0-36.0) L Red Cell Distribution Width 18.2 % (11.6-14.8) H Platelet Count 266 K/UL (150-450) Mean Platelet Volume 6.2 FL (6.5-10.1) L Neutrophils (%) (Auto) 66.6 % (45.0-75.0) Lymphocytes (%) (Auto) 13.9 % (20.0-45.0) L Monocytes (%) (Auto) 9.0 % (1.0-10.0) Eosinophils (%) (Auto) 9.6 % (0.0-3.0) H Basophils (%) (Auto) 0.8 % (0.0-2.0) Prothrombin Time 10.4 SEC (9.30-11.50) Prothrombin Time INR 1.0 (0.9-1.1) PTT 28 SEC (23-33) Sodium Level 141 MMOL/L (136-145) Potassium Level 4.8 MMOL/L (3.5-5.1) Chloride Level 107 MMOL/L (98-107) Carbon Dioxide Level 26 MMOL/L (21-32) Anion Gap 8 mmol/L (5-15) Blood Urea Nitrogen 37 mg/dL (7-18) H Creatinine 2.0 MG/DL (0.55-1.30) H Estimate Glomerular Filtration Rate mL/min (>60) Glucose Level 97 MG/DL (74-106) Lactic Acid Level 0.80 mmol/L (0.4-2.0) Calcium Level 9.5 MG/DL (8.5-10.1) Total Bilirubin 0.2 MG/DL (0.2-1.0) Aspartate Amino Transferase (AST) 30 U/L (15-37) Alanine Aminotransferase (ALT) 43 U/L (12-78) Alkaline Phosphatase 167 U/L (46-116) H Total Creatine Kinase 48 U/L (26-308) Troponin I 0.000 ng/mL (0.000-0.056) Pro-B-Type Natriuretic Peptide 2920 pg/mL (0-125) H Total Protein 8.2 G/DL (6.4-8.2) Albumin 2.2 G/DL (3.4-5.0) L Globulin 6.0 g/dL Albumin/Globulin Ratio 0.4 (1.0-2.7) L Urine Color Yellow Urine Appearance Clear Urine pH 6.5 (4.5-8.0) Urine Specific [place] 1.010 (1.005-1.035) Urine Protein Negative (NEGATIVE) Urine Glucose (UA) Negative (NEGATIVE) Urine Ketones 1+ (NEGATIVE) H Urine Blood Negative (NEGATIVE) Urine Nitrite Negative (NEGATIVE) Urine Bilirubin Negative (NEGATIVE) Urine Urobilinogen Normal MG/DL (0.0-1.0) Urine Leukocyte Esterase 1+ (NEGATIVE) H Urine RBC Pending Urine WBC Pending Urine Squamous Epithelial Cells Pending Urine Bacteria Pending EKG: Rate: normal Rhythm: NSR ST Segments: no acute changes - Right bundle branch block with left anterior fascicular block CXR: Right basal atelectasis/infiltrate Subjective ROS Limited/Unobtainable: No Allergies: Coded Allergies: No Known Allergies (Verified , 12/29/06) Objective Last 24 Hour Vital Signs Date Time Temp Pulse Resp B/P (MAP) Pulse Ox O2 Delivery O2 Flow Rate FiO2 02/01/19 21:14 85 132/67 02/01/19 20:00 97.1 90 17 136/67 (90) 94 02/01/19 19:50 64 20 100 Room Air 21 60 20 99 02/01/19 16:00 97.0 104 20 105/61 (76) 96 02/01/19 15:26 92 20 100 Room Air 21 91 20 98 02/01/19 15:25 90 02/01/19 14:13 95 142/62 02/01/19 12:00 97.3 96 18 123/66 (85) 97 02/01/19 11:41 92 02/01/19 11:40 75 20 100 Room Air 21 74 20 98 02/01/19 09:00 Room Air 02/01/19 08:05 94 20 96 Room Air 21 02/01/19 08:03 95 20 99 Room Air 21 94 20 97 02/01/19 08:00 97.3 92 20 138/73 (94) 96 02/01/19 07:53 90 02/01/19 06:30 94 137/63 02/01/19 04:20 97.5 94 18 138/68 (91) 96 02/01/19 04:00 89 02/01/19 00:00 84 02/01/19 00:00 97.0 87 18 126/74 (91) 100 01/31/19 23:18 82 20 100 Room Air 21 78 20 95 Intake and Output 01/31/19 02/01/19 19:00 07:00 Intake Total 190 ml 880.0 ml Balance 190 ml 880.0 ml Intake Oral 0 ml Free Water 100 ml 100 ml IV Total 50 ml 560.0 ml Tube Feeding 40 ml 220 ml # Voids 1 Microbiology Date/Time Source Procedure Growth Status 01/31/19 11:00 Blood Blood Culture - Preliminary Resulted 01/31/19 10:45 Blood Blood Culture - Preliminary Resulted 01/31/19 11:30 Rectum Received Laboratory Tests 02/01/19 05:58: White Blood Count 8.5, Red Blood Count 3.64L, Hemoglobin 9.8L, Hematocrit 31.8L , Mean Corpuscular Volume 87, Mean Corpuscular Hemoglobin 27.0, Mean Corpuscular Hemoglobin Concent 30.9L, Red Cell Distribution Width 18.6H, Platelet Count 295, Mean Platelet Volume 6.3L, Neutrophils (%) (Auto) , Lymphocytes (%) (Auto) , Monocytes (%) (Auto) , Eosinophils (%) (Auto) , Basophils (%) (Auto) , Differential Total Cells Counted 100, Neutrophils % ( Manual) 90H, Lymphocytes % (Manual) 8L, Monocytes % (Manual) 0L, Eosinophils % ( Manual) 0, Basophils % (Manual) 0, Band Neutrophils 2, Platelet Estimate Adequate, Platelet Morphology Normal, Anisocytosis 1+, Sodium Level 142, Potassium Level 5.3H, Chloride Level 109H, Carbon Dioxide Level 23, Anion Gap 10 , Blood Urea Nitrogen 42H, Creatinine 2.0H, Estimat Glomerular Filtration Rate , Glucose Level 174H, Uric Acid 6.4, Calcium Level 9.2, Phosphorus Level 3.4, Magnesium Level 2.5H, Iron Level 49L, Total Iron Binding Capacity 212L, Percent Iron Saturation 23, Unsaturated Iron Binding 163, Ferritin 307, Total Bilirubin 0.2, Gamma Glutamyl Transpeptidase 4L, Aspartate Amino Transf (AST/SGOT) 19, Alanine Aminotransferase (ALT/SGPT) 41, Alkaline Phosphatase 139H, C-Reactive Protein, Quantitative 17.7H, Pro-B-Type Natriuretic Peptide 4594H, Total Protein 8.3H, Albumin 2.2L, Globulin 6.1, Albumin/Globulin Ratio 0.4L, Vitamin B12 Level 1541H, Folate 57.2, Thyroid Stimulating Hormone (TSH) 1.460, Random Vancomycin Level 9.1 Current Medications Medications (Trade) Dose Ordered Sig/Jared Route PRN Reason Start Time Stop Time Status Last Admin Dose Admin Albuterol/ Ipratropium (Albuterol/ Ipratropium) 3 ml Q4HRT HHN 01/31/19 19:00 02/05/19 18:59 02/01/19 19:50 Dextrose (Dextrose 50%) 25 ml Q30M PRN IV Hypoglycemia 01/31/19 17:00 03/02/19 16:59 Dextrose (Dextrose 50%) 50 ml Q30M PRN IV Hypoglycemia 01/31/19 17:00 03/02/19 16:59 Diltiazem HCl (Cardizem) 30 mg Q8HR GT 01/31/19 22:00 03/02/19 21:59 02/01/19 21:14 Donepezil HCl (Aricept) 5 mg DAILY GT 02/01/19 09:00 03/03/19 08:59 02/01/19 09:19 Dorzolamide/ Timolol (Cosopt) 1 drop BID BOTH EYES 01/31/19 18:00 03/02/19 17:59 02/01/19 17:14 Furosemide (Lasix) 20 mg DAILY IV 02/01/19 09:00 03/03/19 08:59 02/01/19 10:32 Heparin Sodium (Porcine) (Heparin 5000 units/ml) 5,000 units EVERY 12 HOURS SUBQ 01/31/19 21:00 03/02/19 20:59 02/01/19 21:21 Insulin Aspart (NovoLOG) EVERY 6 HOURS SUBQ 01/31/19 18:00 03/02/19 20:59 02/01/19 17:26 Insulin Detemir (Levemir) 30 units BEDTIME SUBQ 01/31/19 21:00 03/02/19 20:59 01/31/19 21:22 Lansoprazole (Prevacid) 30 mg BID GT 02/01/19 18:00 03/03/19 17:59 02/01/19 17:14 Piperacillin Sod/ Tazobactam Sod 3.375 gm/Sodium Chloride 110 ml @ 27.5 mls/hr Q8HR IVPB 01/31/19 22:00 02/07/19 21:59 02/01/19 21:14 Vancomycin HCl (Vanco rx to dose) 1 ea DAILY PRN MISC Per rx protocol 01/31/19 17:00 03/02/19 16:59 Pranay Nelson MD Feb 01, 2019 21:30
--- NOTE | 2019-02-01 21:57 | General Progress Note ---
Assessment/Plan Assessment/Plan: Assessment - CVA/OBS/Dysphagia - s/p gastrostomy tube - s/p LLQ colostomy - CRF - Anemia - PNA Recommendations - continue TF - GT care - Elevate HOB - Abx - routine colostomy care - follow labs - nephro - watch K level Thank you Keyanna Avelar MD, Subjective Allergies: Coded Allergies: No Known Allergies (Verified , 12/29/06) Objective Last 24 Hour Vital Signs Date Time Temp Pulse Resp B/P (MAP) Pulse Ox O2 Delivery O2 Flow Rate FiO2 02/01/19 21:14 85 132/67 02/01/19 20:00 97.1 90 17 136/67 (90) 94 02/01/19 19:50 64 20 100 Room Air 21 60 20 99 02/01/19 16:00 97.0 104 20 105/61 (76) 96 02/01/19 15:26 92 20 100 Room Air 21 91 20 98 02/01/19 15:25 90 02/01/19 14:13 95 142/62 02/01/19 12:00 97.3 96 18 123/66 (85) 97 02/01/19 11:41 92 02/01/19 11:40 75 20 100 Room Air 21 74 20 98 02/01/19 09:00 Room Air 02/01/19 08:05 94 20 96 Room Air 21 02/01/19 08:03 95 20 99 Room Air 21 94 20 97 02/01/19 08:00 97.3 92 20 138/73 (94) 96 02/01/19 07:53 90 02/01/19 06:30 94 137/63 02/01/19 04:20 97.5 94 18 138/68 (91) 96 02/01/19 04:00 89 02/01/19 00:00 84 02/01/19 00:00 97.0 87 18 126/74 (91) 100 01/31/19 23:18 82 20 100 Room Air 21 78 20 95 Intake and Output 01/31/19 02/01/19 19:00 07:00 Intake Total 190 ml 880.0 ml Balance 190 ml 880.0 ml Intake Oral 0 ml Free Water 100 ml 100 ml IV Total 50 ml 560.0 ml Tube Feeding 40 ml 220 ml # Voids 1 Laboratory Tests 02/01/19 05:58: White Blood Count 8.5, Red Blood Count 3.64L, Hemoglobin 9.8L, Hematocrit 31.8L , Mean Corpuscular Volume 87, Mean Corpuscular Hemoglobin 27.0, Mean Corpuscular Hemoglobin Concent 30.9L, Red Cell Distribution Width 18.6H, Platelet Count 295, Mean Platelet Volume 6.3L, Neutrophils (%) (Auto) , Lymphocytes (%) (Auto) , Monocytes (%) (Auto) , Eosinophils (%) (Auto) , Basophils (%) (Auto) , Differential Total Cells Counted 100, Neutrophils % ( Manual) 90H, Lymphocytes % (Manual) 8L, Monocytes % (Manual) 0L, Eosinophils % ( Manual) 0, Basophils % (Manual) 0, Band Neutrophils 2, Platelet Estimate Adequate, Platelet Morphology Normal, Anisocytosis 1+, Sodium Level 142, Potassium Level 5.3H, Chloride Level 109H, Carbon Dioxide Level 23, Anion Gap 10 , Blood Urea Nitrogen 42H, Creatinine 2.0H, Estimat Glomerular Filtration Rate , Glucose Level 174H, Uric Acid 6.4, Calcium Level 9.2, Phosphorus Level 3.4, Magnesium Level 2.5H, Iron Level 49L, Total Iron Binding Capacity 212L, Percent Iron Saturation 23, Unsaturated Iron Binding 163, Ferritin 307, Total Bilirubin 0.2, Gamma Glutamyl Transpeptidase 4L, Aspartate Amino Transf (AST/SGOT) 19, Alanine Aminotransferase (ALT/SGPT) 41, Alkaline Phosphatase 139H, C-Reactive Protein, Quantitative 17.7H, Pro-B-Type Natriuretic Peptide 4594H, Total Protein 8.3H, Albumin 2.2L, Globulin 6.1, Albumin/Globulin Ratio 0.4L, Vitamin B12 Level 1541H, Folate 57.2, Thyroid Stimulating Hormone (TSH) 1.460, Random Vancomycin Level 9.1 Height (Feet): 6 Height (Inches): 1.00 Weight (Pounds): 190 Keyanna Avelar MD Feb 01, 2019 21:57
[2019-02-02] VITALS: BP 138/73
--- NOTE | 2019-02-02 00:30 | History and Physical Report ---
DATE OF ADMISSION: 01/31/2019 HISTORY OF PRESENT ILLNESS: The patient was admitted for pneumonia. The patient has expressive aphasia from prior strokes. We cannot get any reliable history from the patient. The patient also has organic brain syndrome and history of dysphagia. The patient had altered mental status and hypoxia at the halfway and came via 911. The patient was admitted for pneumonia as well as COPD exacerbation. The patient also had some mild wheezing initially and cannot get any further history from the patient. 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 PAST SURGICAL HISTORY: History of repair of megacolon, status post colostomy, status post PEG. ALLERGIES: No known allergies. MEDICATIONS: Diltiazem, benazepril, dorzolamide, Levemir, multivitamin, and potassium supplement. FAMILY HISTORY: Unable to obtain. SOCIAL HISTORY: No history of smoking, alcohol, or street drugs. Comes from a halfway. REVIEW OF SYSTEMS: Unable to obtain. The patient has expressive aphasia and unable to give history. PHYSICAL EXAMINATION: VITAL SIGNS: Temperature 97.3, pulse is 96, and blood pressure 123/66. HEENT: PERRLA. NECK: Supple. CHEST: Bibasilar rales. CARDIOVASCULAR: . GASTROINTESTINAL: Soft, distended. G-tube site is intact. Abdomen is soft. EXTREMITIES: 1+ edema. Moves the lower extremities which is chronic. NEUROLOGIC: Expressive aphasia. Cannot follow the neurological exam which is his baseline. LABORATORY DATA: WBC of 9.3, hemoglobin 8.9, and platelets of 266. Sodium 141, potassium 4.8, BUN of 37, and creatinine of 2. Troponin is negative. ASSESSMENT AND PLAN: The patient has pneumonia, respiratory insufficiency, and hypoxia due to pneumonia. I have asked Dr. Nelson and Dr. Cheo Bhagat to see the patient for that reason as well as for COPD exacerbation. Dr. Hoyos has been consulted for acute renal failure on top of chronic renal failure. Dr. Avelar consulted for his multiple GI problems as he has history of diverticulitis, history of megacolon, and history of dysphagia. The patient also had some arrhythmias and PVCs, and Dr. Haley has been consulted for that reason as well as Dr. Avelar, Dr. Hoyos, Dr. Cheo Bhagat, and Dr. Nelson were consulted. Rene Sin M.D. DR: Tonny JOB#: [id number] CC:
[2019-02-02] MEDS: NovoLOG Insulin Flexpen SUBQ SCH ×4 (00:42→18:28)
--- NOTE | 2019-02-02 01:15 | Consultation ---
DATE OF CONSULTATION: 02/01/2019 GASTROENTEROLOGY CONSULTATION CONSULTING PHYSICIAN: Keyanna Avelar M.D. CHIEF COMPLAINT: I was asked to see this patient by Dr. Rene Sin for evaluation of gastrostomy tube and colostomy bag. HISTORY OF PRESENT ILLNESS: The patient is an 83-year-old white man with advanced dementia from a jail, who was brought in due to pneumonia. The patient is somewhat agitated and noncommunicative and no history is available from him. Most information is available from the chart. The patient has been started on his tube feeding and has been tolerating it well. He has been admitted with fever and shortness of breath and was found to have a right-sided infiltrate on chest x-ray. PAST MEDICAL HISTORY: History of pneumonia, chronic renal failure with creatinine at baseline of 2, chronic obstructive pulmonary disease, dementia, history of stroke with contracture deformities, hypertension, diabetes, anemia, gastroesophageal reflux disease, previous history of diverting colostomy status post gastrostomy tube for dysphagia. FAMILY HISTORY: Not available. SOCIAL HISTORY: The patient is a jail resident at this time and requires [id number] care. REVIEW OF SYSTEMS: Otherwise negative. PHYSICAL EXAMINATION: GENERAL: Elderly white man, who is agitated but responsive, seen in his room. HEENT: Normocephalic and atraumatic. The patient is edentulous. NECK: Supple. CHEST: Revealed coarse breath sounds and scattered rhonchi. CARDIOVASCULAR: Revealed regular rate. ABDOMEN: Soft with gastrostomy tube in the left upper quadrant and colostomy bag in the left lower quadrant. The colostomy bag had a burden of soft stool. There was a midline surgical scar. EXTREMITIES: Revealed contracture deformities. NEUROLOGIC: Notable for agitation and dementia. LABORATORY DATA: Noted. ASSESSMENT: This patient presents with longstanding gastrostomy tube feeding and colostomy. The reason for colostomy is unclear from the available notes, but the surgical site is old and therefore maintenance can be continued with the gastrostomy care and colostomy care. The patient should have his head of the bed elevated to reduce the risk of aspiration. He was receiving Nephro which should lower potassium and that should help with his high potassium. RECOMMENDATIONS: Per above discussion and per orders written in the chart. Thank you for asking me to participate in care this patient. Keyanna Avelar M.D. DR: Rangel JOB#: [id number] CC: NAUN
[2019-02-02] MEDS: Albuterol/Ipratropium 3ml neb HHN SCH ×6 (03:09→23:43)
[2019-02-02 04:00] VITALS: BP 112/70
[2019-02-02] MEDS: dilTIAZem HCl 30mg tab GT SCH ×3 (05:56→21:56)
[2019-02-02] MEDS: Piperacillin/Tazobactam 3.375 GM in NS 110 ML IVPB SCH ×3 (05:57→21:56)
[2019-02-02 07:05] LABS: PHOSPHORUS 3.5 MG/DL (2.5-4.9)
--- NOTE | 2019-02-02 07:10 | NUR ---
HAND-OFF: Report given to ALDO Duffy. Plan of care endorsed.
[2019-02-02 07:19] LABS: ALANINE AMINOTRANSFERASE 37 U/L (12-78); ALBUMIN 2.2 G/DL (3.4-5.0); ALBUMIN/GLOBULIN RATIO 0.4 (1.0-2.7); ALKALINE PHOSPHATASE 150 U/L (46-116); ANION GAP 11 mmol/L (5-15); ASPARTATE AMINO TRANSFERASE 17 U/L (15-37); BILIRUBIN,TOTAL 0.2 MG/DL (0.2-1.0); BLOOD UREA NITROGEN 51 mg/dL (7-18); CALCIUM 8.9 MG/DL (8.5-10.1); CARBON DIOXIDE 24 MMOL/L (21-32); CHLORIDE 110 MMOL/L (98-107); POTASSIUM 3.6 MMOL/L (3.5-5.1); SODIUM 145 MMOL/L (136-145)
--- NOTE | 2019-02-02 07:25 | NUR ---
NURSE NOTES: I received the patient awake and resting in bed. Patient alert to name. Bed in the lowest position, wheels locked and bed alarm activated. patient does not display any signs of distress or SOB. Zosyn infusing. I will continue to monitor and implement care.
[2019-02-02 07:48] LABS: HEMATOCRIT 28.1 % (42.0-52.0); HEMOGLOBIN 9.2 G/DL (14.2-18.0); MEAN CORPUSCULAR VOLUME 84 FL (80-99); PLATELET COUNT 282 K/UL (150-450); RED BLOOD COUNT 3.36 M/UL (4.70-6.10); RED CELL DISTRIBUTION WIDTH 16.2 % (11.6-14.8); WHITE BLOOD COUNT 16.3 K/UL (4.8-10.8)
[2019-02-02 08:00] VITALS: BP 144/70
--- NOTE | 2019-02-02 08:55 | General Progress Note ---
Assessment/Plan Assessment/Plan: Assessment - CVA/OBS/Dysphagia - s/p gastrostomy tube - s/p LLQ colostomy - CRF - Anemia - PNA / leukocytosis Recommendations - continue TF - GT care - Elevate HOB - Abx - routine colostomy care - follow labs - nephro - watch K level I will be away until Thursday. Coverage available. Call if questions. Subjective Allergies: Coded Allergies: No Known Allergies (Verified , 12/29/06) Subjective Above noted no events overnight tolerating TF Objective Last 24 Hour Vital Signs Date Time Temp Pulse Resp B/P (MAP) Pulse Ox O2 Delivery O2 Flow Rate FiO2 02/02/19 08:44 79 20 100 Room Air 21 77 20 98 02/02/19 08:00 97.8 91 16 144/70 (94) 93 02/02/19 05:56 90 112/70 02/02/19 04:00 97.6 91 17 112/70 (84) 94 02/02/19 04:00 90 02/02/19 03:09 84 20 100 Room Air 21 81 20 99 02/02/19 00:00 97.3 93 18 138/73 (94) 95 02/02/19 00:00 91 02/01/19 23:28 92 20 97 Room Air 21 90 20 93 02/01/19 21:14 85 132/67 02/01/19 21:00 Room Air 02/01/19 20:00 97.1 90 17 136/67 (90) 94 02/01/19 20:00 91 02/01/19 19:50 64 20 100 Room Air 21 60 20 99 02/01/19 16:00 97.0 104 20 105/61 (76) 96 02/01/19 15:26 92 20 100 Room Air 21 91 20 98 02/01/19 15:25 90 02/01/19 14:13 95 142/62 02/01/19 12:00 97.3 96 18 123/66 (85) 97 02/01/19 11:41 92 02/01/19 11:40 75 20 100 Room Air 21 74 20 98 02/01/19 09:00 Room Air Intake and Output 02/01/19 02/02/19 18:59 06:59 Intake Total 420 ml 460 ml Balance 420 ml 460 ml Free Water 100 ml Tube Feeding 420 ml 360 ml # Voids 2 Laboratory Tests 02/02/19 06:06: White Blood Count 16.3#H, Red Blood Count 3.36L, Hemoglobin 9.2L, Hematocrit 28.1L, Mean Corpuscular Volume 84, Mean Corpuscular Hemoglobin 27.3, Mean Corpuscular Hemoglobin Concent 32.7, Red Cell Distribution Width 16.2H, Platelet Count 282, Mean Platelet Volume 6.0L, Neutrophils (%) (Auto) , Lymphocytes (%) (Auto) , Monocytes (%) (Auto) , Eosinophils (%) (Auto) , Basophils (%) (Auto) , Neutrophils % (Manual) [Pending], Lymphocytes % (Manual) [Pending], Platelet Estimate [Pending], Platelet Morphology [Pending], Sodium Level 145, Potassium Level 3.6, Chloride Level 110H, Carbon Dioxide Level 24, Anion Gap 11, Blood Urea Nitrogen 51H, Creatinine 2.0H, Estimat Glomerular Filtration Rate , Glucose Level 183H, Hemoglobin A1c 6.7H, Uric Acid 5.1, Calcium Level 8.9, Phosphorus Level 3.5, Magnesium Level 2.3, Total Bilirubin 0.2, Gamma Glutamyl Transpeptidase 27, Aspartate Amino Transf (AST/SGOT) 17, Alanine Aminotransferase (ALT/SGPT) 37, Alkaline Phosphatase 150H, Troponin I 0.015, C-Reactive Protein, Quantitative 8.6H, Pro-B-Type Natriuretic Peptide 06131B, Total Protein 7.9, Albumin 2.2L, Globulin 5.7, Albumin/Globulin Ratio 0.4L, Random Vancomycin Level 20.2 Height (Feet): 6 Height (Inches): 1.00 Weight (Pounds): 189 Objective Elderly WM calm NCAT supple Coarse BS RR abd soft , (+) GT LUQ and (+) Ostomy LLQ no edema OBS Keyanna Avelar MD Feb 02, 2019 08:55
[2019-02-02] MEDS: Donepezil 5mg Tab GT SCH (09:21)
[2019-02-02] MEDS: Heparin 5000 units/ml inj SUBQ SCH ×2 (09:22→21:57)
[2019-02-02] MEDS: Cosopt Opth Soln 10 mL Btl BOTH EYES SCH ×2 (09:23→18:27)
--- NOTE | 2019-02-02 10:20 | NUR ---
CASE MANAGEMENT:REVIEW 02/02/19 SI: RLL PNA. COPD CHRONIC RENAL FAILURE 97.8 91 16 144/70 93% ON RA WBC+16.3 H/H-9.2/28.1 BUN+51 CR+2.0 IS: IV LASIX QD IV ZOSYN Q8HRS CARDIZEM GT Q8HR HEPARIN SQ Q12 DUONEB HHN Q4HRS : TELEMETRY DCP: FROM [facility]
--- NOTE | 2019-02-02 10:36 | CDS Physician Query ---
Clarification is required for compliance, coding accuracy, and to reflect severity of illness for this patient Dear Dr. Cheo Bhagat M.D. Date: 02/02/2019 CDS: Vincent Dukes This is an 83-year-old white male who is a detention resident admitted yesterday with altered mental status. He was also coughing, decrease in O2 saturation. He was found to have abnormal x-ray. He has positive blood culture with gram-positive cocci. He is not a source of history. IMPRESSION: Bacteremia, abnormal chest x-ray, likely pneumonia. Has diabetes mellitus, COPD, CVA with aphasia, chronic kidney disease, hypertension, dementia, hyperkalemia, anemia. WBC: 9.3--->16.3 Tx: IV ZOSYN, IV VANCOMYCIN According to the clinical indications above, please indicate below the condition PHYSICIAN RESPONSE: Sepsis SIRS SIRS with organ dysfunction Septic Shock Not applicable Other: Present on Admission: Yes No Clinically Undetermined Physician signature Date Please also document in your Progress Notes and/or Discharge Summary and indicate if the condition was present on admission. NAUN
[2019-02-02 12:00] VITALS: BP 135/53
--- NOTE | 2019-02-02 12:44 | Nephrology Progress Note ---
Assessment/Plan Problem List: (1) Renal failure (ARF), acute on chronic (2) Hypoalbuminemia (3) DM (diabetes mellitus) (4) Anemia Assessment - CRI (chronic renal insufficiency)- elevated K - COPD / Pneumonia - Hypoalbuminemia - S/P colostomy - PEG (percutaneous endoscopic gastrostomy) status - DM Plan DC IV Kayexelate as needed avoid Nephrotoxics adjust meds for renal failure per orders Kidney FIDELINA Subjective ROS Limited/Unobtainable: No Constitutional: Reports: malaise, weakness Objective Objective Last 24 Hour Vital Signs Date Time Temp Pulse Resp B/P (MAP) Pulse Ox O2 Delivery O2 Flow Rate FiO2 02/02/19 12:00 98.1 69 16 135/53 (80) 94 02/02/19 09:00 Room Air 02/02/19 08:44 79 20 100 Room Air 21 77 20 98 02/02/19 08:00 97.8 91 16 144/70 (94) 93 02/02/19 07:29 85 02/02/19 05:56 90 112/70 02/02/19 04:00 97.6 91 17 112/70 (84) 94 02/02/19 04:00 90 02/02/19 03:09 84 20 100 Room Air 21 81 20 99 02/02/19 00:00 97.3 93 18 138/73 (94) 95 02/02/19 00:00 91 02/01/19 23:28 92 20 97 Room Air 21 90 20 93 02/01/19 21:14 85 132/67 02/01/19 21:00 Room Air 02/01/19 20:00 97.1 90 17 136/67 (90) 94 02/01/19 20:00 91 02/01/19 19:50 64 20 100 Room Air 21 60 20 99 02/01/19 16:00 97.0 104 20 105/61 (76) 96 02/01/19 15:26 92 20 100 Room Air 21 91 20 98 02/01/19 15:25 90 02/01/19 14:13 95 142/62 Intake and Output 02/01/19 02/02/19 18:59 06:59 Intake Total 420 ml 460 ml Balance 420 ml 460 ml Free Water 100 ml Tube Feeding 420 ml 360 ml # Voids 2 Laboratory Tests 02/02/19 06:06: White Blood Count 16.3#H, Red Blood Count 3.36L, Hemoglobin 9.2L, Hematocrit 28.1L, Mean Corpuscular Volume 84, Mean Corpuscular Hemoglobin 27.3, Mean Corpuscular Hemoglobin Concent 32.7, Red Cell Distribution Width 16.2H, Platelet Count 282, Mean Platelet Volume 6.0L, Neutrophils (%) (Auto) , Lymphocytes (%) (Auto) , Monocytes (%) (Auto) , Eosinophils (%) (Auto) , Basophils (%) (Auto) , Differential Total Cells Counted 100, Neutrophils % ( Manual) 81H, Lymphocytes % (Manual) 13L, Monocytes % (Manual) 6, Eosinophils % ( Manual) 0, Basophils % (Manual) 0, Band Neutrophils 0, Platelet Estimate Adequate, Platelet Morphology Normal, Hypochromasia 2+, Anisocytosis 1+, Spherocytes 1+, Sodium Level 145, Potassium Level 3.6, Chloride Level 110H, Carbon Dioxide Level 24, Anion Gap 11, Blood Urea Nitrogen 51H, Creatinine 2.0H , Estimat Glomerular Filtration Rate , Glucose Level 183H, Hemoglobin A1c 6.7H, Uric Acid 5.1, Calcium Level 8.9, Phosphorus Level 3.5, Magnesium Level 2.3, Total Bilirubin 0.2, Gamma Glutamyl Transpeptidase 27, Aspartate Amino Transf ( AST/SGOT) 17, Alanine Aminotransferase (ALT/SGPT) 37, Alkaline Phosphatase 150H , Troponin I 0.015, C-Reactive Protein, Quantitative 8.6H, Pro-B-Type Natriuretic Peptide 78924K, Total Protein 7.9, Albumin 2.2L, Globulin 5.7, Albumin/Globulin Ratio 0.4L, Random Vancomycin Level 20.2 Height (Feet): 6 Height (Inches): 1.00 Weight (Pounds): 189 General Appearance: no apparent distress Cardiovascular: tachycardia Respiratory/Chest: decreased breath sounds Abdomen: soft, distended Objective no change Gregorio Hoyos MD Feb 02, 2019 12:44
--- NOTE | 2019-02-02 12:51 | Infectious Diseases Prog Note ---
Assessment/Plan Assessment/Plan IMPRESSION: Positive blood culture likely contamination Atelectasis\pneumonia. 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 RECOMMENDATION: Continue Zosyn Discontinue vancomycin. We will follow up the cultures. Subjective ROS Limited/Unobtainable: Yes Constitutional: Denies: fever Allergies: Coded Allergies: No Known Allergies (Verified , 12/29/06) Objective Vital Signs Last 24 Hour Vital Signs Date Time Temp Pulse Resp B/P (MAP) Pulse Ox O2 Delivery O2 Flow Rate FiO2 02/02/19 12:00 98.1 69 16 135/53 (80) 94 02/02/19 11:24 85 02/02/19 09:00 Room Air 02/02/19 08:44 79 20 100 Room Air 21 77 20 98 02/02/19 08:00 97.8 91 16 144/70 (94) 93 02/02/19 07:29 85 02/02/19 05:56 90 112/70 02/02/19 04:00 97.6 91 17 112/70 (84) 94 02/02/19 04:00 90 02/02/19 03:09 84 20 100 Room Air 21 81 20 99 02/02/19 00:00 97.3 93 18 138/73 (94) 95 02/02/19 00:00 91 02/01/19 23:28 92 20 97 Room Air 21 90 20 93 02/01/19 21:14 85 132/67 02/01/19 21:00 Room Air 02/01/19 20:00 97.1 90 17 136/67 (90) 94 02/01/19 20:00 91 02/01/19 19:50 64 20 100 Room Air 21 60 20 99 02/01/19 16:00 97.0 104 20 105/61 (76) 96 02/01/19 15:26 92 20 100 Room Air 21 91 20 98 02/01/19 15:25 90 02/01/19 14:13 95 142/62 Height (Feet): 6 Height (Inches): 1.00 Weight (Pounds): 189 General Appearance: no acute distress HEENT: mucous membranes moist Respiratory/Chest: lungs clear Cardiovascular: normal rate Abdomen: soft, non tender, other - GT in place, s/p colostomy Extremities: no edema Neurologic/Psychiatric: other - sleeping Microbiology Date/Time Source Procedure Growth Status 01/31/19 11:00 Blood Blood Culture - Preliminary Staphylococcus Sp Coag Neg Resulted 01/31/19 10:45 Blood Blood Culture - Preliminary Staphylococcus Sp Coag Neg Resulted 01/31/19 11:30 Nasal Nares MRSA Culture - Final NO METHICILLIN RESISTANT STAPH AUREUS... Complete 01/31/19 11:30 Rectum - Final NO CARBAPENEM-RESISTANT ENTEROBACTERI... Complete 01/31/19 11:30 Rectum VRE Culture - Final Enterococcus Faecalis - Vre Complete Laboratory Tests Test 02/02/19 06:06 White Blood Count 16.3 K/UL (4.8-10.8) #H Red Blood Count 3.36 M/UL (4.70-6.10) L Hemoglobin 9.2 G/DL (14.2-18.0) L Hematocrit 28.1 % (42.0-52.0) L Mean Corpuscular Volume 84 FL (80-99) Mean Corpuscular Hemoglobin 27.3 PG (27.0-31.0) Mean Corpuscular Hemoglobin Concent 32.7 G/DL (32.0-36.0) Red Cell Distribution Width 16.2 % (11.6-14.8) H Platelet Count 282 K/UL (150-450) Mean Platelet Volume 6.0 FL (6.5-10.1) L Neutrophils (%) (Auto) % (45.0-75.0) Lymphocytes (%) (Auto) % (20.0-45.0) Monocytes (%) (Auto) % (1.0-10.0) Eosinophils (%) (Auto) % (0.0-3.0) Basophils (%) (Auto) % (0.0-2.0) Differential Total Cells Counted 100 Neutrophils % (Manual) 81 % (45-75) H Lymphocytes % (Manual) 13 % (20-45) L Monocytes % (Manual) 6 % (1-10) Eosinophils % (Manual) 0 % (0-3) Basophils % (Manual) 0 % (0-2) Band Neutrophils 0 % (0-8) Platelet Estimate Adequate Platelet Morphology Normal Hypochromasia 2+ Anisocytosis 1+ Spherocytes 1+ Sodium Level 145 MMOL/L (136-145) Potassium Level 3.6 MMOL/L (3.5-5.1) Chloride Level 110 MMOL/L (98-107) H Carbon Dioxide Level 24 MMOL/L (21-32) Anion Gap 11 mmol/L (5-15) Blood Urea Nitrogen 51 mg/dL (7-18) H Creatinine 2.0 MG/DL (0.55-1.30) H Estimat Glomerular Filtration Rate mL/min (>60) Glucose Level 183 MG/DL (74-106) H Hemoglobin A1c 6.7 % (4.3-6.0) H Uric Acid 5.1 MG/DL (2.6-7.2) Calcium Level 8.9 MG/DL (8.5-10.1) Phosphorus Level 3.5 MG/DL (2.5-4.9) Magnesium Level 2.3 MG/DL (1.8-2.4) Total Bilirubin 0.2 MG/DL (0.2-1.0) Gamma Glutamyl Transpeptidase 27 U/L (5-85) Aspartate Amino Transf (AST/SGOT) 17 U/L (15-37) Alanine Aminotransferase (ALT/SGPT) 37 U/L (12-78) Alkaline Phosphatase 150 U/L (46-116) H Troponin I 0.015 ng/mL (0.000-0.056) C-Reactive Protein, Quantitative 8.6 mg/dL (0.00-0.90) H Pro-B-Type Natriuretic Peptide 90845 pg/mL (0-125) H Total Protein 7.9 G/DL (6.4-8.2) Albumin 2.2 G/DL (3.4-5.0) L Globulin 5.7 g/dL Albumin/Globulin Ratio 0.4 (1.0-2.7) L Random Vancomycin Level 20.2 ug/mL Current Medications Medications (Trade) Dose Ordered Sig/Jared Route PRN Reason Start Time Stop Time Status Last Admin Dose Admin Albuterol/ Ipratropium (Albuterol/ Ipratropium) 3 ml Q4HRT HHN 01/31/19 19:00 02/05/19 18:59 02/02/19 12:27 Dextrose (Dextrose 50%) 25 ml Q30M PRN IV Hypoglycemia 01/31/19 17:00 03/02/19 16:59 Dextrose (Dextrose 50%) 50 ml Q30M PRN IV Hypoglycemia 01/31/19 17:00 03/02/19 16:59 Diltiazem HCl (Cardizem) 30 mg Q8HR GT 01/31/19 22:00 03/02/19 21:59 02/02/19 05:56 Donepezil HCl (Aricept) 5 mg DAILY GT 02/01/19 09:00 03/03/19 08:59 02/02/19 09:21 Dorzolamide/ Timolol (Cosopt) 1 drop BID BOTH EYES 01/31/19 18:00 03/02/19 17:59 02/02/19 09:23 Furosemide (Lasix) 20 mg DAILY IV 02/01/19 09:00 03/03/19 08:59 02/02/19 09:21 Heparin Sodium (Porcine) (Heparin 5000 units/ml) 5,000 units EVERY 12 HOURS SUBQ 01/31/19 21:00 03/02/19 20:59 02/02/19 09:22 Insulin Aspart (NovoLOG) EVERY 6 HOURS SUBQ 01/31/19 18:00 03/02/19 20:59 02/02/19 12:00 Insulin Detemir (Levemir) 30 units BEDTIME SUBQ 01/31/19 21:00 03/02/19 20:59 01/31/19 21:22 Lansoprazole (Prevacid) 30 mg BID GT 02/01/19 18:00 03/03/19 17:59 02/02/19 09:21 Piperacillin Sod/ Tazobactam Sod 3.375 gm/Sodium Chloride 110 ml @ 27.5 mls/hr Q8HR IVPB 01/31/19 22:00 02/07/19 21:59 02/02/19 05:57 Vancomycin HCl (Vanco rx to dose) 1 ea DAILY PRN MISC Per rx protocol 01/31/19 17:00 03/02/19 16:59 Cheo Bhagat MD Feb 02, 2019 12:51
--- NOTE | 2019-02-02 13:32 | Hematology/Onc Progress Note ---
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 --> Hgb goal >7. Transfuse prn. --> Medications have been reviewed --> gi recs appreciated prn --> trend hgb 9.2 # R lateral nodule and possible chronic effusion. NSBGP, no obstruction. likely pna --> as er pulm eval --> vanco discontinued per id --> on zosyn # Elevated BUN and creatinine. --> per nephro recs # Noncommunicative # Dysphagia s/p peg --> Colostomy bag # Dvt heparin sq The timing of this note does not necessarily reflect the time of the patient was seen. Subjective Allergies: Coded Allergies: No Known Allergies (Verified , 12/29/06) Subjective 02/02: awake and alert, on tele, no acute events, vanco discontinued per ID Objective Objective Current Medications Medications (Trade) Dose Ordered Sig/Jared Route PRN Reason Start Time Stop Time Status Last Admin Dose Admin Albuterol/ Ipratropium (Albuterol/ Ipratropium) 3 ml Q4HRT HHN 01/31/19 19:00 02/05/19 18:59 02/02/19 12:27 Dextrose (Dextrose 50%) 25 ml Q30M PRN IV Hypoglycemia 01/31/19 17:00 03/02/19 16:59 Dextrose (Dextrose 50%) 50 ml Q30M PRN IV Hypoglycemia 01/31/19 17:00 03/02/19 16:59 Diltiazem HCl (Cardizem) 30 mg Q8HR GT 01/31/19 22:00 03/02/19 21:59 02/02/19 05:56 Donepezil HCl (Aricept) 5 mg DAILY GT 02/01/19 09:00 03/03/19 08:59 02/02/19 09:21 Dorzolamide/ Timolol (Cosopt) 1 drop BID BOTH EYES 01/31/19 18:00 03/02/19 17:59 02/02/19 09:23 Furosemide (Lasix) 20 mg DAILY IV 02/01/19 09:00 03/03/19 08:59 02/02/19 09:21 Heparin Sodium (Porcine) (Heparin 5000 units/ml) 5,000 units EVERY 12 HOURS SUBQ 01/31/19 21:00 03/02/19 20:59 02/02/19 09:22 Insulin Aspart (NovoLOG) EVERY 6 HOURS SUBQ 01/31/19 18:00 03/02/19 20:59 02/02/19 12:00 Insulin Detemir (Levemir) 30 units BEDTIME SUBQ 01/31/19 21:00 03/02/19 20:59 01/31/19 21:22 Lansoprazole (Prevacid) 30 mg BID GT 02/01/19 18:00 03/03/19 17:59 02/02/19 09:21 Piperacillin Sod/ Tazobactam Sod 3.375 gm/Sodium Chloride 110 ml @ 27.5 mls/hr Q8HR IVPB 01/31/19 22:00 02/07/19 21:59 02/02/19 05:57 Last 24 Hour Vital Signs Date Time Temp Pulse Resp B/P (MAP) Pulse Ox O2 Delivery O2 Flow Rate FiO2 02/02/19 12:37 79 20 100 Room Air 21 69 20 98 02/02/19 12:00 98.1 69 16 135/53 (80) 94 02/02/19 11:24 85 02/02/19 09:00 Room Air 02/02/19 08:44 79 20 100 Room Air 21 77 20 98 02/02/19 08:00 97.8 91 16 144/70 (94) 93 02/02/19 07:29 85 02/02/19 05:56 90 112/70 02/02/19 04:00 97.6 91 17 112/70 (84) 94 02/02/19 04:00 90 02/02/19 03:09 84 20 100 Room Air 21 81 20 99 02/02/19 00:00 97.3 93 18 138/73 (94) 95 02/02/19 00:00 91 02/01/19 23:28 92 20 97 Room Air 21 90 20 93 02/01/19 21:14 85 132/67 12/10/19 21:00 Room Air 02/01/19 20:00 97.1 90 17 136/67 (90) 94 02/01/19 20:00 91 02/01/19 19:50 64 20 100 Room Air 21 60 20 99 02/01/19 16:00 97.0 104 20 105/61 (76) 96 02/01/19 15:26 92 20 100 Room Air 21 91 20 98 02/01/19 15:25 90 02/01/19 14:13 95 142/62 02/01/19 12:00 97.3 96 18 123/66 (85) 97 02/01/19 11:41 92 02/01/19 11:40 75 20 100 Room Air 21 74 20 98 02/01/19 09:00 Room Air 02/01/19 08:05 94 20 96 Room Air 21 02/01/19 08:03 95 20 99 Room Air 21 94 20 97 02/01/19 08:00 97.3 92 20 138/73 (94) 96 02/01/19 07:53 90 02/01/19 06:30 94 137/63 02/01/19 04:20 97.5 94 18 138/68 (91) 96 02/01/19 04:00 89 02/01/19 00:00 84 02/01/19 00:00 97.0 87 18 126/74 (91) 100 01/31/19 23:18 82 20 100 Room Air 21 78 20 95 01/31/19 21:20 83 141/71 01/31/19 21:00 Room Air 01/31/19 20:00 84 01/31/19 20:00 96.8 85 18 134/70 (91) 96 01/31/19 19:52 88 18 100 Room Air 21 85 20 95 01/31/19 16:44 Room Air 01/31/19 16:20 90 01/31/19 16:15 95.5 91 18 137/69 (91) 91 01/31/19 15:50 98.3 78 18 128/74 99 Room Air 01/31/19 15:40 98.0 79 18 125/79 99 Room Air 01/31/19 14:05 82 20 130/68 98 Room Air Intake and Output 02/01/19 02/02/19 18:59 06:59 Intake Total 420 ml 460 ml Balance 420 ml 460 ml Free Water 100 ml Tube Feeding 420 ml 360 ml # Voids 2 Labs Test 01/31/19 11:00 01/31/19 13:40 02/01/19 05:58 02/02/19 06:06 White Blood Count 9.3 K/UL (4.8-10.8) 8.5 K/UL (4.8-10.8) 16.3 K/UL (4.8-10.8) Red Blood Count 3.35 M/UL (4.70-6.10) 3.64 M/UL (4.70-6.10) 3.36 M/UL (4.70-6.10) Hemoglobin 8.9 G/DL (14.2-18.0) 9.8 G/DL (14.2-18.0) 9.2 G/DL (14.2-18.0) Hematocrit 29.4 % (42.0-52.0) 31.8 % (42.0-52.0) 28.1 % (42.0-52.0) Mean Corpuscular Volume 88 FL (80-99) 87 FL (80-99) 84 FL (80-99) Mean Corpuscular Hemoglobin 26.6 PG (27.0-31.0) 27.0 PG (27.0-31.0) 27.3 PG (27.0-31.0) Mean Corpuscular Hemoglobin Concent 30.4 G/DL (32.0-36.0) 30.9 G/DL (32.0-36.0) 32.7 G/DL (32.0-36.0) Red Cell Distribution Width 18.2 % (11.6-14.8) 18.6 % (11.6-14.8) 16.2 % (11.6-14.8) Platelet Count 266 K/UL (150-450) 295 K/UL (150-450) 282 K/UL (150-450) Mean Platelet Volume 6.2 FL (6.5-10.1) 6.3 FL (6.5-10.1) 6.0 FL (6.5-10.1) Neutrophils (%) (Auto) 66.6 % (45.0-75.0) % (45.0-75.0) % (45.0-75.0) Lymphocytes (%) (Auto) 13.9 % (20.0-45.0) % (20.0-45.0) % (20.0-45.0) Monocytes (%) (Auto) 9.0 % (1.0-10.0) % (1.0-10.0) % (1.0-10.0) Eosinophils (%) (Auto) 9.6 % (0.0-3.0) % (0.0-3.0) % (0.0-3.0) Basophils (%) (Auto) 0.8 % (0.0-2.0) % (0.0-2.0) % (0.0-2.0) Prothrombin Time 10.4 SEC (9.30-11.50) Prothromb Time International Ratio 1.0 (0.9-1.1) Activated Partial Thromboplast Time 28 SEC (23-33) Sodium Level 141 MMOL/L (136-145) 142 MMOL/L (136-145) 145 MMOL/L (136-145) Potassium Level 4.8 MMOL/L (3.5-5.1) 5.3 MMOL/L (3.5-5.1) 3.6 MMOL/L (3.5-5.1) Chloride Level 107 MMOL/L (98-107) 109 MMOL/L (98-107) 110 MMOL/L (98-107) Carbon Dioxide Level 26 MMOL/L (21-32) 23 MMOL/L (21-32) 24 MMOL/L (21-32) Anion Gap 8 mmol/L (5-15) 10 mmol/L (5-15) 11 mmol/L (5-15) Blood Urea Nitrogen 37 mg/dL (7-18) 42 mg/dL (7-18) 51 mg/dL (7-18) Creatinine 2.0 MG/DL (0.55-1.30) 2.0 MG/DL (0.55-1.30) 2.0 MG/DL (0.55-1.30) Estimat Glomerular Filtration Rate mL/min (>60) mL/min (>60) mL/min (>60) Glucose Level 97 MG/DL (74-106) 174 MG/DL (74-106) 183 MG/DL (74-106) Lactic Acid Level 0.80 mmol/L (0.4-2.0) Calcium Level 9.5 MG/DL (8.5-10.1) 9.2 MG/DL (8.5-10.1) 8.9 MG/DL (8.5-10.1) Total Bilirubin 0.2 MG/DL (0.2-1.0) 0.2 MG/DL (0.2-1.0) 0.2 MG/DL (0.2-1.0) Aspartate Amino Transf (AST/SGOT) 30 U/L (15-37) 19 U/L (15-37) 17 U/L (15-37) Alanine Aminotransferase (ALT/SGPT) 43 U/L (12-78) 41 U/L (12-78) 37 U/L (12-78) Alkaline Phosphatase 167 U/L (46-116) 139 U/L (46-116) 150 U/L (46-116) Total Creatine Kinase 48 U/L (26-308) Troponin I 0.000 ng/mL (0.000-0.056) 0.015 ng/mL (0.000-0.056) Pro-B-Type Natriuretic Peptide 2920 pg/mL (0-125) 4594 pg/mL (0-125) 19048 pg/mL (0-125) Total Protein 8.2 G/DL (6.4-8.2) 8.3 G/DL (6.4-8.2) 7.9 G/DL (6.4-8.2) Albumin 2.2 G/DL (3.4-5.0) 2.2 G/DL (3.4-5.0) 2.2 G/DL (3.4-5.0) Globulin 6.0 g/dL 6.1 g/dL 5.7 g/dL Albumin/Globulin Ratio 0.4 (1.0-2.7) 0.4 (1.0-2.7) 0.4 (1.0-2.7) Urine Color Yellow Urine Appearance Clear Urine pH 6.5 (4.5-8.0) Urine Specific [place] 1.010 (1.005-1.035) Urine Protein Negative (NEGATIVE) Urine Glucose (UA) Negative (NEGATIVE) Urine Ketones 1+ (NEGATIVE) Urine Blood Negative (NEGATIVE) Urine Nitrite Negative (NEGATIVE) Urine Bilirubin Negative (NEGATIVE) Urine Urobilinogen Normal MG/DL (0.0-1.0) Urine Leukocyte Esterase 1+ (NEGATIVE) Urine RBC 0 /HPF (0 - 0) Urine WBC 0-2 /HPF (0 - 0) Urine Squamous Epithelial Cells None /LPF (NONE/OCC) Urine Bacteria Occasional /HPF (NONE) Urine Mucus Few /LPF (NONE/OCC) Differential Total Cells Counted 100 100 Neutrophils % (Manual) 90 % (45-75) 81 % (45-75) Lymphocytes % (Manual) 8 % (20-45) 13 % (20-45) Monocytes % (Manual) 0 % (1-10) 6 % (1-10) Eosinophils % (Manual) 0 % (0-3) 0 % (0-3) Basophils % (Manual) 0 % (0-2) 0 % (0-2) Band Neutrophils 2 % (0-8) 0 % (0-8) Platelet Estimate Adequate Adequate Platelet Morphology Normal Normal Anisocytosis 1+ 1+ Uric Acid 6.4 MG/DL (2.6-7.2) 5.1 MG/DL (2.6-7.2) Phosphorus Level 3.4 MG/DL (2.5-4.9) 3.5 MG/DL (2.5-4.9) Magnesium Level 2.5 MG/DL (1.8-2.4) 2.3 MG/DL (1.8-2.4) Iron Level 49 ug/dL (50-175) Total Iron Binding Capacity 212 ug/dL (250-450) Percent Iron Saturation 23 % (15-50) Unsaturated Iron Binding 163 ug/dL (112-346) Ferritin 307 NG/ML (8-388) Gamma Glutamyl Transpeptidase 4 U/L (5-85) 27 U/L (5-85) C-Reactive Protein, Quantitative 17.7 mg/dL (0.00-0.90) 8.6 mg/dL (0.00-0.90) Vitamin B12 Level 1541 PG/ML (193-986) Folate 57.2 NG/ML (8.6-58.9) Thyroid Stimulating Hormone (TSH) 1.460 uiU/mL (0.358-3.740) Random Vancomycin Level 9.1 ug/mL 20.2 ug/mL Hypochromasia 2+ Spherocytes 1+ Hemoglobin A1c 6.7 % (4.3-6.0) Height (Feet): 6 Height (Inches): 1.00 Weight (Pounds): 189 Objective PE Vital Signs reviewed Gen: no apparent distress, alert, thin, Chronically Ill Neck: supple Respiratory: rhonchi CV: regular rate, rhythm, no edema GI: soft, no mass, non-distended, other - g tube/colostomy Gu: normal inspection Skin: normal inspection, warm/dry Sohail Reese MD Feb 02, 2019 13:32
--- NOTE | 2019-02-02 13:40 | NUR ---
NURSE NOTES: Report received from ALDO Duffy. Pt. AOx1. In 2L NC. Denies pain. R hand 22g IV, intact. SL. Bed on lowest position, side rails upx2, brakes engaged. Call light within easy reach.
--- NOTE | 2019-02-02 13:41 | NUR ---
HAND-OFF: Report given to ALDO Quan.
--- NOTE | 2019-02-02 14:49 | Cardiac Electrophysiology PN ---
Assessment/Plan Assessment/Plan 1. Frequent PVCs. The patient's BNP is also more than 4500. Echocardiogram Nl EF and completely ruled out for ND . 2. Hypertension. Continue Cardizem 30 mg every 8 hours and Lasix 3. 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 Increase LAsix to 40 iv daily 4. Pneumonia, on IV antibiotic. 5. Status post colostomy. 6. Dysphagia, status post PEG placement. 7. Dementia. 8. Diabetes. HUSSEIN RN Subjective Subjective Comfortable in NAD. 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, Bifascicular block, Objective Last 24 Hour Vital Signs Date Time Temp Pulse Resp B/P (MAP) Pulse Ox O2 Delivery O2 Flow Rate FiO2 02/02/19 12:37 79 20 100 Room Air 21 69 20 98 02/02/19 12:00 98.1 69 16 135/53 (80) 94 02/02/19 11:24 85 02/02/19 09:00 Room Air 02/02/19 08:44 79 20 100 Room Air 21 77 20 98 02/02/19 08:00 97.8 91 16 144/70 (94) 93 02/02/19 07:29 85 02/02/19 05:56 90 112/70 02/02/19 04:00 97.6 91 17 112/70 (84) 94 02/02/19 04:00 90 02/02/19 03:09 84 20 100 Room Air 21 81 20 99 02/02/19 00:00 97.3 93 18 138/73 (94) 95 02/02/19 00:00 91 02/01/19 23:28 92 20 97 Room Air 21 90 20 93 02/01/19 21:14 85 132/67 02/01/19 21:00 Room Air 02/01/19 20:00 97.1 90 17 136/67 (90) 94 02/01/19 20:00 91 02/01/19 19:50 64 20 100 Room Air 21 60 20 99 02/01/19 16:00 97.0 104 20 105/61 (76) 96 02/01/19 15:26 92 20 100 Room Air 21 91 20 98 02/01/19 15:25 90 Intake and Output 02/01/19 02/02/19 19:00 07:00 Intake Total 460 ml 420 ml Balance 460 ml 420 ml Free Water 100 ml Tube Feeding 460 ml 320 ml # Voids 2 Laboratory Tests Test 02/02/19 06:06 White Blood Count 16.3 K/UL (4.8-10.8) #H Red Blood Count 3.36 M/UL (4.70-6.10) L Hemoglobin 9.2 G/DL (14.2-18.0) L Hematocrit 28.1 % (42.0-52.0) L Mean Corpuscular Volume 84 FL (80-99) Mean Corpuscular Hemoglobin 27.3 PG (27.0-31.0) Mean Corpuscular Hemoglobin Concent 32.7 G/DL (32.0-36.0) Red Cell Distribution Width 16.2 % (11.6-14.8) H Platelet Count 282 K/UL (150-450) Mean Platelet Volume 6.0 FL (6.5-10.1) L Neutrophils (%) (Auto) % (45.0-75.0) Lymphocytes (%) (Auto) % (20.0-45.0) Monocytes (%) (Auto) % (1.0-10.0) Eosinophils (%) (Auto) % (0.0-3.0) Basophils (%) (Auto) % (0.0-2.0) Differential Total Cells Counted 100 Neutrophils % (Manual) 81 % (45-75) H Lymphocytes % (Manual) 13 % (20-45) L Monocytes % (Manual) 6 % (1-10) Eosinophils % (Manual) 0 % (0-3) Basophils % (Manual) 0 % (0-2) Band Neutrophils 0 % (0-8) Platelet Estimate Adequate Platelet Morphology Normal Hypochromasia 2+ Anisocytosis 1+ Spherocytes 1+ Sodium Level 145 MMOL/L (136-145) Potassium Level 3.6 MMOL/L (3.5-5.1) Chloride Level 110 MMOL/L (98-107) H Carbon Dioxide Level 24 MMOL/L (21-32) Anion Gap 11 mmol/L (5-15) Blood Urea Nitrogen 51 mg/dL (7-18) H Creatinine 2.0 MG/DL (0.55-1.30) H Estimat Glomerular Filtration Rate mL/min (>60) Glucose Level 183 MG/DL (74-106) H Hemoglobin A1c 6.7 % (4.3-6.0) H Uric Acid 5.1 MG/DL (2.6-7.2) Calcium Level 8.9 MG/DL (8.5-10.1) Phosphorus Level 3.5 MG/DL (2.5-4.9) Magnesium Level 2.3 MG/DL (1.8-2.4) Total Bilirubin 0.2 MG/DL (0.2-1.0) Gamma Glutamyl Transpeptidase 27 U/L (5-85) Aspartate Amino Transf (AST/SGOT) 17 U/L (15-37) Alanine Aminotransferase (ALT/SGPT) 37 U/L (12-78) Alkaline Phosphatase 150 U/L (46-116) H Troponin I 0.015 ng/mL (0.000-0.056) C-Reactive Protein, Quantitative 8.6 mg/dL (0.00-0.90) H Pro-B-Type Natriuretic Peptide 12141 pg/mL (0-125) H Total Protein 7.9 G/DL (6.4-8.2) Albumin 2.2 G/DL (3.4-5.0) L Globulin 5.7 g/dL Albumin/Globulin Ratio 0.4 (1.0-2.7) L Random Vancomycin Level 20.2 ug/mL Microbiology Date/Time Source Procedure Growth Status 01/31/19 11:00 Blood Blood Culture - Preliminary Staphylococcus Sp Coag Neg Resulted 01/31/19 10:45 Blood Blood Culture - Preliminary Staphylococcus Sp Coag Neg Resulted 01/31/19 11:30 Nasal Nares MRSA Culture - Final NO METHICILLIN RESISTANT STAPH AUREUS... Complete 01/31/19 11:30 Rectum - Final NO CARBAPENEM-RESISTANT ENTEROBACTERI... 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 LUNGS: Clear. CARDIOVASCULAR: Shows regular S1 and S2 with no gallop. ABDOMEN: Soft, status post colostomy and G-tube. EXTREMITIES: Nonpitting edema. Panchito Hardy MD Feb 02, 2019 14:49
[2019-02-02 16:00] VITALS: BP 137/65
--- NOTE | 2019-02-02 18:10 | Pulmonology Progress Note ---
Assessment/Plan Assessment/Plan Pulmonary Progress Note HPI: Patient is an 83 year old snf resident with Past Medical History of Dementia, CVA, Chronic Obstructive Pulmonary Disease, Hypertension, Diabetes , Anemia, CKD, GERD, Previous Diverting Colostomy, PEG for Dysphagia. Admitted with fever, shortness of breath, noted to have right sided infiltrates on CXR More interactive, tolerating G tube feeds Allergies: No Known Allergies Past Medical History: Dementia, CVA, Chronic Obstructive Pulmonary Disease, Hypertension, Diabetes, Anemia, CKD, GERD, Previous Diverting Colostomy, PEG for Dysphagia Physical Exam Vital Signs Noted Chronically ill appearing HEENT: NCAT, moist mm Chest: CTAB Heart: HS1, HS2, RRR Abdomen: SNTND, G tube, Colostomy Extrem: Well perfused, no edema WORKING SECOND HAND: Non verbal, no seizures, moving all limbs Impression: Right lower lobe pneumonia Chronic renal failure, Cr 2, no hydronephrosis on US Chronic Obstructive Pulmonary Disease Dementia Previous CVA, Chronic Obstructive Pulmonary Disease Hypertension Diabetes Anemia GERD Previous Diverting Colostomy PEG for Dysphagia Plan: IV Antibiotics O2 PRN Aspiration Precautions HHN CPT [employer] Medications PPX ISS G tube feeds Monitor Labs Laboratory Tests Noted Test 01/31/19 11:00 01/31/19 13:40 White Blood Count 9.3 K/UL (4.8-10.8) Red Blood Count 3.35 M/UL (4.70-6.10) L Hemoglobin 8.9 G/DL (14.2-18.0) L Hematocrit 29.4 % (42.0-52.0) L Mean Corpuscular Volume 88 FL (80-99) Mean Corpuscular Hemoglobin 26.6 PG (27.0-31.0) L Mean Corpuscular Hemoglobin Concent 30.4 G/DL (32.0-36.0) L Red Cell Distribution Width 18.2 % (11.6-14.8) H Platelet Count 266 K/UL (150-450) Mean Platelet Volume 6.2 FL (6.5-10.1) L Neutrophils (%) (Auto) 66.6 % (45.0-75.0) Lymphocytes (%) (Auto) 13.9 % (20.0-45.0) L Monocytes (%) (Auto) 9.0 % (1.0-10.0) Eosinophils (%) (Auto) 9.6 % (0.0-3.0) H Basophils (%) (Auto) 0.8 % (0.0-2.0) Prothrombin Time 10.4 SEC (9.30-11.50) Prothrombin Time INR 1.0 (0.9-1.1) PTT 28 SEC (23-33) Sodium Level 141 MMOL/L (136-145) Potassium Level 4.8 MMOL/L (3.5-5.1) Chloride Level 107 MMOL/L (98-107) Carbon Dioxide Level 26 MMOL/L (21-32) Anion Gap 8 mmol/L (5-15) Blood Urea Nitrogen 37 mg/dL (7-18) H Creatinine 2.0 MG/DL (0.55-1.30) H Estimate Glomerular Filtration Rate mL/min (>60) Glucose Level 97 MG/DL (74-106) Lactic Acid Level 0.80 mmol/L (0.4-2.0) Calcium Level 9.5 MG/DL (8.5-10.1) Total Bilirubin 0.2 MG/DL (0.2-1.0) Aspartate Amino Transferase (AST) 30 U/L (15-37) Alanine Aminotransferase (ALT) 43 U/L (12-78) Alkaline Phosphatase 167 U/L (46-116) H Total Creatine Kinase 48 U/L (26-308) Troponin I 0.000 ng/mL (0.000-0.056) Pro-B-Type Natriuretic Peptide 2920 pg/mL (0-125) H Total Protein 8.2 G/DL (6.4-8.2) Albumin 2.2 G/DL (3.4-5.0) L Globulin 6.0 g/dL Albumin/Globulin Ratio 0.4 (1.0-2.7) L Urine Color Yellow Urine Appearance Clear Urine pH 6.5 (4.5-8.0) Urine Specific Merrill 1.010 (1.005-1.035) Urine Protein Negative (NEGATIVE) Urine Glucose (UA) Negative (NEGATIVE) Urine Ketones 1+ (NEGATIVE) H Urine Blood Negative (NEGATIVE) Urine Nitrite Negative (NEGATIVE) Urine Bilirubin Negative (NEGATIVE) Urine Urobilinogen Normal MG/DL (0.0-1.0) Urine Leukocyte Esterase 1+ (NEGATIVE) H Urine RBC Pending Urine WBC Pending Urine Squamous Epithelial Cells Pending Urine Bacteria Pending EKG: Rate: normal Rhythm: NSR ST Segments: no acute changes - Right bundle branch block with left anterior fascicular block CXR: Right basal atelectasis/infiltrate Subjective ROS Limited/Unobtainable: No Allergies: Coded Allergies: No Known Allergies (Verified , 12/29/06) Objective Last 24 Hour Vital Signs Date Time Temp Pulse Resp B/P (MAP) Pulse Ox O2 Delivery O2 Flow Rate FiO2 02/02/19 16:00 81 02/02/19 16:00 98.2 82 16 137/65 (89) 97 02/02/19 15:34 79 20 98 Room Air 21 78 20 98 02/02/19 14:56 79 135/53 02/02/19 12:37 79 20 100 Room Air 21 69 20 98 02/02/19 12:00 98.1 69 16 135/53 (80) 94 02/02/19 11:24 85 02/02/19 09:00 Room Air 02/02/19 08:44 79 20 100 Room Air 21 77 20 98 02/02/19 08:00 97.8 91 16 144/70 (94) 93 02/02/19 07:29 85 02/02/19 05:56 90 112/70 02/02/19 04:00 97.6 91 17 112/70 (84) 94 02/02/19 04:00 90 02/02/19 03:09 84 20 100 Room Air 21 81 20 99 02/02/19 00:00 97.3 93 18 138/73 (94) 95 02/02/19 00:00 91 02/01/19 23:28 92 20 97 Room Air 21 90 20 93 02/01/19 21:14 85 132/67 02/01/19 21:00 Room Air 02/01/19 20:00 97.1 90 17 136/67 (90) 94 02/01/19 20:00 91 02/01/19 19:50 64 20 100 Room Air 21 60 20 99 Intake and Output 02/01/19 02/02/19 19:00 07:00 Intake Total 460 ml 420 ml Balance 460 ml 420 ml Free Water 100 ml Tube Feeding 460 ml 320 ml # Voids 2 Microbiology Date/Time Source Procedure Growth Status 01/31/19 11:00 Blood Blood Culture - Preliminary Staphylococcus Sp Coag Neg Resulted 01/31/19 10:45 Blood Blood Culture - Preliminary Staphylococcus Sp Coag Neg Resulted 01/31/19 11:30 Nasal Nares MRSA Culture - Final NO METHICILLIN RESISTANT STAPH AUREUS... Complete 01/31/19 11:30 Rectum - Final NO CARBAPENEM-RESISTANT ENTEROBACTERI... Complete 01/31/19 11:30 Rectum VRE Culture - Final Enterococcus Faecalis - Vre Complete Laboratory Tests 02/02/19 06:06: White Blood Count 16.3#H, Red Blood Count 3.36L, Hemoglobin 9.2L, Hematocrit 28.1L, Mean Corpuscular Volume 84, Mean Corpuscular Hemoglobin 27.3, Mean Corpuscular Hemoglobin Concent 32.7, Red Cell Distribution Width 16.2H, Platelet Count 282, Mean Platelet Volume 6.0L, Neutrophils (%) (Auto) , Lymphocytes (%) (Auto) , Monocytes (%) (Auto) , Eosinophils (%) (Auto) , Basophils (%) (Auto) , Differential Total Cells Counted 100, Neutrophils % ( Manual) 81H, Lymphocytes % (Manual) 13L, Monocytes % (Manual) 6, Eosinophils % ( Manual) 0, Basophils % (Manual) 0, Band Neutrophils 0, Platelet Estimate Adequate, Platelet Morphology Normal, Hypochromasia 2+, Anisocytosis 1+, Spherocytes 1+, Sodium Level 145, Potassium Level 3.6, Chloride Level 110H, Carbon Dioxide Level 24, Anion Gap 11, Blood Urea Nitrogen 51H, Creatinine 2.0H , Estimat Glomerular Filtration Rate , Glucose Level 183H, Hemoglobin A1c 6.7H, Uric Acid 5.1, Calcium Level 8.9, Phosphorus Level 3.5, Magnesium Level 2.3, Total Bilirubin 0.2, Gamma Glutamyl Transpeptidase 27, Aspartate Amino Transf ( AST/SGOT) 17, Alanine Aminotransferase (ALT/SGPT) 37, Alkaline Phosphatase 150H , Troponin I 0.015, C-Reactive Protein, Quantitative 8.6H, Pro-B-Type Natriuretic Peptide 10412J, Total Protein 7.9, Albumin 2.2L, Globulin 5.7, Albumin/Globulin Ratio 0.4L, Random Vancomycin Level 20.2 Current Medications Medications (Trade) Dose Ordered Sig/Jared Route PRN Reason Start Time Stop Time Status Last Admin Dose Admin Albuterol/ Ipratropium (Albuterol/ Ipratropium) 3 ml Q4HRT HHN 01/31/19 19:00 02/05/19 18:59 02/02/19 15:13 Dextrose (Dextrose 50%) 25 ml Q30M PRN IV Hypoglycemia 01/31/19 17:00 03/02/19 16:59 Dextrose (Dextrose 50%) 50 ml Q30M PRN IV Hypoglycemia 01/31/19 17:00 03/02/19 16:59 Diltiazem HCl (Cardizem) 30 mg Q8HR GT 01/31/19 22:00 03/02/19 21:59 02/02/19 14:56 Donepezil HCl (Aricept) 5 mg DAILY GT 02/01/19 09:00 03/03/19 08:59 02/02/19 09:21 Dorzolamide/ Timolol (Cosopt) 1 drop BID BOTH EYES 01/31/19 18:00 03/02/19 17:59 02/02/19 09:23 Furosemide (Lasix) 40 mg DAILY IV 02/03/19 09:00 03/03/19 08:59 Heparin Sodium (Porcine) (Heparin 5000 units/ml) 5,000 units EVERY 12 HOURS SUBQ 01/31/19 21:00 03/02/19 20:59 02/02/19 09:22 Insulin Aspart (NovoLOG) EVERY 6 HOURS SUBQ 01/31/19 18:00 03/02/19 20:59 02/02/19 12:00 Insulin Detemir (Levemir) 30 units BEDTIME SUBQ 01/31/19 21:00 03/02/19 20:59 01/31/19 21:22 Lansoprazole (Prevacid) 30 mg BID GT 02/01/19 18:00 03/03/19 17:59 02/02/19 09:21 Piperacillin Sod/ Tazobactam Sod 3.375 gm/Sodium Chloride 110 ml @ 27.5 mls/hr Q8HR IVPB 01/31/19 22:00 02/07/19 21:59 02/02/19 15:00 Pranay Nelson MD Feb 02, 2019 18:10
--- NOTE | 2019-02-02 19:25 | NUR ---
HAND-OFF: Report given to ALDO Ramirez. Plan of care endorsed.
--- NOTE | 2019-02-02 19:26 | NUR ---
NURSE NOTES: Got report from Andrew CARLSON. Pt in stable condition. Denies any pain. No s/s of distress or discomfort noted. Pt resting in bed comfortably. Bed in low and locked position, call light within reach, bedside table within reach. Continue to monitor.
[2019-02-02] MEDS ORDERED: SUPPORT118 ML GT (19:31)
[2019-02-02] MEDS ORDERED: NOVOLOG100 UNIT/5 SQ (19:31)
[2019-02-02] MEDS ORDERED: ACETAMINOP160 MG/5 M GT (19:39)
[2019-02-02] MEDS ORDERED: GERI-TUSSI100 MG/5 M PO (19:39)
[2019-02-02] MEDS ORDERED: DUONEB 0.5-3(2.53 ML HHN (19:39)
[2019-02-02] MEDS ORDERED: ACETAMINOP160 MG/5 M ORAL (19:39)
--- NOTE | 2019-02-02 19:40 | Cardiology Report ---
APPROVED REPORT EXAM: Two-dimensional and M-mode echocardiogram with Doppler and color Doppler. INDICATION Congestive Heart Failure M-Mode DIMENSIONS IVSd0.9 (0.7-1.1cm)Left Atrium (MM)2.7 (1.6-4.0cm) LVDd2.7 (3.5-5.6cm)Aortic Root3.7 (2.0-3.7cm) PWd0.8 (0.7-1.1cm)Aortic Cusp Exc.1.7 (1.5-2.0cm) IVSs0.8 cm LVDs1.8 (2.5-4.0cm) PWs1.5 cm Study quality precludes accurate assessment of regional wall motion. Left ventricular ejection fraction estimated to be grossly normal . No pericardial effusion. Aortic valve calcification with normal cusp excursion . Mildly thickened mitral valve leaflets with normal excursion., however valvular detail is poor Mild mitral annulus and aortic root calcification. Pulmonic valve not well visualized. IVC at normal size with physiologic collapse. A color flow and spectral Doppler study was performed and revealed: Mitral diastolic velocities suggest reduced left ventricular relaxation c/w mild LV diastolic dysfunction (Grade I ) Trace mitral regurgitation. Trace tricuspid regurgitation. Tricuspid systolic velocities suggests peak right ventricular systolic pressure of 11mmHg.
[2019-02-02 20:00] VITALS: BP 139/60
--- NOTE | 2019-02-02 20:42 | General Progress Note ---
Assessment/Plan Problem List: (1) diverting colostomy (2) HTN (hypertension) ICD Codes: I10 - HTN (hypertension) SNOMED: 56870869 (3) CVA (cerebral infarction) ICD Codes: I63.9 - CVA (cerebral infarction) SNOMED: 423411860 (4) CRI (chronic renal insufficiency) ICD Codes: N18.9 - CRI (chronic renal insufficiency) SNOMED: 323564733 (5) Oxygen desaturation ICD Codes: R09.02 - Hypoxemia SNOMED: 184393227 (6) Right lower lobe pneumonia ICD Codes: J18.9 - Pneumonia, unspecified organism SNOMED: 529128773 Qualifiers: Qualified Codes: J18.9 - Pneumonia, unspecified organism (7) Renal failure (ARF), acute on chronic ICD Codes: N17.9 - Acute kidney failure, unspecified; N18.9 - Chronic kidney disease, unspecified SNOMED: 394502565 (8) DM (diabetes mellitus) ICD Codes: E11.9 - DM (diabetes mellitus) SNOMED: 27701596 (9) Anemia ICD Codes: D64.9 - Anemia SNOMED: 635389231 Status: progressing Assessment/Plan: hypoxia resolved pna resp insuff colostomy dysphagia peg copd no wheezing afebrile Subjective ROS Limited/Unobtainable: Yes Allergies: Coded Allergies: No Known Allergies (Verified , 12/29/06) Objective Last 24 Hour Vital Signs Date Time Temp Pulse Resp B/P (MAP) Pulse Ox O2 Delivery O2 Flow Rate FiO2 02/02/19 19:37 74 20 100 Nasal Cannula 2.0 28 71 20 99 02/02/19 16:00 81 02/02/19 16:00 98.2 82 16 137/65 (89) 97 02/02/19 15:34 79 20 98 Room Air 21 78 20 98 02/02/19 14:56 79 135/53 02/02/19 12:37 79 20 100 Room Air 21 69 20 98 02/02/19 12:00 98.1 69 16 135/53 (80) 94 02/02/19 11:24 85 02/02/19 09:00 Room Air 02/02/19 08:44 79 20 100 Room Air 21 77 20 98 02/02/19 08:00 97.8 91 16 144/70 (94) 93 02/02/19 07:29 85 02/02/19 05:56 90 112/70 02/02/19 04:00 97.6 91 17 112/70 (84) 94 02/02/19 04:00 90 02/02/19 03:09 84 20 100 Room Air 21 81 20 99 02/02/19 00:00 97.3 93 18 138/73 (94) 95 02/02/19 00:00 91 02/01/19 23:28 92 20 97 Room Air 21 90 20 93 02/01/19 21:14 85 132/67 02/01/19 21:00 Room Air Intake and Output 02/01/19 02/02/19 19:00 07:00 Intake Total 460 ml 420 ml Balance 460 ml 420 ml Free Water 100 ml Tube Feeding 460 ml 320 ml # Voids 2 Laboratory Tests 02/02/19 06:06: White Blood Count 16.3#H, Red Blood Count 3.36L, Hemoglobin 9.2L, Hematocrit 28.1L, Mean Corpuscular Volume 84, Mean Corpuscular Hemoglobin 27.3, Mean Corpuscular Hemoglobin Concent 32.7, Red Cell Distribution Width 16.2H, Platelet Count 282, Mean Platelet Volume 6.0L, Neutrophils (%) (Auto) , Lymphocytes (%) (Auto) , Monocytes (%) (Auto) , Eosinophils (%) (Auto) , Basophils (%) (Auto) , Differential Total Cells Counted 100, Neutrophils % ( Manual) 81H, Lymphocytes % (Manual) 13L, Monocytes % (Manual) 6, Eosinophils % ( Manual) 0, Basophils % (Manual) 0, Band Neutrophils 0, Platelet Estimate Adequate, Platelet Morphology Normal, Hypochromasia 2+, Anisocytosis 1+, Spherocytes 1+, Sodium Level 145, Potassium Level 3.6, Chloride Level 110H, Carbon Dioxide Level 24, Anion Gap 11, Blood Urea Nitrogen 51H, Creatinine 2.0H , Estimat Glomerular Filtration Rate , Glucose Level 183H, Hemoglobin A1c 6.7H, Uric Acid 5.1, Calcium Level 8.9, Phosphorus Level 3.5, Magnesium Level 2.3, Total Bilirubin 0.2, Gamma Glutamyl Transpeptidase 27, Aspartate Amino Transf ( AST/SGOT) 17, Alanine Aminotransferase (ALT/SGPT) 37, Alkaline Phosphatase 150H , Troponin I 0.015, C-Reactive Protein, Quantitative 8.6H, Pro-B-Type Natriuretic Peptide 98665M, Total Protein 7.9, Albumin 2.2L, Globulin 5.7, Albumin/Globulin Ratio 0.4L, Random Vancomycin Level 20.2 Height (Feet): 6 Height (Inches): 1.00 Weight (Pounds): 189 General Appearance: confused Cardiovascular: regular rhythm Respiratory/Chest: lungs clear Abdomen: soft Rene Sin MD Feb 02, 2019 20:42
[2019-02-02] MEDS: Levemir Flexpen SUBQ SCH (21:57)
[2019-02-03] VITALS (7 sets, daily range): BP systolic 118–159; BP diastolic 67–85
[2019-02-03] MEDS: Albuterol/Ipratropium 3ml neb HHN SCH ×6 (03:03→23:35)
[2019-02-03] MEDS: Piperacillin/Tazobactam 3.375 GM in NS 110 ML IVPB SCH ×3 (05:56→22:34)
[2019-02-03] MEDS: NovoLOG Insulin Flexpen SUBQ SCH ×4 (05:57→17:15)
[2019-02-03] MEDS: dilTIAZem HCl 30mg tab GT SCH ×3 (05:57→22:32)
--- NOTE | 2019-02-03 07:00 | NUR ---
HAND-OFF: Report given to Radha CARLSON.
--- NOTE | 2019-02-03 07:25 | NUR ---
NURSE NOTES: Received patient from Tawanda Nolan. Patient is awake lying comfortably in bed. Nods and shakes head to questions. Denies pain or discomfort at this times.will restart tube feeding as ordered at 0800. Fall and Aspiration precautions in place. Will follow.
[2019-02-03 08:48] LABS: BASOPHILS % (AUTO) 0.5 % (0.0-2.0); EOSINOPHILS % (AUTO) 1.7 % (0.0-3.0); HEMATOCRIT 31.1 % (42.0-52.0); HEMOGLOBIN 9.7 G/DL (14.2-18.0); LYMPHOCYTES % (AUTO) 16.5 % (20.0-45.0); MEAN CORPUSCULAR VOLUME 88 FL (80-99); MONOCYTES % (AUTO) 7.2 % (1.0-10.0); NEUTROPHILS % (AUTO) 74.1 % (45.0-75.0); PLATELET COUNT 280 K/UL (150-450); RED BLOOD COUNT 3.55 M/UL (4.70-6.10); RED CELL DISTRIBUTION WIDTH 18.5 % (11.6-14.8)
--- NOTE | 2019-02-03 08:55 | Hematology/Onc Progress Note ---
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 --> Hgb goal >7. Transfuse prn. --> Medications have been reviewed --> gi recs appreciated prn --> trend hgb 9.2-->9.7 # R lateral nodule and possible chronic effusion. NSBGP, no obstruction. likely pna --> as er pulm eval --> vanco discontinued per id --> on zosyn # Elevated BUN and creatinine. --> per nephro recs # Noncommunicative # Dysphagia s/p peg --> Colostomy bag # Dvt heparin sq The timing of this note does not necessarily reflect the time of the patient was seen. Subjective Constitutional: Denies: no symptoms, chills, fever, malaise, weakness, other HEENT: Denies: no symptoms, eye pain, blurred vision, tearing, double vision, ear pain, ear discharge, nose pain, nose congestion, throat pain, throat swelling, mouth pain, mouth swelling, other Cardiovascular: Denies: no symptoms, chest pain, edema, irregular heart rate, lightheadedness, palpitations, syncope, other Respiratory: Denies: no symptoms, cough, shortness of breath, SOB with excertion, SOB at rest, sputum, wheezing, other Gastrointestinal/Abdominal: Denies: no symptoms, abdomen distended, abdominal pain, black stools, tarry stools, blood in stool, constipated, diarrhea, difficulty swallowing, nausea, poor appetite, poor fluid intake, rectal bleeding , vomiting, other Genitourinary: Denies: no symptoms, burning, discharge, frequency, flank pain, hematuria, incontinence, pain, urgency, other Neurologic/Psychiatric: Denies: no symptoms, anxiety, depressed, emotional problems, headache, numbness, paresthesia, pre-existing deficit, seizure, tingling, tremors, weakness, other Allergies: Coded Allergies: No Known Allergies (Verified , 12/29/06) Subjective 02/02: awake and alert, on tele, no acute events, vanco discontinued per ID 02/03: cardiezm and lasix per Antony, no bleeding, labs noted Objective Objective Current Medications Medications (Trade) Dose Ordered Sig/Jared Route PRN Reason Start Time Stop Time Status Last Admin Dose Admin Albuterol/ Ipratropium (Albuterol/ Ipratropium) 3 ml Q4HRT HHN 01/31/19 19:00 02/05/19 18:59 02/03/19 07:32 Dextrose (Dextrose 50%) 25 ml Q30M PRN IV Hypoglycemia 01/31/19 17:00 03/02/19 16:59 Dextrose (Dextrose 50%) 50 ml Q30M PRN IV Hypoglycemia 01/31/19 17:00 03/02/19 16:59 Diltiazem HCl (Cardizem) 30 mg Q8HR GT 01/31/19 22:00 03/02/19 21:59 02/03/19 05:57 Donepezil HCl (Aricept) 5 mg DAILY GT 02/01/19 09:00 03/03/19 08:59 02/02/19 09:21 Dorzolamide/ Timolol (Cosopt) 1 drop BID BOTH EYES 01/31/19 18:00 03/02/19 17:59 02/02/19 18:27 Furosemide (Lasix) 40 mg DAILY IV 02/03/19 09:00 03/03/19 08:59 Heparin Sodium (Porcine) (Heparin 5000 units/ml) 5,000 units EVERY 12 HOURS SUBQ 01/31/19 21:00 03/02/19 20:59 02/02/19 21:57 Insulin Aspart (NovoLOG) EVERY 6 HOURS SUBQ 01/31/19 18:00 03/02/19 20:59 02/03/19 00:00 Insulin Detemir (Levemir) 30 units BEDTIME SUBQ 01/31/19 21:00 03/02/19 20:59 02/02/19 21:57 Lansoprazole (Prevacid) 30 mg BID GT 02/01/19 18:00 03/03/19 17:59 02/02/19 18:27 Piperacillin Sod/ Tazobactam Sod 3.375 gm/Sodium Chloride 110 ml @ 27.5 mls/hr Q8HR IVPB 01/31/19 22:00 02/07/19 21:59 02/03/19 05:56 Last 24 Hour Vital Signs Date Time Temp Pulse Resp B/P (MAP) Pulse Ox O2 Delivery O2 Flow Rate FiO2 02/03/19 07:42 87 18 99 Nasal Cannula 2.0 28 85 18 96 02/03/19 05:57 78 147/78 02/03/19 04:00 97.3 78 18 147/78 (101) 95 02/03/19 04:00 74 02/03/19 03:03 79 20 99 Nasal Cannula 2.0 28 77 20 97 02/03/19 00:00 82 02/03/19 00:00 97.8 81 18 150/83 (105) 100 02/02/19 23:43 76 20 100 Nasal Cannula 2.0 28 74 20 99 02/02/19 21:56 85 139/60 02/02/19 21:00 Room Air 02/02/19 20:00 97.6 85 18 139/60 (86) 96 02/02/19 20:00 74 02/02/19 19:37 74 20 100 Nasal Cannula 2.0 28 71 20 99 02/02/19 16:00 81 02/02/19 16:00 98.2 82 16 137/65 (89) 97 02/02/19 15:34 79 20 98 Room Air 21 78 20 98 02/02/19 14:56 79 135/53 02/02/19 12:37 79 20 100 Room Air 21 69 20 98 02/02/19 12:00 98.1 69 16 135/53 (80) 94 02/02/19 11:24 85 02/02/19 09:00 Room Air 02/02/19 08:44 79 20 100 Room Air 21 77 20 98 02/02/19 08:00 97.8 91 16 144/70 (94) 93 02/02/19 07:29 85 02/02/19 05:56 90 112/70 02/02/19 04:00 97.6 91 17 112/70 (84) 94 02/02/19 04:00 90 02/02/19 03:09 84 20 100 Room Air 21 81 20 99 02/02/19 00:00 97.3 93 18 138/73 (94) 95 02/02/19 00:00 91 02/01/19 23:28 92 20 97 Room Air 21 90 20 93 02/01/19 21:14 85 132/67 02/01/19 21:00 Room Air 02/01/19 20:00 97.1 90 17 136/67 (90) 94 02/01/19 20:00 91 02/01/19 19:50 64 20 100 Room Air 21 60 20 99 02/01/19 16:00 97.0 104 20 105/61 (76) 96 02/01/19 15:26 92 20 100 Room Air 21 91 20 98 02/01/19 15:25 90 02/01/19 14:13 95 142/62 02/01/19 12:00 97.3 96 18 123/66 (85) 97 02/01/19 11:41 92 02/01/19 11:40 75 20 100 Room Air 21 74 20 98 02/01/19 09:00 Room Air Intake and Output 02/02/19 02/03/19 19:00 07:00 Intake Total 240 ml Balance 240 ml Tube Feeding 240 ml # Voids 3 1 # Bowel Movements 1 Labs Test 01/31/19 11:00 01/31/19 13:40 02/01/19 05:58 02/02/19 06:06 White Blood Count 9.3 K/UL (4.8-10.8) 8.5 K/UL (4.8-10.8) 16.3 K/UL (4.8-10.8) Red Blood Count 3.35 M/UL (4.70-6.10) 3.64 M/UL (4.70-6.10) 3.36 M/UL (4.70-6.10) Hemoglobin 8.9 G/DL (14.2-18.0) 9.8 G/DL (14.2-18.0) 9.2 G/DL (14.2-18.0) Hematocrit 29.4 % (42.0-52.0) 31.8 % (42.0-52.0) 28.1 % (42.0-52.0) Mean Corpuscular Volume 88 FL (80-99) 87 FL (80-99) 84 FL (80-99) Mean Corpuscular Hemoglobin 26.6 PG (27.0-31.0) 27.0 PG (27.0-31.0) 27.3 PG (27.0-31.0) Mean Corpuscular Hemoglobin Concent 30.4 G/DL (32.0-36.0) 30.9 G/DL (32.0-36.0) 32.7 G/DL (32.0-36.0) Red Cell Distribution Width 18.2 % (11.6-14.8) 18.6 % (11.6-14.8) 16.2 % (11.6-14.8) Platelet Count 266 K/UL (150-450) 295 K/UL (150-450) 282 K/UL (150-450) Mean Platelet Volume 6.2 FL (6.5-10.1) 6.3 FL (6.5-10.1) 6.0 FL (6.5-10.1) Neutrophils (%) (Auto) 66.6 % (45.0-75.0) % (45.0-75.0) % (45.0-75.0) Lymphocytes (%) (Auto) 13.9 % (20.0-45.0) % (20.0-45.0) % (20.0-45.0) Monocytes (%) (Auto) 9.0 % (1.0-10.0) % (1.0-10.0) % (1.0-10.0) Eosinophils (%) (Auto) 9.6 % (0.0-3.0) % (0.0-3.0) % (0.0-3.0) Basophils (%) (Auto) 0.8 % (0.0-2.0) % (0.0-2.0) % (0.0-2.0) Prothrombin Time 10.4 SEC (9.30-11.50) Prothromb Time International Ratio 1.0 (0.9-1.1) Activated Partial Thromboplast Time 28 SEC (23-33) Sodium Level 141 MMOL/L (136-145) 142 MMOL/L (136-145) 145 MMOL/L (136-145) Potassium Level 4.8 MMOL/L (3.5-5.1) 5.3 MMOL/L (3.5-5.1) 3.6 MMOL/L (3.5-5.1) Chloride Level 107 MMOL/L (98-107) 109 MMOL/L (98-107) 110 MMOL/L (98-107) Carbon Dioxide Level 26 MMOL/L (21-32) 23 MMOL/L (21-32) 24 MMOL/L (21-32) Anion Gap 8 mmol/L (5-15) 10 mmol/L (5-15) 11 mmol/L (5-15) Blood Urea Nitrogen 37 mg/dL (7-18) 42 mg/dL (7-18) 51 mg/dL (7-18) Creatinine 2.0 MG/DL (0.55-1.30) 2.0 MG/DL (0.55-1.30) 2.0 MG/DL (0.55-1.30) Estimat Glomerular Filtration Rate mL/min (>60) mL/min (>60) mL/min (>60) Glucose Level 97 MG/DL (74-106) 174 MG/DL (74-106) 183 MG/DL (74-106) Lactic Acid Level 0.80 mmol/L (0.4-2.0) Calcium Level 9.5 MG/DL (8.5-10.1) 9.2 MG/DL (8.5-10.1) 8.9 MG/DL (8.5-10.1) Total Bilirubin 0.2 MG/DL (0.2-1.0) 0.2 MG/DL (0.2-1.0) 0.2 MG/DL (0.2-1.0) Aspartate Amino Transf (AST/SGOT) 30 U/L (15-37) 19 U/L (15-37) 17 U/L (15-37) Alanine Aminotransferase (ALT/SGPT) 43 U/L (12-78) 41 U/L (12-78) 37 U/L (12-78) Alkaline Phosphatase 167 U/L (46-116) 139 U/L (46-116) 150 U/L (46-116) Total Creatine Kinase 48 U/L (26-308) Troponin I 0.000 ng/mL (0.000-0.056) 0.015 ng/mL (0.000-0.056) Pro-B-Type Natriuretic Peptide 2920 pg/mL (0-125) 4594 pg/mL (0-125) 08630 pg/mL (0-125) Total Protein 8.2 G/DL (6.4-8.2) 8.3 G/DL (6.4-8.2) 7.9 G/DL (6.4-8.2) Albumin 2.2 G/DL (3.4-5.0) 2.2 G/DL (3.4-5.0) 2.2 G/DL (3.4-5.0) Globulin 6.0 g/dL 6.1 g/dL 5.7 g/dL Albumin/Globulin Ratio 0.4 (1.0-2.7) 0.4 (1.0-2.7) 0.4 (1.0-2.7) Urine Color Yellow Urine Appearance Clear Urine pH 6.5 (4.5-8.0) Urine Specific [place] 1.010 (1.005-1.035) Urine Protein Negative (NEGATIVE) Urine Glucose (UA) Negative (NEGATIVE) Urine Ketones 1+ (NEGATIVE) Urine Blood Negative (NEGATIVE) Urine Nitrite Negative (NEGATIVE) Urine Bilirubin Negative (NEGATIVE) Urine Urobilinogen Normal MG/DL (0.0-1.0) Urine Leukocyte Esterase 1+ (NEGATIVE) Urine RBC 0 /HPF (0 - 0) Urine WBC 0-2 /HPF (0 - 0) Urine Squamous Epithelial Cells None /LPF (NONE/OCC) Urine Bacteria Occasional /HPF (NONE) Urine Mucus Few /LPF (NONE/OCC) Differential Total Cells Counted 100 100 Neutrophils % (Manual) 90 % (45-75) 81 % (45-75) Lymphocytes % (Manual) 8 % (20-45) 13 % (20-45) Monocytes % (Manual) 0 % (1-10) 6 % (1-10) Eosinophils % (Manual) 0 % (0-3) 0 % (0-3) Basophils % (Manual) 0 % (0-2) 0 % (0-2) Band Neutrophils 2 % (0-8) 0 % (0-8) Platelet Estimate Adequate Adequate Platelet Morphology Normal Normal Anisocytosis 1+ 1+ Uric Acid 6.4 MG/DL (2.6-7.2) 5.1 MG/DL (2.6-7.2) Phosphorus Level 3.4 MG/DL (2.5-4.9) 3.5 MG/DL (2.5-4.9) Magnesium Level 2.5 MG/DL (1.8-2.4) 2.3 MG/DL (1.8-2.4) Iron Level 49 ug/dL (50-175) Total Iron Binding Capacity 212 ug/dL (250-450) Percent Iron Saturation 23 % (15-50) Unsaturated Iron Binding 163 ug/dL (112-346) Ferritin 307 NG/ML (8-388) Gamma Glutamyl Transpeptidase 4 U/L (5-85) 27 U/L (5-85) C-Reactive Protein, Quantitative 17.7 mg/dL (0.00-0.90) 8.6 mg/dL (0.00-0.90) Vitamin B12 Level 1541 PG/ML (193-986) Folate 57.2 NG/ML (8.6-58.9) Thyroid Stimulating Hormone (TSH) 1.460 uiU/mL (0.358-3.740) Random Vancomycin Level 9.1 ug/mL 20.2 ug/mL Hypochromasia 2+ Spherocytes 1+ Hemoglobin A1c 6.7 % (4.3-6.0) Test 02/03/19 07:30 White Blood Count 10.0 K/UL (4.8-10.8) Red Blood Count 3.55 M/UL (4.70-6.10) Hemoglobin 9.7 G/DL (14.2-18.0) Hematocrit 31.1 % (42.0-52.0) Mean Corpuscular Volume 88 FL (80-99) Mean Corpuscular Hemoglobin 27.2 PG (27.0-31.0) Mean Corpuscular Hemoglobin Concent 31.1 G/DL (32.0-36.0) Red Cell Distribution Width 18.5 % (11.6-14.8) Platelet Count 280 K/UL (150-450) Mean Platelet Volume 5.9 FL (6.5-10.1) Neutrophils (%) (Auto) 74.1 % (45.0-75.0) Lymphocytes (%) (Auto) 16.5 % (20.0-45.0) Monocytes (%) (Auto) 7.2 % (1.0-10.0) Eosinophils (%) (Auto) 1.7 % (0.0-3.0) Basophils (%) (Auto) 0.5 % (0.0-2.0) Height (Feet): 6 Height (Inches): 1.00 Weight (Pounds): 189 Objective PE Vital Signs reviewed Gen: no apparent distress, alert, thin, Chronically Ill Neck: supple Respiratory: rhonchi CV: regular rate, rhythm, no edema GI: soft, no mass, non-distended, other - g tube/colostomy Gu: normal inspection Skin: normal inspection, warm/dry Sohail Reese MD Feb 03, 2019 08:55
[2019-02-03 09:01] LABS: ANION GAP 9 mmol/L (5-15); BLOOD UREA NITROGEN 55 mg/dL (7-18); CALCIUM 9.3 MG/DL (8.5-10.1); CARBON DIOXIDE 28 MMOL/L (21-32); CHLORIDE 113 MMOL/L (98-107); POTASSIUM 3.3 MMOL/L (3.5-5.1); SODIUM 150 MMOL/L (136-145)
[2019-02-03] MEDS: Donepezil 5mg Tab GT SCH (09:08)
[2019-02-03] MEDS: Heparin 5000 units/ml inj SUBQ SCH ×2 (09:11→22:37)
[2019-02-03] MEDS: Cosopt Opth Soln 10 mL Btl BOTH EYES SCH ×2 (09:12→17:14)
--- NOTE | 2019-02-03 10:44 | General Progress Note ---
Assessment/Plan Status: progressing Assessment/Plan: Assessment/Plan Assessment/Plan: Assessment - CVA/OBS/Dysphagia - s/p gastrostomy tube - s/p LLQ colostomy - CRF - Anemia - PNA / leukocytosis Recommendations - continue TF - GT care - Elevate HOB - Abx - routine colostomy care - follow labs - nephro - watch K level Subjective ROS Limited/Unobtainable: No Allergies: Coded Allergies: No Known Allergies (Verified , 12/29/06) Objective Last 24 Hour Vital Signs Date Time Temp Pulse Resp B/P (MAP) Pulse Ox O2 Delivery O2 Flow Rate FiO2 02/03/19 07:42 87 18 99 Nasal Cannula 2.0 28 85 18 96 02/03/19 05:57 78 147/78 02/03/19 04:00 97.3 78 18 147/78 (101) 95 02/03/19 04:00 74 02/03/19 03:03 79 20 99 Nasal Cannula 2.0 28 77 20 97 02/03/19 00:00 82 02/03/19 00:00 97.8 81 18 150/83 (105) 100 02/02/19 23:43 76 20 100 Nasal Cannula 2.0 28 74 20 99 02/02/19 21:56 85 139/60 02/02/19 21:00 Room Air 02/02/19 20:00 97.6 85 18 139/60 (86) 96 02/02/19 20:00 74 02/02/19 19:37 74 20 100 Nasal Cannula 2.0 28 71 20 99 02/02/19 16:00 81 02/02/19 16:00 98.2 82 16 137/65 (89) 97 02/02/19 15:34 79 20 98 Room Air 21 78 20 98 02/02/19 14:56 79 135/53 02/02/19 12:37 79 20 100 Room Air 21 69 20 98 02/02/19 12:00 98.1 69 16 135/53 (80) 94 02/02/19 11:24 85 Intake and Output 02/02/19 02/03/19 18:59 06:59 Intake Total 200 ml 40 ml Balance 200 ml 40 ml Tube Feeding 200 ml 40 ml # Voids 2 2 # Bowel Movements 1 Laboratory Tests 02/03/19 07:30: White Blood Count 10.0, Red Blood Count 3.55L, Hemoglobin 9.7L, Hematocrit 31.1L , Mean Corpuscular Volume 88, Mean Corpuscular Hemoglobin 27.2, Mean Corpuscular Hemoglobin Concent 31.1L, Red Cell Distribution Width 18.5H, Platelet Count 280, Mean Platelet Volume 5.9L, Neutrophils (%) (Auto) 74.1, Lymphocytes (%) (Auto) 16.5L, Monocytes (%) (Auto) 7.2, Eosinophils (%) (Auto) 1.7, Basophils (%) (Auto) 0.5, Sodium Level 150H, Potassium Level 3.3L, Chloride Level 113H, Carbon Dioxide Level 28, Anion Gap 9, Blood Urea Nitrogen 55H, Creatinine 2.0H, Estimat Glomerular Filtration Rate , Glucose Level 98, Calcium Level 9.3 Height (Feet): 6 Height (Inches): 1.00 Weight (Pounds): 189 General Appearance: lethargic EENT: normal ENT inspection Neck: supple Cardiovascular: normal rate Respiratory/Chest: decreased breath sounds Abdomen: normal bowel sounds, non tender, soft Extremities: non-tender Abner Ochoa MD Feb 03, 2019 10:44
--- NOTE | 2019-02-03 11:14 | Cardiac Electrophysiology PN ---
Assessment/Plan Assessment/Plan 1. Frequent PVCs. BNP is also more than 4500. Echocardiogram Nl EF and ruled out for CT . 2. Hypertension. Continue Cardizem 30 mg every 8 hours and Lasix 3. CHF with BNP>84999. Increase Lasix to 40 iv daily 4. Pneumonia, on IV antibiotic. 5. Status post colostomy. 6. Dysphagia, status post PEG placement. 7. Dementia. 8. Diabetes. DW RN Subjective Subjective Comfortable in NAD. 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, No events. 4 beats of NSVT Objective Last 24 Hour Vital Signs Date Time Temp Pulse Resp B/P (MAP) Pulse Ox O2 Delivery O2 Flow Rate FiO2 02/03/19 08:00 97.7 84 18 135/67 (89) 98 02/03/19 07:42 87 18 99 Nasal Cannula 2.0 28 85 18 96 02/03/19 05:57 78 147/78 02/03/19 04:00 97.3 78 18 147/78 (101) 95 02/03/19 04:00 74 02/03/19 03:03 79 20 99 Nasal Cannula 2.0 28 77 20 97 02/03/19 00:00 82 02/03/19 00:00 97.8 81 18 150/83 (105) 100 02/02/19 23:43 76 20 100 Nasal Cannula 2.0 28 74 20 99 02/02/19 21:56 85 139/60 02/02/19 21:00 Room Air 02/02/19 20:00 97.6 85 18 139/60 (86) 96 02/02/19 20:00 74 02/02/19 19:37 74 20 100 Nasal Cannula 2.0 28 71 20 99 02/02/19 16:00 81 02/02/19 16:00 98.2 82 16 137/65 (89) 97 02/02/19 15:34 79 20 98 Room Air 21 78 20 98 02/02/19 14:56 79 135/53 02/02/19 12:37 79 20 100 Room Air 21 69 20 98 02/02/19 12:00 98.1 69 16 135/53 (80) 94 02/02/19 11:24 85 Intake and Output 02/02/19 02/03/19 19:00 07:00 Intake Total 240 ml Balance 240 ml Tube Feeding 240 ml # Voids 3 1 # Bowel Movements 1 Laboratory Tests Test 02/03/19 07:30 White Blood Count 10.0 K/UL (4.8-10.8) Red Blood Count 3.55 M/UL (4.70-6.10) L Hemoglobin 9.7 G/DL (14.2-18.0) L Hematocrit 31.1 % (42.0-52.0) L Mean Corpuscular Volume 88 FL (80-99) Mean Corpuscular Hemoglobin 27.2 PG (27.0-31.0) Mean Corpuscular Hemoglobin Concent 31.1 G/DL (32.0-36.0) L Red Cell Distribution Width 18.5 % (11.6-14.8) H Platelet Count 280 K/UL (150-450) Mean Platelet Volume 5.9 FL (6.5-10.1) L Neutrophils (%) (Auto) 74.1 % (45.0-75.0) Lymphocytes (%) (Auto) 16.5 % (20.0-45.0) L Monocytes (%) (Auto) 7.2 % (1.0-10.0) Eosinophils (%) (Auto) 1.7 % (0.0-3.0) Basophils (%) (Auto) 0.5 % (0.0-2.0) Sodium Level 150 MMOL/L (136-145) H Potassium Level 3.3 MMOL/L (3.5-5.1) L Chloride Level 113 MMOL/L (98-107) H Carbon Dioxide Level 28 MMOL/L (21-32) Anion Gap 9 mmol/L (5-15) Blood Urea Nitrogen 55 mg/dL (7-18) H Creatinine 2.0 MG/DL (0.55-1.30) H Estimat Glomerular Filtration Rate mL/min (>60) Glucose Level 98 MG/DL (74-106) Calcium Level 9.3 MG/DL (8.5-10.1) Microbiology Date/Time Source Procedure Growth Status 01/31/19 11:30 Nasal Nares MRSA Culture - Final NO METHICILLIN RESISTANT STAPH AUREUS... Complete 01/31/19 11:30 Rectum - Final NO CARBAPENEM-RESISTANT ENTEROBACTERI... 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 LUNGS: Clear. CARDIOVASCULAR: Shows regular S1 and S2 with no gallop. ABDOMEN: Soft, status post colostomy and G-tube. EXTREMITIES: Nonpitting edema. Panchito Hardy MD Feb 03, 2019 11:14
[2019-02-03] MEDS: Sodium Chloride for KCL Premix X 4hrs IV SCH ×3 (11:57→14:20)
--- NOTE | 2019-02-03 12:27 | Infectious Diseases Prog Note ---
Assessment/Plan Assessment/Plan IMPRESSION: Positive blood culture likely contamination Atelectasis\pneumonia. 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 RECOMMENDATION: Continue Zosyn We will follow up the cultures. Subjective ROS Limited/Unobtainable: Yes Constitutional: Denies: fever Allergies: Coded Allergies: No Known Allergies (Verified , 12/29/06) Objective Vital Signs Last 24 Hour Vital Signs Date Time Temp Pulse Resp B/P (MAP) Pulse Ox O2 Delivery O2 Flow Rate FiO2 02/03/19 12:00 97.5 88 20 118/85 (96) 98 02/03/19 09:00 Room Air 02/03/19 08:00 84 02/03/19 08:00 97.7 84 18 135/67 (89) 98 02/03/19 07:42 87 18 99 Nasal Cannula 2.0 28 85 18 96 02/03/19 05:57 78 147/78 02/03/19 04:00 97.3 78 18 147/78 (101) 95 02/03/19 04:00 74 02/03/19 03:03 79 20 99 Nasal Cannula 2.0 28 77 20 97 02/03/19 00:00 82 02/03/19 00:00 97.8 81 18 150/83 (105) 100 02/02/19 23:43 76 20 100 Nasal Cannula 2.0 28 74 20 99 02/02/19 21:56 85 139/60 02/02/19 21:00 Room Air 02/02/19 20:00 97.6 85 18 139/60 (86) 96 02/02/19 20:00 74 02/02/19 19:37 74 20 100 Nasal Cannula 2.0 28 71 20 99 02/02/19 16:00 81 02/02/19 16:00 98.2 82 16 137/65 (89) 97 02/02/19 15:34 79 20 98 Room Air 21 78 20 98 02/02/19 14:56 79 135/53 02/02/19 12:37 79 20 100 Room Air 21 69 20 98 Height (Feet): 6 Height (Inches): 1.00 Weight (Pounds): 189 General Appearance: no acute distress HEENT: mucous membranes moist Respiratory/Chest: lungs clear Cardiovascular: normal rate Abdomen: soft, non tender, other - GT feeding Extremities: no edema Neurologic/Psychiatric: aphasia, other - opens eyes Laboratory Tests Test 02/03/19 07:30 White Blood Count 10.0 K/UL (4.8-10.8) Red Blood Count 3.55 M/UL (4.70-6.10) L Hemoglobin 9.7 G/DL (14.2-18.0) L Hematocrit 31.1 % (42.0-52.0) L Mean Corpuscular Volume 88 FL (80-99) Mean Corpuscular Hemoglobin 27.2 PG (27.0-31.0) Mean Corpuscular Hemoglobin Concent 31.1 G/DL (32.0-36.0) L Red Cell Distribution Width 18.5 % (11.6-14.8) H Platelet Count 280 K/UL (150-450) Mean Platelet Volume 5.9 FL (6.5-10.1) L Neutrophils (%) (Auto) 74.1 % (45.0-75.0) Lymphocytes (%) (Auto) 16.5 % (20.0-45.0) L Monocytes (%) (Auto) 7.2 % (1.0-10.0) Eosinophils (%) (Auto) 1.7 % (0.0-3.0) Basophils (%) (Auto) 0.5 % (0.0-2.0) Sodium Level 150 MMOL/L (136-145) H Potassium Level 3.3 MMOL/L (3.5-5.1) L Chloride Level 113 MMOL/L (98-107) H Carbon Dioxide Level 28 MMOL/L (21-32) Anion Gap 9 mmol/L (5-15) Blood Urea Nitrogen 55 mg/dL (7-18) H Creatinine 2.0 MG/DL (0.55-1.30) H Estimat Glomerular Filtration Rate mL/min (>60) Glucose Level 98 MG/DL (74-106) Calcium Level 9.3 MG/DL (8.5-10.1) Current Medications Medications (Trade) Dose Ordered Sig/Jared Route PRN Reason Start Time Stop Time Status Last Admin Dose Admin Albuterol/ Ipratropium (Albuterol/ Ipratropium) 3 ml Q4HRT HHN 01/31/19 19:00 02/05/19 18:59 02/03/19 12:04 Dextrose (Dextrose 50%) 25 ml Q30M PRN IV Hypoglycemia 01/31/19 17:00 03/02/19 16:59 Dextrose (Dextrose 50%) 50 ml Q30M PRN IV Hypoglycemia 01/31/19 17:00 03/02/19 16:59 Diltiazem HCl (Cardizem) 30 mg Q8HR GT 01/31/19 22:00 03/02/19 21:59 02/03/19 05:57 Donepezil HCl (Aricept) 5 mg DAILY GT 02/01/19 09:00 03/03/19 08:59 02/03/19 09:08 Dorzolamide/ Timolol (Cosopt) 1 drop BID BOTH EYES 01/31/19 18:00 03/02/19 17:59 02/03/19 09:12 Furosemide (Lasix) 40 mg DAILY IV 02/03/19 09:00 03/03/19 08:59 02/03/19 09:08 Heparin Sodium (Porcine) (Heparin 5000 units/ml) 5,000 units EVERY 12 HOURS SUBQ 01/31/19 21:00 03/02/19 20:59 02/03/19 09:11 Insulin Aspart (NovoLOG) EVERY 6 HOURS SUBQ 01/31/19 18:00 03/02/19 20:59 02/03/19 11:52 Insulin Detemir (Levemir) 30 units BEDTIME SUBQ 01/31/19 21:00 03/02/19 20:59 02/02/19 21:57 Lansoprazole (Prevacid) 30 mg BID GT 02/01/19 18:00 03/03/19 17:59 02/03/19 09:08 Piperacillin Sod/ Tazobactam Sod 3.375 gm/Sodium Chloride 110 ml @ 27.5 mls/hr Q8HR IVPB 01/31/19 22:00 02/07/19 21:59 02/03/19 05:56 Potassium Chloride 100 ml @ 100 mls/hr Q1H IVPB 02/03/19 11:30 02/03/19 15:29 02/03/19 11:51 Sodium Chloride 400 ml @ 100 mls/hr Q4H IV 02/03/19 11:30 02/03/19 15:29 02/03/19 11:57 Cheo Bhagat MD Feb 03, 2019 12:27
--- NOTE | 2019-02-03 13:46 | Nephrology Progress Note ---
Assessment/Plan Problem List: (1) Renal failure (ARF), acute on chronic (2) Hypoalbuminemia (3) DM (diabetes mellitus) (4) Anemia Assessment - CRI (chronic renal insufficiency)- elevated K - COPD / Pneumonia - Hypoalbuminemia - S/P colostomy - PEG (percutaneous endoscopic gastrostomy) status - DM Plan DC IV Kayexelate as needed avoid Nephrotoxics adjust meds for renal failure per orders Kidney FIDELINA Subjective ROS Limited/Unobtainable: No Constitutional: Reports: malaise Objective Objective Last 24 Hour Vital Signs Date Time Temp Pulse Resp B/P (MAP) Pulse Ox O2 Delivery O2 Flow Rate FiO2 02/03/19 12:00 97.5 88 20 118/85 (96) 98 02/03/19 12:00 90 02/03/19 09:00 Room Air 02/03/19 08:00 84 02/03/19 08:00 97.7 84 18 135/67 (89) 98 02/03/19 07:42 87 18 99 Nasal Cannula 2.0 28 85 18 96 02/03/19 05:57 78 147/78 02/03/19 04:00 97.3 78 18 147/78 (101) 95 02/03/19 04:00 74 02/03/19 03:03 79 20 99 Nasal Cannula 2.0 28 77 20 97 02/03/19 00:00 82 02/03/19 00:00 97.8 81 18 150/83 (105) 100 02/02/19 23:43 76 20 100 Nasal Cannula 2.0 28 74 20 99 02/02/19 21:56 85 139/60 02/02/19 21:00 Room Air 02/02/19 20:00 97.6 85 18 139/60 (86) 96 02/02/19 20:00 74 02/02/19 19:37 74 20 100 Nasal Cannula 2.0 28 71 20 99 02/02/19 16:00 81 02/02/19 16:00 98.2 82 16 137/65 (89) 97 02/02/19 15:34 79 20 98 Room Air 21 78 20 98 02/02/19 14:56 79 135/53 Intake and Output 02/02/19 02/03/19 18:59 06:59 Intake Total 200 ml 40 ml Balance 200 ml 40 ml Tube Feeding 200 ml 40 ml # Voids 2 2 # Bowel Movements 1 Laboratory Tests 02/03/19 07:30: White Blood Count 10.0, Red Blood Count 3.55L, Hemoglobin 9.7L, Hematocrit 31.1L , Mean Corpuscular Volume 88, Mean Corpuscular Hemoglobin 27.2, Mean Corpuscular Hemoglobin Concent 31.1L, Red Cell Distribution Width 18.5H, Platelet Count 280, Mean Platelet Volume 5.9L, Neutrophils (%) (Auto) 74.1, Lymphocytes (%) (Auto) 16.5L, Monocytes (%) (Auto) 7.2, Eosinophils (%) (Auto) 1.7, Basophils (%) (Auto) 0.5, Sodium Level 150H, Potassium Level 3.3L, Chloride Level 113H, Carbon Dioxide Level 28, Anion Gap 9, Blood Urea Nitrogen 55H, Creatinine 2.0H, Estimat Glomerular Filtration Rate , Glucose Level 98, Calcium Level 9.3 Height (Feet): 6 Height (Inches): 1.00 Weight (Pounds): 189 General Appearance: no apparent distress Objective no change Gregorio Hoyos MD Feb 03, 2019 13:46
--- NOTE | 2019-02-03 18:54 | Pulmonology Progress Note ---
Assessment/Plan Assessment/Plan Pulmonary Progress Note HPI: [facility] an 83 [facility] resident with Past Medical History of Dementia, CVA, Chronic Obstructive Pulmonary Disease, Hypertension, Diabetes , Anemia, CKD, GERD, Previous Diverting Colostomy, PEG for Dysphagia. 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, moving all limbs Impression: Right lower lobe pneumonia Chronic renal failure, Cr 2, no hydronephrosis on US Chronic Obstructive Pulmonary Disease Dementia Previous CVA, Chronic Obstructive Pulmonary Disease Hypertension Diabetes Anemia GERD Previous Diverting Colostomy PEG for Dysphagia Plan: IV Antibiotics O2 PRN Aspiration Precautions HHN CPT [employer] Medications PPX ISS G tube feeds Monitor Labs Laboratory Tests Noted Test 01/31/19 11:00 01/31/19 13:40 White Blood Count 9.3 K/UL (4.8-10.8) Red Blood Count 3.35 M/UL (4.70-6.10) L Hemoglobin 8.9 G/DL (14.2-18.0) L Hematocrit 29.4 % (42.0-52.0) L Mean Corpuscular Volume 88 FL (80-99) Mean Corpuscular Hemoglobin 26.6 PG (27.0-31.0) L Mean Corpuscular Hemoglobin Concent 30.4 G/DL (32.0-36.0) L Red Cell Distribution Width 18.2 % (11.6-14.8) H Platelet Count 266 K/UL (150-450) Mean Platelet Volume 6.2 FL (6.5-10.1) L Neutrophils (%) (Auto) 66.6 % (45.0-75.0) Lymphocytes (%) (Auto) 13.9 % (20.0-45.0) L Monocytes (%) (Auto) 9.0 % (1.0-10.0) Eosinophils (%) (Auto) 9.6 % (0.0-3.0) H Basophils (%) (Auto) 0.8 % (0.0-2.0) Prothrombin Time 10.4 SEC (9.30-11.50) Prothrombin Time INR 1.0 (0.9-1.1) PTT 28 SEC (23-33) Sodium Level 141 MMOL/L (136-145) Potassium Level 4.8 MMOL/L (3.5-5.1) Chloride Level 107 MMOL/L (98-107) Carbon Dioxide Level 26 MMOL/L (21-32) Anion Gap 8 mmol/L (5-15) Blood Urea Nitrogen 37 mg/dL (7-18) H Creatinine 2.0 MG/DL (0.55-1.30) H Estimate Glomerular Filtration Rate mL/min (>60) Glucose Level 97 MG/DL (74-106) Lactic Acid Level 0.80 mmol/L (0.4-2.0) Calcium Level 9.5 MG/DL (8.5-10.1) Total Bilirubin 0.2 MG/DL (0.2-1.0) Aspartate Amino Transferase (AST) 30 U/L (15-37) Alanine Aminotransferase (ALT) 43 U/L (12-78) Alkaline Phosphatase 167 U/L (46-116) H Total Creatine Kinase 48 U/L (26-308) Troponin I 0.000 ng/mL (0.000-0.056) Pro-B-Type Natriuretic Peptide 2920 pg/mL (0-125) H Total Protein 8.2 G/DL (6.4-8.2) Albumin 2.2 G/DL (3.4-5.0) L Globulin 6.0 g/dL Albumin/Globulin Ratio 0.4 (1.0-2.7) L Urine Color Yellow Urine Appearance Clear Urine pH 6.5 (4.5-8.0) Urine Specific [place] 1.010 (1.005-1.035) Urine Protein Negative (NEGATIVE) Urine Glucose (UA) Negative (NEGATIVE) Urine Ketones 1+ (NEGATIVE) H Urine Blood Negative (NEGATIVE) Urine Nitrite Negative (NEGATIVE) Urine Bilirubin Negative (NEGATIVE) Urine Urobilinogen Normal MG/DL (0.0-1.0) Urine Leukocyte Esterase 1+ (NEGATIVE) H Urine RBC Pending Urine WBC Pending Urine Squamous Epithelial Cells Pending Urine Bacteria Pending EKG: Rate: normal Rhythm: NSR ST Segments: no acute changes - Right bundle branch block with left anterior fascicular block CXR: Right basal atelectasis/infiltrate Subjective ROS Limited/Unobtainable: No Allergies: Coded Allergies: No Known Allergies (Verified , 12/29/06) Objective Last 24 Hour Vital Signs Date Time Temp Pulse Resp B/P (MAP) Pulse Ox O2 Delivery O2 Flow Rate FiO2 02/03/19 16:00 90 02/03/19 16:00 97.5 54 20 159/70 (99) 93 02/03/19 15:53 90 20 97 Nasal Cannula 2.0 28 85 18 97 02/03/19 14:20 90 118/85 02/03/19 12:00 97.5 88 20 118/85 (96) 98 02/03/19 12:00 90 02/03/19 09:00 Room Air 02/03/19 08:00 84 02/03/19 08:00 97.7 84 18 135/67 (89) 98 02/03/19 07:42 87 18 99 Nasal Cannula 2.0 28 85 18 96 02/03/19 05:57 78 147/78 02/03/19 04:00 97.3 78 18 147/78 (101) 95 02/03/19 04:00 74 02/03/19 03:03 79 20 99 Nasal Cannula 2.0 28 77 20 97 02/03/19 00:00 82 02/03/19 00:00 97.8 81 18 150/83 (105) 100 02/02/19 23:43 76 20 100 Nasal Cannula 2.0 28 74 20 99 02/02/19 21:56 85 139/60 02/02/19 21:00 Room Air 02/02/19 20:00 97.6 85 18 139/60 (86) 96 02/02/19 20:00 74 02/02/19 19:37 74 20 100 Nasal Cannula 2.0 28 71 20 99 Intake and Output 02/02/19 02/03/19 19:00 07:00 Intake Total 240 ml Balance 240 ml Tube Feeding 240 ml # Voids 3 1 # Bowel Movements 1 Laboratory Tests 02/03/19 07:30: White Blood Count 10.0, Red Blood Count 3.55L, Hemoglobin 9.7L, Hematocrit 31.1L , Mean Corpuscular Volume 88, Mean Corpuscular Hemoglobin 27.2, Mean Corpuscular Hemoglobin Concent 31.1L, Red Cell Distribution Width 18.5H, Platelet Count 280, Mean Platelet Volume 5.9L, Neutrophils (%) (Auto) 74.1, Lymphocytes (%) (Auto) 16.5L, Monocytes (%) (Auto) 7.2, Eosinophils (%) (Auto) 1.7, Basophils (%) (Auto) 0.5, Sodium Level 150H, Potassium Level 3.3L, Chloride Level 113H, Carbon Dioxide Level 28, Anion Gap 9, Blood Urea Nitrogen 55H, Creatinine 2.0H, Estimat Glomerular Filtration Rate , Glucose Level 98, Calcium Level 9.3 Current Medications Medications (Trade) Dose Ordered Sig/Jared Route PRN Reason Start Time Stop Time Status Last Admin Dose Admin Albuterol/ Ipratropium (Albuterol/ Ipratropium) 3 ml Q4HRT HHN 01/31/19 19:00 02/05/19 18:59 02/03/19 12:04 Dextrose (Dextrose 50%) 25 ml Q30M PRN IV Hypoglycemia 01/31/19 17:00 03/02/19 16:59 Dextrose (Dextrose 50%) 50 ml Q30M PRN IV Hypoglycemia 01/31/19 17:00 03/02/19 16:59 Diltiazem HCl (Cardizem) 30 mg Q8HR GT 01/31/19 22:00 03/02/19 21:59 02/03/19 14:20 Donepezil HCl (Aricept) 5 mg DAILY GT 02/01/19 09:00 03/03/19 08:59 02/03/19 09:08 Dorzolamide/ Timolol (Cosopt) 1 drop BID BOTH EYES 01/31/19 18:00 03/02/19 17:59 02/03/19 17:14 Heparin Sodium (Porcine) (Heparin 5000 units/ml) 5,000 units EVERY 12 HOURS SUBQ 01/31/19 21:00 03/02/19 20:59 02/03/19 09:11 Insulin Aspart (NovoLOG) EVERY 6 HOURS SUBQ 01/31/19 18:00 03/02/19 20:59 02/03/19 17:15 Insulin Detemir (Levemir) 30 units BEDTIME SUBQ 01/31/19 21:00 03/02/19 20:59 02/02/19 21:57 Lansoprazole (Prevacid) 30 mg BID GT 02/01/19 18:00 03/03/19 17:59 02/03/19 17:14 Piperacillin Sod/ Tazobactam Sod 3.375 gm/Sodium Chloride 110 ml @ 27.5 mls/hr Q8HR IVPB 01/31/19 22:00 02/07/19 21:59 02/03/19 14:44 Pranay Nelson MD Feb 03, 2019 18:54
--- NOTE | 2019-02-03 19:50 | NUR ---
HAND-OFF: Report given to Tawanda Johnson.PLan of care endorsed.
--- NOTE | 2019-02-03 19:55 | NUR ---
NURSE NOTES: Pt in stable condition in NAD, O2 2 L NC, Gtube feed on until 0400, no residual at this time. Alert x 1, answers to name. nonverbal Denies any pain. No s/s of distress or discomfort noted. Pt resting in bed comfortably. Bed in low and locked position, call light within reach, bedside table within reach. Continue to monitor.
--- NOTE | 2019-02-03 20:43 | General Progress Note ---
Assessment/Plan Problem List: (1) diverting colostomy (2) HTN (hypertension) ICD Codes: I10 - HTN (hypertension) SNOMED: 08399598 (3) CVA (cerebral infarction) ICD Codes: I63.9 - CVA (cerebral infarction) SNOMED: 010715844 (4) CRI (chronic renal insufficiency) ICD Codes: N18.9 - CRI (chronic renal insufficiency) SNOMED: 235484137 (5) Oxygen desaturation ICD Codes: R09.02 - Hypoxemia SNOMED: 157264894 (6) Right lower lobe pneumonia ICD Codes: J18.9 - Pneumonia, unspecified organism SNOMED: 002573241 Qualifiers: Qualified Codes: J18.9 - Pneumonia, unspecified organism (7) Renal failure (ARF), acute on chronic ICD Codes: N17.9 - Acute kidney failure, unspecified; N18.9 - Chronic kidney disease, unspecified SNOMED: 289120003 (8) DM (diabetes mellitus) ICD Codes: E11.9 - DM (diabetes mellitus) SNOMED: 60580044 (9) Anemia ICD Codes: D64.9 - Anemia SNOMED: 237718782 Status: progressing Assessment/Plan: pna peg npo abx per id afebrile niddm anemia reviewed chart Subjective ROS Limited/Unobtainable: Yes Allergies: Coded Allergies: No Known Allergies (Verified , 12/29/06) Objective Last 24 Hour Vital Signs Date Time Temp Pulse Resp B/P (MAP) Pulse Ox O2 Delivery O2 Flow Rate FiO2 02/03/19 19:30 71 20 100 Nasal Cannula 2.0 28 73 18 96 02/03/19 16:00 90 02/03/19 16:00 97.5 54 20 159/70 (99) 93 02/03/19 15:53 90 20 97 Nasal Cannula 2.0 28 85 18 97 02/03/19 14:20 90 118/85 02/03/19 12:00 97.5 88 20 118/85 (96) 98 02/03/19 12:00 90 02/03/19 09:00 Room Air 02/03/19 08:00 84 02/03/19 08:00 97.7 84 18 135/67 (89) 98 02/03/19 07:42 87 18 99 Nasal Cannula 2.0 28 85 18 96 02/03/19 05:57 78 147/78 12/12/19 04:00 97.3 78 18 147/78 (101) 95 02/03/19 04:00 74 02/03/19 03:03 79 20 99 Nasal Cannula 2.0 28 77 20 97 02/03/19 00:00 82 02/03/19 00:00 97.8 81 18 150/83 (105) 100 02/02/19 23:43 76 20 100 Nasal Cannula 2.0 28 74 20 99 02/02/19 21:56 85 139/60 02/02/19 21:00 Room Air Intake and Output 02/02/19 02/03/19 19:00 07:00 Intake Total 240 ml Balance 240 ml Tube Feeding 240 ml # Voids 3 1 # Bowel Movements 1 Laboratory Tests 02/03/19 07:30: White Blood Count 10.0, Red Blood Count 3.55L, Hemoglobin 9.7L, Hematocrit 31.1L , Mean Corpuscular Volume 88, Mean Corpuscular Hemoglobin 27.2, Mean Corpuscular Hemoglobin Concent 31.1L, Red Cell Distribution Width 18.5H, Platelet Count 280, Mean Platelet Volume 5.9L, Neutrophils (%) (Auto) 74.1, Lymphocytes (%) (Auto) 16.5L, Monocytes (%) (Auto) 7.2, Eosinophils (%) (Auto) 1.7, Basophils (%) (Auto) 0.5, Sodium Level 150H, Potassium Level 3.3L, Chloride Level 113H, Carbon Dioxide Level 28, Anion Gap 9, Blood Urea Nitrogen 55H, Creatinine 2.0H, Estimat Glomerular Filtration Rate , Glucose Level 98, Calcium Level 9.3 Height (Feet): 6 Height (Inches): 1.00 Weight (Pounds): 189 Cardiovascular: normal rate Respiratory/Chest: lungs clear Abdomen: soft Rene Sin MD Feb 03, 2019 20:43
[2019-02-03] MEDS: Levemir Flexpen SUBQ SCH (22:45)
[2019-02-04] VITALS: BP 154/64
[2019-02-04] MEDS: Albuterol/Ipratropium 3ml neb HHN SCH ×4 (03:55→14:53)
[2019-02-04 04:00] VITALS: BP 137/77
--- NOTE | 2019-02-04 04:00 | NUR ---
NURSE NOTES: Tube feed turned off at 0400.
--- NOTE | 2019-02-04 06:13 | Hematology/Onc Progress Note ---
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 --> Hgb goal >7. Transfuse prn. --> Medications have been reviewed --> gi recs appreciated prn --> trend hgb 9.2-->9.7 # R lateral nodule and possible chronic effusion. NSBGP, no obstruction. likely pna --> as er pulm eval --> vanco discontinued per id --> on zosyn # Elevated BUN and creatinine. --> per nephro recs # Noncommunicative # Dysphagia s/p peg --> Colostomy bag # Dvt heparin sq The timing of this note does not necessarily reflect the time of the patient was seen. Subjective Constitutional: Denies: no symptoms, chills, fever, malaise, weakness, other HEENT: Denies: no symptoms, eye pain, blurred vision, tearing, double vision, ear pain, ear discharge, nose pain, nose congestion, throat pain, throat swelling, mouth pain, mouth swelling, other Cardiovascular: Denies: no symptoms, chest pain, edema, irregular heart rate, lightheadedness, palpitations, syncope, other Gastrointestinal/Abdominal: Denies: no symptoms, abdomen distended, abdominal pain, black stools, tarry stools, blood in stool, constipated, diarrhea, difficulty swallowing, nausea, poor appetite, poor fluid intake, rectal bleeding , vomiting, other Genitourinary: Denies: no symptoms, burning, discharge, frequency, flank pain, hematuria, incontinence, pain, urgency, other Allergies: Coded Allergies: No Known Allergies (Verified , 12/29/06) Subjective 02/02: awake and alert, on tele, no acute events, vanco discontinued per ID 02/03: cardiezm and lasix per [place], no bleeding, labs noted 02/04: no events, comfortable, not in pain, labs pending, mercy rn Objective Objective Current Medications Medications (Trade) Dose Ordered Sig/Jared Route PRN Reason Start Time Stop Time Status Last Admin Dose Admin Albuterol/ Ipratropium (Albuterol/ Ipratropium) 3 ml Q4HRT HHN 01/31/19 19:00 02/05/19 18:59 02/04/19 03:55 Dextrose (Dextrose 50%) 25 ml Q30M PRN IV Hypoglycemia 01/31/19 17:00 03/02/19 16:59 Dextrose (Dextrose 50%) 50 ml Q30M PRN IV Hypoglycemia 01/31/19 17:00 03/02/19 16:59 Diltiazem HCl (Cardizem) 30 mg Q8HR GT 01/31/19 22:00 03/02/19 21:59 02/03/19 22:32 Donepezil HCl (Aricept) 5 mg DAILY GT 02/01/19 09:00 03/03/19 08:59 02/03/19 09:08 Dorzolamide/ Timolol (Cosopt) 1 drop BID BOTH EYES 01/31/19 18:00 03/02/19 17:59 02/03/19 17:14 Heparin Sodium (Porcine) (Heparin 5000 units/ml) 5,000 units EVERY 12 HOURS SUBQ 01/31/19 21:00 03/02/19 20:59 02/03/19 22:37 Insulin Aspart (NovoLOG) EVERY 6 HOURS SUBQ 01/31/19 18:00 03/02/19 20:59 02/03/19 17:15 Insulin Detemir (Levemir) 30 units BEDTIME SUBQ 01/31/19 21:00 03/02/19 20:59 02/03/19 22:45 Lansoprazole (Prevacid) 30 mg BID GT 02/01/19 18:00 03/03/19 17:59 02/03/19 17:14 Piperacillin Sod/ Tazobactam Sod 3.375 gm/Sodium Chloride 110 ml @ 27.5 mls/hr Q8HR IVPB 01/31/19 22:00 02/07/19 21:59 02/03/19 22:34 Last 24 Hour Vital Signs Date Time Temp Pulse Resp B/P (MAP) Pulse Ox O2 Delivery O2 Flow Rate FiO2 02/04/19 04:00 97.0 88 20 137/77 (97) 98 02/04/19 04:00 87 02/04/19 03:55 84 20 100 Nasal Cannula 2.0 28 82 18 98 02/04/19 00:00 97.2 81 20 154/64 (94) 98 02/04/19 00:00 97.2 81 20 154/64 (94) 98 02/04/19 00:00 80 02/04/19 00:00 80 02/03/19 23:35 78 20 100 Nasal Cannula 2.0 28 81 18 99 02/03/19 22:32 75 146/82 02/03/19 21:00 Nasal Cannula 2.0 02/03/19 20:00 96.8 75 20 146/82 (103) 97 02/03/19 20:00 80 02/03/19 19:30 71 20 100 Nasal Cannula 2.0 28 73 18 96 02/03/19 16:00 90 02/03/19 16:00 97.5 54 20 159/70 (99) 93 02/03/19 15:53 90 20 97 Nasal Cannula 2.0 28 85 18 97 02/03/19 14:20 90 118/85 02/03/19 12:00 97.5 88 20 118/85 (96) 98 02/03/19 12:00 90 02/03/19 09:00 Room Air 02/03/19 08:00 84 02/03/19 08:00 97.7 84 18 135/67 (89) 98 02/03/19 07:42 87 18 99 Nasal Cannula 2.0 28 85 18 96 02/03/19 05:57 78 147/78 02/03/19 04:00 97.3 78 18 147/78 (101) 95 02/03/19 04:00 74 02/03/19 03:03 79 20 99 Nasal Cannula 2.0 28 77 20 97 02/03/19 00:00 82 02/03/19 00:00 97.8 81 18 150/83 (105) 100 02/02/19 23:43 76 20 100 Nasal Cannula 2.0 28 74 20 99 02/02/19 21:56 85 139/60 02/02/19 21:00 Room Air 02/02/19 20:00 97.6 85 18 139/60 (86) 96 02/02/19 20:00 74 02/02/19 19:37 74 20 100 Nasal Cannula 2.0 28 71 20 99 02/02/19 16:00 81 02/02/19 16:00 98.2 82 16 137/65 (89) 97 02/02/19 15:34 79 20 98 Room Air 21 78 20 98 02/02/19 14:56 79 135/53 02/02/19 12:37 79 20 100 Room Air 21 69 20 98 02/02/19 12:00 98.1 69 16 135/53 (80) 94 02/02/19 11:24 85 02/02/19 09:00 Room Air 02/02/19 08:44 79 20 100 Room Air 21 77 20 98 02/02/19 08:00 97.8 91 16 144/70 (94) 93 02/02/19 07:29 85 Intake and Output 02/03/19 02/04/19 19:00 07:00 Intake Total 430.0 ml Output Total 200 ml Balance 230.0 ml IV Total 110.0 ml Tube Feeding 320 ml Output Stool Total 200 ml # Voids 2 9 # Bowel Movements 1 Labs Test 02/02/19 06:06 02/03/19 07:30 White Blood Count 16.3 K/UL (4.8-10.8) 10.0 K/UL (4.8-10.8) Red Blood Count 3.36 M/UL (4.70-6.10) 3.55 M/UL (4.70-6.10) Hemoglobin 9.2 G/DL (14.2-18.0) 9.7 G/DL (14.2-18.0) Hematocrit 28.1 % (42.0-52.0) 31.1 % (42.0-52.0) Mean Corpuscular Volume 84 FL (80-99) 88 FL (80-99) Mean Corpuscular Hemoglobin 27.3 PG (27.0-31.0) 27.2 PG (27.0-31.0) Mean Corpuscular Hemoglobin Concent 32.7 G/DL (32.0-36.0) 31.1 G/DL (32.0-36.0) Red Cell Distribution Width 16.2 % (11.6-14.8) 18.5 % (11.6-14.8) Platelet Count 282 K/UL (150-450) 280 K/UL (150-450) Mean Platelet Volume 6.0 FL (6.5-10.1) 5.9 FL (6.5-10.1) Neutrophils (%) (Auto) % (45.0-75.0) 74.1 % (45.0-75.0) Lymphocytes (%) (Auto) % (20.0-45.0) 16.5 % (20.0-45.0) Monocytes (%) (Auto) % (1.0-10.0) 7.2 % (1.0-10.0) Eosinophils (%) (Auto) % (0.0-3.0) 1.7 % (0.0-3.0) Basophils (%) (Auto) % (0.0-2.0) 0.5 % (0.0-2.0) Differential Total Cells Counted 100 Neutrophils % (Manual) 81 % (45-75) Lymphocytes % (Manual) 13 % (20-45) Monocytes % (Manual) 6 % (1-10) Eosinophils % (Manual) 0 % (0-3) Basophils % (Manual) 0 % (0-2) Band Neutrophils 0 % (0-8) Platelet Estimate Adequate Platelet Morphology Normal Hypochromasia 2+ Anisocytosis 1+ Spherocytes 1+ Sodium Level 145 MMOL/L (136-145) 150 MMOL/L (136-145) Potassium Level 3.6 MMOL/L (3.5-5.1) 3.3 MMOL/L (3.5-5.1) Chloride Level 110 MMOL/L (98-107) 113 MMOL/L (98-107) Carbon Dioxide Level 24 MMOL/L (21-32) 28 MMOL/L (21-32) Anion Gap 11 mmol/L (5-15) 9 mmol/L (5-15) Blood Urea Nitrogen 51 mg/dL (7-18) 55 mg/dL (7-18) Creatinine 2.0 MG/DL (0.55-1.30) 2.0 MG/DL (0.55-1.30) Estimat Glomerular Filtration Rate mL/min (>60) mL/min (>60) Glucose Level 183 MG/DL (74-106) 98 MG/DL (74-106) Hemoglobin A1c 6.7 % (4.3-6.0) Uric Acid 5.1 MG/DL (2.6-7.2) Calcium Level 8.9 MG/DL (8.5-10.1) 9.3 MG/DL (8.5-10.1) Phosphorus Level 3.5 MG/DL (2.5-4.9) Magnesium Level 2.3 MG/DL (1.8-2.4) Total Bilirubin 0.2 MG/DL (0.2-1.0) Gamma Glutamyl Transpeptidase 27 U/L (5-85) Aspartate Amino Transf (AST/SGOT) 17 U/L (15-37) Alanine Aminotransferase (ALT/SGPT) 37 U/L (12-78) Alkaline Phosphatase 150 U/L (46-116) Troponin I 0.015 ng/mL (0.000-0.056) C-Reactive Protein, Quantitative 8.6 mg/dL (0.00-0.90) Pro-B-Type Natriuretic Peptide 41048 pg/mL (0-125) Total Protein 7.9 G/DL (6.4-8.2) Albumin 2.2 G/DL (3.4-5.0) Globulin 5.7 g/dL Albumin/Globulin Ratio 0.4 (1.0-2.7) Random Vancomycin Level 20.2 ug/mL Height (Feet): 6 Height (Inches): 1.00 Weight (Pounds): 189 Objective PE Vital Signs reviewed Gen: no apparent distress, alert, thin, Chronically Ill Neck: supple Respiratory: rhonchi CV: regular rate, rhythm, no edema GI: soft, no mass, non-distended, other - g tube/colostomy Gu: normal inspection Skin: normal inspection, warm/dry Sohail Reese MD Feb 04, 2019 06:13
[2019-02-04] MEDS: dilTIAZem HCl 30mg tab GT SCH ×2 (06:25→14:09)
[2019-02-04] MEDS: Piperacillin/Tazobactam 3.375 GM in NS 110 ML IVPB SCH ×2 (06:26→14:09)
[2019-02-04] MEDS: NovoLOG Insulin Flexpen SUBQ SCH ×3 (06:27→11:38)
--- NOTE | 2019-02-04 07:29 | NUR ---
HAND-OFF: Report given to ALDO Cagle
[2019-02-04 07:56] LABS: BASOPHILS % (AUTO) 0.4 % (0.0-2.0); EOSINOPHILS % (AUTO) 1.9 % (0.0-3.0); HEMATOCRIT 29.1 % (42.0-52.0); HEMOGLOBIN 8.9 G/DL (14.2-18.0); LYMPHOCYTES % (AUTO) 16.7 % (20.0-45.0); MEAN CORPUSCULAR VOLUME 88 FL (80-99); PLATELET COUNT 299 K/UL (150-450); RED CELL DISTRIBUTION WIDTH 18.6 % (11.6-14.8); WHITE BLOOD COUNT 12.2 K/UL (4.8-10.8)
[2019-02-04 08:00] VITALS: BP 118/67
--- NOTE | 2019-02-04 08:01 | NUR ---
NURSE NOTES: Patient received from Lisa CARLSON. Patient stable, nonverbal. No s/sx of distress with RR even and unlabored on RA. Side rails upx2, call light within reach, bed low and locked. Feeding resumed. Will continue to monitor.
--- NOTE | 2019-02-04 08:13 | General Progress Note ---
Assessment/Plan Status: progressing Assessment/Plan: Assessment/Plan Assessment/Plan: Assessment - CVA/OBS/Dysphagia - s/p gastrostomy tube - s/p LLQ colostomy - CRF - Anemia - PNA / leukocytosis Recommendations - continue TF - GT care - Elevate HOB - Abx - routine colostomy care - follow labs - nephro Subjective ROS Limited/Unobtainable: No Allergies: Coded Allergies: No Known Allergies (Verified , 12/29/06) Objective Last 24 Hour Vital Signs Date Time Temp Pulse Resp B/P (MAP) Pulse Ox O2 Delivery O2 Flow Rate FiO2 02/04/19 07:13 73 16 100 Nasal Cannula 2.0 28 69 16 99 02/04/19 06:25 87 137/77 02/04/19 04:00 97.0 88 20 137/77 (97) 98 02/04/19 04:00 87 02/04/19 03:55 84 20 100 Nasal Cannula 2.0 28 82 18 98 02/04/19 00:00 97.2 81 20 154/64 (94) 98 02/04/19 00:00 97.2 81 20 154/64 (94) 98 02/04/19 00:00 80 02/04/19 00:00 80 02/03/19 23:35 78 20 100 Nasal Cannula 2.0 28 81 18 99 02/03/19 22:32 75 146/82 02/03/19 21:00 Nasal Cannula 2.0 02/03/19 20:00 96.8 75 20 146/82 (103) 97 02/03/19 20:00 80 02/03/19 19:30 71 20 100 Nasal Cannula 2.0 28 73 18 96 02/03/19 16:00 90 02/03/19 16:00 97.5 54 20 159/70 (99) 93 02/03/19 15:53 90 20 97 Nasal Cannula 2.0 28 85 18 97 02/03/19 14:20 90 118/85 02/03/19 12:00 97.5 88 20 118/85 (96) 98 02/03/19 12:00 90 02/03/19 09:00 Room Air Intake and Output 02/03/19 02/04/19 19:00 07:00 Intake Total 430.0 ml Output Total 200 ml Balance 230.0 ml IV Total 110.0 ml Tube Feeding 320 ml Output Stool Total 200 ml # Voids 2 9 # Bowel Movements 1 Laboratory Tests 02/04/19 06:32: White Blood Count 12.2H, Red Blood Count 3.30L, Hemoglobin 8.9L, Hematocrit 29.1L, Mean Corpuscular Volume 88, Mean Corpuscular Hemoglobin 26.9L, Mean Corpuscular Hemoglobin Concent 30.4L, Red Cell Distribution Width 18.6H, Platelet Count 299, Mean Platelet Volume 6.0L, Neutrophils (%) (Auto) 74.0, Lymphocytes (%) (Auto) 16.7L, Monocytes (%) (Auto) 7.0, Eosinophils (%) (Auto) 1.9, Basophils (%) (Auto) 0.4, Sodium Level [Pending], Potassium Level [Pending] , Chloride Level [Pending], Carbon Dioxide Level [Pending], Blood Urea Nitrogen [Pending], Creatinine [Pending], Estimat Glomerular Filtration Rate [Pending], Glucose Level [Pending], Uric Acid [Pending], Calcium Level [Pending], Phosphorus Level [Pending], Magnesium Level [Pending], Total Bilirubin [Pending] , Aspartate Amino Transf (AST/SGOT) [Pending], Alanine Aminotransferase (ALT/ SGPT) [Pending], Alkaline Phosphatase [Pending], C-Reactive Protein, Quantitative [Pending], Pro-B-Type Natriuretic Peptide [Pending], Total Protein [Pending], Albumin [Pending], Globulin [Pending] Height (Feet): 6 Height (Inches): 1.00 Weight (Pounds): 189 General Appearance: no apparent distress EENT: normal ENT inspection Neck: supple Cardiovascular: normal rate Respiratory/Chest: decreased breath sounds Abdomen: normal bowel sounds, non tender, soft Extremities: non-tender Abner Ochoa MD Feb 04, 2019 08:13
[2019-02-04] MEDS: Cosopt Opth Soln 10 mL Btl BOTH EYES SCH (09:04)
[2019-02-04] MEDS: Donepezil 5mg Tab GT SCH (09:04)
[2019-02-04] MEDS: Heparin 5000 units/ml inj SUBQ SCH (09:05)
[2019-02-04 09:21] LABS: ALANINE AMINOTRANSFERASE 42 U/L (12-78); ALBUMIN 2.3 G/DL (3.4-5.0); ALBUMIN/GLOBULIN RATIO 0.4 (1.0-2.7); ALKALINE PHOSPHATASE 133 U/L (46-116); ANION GAP 10 mmol/L (5-15); ASPARTATE AMINO TRANSFERASE 22 U/L (15-37); BILIRUBIN,TOTAL 0.2 MG/DL (0.2-1.0); BLOOD UREA NITROGEN 57 mg/dL (7-18); CARBON DIOXIDE 28 MMOL/L (21-32); CHLORIDE 114 MMOL/L (98-107); CREATININE 2.2 MG/DL (0.55-1.30); PHOSPHORUS 3.6 MG/DL (2.5-4.9); POTASSIUM 3.5 MMOL/L (3.5-5.1); SODIUM 152 MMOL/L (136-145)
--- NOTE | 2019-02-04 10:14 | NUR ---
DISCHARGE PLANNED: PATIENT HAS BEEN ACCEPTED BACK TO [facility] T: [phone] FOR NURSE TO NURSE REPORT ROOM# 107 A [facility]MED[facility] PICKUP TIME @1200
--- NOTE | 2019-02-04 10:15 | NUR ---
NURSE NOTES: Per Dr. January dc to SNF when cleared by cardio and nephro. He said to ask Dr. Luis A Bhagat for antibiotics on dc. Per Dr. January dc with home meds and the [facility] meds.
--- NOTE | 2019-02-04 11:16 | NUR ---
NURSE NOTES: Left a message with Dr. Luis A Bhagat regarding antibiotics upon DC; awaiting response.
--- NOTE | 2019-02-04 11:53 | Nephrology Progress Note ---
Assessment/Plan Problem List: (1) Renal failure (ARF), acute on chronic (2) Hypoalbuminemia (3) DM (diabetes mellitus) (4) Anemia Assessment - CRI (chronic renal insufficiency)- elevated K - COPD / Pneumonia - Hypoalbuminemia - S/P colostomy - PEG (percutaneous endoscopic gastrostomy) status - DM Plan D5W 500 cc bolus DC IV Kayexelate as needed avoid Nephrotoxics adjust meds for renal failure per orders Kidney FIDELINA agree with DC planning- Cr baseline Subjective ROS Limited/Unobtainable: No Constitutional: Reports: malaise Objective Objective Last 24 Hour Vital Signs Date Time Temp Pulse Resp B/P (MAP) Pulse Ox O2 Delivery O2 Flow Rate FiO2 02/04/19 10:39 75 16 100 Nasal Cannula 2.0 28 69 18 99 02/04/19 09:00 Nasal Cannula 2.0 02/04/19 08:00 97.3 71 20 118/67 (84) 100 02/04/19 08:00 77 02/04/19 07:13 73 16 100 Nasal Cannula 2.0 28 69 16 99 02/04/19 06:25 87 137/77 02/04/19 04:00 97.0 88 20 137/77 (97) 98 02/04/19 04:00 87 02/04/19 03:55 84 20 100 Nasal Cannula 2.0 28 82 18 98 02/04/19 00:00 97.2 81 20 154/64 (94) 98 02/04/19 00:00 97.2 81 20 154/64 (94) 98 02/04/19 00:00 80 02/04/19 00:00 80 02/03/19 23:35 78 20 100 Nasal Cannula 2.0 28 81 18 99 02/03/19 22:32 75 146/82 02/03/19 21:00 Nasal Cannula 2.0 02/03/19 20:00 96.8 75 20 146/82 (103) 97 02/03/19 20:00 80 02/03/19 19:30 71 20 100 Nasal Cannula 2.0 28 73 18 96 02/03/19 16:00 90 02/03/19 16:00 97.5 54 20 159/70 (99) 93 02/03/19 15:53 90 20 97 Nasal Cannula 2.0 28 85 18 97 02/03/19 14:20 90 118/85 02/03/19 12:00 97.5 88 20 118/85 (96) 98 02/03/19 12:00 90 Intake and Output 02/03/19 02/04/19 19:00 07:00 Intake Total 430.0 ml Output Total 200 ml Balance 230.0 ml IV Total 110.0 ml Tube Feeding 320 ml Output Stool Total 200 ml # Voids 2 9 # Bowel Movements 1 Laboratory Tests 02/04/19 06:32: White Blood Count 12.2H, Red Blood Count 3.30L, Hemoglobin 8.9L, Hematocrit 29.1L, Mean Corpuscular Volume 88, Mean Corpuscular Hemoglobin 26.9L, Mean Corpuscular Hemoglobin Concent 30.4L, Red Cell Distribution Width 18.6H, Platelet Count 299, Mean Platelet Volume 6.0L, Neutrophils (%) (Auto) 74.0, Lymphocytes (%) (Auto) 16.7L, Monocytes (%) (Auto) 7.0, Eosinophils (%) (Auto) 1.9, Basophils (%) (Auto) 0.4, Sodium Level 152H, Potassium Level 3.5, Chloride Level 114H, Carbon Dioxide Level 28, Anion Gap 10, Blood Urea Nitrogen 57H, Creatinine 2.2H, Estimat Glomerular Filtration Rate , Glucose Level 115H, Uric Acid 5.2, Calcium Level 9.0, Phosphorus Level 3.6, Magnesium Level 2.1, Total Bilirubin 0.2, Aspartate Amino Transf (AST/SGOT) 22, Alanine Aminotransferase ( ALT/SGPT) 42, Alkaline Phosphatase 133H, C-Reactive Protein, Quantitative 4.2H, Pro-B-Type Natriuretic Peptide 6573H, Total Protein 7.8, Albumin 2.3L, Globulin 5.5, Albumin/Globulin Ratio 0.4L Height (Feet): 6 Height (Inches): 1.00 Weight (Pounds): 189 General Appearance: no apparent distress Cardiovascular: normal rate Respiratory/Chest: decreased breath sounds Abdomen: soft Objective no change Gregorio Hoyos MD Feb 04, 2019 11:53
[2019-02-04 12:00] VITALS: BP 147/64
--- NOTE | 2019-02-04 12:12 | NUR ---
RD ASSESSMENT & RECOMMENDATIONS SEE CARE ACTIVITY FOR COMPLETE ASSESSMENT DAILY ESTIMATED NEEDS: Needs based on DM, renal dysfunction, wound/ 64.5kg abw 25-30 kcals/kg 5241-5422 total kcals 1.25-1.5 g protein/kg 81-97 g total protein 25-30 mL/kg 2125-2069 total fluid mLs NUTRITION DIAGNOSIS: * Swallowing difficulty R/T dysphagia, decreased cognitive fxn as evidenced by pt is GT dependent * Altered nutrition related lab values R/T renal dysfunction, diabetes, dehydration as evidenced by elev creat (2.2), A1C 6.7, elev BUN (57), elev Na (152). CURRENT TF:Nepro @40ml ENTERAL NUTRITION RECOMMENDATIONS: Nepro @ 40ml/hr x 24 hrs + Prosource x1 daily to provide 960ml, 1728kcal, 78g + 11g prot, 698ml free water * Maintain Nepro @ 40ml/hr as tolerated. * Add prosource 1 pack daily to better meet est pro needs * HOB over 30 degrees/ water flush per MD. ADDITIONAL RECOMMENDATIONS: * Maintain calibrated bed scale wt * F/up w/ WC eval-> rec to add ISAAK BID via PEG * Na elev, rec increase Tf flush * Add Prosource 1 pack daily to better meet est pro needs. . . .
--- NOTE | 2019-02-04 13:59 | Cardiac Electrophysiology PN ---
Assessment/Plan Assessment/Plan 1. Frequent PVCs. BNP was more than 4500. Echo Nl EF and ruled out for MS . 2. Hypertension. On Cardizem 30 mg every 8 hours and DC Lasix 3. CHF with BNP>35260. Improved with Lasix 4. Pneumonia, on IV antibiotic. 5. Status post colostomy. 6. Dysphagia, status post PEG placement. 7. Dementia. 8. Diabetes. 9. Hypernatremia and renal failure. Off Diuretics. FU with Dr Soha SAVAGE RN Subjective Subjective Comfortable in NAD. No events or NSVT overnight Objective Last 24 Hour Vital Signs Date Time Temp Pulse Resp B/P (MAP) Pulse Ox O2 Delivery O2 Flow Rate FiO2 02/04/19 12:00 72 02/04/19 12:00 97.9 70 20 147/64 (91) 95 02/04/19 10:39 75 16 100 Nasal Cannula 2.0 28 69 18 99 02/04/19 09:00 Nasal Cannula 2.0 02/04/19 08:00 97.3 71 20 118/67 (84) 100 02/04/19 08:00 77 02/04/19 07:13 73 16 100 Nasal Cannula 2.0 28 69 16 99 02/04/19 06:25 87 137/77 02/04/19 04:00 97.0 88 20 137/77 (97) 98 02/04/19 04:00 87 02/04/19 03:55 84 20 100 Nasal Cannula 2.0 28 82 18 98 02/04/19 00:00 97.2 81 20 154/64 (94) 98 02/04/19 00:00 97.2 81 20 154/64 (94) 98 02/04/19 00:00 80 02/04/19 00:00 80 02/03/19 23:35 78 20 100 Nasal Cannula 2.0 28 81 18 99 02/03/19 22:32 75 146/82 02/03/19 21:00 Nasal Cannula 2.0 02/03/19 20:00 96.8 75 20 146/82 (103) 97 02/03/19 20:00 80 02/03/19 19:30 71 20 100 Nasal Cannula 2.0 28 73 18 96 02/03/19 16:00 90 02/03/19 16:00 97.5 54 20 159/70 (99) 93 02/03/19 15:53 90 20 97 Nasal Cannula 2.0 28 85 18 97 02/03/19 14:20 90 118/85 Intake and Output 02/03/19 02/04/19 18:59 06:59 Intake Total 430.0 ml Output Total 200 ml Balance 230.0 ml IV Total 110.0 ml Tube Feeding 320 ml Output Stool Total 200 ml # Voids 2 9 # Bowel Movements 1 Laboratory Tests Test 02/04/19 06:32 White Blood Count 12.2 K/UL (4.8-10.8) H Red Blood Count 3.30 M/UL (4.70-6.10) L Hemoglobin 8.9 G/DL (14.2-18.0) L Hematocrit 29.1 % (42.0-52.0) L Mean Corpuscular Volume 88 FL (80-99) Mean Corpuscular Hemoglobin 26.9 PG (27.0-31.0) L Mean Corpuscular Hemoglobin Concent 30.4 G/DL (32.0-36.0) L Red Cell Distribution Width 18.6 % (11.6-14.8) H Platelet Count 299 K/UL (150-450) Mean Platelet Volume 6.0 FL (6.5-10.1) L Neutrophils (%) (Auto) 74.0 % (45.0-75.0) Lymphocytes (%) (Auto) 16.7 % (20.0-45.0) L Monocytes (%) (Auto) 7.0 % (1.0-10.0) Eosinophils (%) (Auto) 1.9 % (0.0-3.0) Basophils (%) (Auto) 0.4 % (0.0-2.0) Sodium Level 152 MMOL/L (136-145) H Potassium Level 3.5 MMOL/L (3.5-5.1) Chloride Level 114 MMOL/L (98-107) H Carbon Dioxide Level 28 MMOL/L (21-32) Anion Gap 10 mmol/L (5-15) Blood Urea Nitrogen 57 mg/dL (7-18) H Creatinine 2.2 MG/DL (0.55-1.30) H Estimat Glomerular Filtration Rate mL/min (>60) Glucose Level 115 MG/DL (74-106) H Uric Acid 5.2 MG/DL (2.6-7.2) Calcium Level 9.0 MG/DL (8.5-10.1) Phosphorus Level 3.6 MG/DL (2.5-4.9) Magnesium Level 2.1 MG/DL (1.8-2.4) Total Bilirubin 0.2 MG/DL (0.2-1.0) Aspartate Amino Transf (AST/SGOT) 22 U/L (15-37) Alanine Aminotransferase (ALT/SGPT) 42 U/L (12-78) Alkaline Phosphatase 133 U/L (46-116) H C-Reactive Protein, Quantitative 4.2 mg/dL (0.00-0.90) H Pro-B-Type Natriuretic Peptide 6573 pg/mL (0-125) H Total Protein 7.8 G/DL (6.4-8.2) Albumin 2.3 G/DL (3.4-5.0) L Globulin 5.5 g/dL Albumin/Globulin Ratio 0.4 (1.0-2.7) L Objective HEAD AND NECK: No JVD. LUNGS: Clear. CARDIOVASCULAR: Shows regular S1 and S2 with no gallop. ABDOMEN: Soft, status post colostomy and G-tube. EXTREMITIES: Nonpitting edema. Panchito Hardy MD Feb 04, 2019 13:59
--- NOTE | 2019-02-04 14:19 | Infectious Diseases Prog Note ---
Assessment/Plan Assessment/Plan IMPRESSION: Positive blood culture likely contamination Atelectasis\pneumonia. 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 RECOMMENDATION: Discontinue Zosyn Levaquin 750 mg GT X 1. Subjective ROS Limited/Unobtainable: Yes Constitutional: Denies: fever Allergies: Coded Allergies: No Known Allergies (Verified , 12/29/06) Objective Vital Signs Last 24 Hour Vital Signs Date Time Temp Pulse Resp B/P (MAP) Pulse Ox O2 Delivery O2 Flow Rate FiO2 02/04/19 14:09 72 147/64 02/04/19 12:00 72 02/04/19 12:00 97.9 70 20 147/64 (91) 95 02/04/19 10:39 75 16 100 Nasal Cannula 2.0 28 69 18 99 02/04/19 09:00 Nasal Cannula 2.0 02/04/19 08:00 97.3 71 20 118/67 (84) 100 02/04/19 08:00 77 02/04/19 07:13 73 16 100 Nasal Cannula 2.0 28 69 16 99 02/04/19 06:25 87 137/77 02/04/19 04:00 97.0 88 20 137/77 (97) 98 02/04/19 04:00 87 02/04/19 03:55 84 20 100 Nasal Cannula 2.0 28 82 18 98 02/04/19 00:00 97.2 81 20 154/64 (94) 98 02/04/19 00:00 97.2 81 20 154/64 (94) 98 02/04/19 00:00 80 02/04/19 00:00 80 02/03/19 23:35 78 20 100 Nasal Cannula 2.0 28 81 18 99 02/03/19 22:32 75 146/82 02/03/19 21:00 Nasal Cannula 2.0 02/03/19 20:00 96.8 75 20 146/82 (103) 97 02/03/19 20:00 80 02/03/19 19:30 71 20 100 Nasal Cannula 2.0 28 73 18 96 02/03/19 16:00 90 02/03/19 16:00 97.5 54 20 159/70 (99) 93 02/03/19 15:53 90 20 97 Nasal Cannula 2.0 28 85 18 97 02/03/19 14:20 90 118/85 Height (Feet): 6 Height (Inches): 1.00 Weight (Pounds): 189 General Appearance: no acute distress Respiratory/Chest: lungs clear Cardiovascular: normal rate Abdomen: soft, non tender, other - GT feeding Extremities: no edema Neurologic/Psychiatric: alert, responsive, other - limited communication with nodding Laboratory Tests Test 02/04/19 06:32 White Blood Count 12.2 K/UL (4.8-10.8) H Red Blood Count 3.30 M/UL (4.70-6.10) L Hemoglobin 8.9 G/DL (14.2-18.0) L Hematocrit 29.1 % (42.0-52.0) L Mean Corpuscular Volume 88 FL (80-99) Mean Corpuscular Hemoglobin 26.9 PG (27.0-31.0) L Mean Corpuscular Hemoglobin Concent 30.4 G/DL (32.0-36.0) L Red Cell Distribution Width 18.6 % (11.6-14.8) H Platelet Count 299 K/UL (150-450) Mean Platelet Volume 6.0 FL (6.5-10.1) L Neutrophils (%) (Auto) 74.0 % (45.0-75.0) Lymphocytes (%) (Auto) 16.7 % (20.0-45.0) L Monocytes (%) (Auto) 7.0 % (1.0-10.0) Eosinophils (%) (Auto) 1.9 % (0.0-3.0) Basophils (%) (Auto) 0.4 % (0.0-2.0) Sodium Level 152 MMOL/L (136-145) H Potassium Level 3.5 MMOL/L (3.5-5.1) Chloride Level 114 MMOL/L (98-107) H Carbon Dioxide Level 28 MMOL/L (21-32) Anion Gap 10 mmol/L (5-15) Blood Urea Nitrogen 57 mg/dL (7-18) H Creatinine 2.2 MG/DL (0.55-1.30) H Estimat Glomerular Filtration Rate mL/min (>60) Glucose Level 115 MG/DL (74-106) H Uric Acid 5.2 MG/DL (2.6-7.2) Calcium Level 9.0 MG/DL (8.5-10.1) Phosphorus Level 3.6 MG/DL (2.5-4.9) Magnesium Level 2.1 MG/DL (1.8-2.4) Total Bilirubin 0.2 MG/DL (0.2-1.0) Aspartate Amino Transf (AST/SGOT) 22 U/L (15-37) Alanine Aminotransferase (ALT/SGPT) 42 U/L (12-78) Alkaline Phosphatase 133 U/L (46-116) H C-Reactive Protein, Quantitative 4.2 mg/dL (0.00-0.90) H Pro-B-Type Natriuretic Peptide 6573 pg/mL (0-125) H Total Protein 7.8 G/DL (6.4-8.2) Albumin 2.3 G/DL (3.4-5.0) L Globulin 5.5 g/dL Albumin/Globulin Ratio 0.4 (1.0-2.7) L Current Medications Medications (Trade) Dose Ordered Sig/Jared Route PRN Reason Start Time Stop Time Status Last Admin Dose Admin Albuterol/ Ipratropium (Albuterol/ Ipratropium) 3 ml Q4HRT HHN 01/31/19 19:00 02/05/19 18:59 02/04/19 10:35 Dextrose (Dextrose 50%) 25 ml Q30M PRN IV Hypoglycemia 01/31/19 17:00 03/02/19 16:59 Dextrose (Dextrose 50%) 50 ml Q30M PRN IV Hypoglycemia 01/31/19 17:00 03/02/19 16:59 Diltiazem HCl (Cardizem) 30 mg Q8HR GT 01/31/19 22:00 03/02/19 21:59 02/04/19 14:09 Donepezil HCl (Aricept) 5 mg DAILY GT 02/01/19 09:00 03/03/19 08:59 02/04/19 09:04 Dorzolamide/ Timolol (Cosopt) 1 drop BID BOTH EYES 01/31/19 18:00 03/02/19 17:59 02/04/19 09:04 Heparin Sodium (Porcine) (Heparin 5000 units/ml) 5,000 units EVERY 12 HOURS SUBQ 01/31/19 21:00 03/02/19 20:59 02/04/19 09:05 Insulin Aspart (NovoLOG) EVERY 6 HOURS SUBQ 01/31/19 18:00 03/02/19 20:59 02/04/19 06:27 Insulin Detemir (Levemir) 30 units BEDTIME SUBQ 01/31/19 21:00 03/02/19 20:59 02/03/19 22:45 Lansoprazole (Prevacid) 30 mg BID GT 02/01/19 18:00 03/03/19 17:59 02/04/19 09:04 Piperacillin Sod/ Tazobactam Sod 3.375 gm/Sodium Chloride 110 ml @ 27.5 mls/hr Q8HR IVPB 01/31/19 22:00 02/07/19 21:59 02/04/19 14:09 Cheo Bhagat MD Feb 04, 2019 14:19
--- NOTE | 2019-02-04 15:54 | Cardiology Report ---
APPROVED REPORT EKG Measurement Heart [id number] Sinus rhythm with frequent premature ventricular complexes Right bundle branch block Left anterior fascicular block Bifascicular block Abnormal ECG
[2019-02-04 16:00] VITALS: BP 115/69
--- NOTE | 2019-02-04 17:15 | Pulmonology Progress Note ---
Assessment/Plan Assessment/Plan Pulmonary Progress Note HPI: Patient is an 83 year old half-way resident with Past Medical History of Dementia, CVA, Chronic Obstructive Pulmonary Disease, Hypertension, Diabetes , Anemia, CKD, GERD, Previous Diverting Colostomy, PEG for Dysphagia. 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, no seizures, moving all limbs Impression: Right lower lobe pneumonia Chronic renal failure, Cr 2, no hydronephrosis on US Hypernatremia Chronic Obstructive Pulmonary Disease Dementia Previous CVA, Chronic Obstructive Pulmonary Disease Hypertension Diabetes Anemia GERD Previous Diverting Colostomy PEG for Dysphagia Plan: IV Antibiotics O2 PRN Aspiration Precautions HHN 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 Medications PPX ISS G tube feeds Free water as necessary Monitor Labs Laboratory Tests Noted EKG: Rate: normal Rhythm: NSR ST Segments: no acute changes - Right bundle branch block with left anterior fascicular block CXR: Right basal atelectasis/infiltrate Subjective ROS Limited/Unobtainable: No Allergies: Coded Allergies: No Known Allergies (Verified , 12/29/06) Objective Last 24 Hour Vital Signs Date Time Temp Pulse Resp B/P (MAP) Pulse Ox O2 Delivery O2 Flow Rate FiO2 02/04/19 14:56 70 16 100 Nasal Cannula 2.0 28 67 16 99 02/04/19 14:09 72 147/64 02/04/19 12:00 72 02/04/19 12:00 97.9 70 20 147/64 (91) 95 02/04/19 10:39 75 16 100 Nasal Cannula 2.0 28 69 18 99 02/04/19 09:00 Nasal Cannula 2.0 02/04/19 08:00 97.3 71 20 118/67 (84) 100 02/04/19 08:00 77 02/04/19 07:13 73 16 100 Nasal Cannula 2.0 28 69 16 99 02/04/19 06:25 87 137/77 12/13/19 04:00 97.0 88 20 137/77 (97) 98 02/04/19 04:00 87 02/04/19 03:55 84 20 100 Nasal Cannula 2.0 28 82 18 98 02/04/19 00:00 97.2 81 20 154/64 (94) 98 02/04/19 00:00 97.2 81 20 154/64 (94) 98 02/04/19 00:00 80 02/04/19 00:00 80 02/03/19 23:35 78 20 100 Nasal Cannula 2.0 28 81 18 99 02/03/19 22:32 75 146/82 02/03/19 21:00 Nasal Cannula 2.0 02/03/19 20:00 96.8 75 20 146/82 (103) 97 02/03/19 20:00 80 02/03/19 19:30 71 20 100 Nasal Cannula 2.0 28 73 18 96 Intake and Output 02/03/19 02/04/19 18:59 06:59 Intake Total 430.0 ml Output Total 200 ml Balance 230.0 ml IV Total 110.0 ml Tube Feeding 320 ml Output Stool Total 200 ml # Voids 2 9 # Bowel Movements 1 Laboratory Tests 02/04/19 06:32: White Blood Count 12.2H, Red Blood Count 3.30L, Hemoglobin 8.9L, Hematocrit 29.1L, Mean Corpuscular Volume 88, Mean Corpuscular Hemoglobin 26.9L, Mean Corpuscular Hemoglobin Concent 30.4L, Red Cell Distribution Width 18.6H, Platelet Count 299, Mean Platelet Volume 6.0L, Neutrophils (%) (Auto) 74.0, Lymphocytes (%) (Auto) 16.7L, Monocytes (%) (Auto) 7.0, Eosinophils (%) (Auto) 1.9, Basophils (%) (Auto) 0.4, Sodium Level 152H, Potassium Level 3.5, Chloride Level 114H, Carbon Dioxide Level 28, Anion Gap 10, Blood Urea Nitrogen 57H, Creatinine 2.2H, Estimat Glomerular Filtration Rate , Glucose Level 115H, Uric Acid 5.2, Calcium Level 9.0, Phosphorus Level 3.6, Magnesium Level 2.1, Total Bilirubin 0.2, Aspartate Amino Transf (AST/SGOT) 22, Alanine Aminotransferase ( ALT/SGPT) 42, Alkaline Phosphatase 133H, C-Reactive Protein, Quantitative 4.2H, Pro-B-Type Natriuretic Peptide 6573H, Total Protein 7.8, Albumin 2.3L, Globulin 5.5, Albumin/Globulin Ratio 0.4L Current Medications Medications (Trade) Dose Ordered Sig/Jared Route PRN Reason Start Time Stop Time Status Last Admin Dose Admin Albuterol/ Ipratropium (Albuterol/ Ipratropium) 3 ml Q4HRT HHN 01/31/19 19:00 02/05/19 18:59 02/04/19 14:53 Dextrose (Dextrose 50%) 25 ml Q30M PRN IV Hypoglycemia 01/31/19 17:00 03/02/19 16:59 Dextrose (Dextrose 50%) 50 ml Q30M PRN IV Hypoglycemia 01/31/19 17:00 03/02/19 16:59 Diltiazem HCl (Cardizem) 30 mg Q8HR GT 01/31/19 22:00 03/02/19 21:59 02/04/19 14:09 Donepezil HCl (Aricept) 5 mg DAILY GT 02/01/19 09:00 03/03/19 08:59 02/04/19 09:04 Dorzolamide/ Timolol (Cosopt) 1 drop BID BOTH EYES 01/31/19 18:00 03/02/19 17:59 02/04/19 09:04 Heparin Sodium (Porcine) (Heparin 5000 units/ml) 5,000 units EVERY 12 HOURS SUBQ 01/31/19 21:00 03/02/19 20:59 02/04/19 09:05 Insulin Aspart (NovoLOG) EVERY 6 HOURS SUBQ 01/31/19 18:00 03/02/19 20:59 02/04/19 06:27 Insulin Detemir (Levemir) 30 units BEDTIME SUBQ 01/31/19 21:00 03/02/19 20:59 02/03/19 22:45 Lansoprazole (Prevacid) 30 mg BID GT 02/01/19 18:00 03/03/19 17:59 02/04/19 09:04 Pranay Nelson MD Feb 04, 2019 17:15
[2019-02-04] MEDS ORDERED: D5 1/2NS 1000ml IV ONE (17:24)
[2019-02-04] MEDS ORDERED: Sterile Water Irrig 1000ml IRRIG ONE (17:24)
--- NOTE | 2019-02-04 17:28 | NUR ---
NURSE NOTES: Patient discharged. Patient stable, nonverbal, AOx1. No s/sx of pain or distress. RR even and unlabored on 2L NC. Gtube clamped. Colostomy bag in place and intact. No belongings with patient. Discharge paperwork given to ambulance personnel. Daughter called and notified of discharge. Report given to Iman at [facility]. Pt cleared by Dr. Tammy Bhagat, Dr. Lopez and Dr. Hoyos prior to discharge.
--- NOTE | 2019-02-06 13:12 | Discharge Summary ---
Discharge Summary Discharge Summary _ DATE OF ADMISSION: 01/31/2019 DATE OF DISCHARGE: 02/04/2019 DISCHARGED BY: Dr. Rene Potter CONSULTANTS: Dr. Pranay Reese [facility] HOSPITAL COURSE: Patient is an 83-year-old male, who presented to ED due to altered level of consciousness. Patient allegedly has a cough. Patient usually moans with stimulation, but is now unresponsive. Paramedics performed an Accu-Chek which was 137. Initial O2 saturation was 76%, improved, post oxygenation by paramedics. He has medical history of CVA with expressive aphasia, acute on chronic renal failure, GERD, diverting colostomy, parastomal hernia, diabetes mellitus, anemia of chronic disease, hypertension, and dementia. On evaluation at ED, patient was saturating 95% on 15 L nonrebreather mask. Blood work did not show any leukocytosis. Hemoglobin 9, hematocrit 30. Electrolytes were normal. BUN was elevated to 37 and creatinine 2.0. Lactic acid 0.80. Troponin was negative, proBNP 2920. Urinalysis was negative for nitrite, +1 leukocyte esterase. EKG showed normal sinus rhythm with frequent PVCs, no injury. Chest x-ray showed right lower lobe infiltrate. He was given nebulizer treatment and oxygen support. He was given IV Solu-Medrol. He was started on IV antibiotics for lung infiltrates. He was admitted for evaluation of COPD exacerbation and pneumonia. Pulmonology consulted. He was given chest physiotherapy. He was eventually taken off O2 support. He was saturating well on room air. He was given heparin injection for DVT prophylaxis. ID specialist was consulted. Blood culture showed gram-positive cocci. He was given Zosyn and vancomycin. Tabulating Supervisor was consulted for evaluation of renal failure. Potassium went up to 5.3. IV fluid was discontinued. He was given Kayexalate. Renal function was monitored. Kidney ultrasound showed slightly increased left renal echogenicity. Both kidneys were echogenic on prior exam. Negative for hydronephrosis. Incidental finding of bilateral renal cysts. Bookkeeper Assistant was consulted for evaluation of anemia. Patient has history of iron deficiency due to GI bleed. In the past ferritin was low and required iron therapy. Ferritin level was rechecked. Ferritin level 132, appeared to be repleted. Donor Services Specialist was consulted for evaluation of hyper tension and frequent PVCs. EKG showed trigeminal PVC as well as bifascicular block, right bundle branch block. BNP was elevated. He was continued on Cardizem 30 mg every 8 hours and Lasix 20 mg IV daily. Echocardiogram showed normal ejection fraction. GI was consulted for evaluation of gastrostomy tube and colostomy bag. Patient was tolerating gastrostomy tube feeding. There was a colostomy bag in the left lower quadrant with burden of soft stool. Blood culture showed growth of staph epidermidis, likely contamination. Vancomycin was discontinued. BNP down trended. CHF improved with Lasix. He was taken off diuretics. Patient has renal failure, creatinine at baseline. He was eventually discharged back to senior care. 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 DISCHARGE MEDICATIONS: Refer to Discharge Medication List. DISCHARGE INSTRUCTIONS: Follow-up in a week. I have been assigned to complete a discharge summary on this account, I was not involved with the patient's management.--SULLY Crabtree Jacqueline Robles NP Feb 06, 2019 13:12
== END 2019-02-04 17:25 | DRG 194 ==
LOC: EDBD 10:42 → EMR 12:23 → 2E 12:29 → EDBEDREQ 15:34 → 2E 18:39
DX: J18.9 Pneumonia, unspecified organism (principal); Z43.1 Encounter for attention to gastrostomy; I45.2 Bifascicular block; E87.0 Hyperosmolality and hypernatremia; J44.9 Chronic obstructive pulmonary disease, unspecified; N18.9 Chronic kidney disease, unspecified; D64.9 Anemia, unspecified; I69.320 Aphasia following cerebral infarction; I12.9 Hypertensive chronic kidney disease with stage 1 through stage 4 chronic kidney disease, or unspecified chronic kidney disease; F09 Unspecified mental disorder due to known physiological condition; R09.02 Hypoxemia; D50.0 Iron deficiency anemia secondary to blood loss (chronic); R13.10 Dysphagia, unspecified; I49.3 Ventricular premature depolarization; E87.5 Hyperkalemia; K21.9 Gastro-esophageal reflux disease without esophagitis; E88.09 Other disorders of plasma-protein metabolism, not elsewhere classified; E11.22 Type 2 diabetes mellitus with diabetic chronic kidney disease; F03.90 Unspecified dementia, unspecified severity, without behavioral disturbance, psychotic disturbance, mood disturbance, and anxiety
CPT/HCPCS: 36415; 71045; 76770; 80048; 80053; 80202; 81003; 82550; 82607; 82728; 82746; 82962; 82977; 83036; 83540; 83550; 83605; 83735; 83880; 84100; 84443; 84484; 84550; 85007; 85025; 85610; 85730; 86140; 87040; 87081; 87181; 93005; 93306; 94640; 94664; 96361; 96365; 96368; 96375; 99285; J1815; J7030; J7620; S5561